=== PATIENT | male | born 1945 | race Caucasian/White ===

== ENCOUNTER 2017-07-15 16:09 | Inpatient (IN) | payer MEDICARE ==
[~2017-07-15] VITALS: Ht 188 cm; Wt 99.5 kg
[2017-07-15] VITALS (9 sets, daily range): BP systolic 93–112; BP diastolic 61–71; PULSE 60–74; RESP 18–22; TEMP 97.2–97.6; O2SAT 85–100
[2017-07-15] MEDS: methylPREDNISolone SOD SUCC 40 MG/1 ML VIAL IV PUSH SCH ×5 (06:00→22:58)
[~2017-07-15 16:09] MED LIST: ALLO100T PO; AMLO2.5T PO; ASPI81TA82 PO; FERR324T4 PO; FOLI1TAB PO; FURO1TAB93 PO; LEVO.05 PO; METO100T PO; MULT-65 PO; Z.0.OXYGENDME NC
--- NOTE | 2017-07-15 16:50 | PD ---
HPI Chief Complaint: Respiratory Symptoms Time Seen by Provider: 16:47 Travel History International Travel<30 days: No Contact w/Intl Traveler<30days: No Traveled to known affect area: No History of Present Illness HPI Patient complaining of increased leg swelling bilaterally as well as increasing shortness of breath. Patient states that he uses 2 L of nasal cannula oxygen all the time. Patient states that he is shortness of breath have been progressively worsening. Denies any active chest pain. Shortness of breath is worsened by laying flat on his back improves when he leans forward or sits up. Patient was also increasing his own home O2 in an attempt to compensate for the progressive shortness of breath. He started to make an appointment and to follow-up with his primary because he was running out of oxygen. Patient states that he has been compliant with his Lasix. Dr. Culp insert primary care doctor Allergies to cefuroxime, ciprofloxacin Past medical history significant for seizures CHF hypercholesterolemia A. fib hypertension COPD GERD appendectomy hypothyroid renal disease history of cirrhosis as well PFSH Past Medical History Hx Anticoagulant Therapy: Yes (325 MG ASA DAILY) Arthritis: Yes Asthma: No Autoimmune Disease: No Blood Disorders: No Heart Rhythm Problems: No Cancer: No Cardiovascular Problems: Yes High Cholesterol: Yes Chemotherapy: No Chest Pain: No Congestive Heart Failure: Yes COPD: No Diabetes: No Diminished Hearing: No Endocrine: No Gastrointestinal Disorders: No Glaucoma: No Gout: Yes Genitourinary: No Hypertension: Yes Immune Disorder: No Implanted Vascular Access Dvce: No Musculoskeletal: Yes Neurologic: No Psychiatric: No Reproductive: No Respiratory: Yes Immunizations Current: Yes Myocardial Infarction: No Radiation Therapy: No Seizures: Yes Sleep Apnea: No Thyroid Disease: Yes (on synthroid) Past Surgical History Abdominal Surgery: Yes (50 YEARS AGO APPENDECTOMY) AICD: No Appendectomy: Yes (9 yrs old) Cardiac Surgery: No Ear Surgery: No Endocrine Surgery: No Eye Surgery: No Genitourinary Surgery: No Gynecologic Surgery: No Insulin Pump: No Joint Replacement: No Neurologic Surgery: No Oral Surgery: No Pacemaker: No Thoracic Surgery: No Other Surgery: Yes Social History Alcohol Use: No (states "not any more") Tobacco Use: No Substance Use: No Allergies-Medications (Allergen,Severity, Reaction): Coded Allergies: cefuroxime (Unverified Allergy, Intermediate, hives, 07/15/17) ciprofloxacin (Unverified Allergy, Intermediate, HIVES, 07/15/17) Reported Meds & Prescriptions Reported Meds & Active Scripts Active Reported Levothyroxine (Levothyroxine Sodium) 50 Mcg Tab 50 Mcg PO DAILY Metoprolol Tartrate 100 Mg Tab 100 Mg PO DAILY Furosemide 20 Mg Tab 20 Mg PO BID Amlodipine (Amlodipine Besylate) 5 Mg Tab 5 Mg PO DAILY Folic Acid 1 Mg Tablet 1 Mg PO HS Allopurinol 300 Mg Tab 150 Mg PO HS Aspirin 81 Mg Chew 81 Mg CHEW DAILY Once Daily (Multivitamin) 1 Each Tablet 1 Tab PO DAILY Duoneb (Ipratropium-Albuterol Neb) 0.5-2.5 Mg/3 Ml Neb 1 Nebule INH Q6HR NEB PRN Oxygen (O2) Device Liter BK.CANULA CONTINUOUS Oxygen Concentrator Portable Gaseous 2 L/min via Nasal Canula Continuous For 99 months Review of Systems General / Constitutional: No: Fever Eyes: No: Visual changes HENT: No: Headaches Cardiovascular: Positive: Edema Respiratory: Positive: Shortness of Breath, Orthopnea Gastrointestinal: No: Abdominal Pain Genitourinary: No: Dysuria Musculoskeletal: No: Pain Skin: No Rash Neurologic: No: Weakness Psychiatric: No: Depression Endocrine: No: Polydipsia Hematologic/Lymphatic: No: Easy Bruising Physical Exam Narrative GENERAL: SKIN: Warm and dry. HEAD: Atraumatic. Normocephalic. EYES: Pupils equal and round. No scleral icterus. No injection or drainage. ENT: No nasal bleeding or discharge. Mucous membranes pink and moist. NECK: Trachea midline. No JVD. CARDIOVASCULAR: Tachycardic and irregular RESPIRATORY: No accessory muscle use. Tachypneic, bilateral crackles up to half of the lower lungs GASTROINTESTINAL: Abdomen soft, non-tender, nondistended. MUSCULOSKELETAL: Extremities without clubbing, presents acrocyanosis, bilateral pitting edema 3+ . No obvious deformities. NEUROLOGICAL: Awake and alert. No obvious cranial nerve deficits. Motor grossly within normal limits. Five out of 5 muscle strength in the arms and legs. Normal speech. PSYCHIATRIC: Appropriate mood and affect; insight and judgment normal. Data Data Last Documented VS Vital Signs Date Time Temp Pulse Resp B/P (MAP) Pulse Ox O2 Delivery O2 Flow Rate FiO2 07/15/17 19:00 60 20 93/61 (72) 99 BiPAP 07/15/17 18:31 50 2/22/18 16:57 2.00 07/15/17 16:27 97.2 Orders Orders Complete Blood Count With Diff (07/15/17 16:50) Comprehensive Metabolic Panel (07/15/17 16:50) B-Type Natriuretic Peptide (07/15/17 16:50) Act Partial Throm Time (Ptt) (07/15/17 16:50) Prothrombin Time / Inr (Pt) (07/15/17 16:50) Ckmb (Isoenzyme) Profile (07/15/17 16:50) Troponin I (07/15/17 16:50) Arterial Blood Gas (Abg) (07/15/17 16:50) Influenzae A/B Antigen (07/15/17 16:50) Iv Access Insert/Monitor (07/15/17 16:50) Electrocardiogram (07/15/17 16:50) Ecg Monitoring (07/15/17 16:50) Oximetry (07/15/17 16:50) Oxygen Administration (07/15/17 16:50) Chest, Single Ap (07/15/17 16:50) Sodium Chloride 0.9% Flush (Ns Flush) (07/15/17 17:00) Furosemide Inj (Lasix Inj) (07/15/17 17:00) Resp Bipap / Cpap Non Invas Vt (07/15/17 16:50) Labs Laboratory Tests Test 07/15/17 17:00 07/15/17 17:35 White Blood Count 8.1 TH/MM3 Red Blood Count 5.08 MIL/MM3 Hemoglobin 16.1 GM/DL Hematocrit 47.0 % Mean Corpuscular Volume 92.5 FL Mean Corpuscular Hemoglobin 31.7 PG Mean Corpuscular Hemoglobin Concent 34.2 % Red Cell Distribution Width 17.8 % Platelet Count 280 TH/MM3 Mean Platelet Volume 7.6 FL Neutrophils (%) (Auto) 80.4 % Lymphocytes (%) (Auto) 6.5 % Monocytes (%) (Auto) 7.1 % Eosinophils (%) (Auto) 3.2 % Basophils (%) (Auto) 2.8 % Neutrophils # (Auto) 6.5 TH/MM3 Lymphocytes # (Auto) 0.5 TH/MM3 Monocytes # (Auto) 0.6 TH/MM3 Eosinophils # (Auto) 0.3 TH/MM3 Basophils # (Auto) 0.2 TH/MM3 CBC Comment DIFF FINAL Differential Comment Prothrombin Time 11.4 SEC Prothromb Time International Ratio 1.1 RATIO Activated Partial Thromboplast Time 26.9 SEC Blood Urea Nitrogen 25 MG/DL Creatinine 1.60 MG/DL Random Glucose 74 MG/DL Total Protein 6.1 GM/DL Albumin 2.0 GM/DL Calcium Level 8.1 MG/DL Alkaline Phosphatase 80 U/L Aspartate Amino Transf (AST/SGOT) 20 U/L Alanine Aminotransferase (ALT/SGPT) 10 U/L Total Bilirubin 0.9 MG/DL Sodium Level 135 MEQ/L Potassium Level 4.2 MEQ/L Chloride Level 100 MEQ/L Carbon Dioxide Level 29.3 MEQ/L Anion Gap 6 MEQ/L Estimat Glomerular Filtration Rate 43 ML/MIN Total Creatine Kinase 88 U/L Troponin I LESS THAN 0.02 NG/ML B-Type Natriuretic Peptide 842 PG/ML Blood Gas Puncture Site LT RADIAL Blood Gas Patient Temperature 98.6 Blood Gas HCO3 26 mmol/L Blood Gas Base Excess 3.0 mmol/L Blood Gas Oxygen Saturation 96 % Arterial Blood pH 7.49 Arterial Blood Partial Pressure CO2 35 mmHG Arterial Blood Partial Pressure O2 120 mmHG Arterial Blood Oxygen Content 20.4 Vol % Arterial Blood Carboxyhemoglobin 2.5 % Arterial Blood Methemoglobin 0.9 % Blood Gas Hemoglobin 15.1 G/DL Oxygen Delivery Device BIPAP Blood Gas Ventilator Setting IPAP 15/EPAP 5 Blood Gas Inspired Oxygen 50 % [facility] Medical Decision Making Medical Screen Exam Complete: Yes Emergency Medical Condition: Yes Medical Record Reviewed: Yes Interpretation(s) EKG shows atrial fibrillation with controlled ventricular rate in the 60s, no major evidence of ST elevation noted. Differential Diagnosis Congestive heart failure decompensated versus hypoxic respiratory failure versus pulmonary edema versus Narrative Course The patient has history of congestive heart failure as well as chronic kidney disease and atrial fibrillation, this patient came in on oxygen yet still with a good plETH wave patient's pulse ox was reading in the 70s on 2 L, and on 4 L up to 85 again with good PLETH wave, both of these are severely hypoxemic and abnormal. Patient will be placed on BiPAP and oxygen. To attempt and help the patient compensate CBC shows no leukocytosis no shift and no anemia. Coagulation profile within normal limits ABG after CPAP on 50% IPAP 15 EPAP 5 BiPAP shows ABG pH 7.49 PCO2 35 PaO2 120 Chemistry shows a beta natruretic peptide of 842 troponin of less than 0.02 creatinine 1.6 with a GFR of 43 rest of the electrolytes are within normal limits these findings are consistent with chronic kidney disease as well as congestive heart failure. Chest x-ray is consistent with cardiomegaly and bilateral lower lung edema As previously mentioned the patient was aggressively treated with BiPAP oxygen Lasix and now the patient is doing much better with a pulse ox 96-98 while on BiPAP. Currently do not believe that the patient is in extremis anymore and does not require or need any intubation at this present time. Currently awaiting [facility] for admission Critical Care Narrative CRITICAL CARE NOTE: With evaluation of the patient, labs, EKG, receipt of radiologic studies, administration of medications, reevaluation the patient and discussion of the patient with the admitting physicians, the total critical care time was [60] minutes. Time to perform other separately billable procedures was not included in the critical care time. Physician Communication Physician Communication [facility] recommended admission for dairy nutrition specialist, [id number] dairy nutrition specialist was called for admission Diagnosis Primary Impression: Decompensated CHF exacerbation on BiPAP Additional Impression: Hypoxemic respiratory failure status post BiPAP Admitting Information Admitting Physician Requests: Admit Kwan Aranda MD Jul 15, 2017 16:50
[2017-07-15] MEDS ORDERED: SODIUM CHLORIDE 0.9% FLUSH 10 ML FLUSH IVF PRN (17:00)
[2017-07-15] MEDS ORDERED: FUROSEMIDE 20 MG/2 ML VIAL IVP ONE (17:00)
[2017-07-15] MEDS ORDERED: ALLO300T2 PO (17:20)
[2017-07-15] MEDS ORDERED: IPRASOL INH (17:20)
[2017-07-15] MEDS ORDERED: ASPI-516 CHEW (17:20)
[2017-07-15] MEDS ORDERED: OXYGENDME NAS.CANULA (17:20)
[2017-07-15] MEDS ORDERED: METO100T PO (17:20)
[2017-07-15] MEDS ORDERED: ONCETAB7 PO (17:20)
[2017-07-15] MEDS ORDERED: AMLO5TAB2 PO (17:20)
[2017-07-15] MEDS ORDERED: FOLI1TAB6 PO (17:20)
[2017-07-15] MEDS ORDERED: LEVO50TA4 PO (17:20)
[2017-07-15] MEDS ORDERED: FURO20TA PO (17:20)
[2017-07-15 17:27] LABS: AUTOMATED NEUTROPHIL # 6.5 TH/MM3 (1.8-7.7); BASOPHIL # 0.2 TH/MM3 (0-0.2); BASOPHIL % 2.8 % (0.0-2.0); EOSINOPHIL # 0.3 TH/MM3 (0-0.4); EOSINOPHIL % 3.2 % (0.0-4.0); HEMOGLOBIN 16.1 GM/DL (13.0-17.0); LYMPH % 6.5 % (9.0-44.0); LYMPHOCYTE # 0.5 TH/MM3 (1.0-4.8); MEAN CELL VOLUME 92.5 FL (80.0-100.0); MEAN CORPUSCULAR HEMOGLOBIN 31.7 PG (27.0-34.0); MEAN CORPUSCULAR HGB CONC 34.2 % (32.0-36.0); MEAN PLATELET VOLUME 7.6 FL (7.0-11.0); MONO % 7.1 % (0.0-8.0); MONOCYTE # 0.6 TH/MM3 (0-0.9); NEUT % 80.4 % (16.0-70.0); PLATELET COUNT 280 TH/MM3 (150-450); RED BLOOD COUNT 5.08 MIL/MM3 (4.50-5.90); RED CELL DISTRIBUTION WIDTH 17.8 % (11.6-17.2); WHITE BLOOD COUNT 8.1 TH/MM3 (4.0-11.0)
--- NOTE | 2017-07-15 17:28 | RADRPT ---
EXAM DATE/TIME: 07/15/2017 17:12 [facility] COMPARISON: CHEST SINGLE AP, July 18, 2015, 6:28. INDICATIONS : Shortness of breath. MEDICAL HISTORY : Chronic obstructive pulmonary disease. Congestive heart failure. Hypercholesterolemia. Hyperten greg. Thyroid disease, of synthroid. Emphysema. Dyspnea. Arthritis. Gout. Shingles. SURGICAL HISTORY : Appendectomy ENCOUNTER: Initial ACUITY: 1 day PAIN SCORE: 0/10 LOCATION: Bilateral chest FINDINGS: Moderately severe cardiomegaly similar to prior exam in 2016. There are patchy areas of partially co nsolidative infiltrate in the mid and lower lungs bilaterally. The upper lungs are clear. CONCLUSION: Cardiomegaly and patchy areas of airspace opacity in the mid and lower lungs bilaterally. Tico Rivers MD on July 15, 2017 at 17:26 Board Certified Radiologist. This report was verified electronically.
[2017-07-15 17:36] LABS: CHLORIDE 100 MEQ/L (98-107); SODIUM (NA) 135 MEQ/L (136-145)
[2017-07-15 17:39] LABS: CALCIUM 8.1 MG/DL (8.5-10.1)
[2017-07-15 17:40] LABS: BICARBONATE 29.3 MEQ/L (21.0-32.0); BLOOD UREA NITROGEN 25 MG/DL (7-18); GLUCOSE,RANDOM 74 MG/DL (74-106)
[2017-07-15 17:41] LABS: INTERNATIONAL NORMALIZED RATIO 1.1 RATIO; PROTHROMBIN TIME - PATIENT 11.4 SEC (9.8-11.6)
[2017-07-15 17:43] LABS: ALT (GPT) 10 U/L (12-78); AST (GOT) 20 U/L (15-37); GLOMERULAR FILTRATION RATE 43 ML/MIN (>89)
[2017-07-15 17:44] LABS: TOTAL BILIRUBIN ADULT 0.9 MG/DL (0.2-1.0)
[2017-07-15 17:45] LABS: TOTAL PROTEIN 6.1 GM/DL (6.4-8.2)
[2017-07-15 17:46] LABS: ALKALINE PHOSPHATASE 80 U/L (45-117)
[2017-07-15 17:48] LABS: TROPONIN I LESS THAN 0.02 NG/ML (0.02-0.05)
[2017-07-15] MEDS ORDERED: SODIUM CHLORIDE 0.9% FLUSH 10 ML FLUSH IV FLUSH PRN (20:15)
[2017-07-15] MEDS ORDERED: MISCELLANEOUS NURSING INFORMATION XX SCH (20:15)
[2017-07-15] MEDS ORDERED: CHLORHEXIDINE GLUCONATE 2 % 1 PACK (2 CLOTHS) TOP PRN (20:15)
[2017-07-15] MEDS ORDERED: BISACODYL 10 MG SUPP RECTAL PRN (21:00)
[2017-07-15] MEDS ORDERED: LACTULOSE SYRUP 20 GM/30 ML CUP PO PRN (21:00)
[2017-07-15] MEDS ORDERED: TEMAZEPAM 15 MG CAP PO PRN (21:00)
[2017-07-15] MEDS ORDERED: ONDANSETRON HCL 4 MG/2 ML VIAL IV PUSH PRN (21:00)
[2017-07-15] MEDS: ALLOPURINOL 300 MG TAB PO SCH (21:00)
[2017-07-15] MEDS ORDERED: MAGNESIUM HYDROXIDE SUSP 30 ML CUP PO PRN (21:00)
[2017-07-15] MEDS ORDERED: PILL SPLITTER OTHER PRN (21:00)
[2017-07-15] MEDS ORDERED: FUROSEMIDE 20 MG TAB PO SCH (21:00)
[2017-07-15] MEDS ORDERED: SENNOSIDES 8.6 MG TAB PO PRN (21:00)
[2017-07-15] MEDS: DOCUSATE SODIUM 50 MG/SENNA 8.6 MG TAB PO SCH (21:21)
[2017-07-15] MEDS: FAMOTIDINE 20 MG TAB PO SCH (21:21)
[2017-07-15] MEDS: FOLIC ACID 1 MG TAB PO SCH (21:21)
[2017-07-15] MEDS: DOXYCYCLINE HYCLATE 100 MG CAP PO SCH (21:21)
[2017-07-15] MEDS: SODIUM CHLORIDE 0.9% FLUSH 10 ML FLUSH IV FLUSH SCH (21:22)
[2017-07-15] MEDS ORDERED: RESP: ALBUTEROL 2.5 MG/IPRATROPIUM 0.5 MG NEB (PRN) INH (22:00)
[2017-07-15] MEDS: HEPARIN SODIUM - SQ 10,000 UNITS/ML VIAL SQ SCH (22:22)
[2017-07-15 22:25] LABS: BICARBONATE 32.8 MEQ/L (21.0-32.0)
[2017-07-15 22:28] LABS: CREATININE 1.5 MG/DL (0.60-1.30)
[2017-07-15] MEDS: RESP: ALBUTEROL 2.5 MG/IPRATROPIUM 0.5 MG NEB (SCH) INH (23:50)
[2017-07-16] VITALS (37 sets, daily range): BP systolic 80–105; BP diastolic 49–69; PULSE 66–108; RESP 10–30; TEMP 97.4–98.8; O2SAT 88–97
[2017-07-16] MEDS ORDERED: ACETAMINOPHEN 325 MG TAB PO PRN
[2017-07-16 02:31] LABS: AUTOMATED NEUTROPHIL # 5.7 TH/MM3 (1.8-7.7); BASOPHIL % 0.3 % (0.0-2.0); EOSINOPHIL % 0.4 % (0.0-4.0); HEMATOCRIT 43.5 % (39.0-51.0); HEMOGLOBIN 14.2 GM/DL (13.0-17.0); LYMPH % 4.2 % (9.0-44.0); LYMPHOCYTE # 0.3 TH/MM3 (1.0-4.8); MEAN CORPUSCULAR HEMOGLOBIN 30.1 PG (27.0-34.0); MEAN CORPUSCULAR HGB CONC 32.7 % (32.0-36.0); MEAN PLATELET VOLUME 7.9 FL (7.0-11.0); MONO % 0.7 % (0.0-8.0); NEUT % 94.4 % (16.0-70.0); PLATELET COUNT 243 TH/MM3 (150-450); RED BLOOD COUNT 4.73 MIL/MM3 (4.50-5.90); RED CELL DISTRIBUTION WIDTH 17.1 % (11.6-17.2)
[2017-07-16 02:41] LABS: CHLORIDE 101 MEQ/L (98-107); SODIUM (NA) 136 MEQ/L (136-145)
[2017-07-16 02:44] LABS: CALCIUM 7.7 MG/DL (8.5-10.1)
[2017-07-16 02:45] LABS: ALBUMIN 1.7 GM/DL (3.4-5.0); BICARBONATE 28.3 MEQ/L (21.0-32.0); BLOOD UREA NITROGEN 28 MG/DL (7-18); GLUCOSE,RANDOM 121 MG/DL (74-106); INTERNATIONAL NORMALIZED RATIO 1.2 RATIO; MAGNESIUM 2.1 MG/DL (1.5-2.5)
[2017-07-16 02:48] LABS: ALT (GPT) 9 U/L (12-78); AST (GOT) 19 U/L (15-37); GLOMERULAR FILTRATION RATE 46 ML/MIN (>89); PHOSPHORUS 3.8 MG/DL (2.5-4.9)
[2017-07-16 02:49] LABS: TOTAL BILIRUBIN ADULT 0.9 MG/DL (0.2-1.0); TOTAL PROTEIN 5.2 GM/DL (6.4-8.2)
[2017-07-16 02:51] LABS: ALKALINE PHOSPHATASE 72 U/L (45-117)
[2017-07-16] MEDS: RESP: ALBUTEROL 2.5 MG/IPRATROPIUM 0.5 MG NEB (SCH) INH (03:01)
[2017-07-16] MEDS: CHLORHEXIDINE GLUCONATE 2 % 1 PACK (2 CLOTHS) TOP SCH (04:00)
[2017-07-16] MEDS: HEPARIN SODIUM - SQ 10,000 UNITS/ML VIAL SQ SCH ×3 (06:01→20:25)
[2017-07-16] MEDS: LEVOTHYROXINE SODIUM 50 MCG TAB PO SCH (06:01)
[2017-07-16] MEDS: methylPREDNISolone SOD SUCC 40 MG/1 ML VIAL IV PUSH SCH ×3 (06:01→17:55)
--- NOTE | 2017-07-16 06:26 | RADRPT ---
EXAM DATE/TIME: 07/16/2017 05:33 [facility] COMPARISON: CHEST SINGLE AP, July 15, 2017, 17:12. INDICATIONS : Shortness of breath MEDICAL HISTORY : Chronic obstructive pulmonary disease. Congestive heart failure. Hypercholesterolemia. Hypertension. Thyroid disease, of synthroid. Emphysema. Dyspnea. Arthritis. Gout. Shingles. SURGICAL HISTORY : Appendectomy. ENCOUNTER: Subsequent ACUITY: 2 days PAIN SCORE: 0/10 LOCATION: Bilateral chest FINDINGS: Bibasilar consolidation again noted with small pleural effusions not significantly changed. No pneumo thorax. Mild to moderate cardiomegaly again noted. CONCLUSION: Persistent failure. No significant change. Mark Fuentes MD on July 16, 2017 at 6:24 Board Certified Radiologist. This report was verified electronically.
--- NOTE | 2017-07-16 07:04 | HHI.HP ---
[facility] Service Critical Care Medicine Primary Care Physician Bill Culp MD Admission Diagnosis CHF Diagnosis: (1) Acute hypoxemic respiratory failure Diagnosis: Principal (2) Acute exacerbation of CHF (congestive heart failure) Diagnosis: Principal (3) COPD with acute exacerbation Diagnosis: Principal (4) Acute kidney injury superimposed on CKD Diagnosis: Principal (5) Cellulitis of right leg Diagnosis: Secondary (6) Chronic atrial fibrillation Diagnosis: Secondary (7) Hypothyroidism Diagnosis: Secondary (8) Hypertension Diagnosis: Secondary Chief Complaint: Shortness of breath and hypoxia Travel History International Travel<30 Days: No Contact w/Intl Traveler <30 Da: No Traveled to Known Affected Are: No Sepsis Criteria SIRS Criteria (2 or more): RR > 20 or PaCO2 < 32 History of Present Illness Patient is a 71-year-old male with past medical history significant for congestive heart failure, dyslipidemia, chronic A. fib, COPD, hypertension, hypothyroidism, chronic kidney disease, history of alcoholic liver disease who presented to the emergency department yesterday with shortness of breath and increasing bilateral pedal edema. He also gave history of orthopnea. Uses 2 L of home oxygen on arrival to the ED his oxygen saturation was in mid 70s. Patient was immediately placed on BiPAP with 50% oxygen, with improvement in oxygen saturation. ABG on 50% BIPAP ABG pH 7.49 PCO2 35 PaO2 120. Chest x-ray showed evidence of congestive heart failure. Chemistry shows a BNP of 842, creatinine 1.6. Serial troponins have been negative. Patient was admitted to the ICU with admitting diagnosis of CHF exacerbation and COPD exacerbation. Patient was placed on IV Lasix 40 mg every 12, IV Solu-Medrol 40 mg every 6 hours DuoNeb every 4 hours scheduled and as needed and antibiotics with doxycycline I evaluated the patient in the ICU today. He tolerated BiPAP well currently on nasal cannula with good oxygen saturation. Mild tachypnea but subjectively feels improved. Urine output 700 mL since coming to the ICU. Chest x-ray on my review shows slight improvement in congestive heart failure Review of Systems ROS Limitations: Other Past Family Social History Allergies: Coded Allergies: cefuroxime (Unverified Allergy, Intermediate, hives, 07/15/17) ciprofloxacin (Unverified Allergy, Intermediate, HIVES, 07/15/17) Past Medical History COPD O2 dependent CHF Chronic A fib Obesity Hypertension Hypothyroidism CKD History of alcohol abuse quit in 2014 Past Surgical History Appendectomy Reported Medications Levothyroxine (Levothyroxine Sodium) 50 Mcg Tab 50 Mcg PO DAILY Metoprolol Tartrate 100 Mg Tab 100 Mg PO DAILY Furosemide 20 Mg Tab 20 Mg PO BID Amlodipine (Amlodipine Besylate) 5 Mg Tab 5 Mg PO DAILY Folic Acid 1 Mg Tablet 1 Mg PO HS Allopurinol 300 Mg Tab 150 Mg PO HS Aspirin 81 Mg Chew 81 Mg CHEW DAILY Once Daily (Multivitamin) 1 Each Tablet 1 Tab PO DAILY Duoneb (Ipratropium-Albuterol Neb) 0.5-2.5 Mg/3 Ml Neb 1 Nebule INH Q6HR NEB PRN Oxygen (O2) Active Ordered Medications Reviewed Family History Father in his late 70s unknown causes, Mother is has lupus Social History 50 pk yr history quit about 15 yrs ago Quit alcohol use 2 yrs ago Physical Exam Vital Signs Vital Signs Date Time Temp Pulse Resp B/P (MAP) Pulse Ox O2 Delivery O2 Flow Rate FiO2 07/16/17 06:00 72 13 84/53 (63) 92 07/16/17 06:00 72 07/16/17 05:00 76 19 85/60 (68) 90 07/16/17 04:00 97.8 76 22 87/52 (64) 88 07/16/17 04:00 76 07/16/17 03:00 70 15 90/61 (71) 93 07/16/17 03:00 94 Nasal Cannula 6.00 07/16/17 02:00 66 07/16/17 02:00 66 16 90/62 (71) 92 07/16/17 01:40 95 30 07/16/17 01:00 68 10 87/54 (65) 93 07/16/17 00:00 66 07/16/17 00:00 97 30 07/16/17 00:00 Bi-Pap 30 07/16/17 00:00 97.8 66 19 98/65 (76) 95 07/15/17 23:00 74 22 105/69 (81) 91 07/15/17 22:30 92 Nasal Cannula 6.00 07/15/17 22:10 Bi-Pap 40 07/15/17 22:05 07/15/17 22:00 97.6 112/70 (84) 07/15/17 19:51 100 40 07/15/17 19:00 60 20 93/61 (72) 99 BiPAP 07/15/17 18:31 63 20 99/69 (79) 99 BiPAP 50 07/15/17 17:13 99 50 07/15/17 16:57 22 85 Nasal Cannula 2.00 07/15/17 16:57 85 Nasal Cannula 2.00 07/15/17 16:51 85 Nasal Cannula 4.00 07/15/17 16:27 97.2 61 18 109/71 (84) Physical Exam GENERAL: Lying in bed, mild respiratory distress, on NC SKIN: Warm and dry. HEAD: Atraumatic. Normocephalic. EYES: Pupils equal and round. No scleral icterus. ENT: No nasal bleeding or discharge. Airway patent NECK: Trachea midline. CARDIOVASCULAR: Atrial fibrillation rate controlled RESPIRATORY: Mild tachypnea, bilateral crackles at lung bases GASTROINTESTINAL: Abdomen soft, non-tender, nondistended. MUSCULOSKELETAL: Extremities bilateral pitting edema 2+ . Chronic venous stasis changes. Possible cellulitis right lower extremity (patient states chronically red) NEUROLOGICAL: Awake and alert. No obvious cranial nerve deficits. Motor grossly within normal limits. Laboratory Laboratory Tests Test 07/15/17 17:00 07/15/17 17:35 07/15/17 20:25 07/15/17 21:47 White Blood Count 8.1 Red Blood Count 5.08 Hemoglobin 16.1 Hematocrit 47.0 Mean Corpuscular Volume 92.5 Mean Corpuscular Hemoglobin 31.7 Mean Corpuscular Hemoglobin Concent 34.2 Red Cell Distribution Width 17.8 Platelet Count 280 Mean Platelet Volume 7.6 Neutrophils (%) (Auto) 80.4 Lymphocytes (%) (Auto) 6.5 Monocytes (%) (Auto) 7.1 Eosinophils (%) (Auto) 3.2 Basophils (%) (Auto) 2.8 Neutrophils # (Auto) 6.5 Lymphocytes # (Auto) 0.5 Monocytes # (Auto) 0.6 Eosinophils # (Auto) 0.3 Basophils # (Auto) 0.2 CBC Comment DIFF FINAL Differential Comment Prothrombin Time 11.4 Prothromb Time International Ratio 1.1 Activated Partial Thromboplast Time 26.9 Blood Urea Nitrogen 25 25 Creatinine 1.60 1.50 Random Glucose 74 76 Total Protein 6.1 Albumin 2.0 Calcium Level 8.1 8.0 Alkaline Phosphatase 80 Aspartate Amino Transf (AST/SGOT) 20 Alanine Aminotransferase (ALT/SGPT) 10 Total Bilirubin 0.9 Sodium Level 135 137 Potassium Level 4.2 4.1 Chloride Level 100 99 Carbon Dioxide Level 29.3 32.8 Anion Gap 6 5 Estimat Glomerular Filtration Rate 43 46 Total Creatine Kinase 88 Troponin I LESS THAN 0.02 LESS THAN 0.02 B-Type Natriuretic Peptide 842 Blood Gas Puncture Site LT RADIAL Blood Gas Patient Temperature 98.6 Blood Gas HCO3 26 Blood Gas Base Excess 3.0 Blood Gas Oxygen Saturation 96 Arterial Blood pH 7.49 Arterial Blood Partial Pressure CO2 35 Arterial Blood Partial Pressure O2 120 Arterial Blood Oxygen Content 20.4 Arterial Blood Carboxyhemoglobin 2.5 Arterial Blood Methemoglobin 0.9 Blood Gas Hemoglobin 15.1 Oxygen Delivery Device BIPAP Blood Gas Ventilator Setting IPAP 15/EPAP 5 Blood Gas Inspired Oxygen 50 Test 07/15/17 22:43 07/16/17 02:14 Nasal Screen MRSA (PCR) MRSA NOT DETECTED White Blood Count 6.0 Red Blood Count 4.73 Hemoglobin 14.2 Hematocrit 43.5 Mean Corpuscular Volume 92.0 Mean Corpuscular Hemoglobin 30.1 Mean Corpuscular Hemoglobin Concent 32.7 Red Cell Distribution Width 17.1 Platelet Count 243 Mean Platelet Volume 7.9 Neutrophils (%) (Auto) 94.4 Lymphocytes (%) (Auto) 4.2 Monocytes (%) (Auto) 0.7 Eosinophils (%) (Auto) 0.4 Basophils (%) (Auto) 0.3 Neutrophils # (Auto) 5.7 Lymphocytes # (Auto) 0.3 Monocytes # (Auto) 0.0 Eosinophils # (Auto) 0.0 Basophils # (Auto) 0.0 CBC Comment DIFF FINAL Differential Comment Prothrombin Time 12.0 Prothromb Time International Ratio 1.2 Activated Partial Thromboplast Time 27.4 Blood Urea Nitrogen 28 Creatinine 1.50 Random Glucose 121 Total Protein 5.2 Albumin 1.7 Calcium Level 7.7 Phosphorus Level 3.8 Magnesium Level 2.1 Alkaline Phosphatase 72 Aspartate Amino Transf (AST/SGOT) 19 Alanine Aminotransferase (ALT/SGPT) 9 Total Bilirubin 0.9 Sodium Level 136 Potassium Level 4.3 Chloride Level 101 Carbon Dioxide Level 28.3 Anion Gap 7 Estimat Glomerular Filtration Rate 46 Troponin I LESS THAN 0.02 Date/Time Source Procedure Growth Status 07/15/17 17:00 Nasal Washing Influenza Types A,B Antigen (CORRINE) - Final NEGATIVE FOR FLU A AND B ANTIGEN.... Complete Result Diagram: 07/16/1721307/16/17213 Imaging CXR shows evidence of CHF Septic Shock Reassessment Septic shock perfusion: reassessment completed Caprini VTE Risk Assessment Caprini VTE Risk Assessment: Mod/High Risk (score >= 2) Caprini Risk Assessment Model Point Value = 1 Point Value = 2 Point Value = 3 Point Value = 5 Age 41-60 Minor surgery BMI > 25 kg/m2 Swollen legs Varicose veins or History of unexplained or recurrent spontaneous Oral contraceptives or hormone replacement Sepsis (< 1 month) Serious lung disease, including pneumonia (< 1 month) Abnormal pulmonary function Acute myocardial infarction Congestive heart failure (< 1 month) History of inflammatory bowel disease Medical patient at bed rest Age 61-74 Arthroscopic surgery Major open surgery (> 45 min) Laparoscopic surgery (> 45 min) Malignancy Confined to bed (> 72 hours) Immobilizing plaster cast Central venous access Age >= 75 History of VTE Family history of VTE Factor V Leiden Prothrombin 29015A Lupus anticoagulant Anticardiolipin antibodies Elevated serum homocysteine Heparin-induced thrombocytopenia Other congenital or acquired thrombophilia Stroke (< 1 month) Elective arthroplasty Hip, pelvis, or leg fracture Acute spinal cord injury (< 1 month) Prophylaxis Regimen Total Risk Factor Score Risk Level Prophylaxis Regimen 0-1 Low Early ambulation 2 Moderate Order ONE of the following: *Sequential Compression Device (SCD) *Heparin 5000 units SQ BID 3-4 Higher Order ONE of the following medications: *Heparin 5000 units SQ TID *Enoxaparin/Lovenox 40 mg SQ daily (WT < 150 kg, CrCl > 30 mL/min) *Enoxaparin/Lovenox 30 mg SQ daily (WT < 150 kg, CrCl > 10-29 mL/min) *Enoxaparin/Lovenox 30 mg SQ BID (WT < 150 kg, CrCl > 30 mL/min) AND/OR *Sequential Compression Device (SCD) 5 or more Highest Order ONE of the following medications: *Heparin 5000 units SQ TID (Preferred with Epidurals) *Enoxaparin/Lovenox 40 mg SQ daily (WT < 150 kg, CrCl > 30 mL/min) *Enoxaparin/Lovenox 30 mg SQ daily (WT < 150 kg, CrCl > 10-29 mL/min) *Enoxaparin/Lovenox 30 mg SQ BID (WT < 150 kg, CrCl > 30 mL/min) AND *Sequential Compression Device (SCD) Assessment and Plan Assessment and Plan Assessment and Plan Neuro: History of Alcohol abuse - Neuro checks per protocol CV: Acute exacerbation of chronic diastolic heart failure Chronic atrial fibrillation - Continue IV Lasix 40 mg every 12 hours - Continue home aspirin and metoprolol - Discontinue amlodipine due to chronic worsening pedal edema - Serial troponins are negative, 2D echo ordered Resp: Acute hypoxemic respiratory failure Acute COPD exacerbation Chronic respiratory failure on home oxygen - Scheduled bronchodilator therapy with DuoNeb every 4 hours and as needed - Start Symbicort - Consult pulmonology - Use BiPAP PRN - Incentive spirometry every hour while awake, EzPAP GI: GERD - Continue famotidine Endo: Hypothyroidism - Continue levothyroxine, check TSH Renal: Acute on Chronic kidney disease - Continue diuresis with IV Lasix - Monitor strict intake output, monitor BUN/creatinine Heme: - Monitor CBC, coags ID: Right lower extremity cellulitis - Continue doxycycline-started in emergency department, follow up on blood cultures Access - PIV Prophylaxis - GI - Famotidine - DVT - Heparin Critical Care: Level 3 H&P Hospitalist to assume care in am Code Status Full Discussed Condition With D/w CURATOR [employer] and patient Problem Qualifiers (1) Acute exacerbation of CHF (congestive heart failure): Qualified Codes: I50.33 - Acute on chronic diastolic (congestive) heart failure (2) Hypertension: Qualified Codes: I10 - Essential (primary) hypertension Ayo Flores MD Jul 16, 2017 07:04
[2017-07-16] MEDS: RESP: ALBUTEROL 2.5 MG/IPRATROPIUM 0.5 MG NEB (SCH) NEB ×4 (07:28→20:00)
[2017-07-16] MEDS: DOCUSATE SODIUM 50 MG/SENNA 8.6 MG TAB PO SCH ×2 (08:16→20:23)
[2017-07-16] MEDS: FUROSEMIDE 40 MG/4 ML VIAL IV PUSH SCH ×2 (08:16→17:55)
[2017-07-16] MEDS: ASPIRIN 81 MG CHEW TAB CHEW SCH (08:16)
[2017-07-16] MEDS: MULTIVITAMIN TAB PO SCH (08:16)
[2017-07-16] MEDS: FAMOTIDINE 20 MG TAB PO SCH ×2 (08:16→20:23)
[2017-07-16] MEDS: amLODIPine BESYLATE 5 MG TAB PO SCH (08:17)
[2017-07-16] MEDS: METOPROLOL TARTRATE 100 MG TAB PO SCH (08:17)
[2017-07-16] MEDS: SODIUM CHLORIDE 0.9% FLUSH 10 ML FLUSH IV FLUSH SCH ×2 (08:18→20:23)
[2017-07-16] MEDS: DOXYCYCLINE HYCLATE 100 MG CAP PO SCH ×2 (09:51→20:25)
[2017-07-16] MEDS: BUDESONIDE-FORMOTEROL 160/4.5 MCG INHALER INH SCH ×2 (09:51→20:23)
--- NOTE | 2017-07-16 12:47 | ECHRPT ---
Indication: CHF CONCLUSIONS Normal left ventricular size. Moderate concentric left ventricular hypertrophy. The left ventricular systolic function is normal with an estimated ejection fraction in the range of 55-60%. The right ventricle is moderately dilated. The right ventricular systoilc function is severely decreased. The right atrial size is moderately dilated. Tmrc-bt-dgfkhyot mitral valve regurgitation. There is trace tricuspid valve regurgitation. The estimated pulmonary arterial pressure is 62.4 mmHg. There is estimated wirkepcj-ww-mgvbmd pulmonary hypertension present There is a small pericardial effusion present. A small no hemodynamically significant echocardiographic features were observed (no pre-tamponade physiology). pleural effusion is noted. BP: / HR: Rhythm: MEASUREMENTS (Male / Female) Normal Values Technical Quality: 2D ECHO LV Diastolic Diameter PLAX 4.4 cm 4.2 - 5.9 / 3.9 - 5.3 cm LV Systolic Diameter PLAX 3.4 cm IVS Diastolic Thickness 1.4 cm 0.6 - 1.0 / 0.6 - 0.9 cm LVPW Diastolic Thickness 1.2 cm 0.6 - 1.0 / 0.6 - 0.9 cm LV Relative Wall Thickness 0.6 RV Internal Dim ED PLAX 3.3 cm LA Systolic Diameter LX 4.9 cm 3.0 - 4.0 / 2.7 - 3.8 cm M-MODE Aortic Root Diameter MM 3.6 cm AV Cusp Separation MM 2.3 cm DOPPLER Mitral E Point Velocity 80.9 cm/s TR Peak Velocity 362.0 cm/s TR Peak Gradient 52.4 mmHg Right Atrial Pressure 10.0 mmHg Pulmonary Artery Systolic Pressu 62.4 mmHg Right Ventricular Systolic Press 62.4 mmHg FINDINGS LEFT VENTRICLE Normal left ventricular size. Moderate concentric left ventricular hypertrophy. The left ventricular systolic function is normal with an estimated ejection fraction in the range of 55-60%. RIGHT VENTRICLE The right ventricle is moderately dilated. The right ventricular systoilc function is severely decreased. LEFT ATRIUM The left atrial size is normal. RIGHT ATRIUM The right atrial size is moderately dilated. ATRIAL SEPTUM Normal atrial septal thickness without atrial level shunting by limited color doppler interrogation. AORTA The aortic root and proximal ascending aorta are normal in size on limited imaging. MITRAL VALVE Wfwc-fq-buhxllqz mitral valve regurgitation. AORTIC VALVE Trileaflet aortic valve. No aortic valve stenosis or regurgitation. TRICUSPID VALVE There is trace tricuspid valve regurgitation. The estimated pulmonary arterial pressure is 62.4 mmHg. There is estimated aagrpxix-wq-ojadlo pulmonary hypertension present PULMONARY VALVE No pulmonary valve regurgitation or stenosis. VESSELS The inferior vena cava is normal in size. PERICARDIUM There is a small pericardial effusion present. A small no hemodynamically significant echocardiographic features were observed (no pre-tamponade physiology). pleural effusion is noted. Fox Mckeon MD, FACC (Electronically Signed) Final Date:16 July 2017 12:47
--- NOTE | 2017-07-16 14:37 | EKG ---
Date Performed: 07/15/2017 Time Performed: 17:28:40 PTAGE: 71 years EKG: ATRIAL FIBRILLATION PATTERN CONSISTENT WITH PULMONARY DISEASE INCOMPLETE RIGHT BUNDLE BRANC H BLOCK RIGHT VENTRICULAR HYPERTROPHY MINIMAL ST DEPRESSION ABNORMAL ECG PREVIOUS TRACING : 07/10/2015 11.22 Since the prior tracing, the atrial fibrillation is probabl y new. Although, the rhythm on the prior tracing could not be specifically determined. The rhythm was regular. The previously noted anterior T-wave changes have improved. DOCTOR: Funmilayo Rojas Interpretating Date/Time 07/16/2017 14:34:48
[2017-07-16] MEDS: FOLIC ACID 1 MG TAB PO SCH (20:23)
[2017-07-16] MEDS: ALLOPURINOL 300 MG TAB PO SCH (20:23)
[2017-07-17] VITALS (41 sets, daily range): BP systolic 90–113; BP diastolic 53–76; PULSE 71–106; RESP 11–26; TEMP 97.3–98.7; O2SAT 90–97
[2017-07-17] MEDS: CHLORHEXIDINE GLUCONATE 2 % 1 PACK (2 CLOTHS) TOP SCH (04:00)
[2017-07-17] MEDS: methylPREDNISolone SOD SUCC 40 MG/1 ML VIAL IV PUSH SCH ×3 (04:08→17:20)
[2017-07-17] MEDS: HEPARIN SODIUM - SQ 10,000 UNITS/ML VIAL SQ SCH ×3 (04:09→21:09)
[2017-07-17] MEDS: LEVOTHYROXINE SODIUM 50 MCG TAB PO SCH (04:09)
--- NOTE | 2017-07-17 06:25 | RADRPT ---
EXAM DATE/TIME: 07/17/2017 05:46 [facility] COMPARISON: CHEST SINGLE AP, July 16, 2017, 5:33. INDICATIONS : Shortness of breath. MEDICAL HISTORY : Congestive heart failure. Chronic obstructive pulmonary disease. Hypercholesterolemia. Emphysema. Dyspnea. Arthritis. Gout. Shingles, Hypertension. Thyroid disease, of synthroid SURGICAL HISTORY : Appendectomy. Infusaport ENCOUNTER: Subsequent ACUITY: 3 days PAIN SCORE: 0/10 LOCATION: Bilateral chest FINDINGS: Basilar predominant interstitial and airspace opacities persist, not significant changed. Small moder ate, bilateral pleural effusions are also suspected. No pneumothorax. Mild to moderate cardiomegaly is stable. CONCLUSION: No significant change mild to moderate failure. Mark Fuentes MD on July 17, 2017 at 6:23 Board Certified Radiologist. This report was verified electronically.
[2017-07-17 07:09] LABS: CHLORIDE 103 MEQ/L (98-107); SODIUM (NA) 138 MEQ/L (136-145)
[2017-07-17 07:15] LABS: CALCIUM 7.7 MG/DL (8.5-10.1)
[2017-07-17 07:16] LABS: ALBUMIN 1.8 GM/DL (3.4-5.0); BLOOD UREA NITROGEN 38 MG/DL (7-18); GLUCOSE,RANDOM 170 MG/DL (74-106)
[2017-07-17 07:19] LABS: ALT (GPT) 10 U/L (12-78); AST (GOT) 10 U/L (15-37); GLOMERULAR FILTRATION RATE 40 ML/MIN (>89)
[2017-07-17 07:20] LABS: TOTAL BILIRUBIN ADULT 0.6 MG/DL (0.2-1.0); TOTAL PROTEIN 5.2 GM/DL (6.4-8.2)
[2017-07-17 07:21] LABS: ALKALINE PHOSPHATASE 64 U/L (45-117)
--- NOTE | 2017-07-17 07:41 | MB ---
cc: SOLE MARTINEZ MD, JOHN DATE OF CONSULTATION 07/15/2017 REASON FOR CONSULTATION Respiratory failure and COPD. HISTORY OF PRESENT ILLNESS This is a 71-year-old white male extremely obese with a history of COPD and CHF who has been on home oxygen. He has been getting progressively short of breath and developed increasing leg and lower abdominal edema. He was brought to the emergency room with respiratory distress. The patient also has had cellulitis of his right leg and has been tried on various therapies without success. This time he had developed edema in both legs as well as the scrotal and lower abdominal area, was orthopneic and thus brought to the ER. He was placed on a BiPAP mask. The patient also had some chest wall edema. He has not been diuresing well in spite of being on diuretic therapy as an outpatient. He denied chest pains. He has had no fevers or chills. He does have a cough and wheezing and has had mild reflux. The patient has been on 2 liters of oxygen and also uses a nebulizer and has been on oral Lasix. Upon admission chest x-ray showed evidence of pulmonary edema and pleural effusions. He was hypoxic and thus was placed on a BiPAP mask and 40% FIO2. PAST MEDICAL HISTORY 1. Hypothyroidism. 2. Hypertension. 3. Extreme obesity. 4. Chronic kidney disease. 5. History of atrial fibrillation. 6. Severe COPD. 7. History of ethanolism but quit drinking 3 years ago. 8. Appendectomy. ALLERGIES 1. CEFTIN. 2. CIPRO. HABITS Prior history of smoking for over 40 years but quit many years ago. Alcohol use in the past but not recently. FAMILY HISTORY Significant for heart disease in his father. REVIEW OF SYSTEMS The patient is overweight. He has leg and arm edema. He has joint pains and back pain. He has dizzy attacks. He has postnasal drip. He has had reflux symptoms and nausea. He has some depression with anxiety. MEDICATIONS Med list includes: 1. Lasix 20 mg b.i.d. 2. Amlodipine 5 mg daily. 3. Allopurinol 300 mg daily. 4. Aspirin 81 mg a day. 5. Metoprolol 100 mg daily. 6. Levothyroxine 50 mcg daily. 7. DuoNeb q.i.d. PHYSICAL EXAMINATION GENERAL: This is an obese elderly man who is alert, pale and moderately dyspneic. He is on a BiPAP mask. He has 3+ edema of both lower extremities, cellulitis of the right leg with some excoriation of the skin with drainage from the lower leg below the knee. VITAL SIGNS: Blood pressure 90/60, pulse 64, respirations 24, temperature 97.2 HEENT: Head is normocephalic. Pupils are reactive. Tongue is moist. Nasal mucosa is edematous. Throat is clear. NECK: Supple with mild venous distention at 45 degrees. Trachea midline. No thyroid enlargement. CHEST: Decreased breath sounds at the bases; bibasilar crackles heard with wheezes throughout both lung jacobson. HEART: The heart sounds are irregular, S1 and S2. No definite murmur. No S3. ABDOMEN: The abdomen is soft and protuberant. No masses or organomegaly. Bowel sounds are active. EXTREMITIES: Edema 3+ with redness of the skin from the knee to the ankle and some excoriated areas of the skin. Reflexes are 1+. The patient does move his extremities. : There is also scrotal edema. IMPRESSION 1. CHF with acute exacerbation. 2. COPD with chronic bronchitis and emphysema. 3. Acute respiratory failure. 4. Hypertension. 5. Cellulitis of the right leg. 6. Peripheral vascular disease. 7. History of chronic kidney disease with acute kidney injury. 8. Probable obstructive sleep apnea. PLAN 1. The patient has been placed on a BiPAP mask 18/6 and FIO2 of 50%. Lasix 40 mg IV b.i.d. was started. He will be switched to a Ventimask in the morning. 2. Chest x-ray will be repeated. 3. Electrolytes and CBC will be monitored in the a.m. as well as a blood gas study. 4. Pulmonary function study will be ordered when he is clinically stable. 5. Will place on Solu-Medrol 40 mg every 8 hours. 6. Symbicort added 160/4.5 mcg, two puffs twice daily. 7. Antibiotic therapy to be started for his leg cellulitis. 8. Sputum culture will be sent if he does cough up any sputum. 9. Once he has diuresed well we could switch him to a nasal cannula, O2 at 4 liters. 10.The patient's hypertensive meds will be continued as before. I will review and follow the case with you. Thank you for this consultation. MD ANJEL Ambrose/GERRY /11:27 PM /7:27 AM
[2017-07-17] MEDS: RESP: ALBUTEROL 2.5 MG/IPRATROPIUM 0.5 MG NEB (SCH) NEB ×4 (07:52→20:48)
[2017-07-17] MEDS: amLODIPine BESYLATE 5 MG TAB PO SCH (09:00)
[2017-07-17] MEDS: METOPROLOL TARTRATE 100 MG TAB PO SCH (09:00)
[2017-07-17] MEDS: ASPIRIN 81 MG CHEW TAB CHEW SCH (09:17)
[2017-07-17] MEDS: FAMOTIDINE 20 MG TAB PO SCH ×2 (09:17→21:07)
[2017-07-17] MEDS: DOCUSATE SODIUM 50 MG/SENNA 8.6 MG TAB PO SCH ×2 (09:17→21:08)
[2017-07-17] MEDS: MULTIVITAMIN TAB PO SCH (09:17)
[2017-07-17] MEDS: DOXYCYCLINE HYCLATE 100 MG CAP PO SCH (09:17)
[2017-07-17] MEDS: FUROSEMIDE 40 MG/4 ML VIAL IV PUSH SCH ×2 (09:18→17:20)
[2017-07-17] MEDS: BUDESONIDE-FORMOTEROL 160/4.5 MCG INHALER INH SCH ×2 (09:18→21:07)
[2017-07-17] MEDS: SODIUM CHLORIDE 0.9% FLUSH 10 ML FLUSH IV FLUSH SCH ×2 (09:18→21:00)
--- NOTE | 2017-07-17 10:41 | HHI.PR ---
Subjective Remarks Patient resting in bed in no acute distress He is stable on 6 L of O2 nasal cannula Awake alert oriented, denied fever or chills however his right lower extremity felt very warm, and an per the nurse weeping, he has been on doxycycline p.o. we will switch to vancomycin, consider consulting ID Also blood pressure on the lower side 99 systolic however patient denies lightheaded or dizziness seems to be chronic at this level, also he seems to be in acute on chronic kidney failure is on diuretic needs close monitoring Objective Vitals Vital Signs Date Time Temp Pulse Resp B/P (MAP) Pulse Ox O2 Delivery O2 Flow Rate FiO2 07/17/17 07:52 93 Nasal Cannula 6.00 07/17/17 07:36 97.7 07/17/17 06:01 78 07/17/17 06:01 78 17 98/69 (79) 93 07/17/17 05:01 74 12 97/57 (70) 94 07/17/17 04:01 97.3 76 11 90/61 (71) 96 07/17/17 04:00 74 07/17/17 03:28 96 40 07/17/17 03:01 76 14 97/63 (74) 94 07/17/17 02:01 80 15 92/53 (66) 93 07/17/17 02:00 80 07/17/17 01:01 92 16 105/63 (77) 91 07/17/17 00:01 98.6 84 14 95/62 (73) 97 07/17/17 00:00 84 07/16/17 23:50 97 40 07/16/17 23:01 94 13 105/66 (79) 97 07/16/17 22:01 98 13 80/56 (64) 96 07/16/17 22:00 98 07/16/17 21:45 96 40 07/16/17 21:01 108 26 90/64 (73) 88 07/16/17 20:38 93 Nasal Cannula 6.00 07/16/17 20:01 98.8 88 18 93/65 (74) 93 07/16/17 20:00 92 07/16/17 19:01 90 25 102/66 (78) 92 07/16/17 19:00 Bi-Pap 40 07/16/17 18:01 98 26 102/69 (80) 92 07/16/17 18:00 84 07/16/17 17:01 96 25 99/61 (74) 91 07/16/17 16:01 100 20 89/67 (74) 92 07/16/17 16:01 100 20 89/67 (74) 92 07/16/17 16:00 79 07/16/17 15:01 91 24 96/64 (75) 90 07/16/17 15:01 98.3 88 24 96/64 (75) 90 07/16/17 14:01 94 30 81/63 (69) 91 07/16/17 14:00 88 07/16/17 13:01 86 20 91/65 (74) 93 07/16/17 13:01 86 20 91/65 (74) 93 07/16/17 13:00 82 19 93 07/16/17 12:01 84 18 96/63 (74) 90 07/16/17 12:01 84 18 96/63 (74) 90 07/16/17 12:00 84 20 91 07/16/17 12:00 82 07/16/17 11:30 84 20 90 I/O 07/16/17 07/16/17 07/16/17 07/17/17 07/17/17 07/17/17 07:00 15:00 23:00 07:00 15:00 23:00 Intake Total 360 ml 420 ml Output Total 450 ml 220 ml 350 ml 600 ml Balance -450 ml 140 ml 70 ml -600 ml Intake Oral 360 ml 420 ml Output Urine Total 450 ml 220 ml 350 ml 600 ml Result Diagram: 07/16/17 0214 07/17/17 0630 Objective Remarks GENERAL: Well nourished/well developed patient in no apparent distress CARDIOVASCULAR: Irregularly irregular RESPIRATORY: Bibasilar crackles. Wheezing GASTROINTESTINAL: Abdomen soft, non-tender, nondistended. Normal active bowel sounds MUSCULOSKELETAL: Extremities without clubbing, cyanosis, but with 2+ pitting edema. With venous stasis changes, positive redness weeping and warmth on the right lower extremity NEURO: Alert & Oriented x4 to person, place, time, and situation. Moves all ext x4 A/P Problem List: (1) Acute hypoxemic respiratory failure ICD Code: J96.01 - Acute respiratory failure with hypoxia (2) Acute exacerbation of CHF (congestive heart failure) ICD Code: I50.9 - Heart failure, unspecified (3) COPD with acute exacerbation ICD Code: J44.1 - Chronic obstructive pulmonary disease with (acute) exacerbation (4) Acute kidney injury superimposed on CKD ICD Code: S37.009A - Unspecified injury of unspecified kidney, initial encounter; N18.9 - Chronic kidney disease, unspecified Status: Acute (5) Cellulitis of right leg ICD Code: L03.115 - Cellulitis of right lower limb Status: Acute (6) Chronic atrial fibrillation ICD Code: I48.2 - Chronic atrial fibrillation (7) Hypothyroidism ICD Code: E03.9 - Hypothyroidism, unspecified Status: Acute (8) Hypertension ICD Code: I10 - Essential (primary) hypertension Status: Acute Assessment and Plan 07/17: Appreciate pulmonary consultation, continue O2 7 Medrol, DuoNeb, IV Lasix , strict monitoring FLAKO and weight, Change doxycycline to vancomycin for right lower extremity cellulitis and monitor improvement, consider ID consult Renal failure creatinine 1.7 continue monitoring FLAKO, consider nephrology consultation A/P: Acute exacerbation of chronic diastolic heart failure Chronic atrial fibrillation - Continue IV Lasix 40 mg every 12 hours - Continue home aspirin and metoprolol - Discontinue amlodipine due to chronic worsening pedal edema - Serial troponins are negative, 2D echo ordered Resp: Acute hypoxemic respiratory failure Acute COPD exacerbation Chronic respiratory failure on home oxygen - Scheduled bronchodilator therapy with DuoNeb every 4 hours and as needed - Start Symbicort - Consult pulmonology - Use BiPAP PRN - Incentive spirometry every hour while awake, EzPAP GI: GERD - Continue famotidine Endo: Hypothyroidism - Continue levothyroxine, check TSH Renal: Acute on Chronic kidney disease - Continue diuresis with IV Lasix - Monitor strict intake output, monitor BUN/creatinine Heme: - Monitor CBC, coags ID: Right lower extremity cellulitis - Continue doxycycline-started in emergency department, follow up on blood cultures Access - PIV Prophylaxis - GI - Famotidine - DVT - Heparin Discharge Planning Unstable for discharge yet Problem Qualifiers (1) Acute exacerbation of CHF (congestive heart failure): Qualified Codes: I50.33 - Acute on chronic diastolic (congestive) heart failure (2) Hypertension: Qualified Codes: I10 - Essential (primary) hypertension Ara Chavez MD Jul 17, 2017 10:41
[2017-07-17] MEDS ORDERED: Vancomycin Consult Pharmacy 1 EA OTHER SCH (10:45)
[2017-07-17] MEDS ORDERED: VANCOMYCIN INJ 1,700 MG in SODIUM CHLORID 0.9% 500 ML INJ 500 ML IV ONE (12:00)
--- NOTE | 2017-07-17 15:39 | HHI.PR ---
Subjective Remarks ALERT NO SOB FEELING MUCH BETTER Objective Vital Signs Date Time Temp Pulse Resp B/P (MAP) Pulse Ox O2 Delivery O2 Flow Rate FiO2 07/17/17 15:27 98.3 07/17/17 15:01 88 24 110/73 (85) 94 07/17/17 14:01 86 20 104/72 (83) 93 07/17/17 14:00 86 07/17/17 13:01 90 21 103/65 (78) 90 07/17/17 12:01 92 25 104/66 (79) 92 07/17/17 12:00 90 07/17/17 11:21 98.7 07/17/17 10:01 92 19 99/64 (76) 92 07/17/17 10:00 89 07/17/17 09:01 96 26 100/61 (74) 92 07/17/17 08:01 76 11 97/61 (73) 96 07/17/17 08:00 71 07/17/17 08:00 Nasal Cannula 6.00 40 07/17/17 07:52 93 Nasal Cannula 6.00 07/17/17 07:36 97.7 07/17/17 07:01 78 23 97/62 (74) 94 07/17/17 07:00 78 17 94 07/17/17 06:01 78 07/17/17 06:01 78 17 98/69 (79) 93 07/17/17 05:01 74 12 97/57 (70) 94 07/17/17 04:01 97.3 76 11 90/61 (71) 96 07/17/17 04:00 74 07/17/17 03:28 96 40 07/17/17 03:01 76 14 97/63 (74) 94 07/17/17 02:01 80 15 92/53 (66) 93 07/17/17 02:00 80 07/17/17 01:01 92 16 105/63 (77) 91 07/17/17 00:01 98.6 84 14 95/62 (73) 97 07/17/17 00:00 84 07/16/17 23:50 97 40 07/16/17 23:01 94 13 105/66 (79) 97 07/16/17 22:01 98 13 80/56 (64) 96 07/16/17 22:00 98 07/16/17 21:45 96 40 07/16/17 21:01 108 26 90/64 (73) 88 07/16/17 20:38 93 Nasal Cannula 6.00 07/16/17 20:01 98.8 88 18 93/65 (74) 93 07/16/17 20:00 92 07/16/17 19:01 90 25 102/66 (78) 92 07/16/17 19:00 Bi-Pap 40 07/16/17 18:01 98 26 102/69 (80) 92 07/16/17 18:00 84 07/16/17 17:01 96 25 99/61 (74) 91 07/16/17 16:01 100 20 89/67 (74) 92 07/16/17 16:01 100 20 89/67 (74) 92 07/16/17 16:00 79 I/O 07/16/17 07/16/17 07/16/17 07/17/17 07/17/17 07/17/17 07:00 15:00 23:00 07:00 15:00 23:00 Intake Total 360 ml 420 ml 720 ml Output Total 450 ml 220 ml 350 ml 600 ml Balance -450 ml 140 ml 70 ml -600 ml 720 ml Intake Oral 360 ml 420 ml 720 ml Output Urine Total 450 ml 220 ml 350 ml 600 ml # Voids 2 Result Diagram: 07/16/17 0214 07/17/17 0630 Objective Remarks GENERAL: SKIN: Warm and dry. HEAD: Atraumatic. Normocephalic. EYES: Pupils equal and round. No scleral icterus. No injection or drainage. ENT: No nasal bleeding or discharge. Mucous membranes pink and moist. NECK: Trachea midline. No JVD. CARDIOVASCULAR: Regular rate and rhythm. RESPIRATORY: No accessory muscle use. DECREASE BREATH SOUNDS AT BASIS. GASTROINTESTINAL: Abdomen soft, non-tender, nondistended. Hepatic and splenic margins not palpable. MUSCULOSKELETAL: Extremities without clubbing, cyanosis, or edema. No obvious deformities. NEUROLOGICAL: Awake and alert. No obvious cranial nerve deficits. Motor grossly within normal limits. Five out of 5 muscle strength in the arms and legs. Normal speech. PSYCHIATRIC: Appropriate mood and affect; insight and judgment normal. Assessment and Plan Assessment and Plan RESPIRATORY FAILURE COPD CHF PLAN O2 BRONCHODILATOR THERAPY THERAPY FOR CHF Bony Lovett MD Jul 17, 2017 15:38
[2017-07-17] MEDS: ALLOPURINOL 300 MG TAB PO SCH (21:08)
[2017-07-17] MEDS: FOLIC ACID 1 MG TAB PO SCH (21:09)
[2017-07-18] VITALS (32 sets, daily range): BP systolic 92–133; BP diastolic 60–93; PULSE 62–108; RESP 12–41; TEMP 97.1–97.9; O2SAT 77–95
[2017-07-18] MEDS: methylPREDNISolone SOD SUCC 40 MG/1 ML VIAL IV PUSH SCH ×3 (03:23→17:17)
[2017-07-18] MEDS: CHLORHEXIDINE GLUCONATE 2 % 1 PACK (2 CLOTHS) TOP SCH (03:23)
[2017-07-18] MEDS: HEPARIN SODIUM - SQ 10,000 UNITS/ML VIAL SQ SCH ×3 (06:15→21:37)
[2017-07-18] MEDS: LEVOTHYROXINE SODIUM 50 MCG TAB PO SCH (06:15)
[2017-07-18 07:06] LABS: AUTOMATED NEUTROPHIL # 12.3 TH/MM3 (1.8-7.7); HEMATOCRIT 43.4 % (39.0-51.0); HEMOGLOBIN 14.4 GM/DL (13.0-17.0); LYMPH % 1.9 % (9.0-44.0); LYMPHOCYTE # 0.2 TH/MM3 (1.0-4.8); MEAN CORPUSCULAR HEMOGLOBIN 30.9 PG (27.0-34.0); MEAN CORPUSCULAR HGB CONC 33.2 % (32.0-36.0); MEAN PLATELET VOLUME 7.9 FL (7.0-11.0); MONO % 1.8 % (0.0-8.0); MONOCYTE # 0.2 TH/MM3 (0-0.9); NEUT % 96.3 % (16.0-70.0); PLATELET COUNT 254 TH/MM3 (150-450); RED BLOOD COUNT 4.67 MIL/MM3 (4.50-5.90); RED CELL DISTRIBUTION WIDTH 17.9 % (11.6-17.2); WHITE BLOOD COUNT 12.7 TH/MM3 (4.0-11.0)
[2017-07-18 07:14] LABS: CHLORIDE 102 MEQ/L (98-107); SODIUM (NA) 136 MEQ/L (136-145)
[2017-07-18 07:18] LABS: BICARBONATE 27.7 MEQ/L (21.0-32.0); BLOOD UREA NITROGEN 43 MG/DL (7-18); GLUCOSE,RANDOM 130 MG/DL (74-106)
[2017-07-18 07:21] LABS: ALT (GPT) 10 U/L (12-78); AST (GOT) 11 U/L (15-37); GLOMERULAR FILTRATION RATE 40 ML/MIN (>89)
[2017-07-18 07:23] LABS: TOTAL BILIRUBIN ADULT 0.3 MG/DL (0.2-1.0); TOTAL PROTEIN 5.3 GM/DL (6.4-8.2)
[2017-07-18 07:24] LABS: ALKALINE PHOSPHATASE 59 U/L (45-117)
[2017-07-18] MEDS: RESP: ALBUTEROL 2.5 MG/IPRATROPIUM 0.5 MG NEB (SCH) NEB ×4 (07:54→21:08)
[2017-07-18] MEDS: BUDESONIDE-FORMOTEROL 160/4.5 MCG INHALER INH SCH ×2 (08:37→21:36)
[2017-07-18] MEDS: FUROSEMIDE 40 MG/4 ML VIAL IV PUSH SCH ×2 (08:38→17:19)
[2017-07-18] MEDS: MULTIVITAMIN TAB PO SCH (08:38)
[2017-07-18] MEDS: ASPIRIN 81 MG CHEW TAB CHEW SCH (08:39)
[2017-07-18] MEDS: METOPROLOL TARTRATE 100 MG TAB PO SCH (08:39)
[2017-07-18] MEDS: FAMOTIDINE 20 MG TAB PO SCH ×2 (08:39→21:37)
[2017-07-18] MEDS: SODIUM CHLORIDE 0.9% FLUSH 10 ML FLUSH IV FLUSH SCH ×2 (08:39→21:37)
[2017-07-18] MEDS: DOCUSATE SODIUM 50 MG/SENNA 8.6 MG TAB PO SCH ×2 (08:39→21:37)
[2017-07-18] MEDS: amLODIPine BESYLATE 5 MG TAB PO SCH (08:39)
--- NOTE | 2017-07-18 11:40 | HHI.PR ---
Subjective Remarks ALERT NO SOB FEELING MUCH BETTER Objective Vital Signs Date Time Temp Pulse Resp B/P (MAP) Pulse Ox O2 Delivery O2 Flow Rate FiO2 07/18/17 11:00 76 19 133/79 (97) 90 07/18/17 10:00 86 07/18/17 10:00 86 21 118/93 (101) 90 07/18/17 09:00 94 22 124/75 (91) 88 07/18/17 08:00 80 07/18/17 08:00 80 12 119/72 (88) 94 07/18/17 07:58 94 Nasal Cannula 5.00 07/18/17 07:00 97.5 82 13 107/71 (83) 94 07/18/17 07:00 96 Room Air 5.00 07/18/17 06:00 82 18 116/74 (88) 92 07/18/17 06:00 74 07/18/17 05:00 86 16 116/71 (86) 92 07/18/17 04:08 80 07/18/17 04:00 97.1 88 19 129/80 (96) 92 07/18/17 03:42 94 20 114/74 (87) 87 07/18/17 03:24 92 22 109/75 (86) 92 07/18/17 02:00 84 07/18/17 02:00 96 28 102/68 (79) 90 07/18/17 01:00 104 27 106/74 (85) 91 07/18/17 00:01 97.9 103 24 108/67 (81) 93 07/18/17 00:00 108 07/18/17 00:00 07/17/17 23:00 106 26 108/67 (81) 92 07/17/17 22:59 106 24 97/67 (77) 97 07/17/17 22:03 97 07/17/17 21:14 92 24 99/65 (76) 92 07/17/17 20:48 93 Nasal Cannula 5.00 07/17/17 20:00 100 07/17/17 19:16 88 22 104/69 (81) 95 07/17/17 19:15 96 Nasal Cannula 4.00 07/17/17 19:01 97.5 90 22 106/67 (80) 94 07/17/17 18:01 90 07/17/17 18:01 90 19 113/76 (88) 91 07/17/17 18:00 94 07/17/17 17:01 92 07/17/17 17:01 92 20 102/76 (85) 92 07/17/17 16:01 84 07/17/17 16:01 84 18 113/71 (85) 91 07/17/17 16:00 88 07/17/17 15:27 98.3 07/17/17 15:01 88 24 110/73 (85) 94 07/17/17 15:01 88 24 110/73 (85) 94 07/17/17 14:01 86 20 104/72 (83) 93 07/17/17 14:00 86 07/17/17 13:01 90 21 103/65 (78) 90 07/17/17 12:01 92 25 104/66 (79) 92 07/17/17 12:00 90 I/O 07/17/17 07/17/17 07/17/17 07/18/17 07/18/17 07/18/17 06:59 14:59 22:59 06:59 14:59 22:59 Intake Total 720 ml 240 ml Output Total 600 ml 1060 ml 500 ml Balance -600 ml 720 ml -820 ml -500 ml Intake Oral 720 ml 240 ml Output Urine Total 600 ml 1060 ml 500 ml # Voids 2 Result Diagram: 07/18/1755807/18/17 0559 Objective Remarks GENERAL: SKIN: Warm and dry. HEAD: Atraumatic. Normocephalic. EYES: Pupils equal and round. No scleral icterus. No injection or drainage. ENT: No nasal bleeding or discharge. Mucous membranes pink and moist. NECK: Trachea midline. No JVD. CARDIOVASCULAR: Regular rate and rhythm. RESPIRATORY: No accessory muscle use. DECREASE BREATH SOUNDS AT BASIS. GASTROINTESTINAL: Abdomen soft, non-tender, nondistended. Hepatic and splenic margins not palpable. MUSCULOSKELETAL: Extremities without clubbing, cyanosis, or edema. No obvious deformities. NEUROLOGICAL: Awake and alert. No obvious cranial nerve deficits. Motor grossly within normal limits. Five out of 5 muscle strength in the arms and legs. Normal speech. PSYCHIATRIC: Appropriate mood and affect; insight and judgment normal. Assessment and Plan Assessment and Plan RESPIRATORY FAILURE COPD CHF PLAN O2 BRONCHODILATOR THERAPY THERAPY FOR CHF Bony Lovett MD Jul 18, 2017 11:40
[2017-07-18] MEDS ORDERED: ACETAMINOPHEN/HYDROcodone 325 MG/7.5 MG TAB PO PRN (12:45)
[2017-07-18] MEDS ORDERED: ACETAMINOPHEN/HYDROcodone 325 MG/5 MG TAB PO PRN (12:45)
[2017-07-18] MEDS: MORPHINE SULFATE 4 MG/ML INJ IV PUSH PRN ×2 (12:54→18:27)
[2017-07-18] MEDS: VANCOMYCIN INJ 1,750 MG in SODIUM CHLORID 0.9% 500 ML INJ 500 ML IV SCH (12:58)
--- NOTE | 2017-07-18 13:35 | HHI.PR ---
Subjective Remarks Patient having worsening scrotum swelling today feeling heaviness Creatinine still not improving along with BMP increased from 842-1368 Will increase his Lasix to 60 mg twice a day may need to add metolazone , switch to more potent diuretic versus drip I will consult nephrology Objective Vitals Vital Signs Date Time Temp Pulse Resp B/P (MAP) Pulse Ox O2 Delivery O2 Flow Rate FiO2 07/18/17 13:00 68 07/18/17 12:00 97.4 70 25 111/74 (86) 95 07/18/17 12:00 70 07/18/17 11:00 76 19 133/79 (97) 90 07/18/17 10:00 86 07/18/17 10:00 86 21 118/93 (101) 90 07/18/17 09:00 94 22 124/75 (91) 88 07/18/17 08:00 80 07/18/17 08:00 80 12 119/72 (88) 94 07/18/17 07:58 94 Nasal Cannula 5.00 07/18/17 07:00 97.5 82 13 107/71 (83) 94 07/18/17 07:00 96 Room Air 5.00 07/18/17 06:00 82 18 116/74 (88) 92 07/18/17 06:00 74 07/18/17 05:00 86 16 116/71 (86) 92 07/18/17 04:08 80 07/18/17 04:00 97.1 88 19 129/80 (96) 92 07/18/17 03:42 94 20 114/74 (87) 87 07/18/17 03:24 92 22 109/75 (86) 92 07/18/17 02:00 84 07/18/17 02:00 96 28 102/68 (79) 90 07/18/17 01:00 104 27 106/74 (85) 91 07/18/17 00:01 97.9 103 24 108/67 (81) 93 07/18/17 00:00 108 07/18/17 00:00 07/17/17 23:00 106 26 108/67 (81) 92 07/17/17 22:59 106 24 97/67 (77) 97 07/17/17 22:03 97 07/17/17 21:14 92 24 99/65 (76) 92 07/17/17 20:48 93 Nasal Cannula 5.00 07/17/17 20:00 100 07/17/17 19:16 88 22 104/69 (81) 95 07/17/17 19:15 96 Nasal Cannula 4.00 07/17/17 19:01 97.5 90 22 106/67 (80) 94 07/17/17 18:01 90 07/17/17 18:01 90 19 113/76 (88) 91 07/17/17 18:00 94 07/17/17 17:01 92 07/17/17 17:01 92 20 102/76 (85) 92 07/17/17 16:01 84 07/17/17 16:01 84 18 113/71 (85) 91 07/17/17 16:00 88 07/17/17 15:27 98.3 07/17/17 15:01 88 24 110/73 (85) 94 07/17/17 15:01 88 24 110/73 (85) 94 07/17/17 14:01 86 20 104/72 (83) 93 07/17/17 14:00 86 I/O 07/17/17 07/17/17 07/17/17 07/18/17 07/18/17 07/18/17 07:00 15:00 23:00 07:00 15:00 23:00 Intake Total 720 ml 240 ml Output Total 600 ml 1060 ml 500 ml Balance -600 ml 720 ml -820 ml -500 ml Intake Oral 720 ml 240 ml Output Urine Total 600 ml 1060 ml 500 ml # Voids 2 Result Diagram: 07/18/17 0559 07/18/17 0559 Objective Remarks GENERAL: Well nourished/well developed patient in no apparent distress CARDIOVASCULAR: Irregularly irregular RESPIRATORY: Bibasilar crackles. Wheezing GASTROINTESTINAL: Abdomen soft, non-tender, nondistended. Normal active bowel sounds MUSCULOSKELETAL: Extremities without clubbing, cyanosis, but with 2+ pitting edema. With venous stasis changes, positive redness weeping and warmth on the right lower extremity NEURO: Alert & Oriented x4 to person, place, time, and situation. Moves all ext x4 : Scrotal edema A/P Problem List: (1) Acute hypoxemic respiratory failure ICD Code: J96.01 - Acute respiratory failure with hypoxia (2) Acute exacerbation of CHF (congestive heart failure) ICD Code: I50.9 - Heart failure, unspecified (3) COPD with acute exacerbation ICD Code: J44.1 - Chronic obstructive pulmonary disease with (acute) exacerbation (4) Acute kidney injury superimposed on CKD ICD Code: S37.009A - Unspecified injury of unspecified kidney, initial encounter; N18.9 - Chronic kidney disease, unspecified Status: Acute (5) Cellulitis of right leg ICD Code: L03.115 - Cellulitis of right lower limb Status: Acute (6) Chronic atrial fibrillation ICD Code: I48.2 - Chronic atrial fibrillation (7) Hypothyroidism ICD Code: E03.9 - Hypothyroidism, unspecified Status: Acute (8) Hypertension ICD Code: I10 - Essential (primary) hypertension Status: Acute Assessment and Plan 07/17: Appreciate pulmonary consultation, continue O2 7 Medrol, DuoNeb, IV Lasix , strict monitoring FLAKO and weight, Change doxycycline to vancomycin for right lower extremity cellulitis and monitor improvement, consider ID consult Renal failure creatinine 1.7 continue monitoring FLAKO, consider nephrology consultation 07/18: Worsening scrotal edema with Creatinine still not improving along with BMP increased from 842-1368 Will increase his Lasix to 60 mg twice a day may need to add metolazone , switch to more potent diuretic versus drip I will consult nephrology, Continue monitoring I&O strictly with daily weighting, BMP and BNP A/P: Acute exacerbation of chronic diastolic heart failure Chronic atrial fibrillation - Continue IV Lasix 60 mg every 12 hours - Continue home aspirin and metoprolol - Discontinue amlodipine due to chronic worsening pedal edema - Serial troponins are negative, 2D echo ordered Resp: Acute hypoxemic respiratory failure Acute COPD exacerbation Chronic respiratory failure on home oxygen - Scheduled bronchodilator therapy with DuoNeb every 4 hours and as needed - Start Symbicort - Consult pulmonology - Use BiPAP PRN - Incentive spirometry every hour while awake, EzPAP GI: GERD - Continue famotidine Endo: Hypothyroidism - Continue levothyroxine, check TSH Renal: Acute on Chronic kidney disease - Continue diuresis with IV Lasix - Monitor strict intake output, monitor BUN/creatinine Heme: - Monitor CBC, coags ID: Right lower extremity cellulitis - Continue doxycycline-started in emergency department, follow up on blood cultures Access - PIV Prophylaxis - GI - Famotidine - DVT - Heparin Discharge Planning Unstable for discharge yet Problem Qualifiers (1) Acute exacerbation of CHF (congestive heart failure): Qualified Codes: I50.33 - Acute on chronic diastolic (congestive) heart failure (2) Hypertension: Qualified Codes: I10 - Essential (primary) hypertension Ara Chavez MD Jul 18, 2017 13:35
[2017-07-18] MEDS: FOLIC ACID 1 MG TAB PO SCH (21:37)
[2017-07-18] MEDS: ALLOPURINOL 300 MG TAB PO SCH (21:37)
[2017-07-19] VITALS (26 sets, daily range): BP systolic 84–114; BP diastolic 60–74; PULSE 56–94; RESP 6–41; TEMP 97.1–98.7; O2SAT 84–95
[2017-07-19] MEDS: methylPREDNISolone SOD SUCC 40 MG/1 ML VIAL IV PUSH SCH ×3 (02:54→16:32)
[2017-07-19] MEDS: CHLORHEXIDINE GLUCONATE 2 % 1 PACK (2 CLOTHS) TOP SCH (03:27)
[2017-07-19] MEDS: LEVOTHYROXINE SODIUM 50 MCG TAB PO SCH (06:12)
[2017-07-19] MEDS: HEPARIN SODIUM - SQ 10,000 UNITS/ML VIAL SQ SCH ×3 (06:13→22:56)
[2017-07-19] MEDS: RESP: ALBUTEROL 2.5 MG/IPRATROPIUM 0.5 MG NEB (SCH) NEB ×4 (07:26→20:44)
[2017-07-19] MEDS: FAMOTIDINE 20 MG TAB PO SCH ×2 (09:00→22:54)
[2017-07-19] MEDS: METOPROLOL TARTRATE 100 MG TAB PO SCH (09:00)
[2017-07-19] MEDS: ASPIRIN 81 MG CHEW TAB CHEW SCH (09:00)
[2017-07-19] MEDS: MULTIVITAMIN TAB PO SCH (09:00)
[2017-07-19] MEDS: BUDESONIDE-FORMOTEROL 160/4.5 MCG INHALER INH SCH (09:00)
[2017-07-19] MEDS: amLODIPine BESYLATE 5 MG TAB PO SCH (09:00)
[2017-07-19] MEDS: FUROSEMIDE 40 MG/4 ML VIAL IV PUSH SCH ×2 (09:00→16:32)
[2017-07-19] MEDS: DOCUSATE SODIUM 50 MG/SENNA 8.6 MG TAB PO SCH ×2 (09:00→22:55)
[2017-07-19] MEDS: SODIUM CHLORIDE 0.9% FLUSH 10 ML FLUSH IV FLUSH SCH ×2 (09:00→22:56)
[2017-07-19] MEDS: MORPHINE SULFATE 4 MG/ML INJ IV PUSH PRN (09:36)
[2017-07-19] MEDS: VANCOMYCIN INJ 1,750 MG in SODIUM CHLORID 0.9% 500 ML INJ 500 ML IV SCH (11:55)
[2017-07-19] MEDS ORDERED: PILL SPLITTER OTHER PRN (14:15)
--- NOTE | 2017-07-19 15:16 | HHI.PR ---
Subjective Remarks Patient is a 71-year-old male with past medical history significant for congestive heart failure, dyslipidemia, chronic A. fib, COPD, hypertension, hypothyroidism, chronic kidney disease, history of alcoholic liver disease who presented to the emergency department yesterday with shortness of breath and increasing bilateral pedal edema. He also gave history of orthopnea. Uses 2 L of home oxygen on arrival to the ED his oxygen saturation was in mid 70s. Patient was immediately placed on BiPAP with 50% oxygen, with improvement in oxygen saturation. ABG on 50% BIPAP ABG pH 7.49 PCO2 35 PaO2 120. Chest x-ray showed evidence of congestive heart failure. Chemistry shows a BNP of 842, creatinine 1.6. Serial troponins have been negative. Patient was admitted to the ICU with admitting diagnosis of CHF exacerbation and COPD exacerbation. Patient was placed on IV Lasix 40 mg every 12, IV Solu-Medrol 40 mg every 6 hours DuoNeb every 4 hours scheduled and as needed and antibiotics with doxycycline I evaluated the patient in the ICU today. He tolerated BiPAP well currently on nasal cannula with good oxygen saturation. Mild tachypnea but subjectively feels improved. Urine output 700 mL since coming to the ICU. Chest x-ray on my review shows slight improvement in congestive heart failure 2-24 Patient resting in bed in no acute distress He is stable on 6 L of O2 nasal cannula Awake alert oriented, denied fever or chills however his right lower extremity felt very warm, and an per the nurse weeping, he has been on doxycycline p.o. we will switch to vancomycin, consider consulting ID Also blood pressure on the lower side 99 systolic however patient denies lightheaded or dizziness seems to be chronic at this level, also he seems to be in acute on chronic kidney failure is on diuretic needs close monitoring 2-25 Patient having worsening scrotum swelling today feeling heaviness Creatinine still not improving along with BMP increased from 842-1368 Will increase his Lasix to 60 mg twice a day may need to add metolazone , switch to more potent diuretic versus drip I will consult nephrology 2- Will increase medications to help with diuresis will ADD METOLAZONE await nephrology consultation Still complaining of severe swelling in the penis and scrotal area We'll get stat labs as well as a.m. labs PT and OT Objective Vitals Vital Signs Date Time Temp Pulse Resp B/P (MAP) Pulse Ox O2 Delivery O2 Flow Rate FiO2 07/19/17 14:20 86 23 114/65 (81) 90 07/19/17 14:00 78 23 104/63 (77) 93 07/19/17 14:00 78 07/19/17 13:00 80 07/19/17 13:00 80 23 91 07/19/17 12:00 97.8 80 6 95 07/19/17 12:00 80 07/19/17 11:00 84 18 90 07/19/17 11:00 84 07/19/17 10:00 86 07/19/17 10:00 86 24 101/71 (81) 90 07/19/17 09:00 82 07/19/17 09:00 88 41 99/64 (76) 92 07/19/17 08:00 97.5 88 29 91/65 (74) 85 07/19/17 08:00 94 07/19/17 07:52 93 Nasal Cannula 6.00 07/19/17 07:28 90 Venturi Mask 9.00 07/19/17 07:00 90 Nasal Cannula 5.00 07/19/17 07:00 80 34 86/60 (69) 84 07/19/17 07:00 74 07/19/17 06:19 68 07/19/17 06:01 98.5 68 15 105/74 (84) 91 07/19/17 05:01 58 11 105/74 (84) 91 07/19/17 04:01 60 11 95/61 (72) 93 07/19/17 04:00 66 07/19/17 03:01 56 10 84/60 (68) 93 07/19/17 02:01 64 20 97/60 (72) 91 07/19/17 02:00 62 07/19/17 01:01 66 20 109/72 (84) 91 07/19/17 00:01 98.7 66 8 95/65 (75) 90 07/19/17 00:00 74 07/18/17 23:01 62 12 97/60 (72) 89 07/18/17 22:30 93 Venturi Mask 6.00 50 07/18/17 22:01 72 15 99/77 (84) 91 07/18/17 22:00 68 2/25/18 21:09 93 Nasal Cannula 5.00 07/18/17 21:01 82 41 104/64 (77) 77 07/18/17 20:01 68 19 107/70 (82) 88 07/18/17 20:00 90 07/18/17 19:23 91 Nasal Cannula 4.00 07/18/17 19:01 97.5 68 22 101/82 (88) 88 07/18/17 19:00 16 07/18/17 18:00 70 27 103/75 (84) 89 07/18/17 18:00 66 07/18/17 17:00 68 18 92/62 (72) 87 07/18/17 16:00 97.6 70 21 105/78 (87) 88 07/18/17 16:00 70 I/O 07/18/17 07/18/17 07/18/17 07/19/17 07/19/17 07/19/17 07:00 15:00 23:00 07:00 15:00 23:00 Intake Total 960 ml Output Total 500 ml 700 ml 800 ml Balance -500 ml 260 ml -800 ml Intake Oral 960 ml Output Urine Total 500 ml 700 ml 800 ml # Bowel Movements 0 Result Diagram: 07/18/17 0559 07/18/17 0559 Other Results Laboratory Tests Test 07/17/17 06:30 07/17/17 13:21 07/18/17 05:59 07/18/17 13:10 Blood Urea Nitrogen 38 MG/DL 43 MG/DL Creatinine 1.70 MG/DL 1.70 MG/DL Random Glucose 170 MG/DL 130 MG/DL Total Protein 5.2 GM/DL 5.3 GM/DL Albumin 1.8 GM/DL 2.0 GM/DL Calcium Level 7.7 MG/DL 8.0 MG/DL Alkaline Phosphatase 64 U/L 59 U/L Aspartate Amino Transf (AST/SGOT) 10 U/L 11 U/L Alanine Aminotransferase (ALT/SGPT) 10 U/L 10 U/L Total Bilirubin 0.6 MG/DL 0.3 MG/DL Sodium Level 138 MEQ/L 136 MEQ/L Potassium Level 4.2 MEQ/L 4.3 MEQ/L Chloride Level 103 MEQ/L 102 MEQ/L Carbon Dioxide Level 27.0 MEQ/L 27.7 MEQ/L Anion Gap 8 MEQ/L 6 MEQ/L Estimat Glomerular Filtration Rate 40 ML/MIN 40 ML/MIN Erythrocyte Sedimentation Rate 6 mm/hr C-Reactive Protein 1.84 MG/DL White Blood Count 12.7 TH/MM3 Red Blood Count 4.67 MIL/MM3 Hemoglobin 14.4 GM/DL Hematocrit 43.4 % Mean Corpuscular Volume 93.0 FL Mean Corpuscular Hemoglobin 30.9 PG Mean Corpuscular Hemoglobin Concent 33.2 % Red Cell Distribution Width 17.9 % Platelet Count 254 TH/MM3 Mean Platelet Volume 7.9 FL Neutrophils (%) (Auto) 96.3 % Lymphocytes (%) (Auto) 1.9 % Monocytes (%) (Auto) 1.8 % Eosinophils (%) (Auto) 0.0 % Basophils (%) (Auto) 0.0 % Neutrophils # (Auto) 12.3 TH/MM3 Lymphocytes # (Auto) 0.2 TH/MM3 Monocytes # (Auto) 0.2 TH/MM3 Eosinophils # (Auto) 0.0 TH/MM3 Basophils # (Auto) 0.0 TH/MM3 CBC Comment DIFF FINAL Differential Comment B-Type Natriuretic Peptide 1368 PG/ML Test 07/19/17 04:38 B-Type Natriuretic Peptide 1888 PG/ML Imaging Last Impressions Chest X-Ray 07/17/17 0600 Signed Impressions: Service Date/Time: Monday, July 17, 2017 05:46 - CONCLUSION: No significant change mild to moderate failure. Mark Fuentes MD Objective Remarks GENERAL: Awake alert and oriented talkative and cooperative SKIN: Warm and dry. HEAD: Atraumatic. Normocephalic. EYES: Pupils equal and round. No scleral icterus. No injection or drainage. Extraocular muscles intact ENT: No nasal bleeding or discharge. Mucous membranes pink and moist. TONGUE IS MIDLINE NECK: Trachea midline. No JVD. Supple CARDIOVASCULAR: Regular rate and rhythm. S1 and S2 no S3 or S4 RESPIRATORY: No accessory muscle use. Clear to auscultation. Breath sounds equal bilaterally. Decreased breath sounds bilaterally GASTROINTESTINAL: Abdomen soft, non-tender, nondistended. Hepatic and splenic margins not palpable. Obese Severe swelling in the penis and scrotal region MUSCULOSKELETAL: Extremities without clubbing, cyanosis, +2-3 bilateral lower extremity edema. No obvious deformities. NEUROLOGICAL: Awake and alert. No obvious cranial nerve deficits. Motor grossly within normal limits. 4 out of 5 muscle strength in the arms and legs. Normal speech. PSYCHIATRIC: Appropriate mood and affect; insight and judgment normal. Medications and IVs Current Medications Sodium Chloride (NS Flush) 2 ml UNSCH PRN IVF FLUSH AFTER USING IV ACCESS; Start 07/15/17 at 17:00; Stop 07/18/17 at 12:37; Status DC Furosemide (Lasix Inj) 20 mg ONCE ONCE IVP Last administered on 07/15/17at 17: 42; Start 07/15/17 at 17:00; Stop 07/15/17 at 17:01; Status DC Allopurinol (Zyloprim) 150 mg HS PO Last administered on 07/18/17at 21:37; Start 07/15/17 at 21:00 Amlodipine Besylate (Norvasc) 5 mg DAILY PO Last administered on 07/18/17at 08: 39; Start 07/16/17 at 09:00 Aspirin (Aspirin Chew) 81 mg DAILY CHEW Last administered on 07/19/17at 09:00; Start 07/16/17 at 09:00 Folic Acid (Folate) 1 mg HS PO Last administered on 07/18/17at 21:37; Start at 21:00 Furosemide (Lasix) 20 mg BID PO ; Start 07/15/17 at 21:00; Stop 07/15/17 at 21: 00; Status DC Levothyroxine Sodium (Synthroid) 50 mcg DAILY@0600 PO Last administered on 07/19at 06:12; Start 07/16/17 at 06:00 Metoprolol Tartrate (Lopressor) 100 mg DAILY PO Last administered on 07/18/17at 08:39; Start 07/16/17 at 09:00 Multivitamins (Theragran) 1 tab DAILY PO Last administered on 07/19/17at 09:00; Start 07/16/17 at 09:00 Sodium Chloride (NS Flush) 2 ml UNSCH PRN IV FLUSH FLUSH AFTER USING IV ACCESS ; Start 07/15/17 at 20:15 Sodium Chloride (NS Flush) 2 ml BID IV FLUSH Last administered on 07/19/17at 09: 00; Start 07/15/17 at 21:00 Acetaminophen (Tylenol) 650 mg Q6HR PRN PO PAIN 1-10 AND/OR FEVER >101F; Start 07/16/17 at 00:00 Famotidine (Pepcid) 20 mg Q12HR PO Last administered on 07/19/17at 09:00; Start 07/15/17 at 21:00; Stop 07/19/17 at 14:07; Status DC Ondansetron HCl (Zofran Inj) 4 mg Q6HR PRN IV PUSH NAUSEA OR VOMITING; Start at 21:00 Temazepam (Restoril) 15 mg HS PRN PO INSOMNIA; Start 07/15/17 at 21:00 Albuterol/ Ipratropium (Duoneb Neb) 1 ampule Q4HR NEB INH Last administered on 07/16/17at 03:01; Start 07/16/17 at 00:00; Stop 07/16/17 at 08:00; Status DC Albuterol/ Ipratropium (Duoneb Neb) 1 ampule Q2HR NEB PRN INH WHEEZING; Start 07/15/17 at 22:00 Heparin Sodium (Porcine) (Heparin Inj) 5,000 units Q8HR SQ Last administered on 07/19/17at 11:57; Start 07/15/17 at 22:00 Miscellaneous Information 1 Q361D XX ; Start 07/15/17 at 20:15 Chlorhexidine Gluconate (Chlorhexidine 2% Cloth) 3 pack Taper DAILY@04 TOP Last administered on 07/19/17at 03:27; Start 07/16/17 at 04:00; Stop 07/12/18 at 03:59 Chlorhexidine Gluconate (Chlorhexidine 2% Cloth) 3 pack UNSCH PRN TOP HYGIENIC CARE; Start 07/15/17 at 20:15 Senna/Docusate Sodium (Sharon-Colace) 1 tab BID PO Last administered on at 21:37; Start 07/15/17 at 21:00 Magnesium Hydroxide (Milk Of Magnesia Liq) 30 ml Q12HR PRN PO Mild constipation Last administered on 07/17/17at 09:18; Start 07/15/17 at 21:00 Sennosides (Senokot) 17.2 mg Q12HR PRN PO Moderate constipation; Start at 21:00 Bisacodyl (Dulcolax Supp) 10 mg DAILY PRN RECTAL SEVERE CONSITIPATION; Start at 21:00 Lactulose (Lactulose Liq) 30 ml DAILY PRN PO SEVERE CONSITIPATION Last administered on 07/18/17at 08:37; Start 07/15/17 at 21:00 Methylprednisolone Sodium Succinate (SoluMEDROL INJ) 40 mg Q6HR IV PUSH Last administered on 07/16/17at 17:55; Start 07/15/17 at 00:00; Stop 07/16/17 at 19:07 ; Status DC Doxycycline Hyclate (Vibramycin) 100 mg BID PO Last administered on 07/17/17at 09:17; Start 07/15/17 at 21:00; Stop 07/17/17 at 10:35; Status DC Albuterol/ Ipratropium (Duoneb Neb) 1 ampule QID NEB NEB Last administered on 07/19/17at 14:39; Start 07/16/17 at 08:00 Furosemide (Lasix Inj) 40 mg BID@,18 IV PUSH Last administered on 07/18/17at 08:38; Start 07/16/17 at 09:00; Stop 07/18/17 at 14:32; Status DC Miscellaneous (Pill Splitter) 1 ea UNSCH PRN OTHER SEE LABEL COMMENTS; Start at 21:00 Budesonide/ Formoterol Fumarate (Symbicort 160-4.5 Mcg Inh) 2 puff Q12HR INH Last administered on 07/19/17at 09:00; Start 07/16/17 at 09:00 Methylprednisolone Sodium Succinate (SoluMEDROL INJ) 40 mg Q8H IV PUSH Last administered on 07/19/17at 09:32; Start 07/17/17 at 02:00 Pharmacy Profile Note 0 ml @ 0 mls/hr UNSCH OTHER ; Start 07/17/17 at 10:45 Vancomycin HCl 1700 mg/Sodium Chloride 517 ml @ 257.5 mls/ hr ONCE ONCE IV Last administered on 07/17/17at 12:04; Start 07/17/17 at 12:00; Stop 07/17/17 at 14:00; Status DC Vancomycin HCl 1750 mg/Sodium Chloride 517.5 ml @ 250 mls/hr Q24H IV Last administered on 07/19/17at 11:55; Start 07/18/17 at 12:00 Miscellaneous Information SPECIFIC LAB TO BE . ONCE ONCE .XX ; Start 07/20 at 11:45; Stop 07/20/17 at 11:46 Acetaminophen/ Hydrocodone Bitart ([place] 5-325 Mg) 1 tab Q4H PRN PO PAIN SCALE 3 TO 5; Start 07/18/17 at 12:45 Acetaminophen/ Hydrocodone Bitart ([place] 7.5-325 Mg) 1 tab Q4H PRN PO PAIN SCALE 6 TO 10; Start 07/18/17 at 12:45 Morphine Sulfate (Morphine Inj) 2 mg Q4H PRN IV PUSH Pain 3-5; if unable to take PO Last administered on 07/19/17at 09:36; Start 07/18/17 at 12:45 Morphine Sulfate (Morphine Inj) 4 mg Q4H PRN IV PUSH Pain 6-10;if unable to take PO Last administered on 07/18/17at 18:27; Start 07/18/17 at 12:45 Furosemide (Lasix Inj) 60 mg BID@18 IV PUSH Last administered on 07/19/17at 09:00; Start 07/18/17 at 18:00 Famotidine (Pepcid) 10 mg Q12HR PO ; Start 07/19/17 at 21:00 Miscellaneous (Pill Splitter) 1 ea UNSCH PRN OTHER SEE LABEL COMMENTS; Start at 14:15 A/P Problem List: (1) Acute hypoxemic respiratory failure ICD Code: J96.01 - Acute respiratory failure with hypoxia (2) Acute exacerbation of CHF (congestive heart failure) ICD Code: I50.9 - Heart failure, unspecified (3) COPD with acute exacerbation ICD Code: J44.1 - Chronic obstructive pulmonary disease with (acute) exacerbation (4) Acute kidney injury superimposed on CKD ICD Code: S37.009A - Unspecified injury of unspecified kidney, initial encounter; N18.9 - Chronic kidney disease, unspecified Status: Acute (5) Cellulitis of right leg ICD Code: L03.115 - Cellulitis of right lower limb Status: Acute (6) Chronic atrial fibrillation ICD Code: I48.2 - Chronic atrial fibrillation (7) Hypothyroidism ICD Code: E03.9 - Hypothyroidism, unspecified Status: Acute (8) Hypertension ICD Code: I10 - Essential (primary) hypertension Status: Acute Assessment and Plan Assessment and Plan 07/17: Appreciate pulmonary consultation, continue O2 7 Medrol, DuoNeb, IV Lasix , strict monitoring FLAKO and weight, Change doxycycline to vancomycin for right lower extremity cellulitis and monitor improvement, consider ID consult Renal failure creatinine 1.7 continue monitoring FLAKO, consider nephrology consultation 07/18: Worsening scrotal edema with Creatinine still not improving along with BMP increased from 842-1368 Will increase his Lasix to 60 mg twice a day may need to add metolazone , switch to more potent diuretic versus drip I will consult nephrology, Continue monitoring I&O strictly with daily weighting, BMP and BNP 08-16 ADD METALOZONE A/P: Acute exacerbation of chronic diastolic heart failure Chronic atrial fibrillation - Continue IV Lasix 60 mg every 12 hours - Continue home aspirin and metoprolol - Discontinue amlodipine due to chronic worsening pedal edema - Serial troponins are negative, 2D echo ordered ADD METALOZONE Resp: Acute hypoxemic respiratory failure Acute COPD exacerbation Chronic respiratory failure on home oxygen - Scheduled bronchodilator therapy with DuoNeb every 4 hours and as needed - Start Symbicort - Consult pulmonology - Use BiPAP PRN - Incentive spirometry every hour while awake, EzPAP GI: GERD - Continue famotidine Endo: Hypothyroidism - Continue levothyroxine, check TSH Renal: Acute on Chronic kidney disease - Continue diuresis with IV Lasix - Monitor strict intake output, monitor BUN/creatinine Heme: - Monitor CBC, coags ID: Right lower extremity cellulitis - Continue doxycycline-started in emergency department, follow up on blood cultures Access - PIV Scrotal swelling and penile swelling continue to actively diuresed Prophylaxis - GI - Famotidine - DVT - Heparin Discharge Planning Unstable for discharge yet Discharge Planning Pending better diuresed Problem Qualifiers (1) Acute exacerbation of CHF (congestive heart failure): Qualified Codes: I50.33 - Acute on chronic diastolic (congestive) heart failure (2) Hypertension: Qualified Codes: I10 - Essential (primary) hypertension Nathan Najera DO Jul 19, 2017 15:16
[2017-07-19 16:27] LABS: AUTOMATED NEUTROPHIL # 8.9 TH/MM3 (1.8-7.7); HEMOGLOBIN 14.8 GM/DL (13.0-17.0); LYMPH % 2.1 % (9.0-44.0); LYMPHOCYTE # 0.2 TH/MM3 (1.0-4.8); MEAN CELL VOLUME 93.7 FL (80.0-100.0); MEAN CORPUSCULAR HEMOGLOBIN 29.6 PG (27.0-34.0); MEAN CORPUSCULAR HGB CONC 31.6 % (32.0-36.0); MEAN PLATELET VOLUME 8.2 FL (7.0-11.0); MONO % 0.8 % (0.0-8.0); MONOCYTE # 0.1 TH/MM3 (0-0.9); NEUT % 97.1 % (16.0-70.0); PLATELET COUNT 251 TH/MM3 (150-450); RED BLOOD COUNT 5.02 MIL/MM3 (4.50-5.90); RED CELL DISTRIBUTION WIDTH 17.4 % (11.6-17.2); WHITE BLOOD COUNT 9.2 TH/MM3 (4.0-11.0)
[2017-07-19] MEDS: METOLAZONE 5 MG TAB PO SCH ×2 (16:31→22:53)
[2017-07-19 16:36] LABS: CHLORIDE 100 MEQ/L (98-107); SODIUM (NA) 136 MEQ/L (136-145)
[2017-07-19 16:39] LABS: CALCIUM 7.8 MG/DL (8.5-10.1)
[2017-07-19 16:40] LABS: ALBUMIN 2.1 GM/DL (3.4-5.0); BICARBONATE 26.7 MEQ/L (21.0-32.0); BLOOD UREA NITROGEN 53 MG/DL (7-18); GLUCOSE,RANDOM 189 MG/DL (74-106); MAGNESIUM 2.4 MG/DL (1.5-2.5)
[2017-07-19 16:43] LABS: ALT (GPT) 15 U/L (12-78); AST (GOT) 12 U/L (15-37); GLOMERULAR FILTRATION RATE 40 ML/MIN (>89); PHOSPHORUS 3.2 MG/DL (2.5-4.9)
[2017-07-19 16:44] LABS: TOTAL BILIRUBIN ADULT 0.4 MG/DL (0.2-1.0)
[2017-07-19 16:45] LABS: TOTAL PROTEIN 5.4 GM/DL (6.4-8.2)
[2017-07-19 16:46] LABS: ALKALINE PHOSPHATASE 57 U/L (45-117)
--- NOTE | 2017-07-19 18:17 | HHI.PR ---
Subjective Remarks Alert and off BiPAP. on Zaroxolyn and Bumex Objective Vital Signs Date Time Temp Pulse Resp B/P (MAP) Pulse Ox O2 Delivery O2 Flow Rate FiO2 07/19/17 16:00 97.4 84 22 114/66 (82) 92 07/19/17 14:20 86 23 114/65 (81) 90 07/19/17 14:00 78 23 104/63 (77) 93 07/19/17 14:00 78 07/19/17 13:00 80 07/19/17 13:00 80 23 91 07/19/17 12:00 97.8 80 6 95 07/19/17 12:00 80 07/19/17 11:00 84 18 90 07/19/17 11:00 84 07/19/17 10:00 86 07/19/17 10:00 86 24 101/71 (81) 90 07/19/17 09:00 82 07/19/17 09:00 88 41 99/64 (76) 92 07/19/17 08:00 97.5 88 29 91/65 (74) 85 07/19/17 08:00 94 07/19/17 07:52 93 Nasal Cannula 6.00 07/19/17 07:28 90 Venturi Mask 9.00 07/19/17 07:00 90 Nasal Cannula 5.00 07/19/17 07:00 80 34 86/60 (69) 84 07/19/17 07:00 74 07/19/17 06:19 68 07/19/17 06:01 98.5 68 15 105/74 (84) 91 07/19/17 05:01 58 11 105/74 (84) 91 07/19/17 04:01 60 11 95/61 (72) 93 07/19/17 04:00 66 07/19/17 03:01 56 10 84/60 (68) 93 07/19/17 02:01 64 20 97/60 (72) 91 07/19/17 02:00 62 07/19/17 01:01 66 20 109/72 (84) 91 07/19/17 00:01 98.7 66 8 95/65 (75) 90 07/19/17 00:00 74 07/18/17 23:01 62 12 97/60 (72) 89 07/18/17 22:30 93 Venturi Mask 6.00 50 07/18/17 22:01 72 15 99/77 (84) 91 07/18/17 22:00 68 07/18/17 21:09 93 Nasal Cannula 5.00 07/18/17 21:01 82 41 104/64 (77) 77 07/18/17 20:01 68 19 107/70 (82) 88 07/18/17 20:00 90 07/18/17 19:23 91 Nasal Cannula 4.00 07/18/17 19:01 97.5 68 22 101/82 (88) 88 07/18/17 19:00 16 I/O 07/18/17 07/18/17 07/18/17 07/19/17 07/19/17 07/19/17 07:00 15:00 23:00 07:00 15:00 23:00 Intake Total 960 ml 1400 ml Output Total 500 ml 700 ml 800 ml 600 ml Balance -500 ml 260 ml -800 ml 800 ml Intake Oral 960 ml 900 ml IV Total 500 ml Output Urine Total 500 ml 700 ml 800 ml 600 ml # Voids 1 # Bowel Movements 0 1 Result Diagram: 07/19/17 1515 07/19/17 1530 Objective Remarks GENERAL: This is an obese elderly man who is alert, pale and not dyspneic. He has 2 + edema of both lower extremities, cellulitis of the right leg with some excoriation of the skin HEENT: Head is normocephalic. Pupils are reactive. Tongue is moist. Nasal mucosa is edematous. Throat is clear. NECK: Supple with mild venous distention at 45 degrees. Trachea midline. No thyroid enlargement. CHEST: Decreased breath sounds at the bases; bibasilar crackles heard with occ wheeze over both lung jacobson. HEART: The heart sounds are irregular, S1 and S2. No definite murmur. No S3. ABDOMEN: The abdomen is soft and protuberant. No masses or organomegaly. Bowel sounds are active. Scrotal edema EXTREMITIES: Edema 2 + with redness of the skin from the knee to the ankle and some excoriated areas of the skin. Reflexes are 1+. The patient does move his extremities. Assessment and Plan Assessment and Plan IMPRESSION 1. CHF with acute exacerbation. 2. COPD with chronic bronchitis and emphysema. 3. Acute respiratory failure. 4. Hypertension. 5. Cellulitis of the right leg. 6. Peripheral vascular disease. 7. History of chronic kidney disease with acute kidney injury. 8. Probable obstructive sleep apnea. PLan : 1. Wean o2 to 2 L. 2. D/C BiPAP. 3. Continue diuretic per Renal. 4. D/C Solumedrol . 5. Add Prednisone 20 mgm bid and taper. 6. BMP in am. 7. Chest Xray in am Brittni Randhawa MD Jul 19, 2017 18:17
--- NOTE | 2017-07-19 19:30 | HHI.PR ---
Subjective Remarks came to see patient but he follows with Dr. Webber established CKD patient He was notified. Objective Vital Signs Date Time Temp Pulse Resp B/P (MAP) Pulse Ox O2 Delivery O2 Flow Rate FiO2 07/19/17 16:00 97.4 84 22 114/66 (82) 92 07/19/17 14:20 86 23 114/65 (81) 90 07/19/17 14:00 78 23 104/63 (77) 93 07/19/17 14:00 78 07/19/17 13:00 80 07/19/17 13:00 80 23 91 07/19/17 12:00 97.8 80 6 95 07/19/17 12:00 80 07/19/17 11:00 84 18 90 07/19/17 11:00 84 07/19/17 10:00 86 07/19/17 10:00 86 24 101/71 (81) 90 07/19/17 09:00 82 07/19/17 09:00 88 41 99/64 (76) 92 07/19/17 08:00 97.5 88 29 91/65 (74) 85 07/19/17 08:00 94 07/19/17 07:52 93 Nasal Cannula 6.00 07/19/17 07:28 90 Venturi Mask 9.00 07/19/17 07:00 90 Nasal Cannula 5.00 07/19/17 07:00 80 34 86/60 (69) 84 07/19/17 07:00 74 07/19/17 06:19 68 07/19/17 06:01 98.5 68 15 105/74 (84) 91 07/19/17 05:01 58 11 105/74 (84) 91 07/19/17 04:01 60 11 95/61 (72) 93 07/19/17 04:00 66 07/19/17 03:01 56 10 84/60 (68) 93 07/19/17 02:01 64 20 97/60 (72) 91 07/19/17 02:00 62 07/19/17 01:01 66 20 109/72 (84) 91 07/19/17 00:01 98.7 66 8 95/65 (75) 90 07/19/17 00:00 74 07/18/17 23:01 62 12 97/60 (72) 89 07/18/17 22:30 93 Venturi Mask 6.00 50 07/18/17 22:01 72 15 99/77 (84) 91 07/18/17 22:00 68 07/18/17 21:09 93 Nasal Cannula 5.00 07/18/17 21:01 82 41 104/64 (77) 77 07/18/17 20:01 68 19 107/70 (82) 88 07/18/17 20:00 90 I/O 07/18/17 07/18/17 07/18/17 07/19/17 07/19/17 07/19/17 07:00 15:00 23:00 07:00 15:00 23:00 Intake Total 960 ml 1400 ml Output Total 500 ml 700 ml 800 ml 600 ml Balance -500 ml 260 ml -800 ml 800 ml Intake Oral 960 ml 900 ml IV Total 500 ml Output Urine Total 500 ml 700 ml 800 ml 600 ml # Voids 1 # Bowel Movements 0 1 Result Diagram: 07/19/17 1515 07/19/17 1530 Chitra Ulloa MD Jul 19, 2017 19:30
[2017-07-19] MEDS: ALLOPURINOL 300 MG TAB PO SCH (22:55)
[2017-07-19] MEDS: FOLIC ACID 1 MG TAB PO SCH (22:56)
[2017-07-19] MEDS: predniSONE 20 MG TAB PO SCH (23:02)
[2017-07-20] VITALS (12 sets, daily range): BP systolic 109–132; BP diastolic 61–79; PULSE 72–89; RESP 18–20; TEMP 96.1–98; O2SAT 92–100
[2017-07-20] MEDS: BUDESONIDE-FORMOTEROL 160/4.5 MCG INHALER INH SCH ×3 (00:19→22:06)
[2017-07-20] MEDS: CHLORHEXIDINE GLUCONATE 2 % 1 PACK (2 CLOTHS) TOP SCH (02:45)
[2017-07-20] MEDS: MORPHINE SULFATE 4 MG/ML INJ IV PUSH PRN ×2 (02:50→21:58)
--- NOTE | 2017-07-20 06:26 | RADRPT ---
EXAM DATE/TIME: 07/20/2017 06:11 [facility] COMPARISON: CHEST SINGLE AP, July 17, 2017, 5:46. INDICATIONS : Shortness of breath. MEDICAL HISTORY : Congestive heart failure. Chronic obstructive pulmonary disease. Emphysema. SURGICAL HISTORY : Infusaport. ENCOUNTER: Subsequent ACUITY: 4 - 6 days PAIN SCORE: Non-responsive. LOCATION: Bilateral chest FINDINGS: Mild diffuse interstitial prominence with bilateral lower lobe airspace disease and likely trace bila teral pleural effusions. Cardiac silhouette is markedly enlarged. Central pulmonary vascularity is in distinct. Remainder of the exam is unchanged. CONCLUSION: 1. Cardiomegaly with stable pulmonary edema pattern. 2. No significant interval change Chris Guzman MD on July 20, 2017 at 6:25 Board Certified Radiologist. This report was verified electronically.
[2017-07-20] MEDS: HEPARIN SODIUM - SQ 10,000 UNITS/ML VIAL SQ SCH ×3 (06:48→22:00)
[2017-07-20] MEDS: LEVOTHYROXINE SODIUM 50 MCG TAB PO SCH (06:48)
[2017-07-20] MEDS: RESP: ALBUTEROL 2.5 MG/IPRATROPIUM 0.5 MG NEB (SCH) NEB ×3 (07:37→20:20)
[2017-07-20 07:45] LABS: CHLORIDE 97 MEQ/L (98-107); SODIUM (NA) 135 MEQ/L (136-145)
[2017-07-20 07:52] LABS: ALBUMIN 2.2 GM/DL (3.4-5.0); BICARBONATE 32.7 MEQ/L (21.0-32.0); BLOOD UREA NITROGEN 58 MG/DL (7-18); CALCIUM 8.1 MG/DL (8.5-10.1); GLUCOSE,RANDOM 138 MG/DL (74-106); MAGNESIUM 2.5 MG/DL (1.5-2.5)
[2017-07-20 07:53] LABS: AUTOMATED NEUTROPHIL # 7.4 TH/MM3 (1.8-7.7); BASOPHIL % 0.1 % (0.0-2.0); HEMATOCRIT 47.9 % (39.0-51.0); HEMOGLOBIN 15.7 GM/DL (13.0-17.0); LYMPH % 2.1 % (9.0-44.0); LYMPHOCYTE # 0.2 TH/MM3 (1.0-4.8); MEAN CELL VOLUME 94.1 FL (80.0-100.0); MEAN CORPUSCULAR HGB CONC 32.9 % (32.0-36.0); MEAN PLATELET VOLUME 7.9 FL (7.0-11.0); MONO % 1.6 % (0.0-8.0); MONOCYTE # 0.1 TH/MM3 (0-0.9); NEUT % 96.2 % (16.0-70.0); PLATELET COUNT 232 TH/MM3 (150-450); RED BLOOD COUNT 5.09 MIL/MM3 (4.50-5.90); RED CELL DISTRIBUTION WIDTH 17.9 % (11.6-17.2); WHITE BLOOD COUNT 7.8 TH/MM3 (4.0-11.0)
[2017-07-20 07:55] LABS: ALT (GPT) 18 U/L (12-78); AST (GOT) 13 U/L (15-37); PHOSPHORUS 3.7 MG/DL (2.5-4.9)
[2017-07-20 07:56] LABS: TOTAL BILIRUBIN ADULT 0.5 MG/DL (0.2-1.0); TOTAL PROTEIN 5.3 GM/DL (6.4-8.2)
[2017-07-20 07:57] LABS: GLOMERULAR FILTRATION RATE 35 ML/MIN (>89)
[2017-07-20 07:58] LABS: ALKALINE PHOSPHATASE 55 U/L (45-117)
[2017-07-20] MEDS: METOPROLOL TARTRATE 100 MG TAB PO SCH (08:47)
[2017-07-20] MEDS: predniSONE 20 MG TAB PO SCH (08:47)
[2017-07-20] MEDS: METOLAZONE 5 MG TAB PO SCH ×2 (08:48→22:04)
[2017-07-20] MEDS: DOCUSATE SODIUM 50 MG/SENNA 8.6 MG TAB PO SCH ×2 (08:48→22:24)
[2017-07-20] MEDS: FAMOTIDINE 20 MG TAB PO SCH ×2 (08:48→22:02)
[2017-07-20] MEDS: MULTIVITAMIN TAB PO SCH (08:49)
[2017-07-20] MEDS: ASPIRIN 81 MG CHEW TAB CHEW SCH (08:49)
[2017-07-20] MEDS: FUROSEMIDE 40 MG/4 ML VIAL IV PUSH SCH ×2 (08:50→17:44)
[2017-07-20] MEDS: SODIUM CHLORIDE 0.9% FLUSH 10 ML FLUSH IV FLUSH SCH ×2 (08:51→22:05)
--- NOTE | 2017-07-20 09:04 | PD.CONS ---
HPI Service Nephrology Consult Requested By Reason for Consult Acute on CKD Primary Care Physician Bill Culp MD History of Present Illness This is a 71 y/o who came to ER for evaluation of lower extremity and scrotal edema. He has a hx of COPD on chronic oxygen therapy, CHF, Hyperlipidemia, A fib, and CKD. We follow him in our CKD clinic. In September of 2016 his creatinine was 1.3, GFR 58, consistent with CKD 3. This admission his creatinine was 1.6 that increased and is 1.9 today. He is making urine, has extensive fluid overload with significant scrotal edema. He reports he is able to urinate. There is not a urine available for analysis. We were consulted to assist. He is on lasix 20 mg BID at home, here he is on 60 mg IV BID. He is a full code. (Lesia Alvares) Review of Systems Constitutional: COMPLAINS OF: Fatigue, Weight gain, DENIES: Change in appetite Respiratory: COMPLAINS OF: Cough, Shortness of breath, DENIES: Sputum production Cardiovascular: COMPLAINS OF: Dyspnea on Exertion, Lower Extremity Edema, Orthopnea, DENIES: Chest pain Gastrointestinal: DENIES: Diarrhea Genitourinary: COMPLAINS OF: Testicular Swelling Neurologic: DENIES: Abnormal gait (Lesia Alvares) Past Family Social History Allergies: Coded Allergies: cefuroxime (Unverified Allergy, Intermediate, hives, 07/15/17) ciprofloxacin (Unverified Allergy, Intermediate, HIVES, 07/15/17) Past Medical History CKD 3, Baseline creatinine 1.3, GFR 58 from September 2016 COPD O2 dependent CHF Chronic A fib Obesity Hypertension Hypothyroidism Hyperlipidemia CHF, EF 55-60% History of alcohol abuse quit in 2014 Past Surgical History Appendectomy Reported Medications Levothyroxine (Levothyroxine Sodium) 50 Mcg Tab 50 Mcg PO DAILY Metoprolol Tartrate 100 Mg Tab 100 Mg PO DAILY Furosemide 20 Mg Tab 20 Mg PO BID Amlodipine (Amlodipine Besylate) 5 Mg Tab 5 Mg PO DAILY Folic Acid 1 Mg Tablet 1 Mg PO HS Allopurinol 300 Mg Tab 150 Mg PO HS Aspirin 81 Mg Chew 81 Mg CHEW DAILY Once Daily (Multivitamin) 1 Each Tablet 1 Tab PO DAILY Duoneb (Ipratropium-Albuterol Neb) 0.5-2.5 Mg/3 Ml Neb 1 Nebule INH Q6HR NEB PRN Oxygen (O2) Device Liter BK.CANULA CONTINUOUS Oxygen Concentrator Portable Gaseous 2 L/min via Nasal Canula Continuous For 99 months Active Ordered Medications Current Medications Medications (Trade) Dose Ordered Sig/Jose Route Start Time Stop Time Status Last Admin (Zyloprim) 150 mg HS PO 07/15/17 21:00 2 22:55 (Norvasc) 5 mg DAILY PO 07/16/17 09:00 07/18/17 08:39 (Aspirin Chew) 81 mg DAILY CHEW 07/16/17 09:00 07/19/17 09:00 (Folate) 1 mg HS PO 07/15/17 21:00 07/19/17 22:56 (Synthroid) 50 mcg DAILY@0600 PO 07/16/17 06:00 07/20/17 06:48 (Lopressor) 100 mg DAILY PO 07/16/17 09:00 07/18/17 08:39 (Theragran) 1 tab DAILY PO 07/16/17 09:00 07/19/17 09:00 (NS Flush) 2 ml UNSCH PRN IV FLUSH 07/15/17 20:15 (NS Flush) 2 ml BID IV FLUSH 07/15/17 21:00 07/19/17 22:56 (Tylenol) 650 mg Q6HR PRN PO 07/16/17 00:00 (Zofran Inj) 4 mg Q6HR PRN IV PUSH 07/15/17 21:00 (Restoril) 15 mg HS PRN PO 07/15/17 21:00 (Duoneb Neb) 1 ampule Q2HR NEB PRN INH 07/15/17 22:00 (Heparin Inj) 5,000 units Q8HR SQ 07/15/17 22:00 07/20/17 06:48 Miscellaneous Information 1 Q361D XX 07/15/17 20:15 (Chlorhexidine 2% Cloth) 3 pack Taper DAILY@04 TOP 07/16/17 04:00 07/12/18 03:59 07/19/17 03:27 (Chlorhexidine 2% Cloth) 3 pack UNSCH PRN TOP 07/15/17 20:15 (Sharon-Colace) 1 tab BID PO 07/15/17 21:00 07/19/17 22:55 (Milk Of Magnesia Liq) 30 ml Q12HR PRN PO 07/15/17 21:00 07/17/17 09:18 (Senokot) 17.2 mg Q12HR PRN PO 07/15/17 21:00 (Dulcolax Supp) 10 mg DAILY PRN RECTAL 07/15/17 21:00 (Lactulose Liq) 30 ml DAILY PRN PO 07/15/17 21:00 07/18/17 08:37 (Pill Splitter) 1 ea UNSCH PRN OTHER 07/15/17 21:00 (Symbicort 160-4.5 Mcg Inh) 2 puff Q12HR INH 07/16/17 09:00 07/20/17 00:19 Pharmacy Profile Note 0 ml @ 0 mls/hr UNSCH OTHER 07/17/17 10:45 Vancomycin HCl 1750 mg/Sodium Chloride 517.5 ml @ 250 mls/hr Q24H IV 07/18/17 12:00 07/19/17 11:55 Miscellaneous Information SPECIFIC LAB TO BE DANIEL... 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 WIN[employer]) Physical Exam Vital Signs Vital Signs Date Time Temp Pulse Resp B/P (MAP) Pulse Ox O2 Delivery O2 Flow Rate FiO2 07/20/17 08:08 92 Nasal Cannula 3.50 07/20/17 07:38 98 Nasal Cannula 6.00 07/20/17 04:00 97.0 73 20 123/61 (81) 96 07/20/17 00:00 97.3 89 20 112/69 (83) 93 07/19/17 22:00 89 07/19/17 20:45 91 Nasal Cannula 5.00 07/19/17 20:00 97.1 91 20 109/68 (82) 90 07/19/17 16:00 97.4 84 22 114/66 (82) 92 07/19/17 14:20 86 23 114/65 (81) 90 07/19/17 14:00 78 23 104/63 (77) 93 07/19/17 14:00 78 07/19/17 13:00 80 07/19/17 13:00 80 23 91 07/19/17 12:00 97.8 80 6 95 07/19/17 12:00 80 07/19/17 11:00 84 18 90 07/19/17 11:00 84 07/19/17 10:00 86 07/19/17 10:00 86 24 101/71 (81) 90 07/19/17 09:00 82 07/19/17 09:00 88 41 99/64 (76) 92 Physical Exam This is an elderly obese white male, awake, on oxygen via NC Lungs with bilateral rales S1S2, no rubs, gallops, or murmurs GI: NT/ND, normal bowel sounds. Ext: 3-4+edema bilateral lower extremities up to thighs; significant scrotal and penile edema; Distal pulses adequal distally Laboratory Laboratory Tests Test 07/19/17 15:15 07/19/17 15:30 07/20/17 06:50 White Blood Count 9.2 7.8 Red Blood Count 5.02 5.09 Hemoglobin 14.8 15.7 Hematocrit 47.0 47.9 Mean Corpuscular Volume 93.7 94.1 Mean Corpuscular Hemoglobin 29.6 31.0 Mean Corpuscular Hemoglobin Concent 31.6 32.9 Red Cell Distribution Width 17.4 17.9 Platelet Count 251 232 Mean Platelet Volume 8.2 7.9 Neutrophils (%) (Auto) 97.1 96.2 Lymphocytes (%) (Auto) 2.1 2.1 Monocytes (%) (Auto) 0.8 1.6 Eosinophils (%) (Auto) 0.0 0.0 Basophils (%) (Auto) 0.0 0.1 Neutrophils # (Auto) 8.9 7.4 Lymphocytes # (Auto) 0.2 0.2 Monocytes # (Auto) 0.1 0.1 Eosinophils # (Auto) 0.0 0.0 Basophils # (Auto) 0.0 0.0 CBC Comment DIFF FINAL AUTO DIFF Differential Comment AUTO DIFF CONFIRMED Blood Urea Nitrogen 53 58 Creatinine 1.70 1.90 Random Glucose 189 138 Total Protein 5.4 5.3 Albumin 2.1 2.2 Calcium Level 7.8 8.1 Phosphorus Level 3.2 3.7 Magnesium Level 2.4 2.5 Alkaline Phosphatase 57 55 Aspartate Amino Transf (AST/SGOT) 12 13 Alanine Aminotransferase (ALT/SGPT) 15 18 Total Bilirubin 0.4 0.5 Sodium Level 136 135 Potassium Level 4.4 4.3 Chloride Level 100 97 Carbon Dioxide Level 26.7 32.7 Anion Gap 9 5 Estimat Glomerular Filtration Rate 40 35 Platelet Estimate NORMAL Platelet Morphology Comment NORMAL Thyroid Stimulating Hormone 3rd Gen 2.370 Date/Time Source Procedure Growth Status 07/16/17 09:45 Blood Peripheral Aerobic Blood Culture - Preliminary NO GROWTH IN 3 DAYS Resulted 07/16/17 09:45 Blood Peripheral Anaerobic Blood Culture - Preliminary NO GROWTH IN 3 DAYS Resulted 07/15/17 17:00 Nasal Washing Influenza Types A,B Antigen (CORRINE) - Final NEGATIVE FOR FLU A AND B ANTIGEN.... Complete (Lesia Alvares) Result Diagram: 07/20/17 0650 07/20/17 0650 Imaging Last 72 hours Impressions Chest X-Ray 07/20/17 0600 Signed Impressions: Service Date/Time: Thursday, July 20, 2017 06:11 - CONCLUSION: 1. Cardiomegaly with stable pulmonary edema pattern. 2. No significant interval change Chris Guzman MD (Lesia Alvares) Assessment and Plan Problem List: (1) Acute kidney injury superimposed on CKD ICD Codes: S37.009A - Unspecified injury of unspecified kidney, initial encounter; N18.9 - Chronic kidney disease, unspecified Status: Acute Plan: Baseline creainine 1.3 ELOINA from CHF exacerbation, increased renal vein pressure. Also was hypotensive on arrival, may have sufferered hypoperfusion injury Needs diuresis, on Lasix 60 mg IV BID (increase to 80 mg); also on Zaroxolyn He is non oliguric Obtain renal US and UA Repeat labs in AM Avoid nephrotoxic agents, renally dose when appropriate, on vancomycin currently. (2) Hypertension ICD Codes: I10 - Essential (primary) hypertension Status: Acute Plan: Was hypotensive until 07/18, BP improved Stop Amlodipine due to lower extremity edema On metoprolol, furosemide, and Zaroxolyn. Continue and titrate as needed. (3) Acute exacerbation of CHF (congestive heart failure) ICD Codes: I50.9 - Heart failure, unspecified Plan: Fluid removal as tolerated Diuresis as above Low salt diet (4) COPD with acute exacerbation ICD Codes: J44.1 - Chronic obstructive pulmonary disease with (acute) exacerbation Plan: On prednisone, oxygen, nebs Serum CO2 is elevated (5) Cellulitis of right leg ICD Codes: L03.115 - Cellulitis of right lower limb Status: Acute Plan: Appears chronic, On vancomycin IV No signs of infection, afebrile, no leukocytosis (Lesia Alvares) Assessment and Plan patient was seen and examined. Agree with above assessment and plan. He appears to have pulmonary hypertension. Acute on CKD. Massive fluid overload. Continue IV diuretics. Also on Metolazone. Monitor urine output and renal function, also monitor daily weights. Obtain UA. (Amando Webber MD) Problem Qualifiers (1) Hypertension: Qualified Codes: I10 - Essential (primary) hypertension (2) Acute exacerbation of CHF (congestive heart failure): Qualified Codes: I50.33 - Acute on chronic diastolic (congestive) heart failure Lesia Alvares Jul 20, 2017 09:04 Amando Webber MD Jul 20, 2017 09:33
[2017-07-20 10:01] LABS: FREE T4 0.95 NG/DL (0.76-1.46)
--- NOTE | 2017-07-20 10:10 | RADRPT ---
EXAM DATE/TIME: 07/20/2017 14:27 [facility] COMPARISON: US KIDNEY/RENAL/BLADDER, May 05, 2012, 15:58. INDICATIONS : Abnormal labs. MEDICAL HISTORY : Hypercholesterolemia. Hyperthyroidism. Osteoarthritis. COPD. Dyspnea. GERD. Renal disease. Renal fail ure. Musculoskeletal disorders. Arthritis. Gout. Cirrhosis. CHF. Shingles. SURGICAL HISTORY : Appendectomy. ENCOUNTER: Initial ACUITY: 1 day PAIN SCORE: 1/10 LOCATION: Bilateral flank MEASUREMENTS: RIGHT KIDNEY: 9.9 x 5.4 x 5.9 cm LEFT KIDNEY: 10.9 x 5.3 x 5.8 cm FINDINGS: RIGHT KIDNEY: Renal cortex is normal in thickness and echotexture. No hydronephrosis, stone, or mass. LEFT KIDNEY: Renal cortex is normal in thickness and echotexture. No hydronephrosis, stone, or mass. BLADDER: Within normal limits given the degree of distension. CONCLUSION: 1. Unremarkable ultrasound examination of the kidneys. 2. Echogenic liver compatible with fatty infiltration or hepatocellular disease. Jason Batista MD on July 20, 2017 at 10:08 Board Certified Radiologist. This report was verified electronically.
--- NOTE | 2017-07-20 11:13 | HHI.PR ---
Subjective Remarks Nursing denies any deterioration since last night. Patient thinks that his scrotal swelling is just a little bit better compared to yesterday. His says that his abdominal distention is much better than yesterday. Patient denies having any significant shortness of breath upon rest. Says he thinks he wears anywhere from 2-3 L of oxygen at home prescribed, nursing however does report that he is on 5 L at 100% at this time. Objective Vital Signs Date Time Temp Pulse Resp B/P (MAP) Pulse Ox O2 Delivery O2 Flow Rate FiO2 07/20/17 08:08 92 Nasal Cannula 3.50 07/20/17 07:38 98 Nasal Cannula 6.00 07/20/17 04:00 97.0 73 20 123/61 (81) 96 07/20/17 00:00 97.3 89 20 112/69 (83) 93 07/19/17 22:00 89 07/19/17 20:45 91 Nasal Cannula 5.00 07/19/17 20:00 97.1 91 20 109/68 (82) 90 07/19/17 16:00 97.4 84 22 114/66 (82) 92 07/19/17 14:20 86 23 114/65 (81) 90 07/19/17 14:00 78 23 104/63 (77) 93 07/19/17 14:00 78 07/19/17 13:00 80 07/19/17 13:00 80 23 91 07/19/17 12:00 97.8 80 6 95 07/19/17 12:00 80 I/O 07/19/17 07/19/17 07/19/17 07/20/17 07/20/17 07/20/17 07:00 15:00 23:00 07:00 15:00 23:00 Intake Total 2800 ml Output Total 800 ml 1100 ml 2000 ml Balance -800 ml 1700 ml -2000 ml Intake Oral 2300 ml IV Total 500 ml Output Urine Total 800 ml 1100 ml 2000 ml # Voids 1 3 # Bowel Movements 1 Result Diagram: 07/20/17 0650 07/20/17 0650 Objective Remarks Coarse breath sounds bilaterally with good aeration, no labored breathing Has moderate to severe scrotal and penile swelling with minimal pain, no stuart erythema A/P Assessment and Plan 07/17: Appreciate pulmonary consultation, continue O2 7 Medrol, DuoNeb, IV Lasix , strict monitoring FLAKO and weight, Change doxycycline to vancomycin for right lower extremity cellulitis and monitor improvement, consider ID consult Renal failure creatinine 1.7 continue monitoring FLAKO, consider nephrology consultation 07/18: Worsening scrotal edema with Creatinine still not improving along with BMP increased from 842-1368 Will increase his Lasix to 60 mg twice a day may need to add metolazone , switch to more potent diuretic versus drip I will consult nephrology, Continue monitoring I&O strictly with daily weighting, BMP and BNP 08-16 ADD METALOZONE 07/20: stable genital swelling; nephrology following likely from right sided heart failure as echo showing right sided severe systolic dysfunction A/P: Acute exacerbation of chronic diastolic heart failure with right sided systolic dysfunction - Continue lasix and metalozaone per nephro Chronic atrial fibrillation - - Continue home aspirin and metoprolol Acute on chronic hypoxemic respiratory failure - Acute COPD exacerbation and pulm edema as above, wean to 2 L - Scheduled bronchodilator therapy with DuoNeb every 4 hours and as needed - Symbicort and prednisone per pulmonology - Use BiPAP PRN - Incentive spirometry every hour while awake, EzPAP Hypothyroidism - Continue levothyroxine, check TSH Right lower extremity cellulitis - Continue doxycycline-started in emergency department, follow up on blood cultures Albino Kelly MD Jul 20, 2017 11:13
[2017-07-20] MEDS ORDERED: PHARMACY ORDERED LAB ONE (11:45)
[2017-07-20] MEDS: VANCOMYCIN INJ 1,750 MG in SODIUM CHLORID 0.9% 500 ML INJ 500 ML IV SCH (12:26)
[2017-07-20 16:12] LABS: HEMOGLOBIN A1C 5.2 % (4.3-6.0)
--- NOTE | 2017-07-20 19:22 | HHI.PR ---
Subjective Remarks Alert and on O2 N/C 3 L on Lasix and KCL. C/O Scrotal swelling. Objective Vital Signs Date Time Temp Pulse Resp B/P (MAP) Pulse Ox O2 Delivery O2 Flow Rate FiO2 07/20/17 16:00 98.0 77 18 122/70 (87) 100 07/20/17 14:10 93 Nasal Cannula 4.50 07/20/17 12:00 98.0 74 18 110/71 (84) 100 07/20/17 08:20 87 07/20/17 08:08 92 Nasal Cannula 3.50 07/20/17 08:00 97.6 88 18 132/72 (92) 100 07/20/17 07:38 98 Nasal Cannula 6.00 07/20/17 04:00 97.0 73 20 123/61 (81) 96 07/20/17 00:00 97.3 89 20 112/69 (83) 93 07/19/17 22:00 89 07/19/17 20:45 91 Nasal Cannula 5.00 07/19/17 20:00 97.1 91 20 109/68 (82) 90 I/O 07/19/17 07/19/17 07/19/17 07/20/17 07/20/17 07/20/17 07:00 15:00 23:00 07:00 15:00 23:00 Intake Total 2800 ml 500 ml 600 ml Output Total 800 ml 1100 ml 2000 ml Balance -800 ml 1700 ml -2000 ml 500 ml 600 ml Intake Oral 2300 ml 600 ml IV Total 500 ml 500 ml Output Urine Total 800 ml 1100 ml 2000 ml # Voids 1 3 5 # Bowel Movements 1 Result Diagram: 07/20/17 0650 07/20/17 0650 Objective Remarks GENERAL: This is an obese elderly man who is alert, pale and not dyspneic. He has 1 + edema of both lower extremities, cellulitis of the right leg +. HEENT: Head is normocephalic. Pupils are reactive. Throat is clear. NECK: Supple with mild venous distention at 45 degrees. Trachea midline. No thyroid enlargement. CHEST: Decreased breath sounds at the bases; bibasilar crackles heard with occ wheeze over both lung jacobson. HEART: The heart sounds are irregular, S1 and S2. No definite murmur. No S3. ABDOMEN: The abdomen is soft and protuberant. No masses or organomegaly. Bowel sounds are active. Scrotal edema ++ EXTREMITIES: Edema 2 + with redness of the skin at ankle and some excoriated areas of the skin. Reflexes are 1+. The patient does move his extremities well. Assessment and Plan Assessment and Plan IMPRESSION 1. CHF with acute exacerbation. 2. COPD with chronic bronchitis and emphysema. 3. Acute respiratory failure. 4. Hypertension. 5. Cellulitis of the right leg. 6. Peripheral vascular disease. 7. History of chronic kidney disease with acute kidney injury. 8. Probable obstructive sleep apnea. PLan : 1. Wean o2 to 3 L. 2. Up in room. 3. Continue diuretic per Renal. 4. D/C Solumedrol . 5. Taper Prednisone to 30 mgm daily 6. CBC BMP in am. 7. PFT with Bronchodilator Brittni Randhawa MD Jul 20, 2017 19:22
[2017-07-20] MEDS: ALLOPURINOL 300 MG TAB PO SCH (22:03)
[2017-07-20] MEDS: FOLIC ACID 1 MG TAB PO SCH (22:04)
[2017-07-20 22:39] LABS: BILIRUBIN, URINE NEG (NEG); BLOOD, URINE NEG (NEG); GLUCOSE,URINE NEG (NEG); KETONE, URINE NEG (NEG); NITRITE,URINE NEG (NEG); PH, URINE 5.5 (5.0-8.5); URINE LEUKOCYTE ESTERASE NEG (NEG)
[2017-07-20 22:50] LABS: URINE COLOR YELLOW (YELLW/STRAW)
[2017-07-20 22:51] LABS: MUCUS URINE OCC /lpf (OCC); SQUAMOUS EPITHELIAL CELL URINE 0-5 /hpf (0-5)
[2017-07-21] VITALS (9 sets, daily range): BP systolic 96–116; BP diastolic 60–77; PULSE 68–78; RESP 16–18; TEMP 95.7–97.6; O2SAT 90–98
[2017-07-21] MEDS: CHLORHEXIDINE GLUCONATE 2 % 1 PACK (2 CLOTHS) TOP SCH (04:00)
[2017-07-21] MEDS: LEVOTHYROXINE SODIUM 50 MCG TAB PO SCH (06:05)
[2017-07-21] MEDS: HEPARIN SODIUM - SQ 10,000 UNITS/ML VIAL SQ SCH ×3 (06:06→21:24)
[2017-07-21] MEDS: RESP: ALBUTEROL 2.5 MG/IPRATROPIUM 0.5 MG NEB (SCH) NEB ×3 (07:42→22:28)
[2017-07-21] MEDS: DOCUSATE SODIUM 50 MG/SENNA 8.6 MG TAB PO SCH ×2 (08:21→21:21)
[2017-07-21] MEDS: METOPROLOL TARTRATE 100 MG TAB PO SCH (08:21)
[2017-07-21] MEDS: MULTIVITAMIN TAB PO SCH (08:21)
[2017-07-21] MEDS: METOLAZONE 5 MG TAB PO SCH ×2 (08:22→21:21)
[2017-07-21] MEDS: ASPIRIN 81 MG CHEW TAB CHEW SCH (08:22)
[2017-07-21] MEDS: predniSONE 10 MG TAB PO SCH (08:23)
[2017-07-21] MEDS: FUROSEMIDE 40 MG/4 ML VIAL IV PUSH SCH ×2 (08:26→17:18)
[2017-07-21] MEDS: BUDESONIDE-FORMOTEROL 160/4.5 MCG INHALER INH SCH ×2 (08:26→21:24)
[2017-07-21] MEDS: SODIUM CHLORIDE 0.9% FLUSH 10 ML FLUSH IV FLUSH SCH ×2 (08:26→21:19)
[2017-07-21] MEDS: FAMOTIDINE 20 MG TAB PO SCH ×2 (08:26→21:20)
[2017-07-21 08:51] LABS: CALCIUM 8.1 MG/DL (8.5-10.1)
[2017-07-21 08:52] LABS: ALBUMIN 2.3 GM/DL (3.4-5.0); BICARBONATE 31.1 MEQ/L (21.0-32.0)
[2017-07-21 09:08] LABS: CREATININE 1.9 MG/DL (0.60-1.30); PHOSPHORUS 3.7 MG/DL (2.5-4.9)
--- NOTE | 2017-07-21 11:38 | RADRPT ---
EXAM DATE/TIME: 07/21/2017 11:05 [facility] COMPARISON: No previous studies available for comparison. INDICATIONS : Dyspnea. MEDICAL HISTORY : Hypercholesterolemia. Hyperthyroidism. Osteoarthritis. COPD. Dyspnea. GERD.Renal disease. Renal failu re. Musculoskeletal disorders. Arthritis. Gout. Cirrhosis. CHF. Shingles. SURGICAL HISTORY : Appendectomy. ENCOUNTER: Subsequent ACUITY: 2 days PAIN SCORE: 0/10 LOCATION: chest FINDINGS: Cardiomegaly with mild interstitial edema stable in the interval. Minimal bibasilar parenchyma watson es worse on the right. Degenerative changes thoracic spine. CONCLUSION: Persistent interstitial edema pattern, stable Nathan Agrawal MD FACR on July 21, 2017 at 11:36 Board Certified Radiologist. This report was verified electronically.
--- NOTE | 2017-07-21 11:50 | HHI.PR ---
Subjective Remarks Nursing reports that the patient is still desatting on 4 to 4.5 L of O2. Pt says that his shortness of breath is about the same since yesterday. Says that about a month ago he was able to walk out throughout his home without any shortness of breath but nursing says he is getting very labored just going to the bathroom here in the hospital. Objective Vital Signs Date Time Temp Pulse Resp B/P (MAP) Pulse Ox O2 Delivery O2 Flow Rate FiO2 07/21/17 08:00 96.1 78 18 100/60 (73) 90 07/21/17 07:48 94 Nasal Cannula 5.00 07/21/17 07:30 90 Nasal Cannula 4.50 07/21/17 04:00 97.6 75 16 96/71 (79) 92 07/21/17 00:00 96.8 76 17 116/77 (90) 90 07/20/17 21:00 72 07/20/17 20:20 92 Nasal Cannula 4.50 07/20/17 20:00 96.1 73 18 109/79 (89) 92 07/20/17 16:00 98.0 77 18 122/70 (87) 100 07/20/17 14:10 93 Nasal Cannula 4.50 07/20/17 12:00 98.0 74 18 110/71 (84) 100 I/O 07/20/17 07/20/17 07/20/17 07/21/17 07/21/17 07/21/17 07:00 15:00 23:00 07:00 15:00 23:00 Intake Total 500 ml 600 ml Output Total 2000 ml 800 ml 2800 ml Balance -2000 ml 500 ml -200 ml -2800 ml Intake Oral 600 ml IV Total 500 ml Output Urine Total 2000 ml 800 ml 2800 ml # Voids 3 5 1 Result Diagram: 07/20/17 0650 07/21/17 0825 Objective Remarks Coarse breath sounds bilaterally with good aeration, no labored breathing RLE with erythema superimposed on chronic brawny changes A/P Assessment and Plan 07/17: Appreciate pulmonary consultation, continue O2 7 Medrol, DuoNeb, IV Lasix , strict monitoring FLAKO and weight, Change doxycycline to vancomycin for right lower extremity cellulitis and monitor improvement, consider ID consult Renal failure creatinine 1.7 continue monitoring FLAKO, consider nephrology consultation 07/18: Worsening scrotal edema with Creatinine still not improving along with BMP increased from 842-1368 Will increase his Lasix to 60 mg twice a day may need to add metolazone , switch to more potent diuretic versus drip I will consult nephrology, Continue monitoring I&O strictly with daily weighting, BMP and BNP 08-16 ADD METALOZONE 07/20: stable genital swelling; nephrology following likely from right sided heart failure as echo showing right sided severe systolic dysfunction 07/21: frail resp status, still needing increased O2, Cr not improving A/P: Acute exacerbation of chronic diastolic heart failure with right sided systolic dysfunction - Continue lasix and metalozaone per nephro ELOINA on suspected CKD -Discussed with nephrology, will give 3 doses of IV albumin today to see if overall edema and creatinine function improves Acute on chronic hypoxemic respiratory failure - Acute COPD exacerbation and pulm edema as above, wean to 2 L - Scheduled bronchodilator therapy with DuoNeb every 4 hours and as needed - Symbicort and prednisone per pulmonology - Use BiPAP PRN - Incentive spirometry every hour while awake, EzPAP Right lower extremity cellulitis - Continue doxycycline-started in emergency department, blood cultures are neg. will consult wound care nurse Chronic atrial fibrillation - Continue home aspirin and metoprolol. May need NOAC upon discharge given stroke risk. aspirin and heparin. Albino Kelly MD Jul 21, 2017 11:50
--- NOTE | 2017-07-21 12:11 | HHI.NPPN ---
Subjective General Problems: Edema Renal Failure: Chronic, Acute, Stage III Interval History He is on 5L of oxygen today. Edema persists, may be slightly better. Renal function is stable, although BUN is higher. (Lesia Alvares) Review of Systems Cardiovascular Cardiac: Edema (Lesia Alvares) Objective Data Data Vital Signs Date Time Temp Pulse Resp B/P (MAP) Pulse Ox O2 Delivery O2 Flow Rate FiO2 07/21/17 08:00 96.1 78 18 100/60 (73) 90 07/21/17 07:48 94 Nasal Cannula 5.00 07/21/17 07:30 90 Nasal Cannula 4.50 07/21/17 04:00 97.6 75 16 96/71 (79) 92 07/21/17 00:00 96.8 76 17 116/77 (90) 90 07/20/17 21:00 72 07/20/17 20:20 92 Nasal Cannula 4.50 07/20/17 20:00 96.1 73 18 109/79 (89) 92 07/20/17 16:00 98.0 77 18 122/70 (87) 100 07/20/17 14:10 93 Nasal Cannula 4.50 (Lesia Alvares) -: 07/20/17 0650 07/21/17 0825 Imaging Last 72 hours Impressions Chest X-Ray 07/20/17 0600 Signed Impressions: Service Date/Time: Thursday, July 20, 2017 06:11 - CONCLUSION: 1. Cardiomegaly with stable pulmonary edema pattern. 2. No significant interval change Chris Guzman MD Renal Ultrasound 07/20/17 0000 Signed Impressions: Service Date/Time: Thursday, July 20, 2017 14:27 - CONCLUSION: 1. Unremarkable ultrasound examination of the kidneys. 2. Echogenic liver compatible with fatty infiltration or hepatocellular disease. Jason Batista MD (Lesia Alvares) Physical Exam General Appearance: Well Developed, No Acute Distress, Comfortable (Lesia Alvares) Throat Throat Exam: Oral Mucosa Kenneth & Moist (Lesia Alvares) Pulmonary Resp Exam: No Distress, Crackles (Lesia Alvares) Cardiology CV Exam: Regular, Normal Sinus Rhythm (Lesia Alvares) Gastrointestinal/Abdomen GI Exam: Soft, Non-Tender, Distended (Lesia Alvares) Musculoskeletal MS Exam: Joints Intact, Normal Tone (Lesia Alvares) Integumentary Skin Exam: Warm, Dry, Intact (Lesia Alvares) Extremeties Extremities Exam: Pedal Pulses Palpable, Pitting Edema, Dependent Edema (Lesia Alvares) Neurologic Neuro Exam: Alert, Awake, Oriented, Speech Clear, Moving All Extremities (Lesia Alvares) Psychiatric Psych Exam: Appropriate Responses (Lesia Alvares) Assessment/Plan Discussed Condition With: Patient Assessment Summary: ELOINA/Acute Renal Failure, CHF, Hypertension Problem List: (1) Acute kidney injury superimposed on CKD ICD Codes: S37.009A - Unspecified injury of unspecified kidney, initial encounter; N18.9 - Chronic kidney disease, unspecified Status: Acute Plan: Baseline creainine 1.3 ELOINA from CHF exacerbation, with increased renal vein pressure. Also was hypotensive on arrival, may have suffered hypoperfusion injury Extensive fluid overload persists. Continue diuresis with Lasix 80 mg BID IV; also on Zaroxolyn 5 mg BID Start Spironolactone 25 mg daily Ordered Albumin He is non oliguric, responding to treatment. High BUN may be due to steroids, taper off when possible Renal US negative; UA is unremarkable Repeat labs in AM Avoid nephrotoxic agents, renally dose when appropriate Vancomycin level noted to be high yesterday. (2) Hypertension ICD Codes: I10 - Essential (primary) hypertension Status: Acute Plan: BP borderline low early this AM On metoprolol, furosemide, Zaroxolyn; spironolactone added today Off Amlodipine due to lower extremity edema Continue and titrate as needed. (3) Acute exacerbation of CHF (congestive heart failure) ICD Codes: I50.9 - Heart failure, unspecified Plan: Fluid removal as tolerated Diuresis as above Low salt diet (4) COPD with acute exacerbation ICD Codes: J44.1 - Chronic obstructive pulmonary disease with (acute) exacerbation Plan: On prednisone, oxygen, nebs Serum CO2 improved (5) Cellulitis of right leg ICD Codes: L03.115 - Cellulitis of right lower limb Status: Acute Plan: Appears chronic, On vancomycin IV No signs of infection, afebrile, no leukocytosis (Lesia Alvares) Plan Agree with above assessment and plan. To start Spironolactone. (Amando Webber MD) Problem Qualifiers (1) Hypertension: Qualified Codes: I10 - Essential (primary) hypertension (2) Acute exacerbation of CHF (congestive heart failure): Qualified Codes: I50.33 - Acute on chronic diastolic (congestive) heart failure Lesia Alvares Jul 21, 2017 12:11 Amando Webber MD Jul 22, 2017 10:10
[2017-07-21] MEDS: ALBUMIN 25% INJ 100 ML IV SCH ×2 (12:36→17:18)
[2017-07-21] MEDS: SPIRONOLACTONE 25 MG TAB PO SCH (13:12)
[2017-07-21] MEDS ORDERED: VANCOMYCIN INJ 1,500 MG in SODIUM CHLORID 0.9% 500 ML INJ 500 ML IV SCH (16:00)
--- NOTE | 2017-07-21 17:23 | HHI.PR ---
Subjective Remarks Alert and on O2 N/C 3 L on Lasix and KCL.and IV albumin and Aldactone. C/O Scrotal swelling. NO SOB. Objective Vital Signs Date Time Temp Pulse Resp B/P (MAP) Pulse Ox O2 Delivery O2 Flow Rate FiO2 07/21/17 12:00 97.6 68 18 105/70 (82) 90 07/21/17 08:00 96.1 78 18 100/60 (73) 90 07/21/17 07:48 94 Nasal Cannula 5.00 07/21/17 07:30 90 Nasal Cannula 4.50 07/21/17 04:00 97.6 75 16 96/71 (79) 92 07/21/17 00:00 96.8 76 17 116/77 (90) 90 07/20/17 21:00 72 07/20/17 20:20 92 Nasal Cannula 4.50 07/20/17 20:00 96.1 73 18 109/79 (89) 92 I/O 07/20/17 07/20/17 07/20/17 07/21/17 07/21/17 07/21/17 07:00 15:00 23:00 07:00 15:00 23:00 Intake Total 500 ml 600 ml Output Total 2000 ml 800 ml 2800 ml Balance -2000 ml 500 ml -200 ml -2800 ml Intake Oral 600 ml IV Total 500 ml Output Urine Total 2000 ml 800 ml 2800 ml # Voids 3 5 1 Result Diagram: 07/20/17 0650 07/21/17 0825 Objective Remarks GENERAL: This is an obese elderly man who is alert, pale and not dyspneic. He has 2 + edema of both lower extremities, HEENT: Head is normocephalic. Pupils are reactive. Throat is clear. NECK: Supple with mild venous distention at 45 degrees. Trachea midline. No thyroid enlargement. CHEST: Decreased breath sounds at the bases; bibasilar crackles heard with occ wheeze over both lung jacobson. HEART: The heart sounds are irregular, S1 and S2. No definite murmur. No S3. ABDOMEN: The abdomen is soft and protuberant. No masses or organomegaly. Bowel sounds are active. Scrotal edema ++ EXTREMITIES: Edema 2 + with redness of the skin at ankle . Reflexes are 1+. The patient does move his extremities well. Assessment and Plan Assessment and Plan IMPRESSION 1. CHF with acute exacerbation. 2. COPD with chronic bronchitis and emphysema. 3. Acute respiratory failure. 4. Hypertension. 5. Cellulitis of the right leg. 6. Peripheral vascular disease. 7. History of chronic kidney disease with acute kidney injury. 8. Probable obstructive sleep apnea. PLan : 1. Wean o2 to 3 L. 2. Cont Albumin/ lasix 3. IS at bedside q3h 4. Up with help. 5. Prednisone 30 mgm daily 6. CBC BMP in am. 7. PFT with Bronchodilator Brittni Randhawa MD Jul 21, 2017 17:23
[2017-07-21] MEDS: FOLIC ACID 1 MG TAB PO SCH (21:19)
[2017-07-21] MEDS: ALLOPURINOL 300 MG TAB PO SCH (21:22)
[2017-07-22] VITALS (9 sets, daily range): BP systolic 103–121; BP diastolic 67–79; PULSE 64–78; RESP 18–22; TEMP 96–97; O2SAT 90–97
[2017-07-22] MEDS: ALBUMIN 25% INJ 100 ML IV SCH ×4 (01:03→17:46)
[2017-07-22] MEDS: CHLORHEXIDINE GLUCONATE 2 % 1 PACK (2 CLOTHS) TOP SCH (01:08)
[2017-07-22] MEDS: HEPARIN SODIUM - SQ 10,000 UNITS/ML VIAL SQ SCH ×3 (06:46→22:05)
[2017-07-22] MEDS: LEVOTHYROXINE SODIUM 50 MCG TAB PO SCH (06:46)
[2017-07-22] MEDS: RESP: ALBUTEROL 2.5 MG/IPRATROPIUM 0.5 MG NEB (SCH) NEB ×3 (07:52→18:50)
--- NOTE | 2017-07-22 08:22 | HHI.NPPN ---
Subjective General Problems: Edema Renal Failure: Chronic, Acute, Stage III Interval History Excellent urine output. Pending AM labs. (Lesia Alvares) Review of Systems Cardiovascular Cardiac: Edema (Lesia Alvares) Skin Skin: Skin Rash (Lesia Alvares) Objective Data Data Vital Signs Date Time Temp Pulse Resp B/P (MAP) Pulse Ox O2 Delivery O2 Flow Rate FiO2 07/22/17 08:14 93 Nasal Cannula 3.50 07/22/17 07:55 97 Nasal Cannula 4.00 07/22/17 04:00 96.5 78 20 117/79 (92) 90 07/21/17 22:30 95 Nasal Cannula 5.00 07/21/17 20:00 95.7 77 16 108/75 (86) 90 07/21/17 16:00 97.6 77 18 110/60 (77) 98 07/21/17 12:00 97.6 68 18 105/70 (82) 90 (Lesia Alvares) -: 07/20/17 0650 07/21/17 0825 Imaging Last 72 hours Impressions Chest X-Ray 07/21/17 0000 Signed Impressions: Service Date/Time: Friday, July 21, 2017 11:05 - CONCLUSION: Persistent interstitial edema pattern, stable Nathan Agrawal MD FACR Chest X-Ray 07/20/17 0600 Signed Impressions: Service Date/Time: Thursday, July 20, 2017 06:11 - CONCLUSION: 1. Cardiomegaly with stable pulmonary edema pattern. 2. No significant interval change Chris Guzman MD Renal Ultrasound 07/20/17 0000 Signed Impressions: Service Date/Time: Thursday, July 20, 2017 14:27 - CONCLUSION: 1. Unremarkable ultrasound examination of the kidneys. 2. Echogenic liver compatible with fatty infiltration or hepatocellular disease. Jason Batista MD (Lesia Alvares) Physical Exam General Appearance: Well Developed, No Acute Distress, Comfortable (Lesia Alvares) Throat Throat Exam: Oral Mucosa Carefree & Moist (Lesia Alvares) Pulmonary Resp Exam: No Distress, Crackles (Lesia Alvares) Cardiology CV Exam: Regular, Normal Sinus Rhythm (Lesia Alvares) Gastrointestinal/Abdomen GI Exam: Soft, Non-Tender, Distended (Lesia Alvares) Musculoskeletal MS Exam: Joints Intact, Normal Tone (Lesia Alvares) Integumentary Skin Exam: Warm, Dry, Intact, Lesion(s) Skin Remarks Lower extremities with erythema, scaly lesions, R>L (Lesia Alvares) Extremeties Extremities Exam: Pedal Pulses Palpable, Pitting Edema, Dependent Edema (Lesia Alvares) Neurologic Neuro Exam: Alert, Awake, Oriented, Speech Clear, Moving All Extremities (Lesia Alvares) Psychiatric Psych Exam: Appropriate Responses (Lesia Alvares) Assessment/Plan Discussed Condition With: Patient Assessment Summary: ELOINA/Acute Renal Failure, CHF, Hypertension Problem List: (1) Acute kidney injury superimposed on CKD ICD Codes: S37.009A - Unspecified injury of unspecified kidney, initial encounter; N18.9 - Chronic kidney disease, unspecified Status: Acute Plan: Baseline creainine 1.3 ELOINA from CHF exacerbation, with increased renal vein pressure. Also was hypotensive on arrival, may have suffered hypoperfusion injury Improving fluid overload Diuresis consists of Lasix 80 mg BID IV, Zaroxolyn 5 mg BID, Spironolactone 25 mg daily Await labs from today Albumin x 2 doses High BUN may be due to steroids, taper off when possible Repeat labs in daily Avoid nephrotoxic agents, renally dose when appropriate Vancomycin level noted to be high this week (2) Hypertension ICD Codes: I10 - Essential (primary) hypertension Status: Acute Plan: BP improved On metoprolol, furosemide, Zaroxolyn, and spironolactone Off Amlodipine due to lower extremity edema Continue and titrate as needed. (3) Acute exacerbation of CHF (congestive heart failure) ICD Codes: I50.9 - Heart failure, unspecified Plan: Fluid removal as tolerated Diuresis as above Low salt diet (4) COPD with acute exacerbation ICD Codes: J44.1 - Chronic obstructive pulmonary disease with (acute) exacerbation Plan: On prednisone, oxygen, nebs Serum CO2 improved (5) Cellulitis of right leg ICD Codes: L03.115 - Cellulitis of right lower limb Status: Acute Plan: Appears chronic, On vancomycin IV No acute signs of infection, afebrile, no leukocytosis (Lesia Alvares) Plan Renal function is stable. Serum potassium is 4.9, if it goes higher, may need to stop Spironolactone. Stop Albumin. Agree with above assessment and plan. (Amando Webber MD) Problem Qualifiers (1) Hypertension: Qualified Codes: I10 - Essential (primary) hypertension (2) Acute exacerbation of CHF (congestive heart failure): Qualified Codes: I50.33 - Acute on chronic diastolic (congestive) heart failure Lesia Alvares Jul 22, 2017 08:22 Amando Webber MD Jul 22, 2017 20:37
[2017-07-22] MEDS: MULTIVITAMIN TAB PO SCH (08:37)
[2017-07-22] MEDS: FAMOTIDINE 20 MG TAB PO SCH ×2 (08:37→22:02)
[2017-07-22] MEDS: predniSONE 10 MG TAB PO SCH (08:37)
[2017-07-22] MEDS: FUROSEMIDE 40 MG/4 ML VIAL IV PUSH SCH ×2 (08:38→17:47)
[2017-07-22] MEDS: METOLAZONE 5 MG TAB PO SCH ×2 (08:38→22:02)
[2017-07-22] MEDS: METOPROLOL TARTRATE 100 MG TAB PO SCH (08:38)
[2017-07-22] MEDS: SPIRONOLACTONE 25 MG TAB PO SCH (08:38)
[2017-07-22] MEDS: ASPIRIN 81 MG CHEW TAB CHEW SCH (08:38)
[2017-07-22] MEDS: BUDESONIDE-FORMOTEROL 160/4.5 MCG INHALER INH SCH ×2 (08:39→22:03)
[2017-07-22] MEDS: SODIUM CHLORIDE 0.9% FLUSH 10 ML FLUSH IV FLUSH SCH ×2 (08:39→21:00)
[2017-07-22] MEDS: DOCUSATE SODIUM 50 MG/SENNA 8.6 MG TAB PO SCH ×2 (08:39→22:01)
--- NOTE | 2017-07-22 13:06 | PD.WCN.NOT ---
Wound Consult Description: Wound consult ordered by for right lower extremity Communicated with: Susana SHARMA 3 floor [facility], Recommendation: 1) Perform shaving cream therapy to lower extremities x3 days 2) Encourage patient to elevate lower extremities and reframe from using salt on food 3) If lower extremities begin to weep apply Optifoam basic secure with rolled gauze/tape change every three days or as needed for exudate management. Additional Information: Patient was seen today on 3rd floor [facility] by keno writer/runner and Susana SHARMA.Patient alert x3 in bed upon keno writer/runner arrival.Assessment of lower extremities cleansed with normal saline pat dry. Right lower extremity has +1 pitting edema with erythema noted reducing in size from previously adriel areas.No drainage noted.Patient states edema comes and goes.Right lower extremity is effected worse than left lower extremity.Left lower extremity has trace edema with no open areas noted.Faint erythema noted to distal tibial area.Patient has bilateral positive pedal pulses.Patient has history of congestive heart failure compression can not be recommended.Shaving cream therapy recommended for 3 days for dry flaking skin on bilateral lower extremities. Jl Avendaño [facility] Jul 22, 2017 13:06
--- NOTE | 2017-07-22 13:46 | HHI.PR ---
Subjective Remarks Nursing denies any deterioration since last night. Patient says he feels as if his shortness of breath is much better than yesterday. Nursing was able to down titrate his O2 to 3.5 L this morning Objective Vital Signs Date Time Temp Pulse Resp B/P (MAP) Pulse Ox O2 Delivery O2 Flow Rate FiO2 07/22/17 08:14 93 Nasal Cannula 3.50 07/22/17 08:00 97.0 71 18 105/77 (86) 96 07/22/17 07:55 97 Nasal Cannula 4.00 07/22/17 04:00 96.5 78 20 117/79 (92) 90 07/21/17 22:30 95 Nasal Cannula 5.00 07/21/17 20:00 95.7 77 16 108/75 (86) 90 07/21/17 16:00 97.6 77 18 110/60 (77) 98 I/O 07/21/17 07/21/17 07/21/17 07/22/17 07/22/17 07/22/17 07:00 15:00 23:00 07:00 15:00 23:00 Intake Total 600 ml 680 ml Output Total 2800 ml 2700 ml 1080 ml Balance -2800 ml -2100 ml -400 ml Intake Oral 600 ml 480 ml IV Total 200 ml Output Urine Total 2800 ml 2700 ml 1080 ml # Voids 1 6 # Bowel Movements 1 Result Diagram: 07/20/17 0650 07/21/17 0825 Objective Remarks Coarse breath sounds bilaterally with good aeration, no labored breathing Patient has clarified that his lower extremity skin changes are chronic with no acute element identified on exam today A/P Assessment and Plan 07/17: Appreciate pulmonary consultation, continue O2 7 Medrol, DuoNeb, IV Lasix , strict monitoring FLAKO and weight, Change doxycycline to vancomycin for right lower extremity cellulitis and monitor improvement, consider ID consult Renal failure creatinine 1.7 continue monitoring FLAKO, consider nephrology consultation 07/18: Worsening scrotal edema with Creatinine still not improving along with BMP increased from [id number] Will increase his Lasix to 60 mg twice a day may need to add metolazone , switch to more potent diuretic versus drip I will consult nephrology, Continue monitoring I&O strictly with daily weighting, BMP and BNP - ADD METALOZONE 07/20: stable genital swelling; nephrology following likely from right sided heart failure as echo showing right sided severe systolic dysfunction 07/21: frail resp status, still needing increased O2, Cr not improving 07/22: O2 slightly improved A/P: Acute exacerbation of chronic diastolic heart failure with right sided systolic dysfunction - Continue lasix and metalozaone per nephro ELOINA on suspected CKD -No significant improvement with 3 doses of albumin, nephrology following Acute on chronic hypoxemic respiratory failure - Acute COPD exacerbation and pulm edema as above, wean to 2-3 L - Scheduled bronchodilator therapy with DuoNeb every 4 hours and as needed - Symbicort and prednisone per pulmonology - Use BiPAP PRN - Incentive spirometry every hour while awake, EzPAP BLE changes - not cellulitis rather chronic skin changes w/ venous stasis, stopping abx. blood cultures negative, monitor w/ daily markings Chronic atrial fibrillation - Continue home aspirin and metoprolol. May need NOAC upon discharge given stroke risk. aspirin and heparin. Albino Kelly MD Jul 22, 2017 13:46
[2017-07-22] MEDS ORDERED: PHARMACY ORDERED LAB ONE (15:45)
[2017-07-22 16:42] LABS: ALBUMIN 3.4 GM/DL (3.4-5.0); BICARBONATE 32.6 MEQ/L (21.0-32.0); CALCIUM 8.3 MG/DL (8.5-10.1); CREATININE 1.9 MG/DL (0.60-1.30); PHOSPHORUS 3.3 MG/DL (2.5-4.9)
[2017-07-22] MEDS: FOLIC ACID 1 MG TAB PO SCH (21:00)
[2017-07-22] MEDS: ALLOPURINOL 300 MG TAB PO SCH (22:02)
[2017-07-23] VITALS (10 sets, daily range): BP systolic 92–114; BP diastolic 60–72; PULSE 64–82; RESP 18–20; TEMP 96–98; O2SAT 90–96
[2017-07-23] MEDS: CHLORHEXIDINE GLUCONATE 2 % 1 PACK (2 CLOTHS) TOP SCH (03:45)
[2017-07-23] MEDS: HEPARIN SODIUM - SQ 10,000 UNITS/ML VIAL SQ SCH ×3 (05:35→21:28)
[2017-07-23] MEDS: LEVOTHYROXINE SODIUM 50 MCG TAB PO SCH (05:36)
[2017-07-23] MEDS: RESP: ALBUTEROL 2.5 MG/IPRATROPIUM 0.5 MG NEB (SCH) NEB ×3 (07:23→20:21)
--- NOTE | 2017-07-23 09:38 | HHI.NPPN ---
Subjective General Problems: Edema Renal Failure: Chronic, Acute, Stage III Interval History Pending AM labs. He made over 6 liters of urine. Lower extremity edema improved , however scrotal edema has improved. (Lesia Alvares) Review of Systems Cardiovascular Cardiac: Edema (Lesia Alvares) Skin Skin: Skin Rash (Lesia Alvares) Objective Data Data Vital Signs Date Time Temp Pulse Resp B/P (MAP) Pulse Ox O2 Delivery O2 Flow Rate FiO2 07/23/17 08:00 97.0 82 20 109/68 (82) 91 07/23/17 07:24 96 Nasal Cannula 3.50 07/23/17 04:00 96.0 68 20 106/72 (83) 91 07/23/17 01:02 65 07/23/17 00:26 68 07/23/17 00:00 96.5 64 20 98/70 (79) 91 07/22/17 21:00 92 Nasal Cannula 3.50 07/22/17 20:00 96.0 74 20 109/74 (86) 92 07/22/17 18:52 92 Nasal Cannula 3.50 07/22/17 16:00 96.8 66 20 121/67 (85) 93 07/22/17 12:00 96.9 64 22 103/69 (80) 97 (Lesia Alvares) -: 07/20/17 0650 07/22/17 1550 Imaging Last 72 hours Impressions Chest X-Ray 07/21/17 0000 Signed Impressions: Service Date/Time: Friday, July 21, 2017 11:05 - CONCLUSION: Persistent interstitial edema pattern, stable Nathan Agrawal MD FACR (Lesia Alvares) Physical Exam General Appearance: Well Developed, No Acute Distress, Comfortable (Lesia Alvares) Throat Throat Exam: Oral Mucosa Dorrance & Moist (Lesia Alvares) Pulmonary Resp Exam: No Distress, Crackles (Lesia Alvares) Cardiology CV Exam: Regular, Normal Sinus Rhythm (Lesia Alvares) Gastrointestinal/Abdomen GI Exam: Soft, Non-Tender, Distended (Lesia Alvares) Musculoskeletal MS Exam: Joints Intact, Normal Gait, Normal Tone, Good Strength (Lesia Alvares) Integumentary Skin Exam: Warm, Dry, Intact, Lesion(s) Skin Remarks Lower extremities with erythema, scaly lesions, R>L (Lesia Alvares) Extremeties Extremities Exam: Pedal Pulses Palpable, Pitting Edema, Dependent Edema (Lesia Alvares) Neurologic Neuro Exam: Alert, Awake, Oriented, Speech Clear, Moving All Extremities (Lesia Alvares) Psychiatric Psych Exam: Appropriate Responses (Lesia Alvares) Assessment/Plan Discussed Condition With: Patient Assessment Summary: ELOINA/Acute Renal Failure, CHF, Hypertension Problem List: (1) Acute kidney injury superimposed on CKD ICD Codes: S37.009A - Unspecified injury of unspecified kidney, initial encounter; N18.9 - Chronic kidney disease, unspecified Status: Acute Plan: Baseline creainine 1.3 ELOINA from CHF exacerbation, with increased renal vein pressure. Also was hypotensive on arrival, may have suffered hypoperfusion injury Improving fluid overload Excellent response to diuresis: regimen consists of Lasix 80 mg BID IV, Zaroxolyn 5 mg BID, Spironolactone 25 mg daily Repeat labs, renal function has been stable. If hyperkalemic, may need to stop Spironolactone. High BUN may be due to steroids, taper off when possible Follow urine output. Avoid nephrotoxic agents, renally dose when appropriate Vancomycin stopped (2) Hypertension ICD Codes: I10 - Essential (primary) hypertension Status: Acute Plan: BP improved On metoprolol, furosemide, Zaroxolyn, and spironolactone Off Amlodipine due to lower extremity edema Continue and titrate as needed. (3) Acute exacerbation of CHF (congestive heart failure) ICD Codes: I50.9 - Heart failure, unspecified Plan: Fluid removal as tolerated Diuresis as above Low salt diet Fluid restriction (4) COPD with acute exacerbation ICD Codes: J44.1 - Chronic obstructive pulmonary disease with (acute) exacerbation Plan: On prednisone, oxygen, nebs Serum CO2 improved (5) Cellulitis of right leg ICD Codes: L03.115 - Cellulitis of right lower limb Status: Acute Plan: Appears chronic, off vancomycin IV No acute signs of infection, afebrile, no leukocytosis Needs wound care to right leg. (Lesia Alvares) Plan Creatinine is higher somewhat with diuresis. Excellent urine output. Continue the same for another day. He can be discharged soon from renal standpoint (Amando Webber MD) Problem Qualifiers (1) Hypertension: Qualified Codes: I10 - Essential (primary) hypertension (2) Acute exacerbation of CHF (congestive heart failure): Qualified Codes: I50.33 - Acute on chronic diastolic (congestive) heart failure Lesia Alvares Jul 23, 2017 09:37 Amando Webber MD Jul 23, 2017 12:27
[2017-07-23 09:49] LABS: ALBUMIN 3.5 GM/DL (3.4-5.0); BICARBONATE 35.6 MEQ/L (21.0-32.0); CALCIUM 8.7 MG/DL (8.5-10.1)
[2017-07-23 09:53] LABS: PHOSPHORUS 3.2 MG/DL (2.5-4.9)
[2017-07-23 09:56] LABS: CREATININE 2.1 MG/DL (0.60-1.30)
[2017-07-23] MEDS: DOCUSATE SODIUM 50 MG/SENNA 8.6 MG TAB PO SCH ×2 (10:55→21:00)
[2017-07-23] MEDS: MULTIVITAMIN TAB PO SCH (10:55)
[2017-07-23] MEDS: METOPROLOL TARTRATE 100 MG TAB PO SCH (10:55)
[2017-07-23] MEDS: METOLAZONE 5 MG TAB PO SCH ×2 (10:56→21:28)
[2017-07-23] MEDS: SPIRONOLACTONE 25 MG TAB PO SCH (10:56)
[2017-07-23] MEDS: predniSONE 10 MG TAB PO SCH (10:56)
[2017-07-23] MEDS: SODIUM CHLORIDE 0.9% FLUSH 10 ML FLUSH IV FLUSH SCH ×2 (10:57→21:27)
[2017-07-23] MEDS: BUDESONIDE-FORMOTEROL 160/4.5 MCG INHALER INH SCH ×2 (10:58→21:27)
[2017-07-23] MEDS: ASPIRIN 81 MG CHEW TAB CHEW SCH (10:58)
[2017-07-23] MEDS: FAMOTIDINE 20 MG TAB PO SCH ×2 (11:03→21:27)
[2017-07-23] MEDS: FUROSEMIDE 40 MG/4 ML VIAL IV PUSH SCH ×2 (11:04→18:29)
--- NOTE | 2017-07-23 14:29 | HHI.PR ---
Objective Vitals Vital Signs Date Time Temp Pulse Resp B/P (MAP) Pulse Ox O2 Delivery O2 Flow Rate FiO2 07/23/17 12:00 96.9 64 20 92/60 (71) 92 07/23/17 08:00 97.0 82 20 109/68 (82) 91 07/23/17 07:24 96 Nasal Cannula 3.50 07/23/17 04:00 96.0 68 20 106/72 (83) 91 07/23/17 01:02 65 07/23/17 00:26 68 07/23/17 00:00 96.5 64 20 98/70 (79) 91 07/22/17 21:00 92 Nasal Cannula 3.50 07/22/17 20:00 96.0 74 20 109/74 (86) 92 07/22/17 18:52 92 Nasal Cannula 3.50 07/22/17 16:00 96.8 66 20 121/67 (85) 93 I/O 07/22/17 07/22/17 07/22/17 07/23/17 07/23/17 07/23/17 06:59 14:59 22:59 06:59 14:59 22:59 Intake Total 680 ml 100 ml 100 ml Output Total 1080 ml 1850 ml 3150 ml 1275 ml Balance -400 ml -1750 ml -3050 ml -1275 ml Intake Oral 480 ml IV Total 200 ml 100 ml 100 ml Output Urine Total 1080 ml 1850 ml 3150 ml 1275 ml # Voids 2 # Bowel Movements 1 1 0 Result Diagram: 07/20/17 0650 07/23/17 0910 Imaging Last Impressions Chest X-Ray 07/21/17 0000 Signed Impressions: Service Date/Time: Friday, July 21, 2017 11:05 - CONCLUSION: Persistent interstitial edema pattern, stable Nathan Agrawal MD FACR Renal Ultrasound 07/20/17 0000 Signed Impressions: Service Date/Time: Thursday, July 20, 2017 14:27 - CONCLUSION: 1. Unremarkable ultrasound examination of the kidneys. 2. Echogenic liver compatible with fatty infiltration or hepatocellular disease. Jason Batista MD Objective Remarks Lower extremity dry sloughing with underlying changes of venous stasis, scrotum has +3 edema GENERAL: This is a well-nourished, well-developed patient, in no apparent distress. CARDIOVASCULAR: Regular rate and rhythm without murmurs, gallops, or rubs. RESPIRATORY: Clear to auscultation. Breath sounds equal bilaterally. No wheezes , rales, or rhonchi. GASTROINTESTINAL: Abdomen soft, non-tender, nondistended. Normal active bowel sounds MUSCULOSKELETAL: Extremities without clubbing, cyanosis, or edema. NEURO: Alert & Oriented x4 to person, place, time, situation. Moves all ext x4 A/P Problem List: (1) Hypertension ICD Code: I10 - Essential (primary) hypertension Status: Acute (2) Acute hypoxemic respiratory failure ICD Code: J96.01 - Acute respiratory failure with hypoxia Plan: Patient seen and appears to have improved posterior baseline on 4 L O2. Status post diuresis (3) Acute exacerbation of CHF (congestive heart failure) ICD Code: I50.9 - Heart failure, unspecified Plan: Status post aggressive diuresis, overall improvement lower extremities but with +3 scrotal edema Continue with scrotal elevation and supportive care, if no improvement over the weekend will consult urology (4) COPD with acute exacerbation ICD Code: J44.1 - Chronic obstructive pulmonary disease with (acute) exacerbation Plan: Continue with steroid taper, follow-up clinically with bronchodilators by nebulizer (5) Acute kidney injury superimposed on CKD ICD Code: S37.009A - Unspecified injury of unspecified kidney, initial encounter; N18.9 - Chronic kidney disease, unspecified Status: Acute Plan: Renal following patient for acute kidney injury with multifactorial causes (CHF with renal vein pressure increase, hypotension with hypoperfusion injury, baseline creatinine 1.3 Patient with good urine output (6) Cellulitis of right leg ICD Code: L03.115 - Cellulitis of right lower limb Status: Acute Plan: All improved, patient with chronic skin changes Continue with wound care, off antibiotics, blood cultures are negative (7) Chronic atrial fibrillation ICD Code: I48.2 - Chronic atrial fibrillation Plan: Currently stable on aspirin and metoprolol (8) Hypothyroidism ICD Code: E03.9 - Hypothyroidism, unspecified Status: Acute Plan: Continue home medicines Assessment and Plan Likely home with home health care when stable Problem Qualifiers (1) Hypertension: Qualified Codes: I10 - Essential (primary) hypertension (2) Acute exacerbation of CHF (congestive heart failure): Qualified Codes: I50.33 - Acute on chronic diastolic (congestive) heart failure Amanda Stark MD Jul 23, 2017 14:28
[2017-07-23] MEDS: ALLOPURINOL 300 MG TAB PO SCH (21:27)
[2017-07-23] MEDS: FOLIC ACID 1 MG TAB PO SCH (21:28)
[2017-07-24 00:07] VITALS: BP 104/63; PULSE 69; RESP 20; TEMP 98.1; O2SAT 91
[2017-07-24] MEDS: CHLORHEXIDINE GLUCONATE 2 % 1 PACK (2 CLOTHS) TOP SCH (04:00)
[2017-07-24 04:06] VITALS: BP 115/72; PULSE 73; RESP 18; TEMP 97.9; O2SAT 94
[2017-07-24] MEDS: HEPARIN SODIUM - SQ 10,000 UNITS/ML VIAL SQ SCH ×2 (06:30→14:00)
[2017-07-24] MEDS: LEVOTHYROXINE SODIUM 50 MCG TAB PO SCH (06:30)
[2017-07-24] MEDS: RESP: ALBUTEROL 2.5 MG/IPRATROPIUM 0.5 MG NEB (SCH) NEB (07:47)
[2017-07-24 07:48] VITALS: O2SAT 97
[2017-07-24 08:00] VITALS: BP 107/68; PULSE 68; RESP 20; TEMP 96.8; O2SAT 92
[2017-07-24] MEDS: BUDESONIDE-FORMOTEROL 160/4.5 MCG INHALER INH SCH (08:01)
[2017-07-24] MEDS: FUROSEMIDE 40 MG/4 ML VIAL IV PUSH SCH (08:02)
[2017-07-24] MEDS: predniSONE 10 MG TAB PO SCH (08:02)
[2017-07-24] MEDS: SPIRONOLACTONE 25 MG TAB PO SCH (08:02)
[2017-07-24] MEDS: FAMOTIDINE 20 MG TAB PO SCH (08:03)
[2017-07-24] MEDS: ASPIRIN 81 MG CHEW TAB CHEW SCH (08:03)
[2017-07-24] MEDS: DOCUSATE SODIUM 50 MG/SENNA 8.6 MG TAB PO SCH ×2 (08:03→08:06)
[2017-07-24] MEDS: MULTIVITAMIN TAB PO SCH (08:03)
[2017-07-24] MEDS: METOPROLOL TARTRATE 100 MG TAB PO SCH (08:03)
[2017-07-24 08:04] LABS: CALCIUM 8.7 MG/DL (8.5-10.1)
[2017-07-24] MEDS: METOLAZONE 5 MG TAB PO SCH (08:04)
[2017-07-24] MEDS: SODIUM CHLORIDE 0.9% FLUSH 10 ML FLUSH IV FLUSH SCH (08:04)
[2017-07-24 08:05] LABS: ALBUMIN 3.1 GM/DL (3.4-5.0); BICARBONATE 37.3 MEQ/L (21.0-32.0)
--- NOTE | 2017-07-24 11:50 | HHI.FF ---
Face to Face Verification Diagnosis: (1) Acute kidney injury superimposed on CKD (2) Cellulitis of right leg (3) COPD with acute exacerbation Physical Therapy Order: Evaluate and Treat, Improve ambulation Home Health Nursing Order: Medical education Signs/symptoms of disease process Lamp Wirer Order: To Evaluate: Living conditions/environment Order: To Provide: Long range planning I have seen patient Donovan Herring on 07/24/17. My clinical findings support the need for the requested home health care services because: Patient has SOB Limited ability to care for self I certify that my clinical findings support that this patient is homebound because: Hx COPD- exertion dyspnea/weakness Unable to use public transportation Amanda Stark MD Jul 24, 2017 11:50
[2017-07-24] MEDS ORDERED: METO2.5T PO (11:53)
[2017-07-24] MEDS ORDERED: SPIR25 PO (11:53)
[2017-07-24] MEDS ORDERED: FURO1TAB61 PO (11:53)
--- NOTE | 2017-07-24 11:56 | HHI.DS ---
cc: Amando Webber MD Discharge Summary Admission Date Jul 15, 2017 at 20:38 Discharge Date: Jul 24, 2017 Admitting Diagnosis CHF (1) Hypertension ICD Code: I10 - Essential (primary) hypertension Status: Acute (2) Acute hypoxemic respiratory failure ICD Code: J96.01 - Acute respiratory failure with hypoxia (3) Acute exacerbation of CHF (congestive heart failure) ICD Code: I50.9 - Heart failure, unspecified (4) COPD with acute exacerbation ICD Code: J44.1 - Chronic obstructive pulmonary disease with (acute) exacerbation (5) Acute kidney injury superimposed on CKD ICD Code: S37.009A - Unspecified injury of unspecified kidney, initial encounter; N18.9 - Chronic kidney disease, unspecified Status: Acute (6) Cellulitis of right leg ICD Code: L03.115 - Cellulitis of right lower limb Status: Acute (7) Chronic atrial fibrillation ICD Code: I48.2 - Chronic atrial fibrillation (8) Hypothyroidism ICD Code: E03.9 - Hypothyroidism, unspecified Status: Acute Procedures none Brief History - From Admission Patient is a 71-year-old male with past medical history significant for congestive heart failure, dyslipidemia, chronic A. fib, COPD, hypertension, hypothyroidism, chronic kidney disease, history of alcoholic liver disease who presented to the emergency department yesterday with shortness of breath and increasing bilateral pedal edema. He also gave history of orthopnea. Uses 2 L of home oxygen on arrival to the ED his oxygen saturation was in mid 70s. Patient was immediately placed on BiPAP with 50% oxygen, with improvement in oxygen saturation. ABG on 50% BIPAP ABG pH 7.49 PCO2 35 PaO2 120. Chest x-ray showed evidence of congestive heart failure. Chemistry shows a BNP of 842, creatinine 1.6. Serial troponins have been negative. Patient was admitted to the ICU with admitting diagnosis of CHF exacerbation and COPD exacerbation. Patient was placed on IV Lasix 40 mg every 12, IV Solu-Medrol 40 mg every 6 hours DuoNeb every 4 hours scheduled and as needed and antibiotics with doxycycline I evaluated the patient in the ICU today. He tolerated BiPAP well currently on nasal cannula with good oxygen saturation. Mild tachypnea but subjectively feels improved. Urine output 700 mL since coming to the ICU. Chest x-ray on my review shows slight improvement in congestive heart failure CBC/BMP: 07/20/17 0650 07/24/17 0700 Significant Findings Laboratory Tests Test 07/22/17 15:50 07/23/17 09:10 07/24/17 07:00 Blood Urea Nitrogen 84 MG/DL (7-18) 80 MG/DL (7-18) 80 MG/DL (7-18) Creatinine 1.90 MG/DL (0.60-1.30) 2.10 MG/DL (0.60-1.30) 2.00 MG/DL (0.60-1.30) Random Glucose 160 MG/DL (74-106) 143 MG/DL (74-106) 107 MG/DL (74-106) Calcium Level 8.3 MG/DL (8.5-10.1) Sodium Level 131 MEQ/L (136-145) 134 MEQ/L (136-145) 134 MEQ/L (136-145) Chloride Level 90 MEQ/L (98-107) 89 MEQ/L (98-107) 89 MEQ/L (98-107) Carbon Dioxide Level 32.6 MEQ/L (21.0-32.0) 35.6 MEQ/L (21.0-32.0) 37.3 MEQ/L (21.0-32.0) Estimat Glomerular Filtration Rate 35 ML/MIN (>89) 31 ML/MIN (>89) 33 ML/MIN (>89) Albumin 3.1 GM/DL (3.4-5.0) Imaging Last Impressions Chest X-Ray 07/21/17 0000 Signed Impressions: Service Date/Time: Friday, July 21, 2017 11:05 - CONCLUSION: Persistent interstitial edema pattern, stable Nathan Agrawal MD FACR Renal Ultrasound 07/20/17 0000 Signed Impressions: Service Date/Time: Thursday, July 20, 2017 14:27 - CONCLUSION: 1. Unremarkable ultrasound examination of the kidneys. 2. Echogenic liver compatible with fatty infiltration or hepatocellular disease. Jason Batista MD PE at Discharge Lower extremity dry sloughing with underlying changes of venous stasis, scrotum has +3 edema GENERAL: This is a well-nourished, well-developed patient, in no apparent distress. CARDIOVASCULAR: Regular rate and rhythm without murmurs, gallops, or rubs. RESPIRATORY: Clear to auscultation. Breath sounds equal bilaterally. No wheezes , rales, or rhonchi. GASTROINTESTINAL: Abdomen soft, non-tender, nondistended. Normal active bowel sounds MUSCULOSKELETAL: Extremities without clubbing, cyanosis, or edema. NEURO: Alert & Oriented x4 to person, place, time, situation. Moves all ext x4 Pt update on day of discharge Patient doing much better. Discharge plan discussed with patient and nephrology Hospital Course 07/17: Appreciate pulmonary consultation, continue O2 7 Medrol, DuoNeb, IV Lasix , strict monitoring FLAKO and weight, Change doxycycline to vancomycin for right lower extremity cellulitis and monitor improvement, consider ID consult Renal failure creatinine 1.7 continue monitoring FLAKO, consider nephrology consultation 07/18: Worsening scrotal edema with Creatinine still not improving along with BMP increased from 842-1368 Will increase his Lasix to 60 mg twice a day may need to add metolazone , switch to more potent diuretic versus drip I will consult nephrology, Continue monitoring I&O strictly with daily weighting, BMP and BNP 08-16 ADD METALOZONE 07/20: stable genital swelling; nephrology following likely from right sided heart failure as echo showing right sided severe systolic dysfunction 07/21: frail resp status, still needing increased O2, Cr not improving 07/22: O2 slightly improved 07/23 patient continues to improve, still with some scrotal edema but otherwise feels well and would like to go home Pt Condition on Discharge: Good Discharge Disposition: Discharge Home Discharge Time: <= 30 minutes Discharge Instructions DIET: Follow Instructions for: Renal Failure Diet Activities you can perform: Regular-No Restrictions Follow up Referrals: Nephrology - 1 Week with mingo New Medications: Furosemide (Lasix) 80 Mg Tab 80 MG PO BID for edema, #60 TAB 0 Refills Metolazone (Metolazone) 2.5 Mg Tab 2.5 MG PO EVERY OTHER DAY for edema, #30 TAB 0 Refills Spironolactone (Aldactone) 25 Mg Tab 25 MG PO DAILY for edema, #31 TAB Continued Medications: Allopurinol (Allopurinol) 300 Mg Tab 150 MG PO HS for Gout, #30 TAB 0 Refills Aspirin (Aspirin) 81 Mg Chew 81 MG CHEW DAILY, TAB 0 Refills Folic Acid (Folic Acid) 1 Mg Tablet 1 MG PO HS Ipratropium-Albuterol Neb (Duoneb) 0.5-2.5 Mg/3 Ml Neb 1 NEBULE INH Q6HR NEB PRN for DYSPNEA, #120 NEBULE 0 Refills Levothyroxine (Levothyroxine) 50 Mcg Tab 50 MCG PO DAILY for Thyroid, #30 TAB 0 Refills Metoprolol Tartrate (Metoprolol Tartrate) 100 Mg Tab 100 MG PO DAILY, #30 TAB 0 Refills Multivitamin (Once Daily) 1 Each Tablet 1 TAB PO DAILY Discontinued Medications: Furosemide (Furosemide) 20 Mg Tab 20 MG PO BID, #60 TAB 0 Refills Amanda Stark MD Jul 24, 2017 11:56
[2017-07-24 12:00] VITALS: BP 107/73; PULSE 83; RESP 20; TEMP 97; O2SAT 93
[2017-07-24] MEDS ORDERED: WALKER/EXTENDED1 MIS (12:10)
[2017-07-24] MEDS ORDERED: OXYGENDME NAS.CANULA (12:10)
--- NOTE | 2017-07-24 13:38 | HHI.NPPN ---
Subjective General Problems: Edema Renal Failure: Chronic, Acute, Stage III Interval History Good diuresis. Renal function has improved. Edema has improved, scrotal edema persists, although it also has improved. Potential discharge today. Discussed with Dr. Stark. Review of Systems General Constitutional: Fatigue Cardiovascular Cardiac: Edema Skin Skin: Skin Rash Objective Data Data 07/24/17 07/25/17 19:00 07:00 Output Total 550 ml Balance -550 ml Output Urine Total 550 ml Vital Signs Date Time Temp Pulse Resp B/P (MAP) Pulse Ox O2 Delivery O2 Flow Rate FiO2 07/24/17 12:00 97.0 83 20 107/73 (84) 93 07/24/17 08:00 96.8 68 20 107/68 (81) 92 07/24/17 07:48 97 Nasal Cannula 3.50 07/24/17 04:06 97.9 73 18 115/72 (86) 94 07/24/17 00:07 98.1 69 20 104/63 (77) 91 07/23/17 20:21 92 Nasal Cannula 3.50 07/23/17 20:18 98.0 66 18 114/71 (85) 90 07/23/17 16:00 96.4 64 20 104/71 (82) 90 -: 07/20/17 0650 07/24/17 0700 Physical Exam General Appearance: Well Developed, No Acute Distress, Comfortable Throat Throat Exam: Oral Mucosa [place] & Moist Pulmonary Resp Exam: No Distress, Crackles Cardiology CV Exam: Regular, Normal Sinus Rhythm Gastrointestinal/Abdomen GI Exam: Soft, Non-Tender, Distended Musculoskeletal MS Exam: Joints Intact, Normal Gait, Normal Tone, Good Strength Integumentary Skin Exam: Warm, Dry, Intact, Lesion(s) Extremeties Extremities Exam: Pedal Pulses Palpable, Pitting Edema, Dependent Edema Neurologic Neuro Exam: Alert, Awake, Oriented, Speech Clear, Moving All Extremities Psychiatric Psych Exam: Appropriate Responses Assessment/Plan Discussed Condition With: Patient Assessment Summary: ELOINA/Acute Renal Failure, CHF, Hypertension Problem List: (1) Acute kidney injury superimposed on CKD ICD Codes: S37.009A - Unspecified injury of unspecified kidney, initial encounter; N18.9 - Chronic kidney disease, unspecified Status: Acute Plan: Baseline creainine 1.3 ELOINA from CHF exacerbation, with increased renal vein pressure. Also was hypotensive on arrival, may have suffered hypoperfusion injury Improving fluid overload Excellent response to diuresis: regimen consists of Lasix 80 mg BID IV, Zaroxolyn 5 mg BID, Spironolactone 25 mg daily Renal function is stable. He can be discharged on Lasix 80 mg PO BID, Spironolactone 25 mg PO daily and Zaroxolyn three times/week. (2) Hypertension ICD Codes: I10 - Essential (primary) hypertension Status: Acute Plan: BP improved On metoprolol, furosemide, Zaroxolyn, and spironolactone Off Amlodipine due to lower extremity edema Continue and titrate as needed. (3) Acute exacerbation of CHF (congestive heart failure) ICD Codes: I50.9 - Heart failure, unspecified Plan: Diuresis as above Low salt diet Fluid restriction (4) COPD with acute exacerbation ICD Codes: J44.1 - Chronic obstructive pulmonary disease with (acute) exacerbation Plan: On prednisone, oxygen, nebs Serum CO2 improved (5) Cellulitis of right leg ICD Codes: L03.115 - Cellulitis of right lower limb Status: Acute Plan: Appears chronic, off vancomycin IV No acute signs of infection, afebrile, no leukocytosis Needs wound care to right leg. Problem Qualifiers (1) Hypertension: Qualified Codes: I10 - Essential (primary) hypertension (2) Acute exacerbation of CHF (congestive heart failure): Qualified Codes: I50.33 - Acute on chronic diastolic (congestive) heart failure Amando Webber MD Jul 24, 2017 13:38
== END 2017-07-24 15:12 | disposition home or self-care (01) | DRG 291 ==
LOC: PHED 16:09 → PHEDA 20:38 → PHICU 22:13 → PH3A 07-19 19:06
PROVIDERS: ADMIT Hospitalist; ATTEND Hospitalist
PROC: 5A09357 Assistance with Respiratory Ventilation, Less than 24 Consecutive Hours, Continuous Positive Airway Pressure (ICD-10-PCS; principal; 2017-07-15)
DX: I50.33 Acute on chronic diastolic (congestive) heart failure (principal); J96.21 Acute and chronic respiratory failure with hypoxia; N17.9 Acute kidney failure, unspecified; I95.9 Hypotension, unspecified; I27.20 Pulmonary hypertension, unspecified; J44.1 Chronic obstructive pulmonary disease with (acute) exacerbation; K74.60 Unspecified cirrhosis of liver; L03.115 Cellulitis of right lower limb; Z99.81 Dependence on supplemental oxygen; I13.0 Hypertensive heart and chronic kidney disease with heart failure and stage 1 through stage 4 chronic kidney disease, or unspecified chronic kidney disease; I48.2 Chronic atrial fibrillation; K70.9 Alcoholic liver disease, unspecified; N18.3 Chronic kidney disease, stage 3 (moderate); E78.00 Pure hypercholesterolemia, unspecified; M19.90 Unspecified osteoarthritis, unspecified site; M10.9 Gout, unspecified; E07.9 Disorder of thyroid, unspecified; E03.9 Hypothyroidism, unspecified; E66.9 Obesity, unspecified; K21.9 Gastro-esophageal reflux disease without esophagitis; N50.89 Other specified disorders of the male genital organs; R60.0 Localized edema; I73.9 Peripheral vascular disease, unspecified; G47.33 Obstructive sleep apnea (adult) (pediatric); Z68.28 Body mass index [BMI] 28.0-28.9, adult; Z87.891 Personal history of nicotine dependence; Z79.82 Long term (current) use of aspirin; Z79.899 Other long term (current) drug therapy
CPT/HCPCS: 36600; 71045; 71046; 76775; 80048; 80053; 80069; 80202; 81001; 82550; 82805; 83036; 83735; 83880; 84100; 84439; 84443; 84484; 85025; 85610; 85652; 85730; 86140; 87040; 87641; 87804; 93005; 93306; 94002; 94003; 94150; 94640; 94664; 96374; J1644; J1940; J2270; J2920; J3370; J7040; J7512; P9047

== ENCOUNTER 2017-08-13 16:00 | Inpatient (IN) | payer MEDICARE ==
[~2017-08-13] VITALS: Ht 188 cm; Wt 85.3 kg
[~2017-08-13 16:00] MED LIST changes: -ALLO100T PO; +ALLO300T2 PO; -AMLO2.5T PO; +ASPI-516 CHEW; -ASPI81TA82 PO; -FERR324T4 PO; -FOLI1TAB PO; +FOLI1TAB6 PO; +FURO1TAB61 PO; -FURO1TAB93 PO; +IPRASOL INH; -LEVO.05 PO; +LEVO50TA4 PO; +METO2.5T PO; -MULT-65 PO; +ONCETAB7 PO; +OXYGENDME NAS.CANULA; +SPIR25 PO; +WALKER/EXTENDED1 MIS; -Z.0.OXYGENDME NC
[2017-08-13 17:05] VITALS: BP 77/46; PULSE 89; RESP 26; TEMP 97.9; O2SAT 96
[2017-08-13 17:13] VITALS: BP 119/66; PULSE 93; RESP 18; O2SAT 97
[2017-08-13 17:26] VITALS: BP 99/70; PULSE 98; RESP 18; O2SAT 98
--- NOTE | 2017-08-13 17:37 | PD ---
HPI Chief Complaint: General Weakness Time Seen by Provider: 17:20 Travel History International Travel<30 days: No Contact w/Intl Traveler<30days: No Traveled to known affect area: No History of Present Illness HPI 71yo M with PMH of CHF, HLD, chronic afib, COPD on home O2, HTN, hypothyroidism , CKD, alcoholic liver disease present to the ED with c/o generalized weakness and sob for a few days. Pt was just admitted to ICU on BIPAP for CHF and COPD exacerbation on 07/15/17-07/24/17. Pt said he has been decreasing the furosemide to 20mg BID for last 3 days because of low blood pressure. Has some pain in left upper chest. Denies any fever, n/v, abdominal pain, focal weakness or numbness. PFSH Past Medical History Hx Anticoagulant Therapy: Yes (325 MG ASA DAILY) Arthritis: Yes Asthma: No Autoimmune Disease: No Blood Disorders: No Heart Rhythm Problems: No Cancer: No Cardiovascular Problems: Yes (CHF/NONRHEUMATIC TRICUSPID VALVE INSUFFCIENCY) High Cholesterol: Yes Chemotherapy: No Chest Pain: No Congestive Heart Failure: Yes COPD: Yes Diabetes: No Diminished Hearing: No Endocrine: No Gastrointestinal Disorders: Yes (Liver failure) Glaucoma: No Gout: Yes Genitourinary: No Hypertension: Yes Immune Disorder: No Implanted Vascular Access Dvce: No Musculoskeletal: Yes Neurologic: No Psychiatric: No Reproductive: No Respiratory: Yes (COPD) Immunizations Current: Yes Myocardial Infarction: No Radiation Therapy: No Seizures: Yes Sleep Apnea: No Thyroid Disease: Yes (on synthroid) ?: Not Past Surgical History Abdominal Surgery: Yes (50 YEARS AGO APPENDECTOMY) AICD: No Appendectomy: Yes (9 yrs old) Cardiac Surgery: No Ear Surgery: No Endocrine Surgery: No Eye Surgery: No Genitourinary Surgery: No Gynecologic Surgery: No Insulin Pump: No Joint Replacement: No Neurologic Surgery: No Oral Surgery: No Pacemaker: No Thoracic Surgery: No Other Surgery: Yes Social History Alcohol Use: No (prior heavy drinker, quit in 2016) Tobacco Use: No Substance Use: No Allergies-Medications (Allergen,Severity, Reaction): Coded Allergies: cefuroxime (Unverified Allergy, Intermediate, hives, 07/15/17) ciprofloxacin (Unverified Allergy, Intermediate, HIVES, 07/15/17) Reported Meds & Prescriptions Reported Meds & Active Scripts Active Oxygen (O2) Device Liter BK.CANULA CONTINUOUS Oxygen Concentrator Portable Gaseous 3 L/min via Nasal Canula Continuous For 99 months Walker/Extended Frame (Device) 1 Mis Mis Ea .XX DIRECTED Lasix (Furosemide) 80 Mg Tab 80 Mg PO BID Reported Levothyroxine (Levothyroxine Sodium) 50 Mcg Tab 50 Mcg PO DAILY Folic Acid 1 Mg Tablet 1 Mg PO HS Allopurinol 300 Mg Tab 150 Mg PO HS Aspirin 81 Mg Chew 81 Mg CHEW DAILY Duoneb (Ipratropium-Albuterol Neb) 0.5-2.5 Mg/3 Ml Neb 1 Nebule INH Q6HR NEB PRN Oxygen (O2) Device Liter BK.CANULA CONTINUOUS Oxygen Concentrator Portable Gaseous 2 L/min via Nasal Canula Continuous For 99 months Review of Systems Except as stated in HPI: all other systems reviewed are Neg Physical Exam Narrative GENERAL: 71yo M in mild distress. SKIN: Focused skin assessment warm/dry. HEAD: Atraumatic. Normocephalic. EYES: Pupils equal and round. No scleral icterus. No injection or drainage. ENT: No nasal bleeding or discharge. Mucous membranes pink and moist. NECK: Trachea midline. No JVD. CARDIOVASCULAR: Regular rate and rhythm. No murmur appreciated. RESPIRATORY: No accessory muscle use. No wheezing. Crackles in bilateral lower lungs. GASTROINTESTINAL: Abdomen soft, non-tender, nondistended. MUSCULOSKELETAL: No obvious deformities. No clubbing. No cyanosis. No edema. NEUROLOGICAL: Awake and alert. No obvious cranial nerve deficits. Motor grossly within normal limits. Normal speech. PSYCHIATRIC: Appropriate mood and affect; insight and judgment normal. Data Data Last Documented VS Vital Signs Date Time Temp Pulse Resp B/P (MAP) Pulse Ox O2 Delivery O2 Flow Rate FiO2 08/13/17 18:11 102 18 100/78 (85) 97 Nasal Cannula 2.00 08/13/17 17:05 97.9 Orders Orders Electrocardiogram (08/13/17 17:22) Complete Blood Count With Diff (08/13/17 17:22) Comprehensive Metabolic Panel (08/13/17 17:22) Iv Access Insert/Monitor (08/13/17 17:22) B-Type Natriuretic Peptide (08/13/17 17:32) Prothrombin Time / Inr (Pt) (08/13/17 17:32) Act Partial Throm Time (Ptt) (08/13/17 17:32) Magnesium (Mg) (08/13/17 17:34) Chest, Single Ap (08/13/17 ) Troponin I (08/13/17 17:25) Admit Order (Ed Use Only) (08/13/17 19:00) Labs Laboratory Tests Test 08/13/17 17:25 08/13/17 18:03 White Blood Count 11.1 TH/MM3 Red Blood Count 4.91 MIL/MM3 Hemoglobin 15.3 GM/DL Hematocrit 45.2 % Mean Corpuscular Volume 92.1 FL Mean Corpuscular Hemoglobin 31.2 PG Mean Corpuscular Hemoglobin Concent 33.9 % Red Cell Distribution Width 16.1 % Platelet Count 217 TH/MM3 Mean Platelet Volume 9.2 FL Neutrophils (%) (Auto) 85.8 % Lymphocytes (%) (Auto) 4.7 % Monocytes (%) (Auto) 8.3 % Eosinophils (%) (Auto) 1.1 % Basophils (%) (Auto) 0.1 % Neutrophils # (Auto) 9.5 TH/MM3 Lymphocytes # (Auto) 0.5 TH/MM3 Monocytes # (Auto) 0.9 TH/MM3 Eosinophils # (Auto) 0.1 TH/MM3 Basophils # (Auto) 0.0 TH/MM3 CBC Comment AUTO DIFF Differential Comment AUTO DIFF CONFIRMED Platelet Estimate NORMAL Platelet Morphology Comment NORMAL Blood Urea Nitrogen 92 MG/DL Creatinine 3.06 MG/DL Random Glucose 104 MG/DL Total Protein 7.6 GM/DL Albumin 2.7 GM/DL Calcium Level 9.5 MG/DL Alkaline Phosphatase 95 U/L Aspartate Amino Transf (AST/SGOT) 13 U/L Alanine Aminotransferase (ALT/SGPT) 14 U/L Total Bilirubin 1.5 MG/DL Sodium Level 126 MEQ/L Potassium Level 5.2 MEQ/L Chloride Level 82 MEQ/L Carbon Dioxide Level 32.3 MEQ/L Anion Gap 12 MEQ/L Estimat Glomerular Filtration Rate 20 ML/MIN Troponin I LESS THAN 0.02 NG/ML Prothrombin Time 12.9 SEC Prothromb Time International Ratio 1.3 RATIO Activated Partial Thromboplast Time 31.7 SEC B-Type Natriuretic Peptide 1597 PG/ML MDM Medical Decision Making Medical Screen Exam Complete: Yes Emergency Medical Condition: Yes Interpretation(s) EKG: Afib at 97bpm. RBBB. ST depression V2, V3, V4. Differential Diagnosis Dehydration vs. electrolyte abnormalities vs. CHF exacerbation Narrative Course 71yo M here with generalized weakness and sob for a few days. Pt is saturating at 94-95% on 2L NC. Pt does have positive orthostatic hypotension and is receiving 500cc of NS IVF very slowly. BP drops to 70s/40s when he stands up. No wheezing on exam. Labs reviewed, WBC 11.1. H/H normal. Hyponatremia at 126. BUN/creatinine elevated at 92/3.06, this was acutely increased from 80/ 2.0 on 07/24/17. K 5.2. Bilirubin mildly elevated at 1.5, likely secondary to dehydration. Troponin negative. CXR showed cardiomegaly with basal airspace disease improved from Jul 20. No significant effusion. Pt said he lose significant weight from 250 to 188 since end of June when he was admitted. Pt still feels very weak. Will admit for dehydration and acute on chronic kidney injury. Discussed with Dr. Urbano and accepted to her service. Diagnosis Primary Impression: Dehydration Additional Impressions: Hyponatremia Acute on chronic kidney failure Qualified Codes: N17.9 - Acute kidney failure, unspecified; N18.9 - Chronic kidney disease, unspecified Admitting Information Admitting Physician Requests: Sherri Muñoz DO Aug 13, 2017 17:37
[2017-08-13 18:11] VITALS: BP 100/78; PULSE 102; RESP 18; O2SAT 97
[2017-08-13 18:14] LABS: AUTOMATED NEUTROPHIL # 9.5 TH/MM3 (1.8-7.7); BASOPHIL % 0.1 % (0.0-2.0); EOSINOPHIL # 0.1 TH/MM3 (0-0.4); EOSINOPHIL % 1.1 % (0.0-4.0); HEMATOCRIT 45.2 % (39.0-51.0); HEMOGLOBIN 15.3 GM/DL (13.0-17.0); LYMPH % 4.7 % (9.0-44.0); LYMPHOCYTE # 0.5 TH/MM3 (1.0-4.8); MEAN CELL VOLUME 92.1 FL (80.0-100.0); MEAN CORPUSCULAR HEMOGLOBIN 31.2 PG (27.0-34.0); MEAN CORPUSCULAR HGB CONC 33.9 % (32.0-36.0); MEAN PLATELET VOLUME 9.2 FL (7.0-11.0); MONO % 8.3 % (0.0-8.0); MONOCYTE # 0.9 TH/MM3 (0-0.9); NEUT % 85.8 % (16.0-70.0); PLATELET COUNT 217 TH/MM3 (150-450); RED BLOOD COUNT 4.91 MIL/MM3 (4.50-5.90); RED CELL DISTRIBUTION WIDTH 16.1 % (11.6-17.2); WHITE BLOOD COUNT 11.1 TH/MM3 (4.0-11.0)
--- NOTE | 2017-08-13 18:18 | RADRPT ---
EXAM DATE/TIME: 08/13/2017 17:39 [facility] COMPARISON: CHEST SINGLE AP, July 20, 2017, 6:11. INDICATIONS : Shortness of breath, general weakness and fluid retention. MEDICAL HISTORY : Chronic obstructive pulmonary disease. Atrial fibrillation. SURGICAL HISTORY : None. ENCOUNTER: Initial ACUITY: 1 day PAIN SCORE: 0/10 LOCATION: Bilateral chest FINDINGS: A single view of the chest demonstrates cardiomegaly. Basilar airspace disease improved from July 20. No effusion. No pneumothorax. CONCLUSION: 1. Cardiomegaly with basal airspace disease improved from July 20. No significant effusion. David Conklin MD on August 13, 2017 at 18:14 Board Certified Radiologist. This report was verified electronically.
[2017-08-13 18:31] LABS: ALBUMIN 2.7 GM/DL (3.4-5.0); AST (GOT) 13 U/L (15-37); BICARBONATE 32.3 MEQ/L (21.0-32.0); BLOOD UREA NITROGEN 92 MG/DL (7-18); CALCIUM 9.5 MG/DL (8.5-10.1); CHLORIDE 82 MEQ/L (98-107); CREATININE 3.06 MG/DL (0.60-1.30); GLOMERULAR FILTRATION RATE 20 ML/MIN (>89); GLUCOSE,RANDOM 104 MG/DL (74-106); SODIUM (NA) 126 MEQ/L (136-145)
[2017-08-13 18:35] LABS: ALKALINE PHOSPHATASE 95 U/L (45-117); ALT (GPT) 14 U/L (12-78); TOTAL BILIRUBIN ADULT 1.5 MG/DL (0.2-1.0); TOTAL PROTEIN 7.6 GM/DL (6.4-8.2)
[2017-08-13 18:43] LABS: INTERNATIONAL NORMALIZED RATIO 1.3 RATIO; PROTHROMBIN TIME - PATIENT 12.9 SEC (9.8-11.6)
[2017-08-13 18:53] LABS: TROPONIN I LESS THAN 0.02 NG/ML (0.02-0.05)
--- NOTE | 2017-08-13 19:04 | HHI.HP ---
HPI Service [facility] Primary Care Physician Bill Culp MD Admission Diagnosis Dehydration, acute on chronic kidney failure, hyponatremia Diagnoses: (1) Generalized weakness Diagnosis: Principal (2) Hypotension Diagnosis: Principal (3) CHF (congestive heart failure) Diagnosis: Principal (4) ELOINA (acute kidney injury) Diagnosis: Principal (5) A-fib Diagnosis: Principal Travel History International Travel<30 Days: No Contact w/Intl Traveler <30 Da: No Traveled to Known Affected Are: No History of Present Illness This is a 71-year-old male w/ a PMH of HTN, CHF (Echo 07/16/17 w/ EF 55-60%), COPD, O2 Dependent, A-fib, CKD and H/o Alcoholic Liver Disease who was brought to the ER by EMS secondary to generalized weakness and hypotension. Family at bedside providing some history. Recent admit 07/15-07/24/17 w/ CHF/COPD/ Respiratory Failure requiring BIPAP and ELOINA, s/p eval by Nephrology w/ diuretics increased to Lasix 80mg bid in addition to Metolazone and Aldactone. Daughter states pt has been having persistent hypotension at home since discharge w/ BP 80-90's systolic, told by Nephrology to decrease diuretic as needed, states she decreased Lasix to 20mg bid and is now off Metolazone, Aldactone and Metoprolol for the last 3 days. Denies fever, chills, SOB or chest pain. On arrival, BP 77/46, HR 89, O2 sat 96% on 4L NC, Afebrile. S/p bolus in ER w/ improvement in BP. WBC 11.1. Creatinine 3.06, previously 2.01 on 07/24/17. Troponin negative. BNP 1597. Na 126. K+ 5.2. CXR with cardiomegaly, improved airspace disease from June, no significant effusion. Review of Systems Except as stated in HPI: all other systems reviewed are Neg ROS: 14 point review of systems otherwise negative. Past Family Social History Past Medical History PMH: HTN, CHF (Echo 07/16/17 w/ EF 55-60%), COPD, O2 Dependent, A-fib, CKD and H /o Alcoholic Liver Disease Past Surgical History PAST SURGICAL HISTORY: Appendectomy Allergies: Coded Allergies: cefuroxime (Unverified Allergy, Intermediate, hives, 07/15/17) ciprofloxacin (Unverified Allergy, Intermediate, HIVES, 07/15/17) Family History PAST FAMILY HISTORY: Reviewed. No h/o DM or CAD Social History PAST SOCIAL HISTORY: History of alcohol abuse, quit 2015. Negative for tobacco or drugs. Physical Exam Vital Signs Vital Signs Date Time Temp Pulse Resp B/P (MAP) Pulse Ox O2 Delivery O2 Flow Rate FiO2 08/13/17 18:11 102 18 100/78 (85) 97 Nasal Cannula 2.00 08/13/17 17:26 98 18 99/70 (80) 98 Nasal Cannula 3.00 08/13/17 17:16 100 24 97 Nasal Cannula 4.00 08/13/17 17:13 93 18 119/66 (83) 97 Nasal Cannula 4.00 08/13/17 17:05 97.9 89 26 77/46 (56) 96 Nasal Cannula 4.00 Physical Exam PE: GENERAL: Very pleasant middle-aged white male in no acute distress. Family at bedside. HEENT: PERRLA, EOMI. No scleral icterus or conjunctival pallor. No lid lag or facial droop. CARDIOVASCULAR: Irregularly irregular, in A. fib, rate controlled. No obvious murmurs to auscultation. No chest tenderness to palpation. RESPIRATORY: No obvious rhonchi or wheezing. Clear to auscultation. Breath sounds equal bilaterally. GASTROINTESTINAL: Abdomen soft, non-tender, nondistended. BS normal. MUSCULOSKELETAL: Extremities without clubbing, cyanosis, or edema. No obvious deformities. NEUROLOGICAL: Awake, alert and oriented x4. No focal neurologic deficits. Moving both upper and lower extremities spontaneously. Laboratory Laboratory Tests Test 08/13/17 17:25 08/13/17 18:03 White Blood Count 11.1 Red Blood Count 4.91 Hemoglobin 15.3 Hematocrit 45.2 Mean Corpuscular Volume 92.1 Mean Corpuscular Hemoglobin 31.2 Mean Corpuscular Hemoglobin Concent 33.9 Red Cell Distribution Width 16.1 Platelet Count 217 Mean Platelet Volume 9.2 Neutrophils (%) (Auto) 85.8 Lymphocytes (%) (Auto) 4.7 Monocytes (%) (Auto) 8.3 Eosinophils (%) (Auto) 1.1 Basophils (%) (Auto) 0.1 Neutrophils # (Auto) 9.5 Lymphocytes # (Auto) 0.5 Monocytes # (Auto) 0.9 Eosinophils # (Auto) 0.1 Basophils # (Auto) 0.0 CBC Comment AUTO DIFF Blood Urea Nitrogen 92 Creatinine 3.06 Random Glucose 104 Total Protein 7.6 Albumin 2.7 Calcium Level 9.5 Alkaline Phosphatase 95 Aspartate Amino Transf (AST/SGOT) 13 Alanine Aminotransferase (ALT/SGPT) 14 Total Bilirubin 1.5 Sodium Level 126 Potassium Level 5.2 Chloride Level 82 Carbon Dioxide Level 32.3 Anion Gap 12 Estimat Glomerular Filtration Rate 20 Troponin I LESS THAN 0.02 Prothrombin Time 12.9 Prothromb Time International Ratio 1.3 Activated Partial Thromboplast Time 31.7 Result Diagram: 08/13/17 17208/13/171724 Caprini VTE Risk Assessment Caprini VTE Risk Assessment: Mod/High Risk (score >= 2) Caprini Risk Assessment Model Point Value = 1 Point Value = 2 Point Value = 3 Point Value = 5 Age 41-60 Minor surgery BMI > 25 kg/m2 Swollen legs Varicose veins or History of unexplained or recurrent spontaneous Oral contraceptives or hormone replacement Sepsis (< 1 month) Serious lung disease, including pneumonia (< 1 month) Abnormal pulmonary function Acute myocardial infarction Congestive heart failure (< 1 month) History of inflammatory bowel disease Medical patient at bed rest Age 61-74 Arthroscopic surgery Major open surgery (> 45 min) Laparoscopic surgery (> 45 min) Malignancy Confined to bed (> 72 hours) Immobilizing plaster cast Central venous access Age >= 75 History of VTE Family history of VTE Factor V Leiden Prothrombin [id number] Lupus anticoagulant Anticardiolipin antibodies Elevated serum homocysteine Heparin-induced thrombocytopenia Other congenital or acquired thrombophilia Stroke (< 1 month) Elective arthroplasty Hip, pelvis, or leg fracture Acute spinal cord injury (< 1 month) Prophylaxis Regimen Total Risk Factor Score Risk Level Prophylaxis Regimen 0-1 Low Early ambulation 2 Moderate Order ONE of the following: *Sequential Compression Device (SCD) *Heparin 5000 units SQ BID 3-4 Higher Order ONE of the following medications: *Heparin 5000 units SQ TID *Enoxaparin/Lovenox 40 mg SQ daily (WT < 150 kg, CrCl > 30 mL/min) *Enoxaparin/Lovenox 30 mg SQ daily (WT < 150 kg, CrCl > 10-29 mL/min) *Enoxaparin/Lovenox 30 mg SQ BID (WT < 150 kg, CrCl > 30 mL/min) AND/OR *Sequential Compression Device (SCD) 5 or more Highest Order ONE of the following medications: *Heparin 5000 units SQ TID (Preferred with Epidurals) *Enoxaparin/Lovenox 40 mg SQ daily (WT < 150 kg, CrCl > 30 mL/min) *Enoxaparin/Lovenox 30 mg SQ daily (WT < 150 kg, CrCl > 10-29 mL/min) *Enoxaparin/Lovenox 30 mg SQ BID (WT < 150 kg, CrCl > 30 mL/min) AND *Sequential Compression Device (SCD) Assessment and Plan Problem List: (1) Generalized weakness ICD Code: R53.1 - Weakness (2) Hypotension ICD Code: I95.9 - Hypotension, unspecified (3) CHF (congestive heart failure) ICD Code: I50.9 - Heart failure, unspecified Status: Acute (4) A-fib ICD Code: I48.91 - Unspecified atrial fibrillation (5) ELOINA (acute kidney injury) ICD Code: N17.9 - Acute kidney failure, unspecified Assessment and Plan A/P: 1. Generalized Weakness: reports progressive weakness, unable to walk at this time. Likely secondary to hypotension/dehydration. PT for eval/tx. Case Management for assistance w/ d/c planning. 2. Hypotension: BP 80-90-'s systolic, likely secondary to over-diuresis. Monitor I/O. Hold BP meds. Monitor BP closely. Follows w/ Dr. Webber w/ Nephrology and Dr. Paris w/ Cardiology, will consult for further assistance regarding diuresis. Hold Lasix for now. Aldactone/Metolazone stopped 3 days ago. Discussed w/ patient and family that if hypotension persists, may need to be escalated to ICU for central line/pressors, pt and family are in agreement with this. 3. CHF: Chronic. Diastolic. Echo 07/16/17 w/ EF 55-60%, CXR w/ no significant effusion, images reviewed by me, no edema on exam. Monitor I/O, hold diuretics for now. 4. ELOINA: Acute on Chronic. Creatinine 3.06, previously 2.0 on 07/24/17. Check U /a to eval for underlying UTI. 5. A-fib: Chronic. Rate controlled. Hold Metoprolol in light of hypotension , monitor on telemetry. 6. DVT Prophylaxis: Heparin sq 7. Social work for d/c planning as needed. 8. Case discussed w/ ER physician at length, labs/records/imaging reviewed by me. Kalie Urbano MD Aug 13, 2017 19:04
[2017-08-13] MEDS ORDERED: SENNOSIDES 8.6 MG TAB PO PRN (19:15)
[2017-08-13] MEDS ORDERED: SODIUM CHLORIDE 0.9% FLUSH 10 ML FLUSH IV FLUSH PRN (19:15)
[2017-08-13] MEDS ORDERED: MORPHINE SULFATE 2 MG/ML SYRINGE IV PUSH PRN (19:15)
[2017-08-13] MEDS ORDERED: MAGNESIUM HYDROXIDE SUSP 30 ML CUP PO PRN (19:15)
[2017-08-13] MEDS ORDERED: BISACODYL 10 MG SUPP RECTAL PRN (19:15)
[2017-08-13] MEDS ORDERED: LACTULOSE SYRUP 20 GM/30 ML CUP PO PRN (19:15)
[2017-08-13] MEDS ORDERED: ONDANSETRON HCL 4 MG/2 ML VIAL IVP PRN (19:15)
[2017-08-13] MEDS ORDERED: DEXT 5%-NACL 0.9% 1000 ML INJ 500 ML IV ONE (19:30)
[2017-08-13 20:37] VITALS: O2SAT 93
[2017-08-13] MEDS: SODIUM CHLORIDE 0.9% FLUSH 10 ML FLUSH IV FLUSH SCH (21:00)
[2017-08-13] MEDS: FOLIC ACID 1 MG TAB PO SCH (21:45)
[2017-08-13] MEDS: DOCUSATE SODIUM 50 MG/SENNA 8.6 MG TAB PO SCH (21:45)
[2017-08-13 21:49] VITALS: BP 96/63; PULSE 92; RESP 20; O2SAT 96
[2017-08-13 23:45] LABS: BILIRUBIN, URINE NEG (NEG); BLOOD, URINE NEG (NEG); GLUCOSE,URINE NEG (NEG); KETONE, URINE NEG (NEG); NITRITE,URINE NEG (NEG); URINE COLOR YELLOW (YELLW/STRAW); URINE LEUKOCYTE ESTERASE NEG (NEG)
[2017-08-14] VITALS (20 sets, daily range): BP systolic 93–125; BP diastolic 55–79; PULSE 64–108; RESP 16–20; TEMP 97.1–98.4; O2SAT 90–98
[2017-08-14] MEDS: LEVOTHYROXINE SODIUM 50 MCG TAB PO SCH (07:09)
[2017-08-14] MEDS: RESP: ALBUTEROL 2.5 MG/IPRATROPIUM 0.5 MG NEB (PRN) NEB (08:22)
[2017-08-14] MEDS ORDERED: FUROSEMIDE 40 MG/4 ML VIAL IV PUSH SCH (09:00)
[2017-08-14] MEDS: SODIUM CHLORIDE 0.9% FLUSH 10 ML FLUSH IV FLUSH SCH ×2 (09:00→21:04)
[2017-08-14] MEDS: DOCUSATE SODIUM 50 MG/SENNA 8.6 MG TAB PO SCH ×2 (09:57→21:00)
[2017-08-14] MEDS: ASPIRIN 81 MG CHEW TAB CHEW SCH (09:57)
[2017-08-14] MEDS: HEPARIN SODIUM - SQ 10,000 UNITS/ML VIAL SQ SCH ×2 (09:58→21:06)
[2017-08-14] MEDS: ACETAMINOPHEN/HYDROcodone 325 MG/5 MG TAB PO PRN ×2 (09:58→21:06)
--- NOTE | 2017-08-14 10:06 | MB ---
cc: Valdo Sinha MD DATE: 08/14/2017 REASON FOR CONSULTATION: Hypotension with history of congestive heart failure. HISTORY OF PRESENT ILLNESS: The patient is a pleasant 71-year-old gentleman who sees my partner, Dr. Paris with a history of normal ejection fraction, congestive heart failure by recent echocardiogram as well as oxygen dependent COPD, atrial fibrillation, chronic kidney disease and alcoholic liver disease, who presented with generalized weakness and hypotension. Apparently, he was recently admitted and his diuretics were increased to Lasix 80 b.i.d. as well as metolazone and Aldactone. However, since discharge, he had been becoming progressively more hypotensive with associated weakness, so his diuretics were decreased to only Lasix 20 mg without metolazone and Aldactone. However, he did not have significant improvement, so he presented to the emergency department where he was still hypotensive and received fluids. Currently, he says he feels weak and had minimal left lateral chest discomfort that he says felt like indigestion, but no convincing angina. No syncopal episodes, just mainly generalized weakness. PAST MEDICAL HISTORY: As above. CURRENT MEDICATIONS: 1. Aspirin 81 mg daily. 2. Synthroid. 3. Folate. ALLERGIES: CEFUROXIME. CIPROFLOXACIN. PHYSICAL EXAMINATION: VITAL SIGNS: Afebrile, pulse 98, respiratory rate 20, BP 100/63, saturating 91 on 5 liters. GENERAL: Pleasant, frail, elderly gentleman in no distress. NECK: No JVD. LUNGS: Very decreased breath sounds in all jacobson. CARDIOVASCULAR: Regular irregular rhythm with a slightly rapid rate. No significant murmurs appreciated. ABDOMEN: Benign. EXTREMITIES: No edema. LABORATORY DATA: White count 11.1, hematocrit 45.2, platelets 217. Sodium 126 down from 134, potassium 5.2, chloride 82, bicarbonate 32, BUN 92, creatinine 3.06. Troponins are negative. BNP is 1597. EKG shows atrial fibrillation with a mildly rapid rate. IMPRESSION AND RECOMMENDATIONS: 1. Congestive heart failure. The patient appears to be dry despite his somewhat elevated brain natriuretic peptide (probably a false positive due to his poor renal function). I agree with oral hydration and holding his diuretics for now as well as physical therapy. Likely some form of diuretics will need to be reintroduced before discharge. 2. Atrial fibrillation. The patient had atrial fibrillation, perhaps new last admission. I do not at this point see a discussion regarding anticoagulation, but at this point he does appear quite frail and I think his fall risk is exceedingly high, so at this point I will not start anticoagulation and this can be re-evaluated with his primary supervisor [employer], Dr. Paris, as an outpatient. His stroke risk certainly is high, so this is an issue that needs careful consideration, but again for now I am going to err on the side and not introducing another medication which can be done by his primary supervisor [employer], Dr. Lassiter in. 3. Further recommendations based on his clinical course. Thank you again for the opportunity to participate in this patient's care. MD DEANN Romero/PARDEEP , 09:40 AM , 10:05 AM
[2017-08-14] MEDS: DILTIAZEM HCL 30 MG TAB PO SCH ×3 (12:27→23:31)
[2017-08-14 12:55] LABS: AUTOMATED NEUTROPHIL # 7.7 TH/MM3 (1.8-7.7); BASOPHIL % 0.3 % (0.0-2.0); EOSINOPHIL # 0.2 TH/MM3 (0-0.4); EOSINOPHIL % 1.9 % (0.0-4.0); HEMATOCRIT 39.2 % (39.0-51.0); HEMOGLOBIN 13.6 GM/DL (13.0-17.0); LYMPH % 7.9 % (9.0-44.0); LYMPHOCYTE # 0.8 TH/MM3 (1.0-4.8); MEAN CELL VOLUME 91.5 FL (80.0-100.0); MEAN CORPUSCULAR HEMOGLOBIN 31.8 PG (27.0-34.0); MEAN CORPUSCULAR HGB CONC 34.8 % (32.0-36.0); MEAN PLATELET VOLUME 8.6 FL (7.0-11.0); MONO % 10.5 % (0.0-8.0); NEUT % 79.4 % (16.0-70.0); PLATELET COUNT 221 TH/MM3 (150-450); RED BLOOD COUNT 4.29 MIL/MM3 (4.50-5.90); RED CELL DISTRIBUTION WIDTH 16.1 % (11.6-17.2); WHITE BLOOD COUNT 9.7 TH/MM3 (4.0-11.0)
--- NOTE | 2017-08-14 13:12 | PD.CONS ---
HPI Service Nephrology Consult Requested By Dr. Urbano Reason for Consult Acute renal failure and chronic kidney disease Primary Care Physician Bill Culp MD History of Present Illness Patient is a 71-year-old white male with history of acute on chronic kidney disease, congestive heart failure, COPD, peripheral edema, alcoholic liver disease, he was placed on Lasix 80 mg twice daily, Zaroxolyn, Aldactone followed with Dr. Webber and had diuresis his blood pressure dropped and he was told to decrease Lasix however his blood pressure did not improve and he felt weak and tired lethargic and came to the hospital. Review of Systems Constitutional: COMPLAINS OF: Fatigue, Dizziness Respiratory: COMPLAINS OF: Shortness of breath Musculoskeletal: COMPLAINS OF: Joint pain, Muscle aches, Stiffness Neurologic: COMPLAINS OF: Abnormal gait Past Family Social History Allergies: Coded Allergies: cefuroxime (Unverified Allergy, Intermediate, hives, 07/15/17) ciprofloxacin (Unverified Allergy, Intermediate, HIVES, 07/15/17) Past Medical History Chronic kidney disease Acute renal insufficiency Peripheral edema Alcoholic liver disease, cirrhosis COPD Congestive heart failure EF of 55% Hypertension Hypothyroidism Past Surgical History History of appendectomy Reported Medications Reported Meds & Active Scripts Active Oxygen (O2) Device Liter BK.CANULA CONTINUOUS Oxygen Concentrator Portable Gaseous 3 L/min via Nasal Canula Continuous For 99 months Walker/Extended Frame (Device) 1 Mis Mis Ea .XX DIRECTED Lasix (Furosemide) 80 Mg Tab 80 Mg PO BID Reported Levothyroxine (Levothyroxine Sodium) 50 Mcg Tab 50 Mcg PO DAILY Folic Acid 1 Mg Tablet 1 Mg PO HS Allopurinol 300 Mg Tab 150 Mg PO HS Aspirin 81 Mg Chew 81 Mg CHEW DAILY Duoneb (Ipratropium-Albuterol Neb) 0.5-2.5 Mg/3 Ml Neb 1 Nebule INH Q6HR NEB PRN Oxygen (O2) Device Liter BK.CANULA CONTINUOUS Oxygen Concentrator Portable Gaseous 2 L/min via Nasal Canula Continuous For 99 months Active Ordered Medications Current Medications Medications (Trade) Dose Ordered Sig/Jose Route Start Time Stop Time Status Last Admin (Duoneb Neb) 1 ampule Q4HR NEB PRN NEB 08/13/17 19:15 08/14/17 08:22 (NS Flush) 2 ml UNSCH PRN IV FLUSH 08/13/17 19:15 (NS Flush) 2 ml BID IV FLUSH 08/13/17 21:00 08/14/17 09:00 (Zofran Inj) 4 mg Q6H PRN IVP 08/13/17 19:15 (Heparin Inj) 5,000 units Q12H SQ 08/14/17 09:00 08/14/17 09:58 (Tylenol) 650 mg Q6H PRN PO 08/13/17 19:15 ([place] 5-325 Mg) 1 tab Q4H PRN PO 08/13/17 19:15 08/14/17 09:58 (Morphine Inj) 2 mg Q3H PRN IV PUSH 08/13/17 19:15 (Sharon-Colace) 1 tab BID PO 08/13/17 21:00 08/14/17 09:57 (Milk Of Magnesia Liq) 30 ml Q12H PRN PO 08/13/17 19:15 (Senokot) 17.2 mg Q12H PRN PO 08/13/17 19:15 (Dulcolax Supp) 10 mg DAILY PRN RECTAL 08/13/17 19:15 (Lactulose Liq) 30 ml DAILY PRN PO 08/13/17 19:15 (Aspirin Chew) 81 mg DAILY CHEW 08/14/17 09:00 08/14/17 09:57 (Folate) 1 mg HS PO 08/13/17 21:00 08/13/17 21:45 (Synthroid) 50 mcg DAILY@0600 PO 08/14/17 06:00 08/14/17 07:09 (Cardizem) 30 mg Q6HR PO 08/14/17 12:00 08/14/17 12:27 (Sodium Chloride) 1 gm TID PO 08/14/17 18:00 (Duoneb Neb) 1 ampule Q6HR WHILE AWAKE NEB NEB 08/14/17 20:00 Family History Noncontributory Social History History of smoking, heavy alcohol use in the past Physical Exam Vital Signs Vital Signs Date Time Temp Pulse Resp B/P (MAP) Pulse Ox O2 Delivery O2 Flow Rate FiO2 08/14/17 12:00 93 08/14/17 11:00 99 08/14/17 11:00 97.9 93 20 125/63 (83) 93 08/14/17 10:00 108 08/14/17 09:00 94 08/14/17 08:15 91 Nasal Cannula 5.00 08/14/17 08:00 102 08/14/17 07:45 98.4 98 20 100/63 (75) 98 08/14/17 05:00 100 08/14/17 05:00 102 20 112/79 (90) 90 08/14/17 02:04 92 16 93/63 (73) 94 Nasal Cannula 3.00 08/13/17 21:49 92 20 96/63 (74) 96 Nasal Cannula 4.00 08/13/17 20:37 93 Nasal Cannula 2.00 08/13/17 18:11 102 18 100/78 (85) 97 Nasal Cannula 2.00 08/13/17 17:26 98 18 99/70 (80) 98 Nasal Cannula 3.00 08/13/17 17:16 100 24 97 Nasal Cannula 4.00 08/13/17 17:13 93 18 119/66 (83) 97 Nasal Cannula 4.00 08/13/17 17:05 97.9 89 26 77/46 (56) 96 Nasal Cannula 4.00 Physical Exam GENERAL: Well-nourished, well-developed patient. SKIN: Warm and dry. HEAD: Normocephalic. EYES: No scleral icterus. No injection or drainage. NECK: Supple, trachea midline. No JVD or lymphadenopathy. CARDIOVASCULAR: Irregularly irregular. RESPIRATORY: Breath sounds diminished at bases GASTROINTESTINAL: Abdomen soft, non-tender, nondistended. EXTREMITIES: No cyanosis, 1+ edema. NEUROLOGICAL: Awake, alert, and oriented x 3. Non-focal. Laboratory Laboratory Tests Test 08/13/17 17:25 08/13/17 18:03 08/13/17 22:50 08/14/17 00:45 White Blood Count 11.1 Red Blood Count 4.91 Hemoglobin 15.3 Hematocrit 45.2 Mean Corpuscular Volume 92.1 Mean Corpuscular Hemoglobin 31.2 Mean Corpuscular Hemoglobin Concent 33.9 Red Cell Distribution Width 16.1 Platelet Count 217 Mean Platelet Volume 9.2 Neutrophils (%) (Auto) 85.8 Lymphocytes (%) (Auto) 4.7 Monocytes (%) (Auto) 8.3 Eosinophils (%) (Auto) 1.1 Basophils (%) (Auto) 0.1 Neutrophils # (Auto) 9.5 Lymphocytes # (Auto) 0.5 Monocytes # (Auto) 0.9 Eosinophils # (Auto) 0.1 Basophils # (Auto) 0.0 CBC Comment AUTO DIFF Differential Comment AUTO DIFF CONFIRMED Platelet Estimate NORMAL Platelet Morphology Comment NORMAL Blood Urea Nitrogen 92 Creatinine 3.06 Random Glucose 104 Total Protein 7.6 Albumin 2.7 Calcium Level 9.5 Alkaline Phosphatase 95 Aspartate Amino Transf (AST/SGOT) 13 Alanine Aminotransferase (ALT/SGPT) 14 Total Bilirubin 1.5 Sodium Level 126 Potassium Level 5.2 Chloride Level 82 Carbon Dioxide Level 32.3 Anion Gap 12 Estimat Glomerular Filtration Rate 20 Magnesium Level 2.4 Troponin I LESS THAN 0.02 LESS THAN 0.02 Prothrombin Time 12.9 Prothromb Time International Ratio 1.3 Activated Partial Thromboplast Time 31.7 B-Type Natriuretic Peptide 1597 Urine Color YELLOW Urine Turbidity CLEAR Urine pH 7.0 Urine Specific [place] 1.013 Urine Protein TRACE Urine Glucose (UA) NEG Urine Ketones NEG Urine Occult Blood NEG Urine Nitrite NEG Urine Bilirubin NEG Urine Urobilinogen 2.0 Urine Leukocyte Esterase NEG Urine RBC LESS THAN 1 Urine WBC 1 Microscopic Urinalysis Comment CULT NOT INDICATED Test 08/14/17 11:24 08/14/17 12:24 White Blood Count 9.7 Red Blood Count 4.29 Hemoglobin 13.6 Hematocrit 39.2 Mean Corpuscular Volume 91.5 Mean Corpuscular Hemoglobin 31.8 Mean Corpuscular Hemoglobin Concent 34.8 Red Cell Distribution Width 16.1 Platelet Count 221 Mean Platelet Volume 8.6 Neutrophils (%) (Auto) 79.4 Lymphocytes (%) (Auto) 7.9 Monocytes (%) (Auto) 10.5 Eosinophils (%) (Auto) 1.9 Basophils (%) (Auto) 0.3 Neutrophils # (Auto) 7.7 Lymphocytes # (Auto) 0.8 Monocytes # (Auto) 1.0 Eosinophils # (Auto) 0.2 Basophils # (Auto) 0.0 CBC Comment DIFF FINAL Differential Comment Result Diagram: 08/14/17 1224 08/13/17 1725 Imaging Last Impressions Chest X-Ray 08/13/17 0000 Signed Impressions: Service Date/Time: Sunday, August 13, 2017 17:39 - CONCLUSION: 1. Cardiomegaly with basal airspace disease improved from July 20. No significant effusion. David Conklin MD Assessment and Plan Problem List: (1) Acute on chronic kidney failure ICD Codes: N17.9 - Acute kidney failure, unspecified; N18.9 - Chronic kidney disease, unspecified Status: Acute Plan: due to overdiuresis agree with holding diuretics as hypotensive give 25% Albumin Follow renal function Avoid nephrotoxic agent (2) A-fib ICD Codes: I48.91 - Unspecified atrial fibrillation Plan: Cardiology is following (3) Hypotension ICD Codes: I95.9 - Hypotension, unspecified Plan: Blood pressure is slowly improving (4) CHF (congestive heart failure) ICD Codes: I50.9 - Heart failure, unspecified Status: Acute Plan: Stable Problem Qualifiers (1) Acute on chronic kidney failure: Qualified Codes: N17.9 - Acute kidney failure, unspecified; N18.9 - Chronic kidney disease, unspecified (2) A-fib: Qualified Codes: I48.2 - Chronic atrial fibrillation Chitra Ulloa MD Aug 14, 2017 13:12
[2017-08-14 13:27] LABS: ALBUMIN 2.4 GM/DL (3.4-5.0); ALKALINE PHOSPHATASE 99 U/L (45-117); ALT (GPT) 13 U/L (12-78); AST (GOT) 15 U/L (15-37); BICARBONATE 26.8 MEQ/L (21.0-32.0); BLOOD UREA NITROGEN 81 MG/DL (7-18); CHLORIDE 84 MEQ/L (98-107); CREATININE 2.58 MG/DL (0.60-1.30); GLOMERULAR FILTRATION RATE 25 ML/MIN (>89); GLUCOSE,RANDOM 96 MG/DL (74-106); TOTAL BILIRUBIN ADULT 1.4 MG/DL (0.2-1.0); TOTAL PROTEIN 6.8 GM/DL (6.4-8.2); TROPONIN I 0.02 NG/ML (0.02-0.05)
[2017-08-14 13:30] LABS: SODIUM (NA) 123 MEQ/L (136-145)
[2017-08-14] MEDS ORDERED: SODIUM CHLORIDE 1 GRAM TAB PO ONE (14:15)
--- NOTE | 2017-08-14 14:40 | HHI.PR ---
Subjective Remarks Sodium level has worsened. Etiology uncertain. No history of previous hyponatremia. Patient has been on increased doses of diuresis to control his CHF. Objective Vital Signs Date Time Temp Pulse Resp B/P (MAP) Pulse Ox O2 Delivery O2 Flow Rate FiO2 08/14/17 13:00 97 08/14/17 12:00 93 08/14/17 11:00 99 08/14/17 11:00 97.9 93 20 125/63 (83) 93 08/14/17 10:00 108 08/14/17 09:00 94 08/14/17 08:15 91 Nasal Cannula 5.00 08/14/17 08:00 102 08/14/17 07:45 98.4 98 20 100/63 (75) 98 08/14/17 05:00 100 08/14/17 05:00 102 20 112/79 (90) 90 08/14/17 02:04 92 16 93/63 (73) 94 Nasal Cannula 3.00 08/13/17 21:49 92 20 96/63 (74) 96 Nasal Cannula 4.00 08/13/17 20:37 93 Nasal Cannula 2.00 08/13/17 18:11 102 18 100/78 (85) 97 Nasal Cannula 2.00 08/13/17 17:26 98 18 99/70 (80) 98 Nasal Cannula 3.00 08/13/17 17:16 100 24 97 Nasal Cannula 4.00 08/13/17 17:13 93 18 119/66 (83) 97 Nasal Cannula 4.00 08/13/17 17:05 97.9 89 26 77/46 (56) 96 Nasal Cannula 4.00 I/O 08/13/17 08/13/17 08/13/17 08/14/17 08/14/17 08/14/17 07:00 15:00 23:00 07:00 15:00 23:00 Intake Total 50 ml Output Total 280 ml Balance -230 ml Intake Oral 50 ml Output Urine Total 280 ml Result Diagram: 08/14/17 1224 08/14/17 1124 Objective Remarks GENERAL: NAD, A&Ox3 HEAD: Normocephalic. NECK: Supple, trachea midline. No lymphadenopathy. EYES: No scleral icterus. No injection or drainage. CARDIOVASCULAR: Regular rate and rhythm without murmurs, gallops, or rubs. RESPIRATORY: Breath sounds equal bilaterally. No accessory muscle use. GASTROINTESTINAL: Abdomen soft, non-tender, nondistended. MUSCULOSKELETAL: No cyanosis, or edema. SKIN: Warm and dry. NEURO: No focal neurological deficitis. A/P Problem List: (1) ELOINA (acute kidney injury) ICD Code: N17.9 - Acute kidney failure, unspecified (2) CHF (congestive heart failure) ICD Code: I50.9 - Heart failure, unspecified Status: Acute (3) A-fib ICD Code: I48.91 - Unspecified atrial fibrillation (4) Hypotension ICD Code: I95.9 - Hypotension, unspecified (5) Generalized weakness ICD Code: R53.1 - Weakness Assessment and Plan 71-year-old male admitted secondary to hyponatremia with weakness Hyponatremia Generalized weakness Sodium deficit is suspected Correct sodium level slowly Cannot use IV hydration as patient is prone for CHF exacerbation Sodium supplement started Follow sodium levels and provide further workup if correction does not improve gradually Hypotension This may be related to diuresis Improvement present Cardiology following Nephrology following Congestive heart failure, diastolic, chronic No exacerbation Monitor clinically Caution with IV hydration Acute kidney injury Improved today from previous exam Likely related to degree of diuresis Follow renal function Oral hydration Atrial fibrillation Rate controlled Metoprolol on hold Follow on telemetry DVT prophylaxis Heparin Eladio Fox MD Aug 14, 2017 14:40
[2017-08-14] MEDS ORDERED: ALBUMIN 25% INJ 100 ML IV ONE (15:15)
[2017-08-14] MEDS: SODIUM CHLORIDE 1 GRAM TAB PO SCH (17:50)
--- NOTE | 2017-08-14 19:25 | EKG ---
Date Performed: 08/13/2017 Time Performed: 17:21:19 PTAGE: 71 years EKG: ATRIAL FIBRILLATION MARKED RIGHT AXIS DEVIATION RIGHT BUNDLE BRANCH BLOCK ABNORMAL ECG Sinc e PREVIOUS TRACING , no significant change noted PREVIOUS TRACIN07/15/2017 17.28 DOCTOR: Valorie Luciano Interpretating Date/Time 08/14/2017 19:23:18
--- NOTE | 2017-08-14 19:25 | EKG ---
Date Performed: 08/14/2017 Time Performed: 01:53:14 PTAGE: 71 years EKG: ATRIAL FIBRILLATION INCOMPLETE RIGHT BUNDLE BRANCH BLOCK RIGHT VENTRICULAR HYPERTROPHY MODE RATE ST DEPRESSION ABNORMAL ECG Since PREVIOUS TRACING , no significant change noted PREVIOUS TRACIN08/13/2017 17.21 DOCTOR: Valorie Luciano Interpretating Date/Time 08/14/2017 19:23:29
[2017-08-14] MEDS: RESP: ALBUTEROL 2.5 MG/IPRATROPIUM 0.5 MG NEB (SCH) NEB (20:20)
[2017-08-14] MEDS: FOLIC ACID 1 MG TAB PO SCH (21:05)
[2017-08-14] MEDS ORDERED: ATROPINE SULFATE 1 MG/10 ML SYRINGE ONE (21:17)
[2017-08-14] MEDS ORDERED: EPINEPHrine HCL (1:10,000) 1 MG/10 ML SYRINGE ONE (21:17)
[2017-08-14] MEDS ORDERED: TEMAZEPAM 7.5 MG CAP PO ONE (21:45)
[2017-08-15] VITALS (11 sets, daily range): BP systolic 85–105; BP diastolic 55–63; PULSE 76–107; RESP 16–20; TEMP 96.5–97.2; O2SAT 89–92
[2017-08-15] MEDS: LEVOTHYROXINE SODIUM 50 MCG TAB PO SCH (04:00)
[2017-08-15] MEDS: DILTIAZEM HCL 30 MG TAB PO SCH (04:00)
[2017-08-15] MEDS: ACETAMINOPHEN/HYDROcodone 325 MG/5 MG TAB PO PRN (04:00)
[2017-08-15] MEDS: DOCUSATE SODIUM 50 MG/SENNA 8.6 MG TAB PO SCH ×2 (07:45→20:25)
[2017-08-15] MEDS: SODIUM CHLORIDE 1 GRAM TAB PO SCH ×3 (07:46→18:00)
[2017-08-15] MEDS: ASPIRIN 81 MG CHEW TAB CHEW SCH (07:47)
[2017-08-15] MEDS: SODIUM CHLORIDE 0.9% FLUSH 10 ML FLUSH IV FLUSH SCH ×2 (07:47→20:29)
[2017-08-15] MEDS: HEPARIN SODIUM - SQ 10,000 UNITS/ML VIAL SQ SCH ×2 (07:48→20:26)
[2017-08-15] MEDS: RESP: ALBUTEROL 2.5 MG/IPRATROPIUM 0.5 MG NEB (SCH) NEB ×3 (08:20→21:58)
[2017-08-15 09:34] LABS: AUTOMATED NEUTROPHIL # 5.1 TH/MM3 (1.8-7.7); BASOPHIL % 0.3 % (0.0-2.0); EOSINOPHIL # 0.2 TH/MM3 (0-0.4); EOSINOPHIL % 3.6 % (0.0-4.0); HEMATOCRIT 37.8 % (39.0-51.0); HEMOGLOBIN 12.9 GM/DL (13.0-17.0); LYMPH % 10.5 % (9.0-44.0); LYMPHOCYTE # 0.7 TH/MM3 (1.0-4.8); MEAN CELL VOLUME 91.5 FL (80.0-100.0); MEAN CORPUSCULAR HEMOGLOBIN 31.2 PG (27.0-34.0); MEAN CORPUSCULAR HGB CONC 34.1 % (32.0-36.0); MEAN PLATELET VOLUME 8.8 FL (7.0-11.0); MONO % 8.7 % (0.0-8.0); MONOCYTE # 0.6 TH/MM3 (0-0.9); NEUT % 76.9 % (16.0-70.0); PLATELET COUNT 219 TH/MM3 (150-450); RED BLOOD COUNT 4.13 MIL/MM3 (4.50-5.90); RED CELL DISTRIBUTION WIDTH 16.1 % (11.6-17.2); WHITE BLOOD COUNT 6.6 TH/MM3 (4.0-11.0)
--- NOTE | 2017-08-15 09:55 | PD.CARD.PN ---
Subjective Subjective Remarks Pt looks well, no complaints. Objective Medications Current Medications Medications (Trade) Dose Ordered Sig/Jose Route Start Time Stop Time Status Last Admin (Duoneb Neb) 1 ampule Q4HR NEB PRN NEB 08/13/17 19:15 08/14/17 08:22 (NS Flush) 2 ml UNSCH PRN IV FLUSH 08/13/17 19:15 (NS Flush) 2 ml BID IV FLUSH 08/13/17 21:00 08/15/17 07:47 (Zofran Inj) 4 mg Q6H PRN IVP 08/13/17 19:15 (Heparin Inj) 5,000 units Q12H SQ 08/14/17 09:00 08/15/17 07:48 (Tylenol) 650 mg Q6H PRN PO 08/13/17 19:15 ([place] 5-325 Mg) 1 tab Q4H PRN PO 08/13/17 19:15 08/15/17 04:00 (Morphine Inj) 2 mg Q3H PRN IV PUSH 08/13/17 19:15 (Sharon-Colace) 1 tab BID PO 08/13/17 21:00 08/15/17 07:45 (Milk Of Magnesia Liq) 30 ml Q12H PRN PO 08/13/17 19:15 (Senokot) 17.2 mg Q12H PRN PO 08/13/17 19:15 (Dulcolax Supp) 10 mg DAILY PRN RECTAL 08/13/17 19:15 (Lactulose Liq) 30 ml DAILY PRN PO 08/13/17 19:15 (Aspirin Chew) 81 mg DAILY CHEW 08/14/17 09:00 08/15/17 07:47 (Folate) 1 mg HS PO 08/13/17 21:00 08/14/17 21:05 (Synthroid) 50 mcg DAILY@0600 PO 08/14/17 06:00 08/15/17 04:00 (Cardizem) 30 mg Q6HR PO 08/14/17 12:00 08/15/17 04:00 (Sodium Chloride) 1 gm TID PO 08/14/17 18:00 08/15/17 07:46 (Duoneb Neb) 1 ampule Q6HR WHILE AWAKE NEB NEB 08/14/17 20:00 08/15/17 08:20 Vital Signs / I&O Vital Signs Date Time Temp Pulse Resp B/P (MAP) Pulse Ox O2 Delivery O2 Flow Rate FiO2 08/15/17 08:20 90 Nasal Cannula 3.50 08/15/17 08:00 97.2 83 16 97/58 (71) 91 08/15/17 04:38 96.7 87 16 105/61 (76) 89 08/15/17 03:55 90 08/15/17 00:27 96.5 76 16 96/60 (72) 90 08/14/17 23:53 72 08/14/17 22:20 97.1 87 18 98/55 (69) 90 08/14/17 20:21 94 Nasal Cannula 3.50 08/14/17 20:00 64 08/14/17 19:30 90 Nasal Cannula 3.00 08/14/17 19:00 97 Nasal Cannula 3.00 08/14/17 19:00 98.2 70 97/63 (74) 97 08/14/17 19:00 74 08/14/17 18:00 73 08/14/17 17:00 80 08/14/17 16:00 84 08/14/17 15:00 86 08/14/17 15:00 98.2 96 20 99/58 (72) 96 08/14/17 14:00 85 08/14/17 13:00 97 08/14/17 12:00 93 08/14/17 11:00 99 08/14/17 11:00 97.9 93 20 125/63 (83) 93 08/14/17 10:00 108 I/O 08/14/17 08/14/17 08/14/17 08/15/17 08/15/17 08/15/17 07:00 15:00 23:00 07:00 15:00 23:00 Intake Total 50 ml 720 ml Output Total 280 ml 700 ml Balance -230 ml 20 ml Intake Oral 50 ml 720 ml Output Urine Total 280 ml 700 ml # Voids 0 # Bowel Movements 0 Physical Exam GENERAL: This is a well-nourished, well-developed patient, in no apparent distress. CARDIOVASCULAR: Regular rate and irregular rhythm without murmurs, gallops, or rubs. RESPIRATORY: Clear to auscultation. Breath sounds equal bilaterally. No wheezes , rales, or rhonchi. GASTROINTESTINAL: Abdomen soft, non-tender, nondistended. Normal, active bowel sounds MUSCULOSKELETAL: Extremities without clubbing, cyanosis, or edema. NEURO: Alert & Oriented x4 to person, place, time, situation. Moves all ext x4 Laboratory Laboratory Tests Test 08/14/17 11:24 08/14/17 12:24 08/15/17 07:30 08/15/17 07:50 Blood Urea Nitrogen 81 MG/DL Creatinine 2.58 MG/DL Random Glucose 96 MG/DL Total Protein 6.8 GM/DL Albumin 2.4 GM/DL Calcium Level 9.0 MG/DL Alkaline Phosphatase 99 U/L Aspartate Amino Transf (AST/SGOT) 15 U/L Alanine Aminotransferase (ALT/SGPT) 13 U/L Total Bilirubin 1.4 MG/DL Sodium Level 123 MEQ/L Potassium Level 4.8 MEQ/L Chloride Level 84 MEQ/L Carbon Dioxide Level 26.8 MEQ/L Anion Gap 12 MEQ/L Estimat Glomerular Filtration Rate 25 ML/MIN Troponin I 0.02 NG/ML White Blood Count 9.7 TH/MM3 6.6 TH/MM3 Red Blood Count 4.29 MIL/MM3 4.13 MIL/MM3 Hemoglobin 13.6 GM/DL 12.9 GM/DL Hematocrit 39.2 % 37.8 % Mean Corpuscular Volume 91.5 FL 91.5 FL Mean Corpuscular Hemoglobin 31.8 PG 31.2 PG Mean Corpuscular Hemoglobin Concent 34.8 % 34.1 % Red Cell Distribution Width 16.1 % 16.1 % Platelet Count 221 TH/MM3 219 TH/MM3 Mean Platelet Volume 8.6 FL 8.8 FL Neutrophils (%) (Auto) 79.4 % 76.9 % Lymphocytes (%) (Auto) 7.9 % 10.5 % Monocytes (%) (Auto) 10.5 % 8.7 % Eosinophils (%) (Auto) 1.9 % 3.6 % Basophils (%) (Auto) 0.3 % 0.3 % Neutrophils # (Auto) 7.7 TH/MM3 5.1 TH/MM3 Lymphocytes # (Auto) 0.8 TH/MM3 0.7 TH/MM3 Monocytes # (Auto) 1.0 TH/MM3 0.6 TH/MM3 Eosinophils # (Auto) 0.2 TH/MM3 0.2 TH/MM3 Basophils # (Auto) 0.0 TH/MM3 0.0 TH/MM3 CBC Comment DIFF FINAL DIFF FINAL Differential Comment Imaging Last Impressions Chest X-Ray 08/13/17 0000 Signed Impressions: Service Date/Time: Sunday, August 13, 2017 17:39 - CONCLUSION: 1. Cardiomegaly with basal airspace disease improved from July 20. No significant effusion. David Conklin MD Assessment and Plan Problem List: (1) A-fib ICD Codes: I48.91 - Unspecified atrial fibrillation Plan: rates good; will change to long acting diltiazem; high fall risk, wouldn' t consider him a candidate for anticoagulation at this time, but will let his outpt hand worker make final decision (2) CHF (congestive heart failure) ICD Codes: I50.9 - Heart failure, unspecified Status: Acute Plan: Labs pending but still appears dry. Normal LVEF by recent echo; will leave off diuretics for now, gental oral hydration; would have him see Dr. Paris as outpt to determine further diuretic therapy (3) Generalized weakness ICD Codes: R53.1 - Weakness Plan: May need rehab (4) Hyponatremia ICD Codes: E87.1 - Hypo-osmolality and hyponatremia Status: Acute Plan: Mgt per medical team, appears on the dry side Assessment and Plan Will sign off at this time, please call with questions. Problem Qualifiers (1) A-fib: Qualified Codes: I48.2 - Chronic atrial fibrillation Valdo Sinha MD Aug 15, 2017 09:55
[2017-08-15] MEDS: DILTIAZEM-CD 120 MG CAP ER PO SCH (10:00)
[2017-08-15 10:35] LABS: ALBUMIN 2.5 GM/DL (3.4-5.0); ALKALINE PHOSPHATASE 101 U/L (45-117); ALT (GPT) 11 U/L (12-78); AST (GOT) 14 U/L (15-37); BICARBONATE 25.3 MEQ/L (21.0-32.0); BLOOD UREA NITROGEN 86 MG/DL (7-18); CALCIUM 8.8 MG/DL (8.5-10.1); CHLORIDE 87 MEQ/L (98-107); CREATININE 2.55 MG/DL (0.60-1.30); GLOMERULAR FILTRATION RATE 25 ML/MIN (>89); GLUCOSE,RANDOM 79 MG/DL (74-106); TOTAL BILIRUBIN ADULT 1.3 MG/DL (0.2-1.0); TOTAL PROTEIN 6.5 GM/DL (6.4-8.2)
[2017-08-15 11:01] LABS: SODIUM (NA) 124 MEQ/L (136-145)
--- NOTE | 2017-08-15 11:11 | HHI.PR ---
Subjective Remarks Follow-up for fatigue and hyponatremia Patient stated that he feels less fatigued today but continues to feel fatigued. He denies any shortness of breathing. On exam I heard right basilar crackles and he stated that he was told that he has scar tissue there and that is why he has that. Otherwise he has no other complaints. Denies any visual changes, headache, or focal neurological deficits. Also denies any nausea or vomiting. Objective Vitals Vital Signs Date Time Temp Pulse Resp B/P (MAP) Pulse Ox O2 Delivery O2 Flow Rate FiO2 08/15/17 08:20 90 Nasal Cannula 3.50 08/15/17 08:00 97.2 83 16 97/58 (71) 91 08/15/17 04:38 96.7 87 16 105/61 (76) 89 08/15/17 03:55 90 08/15/17 00:27 96.5 76 16 96/60 (72) 90 08/14/17 23:53 72 08/14/17 22:20 97.1 87 18 98/55 (69) 90 08/14/17 20:21 94 Nasal Cannula 3.50 08/14/17 20:00 64 08/14/17 19:30 90 Nasal Cannula 3.00 08/14/17 19:00 97 Nasal Cannula 3.00 08/14/17 19:00 98.2 70 97/63 (74) 97 08/14/17 19:00 74 08/14/17 18:00 73 08/14/17 17:00 80 08/14/17 16:00 84 08/14/17 15:00 86 08/14/17 15:00 98.2 96 20 99/58 (72) 96 08/14/17 14:00 85 08/14/17 13:00 97 08/14/17 12:00 93 I/O 08/14/17 08/14/17 08/14/17 08/15/17 08/15/17 08/15/17 07:00 15:00 23:00 07:00 15:00 23:00 Intake Total 50 ml 720 ml Output Total 280 ml 700 ml Balance -230 ml 20 ml Intake Oral 50 ml 720 ml Output Urine Total 280 ml 700 ml # Voids 0 # Bowel Movements 0 Result Diagram: 08/15/17 0750 08/15/17 0730 Objective Remarks GENERAL: in NAD CARDIOVASCULAR: Regular rate and rhythm without murmurs, gallops, or rubs. RESPIRATORY: Breath sounds equal bilaterally. No accessory muscle use. GASTROINTESTINAL: Abdomen soft, non-tender, nondistended. MUSCULOSKELETAL: No cyanosis, or edema. BACK: Nontender without obvious deformity. No CVA tenderness. Medications and IVs Current Medications Albuterol/ Ipratropium (Duoneb Neb) 1 ampule Q4HR NEB PRN NEB SOB/WHEEZING Last administered on 08/14/17 08:22; Start 08/13/17 at 19:15 Dextrose/Sodium Chloride 500 ml @ 500 mls/hr BOLUS ONCE IV Last administered on 08/13/17 19:41; Start 08/13/17 at 19:30; Stop 08/13/17 at 20:29; Status DC Sodium Chloride (NS Flush) 2 ml UNSCH PRN IV FLUSH FLUSH AFTER USING IV ACCESS ; Start 08/13/17 at 19:15 Sodium Chloride (NS Flush) 2 ml BID IV FLUSH Last administered on 08/15/17 07: 47; Start 08/13/17 at 21:00 Ondansetron HCl (Zofran Inj) 4 mg Q6H PRN IVP NAUSEA OR VOMITING; Start at 19:15 Heparin Sodium (Porcine) (Heparin Inj) 5,000 units Q12H SQ Last administered on 08/15/17 07:48; Start 08/14/17 at 09:00 Acetaminophen (Tylenol) 650 mg Q6H PRN PO FEVER/PAIN SCALE 1 TO 2; Start at 19:15 Acetaminophen/ Hydrocodone Bitart ([place] 5-325 Mg) 1 tab Q4H PRN PO PAIN SCALE 3 TO 5 Last administered on 08/15/17 04:00; Start 08/13/17 at 19:15 Morphine Sulfate (Morphine Inj) 2 mg Q3H PRN IV PUSH Pain 6-10; Start 08/13/17 at 19:15 Senna/Docusate Sodium ([place]-Colace) 1 tab BID PO Last administered on 07:45; Start 08/13/17 at 21:00 Magnesium Hydroxide (Milk Of Magnesia Liq) 30 ml Q12H PRN PO Mild constipation ; Start 08/13/17 at 19:15 Sennosides (Senokot) 17.2 mg Q12H PRN PO Moderate constipation; Start 08/13/17 at 19:15 Bisacodyl (Dulcolax Supp) 10 mg DAILY PRN RECTAL SEVERE CONSITIPATION; Start at 19:15 Lactulose (Lactulose Liq) 30 ml DAILY PRN PO SEVERE CONSITIPATION; Start at 19:15 Aspirin (Aspirin Chew) 81 mg DAILY CHEW Last administered on 08/15/17at 07:47; Start 08/14/17 at 09:00 Folic Acid (Folate) 1 mg HS PO Last administered on 08/14/17at 21:05; Start at 21:00 Levothyroxine Sodium (Synthroid) 50 mcg DAILY@0600 PO Last administered on 08/15at 04:00; Start 08/14/17 at 06:00 Furosemide (Lasix Inj) 40 mg BID@09,18 IV PUSH ; Start 08/14/17 at 09:00; Stop 08/14/17 at 09:00; Status DC Diltiazem HCl (Cardizem) 30 mg Q6HR PO Last administered on 08/15/17at 04:00; Start 08/14/17 at 12:00; Stop 08/15/17 at 09:59; Status DC Sodium Chloride (Sodium Chloride) 1 gm TID PO Last administered on 08/15/17at 07 :46; Start 08/14/17 at 18:00 Sodium Chloride (Sodium Chloride) 1 gm ONCE ONCE PO Last administered on at 15:18; Start 08/14/17 at 14:15; Stop 08/14/17 at 14:20; Status DC Albuterol/ Ipratropium (Duoneb Neb) 1 ampule Q6HR WHILE AWAKE NEB NEB Last administered on 08/15/17at 08:20; Start 08/14/17 at 20:00 Albumin Human 100 ml @ 60 mls/hr ONCE ONCE IV Last administered on 08/14/17at 16:08; Start 08/14/17 at 15:15; Stop 08/14/17 at 16:54; Status DC Atropine Sulfate (Atropine Inj) 1 mg STK-MED ONCE .ROUTE ; Start 08/14/17 at 21: 17; Stop 08/14/17 at 21:18; Status DC Epinephrine HCl (EPINEPHrine (1:10,000) INJ) 1 mg STK-MED ONCE .ROUTE ; Start at 21:17; Stop 08/14/17 at 21:18; Status DC Temazepam (Restoril) 7.5 mg ONCE ONCE PO Last administered on 08/14/17at 21:50 ; Start 08/14/17 at 21:45; Stop 08/14/17 at 21:46; Status DC Diltiazem HCl (Cardizem Cd) 120 mg DAILY PO ; Start 08/15/17 at 10:00 A/P Problem List: (1) Generalized weakness ICD Code: R53.1 - Weakness (2) Hypotension ICD Code: I95.9 - Hypotension, unspecified (3) CHF (congestive heart failure) ICD Code: I50.9 - Heart failure, unspecified Status: Acute (4) A-fib ICD Code: I48.91 - Unspecified atrial fibrillation (5) ELOINA (acute kidney injury) ICD Code: N17.9 - Acute kidney failure, unspecified Assessment and Plan 71-year-old male admitted secondary to hyponatremia with weakness Hyponatremia Generalized weakness Most likely this is secondary to CHF but patient is on the dry side right now. He did went from 126-123 now 124. Will continue to encourage oral intake. Continue to trend H&H. Hypotension Patient most likely runs low. Lasix held. Continue current management. Monitor on telemetry. Congestive heart failure, diastolic, chronic No exacerbation Monitor clinically Caution with IV hydration Acute kidney injury Improved today from previous exam Likely related to degree of diuresis Follow renal function Oral hydration Atrial fibrillation Rate controlled Metoprolol on hold Follow on telemetry DVT prophylaxis Heparin Problem Qualifiers (1) A-fib: Qualified Codes: I48.2 - Chronic atrial fibrillation Viviana Barnett MD Aug 15, 2017 11:11
--- NOTE | 2017-08-15 16:44 | HHI.NPPN ---
Subjective History of Present Illness feels tired Interval History hx of cirrhosis chronic hyponatremia Review of Systems General Constitutional: Fatigue Cardiovascular Cardiac: Edema Objective Data Data Vital Signs Date Time Temp Pulse Resp B/P (MAP) Pulse Ox O2 Delivery O2 Flow Rate FiO2 08/15/17 12:00 97.1 101 16 85/55 (65) 91 08/15/17 08:20 90 Nasal Cannula 3.50 08/15/17 08:00 97.2 83 16 97/58 (71) 91 08/15/17 04:38 96.7 87 16 105/61 (76) 89 08/15/17 03:55 90 08/15/17 00:27 96.5 76 16 96/60 (72) 90 08/14/17 23:53 72 08/14/17 22:20 97.1 87 18 98/55 (69) 90 08/14/17 20:21 94 Nasal Cannula 3.50 08/14/17 20:00 64 08/14/17 19:30 90 Nasal Cannula 3.00 08/14/17 19:00 97 Nasal Cannula 3.00 08/14/17 19:00 98.2 70 97/63 (74) 97 08/14/17 19:00 74 08/14/17 18:00 73 08/14/17 17:00 80 -: 08/15/17 0750 08/15/17 0730 Physical Exam General Appearance: Well Developed, Well Nourished Neck Neck Exam: Neck Supple Pulmonary Resp Exam: Rhonchi, Decreased Bases Cardiology CV Exam: Arrhythmia Gastrointestinal/Abdomen GI Exam: Soft, Distended Extremeties Extremities Exam: Moderate Edema Assessment/Plan Problem List: (1) Acute on chronic kidney failure ICD Codes: N17.9 - Acute kidney failure, unspecified; N18.9 - Chronic kidney disease, unspecified Status: Acute Plan: due to overdiuresis agree with holding diuretics as hypotensive Patient is off Diuretic Follow renal function Avoid nephrotoxic agent He has chronic hyponatremia due to liver cirrhosis 2014 it was 105-118, Check liver US Follows with Dr. Webber (2) A-fib ICD Codes: I48.91 - Unspecified atrial fibrillation Plan: Cardiology is following (3) Hypotension ICD Codes: I95.9 - Hypotension, unspecified Plan: Blood pressure is slowly improving (4) CHF (congestive heart failure) ICD Codes: I50.9 - Heart failure, unspecified Status: Acute Plan: Stable (5) Hyponatremia ICD Codes: E87.1 - Hypo-osmolality and hyponatremia Status: Acute Plan: Due to liver cirrhosis check urine sodium Problem Qualifiers (1) Acute on chronic kidney failure: Qualified Codes: N17.9 - Acute kidney failure, unspecified; N18.9 - Chronic kidney disease, unspecified (2) A-fib: Qualified Codes: I48.2 - Chronic atrial fibrillation Chitra Ulloa MD Aug 15, 2017 16:44
[2017-08-15 18:21] LABS: SODIUM,RANDOM URINE 14 MEQ/L
[2017-08-15 18:23] LABS: OSMOLALITY,URINE 466 MOSM/KG (300-1300)
--- NOTE | 2017-08-15 19:56 | EKG ---
Date Performed: 08/14/2017 Time Performed: 11:59:18 PTAGE: 71 years EKG: Atrial fibrillation with a controlled ventricular response Right axis deviation Right ventr icular hypertrophy Septal ST-T changes may be due to hypertrophy and/or ischemia Since the previous t racing, no significant change noted Abnormal ECG PREVIOUS TRACING : 08/14/17 @ 0153 DOCTOR: Valorie Luciano Interpretating Date/Time 08/15/2017 19:54:16
[2017-08-15] MEDS: FOLIC ACID 1 MG TAB PO SCH (20:25)
[2017-08-16] VITALS (11 sets, daily range): BP systolic 88–100; BP diastolic 55–76; PULSE 80–101; RESP 18–20; TEMP 97.2–97.9; O2SAT 90–95
[2017-08-16] MEDS: LEVOTHYROXINE SODIUM 50 MCG TAB PO SCH (04:23)
[2017-08-16] MEDS: ACETAMINOPHEN/HYDROcodone 325 MG/5 MG TAB PO PRN (04:23)
[2017-08-16] MEDS: RESP: ALBUTEROL 2.5 MG/IPRATROPIUM 0.5 MG NEB (SCH) NEB ×3 (08:06→20:01)
[2017-08-16] MEDS: DOCUSATE SODIUM 50 MG/SENNA 8.6 MG TAB PO SCH ×2 (09:00→21:25)
[2017-08-16] MEDS: DILTIAZEM-CD 120 MG CAP ER PO SCH (09:00)
--- NOTE | 2017-08-16 09:28 | RADRPT ---
EXAM DATE/TIME: 08/16/2017 09:30 [facility] COMPARISON: No previous studies available for comparison. INDICATIONS : Cirrhosis. MEDICAL HISTORY : Hypercholesterolemia. Hyperthyroidism. Osteoarthritis. COPD. Dyspnea. GERD. Renal disease. Renal fail ure. Musculoskeletal disorders. Arthritis. Gout. Cirrhosis. CHF. Shingles. SURGICAL HISTORY : Appendectomy. ENCOUNTER: Subsequent ACUITY: 3 days PAIN SCORE: 2/10 LOCATION: Bilateral upper quadrant MEASUREMENTS: LIVER: 17.3 cm length COMMON DUCT: 6 mm RIGHT KIDNEY: 11.1 x 5.0 x 4.5 cm SPLEEN: 12.7 cm length FINDINGS: LIVER: The liver is mildly prominent measuring up to 17.3 cm with heterogeneous echotexture and lobular cont ours. There is no focal mass or ductal dilatation. There is normal hepatopedal blood flow in the port al vein. COMMON DUCT: No intraluminal mass or stone visualized. GALLBLADDER: The gallbladder is normal in size and wall thickness. There is echogenic sludge as well as small echo genic gallstones with posterior shadowing layering dependently. The largest measures up to 1 cm and i s located in the neck of the gallbladder. PANCREAS: The visualized portions are within normal limits. RIGHT KIDNEY: No hydronephrosis, stone or mass. There is trace apparent fluid in the perinephric region. SPLEEN: No focal lesion. There is a small adjacent splenule. CONCLUSION: 1. Cholelithiasis and sludge with no gallbladder wall thickening or biliary obstruction. 2. The liver is mildly prominent and heterogeneous with lobular contours consistent with history of c irrhosis. There is no focal mass. 3. Apparent trace ascitic fluid. Lopez Cedeno MD on August 16, 2017 at 9:21 Board Certified Radiologist. This report was verified electronically.
[2017-08-16] MEDS: SODIUM CHLORIDE 0.9% FLUSH 10 ML FLUSH IV FLUSH SCH ×2 (10:03→21:28)
[2017-08-16] MEDS: SODIUM CHLORIDE 1 GRAM TAB PO SCH ×3 (10:03→18:11)
[2017-08-16] MEDS: ASPIRIN 81 MG CHEW TAB CHEW SCH (10:03)
[2017-08-16] MEDS: HEPARIN SODIUM - SQ 10,000 UNITS/ML VIAL SQ SCH ×2 (10:04→21:27)
--- NOTE | 2017-08-16 10:21 | HHI.PR ---
Subjective Remarks Follow-up for hypotension and hyponatremia Patient stated that he feels better. His fatigue is better. Denies any shortness of breathing. Denying chest pain. He has no complaints. Objective Vitals Vital Signs Date Time Temp Pulse Resp B/P (MAP) Pulse Ox O2 Delivery O2 Flow Rate FiO2 08/16/17 08:42 97.4 84 18 99/65 (76) 93 08/16/17 08:07 94 Nasal Cannula 4.00 08/16/17 08:00 97.2 82 18 88/76 (80) 91 08/16/17 04:54 97.9 82 18 96/64 (75) 92 08/16/17 04:02 80 08/16/17 00:00 97.5 91 18 92/55 (67) 90 08/15/17 23:48 76 08/15/17 22:00 92 Nasal Cannula 4.00 08/15/17 20:23 91 Nasal Cannula 3.00 Humidified 08/15/17 20:00 97.1 107 20 94/63 (73) 92 08/15/17 19:56 76 08/15/17 16:00 97.1 87 16 92/55 (67) 91 08/15/17 12:00 97.1 101 16 85/55 (65) 91 I/O 08/15/17 08/15/17 08/15/17 08/16/17 08/16/17 08/16/17 07:00 15:00 23:00 07:00 15:00 23:00 Intake Total 700 ml Output Total 3 ml 600 ml Balance 697 ml -600 ml Intake Oral 700 ml Output Urine Total 3 ml 600 ml # Voids 0 # Bowel Movements 0 Result Diagram: 08/15/17 0750 08/15/17 1635 Objective Remarks GENERAL: in NAD CARDIOVASCULAR: Regular rate and rhythm without murmurs, gallops, or rubs. RESPIRATORY: Breath sounds equal bilaterally. No accessory muscle use. GASTROINTESTINAL: Abdomen soft, non-tender, nondistended. MUSCULOSKELETAL: No cyanosis, or edema. BACK: Nontender without obvious deformity. No CVA tenderness. Medications and IVs Current Medications Albuterol/ Ipratropium (Duoneb Neb) 1 ampule Q4HR NEB PRN NEB SOB/WHEEZING Last administered on 08/14/17at 08:22; Start 08/13/17 at 19:15 Dextrose/Sodium Chloride 500 ml @ 500 mls/hr BOLUS ONCE IV Last administered on 08/13/17at 19:41; Start 08/13/17 at 19:30; Stop 08/13/17 at 20:29; Status DC Sodium Chloride (NS Flush) 2 ml UNSCH PRN IV FLUSH FLUSH AFTER USING IV ACCESS ; Start 08/13/17 at 19:15 Sodium Chloride (NS Flush) 2 ml BID IV FLUSH Last administered on 08/16/17at 10: 03; Start 08/13/17 at 21:00 Ondansetron HCl (Zofran Inj) 4 mg Q6H PRN IVP NAUSEA OR VOMITING; Start at 19:15 Heparin Sodium (Porcine) (Heparin Inj) 5,000 units Q12H SQ Last administered on 08/16/17at 10:04; Start 08/14/17 at 09:00 Acetaminophen (Tylenol) 650 mg Q6H PRN PO FEVER/PAIN SCALE 1 TO 2; Start at 19:15 Acetaminophen/ Hydrocodone Bitart ([place] 5-325 Mg) 1 tab Q4H PRN PO PAIN SCALE 3 TO 5 Last administered on 08/16/17at 04:23; Start 08/13/17 at 19:15 Morphine Sulfate (Morphine Inj) 2 mg Q3H PRN IV PUSH Pain 6-10; Start 08/13/17 at 19:15 Senna/Docusate Sodium ([place]-Colace) 1 tab BID PO Last administered on at 07:45; Start 08/13/17 at 21:00 Magnesium Hydroxide (Milk Of Magnesia Liq) 30 ml Q12H PRN PO Mild constipation ; Start 08/13/17 at 19:15 Sennosides (Senokot) 17.2 mg Q12H PRN PO Moderate constipation; Start 08/13/17 at 19:15 Bisacodyl (Dulcolax Supp) 10 mg DAILY PRN RECTAL SEVERE CONSITIPATION; Start at 19:15 Lactulose (Lactulose Liq) 30 ml DAILY PRN PO SEVERE CONSITIPATION; Start at 19:15 Aspirin (Aspirin Chew) 81 mg DAILY CHEW Last administered on 08/16/17at 10:03; Start 08/14/17 at 09:00 Folic Acid (Folate) 1 mg HS PO Last administered on 08/15/17at 20:25; Start at 21:00 Levothyroxine Sodium (Synthroid) 50 mcg DAILY@0600 PO Last administered on 08/16at 04:23; Start 08/14/17 at 06:00 Furosemide (Lasix Inj) 40 mg BID@09,18 IV PUSH ; Start 08/14/17 at 09:00; Stop 08/14/17 at 09:00; Status DC Diltiazem HCl (Cardizem) 30 mg Q6HR PO Last administered on 08/15/17at 04:00; Start 08/14/17 at 12:00; Stop 08/15/17 at 09:59; Status DC Sodium Chloride (Sodium Chloride) 1 gm TID PO Last administered on 08/16/17at 10 :03; Start 08/14/17 at 18:00 Sodium Chloride (Sodium Chloride) 1 gm ONCE ONCE PO Last administered on at 15:18; Start 08/14/17 at 14:15; Stop 08/14/17 at 14:20; Status DC Albuterol/ Ipratropium (Duoneb Neb) 1 ampule Q6HR WHILE AWAKE NEB NEB Last administered on 08/16/17at 08:06; Start 08/14/17 at 20:00 Albumin Human 100 ml @ 60 mls/hr ONCE ONCE IV Last administered on 08/14/17at 16:08; Start 08/14/17 at 15:15; Stop 08/14/17 at 16:54; Status DC Atropine Sulfate (Atropine Inj) 1 mg STK-MED ONCE .ROUTE ; Start 08/14/17 at 21: 17; Stop 08/14/17 at 21:18; Status DC Epinephrine HCl (EPINEPHrine (1:10,000) INJ) 1 mg STK-MED ONCE .ROUTE ; Start at 21:17; Stop 08/14/17 at 21:18; Status DC Temazepam (Restoril) 7.5 mg ONCE ONCE PO Last administered on 08/14/17at 21:50 ; Start 08/14/17 at 21:45; Stop 08/14/17 at 21:46; Status DC Diltiazem HCl (Cardizem Cd) 120 mg DAILY PO ; Start 08/15/17 at 10:00 Temazepam (Restoril) 7.5 mg HS PRN PO INSOMNIA; Start 08/15/17 at 23:45 A/P Problem List: (1) Generalized weakness ICD Code: R53.1 - Weakness (2) Hypotension ICD Code: I95.9 - Hypotension, unspecified (3) CHF (congestive heart failure) ICD Code: I50.9 - Heart failure, unspecified Status: Acute (4) A-fib ICD Code: I48.91 - Unspecified atrial fibrillation (5) ELOINA (acute kidney injury) ICD Code: N17.9 - Acute kidney failure, unspecified Assessment and Plan 71-year-old male admitted secondary to hyponatremia with weakness Hyponatremia Generalized weakness Most likely secondary to cirrhosis of liver. Patient had this in the past. Need to be cautious with fluid due to CHF but patient is dry. Continue to monitor and encourage oral intake. Nephrology is following. Hypotension most likely secondary to dehydration from Lasix overuse. Lasix held. Continue with oral intake. Congestive heart failure, diastolic, chronic No exacerbation Monitor clinically Caution oral hydration [employer] Computer [employer] following. Acute kidney injury Slowly improving. Likely related to degree of diuresis Follow renal function Oral hydration Atrial fibrillation Rate controlled Metoprolol on hold Follow on telemetry DVT prophylaxis Heparin Problem Qualifiers (1) A-fib: Qualified Codes: I48.2 - Chronic atrial fibrillation Viviana Barnett MD Aug 16, 2017 10:21
--- NOTE | 2017-08-16 11:20 | HHI.NPPN ---
Subjective Renal Failure: Acute Interval History Pending labs from today. Lung sounds are coarse. Not in distress. (Lesia Alvares) Review of Systems General Constitutional: Fatigue (Lesia Alvares) Respiratory Lungs: SOB, Cough (Lesia Alvares) Cardiovascular Cardiac: Edema (Lesia Alvares) Objective Data Data Vital Signs Date Time Temp Pulse Resp B/P (MAP) Pulse Ox O2 Delivery O2 Flow Rate FiO2 08/16/17 08:42 97.4 84 18 99/65 (76) 93 08/16/17 08:07 94 Nasal Cannula 4.00 08/16/17 08:00 97.2 82 18 88/76 (80) 91 08/16/17 04:54 97.9 82 18 96/64 (75) 92 08/16/17 04:02 80 08/16/17 00:00 97.5 91 18 92/55 (67) 90 08/15/17 23:48 76 08/15/17 22:00 92 Nasal Cannula 4.00 08/15/17 20:23 91 Nasal Cannula 3.00 Humidified 08/15/17 20:00 97.1 107 20 94/63 (73) 92 08/15/17 19:56 76 08/15/17 16:00 97.1 87 16 92/55 (67) 91 08/15/17 12:00 97.1 101 16 85/55 (65) 91 (Lesia Alvares) -: 08/15/17 0750 08/15/17 1635 Physical Exam General Appearance: Well Developed, Well Nourished, Comfortable (Lesia Alvares) Throat Throat Exam: Oral Mucosa [place] & Moist (Lesia Alvares) Neck Neck Exam: Neck Supple (Lesia Alvares) Pulmonary Resp Exam: Crackles, Rhonchi, Decreased Bases (Lesia Alvares) Cardiology CV Exam: Normal Sinus Rhythm, Good Perfusion, Arrhythmia (Lesia Alvares) Gastrointestinal/Abdomen GI Exam: Soft, Non-Tender, Bowel Sounds Present, Distended (Lesia Alvares) Musculoskeletal MS Exam: Normal Gait, Normal Tone (Lesia Alvares) Integumentary Skin Exam: Clear, Warm, Dry, Intact (Lesia Alvares) Extremeties Extremities Exam: Pedal Pulses Palpable, Moderate Edema (Lesia Alvares) Neurologic Neuro Exam: Alert, Awake, Oriented, Speech Clear, Moving All Extremities (Lesia Alvares) Assessment/Plan Discussed Condition With: Patient Assessment Summary: ELOINA/Acute Renal Failure, Dehydration Problem List: (1) Acute on chronic kidney failure ICD Codes: N17.9 - Acute kidney failure, unspecified; N18.9 - Chronic kidney disease, unspecified Status: Acute Plan: ELOINA due to overdiuresis diuretics on hold Repeat labs in process Marginal hypotensive, hold antihypertensives Avoid IVF. Tolerating PO fluids Edema has improved. Avoid nephrotoxic agent We have preestablished appt with the patient in 2 weeks in CKD clinic. (2) A-fib ICD Codes: I48.91 - Unspecified atrial fibrillation Plan: Cardiology is following rate controlled currently (3) Hypotension ICD Codes: I95.9 - Hypotension, unspecified Plan: marginal Blood pressure today, continue to monitor. (4) CHF (congestive heart failure) ICD Codes: I50.9 - Heart failure, unspecified Status: Acute Plan: Monitor fluid status (5) Hyponatremia ICD Codes: E87.1 - Hypo-osmolality and hyponatremia Status: Acute Plan: Due to liver cirrhosis He was also on thiazide diuretics, which can lower serum sodium levels Currently on NaCl 1 g TID, follow labs (Lesia Alvares) Plan patient was seen and examined. Diuretics held. Severe hyponatremia is noted: could be due to non osmotic release of ADH. Significant pulmonary rales. Likely needs diuretics soon. Prognosis is guarded. (Amando Webber MD) Problem Qualifiers (1) Acute on chronic kidney failure: Qualified Codes: N17.9 - Acute kidney failure, unspecified; N18.9 - Chronic kidney disease, unspecified (2) A-fib: Qualified Codes: I48.2 - Chronic atrial fibrillation Lesia Alvares Aug 16, 2017 11:20 Amando Webber MD Aug 17, 2017 15:27
[2017-08-16 13:00] LABS: BICARBONATE 27.4 MEQ/L (21.0-32.0); CALCIUM 9.1 MG/DL (8.5-10.1); CREATININE 2.6 MG/DL (0.60-1.30)
[2017-08-16] MEDS: TEMAZEPAM 7.5 MG CAP PO PRN (21:26)
[2017-08-16] MEDS: FOLIC ACID 1 MG TAB PO SCH (21:26)
[2017-08-17] VITALS (8 sets, daily range): BP systolic 95–107; BP diastolic 62–70; PULSE 74–87; RESP 19–20; TEMP 97.3–98; O2SAT 92–96
[2017-08-17] MEDS: LEVOTHYROXINE SODIUM 50 MCG TAB PO SCH (04:16)
[2017-08-17] MEDS: RESP: ALBUTEROL 2.5 MG/IPRATROPIUM 0.5 MG NEB (SCH) NEB ×3 (08:07→19:23)
[2017-08-17] MEDS: DILTIAZEM-CD 120 MG CAP ER PO SCH (09:00)
[2017-08-17] MEDS: DOCUSATE SODIUM 50 MG/SENNA 8.6 MG TAB PO SCH ×2 (09:14→21:22)
[2017-08-17] MEDS: SODIUM CHLORIDE 1 GRAM TAB PO SCH ×3 (09:14→17:08)
[2017-08-17] MEDS: ASPIRIN 81 MG CHEW TAB CHEW SCH (09:14)
[2017-08-17] MEDS: SODIUM CHLORIDE 0.9% FLUSH 10 ML FLUSH IV FLUSH SCH ×2 (09:15→21:27)
[2017-08-17] MEDS: HEPARIN SODIUM - SQ 10,000 UNITS/ML VIAL SQ SCH ×2 (09:15→21:25)
--- NOTE | 2017-08-17 11:11 | HHI.NPPN ---
Subjective Renal Failure: Acute Interval History Phlebotomy at bedside. Still with coarse lung sounds. No new complaints. (Lesia Alvares) Review of Systems General Constitutional: Fatigue (Lesia Alvares) Respiratory Lungs: SOB, Cough (Lesia Alvares) Cardiovascular Cardiac: Edema (Lesia Alvares) Objective Data Data 08/17/17 08/18/17 19:00 07:00 Intake Total 120 ml Balance 120 ml Intake Oral 120 ml Vital Signs Date Time Temp Pulse Resp B/P (MAP) Pulse Ox O2 Delivery O2 Flow Rate FiO2 08/17/17 08:07 92 Nasal Cannula 4.00 08/17/17 08:00 98.0 74 19 107/70 (82) 95 08/17/17 04:00 97.6 76 20 105/70 (82) 96 08/17/17 00:00 81 20 104/67 (79) 96 08/16/17 21:32 101 08/16/17 20:01 94 Nasal Cannula 4.00 08/16/17 20:00 97.8 92 20 91/67 (75) 95 08/16/17 16:00 97.3 90 18 96/55 (69) 94 08/16/17 12:00 97.6 95 18 100/66 (77) 90 (Lesia Alvares) -: 08/15/17 0750 08/16/17 1105 Imaging Last Impressions Liver Ultrasound 08/16/17 0000 Signed Impressions: Service Date/Time: Wednesday, August 16, 2017 09:30 - CONCLUSION: 1. Cholelithiasis and sludge with no gallbladder wall thickening or biliary obstruction. 2. The liver is mildly prominent and heterogeneous with lobular contours consistent with history of cirrhosis. There is no focal mass. 3. Apparent trace ascitic fluid. Lopez Cedeno MD Chest X-Ray 08/13/17 0000 Signed Impressions: Service Date/Time: Sunday, August 13, 2017 17:39 - CONCLUSION: 1. Cardiomegaly with basal airspace disease improved from July 20. No significant effusion. David Conklin MD (Lesia Alvares) Physical Exam General Appearance: Well Developed, Well Nourished, Comfortable (Dia,Lesia B. OPTICS TEST TECHNICIAN) Throat Throat Exam: Oral Mucosa [place] & Moist (Lesia Alvares. OPTICS TEST TECHNICIAN) Neck Neck Exam: Neck Supple (Lesia Alvares OPTICS TEST TECHNICIAN) Pulmonary Resp Exam: Crackles, Rhonchi, Sputum, Decreased Bases, Labored (Lesia Alvares B. OPTICS TEST TECHNICIAN) Cardiology CV Exam: Normal Sinus Rhythm, Good Perfusion, Arrhythmia (Lesia Alvares. OPTICS TEST TECHNICIAN) Gastrointestinal/Abdomen GI Exam: Soft, Non-Tender, Bowel Sounds Present, Distended (Lesia Alvares. OPTICS TEST TECHNICIAN) Musculoskeletal MS Exam: Normal Gait, Normal Tone (Lesia Alvares. OPTICS TEST TECHNICIAN) Integumentary Skin Exam: Clear, Warm, Dry, Intact (Lesia Alvares OPTICS TEST TECHNICIAN) Extremeties Extremities Exam: Pedal Pulses Palpable, Moderate Edema (Lesia Alvares. OPTICS TEST TECHNICIAN) Neurologic Neuro Exam: Alert, Awake, Oriented, Speech Clear, Moving All Extremities (Lesia Alvares) Assessment/Plan Discussed Condition With: Patient Assessment Summary: ELOINA/Acute Renal Failure, Dehydration Problem List: (1) Acute on chronic kidney failure ICD Codes: N17.9 - Acute kidney failure, unspecified; N18.9 - Chronic kidney disease, unspecified Status: Acute Plan: ELOINA due to overdiuresis, diuretics on hold Repeat labs in process, renal function had been stable. Improved BP, has been hypotensive Avoid IVF. Tolerating PO fluids Edema has improved. Avoid nephrotoxic agent Obtain CXR to evaluate for pulmonary edema vs. pneumonia We have preestablished appt with the patient in 2 weeks in CKD clinic. (2) A-fib ICD Codes: I48.91 - Unspecified atrial fibrillation Plan: Cardiology is following rate controlled currently (3) Hypotension ICD Codes: I95.9 - Hypotension, unspecified Plan: BP improved, continue to monitor (4) CHF (congestive heart failure) ICD Codes: I50.9 - Heart failure, unspecified Status: Acute Plan: Monitor fluid status CXR ordered Diuretics on hold, was on Lasix 20 BID PO prior to last admission (5) Hyponatremia ICD Codes: E87.1 - Hypo-osmolality and hyponatremia Status: Acute Plan: Due to liver cirrhosis He was also on thiazide diuretics, which can lower serum sodium levels Currently on NaCl 1 g TID, follow labs (Lesia Alvares) Plan patient was seen and examined. Improved hyponatremia and renal function. CXR ordered, revealed mild congestive pattern. May need to start a loop diuretic. (Amando Webber MD) Problem Qualifiers (1) Acute on chronic kidney failure: Qualified Codes: N17.9 - Acute kidney failure, unspecified; N18.9 - Chronic kidney disease, unspecified (2) A-fib: Qualified Codes: I48.2 - Chronic atrial fibrillation Lesia Alvares Aug 17, 2017 11:11 Amando Webber MD Aug 17, 2017 15:39
--- NOTE | 2017-08-17 11:34 | HHI.PR ---
Subjective Remarks in no acute distress. says that he's feeling stronger. no new complaints. Objective Vitals Vital Signs Date Time Temp Pulse Resp B/P (MAP) Pulse Ox O2 Delivery O2 Flow Rate FiO2 08/17/17 08:07 92 Nasal Cannula 4.00 08/17/17 08:00 98.0 74 19 107/70 (82) 95 08/17/17 04:00 97.6 76 20 105/70 (82) 96 08/17/17 00:00 81 20 104/67 (79) 96 08/16/17 21:32 101 08/16/17 20:01 94 Nasal Cannula 4.00 08/16/17 20:00 97.8 92 20 91/67 (75) 95 08/16/17 16:00 97.3 90 18 96/55 (69) 94 08/16/17 12:00 97.6 95 18 100/66 (77) 90 I/O 08/16/17 08/16/17 08/16/17 08/17/17 08/17/17 08/17/17 07:00 15:00 23:00 07:00 15:00 23:00 Intake Total 840 ml 240 ml 120 ml Output Total 600 ml 400 ml 450 ml Balance -600 ml 440 ml -210 ml 120 ml Intake Oral 840 ml 240 ml 120 ml Output Urine Total 600 ml 400 ml 450 ml # Voids 4 Result Diagram: 08/15/17 0750 08/16/17 1105 Imaging Last Impressions Liver Ultrasound 08/16/17 0000 Signed Impressions: Service Date/Time: Wednesday, August 16, 2017 09:30 - CONCLUSION: 1. Cholelithiasis and sludge with no gallbladder wall thickening or biliary obstruction. 2. The liver is mildly prominent and heterogeneous with lobular contours consistent with history of cirrhosis. There is no focal mass. 3. Apparent trace ascitic fluid. Lopez Cedeno MD Chest X-Ray 08/13/17 0000 Signed Impressions: Service Date/Time: Sunday, August 13, 2017 17:39 - CONCLUSION: 1. Cardiomegaly with basal airspace disease improved from July 20. No significant effusion. David Conklin MD Objective Remarks GENERAL: This is a well-nourished, well-developed patient, in no apparent distress. CARDIOVASCULAR: Regular rate and regular rhythm without murmurs, gallops, or rubs. RESPIRATORY: Clear to auscultation. Breath sounds equal bilaterally. No wheezes , rales, or rhonchi. GASTROINTESTINAL: Abdomen soft, non-tender, nondistended. Normal, active bowel sounds MUSCULOSKELETAL:lower extremities with bilateral pedal edema. NEURO: Alert & Oriented x4 to person, place, time, situation. Moves all ext x4 Medications and IVs Inpatient Medications Acetaminophen (Tylenol) 650 mg Q6H PRN PO FEVER/PAIN SCALE 1 TO 2; Start at 19:15 Acetaminophen/ Hydrocodone Bitart ([place] 5-325 Mg) 1 tab Q4H PRN PO PAIN SCALE 3 TO 5 Last administered on 08/16/17at 04:23; Start 08/13/17 at 19:15 Albumin Human 100 ml @ 60 mls/hr ONCE ONCE IV Last administered on 08/14/17at 16:08; Start 08/14/17 at 15:15; Stop 08/14/17 at 16:54; Status DC Albuterol/ Ipratropium (Duoneb Neb) 1 ampule Q6HR WHILE AWAKE NEB NEB Last administered on 08/17/17at 08:07; Start 08/14/17 at 20:00 Aspirin (Aspirin Chew) 81 mg DAILY CHEW Last administered on 08/17/17at 09:14; Start 08/14/17 at 09:00 Bisacodyl (Dulcolax Supp) 10 mg DAILY PRN RECTAL SEVERE CONSITIPATION; Start at 19:15 Dextrose/Sodium Chloride 500 ml @ 500 mls/hr BOLUS ONCE IV Last administered on 08/13/17at 19:41; Start 08/13/17 at 19:30; Stop 08/13/17 at 20:29; Status DC Diltiazem HCl (Cardizem Cd) 120 mg DAILY PO ; Start 08/15/17 at 10:00 Diltiazem HCl (Cardizem) 30 mg Q6HR PO Last administered on 08/15/17at 04:00; Start 08/14/17 at 12:00; Stop 08/15/17 at 09:59; Status DC Folic Acid (Folate) 1 mg HS PO Last administered on 08/16/17at 21:26; Start at 21:00 Furosemide (Lasix Inj) 40 mg BID@09,18 IV PUSH ; Start 08/14/17 at 09:00; Stop 08/14/17 at 09:00; Status DC Heparin Sodium (Porcine) (Heparin Inj) 5,000 units Q12H SQ Last administered on 08/17/17at 09:15; Start 08/14/17 at 09:00 Lactulose (Lactulose Liq) 30 ml DAILY PRN PO SEVERE CONSITIPATION; Start at 19:15 Levothyroxine Sodium (Synthroid) 50 mcg DAILY@0600 PO Last administered on 08/17at 04:16; Start 08/14/17 at 06:00 Magnesium Hydroxide (Milk Of Magnesia Liq) 30 ml Q12H PRN PO Mild constipation ; Start 08/13/17 at 19:15 Morphine Sulfate (Morphine Inj) 2 mg Q3H PRN IV PUSH Pain 6-10; Start 08/13/17 at 19:15 Ondansetron HCl (Zofran Inj) 4 mg Q6H PRN IVP NAUSEA OR VOMITING; Start at 19:15 Senna/Docusate Sodium ([place]-Colace) 1 tab BID PO Last administered on at 09:14; Start 08/13/17 at 21:00 Sennosides (Senokot) 17.2 mg Q12H PRN PO Moderate constipation; Start 08/13/17 at 19:15 Sodium Chloride (NS Flush) 2 ml BID IV FLUSH Last administered on 08/17/17at 09: 15; Start 08/13/17 at 21:00 Sodium Chloride (Sodium Chloride) 1 gm ONCE ONCE PO Last administered on at 15:18; Start 08/14/17 at 14:15; Stop 08/14/17 at 14:20; Status DC Temazepam (Restoril) 7.5 mg HS PRN PO INSOMNIA Last administered on 08/16/17at 21:26; Start 08/15/17 at 23:45 A/P Problem List: (1) Generalized weakness ICD Code: R53.1 - Weakness (2) Hypotension ICD Code: I95.9 - Hypotension, unspecified (3) CHF (congestive heart failure) ICD Code: I50.9 - Heart failure, unspecified Status: Acute (4) A-fib ICD Code: I48.91 - Unspecified atrial fibrillation (5) ELOINA (acute kidney injury) ICD Code: N17.9 - Acute kidney failure, unspecified Assessment and Plan Hyponatremia Generalized weakness Most likely secondary to cirrhosis of liver. Patient had this in the past. Need to be cautious with fluid due to CHF but patient is dry. Continue to monitor and encourage oral intake. continue with sodium tablet. Nephrology is following. continue PT. Hypotension-overall improved. most likely secondary to dehydration from Lasix overuse. Congestive heart failure, diastolic, chronic No exacerbation Monitor clinically Caution oral hydration evaluated by cardiology- f/u as outpatient. Acute kidney injury Slowly improving. Likely related to degree of diuresis Follow renal function Oral hydration Atrial fibrillation Rate controlled continue cardizem Follow on telemetry anticoagulation per his cardiology- as outpatient. DVT prophylaxis Heparin Discharge Planning when sodium improves. Problem Qualifiers (1) A-fib: Qualified Codes: I48.2 - Chronic atrial fibrillation Anh Marcial MD Aug 17, 2017 11:34
[2017-08-17 11:47] LABS: BICARBONATE 27.2 MEQ/L (21.0-32.0); CALCIUM 8.9 MG/DL (8.5-10.1); CREATININE 2.04 MG/DL (0.60-1.30)
--- NOTE | 2017-08-17 14:21 | RADRPT ---
EXAM DATE/TIME: 08/17/2017 12:51 [facility] COMPARISON: CHEST PA & LAT, July 21, 2017, 11:05. INDICATIONS : Cough. MEDICAL HISTORY : Hypercholesterolemia. Hyperthyroidism. Osteoarthritis. COPD. Dyspnea. GERD. Renal disease. Renal fail ure. Musculoskeletal disorders. Arthritis. Gout. Cirrhosis. CHF. Shingles. SURGICAL HISTORY : Appendectomy. ENCOUNTER: Subsequent ACUITY: 4 - 6 days PAIN SCORE: 0/10 LOCATION: chest FINDINGS: The heart is markedly enlarged. Significant interstitial prominence is identified throughout both mary gs. Bibasilar airspace disease identified in the patient's prior study has partially resolved. There is overall increase in interstitial vascular markings which may indicate mild congestion. CONCLUSION: 1. Cardiomegaly with interstitial vascular prominence characteristic of mild congestion. 2. Persistent but improved mild bibasilar airspace disease. Tim Barber MD on August 17, 2017 at 14:16 Board Certified Radiologist. This report was verified electronically.
[2017-08-17] MEDS: FOLIC ACID 1 MG TAB PO SCH (21:22)
[2017-08-17] MEDS: TEMAZEPAM 7.5 MG CAP PO PRN (21:27)
[2017-08-18] VITALS (9 sets, daily range): BP systolic 94–105; BP diastolic 61–66; PULSE 78–100; RESP 16–22; TEMP 97.3–98.3; O2SAT 92–95
[2017-08-18] MEDS: LEVOTHYROXINE SODIUM 50 MCG TAB PO SCH (04:40)
[2017-08-18] MEDS: RESP: ALBUTEROL 2.5 MG/IPRATROPIUM 0.5 MG NEB (SCH) NEB ×2 (08:18→13:21)
[2017-08-18] MEDS: ASPIRIN 81 MG CHEW TAB CHEW SCH (09:20)
[2017-08-18] MEDS: HEPARIN SODIUM - SQ 10,000 UNITS/ML VIAL SQ SCH ×2 (09:20→22:54)
[2017-08-18] MEDS: DOCUSATE SODIUM 50 MG/SENNA 8.6 MG TAB PO SCH ×2 (09:20→22:50)
[2017-08-18] MEDS: SODIUM CHLORIDE 1 GRAM TAB PO SCH (09:20)
[2017-08-18] MEDS: SODIUM CHLORIDE 0.9% FLUSH 10 ML FLUSH IV FLUSH SCH ×2 (09:21→22:54)
[2017-08-18] MEDS: DILTIAZEM-CD 120 MG CAP ER PO SCH (09:22)
--- NOTE | 2017-08-18 10:22 | HHI.NPPN ---
Subjective Renal Failure: Acute Interval History Labs in process. Sitting in a chair. (Lesia Alvares) Review of Systems General Constitutional: Fatigue (Lesia Alvares) Respiratory Lungs: SOB, Cough (Lesia Alvares) Cardiovascular Cardiac: Edema (Lesia Alvares) Objective Data Data Vital Signs Date Time Temp Pulse Resp B/P (MAP) Pulse Ox O2 Delivery O2 Flow Rate FiO2 08/18/17 09:20 Nasal Cannula 3.00 Humidified 08/18/17 09:20 80 08/18/17 08:18 92 Nasal Cannula 4.00 08/18/17 08:00 98.3 100 16 99/65 (76) 93 08/18/17 04:00 98.1 79 20 105/65 (78) 93 08/18/17 02:08 84 08/18/17 00:00 97.4 78 20 98/61 (73) 95 08/17/17 21:30 Nasal Cannula 3.00 08/17/17 20:00 97.3 84 20 98/62 (74) 95 08/17/17 19:23 95 Nasal Cannula 4.00 08/17/17 16:00 97.9 87 19 105/67 (80) 96 08/17/17 12:00 97.9 87 19 95/63 (74) 95 (Lesia Alvares) -: 08/15/17 0750 08/17/17 1050 Imaging Last 72 hours Impressions Chest X-Ray 08/17/17 0000 Signed Impressions: Service Date/Time: Thursday, August 17, 2017 12:51 - CONCLUSION: 1. Cardiomegaly with interstitial vascular prominence characteristic of mild congestion. 2. Persistent but improved mild bibasilar airspace disease. Tim Barber MD Liver Ultrasound 08/16/17 0000 Signed Impressions: Service Date/Time: Wednesday, August 16, 2017 09:30 - CONCLUSION: 1. Cholelithiasis and sludge with no gallbladder wall thickening or biliary obstruction. 2. The liver is mildly prominent and heterogeneous with lobular contours consistent with history of cirrhosis. There is no focal mass. 3. Apparent trace ascitic fluid. Lopez Cedeno MD (Dia,Lesia B. STRINGS TEACHER) Physical Exam General Appearance: Well Developed, Well Nourished, No Acute Distress, Comfortable (Lesia Alvares. STRINGS TEACHER) Throat Throat Exam: Oral Mucosa [place] & Moist (Lesia Alvares STRINGS TEACHER) Neck Neck Exam: Neck Supple (Lesia Alvares. STRINGS TEACHER) Pulmonary Resp Exam: Crackles, Rhonchi, Sputum, Decreased Bases, Labored (Lesia Alvares. STRINGS TEACHER) Cardiology CV Exam: Normal Sinus Rhythm, Good Perfusion, Arrhythmia (Lesia Alvares. STRINGS TEACHER) Gastrointestinal/Abdomen GI Exam: Soft, Non-Tender, Bowel Sounds Present, Distended (Lesia Alvares. STRINGS TEACHER) Musculoskeletal MS Exam: Normal Gait, Normal Tone (Lesia Alvares. STRINGS TEACHER) Integumentary Skin Exam: Clear, Warm, Dry, Intact (Lesia Alvares. STRINGS TEACHER) Extremeties Extremities Exam: Pedal Pulses Palpable, Moderate Edema (Lesia Alvares. STRINGS TEACHER) Neurologic Neuro Exam: Alert, Awake, Oriented, Speech Clear, Moving All Extremities (Lesia Alvares. STRINGS TEACHER) Assessment/Plan Discussed Condition With: Patient Assessment Summary: ELOINA/Acute Renal Failure, Dehydration Problem List: (1) Acute on chronic kidney failure ICD Codes: N17.9 - Acute kidney failure, unspecified; N18.9 - Chronic kidney disease, unspecified Status: Acute Plan: ELOINA due to overdiuresis, the diuretics are on hold Repeat labs in process from today He has Marginal BP Avoid IVF. Tolerating PO fluids Edema has improved. Avoid nephrotoxic agent CXR showing mild congestion, most likely will restart diuretics in upcoming days We have preestablished appt with the patient in 2 weeks in CKD clinic. (2) A-fib ICD Codes: I48.91 - Unspecified atrial fibrillation Plan: Cardiology is following rate controlled currently (3) Hypotension ICD Codes: I95.9 - Hypotension, unspecified Plan: BP improved, continue to monitor (4) CHF (congestive heart failure) ICD Codes: I50.9 - Heart failure, unspecified Status: Acute Plan: Monitor fluid status CXR reviewed Diuretics on hold, was on Lasix 20 BID PO prior to last admission (5) Hyponatremia ICD Codes: E87.1 - Hypo-osmolality and hyponatremia Status: Acute Plan: Acute Stop NaCl tabs given CHF Improving, follow labs Of note he was on thiazide diuretics which can lower serum sodium levels Plan p (Lesia Alvares) Plan patient was seen and examined. Monitor renal function which is improving. Fluid restriction for hyponatremia. (Amando Webber MD) Problem Qualifiers (1) Acute on chronic kidney failure: Qualified Codes: N17.9 - Acute kidney failure, unspecified; N18.9 - Chronic kidney disease, unspecified (2) A-fib: Qualified Codes: I48.2 - Chronic atrial fibrillation Lesia Alvares Aug 18, 2017 10:22 Amando Webber MD Aug 19, 2017 14:19
[2017-08-18 11:10] LABS: ALBUMIN 2.5 GM/DL (3.4-5.0); BICARBONATE 26.6 MEQ/L (21.0-32.0); CALCIUM 8.8 MG/DL (8.5-10.1); CREATININE 1.87 MG/DL (0.60-1.30); PHOSPHORUS 2.2 MG/DL (2.5-4.9)
--- NOTE | 2017-08-18 11:15 | HHI.FF ---
Face to Face Verification Diagnosis: (1) Generalized weakness (2) Hyponatremia Physical Therapy Order: Evaluate and Treat Home Health Nursing Order: Medical education Signs/symptoms of disease process Medication education-adverse effect Nursing assessment with vital signs I have seen patient Donovan Herring on 08/18/17. My clinical findings support the need for the requested home health care services because: Ltd mobility - disease progression I certify that my clinical findings support that this patient is homebound because: Unsteady gait/balance Anh Marcial MD Aug 18, 2017 11:15
--- NOTE | 2017-08-18 11:15 | HHI.PR ---
Subjective Remarks in no acute distress. feels stronger to some extent. no new complaints. d/w the RN. Objective Vitals Vital Signs Date Time Temp Pulse Resp B/P (MAP) Pulse Ox O2 Delivery O2 Flow Rate FiO2 08/18/17 09:20 Nasal Cannula 3.00 Humidified 08/18/17 09:20 80 08/18/17 08:18 92 Nasal Cannula 4.00 08/18/17 08:00 98.3 100 16 99/65 (76) 93 08/18/17 04:00 98.1 79 20 105/65 (78) 93 08/18/17 02:08 84 08/18/17 00:00 97.4 78 20 98/61 (73) 95 08/17/17 21:30 Nasal Cannula 3.00 08/17/17 20:00 97.3 84 20 98/62 (74) 95 08/17/17 19:23 95 Nasal Cannula 4.00 08/17/17 16:00 97.9 87 19 105/67 (80) 96 08/17/17 12:00 97.9 87 19 95/63 (74) 95 I/O 08/17/17 08/17/17 08/17/17 08/18/17 08/18/17 08/18/17 07:00 15:00 23:00 07:00 15:00 23:00 Intake Total 240 ml 870 ml 480 ml 360 ml Output Total 450 ml 700 ml 400 ml Balance -210 ml 170 ml 80 ml 360 ml Intake Oral 240 ml 870 ml 480 ml 360 ml Output Urine Total 450 ml 700 ml 400 ml # Voids 3 # Bowel Movements 0 1 Result Diagram: 08/15/17 0750 08/18/17 0954 Imaging Last Impressions Chest X-Ray 08/17/17 0000 Signed Impressions: Service Date/Time: Thursday, August 17, 2017 12:51 - CONCLUSION: 1. Cardiomegaly with interstitial vascular prominence characteristic of mild congestion. 2. Persistent but improved mild bibasilar airspace disease. Tim Barber MD Liver Ultrasound 08/16/17 0000 Signed Impressions: Service Date/Time: Wednesday, August 16, 2017 09:30 - CONCLUSION: 1. Cholelithiasis and sludge with no gallbladder wall thickening or biliary obstruction. 2. The liver is mildly prominent and heterogeneous with lobular contours consistent with history of cirrhosis. There is no focal mass. 3. Apparent trace ascitic fluid. Lopez Cedeno MD Objective Remarks GENERAL: This is a well-nourished, well-developed patient, in no apparent distress. CARDIOVASCULAR: Regular rate and regular rhythm without murmurs, gallops, or rubs. RESPIRATORY: Clear to auscultation. Breath sounds equal bilaterally. No wheezes , rales, or rhonchi. GASTROINTESTINAL: Abdomen soft, non-tender, nondistended. Normal, active bowel sounds MUSCULOSKELETAL:lower extremities with bilateral pedal edema. NEURO: Alert & Oriented x4 to person, place, time, situation. Moves all ext x4 Medications and IVs Inpatient Medications Acetaminophen (Tylenol) 650 mg Q6H PRN PO FEVER/PAIN SCALE 1 TO 2; Start at 19:15 Acetaminophen/ Hydrocodone Bitart ([place] 5-325 Mg) 1 tab Q4H PRN PO PAIN SCALE 3 TO 5 Last administered on 08/16/17at 04:23; Start 08/13/17 at 19:15 Albumin Human 100 ml @ 60 mls/hr ONCE ONCE IV Last administered on 08/14/17at 16:08; Start 08/14/17 at 15:15; Stop 08/14/17 at 16:54; Status DC Albuterol/ Ipratropium (Duoneb Neb) 1 ampule Q6HR WHILE AWAKE NEB NEB Last administered on 08/18/17at 08:18; Start 08/14/17 at 20:00 Aspirin (Aspirin Chew) 81 mg DAILY CHEW Last administered on 08/18/17at 09:20; Start 08/14/17 at 09:00 Bisacodyl (Dulcolax Supp) 10 mg DAILY PRN RECTAL SEVERE CONSITIPATION; Start at 19:15 Dextrose/Sodium Chloride 500 ml @ 500 mls/hr BOLUS ONCE IV Last administered on 08/13/17at 19:41; Start 08/13/17 at 19:30; Stop 08/13/17 at 20:29; Status DC Diltiazem HCl (Cardizem Cd) 120 mg DAILY PO ; Start 08/15/17 at 10:00 Diltiazem HCl (Cardizem) 30 mg Q6HR PO Last administered on 08/15/17at 04:00; Start 08/14/17 at 12:00; Stop 08/15/17 at 09:59; Status DC Folic Acid (Folate) 1 mg HS PO Last administered on 08/17/17at 21:22; Start at 21:00 Furosemide (Lasix Inj) 40 mg BID@09,18 IV PUSH ; Start 08/14/17 at 09:00; Stop 08/14/17 at 09:00; Status DC Heparin Sodium (Porcine) (Heparin Inj) 5,000 units Q12H SQ Last administered on 08/18/17at 09:20; Start 08/14/17 at 09:00 Lactulose (Lactulose Liq) 30 ml DAILY PRN PO SEVERE CONSITIPATION; Start at 19:15 Levothyroxine Sodium (Synthroid) 50 mcg DAILY@0600 PO Last administered on 08/18at 04:40; Start 08/14/17 at 06:00 Magnesium Hydroxide (Milk Of Magnesia Liq) 30 ml Q12H PRN PO Mild constipation ; Start 08/13/17 at 19:15 Morphine Sulfate (Morphine Inj) 2 mg Q3H PRN IV PUSH Pain 6-10; Start 08/13/17 at 19:15 Ondansetron HCl (Zofran Inj) 4 mg Q6H PRN IVP NAUSEA OR VOMITING; Start at 19:15 Senna/Docusate Sodium (Sharon-Colace) 1 tab BID PO Last administered on at 09:20; Start 08/13/17 at 21:00 Sennosides (Senokot) 17.2 mg Q12H PRN PO Moderate constipation; Start 08/13/17 at 19:15 Sodium Chloride (NS Flush) 2 ml BID IV FLUSH Last administered on 08/18/17at 09: 21; Start 08/13/17 at 21:00 Sodium Chloride (Sodium Chloride) 1 gm ONCE ONCE PO Last administered on at 15:18; Start 08/14/17 at 14:15; Stop 08/14/17 at 14:20; Status DC Temazepam (Restoril) 7.5 mg HS PRN PO INSOMNIA Last administered on 08/16/17at 21:26; Start 08/15/17 at 23:45 A/P Problem List: (1) Generalized weakness ICD Code: R53.1 - Weakness (2) Hypotension ICD Code: I95.9 - Hypotension, unspecified (3) CHF (congestive heart failure) ICD Code: I50.9 - Heart failure, unspecified Status: Acute (4) A-fib ICD Code: I48.91 - Unspecified atrial fibrillation (5) ELOINA (acute kidney injury) ICD Code: N17.9 - Acute kidney failure, unspecified Assessment and Plan Hyponatremia Generalized weakness Most likely secondary to cirrhosis of liver. Patient had this in the past. Need to be cautious with fluid due to CHF but patient is dry. Continue to monitor and encourage oral intake. sodium tablet discontinued. Nephrology is following. continue PT. Hypotension-overall improved. most likely secondary to dehydration from Lasix overuse. Congestive heart failure, diastolic, chronic No exacerbation Monitor clinically Caution oral hydration evaluated by cardiology- f/u as outpatient. Acute kidney injury Slowly improving. Likely related to degree of diuresis Follow renal function Oral hydration Atrial fibrillation Rate controlled continue cardizem Follow on telemetry anticoagulation per his cardiology- as outpatient. DVT prophylaxis Heparin Discharge Planning when sodium improves; hopefully within the next 48 hrs. case management for [facility]. Problem Qualifiers (1) A-fib: Qualified Codes: I48.2 - Chronic atrial fibrillation Anh Marcial MD Aug 18, 2017 11:15
[2017-08-18] MEDS: FOLIC ACID 1 MG TAB PO SCH (22:50)
[2017-08-18] MEDS: TEMAZEPAM 7.5 MG CAP PO PRN (23:54)
[2017-08-19] VITALS (7 sets, daily range): BP systolic 86–108; BP diastolic 59–68; PULSE 57–99; RESP 16–20; TEMP 97.4–98.3; O2SAT 90–94
[2017-08-19] MEDS: ACETAMINOPHEN/HYDROcodone 325 MG/5 MG TAB PO PRN ×2 (04:15→08:49)
[2017-08-19] MEDS: LEVOTHYROXINE SODIUM 50 MCG TAB PO SCH (05:27)
--- NOTE | 2017-08-19 08:08 | HHI.PR ---
Subjective Remarks in no acute distress. no new complaints. looks comfortable. Objective Vitals Vital Signs Date Time Temp Pulse Resp B/P (MAP) Pulse Ox O2 Delivery O2 Flow Rate FiO2 08/19/17 07:55 94 Nasal Cannula 3.50 08/19/17 05:30 18 08/19/17 04:00 98.3 90 19 100/68 (79) 91 08/19/17 00:00 97.8 84 20 93/61 (72) 92 08/18/17 20:20 Nasal Cannula 3.00 Humidified 08/18/17 20:00 97.3 89 22 94/62 (73) 94 08/18/17 16:00 97.8 86 16 99/66 (77) 94 08/18/17 12:00 97.6 88 17 105/64 (78) 95 08/18/17 09:20 Nasal Cannula 3.00 Humidified 08/18/17 09:20 80 08/18/17 08:18 92 Nasal Cannula 4.00 I/O 08/18/17 08/18/17 08/18/17 08/19/17 08/19/17 08/19/17 07:00 15:00 23:00 07:00 15:00 23:00 Intake Total 360 ml 960 ml 240 ml Balance 360 ml 960 ml 240 ml Intake Oral 360 ml 960 ml 240 ml # Voids 3 2 2 # Bowel Movements 1 0 0 Result Diagram: 08/15/17 0750 08/18/17 0954 Imaging Last Impressions Chest X-Ray 08/17/17 0000 Signed Impressions: Service Date/Time: Thursday, August 17, 2017 12:51 - CONCLUSION: 1. Cardiomegaly with interstitial vascular prominence characteristic of mild congestion. 2. Persistent but improved mild bibasilar airspace disease. Tim Barber MD Liver Ultrasound 08/16/17 0000 Signed Impressions: Service Date/Time: Wednesday, August 16, 2017 09:30 - CONCLUSION: 1. Cholelithiasis and sludge with no gallbladder wall thickening or biliary obstruction. 2. The liver is mildly prominent and heterogeneous with lobular contours consistent with history of cirrhosis. There is no focal mass. 3. Apparent trace ascitic fluid. Lopez Cedeno MD Objective Remarks GENERAL: This is a well-nourished, well-developed patient, in no apparent distress. CARDIOVASCULAR: Regular rate and regular rhythm without murmurs, gallops, or rubs. RESPIRATORY: Clear to auscultation. Breath sounds equal bilaterally. No wheezes , rales, or rhonchi. GASTROINTESTINAL: Abdomen soft, non-tender, nondistended. Normal, active bowel sounds MUSCULOSKELETAL:lower extremities with bilateral pedal edema. NEURO: Alert & Oriented x4 to person, place, time, situation. Moves all ext x4 Medications and IVs Inpatient Medications Acetaminophen (Tylenol) 650 mg Q6H PRN PO FEVER/PAIN SCALE 1 TO 2; Start at 19:15 Acetaminophen/ Hydrocodone Bitart ([place] 5-325 Mg) 1 tab Q4H PRN PO PAIN SCALE 3 TO 5 Last administered on 08/19/17at 04:15; Start 08/13/17 at 19:15 Albumin Human 100 ml @ 60 mls/hr ONCE ONCE IV Last administered on 08/14/17at 16:08; Start 08/14/17 at 15:15; Stop 08/14/17 at 16:54; Status DC Albuterol/ Ipratropium (Duoneb Neb) 1 ampule Q6HR WHILE AWAKE NEB NEB Last administered on 08/18/17at 13:21; Start 08/14/17 at 20:00; Stop 08/18/17 at 19:59 ; Status DC Aspirin (Aspirin Chew) 81 mg DAILY CHEW Last administered on 08/18/17at 09:20; Start 08/14/17 at 09:00 Bisacodyl (Dulcolax Supp) 10 mg DAILY PRN RECTAL SEVERE CONSITIPATION; Start at 19:15 Dextrose/Sodium Chloride 500 ml @ 500 mls/hr BOLUS ONCE IV Last administered on 08/13/17at 19:41; Start 08/13/17 at 19:30; Stop 08/13/17 at 20:29; Status DC Diltiazem HCl (Cardizem Cd) 120 mg DAILY PO ; Start 08/15/17 at 10:00 Diltiazem HCl (Cardizem) 30 mg Q6HR PO Last administered on 08/15/17at 04:00; Start 08/14/17 at 12:00; Stop 08/15/17 at 09:59; Status DC Folic Acid (Folate) 1 mg HS PO Last administered on 08/18/17at 22:50; Start at 21:00 Furosemide (Lasix Inj) 40 mg BID@09,18 IV PUSH ; Start 08/14/17 at 09:00; Stop 08/14/17 at 09:00; Status DC Heparin Sodium (Porcine) (Heparin Inj) 5,000 units Q12H SQ Last administered on 08/18/17at 22:54; Start 08/14/17 at 09:00 Lactulose (Lactulose Liq) 30 ml DAILY PRN PO SEVERE CONSITIPATION; Start at 19:15 Levothyroxine Sodium (Synthroid) 50 mcg DAILY@0600 PO Last administered on 08/19at 05:27; Start 08/14/17 at 06:00 Magnesium Hydroxide (Milk Of Magnesia Liq) 30 ml Q12H PRN PO Mild constipation ; Start 08/13/17 at 19:15 Morphine Sulfate (Morphine Inj) 2 mg Q3H PRN IV PUSH Pain 6-10; Start 08/13/17 at 19:15 Ondansetron HCl (Zofran Inj) 4 mg Q6H PRN IVP NAUSEA OR VOMITING; Start at 19:15 Senna/Docusate Sodium (Sharon-Colace) 1 tab BID PO Last administered on at 22:50; Start 08/13/17 at 21:00 Sennosides (Senokot) 17.2 mg Q12H PRN PO Moderate constipation; Start 08/13/17 at 19:15 Sodium Chloride (NS Flush) 2 ml BID IV FLUSH Last administered on 08/18/17at 22: 54; Start 08/13/17 at 21:00 Sodium Chloride (Sodium Chloride) 1 gm ONCE ONCE PO Last administered on at 15:18; Start 08/14/17 at 14:15; Stop 08/14/17 at 14:20; Status DC Temazepam (Restoril) 7.5 mg HS PRN PO INSOMNIA Last administered on 08/18/17at 23:54; Start 08/15/17 at 23:45 A/P Problem List: (1) Generalized weakness ICD Code: R53.1 - Weakness (2) Hypotension ICD Code: I95.9 - Hypotension, unspecified (3) CHF (congestive heart failure) ICD Code: I50.9 - Heart failure, unspecified Status: Acute (4) A-fib ICD Code: I48.91 - Unspecified atrial fibrillation (5) ELOINA (acute kidney injury) ICD Code: N17.9 - Acute kidney failure, unspecified Assessment and Plan Hyponatremia Generalized weakness Most likely secondary to cirrhosis of liver. Patient had this in the past. Need to be cautious with fluid due to CHF but patient is dry. Continue to monitor and encourage oral intake. sodium tablet discontinued. monitor renal function and electrolytes. Nephrology is following. continue PT. Hypotension-overall improved. most likely secondary to dehydration from Lasix overuse. Congestive heart failure, diastolic, chronic No exacerbation Monitor clinically Caution oral hydration evaluated by cardiology- f/u as outpatient. Acute kidney injury Slowly improving. Likely related to degree of diuresis Follow renal function Oral hydration Atrial fibrillation Rate controlled continue cardizem Follow on telemetry anticoagulation per his cardiology- as outpatient. DVT prophylaxis Heparin Discharge Planning when sodium improves; hopefully within the next 48 hrs. case management for [facility]. Problem Qualifiers (1) A-fib: Qualified Codes: I48.2 - Chronic atrial fibrillation Anh Mracial MD Aug 19, 2017 08:08
[2017-08-19] MEDS: DOCUSATE SODIUM 50 MG/SENNA 8.6 MG TAB PO SCH ×2 (08:48→20:05)
[2017-08-19] MEDS: HEPARIN SODIUM - SQ 10,000 UNITS/ML VIAL SQ SCH ×2 (08:49→20:05)
[2017-08-19] MEDS: SODIUM CHLORIDE 0.9% FLUSH 10 ML FLUSH IV FLUSH SCH ×2 (08:50→20:06)
[2017-08-19] MEDS: DILTIAZEM-CD 120 MG CAP ER PO SCH (08:50)
[2017-08-19] MEDS: ASPIRIN 81 MG CHEW TAB CHEW SCH (08:50)
[2017-08-19 09:20] LABS: ALBUMIN 2.5 GM/DL (3.4-5.0); BICARBONATE 26.3 MEQ/L (21.0-32.0); CALCIUM 8.8 MG/DL (8.5-10.1); CREATININE 1.66 MG/DL (0.60-1.30)
[2017-08-19 09:21] LABS: PHOSPHORUS 2.2 MG/DL (2.5-4.9)
--- NOTE | 2017-08-19 10:19 | HHI.NPPN ---
Subjective Renal Failure: Acute Interval History Renal function is better. Lung sounds still coarse. No new concerns. (Lesia Alvares) Review of Systems General Constitutional: Fatigue (Lesia Alvares) Respiratory Lungs: SOB, Cough (Lesia Alvares) Cardiovascular Cardiac: Edema (Lesia Alvares) Objective Data Data Vital Signs Date Time Temp Pulse Resp B/P (MAP) Pulse Ox O2 Delivery O2 Flow Rate FiO2 08/19/17 08:00 97.5 87 16 108/59 (75) 90 08/19/17 07:55 94 Nasal Cannula 3.50 08/19/17 05:30 18 08/19/17 04:00 98.3 90 19 100/68 (79) 91 08/19/17 00:00 97.8 84 20 93/61 (72) 92 08/18/17 20:20 Nasal Cannula 3.00 Humidified 08/18/17 20:00 97.3 89 22 94/62 (73) 94 08/18/17 16:00 97.8 86 16 99/66 (77) 94 08/18/17 12:00 97.6 88 17 105/64 (78) 95 (Lesia Alvares) -: 08/15/17 0750 08/19/17 0800 Physical Exam General Appearance: Well Developed, Well Nourished, No Acute Distress, Comfortable (Lesia Alvares) Throat Throat Exam: Oral Mucosa [place] & Moist (Lesia Alvares) Neck Neck Exam: Neck Supple (Lesia Alvares) Pulmonary Resp Exam: Crackles, Rhonchi, Sputum, Decreased Bases, Labored (Lesia Alvares) Cardiology CV Exam: Normal Sinus Rhythm, Good Perfusion, Arrhythmia (Lesia Alvares) Gastrointestinal/Abdomen GI Exam: Soft, Non-Tender, Bowel Sounds Present, Distended (Lesia Alvares) Musculoskeletal MS Exam: Normal Gait, Normal Tone (Lesia Alvares) Integumentary Skin Exam: Clear, Warm, Dry, Intact (Lesia Alvares) Extremeties Extremities Exam: Pedal Pulses Palpable, Moderate Edema (Lesia Alvares) Neurologic Neuro Exam: Alert, Awake, Oriented, Speech Clear, Moving All Extremities (Lesia Alvares) Assessment/Plan Discussed Condition With: Patient Assessment Summary: ELOINA/Acute Renal Failure, Dehydration, CHF, Hypertension Electrolyte Assessment: Hyponatremia Problem List: (1) Acute on chronic kidney failure ICD Codes: N17.9 - Acute kidney failure, unspecified; N18.9 - Chronic kidney disease, unspecified Status: Acute Plan: ELOINA due to overdiuresis, the diuretics have been held Renal function has improved. Stable for discharge from renal perspective. We have preestablished appt with the patient in 2 weeks in CKD clinic. Resume lasix 40 mg po daily. Avoid nephrotoxic agent (2) Hyponatremia ICD Codes: E87.1 - Hypo-osmolality and hyponatremia Status: Acute Plan: Acute Off NaCl tabs given CHF Start loop diuretic Of note he was on thiazide diuretics which can lower serum sodium levels (3) A-fib ICD Codes: I48.91 - Unspecified atrial fibrillation Plan: Cardiology is following rate controlled currently (4) Hypotension ICD Codes: I95.9 - Hypotension, unspecified Plan: BP improved, continue to monitor (5) CHF (congestive heart failure) ICD Codes: I50.9 - Heart failure, unspecified Status: Acute Plan: Monitor fluid status CXR reviewed Diuretics to be resumed Plan p (Lesia Alvares) Plan patient was seen and examined. His renal function has improved, however, hyponatremia persists. I will give him a dose of Tolvaptan. No need for fluid restriction while on Tolvaptan. (Amando Webber MD) Problem Qualifiers (1) Acute on chronic kidney failure: Qualified Codes: N17.9 - Acute kidney failure, unspecified; N18.9 - Chronic kidney disease, unspecified (2) A-fib: Qualified Codes: I48.2 - Chronic atrial fibrillation Lesia Alvares Aug 19, 2017 10:19 Amando Webber MD Aug 19, 2017 14:25
[2017-08-19] MEDS: FUROSEMIDE 40 MG TAB PO SCH (10:30)
[2017-08-19] MEDS ORDERED: TOLVAPTAN 15 MG TAB PO ONE (14:30)
[2017-08-19] MEDS: FOLIC ACID 1 MG TAB PO SCH (20:05)
[2017-08-20] VITALS (9 sets, daily range): BP systolic 81–105; BP diastolic 56–68; PULSE 80–101; RESP 18–22; TEMP 97.5–98.9; O2SAT 90–96
[2017-08-20] MEDS: LEVOTHYROXINE SODIUM 50 MCG TAB PO SCH (05:23)
[2017-08-20] MEDS: ACETAMINOPHEN/HYDROcodone 325 MG/5 MG TAB PO PRN (05:23)
[2017-08-20 08:35] LABS: BICARBONATE 25.2 MEQ/L (21.0-32.0); CALCIUM 8.7 MG/DL (8.5-10.1); CREATININE 1.8 MG/DL (0.60-1.30)
[2017-08-20] MEDS: SODIUM CHLORIDE 0.9% FLUSH 10 ML FLUSH IV FLUSH SCH ×2 (09:00→20:18)
[2017-08-20] MEDS: DILTIAZEM-CD 120 MG CAP ER PO SCH (09:00)
--- NOTE | 2017-08-20 09:06 | HHI.PR ---
Subjective Remarks in no acute distress. still feels weak. BP trend noted. d/w the RN at the bedside. Objective Vitals Vital Signs Date Time Temp Pulse Resp B/P (MAP) Pulse Ox O2 Delivery O2 Flow Rate FiO2 08/20/17 04:00 97.9 90 18 105/67 (80) 92 08/20/17 01:10 92 08/20/17 00:00 98.9 101 18 96/68 (77) 90 08/19/17 20:03 Nasal Cannula 3.00 Humidified 08/19/17 20:00 98.0 99 18 92/61 (71) 91 08/19/17 19:35 Nasal Cannula 3.50 08/19/17 16:00 97.9 57 16 96/62 (73) 93 08/19/17 12:00 97.4 82 16 86/63 (71) 93 I/O 08/19/17 08/19/17 08/19/17 08/20/17 08/20/17 08/20/17 07:00 15:00 23:00 07:00 15:00 23:00 Intake Total 240 ml 900 ml Balance 240 ml 900 ml Intake Oral 240 ml 900 ml # Voids 2 2 # Bowel Movements 0 0 Result Diagram: 08/20/17 0626 Imaging Last Impressions Chest X-Ray 08/17/17 0000 Signed Impressions: Service Date/Time: Thursday, August 17, 2017 12:51 - CONCLUSION: 1. Cardiomegaly with interstitial vascular prominence characteristic of mild congestion. 2. Persistent but improved mild bibasilar airspace disease. Tim Barber MD Liver Ultrasound 08/16/17 0000 Signed Impressions: Service Date/Time: Wednesday, August 16, 2017 09:30 - CONCLUSION: 1. Cholelithiasis and sludge with no gallbladder wall thickening or biliary obstruction. 2. The liver is mildly prominent and heterogeneous with lobular contours consistent with history of cirrhosis. There is no focal mass. 3. Apparent trace ascitic fluid. Lopez Cedeno MD Objective Remarks GENERAL: This is a well-nourished, well-developed patient, in no apparent distress. CARDIOVASCULAR: Regular rate and regular rhythm without murmurs, gallops, or rubs. RESPIRATORY: Clear to auscultation. Breath sounds equal bilaterally. No wheezes , rales, or rhonchi. GASTROINTESTINAL: Abdomen soft, non-tender, nondistended. Normal, active bowel sounds MUSCULOSKELETAL:lower extremities with bilateral pedal edema. NEURO: Alert & Oriented x4 to person, place, time, situation. Moves all ext x4 Medications and IVs Inpatient Medications Acetaminophen (Tylenol) 650 mg Q6H PRN PO FEVER/PAIN SCALE 1 TO 2; Start at 19:15 Acetaminophen/ Hydrocodone Bitart ([place] 5-325 Mg) 2 tab Q4H PRN PO PAIN 6-10 Last administered on 08/19/17at 08:49; Start 08/19/17 at 09:00 Albumin Human 100 ml @ 60 mls/hr ONCE ONCE IV Last administered on 08/14/17at 16:08; Start 08/14/17 at 15:15; Stop 08/14/17 at 16:54; Status DC Albuterol/ Ipratropium (Duoneb Neb) 1 ampule Q6HR WHILE AWAKE NEB NEB Last administered on 08/18/17at 13:21; Start 08/14/17 at 20:00; Stop 08/18/17 at 19:59 ; Status DC Aspirin (Aspirin Chew) 81 mg DAILY CHEW Last administered on 08/19/17at 08:50; Start 08/14/17 at 09:00 Bisacodyl (Dulcolax Supp) 10 mg DAILY PRN RECTAL SEVERE CONSITIPATION; Start at 19:15 Dextrose/Sodium Chloride 500 ml @ 500 mls/hr BOLUS ONCE IV Last administered on 08/13/17at 19:41; Start 08/13/17 at 19:30; Stop 08/13/17 at 20:29; Status DC Diltiazem HCl (Cardizem Cd) 120 mg DAILY PO ; Start 08/15/17 at 10:00 Diltiazem HCl (Cardizem) 30 mg Q6HR PO Last administered on 08/15/17at 04:00; Start 08/14/17 at 12:00; Stop 08/15/17 at 09:59; Status DC Folic Acid (Folate) 1 mg HS PO Last administered on 08/19/17at 20:05; Start at 21:00 Furosemide (Lasix Inj) 40 mg BID@,18 IV PUSH ; Start 08/14/17 at 09:00; Stop 08/14/17 at 09:00; Status DC Furosemide (Lasix) 40 mg DAILY PO ; Start 08/19/17 at 10:30 Heparin Sodium (Porcine) (Heparin Inj) 5,000 units Q12H SQ Last administered on 08/19/17at 20:05; Start 08/14/17 at 09:00 Lactulose (Lactulose Liq) 30 ml DAILY PRN PO SEVERE CONSITIPATION; Start at 19:15 Levothyroxine Sodium (Synthroid) 50 mcg DAILY@0600 PO Last administered on 08/20at 05:23; Start 08/14/17 at 06:00 Magnesium Hydroxide (Milk Of Magnesia Liq) 30 ml Q12H PRN PO Mild constipation ; Start 08/13/17 at 19:15 Morphine Sulfate (Morphine Inj) 2 mg Q3H PRN IV PUSH BREAKTHROUGH PAIN; Start 08/13/17 at 19:15 Ondansetron HCl (Zofran Inj) 4 mg Q6H PRN IVP NAUSEA OR VOMITING; Start at 19:15 Senna/Docusate Sodium ([place]-Colace) 1 tab BID PO Last administered on at 20:05; Start 08/13/17 at 21:00 Sennosides (Senokot) 17.2 mg Q12H PRN PO Moderate constipation; Start 08/13/17 at 19:15 Sodium Chloride (NS Flush) 2 ml BID IV FLUSH Last administered on 08/19/17at 20: 06; Start 08/13/17 at 21:00 Sodium Chloride (Sodium Chloride) 1 gm ONCE ONCE PO Last administered on at 15:18; Start 08/14/17 at 14:15; Stop 08/14/17 at 14:20; Status DC Temazepam (Restoril) 7.5 mg HS PRN PO INSOMNIA Last administered on 08/18/17at 23:54; Start 08/15/17 at 23:45 Tolvaptan (Samsca) 15 mg ONCE ONCE PO Last administered on 08/19/17at 14:30; Start 08/19/17 at 14:30; Stop 08/19/17 at 14:52; Status DC A/P Problem List: (1) Generalized weakness ICD Code: R53.1 - Weakness (2) Hypotension ICD Code: I95.9 - Hypotension, unspecified (3) CHF (congestive heart failure) ICD Code: I50.9 - Heart failure, unspecified Status: Acute (4) A-fib ICD Code: I48.91 - Unspecified atrial fibrillation (5) ELOINA (acute kidney injury) ICD Code: N17.9 - Acute kidney failure, unspecified Assessment and Plan Hyponatremia - trending down again. Generalized weakness Most likely secondary to cirrhosis of liver. Patient had this in the past. Need to be cautious with fluid due to CHF . Continue to monitor and encourage oral intake. received a dose of Samsca. sodium tablet discontinued. monitor renal function and electrolytes closely. Nephrology is following. continue PT. Hypotension-overall improved. BP still low-normal. hold lasix today. continue to monitor. Congestive heart failure, diastolic, chronic No exacerbation Monitor clinically Caution oral hydration evaluated by cardiology- f/u as outpatient. Acute kidney injury Slowly improving. Likely related to degree of diuresis Follow renal function Oral hydration Atrial fibrillation Rate controlled continue cardizem Follow on telemetry anticoagulation per his cardiology- as outpatient. DVT prophylaxis Heparin Discharge Planning sodium level trending down again. not ready for discharge today. d/w the patient; rehab was offered but the patient wants to go home. case management for [facility]. Problem Qualifiers (1) A-fib: Qualified Codes: I48.2 - Chronic atrial fibrillation Anh Marcial MD Aug 20, 2017 09:06
[2017-08-20] MEDS: FUROSEMIDE 40 MG TAB PO SCH (10:11)
[2017-08-20] MEDS: DOCUSATE SODIUM 50 MG/SENNA 8.6 MG TAB PO SCH ×2 (10:11→20:18)
[2017-08-20] MEDS: HEPARIN SODIUM - SQ 10,000 UNITS/ML VIAL SQ SCH ×2 (10:12→20:19)
[2017-08-20] MEDS: ASPIRIN 81 MG CHEW TAB CHEW SCH (10:12)
--- NOTE | 2017-08-20 11:06 | HHI.NPPN ---
Subjective Renal Failure: Acute Interval History Sodium is worse today. He has no complaints. (Lesia Alvares) Review of Systems General Constitutional: Fatigue (Lesia Alvares) Respiratory Lungs: SOB, Cough (Lesia Alvares) Cardiovascular Cardiac: Edema (Lesia Alvares) Objective Data Data Vital Signs Date Time Temp Pulse Resp B/P (MAP) Pulse Ox O2 Delivery O2 Flow Rate FiO2 08/20/17 04:00 97.9 90 18 105/67 (80) 92 08/20/17 01:10 92 08/20/17 00:00 98.9 101 18 96/68 (77) 90 08/19/17 20:03 Nasal Cannula 3.00 Humidified 08/19/17 20:00 98.0 99 18 92/61 (71) 91 08/19/17 19:35 Nasal Cannula 3.50 08/19/17 16:00 97.9 57 16 96/62 (73) 93 08/19/17 12:00 97.4 82 16 86/63 (71) 93 (Lesia Alvares) -: 08/20/17 0626 Imaging Last Impressions Chest X-Ray 08/17/17 0000 Signed Impressions: Service Date/Time: Thursday, August 17, 2017 12:51 - CONCLUSION: 1. Cardiomegaly with interstitial vascular prominence characteristic of mild congestion. 2. Persistent but improved mild bibasilar airspace disease. Tim Barber MD Liver Ultrasound 08/16/17 0000 Signed Impressions: Service Date/Time: Wednesday, August 16, 2017 09:30 - CONCLUSION: 1. Cholelithiasis and sludge with no gallbladder wall thickening or biliary obstruction. 2. The liver is mildly prominent and heterogeneous with lobular contours consistent with history of cirrhosis. There is no focal mass. 3. Apparent trace ascitic fluid. Lopez Cedeno MD (Lesia Alvares) Physical Exam General Appearance: Well Developed, Well Nourished, No Acute Distress, Comfortable (Lesia Alvares) Throat Throat Exam: Oral Mucosa [place] & Moist (Lesia Alvares) Neck Neck Exam: Neck Supple (Lesia Alvares) Pulmonary Resp Exam: Crackles, Rhonchi, Sputum, Decreased Bases, Labored (Lesia Alvares) Cardiology CV Exam: Normal Sinus Rhythm, Good Perfusion, Arrhythmia (Lesia Alvares) Gastrointestinal/Abdomen GI Exam: Soft, Non-Tender, Bowel Sounds Present, Distended (Lesia Alvares) Musculoskeletal MS Exam: Normal Gait, Normal Tone (Lesia Alvares) Integumentary Skin Exam: Clear, Warm, Dry, Intact (Lesia Alvares) Extremeties Extremities Exam: Pedal Pulses Palpable, Moderate Edema (Lesia Alvares) Neurologic Neuro Exam: Alert, Awake, Oriented, Speech Clear, Moving All Extremities (Lesia Alvares) Assessment/Plan Discussed Condition With: Patient Assessment Summary: ELOINA/Acute Renal Failure, Dehydration, CHF, Hypertension Electrolyte Assessment: Hyponatremia Problem List: (1) Acute on chronic kidney failure ICD Codes: N17.9 - Acute kidney failure, unspecified; N18.9 - Chronic kidney disease, unspecified Status: Acute Plan: Resolving ELOINA, it was thought to be due to overdiuresis Renal function had improved, today is slightly worse Hold diuretics from today After discharge we have a preestablished appt with the patient in 2 weeks in CKD clinic. Avoid nephrotoxic agent PO Fluids encouraged Daily labs (2) Hyponatremia ICD Codes: E87.1 - Hypo-osmolality and hyponatremia Status: Acute Plan: Acute Off NaCl tabs given CHF Hold loop diuretic Of note he was on thiazide diuretics which can lower serum sodium levels Started tolvaptan yesterday,expected improvement, continue same dose no fluid restriction required repeat labs (3) A-fib ICD Codes: I48.91 - Unspecified atrial fibrillation Plan: Cardiology is following rate controlled currently (4) Hypotension ICD Codes: I95.9 - Hypotension, unspecified Plan: BP improved, continue to monitor (5) CHF (congestive heart failure) ICD Codes: I50.9 - Heart failure, unspecified Status: Acute Plan: Monitor fluid status CXR reviewed Diuretics held from today Plan (Lesia Alvares) Plan patient was seen and examined. Continue Tolvaptan. Monitor renal function. (Amando Webber MD) Problem Qualifiers (1) Acute on chronic kidney failure: Qualified Codes: N17.9 - Acute kidney failure, unspecified; N18.9 - Chronic kidney disease, unspecified (2) A-fib: Qualified Codes: I48.2 - Chronic atrial fibrillation Lesia Alvares Aug 20, 2017 11:06 Amando Webber MD Aug 23, 2017 10:38
[2017-08-20] MEDS: TOLVAPTAN 15 MG TAB PO SCH (15:13)
[2017-08-20] MEDS: FOLIC ACID 1 MG TAB PO SCH (20:18)
[2017-08-21] VITALS (7 sets, daily range): BP systolic 90–99; BP diastolic 56–66; PULSE 78–98; RESP 17–22; TEMP 97–98.2; O2SAT 91–95
[2017-08-21] MEDS: LEVOTHYROXINE SODIUM 50 MCG TAB PO SCH (05:01)
[2017-08-21 08:54] LABS: ALBUMIN 2.3 GM/DL (3.4-5.0); BICARBONATE 25.5 MEQ/L (21.0-32.0); CALCIUM 8.8 MG/DL (8.5-10.1); CREATININE 1.75 MG/DL (0.60-1.30); PHOSPHORUS 3.3 MG/DL (2.5-4.9)
[2017-08-21] MEDS: DILTIAZEM-CD 120 MG CAP ER PO SCH (09:00)
--- NOTE | 2017-08-21 09:04 | HHI.PR ---
Subjective Remarks in no acute distress. resting comfortably. no new complaints. Objective Vitals Vital Signs Date Time Temp Pulse Resp B/P (MAP) Pulse Ox O2 Delivery O2 Flow Rate FiO2 08/21/17 04:00 97.0 98 20 98/63 (75) 91 08/21/17 00:00 97.2 90 18 98/66 (77) 95 08/20/17 20:36 Nasal Cannula 3.00 Humidified 08/20/17 20:11 80 08/20/17 20:00 98.0 80 18 90/61 (71) 96 08/20/17 17:53 Nasal Cannula 3.50 08/20/17 16:00 97.8 86 20 81/58 (66) 96 85/56 (66) 08/20/17 12:00 97.5 99 20 91/60 (70) 91 I/O 08/20/17 08/20/17 08/20/17 08/21/17 08/21/17 08/21/17 07:00 15:00 23:00 07:00 15:00 23:00 Intake Total 1200 ml 720 ml Balance 1200 ml 720 ml Intake Oral 1200 ml 720 ml # Voids 1 3 # Bowel Movements 1 Result Diagram: 08/21/17 0745 Imaging Last Impressions Chest X-Ray 08/17/17 0000 Signed Impressions: Service Date/Time: Thursday, August 17, 2017 12:51 - CONCLUSION: 1. Cardiomegaly with interstitial vascular prominence characteristic of mild congestion. 2. Persistent but improved mild bibasilar airspace disease. Tim Barber MD Liver Ultrasound 08/16/17 0000 Signed Impressions: Service Date/Time: Wednesday, August 16, 2017 09:30 - CONCLUSION: 1. Cholelithiasis and sludge with no gallbladder wall thickening or biliary obstruction. 2. The liver is mildly prominent and heterogeneous with lobular contours consistent with history of cirrhosis. There is no focal mass. 3. Apparent trace ascitic fluid. Lopez Cedeno MD Objective Remarks GENERAL: This is a well-nourished, well-developed patient, in no apparent distress. CARDIOVASCULAR: Regular rate and regular rhythm without murmurs, gallops, or rubs. RESPIRATORY: Clear to auscultation. Breath sounds equal bilaterally. No wheezes , rales, or rhonchi. GASTROINTESTINAL: Abdomen soft, non-tender, nondistended. Normal, active bowel sounds MUSCULOSKELETAL:lower extremities with bilateral pedal edema. NEURO: Alert & Oriented x4 to person, place, time, situation. Moves all ext x4 Medications and IVs Inpatient Medications Acetaminophen (Tylenol) 650 mg Q6H PRN PO FEVER/PAIN SCALE 1 TO 2; Start at 19:15 Acetaminophen/ Hydrocodone Bitart ([place] 5-325 Mg) 2 tab Q4H PRN PO PAIN 6-10 Last administered on 08/19/17at 08:49; Start 08/19/17 at 09:00 Albumin Human 100 ml @ 60 mls/hr ONCE ONCE IV Last administered on 08/14/17at 16:08; Start 08/14/17 at 15:15; Stop 08/14/17 at 16:54; Status DC Albuterol/ Ipratropium (Duoneb Neb) 1 ampule Q6HR WHILE AWAKE NEB NEB Last administered on 08/18/17at 13:21; Start 08/14/17 at 20:00; Stop 08/18/17 at 19:59 ; Status DC Aspirin (Aspirin Chew) 81 mg DAILY CHEW Last administered on 08/20/17at 10:12; Start 08/14/17 at 09:00 Bisacodyl (Dulcolax Supp) 10 mg DAILY PRN RECTAL SEVERE CONSITIPATION; Start at 19:15 Dextrose/Sodium Chloride 500 ml @ 500 mls/hr BOLUS ONCE IV Last administered on 08/13/17at 19:41; Start 08/13/17 at 19:30; Stop 08/13/17 at 20:29; Status DC Diltiazem HCl (Cardizem Cd) 120 mg DAILY PO ; Start 08/15/17 at 10:00 Diltiazem HCl (Cardizem) 30 mg Q6HR PO Last administered on 08/15/17at 04:00; Start 08/14/17 at 12:00; Stop 08/15/17 at 09:59; Status DC Folic Acid (Folate) 1 mg HS PO Last administered on 08/20/17at 20:18; Start at 21:00 Furosemide (Lasix Inj) 40 mg BID@09,18 IV PUSH ; Start 08/14/17 at 09:00; Stop 08/14/17 at 09:00; Status DC Furosemide (Lasix) 40 mg DAILY PO Last administered on 08/20/17at 10:11; Start 08/19/17 at 10:30; Status Future Hold Heparin Sodium (Porcine) (Heparin Inj) 5,000 units Q12H SQ Last administered on 08/20/17at 20:19; Start 08/14/17 at 09:00 Lactulose (Lactulose Liq) 30 ml DAILY PRN PO SEVERE CONSITIPATION; Start at 19:15 Levothyroxine Sodium (Synthroid) 50 mcg DAILY@0600 PO Last administered on 08/21at 05:01; Start 08/14/17 at 06:00 Magnesium Hydroxide (Milk Of Magnesia Liq) 30 ml Q12H PRN PO Mild constipation ; Start 08/13/17 at 19:15 Morphine Sulfate (Morphine Inj) 2 mg Q3H PRN IV PUSH BREAKTHROUGH PAIN; Start 08/13/17 at 19:15 Ondansetron HCl (Zofran Inj) 4 mg Q6H PRN IVP NAUSEA OR VOMITING; Start at 19:15 Senna/Docusate Sodium (Sharon-Colace) 1 tab BID PO Last administered on 20:18; Start 08/13/17 at 21:00 Sennosides (Senokot) 17.2 mg Q12H PRN PO Moderate constipation; Start 08/13/17 at 19:15 Sodium Chloride (NS Flush) 2 ml BID IV FLUSH Last administered on 08/20/17at 20: 18; Start 08/13/17 at 21:00 Sodium Chloride (Sodium Chloride) 1 gm ONCE ONCE PO Last administered on at 15:18; Start 08/14/17 at 14:15; Stop 08/14/17 at 14:20; Status DC Temazepam (Restoril) 7.5 mg HS PRN PO INSOMNIA Last administered on 08/18/17at 23:54; Start 08/15/17 at 23:45 Tolvaptan (Samsca) 15 mg DAILY PO Last administered on 08/20/17at 15:13; Start 08/20/17 at 12:00 A/P Problem List: (1) Generalized weakness ICD Code: R53.1 - Weakness (2) Hypotension ICD Code: I95.9 - Hypotension, unspecified (3) CHF (congestive heart failure) ICD Code: I50.9 - Heart failure, unspecified Status: Acute (4) A-fib ICD Code: I48.91 - Unspecified atrial fibrillation (5) ELOINA (acute kidney injury) ICD Code: N17.9 - Acute kidney failure, unspecified Assessment and Plan Hyponatremia - improved. Generalized weakness Most likely secondary to cirrhosis of liver. Patient had this in the past. Need to be cautious with fluid due to CHF . Continue to monitor and encourage oral intake. received a dose of Samsca. sodium tablet discontinued. monitor renal function and electrolytes closely. Nephrology is following. continue PT. Hypotension-overall improved. BP still low-normal. hold lasix today. continue to monitor. Congestive heart failure, diastolic, chronic No exacerbation Monitor clinically Caution oral hydration evaluated by cardiology- f/u as outpatient. Acute kidney injury Slowly improving. Likely related to degree of diuresis Follow renal function Oral hydration Atrial fibrillation Rate controlled continue cardizem Follow on telemetry anticoagulation per his cardiology- as outpatient. DVT prophylaxis Heparin Discharge Planning d/w the patient; rehab was offered but the patient wants to go home. case management for [facility]. possible discharge early this week if sodium level continues to improve. Problem Qualifiers (1) A-fib: Qualified Codes: I48.2 - Chronic atrial fibrillation Anh Marcial MD Aug 21, 2017 09:04
[2017-08-21] MEDS: SODIUM CHLORIDE 0.9% FLUSH 10 ML FLUSH IV FLUSH SCH ×2 (09:19→21:03)
[2017-08-21] MEDS: ASPIRIN 81 MG CHEW TAB CHEW SCH (09:19)
[2017-08-21] MEDS: DOCUSATE SODIUM 50 MG/SENNA 8.6 MG TAB PO SCH ×2 (09:20→21:00)
[2017-08-21] MEDS: TOLVAPTAN 15 MG TAB PO SCH (09:21)
[2017-08-21] MEDS: HEPARIN SODIUM - SQ 10,000 UNITS/ML VIAL SQ SCH ×2 (09:22→21:00)
--- NOTE | 2017-08-21 09:32 | HHI.NPPN ---
Subjective Renal Failure: Acute Additional Remarks Patient is alert, no SOB, doing better. Review of Systems General Constitutional: Fatigue Respiratory Lungs: SOB, Cough Cardiovascular Cardiac: Edema Objective Data Data Vital Signs Date Time Temp Pulse Resp B/P (MAP) Pulse Ox O2 Delivery O2 Flow Rate FiO2 08/21/17 08:00 98.2 89 17 98/57 (71) 91 08/21/17 04:00 97.0 98 20 98/63 (75) 91 08/21/17 00:00 97.2 90 18 98/66 (77) 95 08/20/17 20:36 Nasal Cannula 3.00 Humidified 08/20/17 20:11 80 08/20/17 20:00 98.0 80 18 90/61 (71) 96 08/20/17 17:53 Nasal Cannula 3.50 08/20/17 16:00 97.8 86 20 81/58 (66) 96 85/56 (66) 08/20/17 12:00 97.5 99 20 91/60 (70) 91 -: 08/21/17 0745 Physical Exam General Appearance: Well Developed, Well Nourished, No Acute Distress, Comfortable Throat Throat Exam: Oral Mucosa [place] & Moist Neck Neck Exam: Neck Supple Pulmonary Resp Exam: Crackles, Rhonchi, Sputum, Decreased Bases, Labored Cardiology CV Exam: Normal Sinus Rhythm, Good Perfusion, Arrhythmia Gastrointestinal/Abdomen GI Exam: Soft, Non-Tender, Bowel Sounds Present, Distended Musculoskeletal MS Exam: Normal Gait, Normal Tone Integumentary Skin Exam: Clear, Warm, Dry, Intact Extremeties Extremities Exam: Moderate Edema Neurologic Neuro Exam: Alert, Awake, Oriented, Speech Clear, Moving All Extremities Assessment/Plan Discussed Condition With: Patient Assessment Summary: ELOINA/Acute Renal Failure, Dehydration, CHF, Hypertension Electrolyte Assessment: Hyponatremia Problem List: (1) Acute on chronic kidney failure ICD Codes: N17.9 - Acute kidney failure, unspecified; N18.9 - Chronic kidney disease, unspecified Status: Acute Plan: Resolving ELOINA, it was thought to be due to overdiuresis Renal function had improved, today is slightly worse Hold diuretics from today After discharge we have a preestablished appt with the patient in 2 weeks in CKD clinic. Avoid nephrotoxic agent PO Fluids encouraged Na. is better, 126, K is also better, Creatinine almost same. (2) Hyponatremia ICD Codes: E87.1 - Hypo-osmolality and hyponatremia Status: Acute Plan: Acute Off NaCl tabs given CHF Hold loop diuretic Of note he was on thiazide diuretics which can lower serum sodium levels Started tolvaptan yesterday,expected improvement, continue same dose no fluid restriction required repeat labs (3) A-fib ICD Codes: I48.91 - Unspecified atrial fibrillation Plan: Cardiology is following rate controlled currently (4) Hypotension ICD Codes: I95.9 - Hypotension, unspecified Plan: BP improved, continue to monitor (5) CHF (congestive heart failure) ICD Codes: I50.9 - Heart failure, unspecified Status: Acute Plan: Monitor fluid status CXR reviewed Diuretics held from today Plan Problem Qualifiers (1) Acute on chronic kidney failure: Qualified Codes: N17.9 - Acute kidney failure, unspecified; N18.9 - Chronic kidney disease, unspecified (2) A-fib: Qualified Codes: I48.2 - Chronic atrial fibrillation Jay Bernabe MD Aug 21, 2017 09:32
[2017-08-21] MEDS: ACETAMINOPHEN 325 MG TAB PO PRN (21:00)
[2017-08-21] MEDS: FOLIC ACID 1 MG TAB PO SCH (21:00)
[2017-08-22] VITALS (9 sets, daily range): BP systolic 83–94; BP diastolic 54–64; PULSE 57–89; RESP 16–20; TEMP 97.2–97.8; O2SAT 90–96
[2017-08-22] MEDS: LEVOTHYROXINE SODIUM 50 MCG TAB PO SCH (04:36)
[2017-08-22] MEDS: ACETAMINOPHEN 325 MG TAB PO PRN ×2 (04:36→22:53)
[2017-08-22 05:39] LABS: BICARBONATE 28.5 MEQ/L (21.0-32.0); CALCIUM 8.6 MG/DL (8.5-10.1); CREATININE 1.78 MG/DL (0.60-1.30)
[2017-08-22] MEDS: RESP: ALBUTEROL 2.5 MG/IPRATROPIUM 0.5 MG NEB (PRN) NEB ×2 (07:49→18:15)
[2017-08-22] MEDS: ASPIRIN 81 MG CHEW TAB CHEW SCH (08:51)
[2017-08-22] MEDS: DILTIAZEM-CD 120 MG CAP ER PO SCH (08:52)
[2017-08-22] MEDS: DOCUSATE SODIUM 50 MG/SENNA 8.6 MG TAB PO SCH ×2 (08:52→20:33)
[2017-08-22] MEDS: TOLVAPTAN 15 MG TAB PO SCH (08:53)
[2017-08-22] MEDS: SODIUM CHLORIDE 0.9% FLUSH 10 ML FLUSH IV FLUSH SCH ×2 (08:53→20:33)
[2017-08-22] MEDS: HEPARIN SODIUM - SQ 10,000 UNITS/ML VIAL SQ SCH ×2 (08:54→20:33)
--- NOTE | 2017-08-22 10:39 | HHI.PR ---
Subjective Remarks in no acute distress. complaining of some chest pain which is worse with deep inspiration. no fever. d/w the RN. Objective Vitals Vital Signs Date Time Temp Pulse Resp B/P (MAP) Pulse Ox O2 Delivery O2 Flow Rate FiO2 08/22/17 08:50 3.00 08/22/17 08:00 97.8 88 19 83/61 (68) 90 93/60 (71) 08/22/17 07:55 95 Nasal Cannula 4.00 08/22/17 04:00 97.2 89 20 94/63 (73) 96 08/22/17 00:00 97.3 74 20 94/57 (69) 94 08/21/17 22:18 18 08/21/17 22:04 3.00 08/21/17 22:04 78 08/21/17 20:00 97.5 84 22 99/62 (74) 95 08/21/17 16:00 98.0 85 19 90/56 (67) 92 08/21/17 15:00 Nasal Cannula 3.00 08/21/17 12:00 97.1 92 18 93/63 (73) 92 08/21/17 11:00 Nasal Cannula 3.00 I/O 08/21/17 08/21/17 08/21/17 08/22/17 08/22/17 08/22/17 07:00 15:00 23:00 07:00 15:00 23:00 Intake Total 720 ml 600 ml 360 ml Balance 720 ml 600 ml 360 ml Intake Oral 720 ml 600 ml 360 ml # Voids 3 5 3 # Bowel Movements 1 0 0 Result Diagram: 08/22/17 0444 Imaging Last Impressions Chest X-Ray 08/17/17 0000 Signed Impressions: Service Date/Time: Thursday, August 17, 2017 12:51 - CONCLUSION: 1. Cardiomegaly with interstitial vascular prominence characteristic of mild congestion. 2. Persistent but improved mild bibasilar airspace disease. Tim Barber MD Liver Ultrasound 08/16/17 0000 Signed Impressions: Service Date/Time: Wednesday, August 16, 2017 09:30 - CONCLUSION: 1. Cholelithiasis and sludge with no gallbladder wall thickening or biliary obstruction. 2. The liver is mildly prominent and heterogeneous with lobular contours consistent with history of cirrhosis. There is no focal mass. 3. Apparent trace ascitic fluid. Lopez Cedeno MD Objective Remarks GENERAL: This is a well-nourished, well-developed patient, in no apparent distress. CARDIOVASCULAR: Regular rate and regular rhythm without murmurs, gallops, or rubs. RESPIRATORY: Clear to auscultation. Breath sounds equal bilaterally. No wheezes , rales, or rhonchi. GASTROINTESTINAL: Abdomen soft, non-tender, nondistended. Normal, active bowel sounds MUSCULOSKELETAL:lower extremities with bilateral pedal edema. NEURO: Alert & Oriented x4 to person, place, time, situation. Moves all ext x4 Medications and IVs Inpatient Medications Acetaminophen (Tylenol) 650 mg Q6H PRN PO FEVER/PAIN SCALE 1 TO 2 Last administered on 08/22/17at 04:36; Start 08/13/17 at 19:15 Acetaminophen/ Hydrocodone Bitart ([place] 5-325 Mg) 2 tab Q4H PRN PO PAIN 6-10 Last administered on 08/19/17at 08:49; Start 08/19/17 at 09:00 Albumin Human 100 ml @ 60 mls/hr ONCE ONCE IV Last administered on 08/14/17 16:08; Start 08/14/17 at 15:15; Stop 08/14/17 at 16:54; Status DC Albuterol/ Ipratropium (Duoneb Neb) 1 ampule Q6HR WHILE AWAKE NEB NEB Last administered on 08/18/17at 13:21; Start 08/14/17 at 20:00; Stop 08/18/17 at 19:59 ; Status DC Aspirin (Aspirin Chew) 81 mg DAILY CHEW Last administered on 08/22/17at 08:51; Start 08/14/17 at 09:00 Bisacodyl (Dulcolax Supp) 10 mg DAILY PRN RECTAL SEVERE CONSITIPATION; Start at 19:15 Dextrose/Sodium Chloride 500 ml @ 500 mls/hr BOLUS ONCE IV Last administered on 08/13/17at 19:41; Start 08/13/17 at 19:30; Stop 08/13/17 at 20:29; Status DC Diltiazem HCl (Cardizem Cd) 120 mg DAILY PO Last administered on 08/22/17at 08:52 ; Start 08/15/17 at 10:00 Diltiazem HCl (Cardizem) 30 mg Q6HR PO Last administered on 08/15/17at 04:00; Start 08/14/17 at 12:00; Stop 08/15/17 at 09:59; Status DC Folic Acid (Folate) 1 mg HS PO Last administered on 08/21/17at 21:00; Start at 21:00 Furosemide (Lasix Inj) 40 mg BID@,18 IV PUSH ; Start 08/14/17 at 09:00; Stop 08/14/17 at 09:00; Status DC Furosemide (Lasix) 40 mg DAILY PO Last administered on 08/20/17at 10:11; Start 08/19/17 at 10:30; Status Future Hold Heparin Sodium (Porcine) (Heparin Inj) 5,000 units Q12H SQ Last administered on 08/22/17at 08:54; Start 08/14/17 at 09:00 Lactulose (Lactulose Liq) 30 ml DAILY PRN PO SEVERE CONSITIPATION; Start at 19:15 Levothyroxine Sodium (Synthroid) 50 mcg DAILY@0600 PO Last administered on 04:36; Start 08/14/17 at 06:00 Magnesium Hydroxide (Milk Of Magnesia Liq) 30 ml Q12H PRN PO Mild constipation ; Start 08/13/17 at 19:15 Morphine Sulfate (Morphine Inj) 2 mg Q3H PRN IV PUSH BREAKTHROUGH PAIN Last administered on 08/22/17at 10:21; Start 08/13/17 at 19:15 Ondansetron HCl (Zofran Inj) 4 mg Q6H PRN IVP NAUSEA OR VOMITING; Start at 19:15 Senna/Docusate Sodium (Sharon-Colace) 1 tab BID PO Last administered on at 21:00; Start 08/13/17 at 21:00 Sennosides (Senokot) 17.2 mg Q12H PRN PO Moderate constipation; Start 08/13/17 at 19:15 Sodium Chloride (NS Flush) 2 ml BID IV FLUSH Last administered on 08/22/17at 08: 53; Start 08/13/17 at 21:00 Sodium Chloride (Sodium Chloride) 1 gm ONCE ONCE PO Last administered on at 15:18; Start 08/14/17 at 14:15; Stop 08/14/17 at 14:20; Status DC Temazepam (Restoril) 7.5 mg HS PRN PO INSOMNIA Last administered on 08/18/17at 23:54; Start 08/15/17 at 23:45 Tolvaptan (Samsca) 15 mg DAILY PO Last administered on 08/22/17at 08:53; Start at 12:00 A/P Problem List: (1) Generalized weakness ICD Code: R53.1 - Weakness (2) Hypotension ICD Code: I95.9 - Hypotension, unspecified (3) CHF (congestive heart failure) ICD Code: I50.9 - Heart failure, unspecified Status: Acute (4) A-fib ICD Code: I48.91 - Unspecified atrial fibrillation (5) ELOINA (acute kidney injury) ICD Code: N17.9 - Acute kidney failure, unspecified Assessment and Plan Hyponatremia - improving. Generalized weakness Most likely secondary to cirrhosis of liver. Patient had this in the past. Need to be cautious with fluid due to CHF . Continue to monitor and encourage oral intake. received a dose of Samsca. sodium tablet discontinued. monitor renal function and electrolytes closely. Nephrology is following. continue PT. chest pain check CXR, EKG and troponin. Hypotension-overall improved. BP still low-normal. hold lasix today.hold Cardizem. continue to monitor. Congestive heart failure, diastolic, chronic No exacerbation Monitor clinically Caution oral hydration evaluated by cardiology- f/u as outpatient. Acute kidney injury Slowly improving. Likely related to degree of diuresis Follow renal function Oral hydration Atrial fibrillation Rate controlled continue cardizem Follow on telemetry anticoagulation per his cardiology- as outpatient. DVT prophylaxis Heparin Discharge Planning d/w the patient; rehab was offered but the patient wants to go home. case management for [facility]. possible discharge early this week if sodium level continues to improve-pending CXR today. Problem Qualifiers (1) A-fib: Qualified Codes: I48.2 - Chronic atrial fibrillation Anh Marcial MD Aug 22, 2017 10:39
--- NOTE | 2017-08-22 11:55 | RADRPT ---
EXAM DATE/TIME: 08/22/2017 10:57 [facility] COMPARISON: CHEST PA & LAT, August 17, 2017, 12:51. CHEST SINGLE AP, August 13, 2017, 17:39. INDICATIONS : Left lower chest pain for one day. MEDICAL HISTORY : Hypercholesterolemia. Hyperthyroidism. Osteoarthritis. COPD. Dyspnea. GERD. Renal disease. Renal fail ure. Musculoskeletal disorders. Arthritis. Gout. Cirrhosis. CHF. Shingles. SURGICAL HISTORY : Appendectomy. ENCOUNTER: Initial ACUITY: 1 day PAIN SCORE: 7/10 LOCATION: Left lower chest FINDINGS: A single AP portable semierect view of the chest was obtained and again demonstrates moderate to dain re cardiomegaly. There are streaky opacity remaining at the lung bases and mild perihilar opacity wit hout significant change. The costophrenic angle tips were cut off the exam. The bony thorax is intact . Atherosclerotic changes are present in the aorta. CONCLUSION: No significant change. Cardiomegaly with mild perihilar and bibasilar opacities. Lopez Cedeno MD on August 22, 2017 at 11:51 Board Certified Radiologist. This report was verified electronically.
--- NOTE | 2017-08-22 12:12 | EKG ---
Date Performed: 08/22/2017 Time Performed: 10:57:19 PTAGE: 71 years EKG: ATRIAL FIBRILLATION INCOMPLETE RIGHT BUNDLE BRANCH BLOCK RIGHT VENTRICULAR HYPERTROPHY AND ST-T CHANGE ABNORMAL ECG PREVIOUS TRACING : 08/14/2017 11.59 Since the previous tracing, no significant change noted DOCTOR: Jason Cherry Interpretating Date/Time 08/22/2017 12:10:51
--- NOTE | 2017-08-22 12:52 | HHI.NPPN ---
Subjective Renal Failure: Acute Additional Remarks Patient is alert, now has left sided chest pain started early AM, no SOB, continue pain, increase with respiration. Review of Systems General Constitutional: Fatigue Respiratory Lungs: SOB, Cough Cardiovascular Cardiac: Edema Objective Data Data Vital Signs Date Time Temp Pulse Resp B/P (MAP) Pulse Ox O2 Delivery O2 Flow Rate FiO2 08/22/17 08:50 3.00 08/22/17 08:00 97.8 88 19 83/61 (68) 90 93/60 (71) 08/22/17 07:55 95 Nasal Cannula 4.00 08/22/17 04:00 97.2 89 20 94/63 (73) 96 08/22/17 00:00 97.3 74 20 94/57 (69) 94 08/21/17 22:18 18 08/21/17 22:04 3.00 08/21/17 22:04 78 08/21/17 20:00 97.5 84 22 99/62 (74) 95 08/21/17 16:00 98.0 85 19 90/56 (67) 92 08/21/17 15:00 Nasal Cannula 3.00 -: 08/22/17 0444 Physical Exam General Appearance: Well Developed, Well Nourished, No Acute Distress, Comfortable Throat Throat Exam: Oral Mucosa [place] & Moist Neck Neck Exam: Neck Supple Pulmonary Resp Exam: Crackles, Rhonchi, Sputum, Decreased Bases, Labored Cardiology CV Exam: Normal Sinus Rhythm, Good Perfusion, Arrhythmia Gastrointestinal/Abdomen GI Exam: Soft, Non-Tender, Bowel Sounds Present, Distended Musculoskeletal MS Exam: Normal Gait, Normal Tone Integumentary Skin Exam: Clear, Warm, Dry, Intact Extremeties Extremities Exam: Moderate Edema Neurologic Neuro Exam: Alert, Awake, Oriented, Speech Clear, Moving All Extremities Assessment/Plan Discussed Condition With: Patient Assessment Summary: ELOINA/Acute Renal Failure, Dehydration, CHF, Hypertension Electrolyte Assessment: Hyponatremia Problem List: (1) Acute on chronic kidney failure ICD Codes: N17.9 - Acute kidney failure, unspecified; N18.9 - Chronic kidney disease, unspecified Status: Acute Plan: Resolving ELOINA, it was thought to be due to overdiuresis Renal function is stable ,Creatinine is 1.7. After discharge we have a preestablished appt with the patient in 2 weeks in CKD clinic. Avoid nephrotoxic agent PO Fluids encouraged Na. is better, 127, K is also better, Creatinine almost same, 1.7. Chest pain is most likely atypical, work up initiated. CXR noted. (2) Hyponatremia ICD Codes: E87.1 - Hypo-osmolality and hyponatremia Status: Acute Plan: Acute Off NaCl tabs given CHF Hold loop diuretic Of note he was on thiazide diuretics which can lower serum sodium levels Started tolvaptan yesterday,expected improvement, continue same dose no fluid restriction required repeat labs (3) A-fib ICD Codes: I48.91 - Unspecified atrial fibrillation Plan: Cardiology is following rate controlled currently (4) Hypotension ICD Codes: I95.9 - Hypotension, unspecified Plan: BP improved, continue to monitor (5) CHF (congestive heart failure) ICD Codes: I50.9 - Heart failure, unspecified Status: Acute Plan: Monitor fluid status CXR reviewed Diuretics held from today Plan Problem Qualifiers (1) Acute on chronic kidney failure: Qualified Codes: N17.9 - Acute kidney failure, unspecified; N18.9 - Chronic kidney disease, unspecified (2) A-fib: Qualified Codes: I48.2 - Chronic atrial fibrillation Jay Bernabe MD Aug 22, 2017 12:52
[2017-08-22] MEDS: ACETAMINOPHEN/HYDROcodone 325 MG/5 MG TAB PO PRN (16:23)
[2017-08-22] MEDS: FOLIC ACID 1 MG TAB PO SCH (20:33)
[2017-08-23] VITALS (8 sets, daily range): BP systolic 90–105; BP diastolic 59–68; PULSE 51–81; RESP 18–20; TEMP 96.6–97.7; O2SAT 91–98
[2017-08-23] MEDS: LEVOTHYROXINE SODIUM 50 MCG TAB PO SCH (04:19)
[2017-08-23 08:30] LABS: ALBUMIN 2.3 GM/DL (3.4-5.0); BICARBONATE 28.4 MEQ/L (21.0-32.0); CALCIUM 8.8 MG/DL (8.5-10.1); CREATININE 1.95 MG/DL (0.60-1.30); PHOSPHORUS 4.1 MG/DL (2.5-4.9)
[2017-08-23] MEDS: TOLVAPTAN 15 MG TAB PO SCH (09:00)
[2017-08-23] MEDS: ASPIRIN 81 MG CHEW TAB CHEW SCH (09:04)
[2017-08-23] MEDS: SODIUM CHLORIDE 0.9% FLUSH 10 ML FLUSH IV FLUSH SCH ×2 (09:04→21:55)
[2017-08-23] MEDS: DOCUSATE SODIUM 50 MG/SENNA 8.6 MG TAB PO SCH ×2 (09:04→21:56)
[2017-08-23] MEDS: HEPARIN SODIUM - SQ 10,000 UNITS/ML VIAL SQ SCH ×2 (09:05→21:55)
[2017-08-23] MEDS: ACETAMINOPHEN 325 MG TAB PO PRN (09:11)
[2017-08-23] MEDS ORDERED: DEXTROSE 50% IN WATER 50 ML VIAL(D50) IV PUSH ONE (10:15)
[2017-08-23] MEDS ORDERED: INSULIN HUMAN REGULAR 1,000 UNITS/10 ML VIAL IV PUSH ONE ×2 (10:15→13:00)
--- NOTE | 2017-08-23 10:48 | HHI.NPPN ---
Subjective Renal Failure: Acute Interval History He is up in a chair. Creatinine higher, sodium is lower. He is also hyperkalemic , he has been eating bananas recently. (Lesia Alvares) Review of Systems General Constitutional: Fatigue (Lesia Alvares) Respiratory Lungs: SOB, Cough (Lesia Alvares) Cardiovascular Cardiac: Edema (Lesia Alvares) Objective Data Data Vital Signs Date Time Temp Pulse Resp B/P (MAP) Pulse Ox O2 Delivery O2 Flow Rate FiO2 08/23/17 08:00 97.6 71 19 105/68 (80) 92 08/23/17 04:00 97.2 67 20 93/59 (70) 93 08/23/17 04:00 51 08/22/17 23:58 97.7 57 20 86/54 (65) 90 08/22/17 23:54 18 08/22/17 20:00 97.7 78 18 92/57 (69) 93 08/22/17 20:00 Nasal Cannula 3.00 08/22/17 18:15 94 Nasal Cannula 4.00 08/22/17 16:00 97.7 78 16 91/58 (69) 92 08/22/17 12:00 97.8 86 18 91/64 (73) 90 (Lesia Alvares) -: 08/23/17 0620 Imaging Last 72 hours Impressions Chest X-Ray 08/22/17 0000 Signed Impressions: Service Date/Time: Tuesday, August 22, 2017 10:57 - CONCLUSION: No significant change. Cardiomegaly with mild perihilar and bibasilar opacities. Lopez Cedeno MD (Lesia Alvares) Physical Exam General Appearance: Well Developed, Well Nourished, No Acute Distress, Comfortable (Lesia Alvares) Throat Throat Exam: Oral Mucosa [place] & Moist (Lesia Alvares) Neck Neck Exam: Neck Supple (Lesia Alvares) Pulmonary Resp Exam: Crackles, Rhonchi, Sputum, Decreased Bases, Labored (Lesia Alvares) Cardiology CV Exam: Normal Sinus Rhythm, Good Perfusion, Arrhythmia (Lesia Alvares) Gastrointestinal/Abdomen GI Exam: Soft, Non-Tender, Bowel Sounds Present, Distended (Lesia Alvares) Musculoskeletal MS Exam: Normal Gait, Normal Tone (Lesia Alvares [employer]) Integumentary Skin Exam: Clear, Warm, Dry, Intact (Lesia Alvares [employer]) Extremeties Extremities Exam: Moderate Edema (Lesia Alvares) Neurologic Neuro Exam: Alert, Awake, Oriented, Speech Clear, Moving All Extremities (Lesia Alvares) Assessment/Plan Discussed Condition With: Patient Assessment Summary: ELOINA/Acute Renal Failure, Dehydration, CHF, Hypertension Electrolyte Assessment: Hyponatremia Problem List: (1) Acute on chronic kidney failure ICD Codes: N17.9 - Acute kidney failure, unspecified; N18.9 - Chronic kidney disease, unspecified Status: Acute Plan: Resolving ELOINA, it was thought to be due to overdiuresis Renal function is slightly worse but overall stable. Low K diet ordered, treat hyperkalemia and repeat labs. After discharge we have a preestablished appt with the patient in 2 weeks in CKD clinic. Avoid nephrotoxic agent PO Fluids encouraged After discharge we have a preestablished appt with the patient in 2 weeks in CKD clinic. (2) Hyponatremia ICD Codes: E87.1 - Hypo-osmolality and hyponatremia Status: Acute Plan: Acute Of note prior to arrival he was on thiazide diuretics which can lower serum sodium levels On tolvaptan, increase to 30 mg per day no fluid restriction required repeat labs On loop diuretic (3) A-fib ICD Codes: I48.91 - Unspecified atrial fibrillation Plan: Cardiology is following rate controlled currently (4) Hypotension ICD Codes: I95.9 - Hypotension, unspecified Plan: BP improved, continue to monitor (5) CHF (congestive heart failure) ICD Codes: I50.9 - Heart failure, unspecified Status: Acute Plan: Monitor fluid status Resume Lasix PO (6) Hyperkalemia ICD Codes: E87.5 - Hyperkalemia Plan: Diet related also due to reduction in GFR Repeat labs Plan (Lesia Alvares) Plan patient was seen and examined. Agree with above assessment and plan. Treat hyperkalemia, increase Tolvaptan to 30 mg PO daily. Order AM cortisol level. (Amando Webber MD) Problem Qualifiers (1) Acute on chronic kidney failure: Qualified Codes: N17.9 - Acute kidney failure, unspecified; N18.9 - Chronic kidney disease, unspecified (2) A-fib: Qualified Codes: I48.2 - Chronic atrial fibrillation Lesia Alvares Aug 23, 2017 10:47 Amando Webber MD Aug 23, 2017 14:37
--- NOTE | 2017-08-23 11:55 | HHI.PR ---
Subjective Remarks in no acute distress. denies pain today. looks and feels better. Objective Vitals Vital Signs Date Time Temp Pulse Resp B/P (MAP) Pulse Ox O2 Delivery O2 Flow Rate FiO2 08/23/17 09:30 3.00 08/23/17 09:30 71 08/23/17 08:58 91 Nasal Cannula 3.50 08/23/17 08:00 97.6 71 19 105/68 (80) 92 08/23/17 04:00 97.2 67 20 93/59 (70) 93 08/23/17 04:00 51 08/22/17 23:58 97.7 57 20 86/54 (65) 90 08/22/17 23:54 18 08/22/17 20:00 97.7 78 18 92/57 (69) 93 08/22/17 20:00 Nasal Cannula 3.00 08/22/17 18:15 94 Nasal Cannula 4.00 08/22/17 16:00 97.7 78 16 91/58 (69) 92 08/22/17 12:00 97.8 86 18 91/64 (73) 90 I/O 08/22/17 08/22/17 08/22/17 08/23/17 08/23/17 08/23/17 07:00 15:00 23:00 07:00 15:00 23:00 Intake Total 360 ml 400 ml 240 ml Output Total 400 ml Balance 360 ml 0 ml 240 ml Intake Oral 360 ml 400 ml 240 ml Output Urine Total 400 ml # Voids 3 1 2 # Bowel Movements 0 1 0 Result Diagram: 08/23/17 0620 Imaging Last Impressions Chest X-Ray 08/22/17 0000 Signed Impressions: Service Date/Time: Tuesday, August 22, 2017 10:57 - CONCLUSION: No significant change. Cardiomegaly with mild perihilar and bibasilar opacities. Lopez Cedeno MD Liver Ultrasound 08/16/17 0000 Signed Impressions: Service Date/Time: Wednesday, August 16, 2017 09:30 - CONCLUSION: 1. Cholelithiasis and sludge with no gallbladder wall thickening or biliary obstruction. 2. The liver is mildly prominent and heterogeneous with lobular contours consistent with history of cirrhosis. There is no focal mass. 3. Apparent trace ascitic fluid. Lopez Cedeno MD Objective Remarks GENERAL: This is a well-nourished, well-developed patient, in no apparent distress. CARDIOVASCULAR: Regular rate and regular rhythm without murmurs, gallops, or rubs. RESPIRATORY: Clear to auscultation. Breath sounds equal bilaterally. No wheezes , rales, or rhonchi. GASTROINTESTINAL: Abdomen soft, non-tender, nondistended. Normal, active bowel sounds MUSCULOSKELETAL:lower extremities with bilateral pedal edema. NEURO: Alert & Oriented x4 to person, place, time, situation. Moves all ext x4 Medications and IVs Inpatient Medications Acetaminophen (Tylenol) 650 mg Q6H PRN PO FEVER/PAIN SCALE 1 TO 2 Last administered on 08/23/17at 09:11; Start 08/13/17 at 19:15 Acetaminophen/ Hydrocodone Bitart ([place] 5-325 Mg) 2 tab Q4H PRN PO PAIN 6-10 Last administered on 08/22/17at 16:23; Start 08/19/17 at 09:00 Albumin Human 100 ml @ 60 mls/hr ONCE ONCE IV Last administered on 08/14/17at 16:08; Start 08/14/17 at 15:15; Stop 08/14/17 at 16:54; Status DC Albuterol/ Ipratropium (Duoneb Neb) 1 ampule Q6HR WHILE AWAKE NEB NEB Last administered on 08/18/17at 13:21; Start 08/14/17 at 20:00; Stop 08/18/17 at 19:59 ; Status DC Aspirin (Aspirin Chew) 81 mg DAILY CHEW Last administered on 08/23/17at 09:04; Start 08/14/17 at 09:00 Bisacodyl (Dulcolax Supp) 10 mg DAILY PRN RECTAL SEVERE CONSITIPATION; Start at 19:15 Dextrose (D50w (Vial) Inj) 50 ml ONCE ONCE IV PUSH ; Start 08/23/17 at 10:15; Stop 08/23/17 at 10:51; Status DC Dextrose/Sodium Chloride 500 ml @ 500 mls/hr BOLUS ONCE IV Last administered on 08/13/17at 19:41; Start 08/13/17 at 19:30; Stop 08/13/17 at 20:29; Status DC Diltiazem HCl (Cardizem Cd) 120 mg DAILY PO Last administered on 08/22/17at 08:52 ; Start 08/15/17 at 10:00; Status Future Hold Diltiazem HCl (Cardizem) 30 mg Q6HR PO Last administered on 08/15/17at 04:00; Start 08/14/17 at 12:00; Stop 08/15/17 at 09:59; Status DC Folic Acid (Folate) 1 mg HS PO Last administered on 08/22/17at 20:33; Start 08/13 at 21:00 Furosemide (Lasix Inj) 40 mg BID@,18 IV PUSH ; Start 08/14/17 at 09:00; Stop 08/14/17 at 09:00; Status DC Furosemide (Lasix) 40 mg DAILY PO Last administered on 08/20/17at 10:11; Start 08/19/17 at 10:30; Status Future hold Heparin Sodium (Porcine) (Heparin Inj) 5,000 units Q12H SQ Last administered on 08/23/17at 09:05; Start 08/14/17 at 09:00 Insulin Human Regular (NovoLIN R INJ) 10 units ONCE ONCE IV PUSH ; Start at 10:15; Stop 08/23/17 at 10:51; Status DC Lactulose (Lactulose Liq) 30 ml DAILY PRN PO SEVERE CONSITIPATION; Start at 19:15 Levothyroxine Sodium (Synthroid) 50 mcg DAILY@0600 PO Last administered on at 04:19; Start 08/14/17 at 06:00 Magnesium Hydroxide (Milk Of Magnesia Liq) 30 ml Q12H PRN PO Mild constipation ; Start 08/13/17 at 19:15 Morphine Sulfate (Morphine Inj) 2 mg Q3H PRN IV PUSH BREAKTHROUGH PAIN Last administered on 08/22/17at 10:21; Start 08/13/17 at 19:15 Ondansetron HCl (Zofran Inj) 4 mg Q6H PRN IVP NAUSEA OR VOMITING; Start at 19:15 Senna/Docusate Sodium (Sharon-Colace) 1 tab BID PO Last administered on 08/23/17at 09:04; Start 08/13/17 at 21:00 Sennosides (Senokot) 17.2 mg Q12H PRN PO Moderate constipation; Start 08/13/17 at 19:15 Sodium Chloride (NS Flush) 2 ml BID IV FLUSH Last administered on 08/23/17at 09: 04; Start 08/13/17 at 21:00 Sodium Chloride (Sodium Chloride) 1 gm ONCE ONCE PO Last administered on at 15:18; Start 08/14/17 at 14:15; Stop 08/14/17 at 14:20; Status DC Temazepam (Restoril) 7.5 mg HS PRN PO INSOMNIA Last administered on 08/18/17at 23:54; Start 08/15/17 at 23:45 Tolvaptan (Samsca) 15 mg DAILY PO Last administered on 08/23/17at 09:00; Start at 12:00 A/P Problem List: (1) Generalized weakness ICD Code: R53.1 - Weakness (2) Hypotension ICD Code: I95.9 - Hypotension, unspecified (3) CHF (congestive heart failure) ICD Code: I50.9 - Heart failure, unspecified Status: Acute (4) A-fib ICD Code: I48.91 - Unspecified atrial fibrillation (5) ELOINA (acute kidney injury) ICD Code: N17.9 - Acute kidney failure, unspecified Assessment and Plan Hyponatremia - improving. Generalized weakness Most likely secondary to cirrhosis of liver. Patient had this in the past. Need to be cautious with fluid due to CHF . Continue to monitor and encourage oral intake. started on Samsca. sodium tablet discontinued. monitor renal function and electrolytes closely. Nephrology is following. continue PT. chest pain- atypical -resolved. EKG with no acute ST-T changes and troponin negative. hyperkalemia insulin and dextrose ordered- will repeat the potassium level this afternoon. Hypotension-overall improved. BP still low-normal. hold lasix .hold Cardizem. continue to monitor. Congestive heart failure, diastolic, chronic No exacerbation Monitor clinically Caution oral hydration evaluated by cardiology- f/u as outpatient. Acute kidney injury Slowly improving. Likely related to degree of diuresis Follow renal function Oral hydration Atrial fibrillation Rate controlled continue cardizem Follow on telemetry anticoagulation per his cardiology- as outpatient. DVT prophylaxis Heparin Discharge Planning d/w the patient; rehab was offered but the patient wants to go home. case management for [facility]. possible discharge within the next 24-48 hrs if stable with improved electrolytes and stable renal function. Problem Qualifiers (1) A-fib: Qualified Codes: I48.2 - Chronic atrial fibrillation Anh Marcial MD Aug 23, 2017 11:55
[2017-08-23] MEDS: RESP: ALBUTEROL 2.5 MG/IPRATROPIUM 0.5 MG NEB (PRN) NEB ×2 (15:55→21:23)
[2017-08-23] MEDS: FOLIC ACID 1 MG TAB PO SCH (21:53)
[2017-08-24] VITALS: BP 99/57; PULSE 75; RESP 16; TEMP 97; O2SAT 99
[2017-08-24 04:00] VITALS: BP 104/70; PULSE 90; RESP 18; TEMP 97.3; O2SAT 94
[2017-08-24] MEDS: LEVOTHYROXINE SODIUM 50 MCG TAB PO SCH (05:27)
[2017-08-24 08:00] VITALS: BP 105/64; PULSE 86; RESP 20; TEMP 97.8; O2SAT 91
[2017-08-24] MEDS: HEPARIN SODIUM - SQ 10,000 UNITS/ML VIAL SQ SCH (08:11)
[2017-08-24] MEDS: ASPIRIN 81 MG CHEW TAB CHEW SCH (08:12)
[2017-08-24] MEDS: TOLVAPTAN 15 MG TAB PO SCH (08:12)
[2017-08-24] MEDS: FUROSEMIDE 40 MG TAB PO SCH (08:12)
[2017-08-24] MEDS: DOCUSATE SODIUM 50 MG/SENNA 8.6 MG TAB PO SCH (08:12)
[2017-08-24] MEDS: SODIUM CHLORIDE 0.9% FLUSH 10 ML FLUSH IV FLUSH SCH (08:13)
[2017-08-24 09:39] VITALS: O2SAT 93
[2017-08-24 09:40] LABS: BICARBONATE 27.5 MEQ/L (21.0-32.0); CREATININE 1.94 MG/DL (0.60-1.30)
--- NOTE | 2017-08-24 11:04 | HHI.NPPN ---
Subjective Renal Failure: Acute Interval History Sodium is slightly better. Creatinine is stable. (Lesia Alvares) Review of Systems General Constitutional: Fatigue (Lesia Alvares) Respiratory Lungs: SOB, Cough (Lesia Alvares) Cardiovascular Cardiac: Edema (Lesia Alvares) Objective Data Data Vital Signs Date Time Temp Pulse Resp B/P (MAP) Pulse Ox O2 Delivery O2 Flow Rate FiO2 08/24/17 09:39 93 Nasal Cannula 3.50 08/24/17 08:22 4.00 08/24/17 04:00 97.3 90 18 104/70 (81) 94 08/24/17 00:00 97.0 75 16 99/57 (71) 99 08/23/17 21:58 Nasal Cannula 3.00 08/23/17 21:25 98 Nasal Cannula 3.50 08/23/17 20:00 96.6 81 18 103/62 (76) 97 08/23/17 16:00 97.2 80 18 94/59 (71) 94 08/23/17 12:00 97.7 79 19 90/60 (70) 93 (Lesia Alvares) -: 08/24/17 0901 Imaging Last 72 hours Impressions Chest X-Ray 08/22/17 0000 Signed Impressions: Service Date/Time: Tuesday, August 22, 2017 10:57 - CONCLUSION: No significant change. Cardiomegaly with mild perihilar and bibasilar opacities. Lopez Cedeno MD (Lesia Alvares) Physical Exam General Appearance: Well Developed, Well Nourished, No Acute Distress, Comfortable (Lesia Alvares) Throat Throat Exam: Oral Mucosa [place] & Moist (Lesia Alvares) Neck Neck Exam: Neck Supple (Lesia Alvares) Pulmonary Resp Exam: Crackles, Rhonchi, Sputum, Decreased Bases, Labored (Lesia Alvares) Cardiology CV Exam: Normal Sinus Rhythm, Good Perfusion, Arrhythmia (Lesia Alvares) Gastrointestinal/Abdomen GI Exam: Soft, Non-Tender, Bowel Sounds Present, Distended (Lesia Alvares) Musculoskeletal MS Exam: Normal Gait, Normal Tone (Lesia Alvares) Integumentary Skin Exam: Clear, Warm, Dry, Intact (Lesia Alvares) Extremeties Extremities Exam: Moderate Edema (Lesia Alvares [employer]) Neurologic Neuro Exam: Alert, Awake, Oriented, Speech Clear, Moving All Extremities (Lesia Alvares) Assessment/Plan Discussed Condition With: Patient Assessment Summary: ELOINA/Acute Renal Failure, Dehydration, CHF, Hypertension Electrolyte Assessment: Hyponatremia Problem List: (1) Acute on chronic kidney failure ICD Codes: N17.9 - Acute kidney failure, unspecified; N18.9 - Chronic kidney disease, unspecified Status: Acute Plan: Underlying CKD. Renal function is stable. Potassium has improved Keep on lasix 40 mg po daily After discharge we have a preestablished appt with the patient in 2 weeks in CKD clinic. Avoid nephrotoxic agent PO Fluids encouraged with 40 oz fluid restriction (2) Hyponatremia ICD Codes: E87.1 - Hypo-osmolality and hyponatremia Status: Acute Plan: Acute On loop diuretic PO Fluid restriction. (3) A-fib ICD Codes: I48.91 - Unspecified atrial fibrillation Plan: Cardiology is following rate controlled currently (4) Hypotension ICD Codes: I95.9 - Hypotension, unspecified Plan: BP improved, continue to monitor (5) CHF (congestive heart failure) ICD Codes: I50.9 - Heart failure, unspecified Status: Acute Plan: Monitor fluid status On Lasix PO (6) Hyperkalemia ICD Codes: E87.5 - Hyperkalemia Plan: Diet related improved Plan cleared for discharge from renal perspective (Lesia Alvares) Plan patient was seen and examined. Agree with above assessment and plan. (Amando Webber MD) Problem Qualifiers (1) Acute on chronic kidney failure: Qualified Codes: N17.9 - Acute kidney failure, unspecified; N18.9 - Chronic kidney disease, unspecified (2) A-fib: Qualified Codes: I48.2 - Chronic atrial fibrillation Lesia Alvares Aug 24, 2017 11:04 Amando Webber MD Aug 24, 2017 14:19
--- NOTE | 2017-08-24 11:34 | HHI.PR ---
Subjective Remarks in no acute distress. overall doing fine. no new complaints. d/w the RN and no acute issues over night. Objective Vitals Vital Signs Date Time Temp Pulse Resp B/P (MAP) Pulse Ox O2 Delivery O2 Flow Rate FiO2 08/24/17 09:39 93 Nasal Cannula 3.50 08/24/17 08:22 4.00 08/24/17 04:00 97.3 90 18 104/70 (81) 94 08/24/17 00:00 97.0 75 16 99/57 (71) 99 08/23/17 21:58 Nasal Cannula 3.00 08/23/17 21:25 98 Nasal Cannula 3.50 08/23/17 20:00 96.6 81 18 103/62 (76) 97 08/23/17 16:00 97.2 80 18 94/59 (71) 94 08/23/17 12:00 97.7 79 19 90/60 (70) 93 I/O 08/23/17 08/23/17 08/23/17 08/24/17 08/24/17 08/24/17 07:00 15:00 23:00 07:00 15:00 23:00 Intake Total 240 ml 720 ml Balance 240 ml 720 ml Intake Oral 240 ml 720 ml IV Total 0 ml # Voids 2 4 2 # Bowel Movements 0 0 Result Diagram: 08/24/17 0901 Imaging Last Impressions Chest X-Ray 08/22/17 0000 Signed Impressions: Service Date/Time: Tuesday, August 22, 2017 10:57 - CONCLUSION: No significant change. Cardiomegaly with mild perihilar and bibasilar opacities. Lopez Cedeno MD Liver Ultrasound 08/16/17 0000 Signed Impressions: Service Date/Time: Wednesday, August 16, 2017 09:30 - CONCLUSION: 1. Cholelithiasis and sludge with no gallbladder wall thickening or biliary obstruction. 2. The liver is mildly prominent and heterogeneous with lobular contours consistent with history of cirrhosis. There is no focal mass. 3. Apparent trace ascitic fluid. Lopez Cedeno MD Objective Remarks GENERAL: This is a well-nourished, well-developed patient, in no apparent distress. CARDIOVASCULAR: Regular rate and regular rhythm without murmurs, gallops, or rubs. RESPIRATORY: Clear to auscultation. Breath sounds equal bilaterally. No wheezes , rales, or rhonchi. GASTROINTESTINAL: Abdomen soft, non-tender, nondistended. Normal, active bowel sounds MUSCULOSKELETAL:lower extremities with bilateral pedal edema. NEURO: Alert & Oriented x4 to person, place, time, situation. Moves all ext x4 Procedures none Medications and IVs Inpatient Medications Acetaminophen (Tylenol) 650 mg Q6H PRN PO FEVER/PAIN SCALE 1 TO 2 Last administered on 08/23/17at 09:11; Start 08/13/17 at 19:15 Acetaminophen/ Hydrocodone Bitart ([place] 5-325 Mg) 2 tab Q4H PRN PO PAIN 6-10 Last administered on 08/22/17 16:23; Start 08/19/17 at 09:00 Albumin Human 100 ml @ 60 mls/hr ONCE ONCE IV Last administered on 08/14/17 16:08; Start 08/14/17 at 15:15; Stop 08/14/17 at 16:54; Status DC Albuterol/ Ipratropium (Duoneb Neb) 1 ampule Q6HR WHILE AWAKE NEB NEB Last administered on 08/18/17at 13:21; Start 08/14/17 at 20:00; Stop 08/18/17 at 19:59 ; Status DC Aspirin (Aspirin Chew) 81 mg DAILY CHEW Last administered on 08/24/17 08:12; Start 08/14/17 at 09:00 Bisacodyl (Dulcolax Supp) 10 mg DAILY PRN RECTAL SEVERE CONSITIPATION; Start at 19:15 Dextrose (D50w (Vial) Inj) 50 ml ONCE ONCE IV PUSH Last administered on at 10:15; Start 08/23/17 at 10:15; Stop 08/23/17 at 10:51; Status DC Dextrose/Sodium Chloride 500 ml @ 500 mls/hr BOLUS ONCE IV Last administered on 08/13/17at 19:41; Start 08/13/17 at 19:30; Stop 08/13/17 at 20:29; Status DC Diltiazem HCl (Cardizem Cd) 120 mg DAILY PO Last administered on 08/22/17at 08:52 ; Start 08/15/17 at 10:00; Status Future Hold Diltiazem HCl (Cardizem) 30 mg Q6HR PO Last administered on 08/15/17 04:00; Start 08/14/17 at 12:00; Stop 08/15/17 at 09:59; Status DC Folic Acid (Folate) 1 mg HS PO Last administered on 08/23/17at 21:53; Start 08/13 at 21:00 Furosemide (Lasix Inj) 40 mg BID@09,18 IV PUSH ; Start 08/14/17 at 09:00; Stop 08/14/17 at 09:00; Status DC Furosemide (Lasix) 40 mg DAILY PO Last administered on 08/24/17 08:12; Start at 10:30; Status Future hold Heparin Sodium (Porcine) (Heparin Inj) 5,000 units Q12H SQ Last administered on 08/24/17 08:11; Start 08/14/17 at 09:00 Insulin Human Regular (NovoLIN R INJ) 5 units ONCE ONCE IV PUSH Last administered on 08/23/17 12:27; Start 08/23/17 at 13:00; Stop 08/23/17 at 13:01; Status DC Lactulose (Lactulose Liq) 30 ml DAILY PRN PO SEVERE CONSITIPATION; Start at 19:15 Levothyroxine Sodium (Synthroid) 50 mcg DAILY@0600 PO Last administered on 05:27; Start 08/14/17 at 06:00 Magnesium Hydroxide (Milk Of Magnesia Liq) 30 ml Q12H PRN PO Mild constipation ; Start 08/13/17 at 19:15 Morphine Sulfate (Morphine Inj) 2 mg Q3H PRN IV PUSH BREAKTHROUGH PAIN Last administered on 08/22/17at 10:21; Start 08/13/17 at 19:15 Ondansetron HCl (Zofran Inj) 4 mg Q6H PRN IVP NAUSEA OR VOMITING; Start at 19:15 Senna/Docusate Sodium (Sharon-Colace) 1 tab BID PO Last administered on 08/24/17at 08:12; Start 08/13/17 at 21:00 Sennosides (Senokot) 17.2 mg Q12H PRN PO Moderate constipation; Start 08/13/17 at 19:15 Sodium Chloride (NS Flush) 2 ml BID IV FLUSH Last administered on 08/24/17at 08: 13; Start 08/13/17 at 21:00 Sodium Chloride (Sodium Chloride) 1 gm ONCE ONCE PO Last administered on at 15:18; Start 08/14/17 at 14:15; Stop 08/14/17 at 14:20; Status DC Temazepam (Restoril) 7.5 mg HS PRN PO INSOMNIA Last administered on 08/18/17at 23:54; Start 08/15/17 at 23:45 Tolvaptan (Samsca) 15 mg DAILY PO Last administered on 08/24/17at 08:12; Start at 12:00 A/P Problem List: (1) Generalized weakness ICD Code: R53.1 - Weakness (2) Hypotension ICD Code: I95.9 - Hypotension, unspecified (3) CHF (congestive heart failure) ICD Code: I50.9 - Heart failure, unspecified Status: Acute (4) A-fib ICD Code: I48.91 - Unspecified atrial fibrillation (5) ELOINA (acute kidney injury) ICD Code: N17.9 - Acute kidney failure, unspecified Assessment and Plan Hyponatremia - improving. Generalized weakness Most likely secondary to cirrhosis of liver. Patient had this in the past. started on Samsca. Nephrology f/u appreciated and cleared for discharge. continue PT. chest pain- atypical -resolved. EKG with no acute ST-T changes and troponin negative. hyperkalemia resolved. Hypotension-overall improved. BP still low-normal. hold lasix .hold Cardizem. continue to monitor. Congestive heart failure, diastolic, chronic No exacerbation Monitor clinically Caution oral hydration evaluated by cardiology- f/u as outpatient. Acute kidney injury Slowly improving. Likely related to degree of diuresis Follow renal function Oral hydration Atrial fibrillation Rate controlled continue cardizem Follow on telemetry anticoagulation per his cardiology- as outpatient. DVT prophylaxis Heparin Discharge Planning d/w the patient; rehab was offered but the patient wants to go home. case management for [facility]. dc home today. see med list. d/w the patient, RN and case management. time spent 35 min. Problem Qualifiers (1) A-fib: Qualified Codes: I48.2 - Chronic atrial fibrillation Anh Marcial MD Aug 24, 2017 11:34
[2017-08-24] MEDS ORDERED: DILT120C50 PO (11:37)
[2017-08-24] MEDS ORDERED: FURO40TA PO (11:37)
--- NOTE | 2017-08-24 11:38 | HHI.DS ---
Discharge Summary Admission Date Aug 17, 2017 at 11:34 Discharge Date: Aug 24, 2017 Admitting Diagnosis Dehydration, acute on chronic kidney failure, hyponatremia (1) Generalized weakness ICD Code: R53.1 - Weakness Diagnosis: Principal (2) Hypotension ICD Code: I95.9 - Hypotension, unspecified Diagnosis: Secondary (3) CHF (congestive heart failure) ICD Code: I50.9 - Heart failure, unspecified Diagnosis: Secondary Status: Acute (4) A-fib ICD Code: I48.91 - Unspecified atrial fibrillation Diagnosis: Secondary (5) ELOINA (acute kidney injury) ICD Code: N17.9 - Acute kidney failure, unspecified Diagnosis: Secondary (6) Hyponatremia ICD Code: E87.1 - Hypo-osmolality and hyponatremia Diagnosis: Principal Procedures none Brief History - From Admission This is a 71-year-old male w/ a PMH of HTN, CHF (Echo 07/16/17 w/ EF 55-60%), COPD, O2 Dependent, A-fib, CKD and H/o Alcoholic Liver Disease who was brought to the ER by EMS secondary to generalized weakness and hypotension. Family at bedside providing some history. Recent admit 07/15-07/24/17 w/ CHF/COPD/ Respiratory Failure requiring BIPAP and ELOINA, s/p eval by Nephrology w/ diuretics increased to Lasix 80mg bid in addition to Metolazone and Aldactone. Daughter states pt has been having persistent hypotension at home since discharge w/ BP 80-90's systolic, told by Nephrology to decrease diuretic as needed, states she decreased Lasix to 20mg bid and is now off Metolazone, Aldactone and Metoprolol for the last 3 days. Denies fever, chills, SOB or chest pain. On arrival, BP 77/46, HR 89, O2 sat 96% on 4L NC, Afebrile. S/p bolus in ER w/ improvement in BP. WBC 11.1. Creatinine 3.06, previously 2.01 on 07/24/17. Troponin negative. BNP 1597. Na 126. K+ 5.2. CXR with cardiomegaly, improved airspace disease from June, no significant effusion. CBC/BMP: 08/24/17 0901 Significant Findings Laboratory Tests Test 08/22/17 04:44 08/22/17 13:33 08/23/17 06:20 08/23/17 15:56 Blood Urea Nitrogen 55 MG/DL (7-18) 59 MG/DL (7-18) Creatinine 1.78 MG/DL (0.60-1.30) 1.95 MG/DL (0.60-1.30) Random Glucose 70 MG/DL (74-106) 67 MG/DL (74-106) Sodium Level 127 MEQ/L (136-145) 125 MEQ/L (136-145) Chloride Level 90 MEQ/L (98-107) 89 MEQ/L (98-107) Estimat Glomerular Filtration Rate 38 ML/MIN (>89) 34 ML/MIN (>89) Troponin I LESS THAN 0.02 NG/ML Albumin 2.3 GM/DL (3.4-5.0) Potassium Level 5.8 MEQ/L (3.5-5.1) 5.9 MEQ/L (3.5-5.1) Test 08/24/17 04:23 08/24/17 09:01 Blood Urea Nitrogen 54 MG/DL (7-18) Creatinine 1.94 MG/DL (0.60-1.30) Sodium Level 127 MEQ/L (136-145) Chloride Level 92 MEQ/L (98-107) Estimat Glomerular Filtration Rate 34 ML/MIN (>89) Imaging Last Impressions Chest X-Ray 08/22/17 0000 Signed Impressions: Service Date/Time: Tuesday, August 22, 2017 10:57 - CONCLUSION: No significant change. Cardiomegaly with mild perihilar and bibasilar opacities. Lopez Cedeno MD Liver Ultrasound 08/16/17 0000 Signed Impressions: Service Date/Time: Wednesday, August 16, 2017 09:30 - CONCLUSION: 1. Cholelithiasis and sludge with no gallbladder wall thickening or biliary obstruction. 2. The liver is mildly prominent and heterogeneous with lobular contours consistent with history of cirrhosis. There is no focal mass. 3. Apparent trace ascitic fluid. Lopez Cedeno MD PE at Discharge GENERAL: This is a well-nourished, well-developed patient, in no apparent distress. CARDIOVASCULAR: Regular rate and regular rhythm without murmurs, gallops, or rubs. RESPIRATORY: Clear to auscultation. Breath sounds equal bilaterally. No wheezes , rales, or rhonchi. GASTROINTESTINAL: Abdomen soft, non-tender, nondistended. Normal, active bowel sounds MUSCULOSKELETAL:lower extremities with bilateral pedal edema. NEURO: Alert & Oriented x4 to person, place, time, situation. Moves all ext x4 Hospital Course Hyponatremia - improving. Generalized weakness Most likely secondary to cirrhosis of liver. Patient had this in the past. started on Samsca. Nephrology f/u appreciated and cleared for discharge. continue PT. chest pain- atypical -resolved. EKG with no acute ST-T changes and troponin negative. hyperkalemia resolved. Hypotension-overall improved. BP still low-normal. hold lasix .hold Cardizem. continue to monitor. Congestive heart failure, diastolic, chronic No exacerbation Monitor clinically Caution oral hydration evaluated by cardiology- f/u as outpatient. Acute kidney injury Slowly improving. Likely related to degree of diuresis Follow renal function Oral hydration Atrial fibrillation Rate controlled continue cardizem Follow on telemetry anticoagulation per his cardiology- as outpatient. DVT prophylaxis Heparin Pt Condition on Discharge: Fair Discharge Disposition: Disch w/ Home Health Serv Discharge Time: > 30 minutes Anh Marcial MD Aug 24, 2017 11:38
[2017-08-24 12:00] VITALS: BP 90/56; PULSE 93; RESP 20; TEMP 97.6; O2SAT 90
== END 2017-08-24 14:35 | disposition home health service (06) | DRG 292 ==
LOC: NEPE 16:00 → NEDA 19:02 → NEDH 23:21 → HCPC 08-14 04:46 → N07A 08-14 21:30 → OBSVTOIN 08-17 11:34 → N07A 08-18 23:54
PROVIDERS: ADMIT Internal Medicine; ATTEND Internal Medicine
DX: I13.0 Hypertensive heart and chronic kidney disease with heart failure and stage 1 through stage 4 chronic kidney disease, or unspecified chronic kidney disease (principal); N17.9 Acute kidney failure, unspecified; Z99.81 Dependence on supplemental oxygen; E87.1 Hypo-osmolality and hyponatremia; E86.0 Dehydration; E87.5 Hyperkalemia; I48.2 Chronic atrial fibrillation; K70.30 Alcoholic cirrhosis of liver without ascites; I50.32 Chronic diastolic (congestive) heart failure; J44.9 Chronic obstructive pulmonary disease, unspecified; N18.9 Chronic kidney disease, unspecified; I95.1 Orthostatic hypotension; E78.5 Hyperlipidemia, unspecified; M19.90 Unspecified osteoarthritis, unspecified site; M10.9 Gout, unspecified; E07.9 Disorder of thyroid, unspecified; R26.2 Difficulty in walking, not elsewhere classified; E03.9 Hypothyroidism, unspecified; Z87.891 Personal history of nicotine dependence; T50.1X5A Adverse effect of loop [high-ceiling] diuretics, initial encounter
CPT/HCPCS: 71045; 71046; 76705; 80048; 80053; 80069; 81001; 82533; 83735; 83880; 83935; 84132; 84295; 84300; 84484; 85025; 85610; 85730; 93005; 94640; 94664; 96360; 96372; G0378; G8987-GP; G8988-GP; J0171; J0461; J1644; J1815; J2270; J7042; P9047

== ENCOUNTER 2018-01-27 15:47 | Inpatient (IN) ==
--- NOTE | 2018-01-27 16:33 | ED ---
HPI General Chief complaint: Weakness Stated complaint: Swollen Leg Time Seen by Provider: 01/27/18 16:12 Source: patient and family Mode of arrival: ambulatory Limitations: physical limitation History of Present Illness HPI Narrative: 72-year-old male complains of right leg redness swelling and generalized malaise and weakness. Patient has history of hypertension, CHF, ejection fraction 55-60%, COPD, O2 dependent, atrial fibrillation, chronic kidney disease and alcoholic liver disease. Patient noticed increasing redness swelling of the right leg for the past 4 days. Patient denies any injury. She denies any fever chills. Patient denies any headache. Patient denies any chest pain or shortness of breath. Patient denies abdominal pain. Patient denies any back pain. Patient states that his blood pressure has been running in the 90s normally. Patient states that he has history of chronic right lower extremity swelling for years however worse recently. Patient had long distance travel recently also. MD Complaint: extremity swelling Onset (ago): day(s) Pain Consistency: constant Location: right Severity scale (1-10): 7 Quality: aching Radiation: none Relieving factors: nothing Exacerbating factors: weight bearing Context: recent travel Related Data Home Medications Medication Instructions Recorded Confirmed allopurinol 150 mg PO HS 01/27/18 01/27/18 aspirin 81 mg PO DAILY 01/27/18 01/27/18 diltiazem HCl 120 mg PO DAILY 01/27/18 01/27/18 ferrous sulfate [iron] 325 mg PO Q OTHER DAY 01/27/18 01/27/18 folic acid 1 mg PO DAILY 01/27/18 01/27/18 furosemide 80 mg PO BID 01/27/18 01/27/18 ipratropium-albuterol 3 ml INHALATION Q6-8H PRN 01/27/18 01/27/18 levothyroxine 50 mcg PO DAILY 01/27/18 01/27/18 [id number]-lycopen-lutein 1 tab PO DAILY 01/27/18 01/27/18 [Centrum Silver] Allergies Allergy/AdvReac Type Severity Reaction Status Date / Time cefuroxime Allergy Intermediate hives Unverified 07/15/17 16:27 ciprofloxacin Allergy Intermediate HIVES Unverified 07/15/17 16:27 Review of Systems ROS: all other systems reviewed are negative [facility] Medical History Medical History Afib (Acute) COPD (chronic obstructive pulmonary disease) (Acute) Hypertension (Acute) Kidney failure (Acute) Surgical History Surgical History History of appendectomy (Acute) Social History Social History Substance History: No History of Abuse Second Hand Smoke Exposure: No Smoking Status: Former smoker Tobacco Type: Cigarettes How Often Do You Have a Drink Containing Alcohol: Never Recent Travel in [facility] within the Last 8 Weeks: No Recent Out of Country Travel within the Last 8 Weeks: No Immunization History Tetanus Immunization: Unsure Hx Influenza Vaccine This Season: No Exam Narrative Exam Narrative: GENERAL: Well-nourished, well-developed patient. SKIN: Focused skin assessment warm/dry. HEAD: Normocephalic. EYES: No scleral icterus. No injection or drainage. NECK: Supple, trachea midline. No JVD or lymphadenopathy. CARDIOVASCULAR: Regular rate and rhythm without murmurs, gallops, or rubs. RESPIRATORY: Breath sounds equal bilaterally. No accessory muscle use. GASTROINTESTINAL: Abdomen soft, non-tender, nondistended. MUSCULOSKELETAL: Patient has +2-+3 pitting edema right lower extremity with redness extending from the toes to proximal knee area of the right leg. Mild increase in heat noted. Mild redness on the medial aspect of the right thigh also. No induration. BACK: Nontender without obvious deformity. No CVA tenderness. Procedures Central Line Placement Left Femoral: Time Out Performed: Yes Patient Placed on Monitor/Pulse Ox: Yes Prep: mask, gown and gloves Central Line Prep: Povidone-Iodine 1% Local anesthesia used: lidocaine 1% Amount of anesthesia used (mL): 3 Ultrasound Used for Placement: Yes Post Procedure: sutured in place, good blood return, all ports aspirated, flushed, capped and sterile dressing applied Patient Tolerated Procedure: well Complications: none Course Initial Documented Vital Signs Temperature 97.3 F L 01/27/18 15:49 Pulse Rate 100 H 01/27/18 15:49 Respiratory Rate 24 01/27/18 15:49 Blood Pressure 86/52 L 01/27/18 15:49 Pulse Oximetry 88 L 01/27/18 15:49 Last Documented Vital Signs Temperature 97.3 F L 01/27/18 15:49 Pulse Rate 72 01/27/18 16:08 Respiratory Rate 20 01/27/18 16:08 Blood Pressure 93/54 L 01/27/18 16:08 Pulse Oximetry 91 L 01/27/18 16:08 Critical Care Time Critical Care Time: Yes Total Critical Care Time: 60 Attestation: Aggregate critical care time was 60 minutes. Time to perform other separately billable procedures was not included in the critical care time. My time did not include minutes spent treating any other patients simultaneously or on activities that did not directly contribute to the patient's treatment. The services I provided to this patient were to treat and/or prevent clinically significant deterioration that could result in: I provided critical care services requiring my management, as noted below: Chart data review, documentation time, medication orders and management, vital sign assessments/reviewing monitor data, ordering and reviewing lab tests, ordering and interpreting/reviewing x-rays and diagnostic studies, care of the patient and discussion of the patient with the admitting physicians. Medical Decision Making MDM Narrative Medical decision making narrative: 72-year-old male with right lower extremity redness swelling. Patient with mild hypertension. History of hypertension. History of CHF. History of chronic kidney disease. Patient's systolic blood pressure in the 70s and 80s. Left femoral central line placement. Patient was started on dopamine drip to keep MAP above 65. Vancomycin 1 g IV given. Zosyn 2.25 g IV given. Medical Screen Exam Complete: Yes Emergency Medical Condition: Yes Differential Diagnosis Differential Diagnosis: Differential diagnosis including dependent edema, DVT, cellulitis, sepsis. Lab Data Lab results reviewed: Yes I reviewed the patient's lab results. Result diagrams: 01/27/18 16:40 01/27/18 16:40 Lab Results 01/27/18 01/27/18 01/27/18 Range/Units 16:40 16:40 16:40 CBC w Diff WBC (4.0-11.0) th/mm3 RBC (4.50-5.90) mil/mm3 Hgb (13.0-17.0) gm/dL Hct (39.0-51.0) % MCV (80.0-100.0) fL MCH (27.0-34.0) pg MCHC (32.0-36.0) % RDW (11.6-17.2) % Plt Count (150-450) th/mm3 MPV (7.0-11.0) fL Neut % (Auto) (16.0-70.0) % Lymph % (Auto) (9.0-44.0) % Bryan % (Auto) (0.0-8.0) % Eos % (Auto) (0.0-4.0) % Baso % (Auto) (0.0-2.0) % Neut # (Auto) (1.8-7.7) th/mm3 Lymph # (Auto) (1.0-4.8) th/mm3 Bryan # (Auto) (0.0-0.9) th/mm3 Eos # (Auto) (0.0-0.4) th/mm3 Baso # (Auto) (0.0-0.2) th/mm3 WBC Differential Differential Comment ESR (0-20) mm/hr PT 13.1 H (9.8-11.6) sec INR 1.3 Ratio APTT 32.0 H (24.3-30.1) sec D-Dimer Quant (PE/DVT) 1.10 H (0.00-0.50) mg/L FEU Sodium (136-145) meq/L Potassium (3.5-5.1) meq/L Chloride (98-107) meq/L Carbon Dioxide (21.0-32.0) meq/L Anion Gap (5-15) meq/L BUN (7-18) mg/dL Creatinine (0.60-1.30) mg/dL Estimated GFR (>89) mL/min Random Glucose (74-106) mg/dL Lactic Acid 2.0 (0.4-2.0) mmol/L Calcium (8.5-10.1) mg/dL Phosphorus 4.7 (2.5-4.9) mg/dL Magnesium 2.0 (1.5-2.5) mg/dL Total Bilirubin (0.2-1.0) mg/dL AST (15-37) U/L ALT (12-78) U/L Alkaline Phosphatase (45-117) U/L Total Creatine Kinase 33 L (39-308) U/L Troponin I (0.02-0.05) ng/mL B-Natriuretic Peptide (0-100) pg/mL Total Protein (6.4-8.2) g/dL Albumin (3.4-5.0) g/dL TSH 3.730 (0.358-3.740) uIU/mL 01/27/18 01/27/18 01/27/18 Range/Units 16:40 16:40 16:40 CBC w Diff Auto diff final WBC 11.8 H (4.0-11.0) th/mm3 RBC 4.76 (4.50-5.90) mil/mm3 Hgb 14.7 (13.0-17.0) gm/dL Hct 44.1 (39.0-51.0) % MCV 92.7 (80.0-100.0) fL MCH 30.8 (27.0-34.0) pg MCHC 33.2 (32.0-36.0) % RDW 17.4 H (11.6-17.2) % Plt Count 243 (150-450) th/mm3 MPV 8.3 (7.0-11.0) fL Neut % (Auto) 94.3 H (16.0-70.0) % Lymph % (Auto) 2.6 L (9.0-44.0) % Bryan % (Auto) 2.3 (0.0-8.0) % Eos % (Auto) 0.2 (0.0-4.0) % Baso % (Auto) 0.6 (0.0-2.0) % Neut # (Auto) 11.1 H (1.8-7.7) th/mm3 Lymph # (Auto) 0.3 L (1.0-4.8) th/mm3 Bryan # (Auto) 0.3 (0.0-0.9) th/mm3 Eos # (Auto) 0.0 (0.0-0.4) th/mm3 Baso # (Auto) 0.1 (0.0-0.2) th/mm3 WBC Differential . Differential Comment . ESR 30 H (0-20) mm/hr PT (9.8-11.6) sec INR Ratio APTT (24.3-30.1) sec D-Dimer Quant (PE/DVT) (0.00-0.50) mg/L FEU Sodium 133 L (136-145) meq/L Potassium 5.1 (3.5-5.1) meq/L Chloride 100 (98-107) meq/L Carbon Dioxide 21.2 (21.0-32.0) meq/L Anion Gap 12 (5-15) meq/L BUN 64 H (7-18) mg/dL Creatinine 2.60 H (0.60-1.30) mg/dL Estimated GFR 24 L (>89) mL/min Random Glucose 91 (74-106) mg/dL Lactic Acid (0.4-2.0) mmol/L Calcium 7.8 L (8.5-10.1) mg/dL Phosphorus (2.5-4.9) mg/dL Magnesium (1.5-2.5) mg/dL Total Bilirubin 0.8 (0.2-1.0) mg/dL AST 16 (15-37) U/L ALT 11 L (12-78) U/L Alkaline Phosphatase 98 (45-117) U/L Total Creatine Kinase (39-308) U/L Troponin I 0.05 (0.02-0.05) ng/mL B-Natriuretic Peptide 1708 H (0-100) pg/mL Total Protein 4.8 L (6.4-8.2) g/dL Albumin 1.2 L (3.4-5.0) g/dL TSH (0.358-3.740) uIU/mL Imaging Data Radiologist's impression: Chest X-Ray 01/27/18 16:21 CONCLUSION: Radiographic findings system with either volume overload versus congestive heart failure and pulmonary edema. The overall heart size appears decreased in size as compared to the prior exam. Venous Doppler Study 01/27/18 16:21 CONCLUSION: 1. The study is negative for lower extremity deep venous thrombosis. Discharge Plan Discharge Disposition Patient Disposition: 30 Still Patient Discharge Details Diagnosis: Sepsis, Cellulitis of leg, right, Congestive heart failure, Chronic kidney disease (CKD) stage G4/A1, severely decreased glomerular filtration rate (GFR) between 15-29 mL/min/1.73 square meter and albuminuria creatinine ratio less than 30 mg/g Physicians Team ED Provider: Marcellus Patel Primary Care Provider: Bill Culp Rxs /Orders / Referrals /Forms Prescriptions: No Action ipratropium-albuterol 0.5 mg-3 mg(2.5 mg base)/3 mL Solution For Nebulization 3 ml INHALATION Q6-8H PRN (Reason: Bronchodilation) RF: 0 allopurinol 100 mg Tablet 150 mg PO HS RF: 0 furosemide 80 mg Tablet 80 mg PO BID RF: 0 levothyroxine 50 mcg Tablet 50 mcg PO DAILY RF: 0 ferrous sulfate [iron] 325 mg (65 mg iron) Tablet 325 mg PO Q OTHER DAY RF: 0 diltiazem HCl 120 mg Capsule,Ext.Rel 24h Degradable 120 mg PO DAILY RF: 0 aspirin 81 mg Tablet,Chewable 81 mg PO DAILY RF: 0 folic acid 1 mg Tablet 1 mg PO DAILY RF: 0 rwqfhjnj-yeb-ZI-lycopen-lutein [Centrum Silver] 0.4-300-250 mg-mcg-mcg Tablet 1 tab PO DAILY RF: 0 Status ED Status: With Doctor
[2018-01-27 16:46] LABS: Baso # (Auto) 0.1 th/mm3 (0.0-0.2); Baso % (Auto) 0.6 % (0.0-2.0); Eos % (Auto) 0.2 % (0.0-4.0); Hematocrit 44.1 % (39.0-51.0); Hemoglobin 14.7 gm/dL (13.0-17.0); Lymph # (Auto) 0.3 th/mm3 (1.0-4.8); Lymph % (Auto) 2.6 % (9.0-44.0); Mean Corpuscular HGB Conc 33.2 % (32.0-36.0); Mean Corpuscular Hemoglobin 30.8 pg (27.0-34.0); Mean Corpuscular Volume 92.7 fL (80.0-100.0); Mean Platelet Volume 8.3 fL (7.0-11.0); Mono # (Auto) 0.3 th/mm3 (0.0-0.9); Mono % (Auto) 2.3 % (0.0-8.0); Neut # (Auto) 11.1 th/mm3 (1.8-7.7); Neut % (Auto) 94.3 % (16.0-70.0); Platelet Count 243 th/mm3 (150-450); Red Blood Count 4.76 mil/mm3 (4.50-5.90); Red Cell Distribution Width 17.4 % (11.6-17.2); White Blood Count 11.8 th/mm3 (4.0-11.0)
[2018-01-27 16:56] LABS: Chloride 100 meq/L (98-107); Potassium 5.1 meq/L (3.5-5.1); Sodium 133 meq/L (136-145)
[2018-01-27 17:00] LABS: Calcium 7.8 mg/dL (8.5-10.1)
[2018-01-27 17:01] LABS: Albumin 1.2 g/dL (3.4-5.0); Anion Gap 12 meq/L (5-15); Blood Urea Nitrogen 64 mg/dL (7-18); Carbon Dioxide 21.2 meq/L (21.0-32.0); Glucose,Random 91 mg/dL (74-106)
[2018-01-27 17:02] LABS: INR 1.3 Ratio; Prothrombin Time 13.1 sec (9.8-11.6)
[2018-01-27 17:03] LABS: Phosphorus 4.7 mg/dL (2.5-4.9)
[2018-01-27 17:04] LABS: Alanine Aminotransferase 11 U/L (12-78); Aspartate Aminotransferase 16 U/L (15-37); Glomerular Filtration Rate 24 mL/min (>89)
[2018-01-27 17:05] LABS: Total Protein 4.8 g/dL (6.4-8.2)
[2018-01-27 17:07] LABS: Alkaline Phosphatase 98 U/L (45-117)
[2018-01-27 17:09] LABS: D-Dimer 1.1 mg/L FEU (0.00-0.50); Troponin I 0.05 ng/mL (0.02-0.05)
[2018-01-27 17:12] LABS: Erythrocyte Sedimentation Rate 30 mm/hr (0-20)
[2018-01-27 17:13] LABS: Thyroid Stimulating Hormone 3.73 uIU/mL (0.358-3.740)
[2018-01-27] MEDS ORDERED: DOPamine 800 MG/500 ML Premix 800 MG/500 ML PLAST..BAG IV.CONT PRN (18:40)
[2018-01-27] MEDS ORDERED: Piperacil/Tazo 2.25 GM Premix 50 ML IV.SIG ONE (18:42)
[2018-01-27] MEDS ORDERED: Vancomycin Inj 1 GM/200 ML PIGGYBACK IV.SIG ONE (18:42)
[2018-01-27] MEDS ORDERED: DOPamine 400 MG/250 ML Premix 400 MG/250 ML BAG IV.CONT PRN (19:30)
[2018-01-27] MEDS ORDERED: Vancomycin Inj 1,000 MG in Sodium Chlor 0.9% Inj 250 ML IV.SIG ONE (20:00)
[2018-01-27 20:01] LABS: Bilirubin,Urine Negative (Negative); Clarity,Urine Clear (Clear); Color,Urine Yellow (Yellw/Straw); Glucose,Urine (UA) Negative (Negative); Leukocyte Esterase,Urine Negative (Negative); Nitrite,Urine Negative (Negative); PH,Urine 5.5 (5.0-8.5); Specific Gravity,Urine Less/Equal 1.005 (1.002-1.035)
[2018-01-27 20:09] LABS: RBC,Urine 0-3 /hpf (0-3); Squamous Epithelial Cell,Urine 0-5 /hpf (0-5); WBC,Urine 0-5 /hpf (0-5)
[2018-01-27] MEDS ORDERED: Bisacodyl 10 MG Supp RECTAL PRN (20:32)
[2018-01-27] MEDS ORDERED: Vancomycin Consult Pharmacy OTHER PRN (21:36)
[2018-01-27] MEDS ORDERED: Cathflo Activase Inj 2 MG Vial I-CATHETER ONE (21:56)
--- NOTE | 2018-01-27 22:06 | P.HPCC ---
History of Present Illness Service: Critical care medicine Primary Care Physician: Bill Culp MD Chief Complaint: RLE swelling History of Present Illness: This is a 72yM with history of diastolic heart failure who presents with a few day history of progressive RLE swelling as well as progressive shortness of breath over last 1 day. His RLE has been increasingly red, warm, and swelling larger than usual. He states he called his doctor who gave him additional diuretics. In the ER, he had a severely elevated BNP at 1708 (has had previous BNP between 1300 - 1800). Cr elevated at 2.6 (baseline Cr 1.66 - 2.0). K elevated at 5.1, but from prior visits, baseline K appears to be 5. Patient also has been persistently hyponatremic on prior visits in the high 120s/low 130s. today his sodium is 133. He complains of SOB, HERRERA, LE edema, orthopnea. He denies fever, chills, sputum production, cough. spo2 is 88% on 4L o2 by [place] on my evaluation. very hypoalbuminemic at 1.2. wbc 11.8, 94% neutrophil predominance, no bandemia. ESR elevated at 30. afebrile. However, in the ER, he was persistently hypotensive, requiring central venous catheter insertion and dopamine infusion. the remainder of the ROS is negative, particularly negative for chest pain, headache, syncope, fever, chills, cough, wheezing, nausea, vomiting, diarrhea, constipation, abdominal pain, leg pain. Inpatient Certification: I certify that the inpatient services were ordered in accordance with Medicare regulations governing the order. This includes certification that hospital inpatient services are reasonable and necessary and in the case of services not specified as inpatient-only under 42 CFR 419.22(n), that they are appropriately provided as inpatient services in accordance to with the 2-midnight benchmark under 43 CFR 412.3(e) Estimated Total Length of Stay (Days): 7 Plans for Post Hospital Care: Not yet determined PMFSH - History History Provided By: Patient - Medical History Medical History: Medical History (Last Reviewed 01/27/18 @ 21:45 by Guido Patel MD) Afib COPD (chronic obstructive pulmonary disease) Hypertension Kidney failure - Surgical History Surgical History: Surgical History (Last Reviewed 01/27/18 @ 21:44 by Guido Patel MD) History of appendectomy - Family History Family History: Family History (Last Reviewed 01/27/18 @ 21:44 by Guido Patel MD) Other Family history non-contributory - Tobacco History Second Hand Smoke Exposure: No Tobacco Use In Past 30 Days: No Smoking Status: Former smoker Tobacco Type: Cigarettes - Alcohol History How Often Do You Have a Drink Containing Alcohol: Never - Substance Use History Substance History: No History of Abuse - Travel History Recent Travel in the [place] Within the Last 8 Weeks: No Recent Travel Out of the Country Within the Last 8 Weeks: No - Immunization History Tetanus Immunization: Unsure Hx Influenza Vaccine This Season: No Medications and Allergies Active Medications: Active Medications Albuterol (Duoneb Neb (Prn)) 1 ampul NEB Q2HR NEB PRN PRN Reason: WHEEZING Albuterol (Duoneb Neb (Jose)) 1 ampul NEB Q4HR NEB JOSE Allopurinol (Zyloprim) 150 mg PO HS JOSE Aspirin (Aspirin Chew) 81 mg PO DAILY JOSE Bisacodyl (Dulcolax Supp) 10 mg RECTAL DAILY PRN PRN Reason: if no BM in last 24h Chlorhexidine Gluconate (Chlorhexidine 2% Cloth) 3 pack TOPICAL DAILY@0400 JOSE Stop: 02/02/18 03:59 Chlorhexidine Gluconate (Chlorhexidine 2% Cloth) 3 pack TOPICAL DAILY@0400 PRN PRN Reason: Extra cloth needed Stop: 02/02/18 03:59 Dextrose (D50w Syringe) 50 ml IV.PUSH UNSCH PRN PRN Reason: PER HYPOGLYCEMIA PROTOCOL Furosemide (Lasix Inj) 80 mg IV.PUSH BID@0900,1800 JOSE Glucagon (Glucagon Inj) 1 mg IM ONCE PRN PRN Reason: blood sugar < 60, no iv access Heparin Sodium (Porcine) (Heparin Inj) 5,000 units SQ Q8HR JOSE Dopamine HCl/Dextrose (Dopamine 400 Mg/250 Ml Premix) 400 mg in 250 mls @ 11.138 mls/hr IV.CONT TITRATE PRN; Protocol PRN Reason: Per Protocol Last Titration: 01/27/18 20:52 Dose: 6 mcg/kg/min, 22.28 mls/hr Vancomycin HCl 1,750 mg/ (Sodium Chloride) 517.5 mls @ 250 mls/hr IV.SIG ONCE ONE Stop: 01/27/18 23:40 Piperacillin/Tazobactam/Dextrose (Zosyn 2.25 Gm Premix) 50 mls @ 100 mls/hr IV.SIG Q8H JOSE Insulin Human Regular (Novolin R Inj) 1 units SQ Q6HR [facility]; Protocol Lactulose (Lactulose Liq) 30 ml PO BID [facility] Levothyroxine Sodium (Synthroid) 50 mcg PO DAILY@0600 [facility] Ondansetron HCl (Zofran Inj) 4 mg IV.PUSH Q6H PRN PRN Reason: NAUSEA OR VOMITING Pantoprazole Sodium (Protonix Inj) 40 mg IV.PUSH Q24H [facility] Pharmacy Profile Note (Vancomycin Consult Pharmacy) 1 each OTHER UNSCH PRN PRN Reason: Pharmacy to dose Polyethylene Glycol (Miralax) 17 gm PO BID [facility] Senna/Docusate Sodium (Sharon-Colace) 1 tab PO BID [facility] Sodium Chloride (Ns Flush) 0 ml IV.FLUSH DAILY [facility] Sodium Chloride (Ns Flush) 0 ml IV.FLUSH PRN PRN PRN Reason: FLUSH AFTER USING IV ACCESS Sodium Chloride (Ns Flush) 2 ml IV.FLUSH UNSCH PRN PRN Reason: FLUSH AFTER USING IV ACCESS Terbutaline Sulfate (Brethine Inj) 1 mg SQ ONCE PRN PRN Reason: Extravasation Allergies Allergy/AdvReac Type Severity Reaction Status Date / Time cefuroxime Allergy Intermediate hives Verified 01/27/18 18:59 ciprofloxacin Allergy Intermediate HIVES Verified 01/27/18 18:59 Home Medications Medication Instructions Recorded Confirmed Type allopurinol 150 mg PO HS 01/27/18 01/27/18 History aspirin 81 mg PO DAILY 01/27/18 01/27/18 History diltiazem HCl 120 mg PO DAILY 01/27/18 01/27/18 History ferrous sulfate [iron] 325 mg PO Q OTHER DAY 01/27/18 01/27/18 History folic acid 1 mg PO DAILY 01/27/18 01/27/18 History furosemide 80 mg PO BID 01/27/18 01/27/18 History ipratropium-albuterol 3 ml INHALATION Q6-8H PRN 01/27/18 01/27/18 History levothyroxine 50 mcg PO DAILY 01/27/18 01/27/18 History lzeukrda-jzd-HP-lycopen-lutein 1 tab PO DAILY 09/06/18 09/06/18 History [Centrum Silver] Results - Labs CBC & Chem 7: 01/27/18 16:40 01/27/18 16:40 Labs: Short CBC 01/27/18 Range/Units 16:40 WBC 11.8 H (4.0-11.0) th/mm3 Hgb 14.7 (13.0-17.0) gm/dL Hct 44.1 (39.0-51.0) % Plt Count 243 (150-450) th/mm3 BMP 01/27/18 16:40 Sodium 133 L Potassium 5.1 Chloride 100 Carbon Dioxide 21.2 BUN 64 H Creatinine 2.60 H Calcium 7.8 L Cardiac Enzymes 01/27/18 01/27/18 Range/Units 16:40 16:40 Total Creatine Kinase 33 L (39-308) U/L Troponin I 0.05 (0.02-0.05) ng/mL Liver Function 01/27/18 Range/Units 16:40 Total Bilirubin 0.8 (0.2-1.0) mg/dL AST 16 (15-37) U/L ALT 11 L (12-78) U/L Alkaline Phosphatase 98 (45-117) U/L Albumin 1.2 L (3.4-5.0) g/dL Urine 01/27/18 Range/Units 19:50 Urine Color Yellow (Yellw/Straw) Urine Clarity Clear (Clear) Urine pH 5.5 (5.0-8.5) Ur Specific Bath Less/equal 1.005 (1.002-1.035) Urine Protein Negative (Neg-Trace) mg/dL Urine Glucose (UA) Negative (Negative) mg/dL - Imaging Impressions Chest X-Ray 01/27/18 16:21 CONCLUSION: Radiographic findings system with either volume overload versus congestive heart failure and pulmonary edema. The overall heart size appears decreased in size as compared to the prior exam. Venous Doppler Study 01/27/18 16:21 CONCLUSION: 1. The study is negative for lower extremity deep venous thrombosis. Exam Vital signs: Vital Signs 01/27/18 15:49 01/27/18 16:08 01/27/18 18:57 Temperature 36.3 C L Pulse Rate 100 H 72 70 Respiratory Rate 24 20 18 Blood Pressure 86/52 L 93/54 L 88/56 L Pulse Oximetry 88 L 91 L 92 L 01/27/18 20:38 Temperature Pulse Rate 96 H Respiratory Rate 18 Blood Pressure 99/63 L Pulse Oximetry 88 L Intake & Output 01/27/18 01/27/18 01/28/18 06:59 18:59 06:59 Intake Total 50 / 50 Balance 50 / 50 Weight 99 kg Intake: IV 50 / 50 Zosyn 2.25 GM Premix 50 ML @ 50 / 50 100 mls/hr IV.SIG ONCE ONE Rx#: [id number] Narrative: gen: elderly male, lying in bed, tachypneic. somewhat labored breathing. heent: nc. at. perrl. mmm. neck: +jvd. trachea midline. chest: tachypneic and labored. using accessory muscles. nc o2. spo2 88%. cv: slightly tachycardic rate in the 100s, irregularly irregular. afib by tele. abd: soft, nontender, nondistended. no guarding. extr: right lower extremity is large with significant 3+ edema. it is erythematous with evidence of skin breakdown and serous oozing. no areas of fluctuance are noted. it is warm to palpation. left lower extremity has 1-2+ edema but no erythema, warmth, or skin breakdown. distal pulses are 2+. neuro: RASS 0. GCS 15. follows commands. no focal deficits. I performed bedside critical care echocardiography which demonstrated grossly preserved biventricular function with a very dilated IVC without any respiratory variation. no pericardial effusion. Septic Shock Reassessment Septic shock perfusion: reassessment completed Caprini VTE Risk Assessment Caprini VTE Risk Assessment: Moderate/High Risk (score >= 2) Caprini Risk Assessment Model: Point Value = 1 Point Value = 2 Point Value = 3 Point Value = 5 Age 41-60 Minor surgery BMI > 25 kg/m2 Swollen legs Varicose veins or History of unexplained or recurrent spontaneous Oral contraceptives or hormone replacement Sepsis (< 1 month) Serious lung disease, including pneumonia (< 1 month) Abnormal pulmonary function Acute myocardial infarction Congestive heart failure (< 1 month) History of inflammatory bowel disease Medical patient at bed rest Age 61-74 Arthroscopic surgery Major open surgery (> 45 min) Laparoscopic surgery (> 45 min) Malignancy Confined to bed (> 72 hours) Immobilizing plaster cast Central venous access Age >= 75 History of VTE Family history of VTE Factor V Leiden Prothrombin [id number] Lupus anticoagulant Anticardiolipin antibodies Elevated serum homocysteine Heparin-induced thrombocytopenia Other congenital or acquired thrombophilia Stroke (< 1 month) Elective arthroplasty Hip, pelvis, or leg fracture Acute spinal cord injury (< 1 month) Prophylaxis Regimen: Total Risk Factor Score Risk Level Prophylaxis Regimen 0-1 Low Early ambulation 2 Moderate Order ONE of the following: *Sequential Compression Device (SCD) *Heparin 5000 units SQ BID 3-4 Higher Order ONE of the following medications: *Heparin 5000 units SQ TID *Enoxaparin/Lovenox 40 mg SQ daily (WT < 150 kg, CrCl > 30 mL/min) *Enoxaparin/Lovenox 30 mg SQ daily (WT < 150 kg, CrCl > 10-29 mL/min) *Enoxaparin/Lovenox 30 mg SQ BID (WT < 150 kg, CrCl > 30 mL/min) AND/OR *Sequential Compression Device (SCD) 5 or more Highest Order ONE of the following medications: *Heparin 5000 units SQ TID (Preferred with Epidurals) *Enoxaparin/Lovenox 40 mg SQ daily (WT < 150 kg, CrCl > 30 mL/min) *Enoxaparin/Lovenox 30 mg SQ daily (WT < 150 kg, CrCl > 10-29 mL/min) *Enoxaparin/Lovenox 30 mg SQ BID (WT < 150 kg, CrCl > 30 mL/min) AND *Sequential Compression Device (SCD) Assessment and Plan - Assessment and Plan Plan: Assessment: 72yM with Diastolic Congestive Heart Failure exacerbation with associated acute respiratory distress and acute hypoxemia, but also appears to have significant RLE cellulitis. Unclear if his hypotension is secondary to cardiogenic shock and CHF exacerbation vs. Septic shock from cellulitis. Bedside echo would suggest he does not need additional intravascular fluid, and likely needs forced diuresis to assist with respiratory distress. Will send CRP , ESR, and procalcitonin, in particular to assess to what degree systemic inflammatory response is responsible for his hypotension. He is clearly critically ill and requires vasopressors to maintain adequate end-organ perfusion. Acute Undifferentiated Shock- likely combined septic/cardiogenic. - transition dopamine to levophed for goal map > 65 mmHg - will not add additional ivf in the setting of chf exacerbation - abx as below - keep central venous access at this time. Acute Diastolic Congestive Heart Failure Exacerbation - lasix 80mg iv x 1 - lasix 80mg iv BID (home dose is 80mg po BID) - may need concentrated albumin in the setting of concomitant sepsis - has had multiple recent admissions for CHF exacerbation and has had echo within last 6 months with preserved EF. does not need repeat echo at this time. - trend BNP Acute hypoxemia - o2 by tn for goal spo2 > 90% - aggressive pulmonary toilet - forced diuresis as above - likely secondary to acute CHF exacerbation Acute Severe Right lower extremity cellulitis Septic Shock with end-organ dysfunction - add vancomycin given recent healthcare association - continue zosyn for empiric coverage - f/u blood cultures - patient has allergy to cefuroxime, but tolerated zosyn in the ER without reaction. - if patient is not improving in next 24h, would recommend MRI of RLE to rule out osteomyelitis. - f/u CRP, ESR, procalcitonin. certainly these may be positive, but may provide some usefulness in trending, and in seeing to what degree systemic inflammatory response is a contributing factor to hypotension and shock in the setting of mixed shock etiology. Acute Kidney injury superimposed on Chronic Kidney Disease Stage V - baseline Cr ~1.9 - monitor daily bmp, mg, phos - replace electrolytes as needed - likely secondary to shock Hyperkalemia - at patient's baseline of 5 - daily bmp - replace electrolytes as needed - no dysrhythmias. EKG unchanged from prior. Severe acute protein calorie malnutrition - likely secondary to chronic debilitation and multiple chronic medical problems with multiple recent hospitalizations - heart healthy diet - Hyponatremia - at baseline - daily bmp - most certainly Hypervolemic Hyponatremia - will not attempt to correct aggressively as this is his baseline. SQH, SCDs, pepcid. Admit to ICU. Critical care time: 38 minutes, exclusive of separately billable procedures. specifically managed acute hypotension, shock, mixed cardiogenic/septic shock, active diuresis and organ dysfunction management.
[2018-01-27] MEDS: Senna/Docusate Sodium 8.6/50 MG Tablet PO SCH (22:19)
[2018-01-27] MEDS: Allopurinol 300 MG Tablet PO SCH (22:19)
[2018-01-27] MEDS: Polyethylene Glycol 3350 17 GM Packet PO SCH (22:19)
[2018-01-27] MEDS: Heparin - SQ 10,000 UNITS/ML Vial SQ SCH (22:20)
[2018-01-27] MEDS: Pantoprazole Inj 40 MG Vial IV.PUSH SCH (22:20)
[2018-01-27] MEDS: Norepinephrine Inj 8 MG in Sodium Chlor 0.9% Inj 242 ML IV.CONT PRN (22:38)
[2018-01-27] MEDS ORDERED: Vancomycin Inj 1,750 MG in Sodium Chlor 0.9% Inj 500 ML IV.SIG ONE (22:45)
[2018-01-28] MEDS: Piperacil/Tazo 2.25 GM Premix 50 ML IV.SIG SCH ×3 (02:49→18:18)
[2018-01-28] MEDS: Chlorhexidine Gluconate 2% 1 Pack (2 Cloths) TOPICAL SCH (03:46)
[2018-01-28] MEDS ORDERED: Chlorhexidine Gluconate 2% 1 Pack (2 Cloths) TOPICAL PRN (04:00)
[2018-01-28 04:47] LABS: Baso % (Auto) 0.2 % (0.0-2.0); Eos % (Auto) 0.2 % (0.0-4.0); Hematocrit 43.4 % (39.0-51.0); Hemoglobin 14.3 gm/dL (13.0-17.0); Lymph # (Auto) 0.5 th/mm3 (1.0-4.8); Lymph % (Auto) 2.6 % (9.0-44.0); Mean Corpuscular HGB Conc 32.9 % (32.0-36.0); Mean Corpuscular Hemoglobin 30.3 pg (27.0-34.0); Mean Platelet Volume 8.2 fL (7.0-11.0); Mono # (Auto) 0.8 th/mm3 (0.0-0.9); Mono % (Auto) 4.3 % (0.0-8.0); Neut # (Auto) 17.7 th/mm3 (1.8-7.7); Neut % (Auto) 92.7 % (16.0-70.0); Platelet Count 294 th/mm3 (150-450); Red Blood Count 4.71 mil/mm3 (4.50-5.90); White Blood Count 19.1 th/mm3 (4.0-11.0)
[2018-01-28 05:16] LABS: Calcium 7.4 mg/dL (8.5-10.1); Carbon Dioxide 24.6 meq/L (21.0-32.0); Magnesium 2.2 mg/dL (1.5-2.5); Phosphorus 5.4 mg/dL (2.5-4.9); Potassium 5.1 meq/L (3.5-5.1)
[2018-01-28 05:35] LABS: ABG Base Excess -2.1 mmol/L (-2-2); ABG PCO2 35 mmHg (38-42); ABG PO2 72 mmHG (61-120)
[2018-01-28 05:50] LABS: Total Protein 4.6 g/dL (6.4-8.2)
[2018-01-28] MEDS: Heparin - SQ 10,000 UNITS/ML Vial SQ SCH ×3 (05:56→21:37)
[2018-01-28] MEDS: Levothyroxine 50 MCG Tablet PO SCH (05:56)
[2018-01-28] MEDS: Senna/Docusate Sodium 8.6/50 MG Tablet PO SCH ×2 (09:35→20:27)
[2018-01-28] MEDS: Polyethylene Glycol 3350 17 GM Packet PO SCH ×2 (09:35→20:28)
--- NOTE | 2018-01-28 09:35 | P.PNCC ---
Subjective Subjective Remarks/Hospital Course: This is a 72yM with history of diastolic heart failure who presents with a few day history of progressive RLE swelling as well as progressive shortness of breath over last 1 day. His RLE has been increasingly red, warm, and swelling larger than usual. He states he called his doctor who gave him additional diuretics. In the ER, he had a severely elevated BNP at 1708 (has had previous BNP between 1300 - 1800). Cr elevated at 2.6 (baseline Cr 1.66 - 2.0). K elevated at 5.1, but from prior visits, baseline K appears to be 5. Patient also has been persistently hyponatremic on prior visits in the high 120s/low 130s. today his sodium is 133. He complains of SOB, HERRERA, LE edema, orthopnea. He denies fever, chills, sputum production, cough. spo2 is 88% on 4L o2 by [place] on my evaluation. very hypoalbuminemic at 1.2. wbc 11.8, 94% neutrophil predominance, no bandemia. ESR elevated at 30. afebrile. However, in the ER, he was persistently hypotensive, requiring central venous catheter insertion and dopamine infusion. the remainder of the ROS is negative, particularly negative for chest pain, headache, syncope, fever, chills, cough, wheezing, nausea, vomiting, diarrhea, constipation, abdominal pain, leg pain. 01/28 Patient is awake and alert on 8L simple mask, off Dopamine on Levophed 8 mics. Afebrile. Objective Vital Signs / I&O: Vital Signs 01/27/18 15:49 01/27/18 16:08 01/27/18 18:57 Temperature 97.3 F L Pulse Rate 100 H 72 70 Respiratory Rate 24 20 18 Blood Pressure 86/52 L 93/54 L 88/56 L Pulse Oximetry 88 L 91 L 92 L 01/27/18 20:38 01/27/18 21:00 01/27/18 21:43 Temperature 97.8 F Pulse Rate 96 H 91 H 103 H Respiratory Rate 18 18 25 H Blood Pressure 99/63 L 101/61 Pulse Oximetry 88 L 95 01/27/18 21:59 01/27/18 22:00 01/27/18 23:00 Temperature Pulse Rate 100 H 91 H Respiratory Rate 18 18 Blood Pressure 87/50 L 91/53 L Pulse Oximetry 92 L 95 91 L 01/27/18 23:23 01/28/18 00:00 01/28/18 00:48 Temperature 98.4 F Pulse Rate 90 83 Respiratory Rate 18 Blood Pressure 90/56 L Pulse Oximetry 94 L 95 01/28/18 01:00 01/28/18 01:23 01/28/18 02:00 Temperature Pulse Rate 88 88 82 Respiratory Rate 18 18 Blood Pressure 89/56 L 91/54 L Pulse Oximetry 93 L 94 L 01/28/18 03:00 01/28/18 03:33 01/28/18 04:00 Temperature 98.7 F Pulse Rate 82 80 88 Respiratory Rate 18 25 H 19 Blood Pressure 85/52 L 91/51 L Pulse Oximetry 92 L 94 L 01/28/18 05:00 01/28/18 06:00 01/28/18 07:52 Temperature Pulse Rate 81 87 88 Respiratory Rate 19 19 21 Blood Pressure 90/52 L 93/57 L Pulse Oximetry 93 L 94 L 93 L Intake & Output 01/27/18 01/28/18 01/28/18 18:59 06:59 18:59 Intake Total 1097.5 / 1097.5 Output Total 625 / 625 Balance 472.5 / 472.5 Weight 99 kg 95 kg Intake: IV 617.5 / 617.5 Zosyn 2.25 GM Premix 50 ML @ 100 / 100 100 mls/hr IV.SIG Q8H KAYLIN Rx#: [id number] Vancomycin Inj 1,750 MG In NS 517.5 / 517.5 Inj 500 ML @ 250 mls/hr IV.SIG ONCE ONE Rx#:[id number] Oral 480 / 480 Output: Urine 625 / 625 Other: Date of Last Bowel Movement 01/27/18 # Bowel Movements 0 Result Diagrams: 01/28/18 04:30 01/28/18 04:30 Other Results: Laboratory Results - last 12 hr 01/27/18 01/27/18 01/27/18 16:40 16:40 20:50 WBC RBC Hgb Hct MCV MCH MCHC RDW Plt Count MPV Neut % (Auto) Lymph % (Auto) [place] % (Auto) Eos % (Auto) Baso % (Auto) Neut # (Auto) Lymph # (Auto) [place] # (Auto) Eos # (Auto) Baso # (Auto) WBC Differential Differential Comment ESR Puncture Site Patient Temperature O2 Saturation ABG pH ABG pCO2 ABG pO2 ABG HCO3 ABG O2 Content ABG Base Excess ABG Methemoglobin Lucien Test Hemoglobin Carboxyhemoglobin O2 Delivery Device Liter Flow Critical Value Sodium 133 L Potassium 5.1 Chloride 100 Carbon Dioxide 21.2 Anion Gap 12 BUN 64 H Creatinine 2.60 H Estimated GFR 24 L POC Glucose Random Glucose 91 Lactic Acid Calcium 7.8 L Prot Corrected Calcium Phosphorus Magnesium Total Bilirubin 0.8 AST 16 ALT 11 L Alkaline Phosphatase 98 Troponin I 0.05 C-Reactive Protein 30.50 H Cancelled B-Natriuretic Peptide Total Protein 4.8 L Albumin 1.2 L Nasal Screen MRSA (PCR) Not detected 01/27/18 01/28/18 01/28/18 22:15 00:33 04:30 WBC 19.1 H D RBC 4.71 Hgb 14.3 Hct 43.4 MCV 92.0 MCH 30.3 MCHC 32.9 RDW 18.0 H Plt Count 294 MPV 8.2 Neut % (Auto) 92.7 H Lymph % (Auto) 2.6 L [place] % (Auto) 4.3 Eos % (Auto) 0.2 Baso % (Auto) 0.2 Neut # (Auto) 17.7 H Lymph # (Auto) 0.5 L [place] # (Auto) 0.8 Eos # (Auto) 0.0 Baso # (Auto) 0.0 WBC Differential . Differential Comment Auto diff final ESR 14 Puncture Site Patient Temperature O2 Saturation ABG pH ABG pCO2 ABG pO2 ABG HCO3 ABG O2 Content ABG Base Excess ABG Methemoglobin Lucien Test Hemoglobin Carboxyhemoglobin O2 Delivery Device Liter Flow Critical Value Sodium Potassium Chloride Carbon Dioxide Anion Gap BUN Creatinine Estimated GFR POC Glucose 115 H Random Glucose Lactic Acid Calcium Prot Corrected Calcium Phosphorus Magnesium Total Bilirubin AST ALT Alkaline Phosphatase Troponin I C-Reactive Protein B-Natriuretic Peptide Total Protein Albumin Nasal Screen MRSA (PCR) 01/28/18 01/28/18 01/28/18 04:30 04:30 05:15 WBC RBC Hgb Hct MCV MCH MCHC RDW Plt Count MPV Neut % (Auto) Lymph % (Auto) [place] % (Auto) Eos % (Auto) Baso % (Auto) Neut # (Auto) Lymph # (Auto) [place] # (Auto) Eos # (Auto) Baso # (Auto) WBC Differential Differential Comment ESR Puncture Site Right radial Patient Temperature 98.6 O2 Saturation 91 ABG pH 7.42 ABG pCO2 35 L ABG pO2 72 ABG HCO3 22 ABG O2 Content 18.9 ABG Base Excess -2.1 L ABG Methemoglobin 1.3 Lucien Test Present Hemoglobin 14.8 Carboxyhemoglobin 1.8 O2 Delivery Device Simple mask Liter Flow 8.00 Critical Value No Sodium 135 L Potassium 5.1 Chloride 99 Carbon Dioxide 24.6 Anion Gap 11 BUN 61 H Creatinine 2.54 H Estimated GFR 25 L POC Glucose Random Glucose 123 H Lactic Acid Calcium 7.4 L* Prot Corrected Calcium 8.8 Phosphorus 5.4 H Magnesium 2.2 Total Bilirubin AST ALT Alkaline Phosphatase Troponin I C-Reactive Protein B-Natriuretic Peptide 1483 H Total Protein 4.6 L Albumin Nasal Screen MRSA (PCR) 01/28/18 01/28/18 06:00 06:17 WBC RBC Hgb Hct MCV MCH MCHC RDW Plt Count MPV Neut % (Auto) Lymph % (Auto) [place] % (Auto) Eos % (Auto) Baso % (Auto) Neut # (Auto) Lymph # (Auto) [place] # (Auto) Eos # (Auto) Baso # (Auto) WBC Differential Differential Comment ESR Puncture Site Patient Temperature O2 Saturation ABG pH ABG pCO2 ABG pO2 ABG HCO3 ABG O2 Content ABG Base Excess ABG Methemoglobin Lucien Test Hemoglobin Carboxyhemoglobin O2 Delivery Device Liter Flow Critical Value Sodium Potassium Chloride Carbon Dioxide Anion Gap BUN Creatinine Estimated GFR POC Glucose 111 H Random Glucose Lactic Acid 1.3 Calcium Prot Corrected Calcium Phosphorus Magnesium Total Bilirubin AST ALT Alkaline Phosphatase Troponin I C-Reactive Protein B-Natriuretic Peptide Total Protein Albumin Nasal Screen MRSA (PCR) Imaging: Chest X-Ray 01/27/18 16:21 CONCLUSION: Radiographic findings system with either volume overload versus congestive heart failure and pulmonary edema. The overall heart size appears decreased in size as compared to the prior exam. Venous Doppler Study 01/27/18 16:21 CONCLUSION: 1. The study is negative for lower extremity deep venous thrombosis. Objective Remarks: GENERAL: Patient is 72 yo on 8L simple mask. SKIN: Warm and dry. HEAD: Normocephalic. EYES: No scleral icterus. No injection or drainage. NECK: Supple, trachea midline. No JVD or lymphadenopathy. CARDIOVASCULAR: Regular rate and rhythm without murmurs, gallops, or rubs. RESPIRATORY: Breath sounds equal bilaterally. No accessory muscle use. GASTROINTESTINAL: Abdomen soft, non-tender, nondistended. MUSCULOSKELETAL: No cyanosis, RLE: ++ edema, erythematous Neuro: Awake and alert Assessment and Plan - Assessment and Plan Plan: Assessment: 72yM with Diastolic Congestive Heart Failure exacerbation with associated acute respiratory distress and acute hypoxemia, but also appears to have significant RLE cellulitis. Unclear if his hypotension is secondary to cardiogenic shock and CHF exacerbation vs. Septic shock from cellulitis. Bedside echo would suggest he does not need additional intravascular fluid, and likely needs forced diuresis to assist with respiratory distress. Will send CRP , ESR, and procalcitonin, in particular to assess to what degree systemic inflammatory response is responsible for his hypotension. He is clearly critically ill and requires vasopressors to maintain adequate end-organ perfusion. 1)Resp Insuff 2)Acute Undifferentiated Shock- likely combined septic/cardiogenic. 3)Acute Diastolic Congestive Heart Failure Exacerbation 4)Right lower extremity cellulitis 5)Acute Kidney injury superimposed on Chronic Kidney Disease Stage V 6)Leukocytosis 7)Hyponatremia 8)Severe acute protein calorie malnutrition Plan Neuro:Awake and alert Pulm: Wean down oxygen as [place] keep sats >92% Bronchodilators CV: Wean off Levophed keep MAP>65mmHg Lactic acid 1.3, On ASA 81mg daily : Monitor renal function, I/O's, avoid nephrotoxins Cr:2.54, UOP: 625ml On Lasix 80mg BID, check renal US, Nephrology eval. GI: On Cardiac diet ID: Continue with abx (Vanco, Zosyn) adjust doses of abx per renal function. Follow up on blood cultures, ID eval. CRP:30, follow up on Procalcitonin level Heme: Monitor CBC Endo: SSI for glycemic control On Synthroid 50mcg daily DVT prophylaxis- On Heparin DQ GI prophylaxis- On Protonix 40mg daily IV access: Left Femoral central line placed in ED 01/27 Patient is critically ill with septic shock on Levophed, acute renal failure, resp failure, CHF decompensation and cellulites RLE CCT 35 mins .
--- NOTE | 2018-01-28 11:09 | P.CONID ---
History of Present Illness Service: Infectious Disease Consult date: 01/28/18 Requesting Physician: Isha Rollins Reason for Consult: Evaluation and Mment of Primary Care Provider: Bill Culp MD Family Provider: Bill Culp MD Chief Complaint: RLE swelling History of Present Illness: is a 72-year-old male with past medical history significant for diastolic heart failure, recurrent right lower extremity swelling, history of trauma to the right lower extremity with a history of hematoma in the past. Patient reports that approximately a week to 10 days prior to admission he took a trip to [place] when he was driving the car. While he was at [place] he walked around at the [facility] locally which usually does not do. He reports that normally he would take a wheelchair to navigate within [facility]. He thinks a day after this trip to the [facility] his right lower extremity started swelling significantly. He goes on to report that he stays there for about 5 days and thereafter took another road trip from [place] to [facility] where he lives permanently. With this background patient presents to [facility] with this history of progressive right lower extremity swelling as well as progressive shortness of breath over the last 1 day. Patient reports that his right lower extremity has been increasingly red, warm and swollen despite taking the additional diuretics prescribed by his primary care physician. He reports this redness now is extended into his polyuria and also there is discomfort in his groin. In the emergency department he had a severely elevated BNP at 1708, creatinine of 2.6, potassium of 5.1. Patient also has history of persistently low sodium levels on prior visits. He endorses shortness of breath, dyspnea on exertion, lower extremity edema as well as orthopnea. He denies any fevers chills, sputum production or cough. His SPO2 on admission was 88% on 4 L oxygen by nasal cannula. Patient has significant hypovolemia at a level of 1.2. His WBC count on admission was 11.8 with 94% neutrophil predominance but no bandemia. His ESR was significantly elevated at 30. While in the ER patient was persistently hypotensive and required central venous catheter insertion as well as vasopressors. Patient was in the ICU at the time of my evaluation. He was alert and oriented 3 and is able to provide the history. Urine output is good. He currently is on vasopressors although requirement has gone down since admission. He is on nasal cannula. Infectious diseases consulted for evaluation and management of Right lower extremity cellulitis possible sepsis and septic shock. Review of Systems All other systems reviewed negative except as stated in HPI PMFSH - History History Provided By: Patient - Medical History Medical History: Medical History (Last Reviewed 01/27/18 @ 21:45 by Guido Patel MD) Afib COPD (chronic obstructive pulmonary disease) Hypertension Kidney failure - Surgical History Surgical History: Surgical History (Last Reviewed 01/27/18 @ 21:44 by Guido Patel MD) History of appendectomy - Family History Family History: Family History (Last Reviewed 01/27/18 @ 21:44 by Guido Patel MD) Other Family history non-contributory - Tobacco History Second Hand Smoke Exposure: No Tobacco Use In Past 30 Days: No Smoking Status: Former smoker Tobacco Type: Cigarettes - Alcohol History How Often Do You Have a Drink Containing Alcohol: Never - Substance Use History Substance History: No History of Abuse - Travel History Recent Travel in the [place] Within the Last 8 Weeks: No Recent Travel Out of the Country Within the Last 8 Weeks: No - Immunization History Tetanus Immunization: Unsure Hx Influenza Vaccine This Season: No Medications and Allergies Active Medications: Active Medications Albuterol (Duoneb Neb (Prn)) 1 ampul NEB Q2HR NEB PRN PRN Reason: WHEEZING Last Admin: 01/27/18 21:42 Dose: 1 ampul Albuterol (Duoneb Neb (Jose)) 1 ampul NEB Q4HR NEB [facility] Last Admin: 01/28/18 07:51 Dose: 1 ampul Allopurinol (Zyloprim) 150 mg PO HS [facility] Last Admin: 01/27/18 22:19 Dose: 150 mg Aspirin (Aspirin Chew) 81 mg PO DAILY [facility] Last Admin: 01/28/18 09:34 Dose: 81 mg Bisacodyl (Dulcolax Supp) 10 mg RECTAL DAILY PRN PRN Reason: if no BM in last 24h Chlorhexidine Gluconate (Chlorhexidine 2% Cloth) 3 pack TOPICAL DAILY@0400 [facility] Stop: 02/02/18 03:59 Last Admin: 01/28/18 03:46 Dose: 3 pack Chlorhexidine Gluconate (Chlorhexidine 2% Cloth) 3 pack TOPICAL DAILY@0400 PRN PRN Reason: Extra cloth needed Stop: 02/02/18 03:59 Dextrose (D50w Syringe) 50 ml IV.PUSH UNSCH PRN PRN Reason: PER HYPOGLYCEMIA PROTOCOL Furosemide (Lasix Inj) 80 mg IV.PUSH BID@0900,1800 [facility] Last Admin: 01/28/18 09:34 Dose: 80 mg Glucagon (Glucagon Inj) 1 mg IM ONCE PRN PRN Reason: blood sugar < 60, no iv access Heparin Sodium (Porcine) (Heparin Inj) 5,000 units SQ Q8HR [facility] Last Admin: 01/28/18 05:56 Dose: 5,000 units Piperacillin/Tazobactam/Dextrose (Zosyn 2.25 Gm Premix) 50 mls @ 100 mls/hr IV.SIG Q8H [facility] Last Infusion: 01/28/18 03:19 Dose: Infused Norepinephrine Bitartrate 8 mg (/ Sodium Chloride) 250 mls @ 3.75 mls/hr IV.CONT TITRATE PRN; Protocol PRN Reason: See protocol Last Titration: 01/28/18 09:35 Dose: 6 mcg/min, 11.25 mls/hr Insulin Human Regular (Novolin R Inj) 1 units SQ Q6HR [facility]; Protocol Last Admin: 01/28/18 06:43 Dose: Not Given Lactulose (Lactulose Liq) 30 ml PO BID [facility] Last Admin: 01/28/18 09:34 Dose: Not Given Levothyroxine Sodium (Synthroid) 50 mcg PO DAILY@0600 [facility] Last Admin: 01/28/18 05:56 Dose: 50 mcg Ondansetron HCl (Zofran Inj) 4 mg IV.PUSH Q6H PRN PRN Reason: NAUSEA OR VOMITING Last Admin: 01/27/18 21:46 Dose: 4 mg Pantoprazole Sodium (Protonix Inj) 40 mg IV.PUSH Q24H [facility] Last Admin: 01/27/18 22:20 Dose: 40 mg Pharmacy Profile Note (Vancomycin Consult Pharmacy) 1 each OTHER UNSCH PRN PRN Reason: Pharmacy to dose Polyethylene Glycol (Miralax) 17 gm PO BID [facility] Last Admin: 01/28/18 09:35 Dose: Not Given Senna/Docusate Sodium (Sharon-Colace) 1 tab PO BID [facility] Last Admin: 01/28/18 09:35 Dose: Not Given Sodium Chloride (Ns Flush) 0 ml IV.FLUSH DAILY [facility] Last Admin: 01/28/18 09:35 Dose: 6 ml Sodium Chloride (Ns Flush) 0 ml IV.FLUSH PRN PRN PRN Reason: FLUSH AFTER USING IV ACCESS Sodium Chloride (Ns Flush) 2 ml IV.FLUSH UNSCH PRN PRN Reason: FLUSH AFTER USING IV ACCESS Terbutaline Sulfate (Brethine Inj) 1 mg SQ ONCE PRN PRN Reason: Extravasation Terbutaline Sulfate (Brethine Inj) 1 mg SQ UNSCH PRN PRN Reason: For Extravasation Allergies Allergy/AdvReac Type Severity Reaction Status Date / Time cefuroxime Allergy Intermediate hives Verified 01/27/18 18:59 ciprofloxacin Allergy Intermediate HIVES Verified 01/27/18 18:59 Home Medications Medication Instructions Recorded Confirmed Type allopurinol 150 mg PO HS 01/27/18 01/27/18 History aspirin 81 mg PO DAILY 01/27/18 01/27/18 History diltiazem HCl 120 mg PO DAILY 01/27/18 01/27/18 History ferrous sulfate [iron] 325 mg PO Q OTHER DAY 01/27/18 01/27/18 History folic acid 1 mg PO DAILY 01/27/18 01/27/18 History furosemide 80 mg PO BID 01/27/18 01/27/18 History ipratropium-albuterol 3 ml INHALATION Q6-8H PRN 01/27/18 01/27/18 History levothyroxine 50 mcg PO DAILY 01/27/18 01/27/18 History euzqpjep-[id number]-NE-lycopen-lutein 1 tab PO DAILY 01/27/18 01/27/18 History [Centrum Silver] Exam Vital signs: Vital Signs 01/27/18 15:49 01/27/18 16:08 01/27/18 18:57 Temperature 97.3 F L Pulse Rate 100 H 72 70 Respiratory Rate 24 20 18 Blood Pressure 86/52 L 93/54 L 88/56 L Pulse Oximetry 88 L 91 L 92 L 01/27/18 20:38 01/27/18 21:00 01/27/18 21:43 Temperature 97.8 F Pulse Rate 96 H 91 H 103 H Respiratory Rate 18 18 25 H Blood Pressure 99/63 L 101/61 Pulse Oximetry 88 L 95 01/27/18 21:59 01/27/18 22:00 01/27/18 23:00 Temperature Pulse Rate 100 H 91 H Respiratory Rate 18 18 Blood Pressure 87/50 L 91/53 L Pulse Oximetry 92 L 95 91 L 01/27/18 23:23 01/28/18 00:00 01/28/18 00:48 Temperature 98.4 F Pulse Rate 90 83 Respiratory Rate 18 Blood Pressure 90/56 L Pulse Oximetry 94 L 95 01/28/18 01:00 01/28/18 01:23 01/28/18 02:00 Temperature Pulse Rate 88 88 82 Respiratory Rate 18 18 Blood Pressure 89/56 L 91/54 L Pulse Oximetry 93 L 94 L 01/28/18 03:00 01/28/18 03:33 01/28/18 04:00 Temperature 98.7 F Pulse Rate 82 80 88 Respiratory Rate 18 25 H 19 Blood Pressure 85/52 L 91/51 L Pulse Oximetry 92 L 94 L 01/28/18 05:00 01/28/18 06:00 01/28/18 07:52 Temperature Pulse Rate 81 87 88 Respiratory Rate 19 19 21 Blood Pressure 90/52 L 93/57 L Pulse Oximetry 93 L 94 L 93 L Intake & Output 01/27/18 01/28/18 01/28/18 18:59 06:59 18:59 Intake Total 1097.5 / 1097.5 Output Total 625 / 625 Balance 472.5 / 472.5 Weight 99 kg 95 kg Intake: IV 617.5 / 617.5 Zosyn 2.25 GM Premix 50 ML @ 100 / 100 100 mls/hr IV.SIG Q8H [facility] Rx#: [id number] Vancomycin Inj 1,750 MG In NS 517.5 / 517.5 Inj 500 ML @ 250 mls/hr IV.SIG ONCE ONE Rx#:[id number] Oral 480 / 480 Output: Urine 625 / 625 Other: Date of Last Bowel Movement 01/27/18 # Bowel Movements 0 Narrative: GENERAL: Well-nourished well-developed, not in acute distress SKIN: Cool and dry, no generalized rash HEAD: Atraumatic. Normocephalic. No temporal or scalp tenderness. EYES: Pupils equal round and reactive. Scleral icterus. No injection or drainage. No petechia ENT: Nothing abnormal detected NECK: Trachea midline. Supple, nontender, no meningeal signs. CARDIOVASCULAR: HS audible. RESPIRATORY: Clear to auscultation bilaterally. GASTROINTESTINAL: Abdomen soft nontender. MUSCULOSKELETAL: Right LE with significant swelling,pitting edema, induration and erythema. The erythema extends to the inner thigh and groin area. There was erythema in the groin folds. Tenderness not out of proportion to clinical findings, no crepitus. Genital exam: no tenderness. NEUROLOGICAL: Alert oriented 3. Nonfocal. Psych cooperative IV line sites ok. Results - Labs CBC & Chem 7: 01/28/18 04:30 01/28/18 04:30 Labs: Laboratory Results - last 24 hr 01/27/18 01/27/18 01/27/18 16:40 16:40 16:40 CBC w Diff WBC RBC Hgb Hct MCV MCH MCHC RDW Plt Count MPV Neut % (Auto) Lymph % (Auto) [place] % (Auto) Eos % (Auto) Baso % (Auto) Neut # (Auto) Lymph # (Auto) [place] # (Auto) Eos # (Auto) Baso # (Auto) WBC Differential Differential Comment ESR PT 13.1 H INR 1.3 APTT 32.0 H D-Dimer Quant (PE/DVT) 1.10 H Puncture Site Patient Temperature O2 Saturation ABG pH ABG pCO2 ABG pO2 ABG HCO3 ABG O2 Content ABG Base Excess ABG Methemoglobin Lucien Test Hemoglobin Carboxyhemoglobin O2 Delivery Device Liter Flow Critical Value Sodium Potassium Chloride Carbon Dioxide Anion Gap BUN Creatinine Estimated GFR POC Glucose Random Glucose Lactic Acid 2.0 Calcium Prot Corrected Calcium Phosphorus 4.7 Magnesium 2.0 Total Bilirubin AST ALT Alkaline Phosphatase Total Creatine Kinase 33 L Troponin I C-Reactive Protein B-Natriuretic Peptide Total Protein Albumin Procalcitonin TSH 3.730 Urine Color Urine Clarity Urine pH Ur Specific [place] Urine Protein Urine Glucose (UA) Urine Ketones Urine Occult Blood Urine Nitrate Urine Bilirubin Urine Urobilinogen Ur Leukocyte Esterase Urine RBC Urine WBC Ur Squamous Epith Cells Micro UA Comment Ur Microscopic Review Urine Culture Comments Nasal Screen MRSA (PCR) 01/27/18 01/27/18 01/27/18 16:40 16:40 16:40 CBC w Diff Auto diff final WBC 11.8 H RBC 4.76 Hgb 14.7 Hct 44.1 MCV 92.7 MCH 30.8 MCHC 33.2 RDW 17.4 H Plt Count 243 MPV 8.3 Neut % (Auto) 94.3 H Lymph % (Auto) 2.6 L [place] % (Auto) 2.3 Eos % (Auto) 0.2 Baso % (Auto) 0.6 Neut # (Auto) 11.1 H Lymph # (Auto) 0.3 L [place] # (Auto) 0.3 Eos # (Auto) 0.0 Baso # (Auto) 0.1 WBC Differential . Differential Comment . ESR 30 H PT INR APTT D-Dimer Quant (PE/DVT) Puncture Site Patient Temperature O2 Saturation ABG pH ABG pCO2 ABG pO2 ABG HCO3 ABG O2 Content ABG Base Excess ABG Methemoglobin Lucien Test Hemoglobin Carboxyhemoglobin O2 Delivery Device Liter Flow Critical Value Sodium 133 L Potassium 5.1 Chloride 100 Carbon Dioxide 21.2 Anion Gap 12 BUN 64 H Creatinine 2.60 H Estimated GFR 24 L POC Glucose Random Glucose 91 Lactic Acid Calcium 7.8 L Prot Corrected Calcium Phosphorus Magnesium Total Bilirubin 0.8 AST 16 ALT 11 L Alkaline Phosphatase 98 Total Creatine Kinase Troponin I 0.05 C-Reactive Protein 30.50 H B-Natriuretic Peptide 1708 H Total Protein 4.8 L Albumin 1.2 L Procalcitonin TSH Urine Color Urine Clarity Urine pH Ur Specific [place] Urine Protein Urine Glucose (UA) Urine Ketones Urine Occult Blood Urine Nitrate Urine Bilirubin Urine Urobilinogen Ur Leukocyte Esterase Urine RBC Urine WBC Ur Squamous Epith Cells Micro UA Comment Ur Microscopic Review Urine Culture Comments Nasal Screen MRSA (PCR) 01/27/18 01/27/18 01/27/18 16:40 19:50 20:50 CBC w Diff WBC RBC Hgb Hct MCV MCH MCHC RDW Plt Count MPV Neut % (Auto) Lymph % (Auto) [place] % (Auto) Eos % (Auto) Baso % (Auto) Neut # (Auto) Lymph # (Auto) [place] # (Auto) Eos # (Auto) Baso # (Auto) WBC Differential Differential Comment ESR PT INR APTT D-Dimer Quant (PE/DVT) Puncture Site Patient Temperature O2 Saturation ABG pH ABG pCO2 ABG pO2 ABG HCO3 ABG O2 Content ABG Base Excess ABG Methemoglobin Lucien Test Hemoglobin Carboxyhemoglobin O2 Delivery Device Liter Flow Critical Value Sodium Potassium Chloride Carbon Dioxide Anion Gap BUN Creatinine Estimated GFR POC Glucose Random Glucose Lactic Acid Calcium Prot Corrected Calcium Phosphorus Magnesium Total Bilirubin AST ALT Alkaline Phosphatase Total Creatine Kinase Troponin I C-Reactive Protein Cancelled B-Natriuretic Peptide Total Protein Albumin Procalcitonin TSH Urine Color Yellow Urine Clarity Clear Urine pH 5.5 Ur Specific [place] Less/equal 1.005 Urine Protein Negative Urine Glucose (UA) Negative Urine Ketones Negative Urine Occult Blood Negative Urine Nitrate Negative Urine Bilirubin Negative Urine Urobilinogen 1.0 Ur Leukocyte Esterase Negative Urine RBC 0-3 Urine WBC 0-5 Ur Squamous Epith Cells 0-5 Micro UA Comment Culture not ind Ur Microscopic Review Microscopic reviewed Urine Culture Comments Culture not ind Nasal Screen MRSA (PCR) Not detected 01/27/18 01/28/18 01/28/18 22:15 00:33 04:30 CBC w Diff WBC 19.1 H D RBC 4.71 Hgb 14.3 Hct 43.4 MCV 92.0 MCH 30.3 MCHC 32.9 RDW 18.0 H Plt Count 294 MPV 8.2 Neut % (Auto) 92.7 H Lymph % (Auto) 2.6 L [place] % (Auto) 4.3 Eos % (Auto) 0.2 Baso % (Auto) 0.2 Neut # (Auto) 17.7 H Lymph # (Auto) 0.5 L [place] # (Auto) 0.8 Eos # (Auto) 0.0 Baso # (Auto) 0.0 WBC Differential . Differential Comment Auto diff final ESR 14 PT INR APTT D-Dimer Quant (PE/DVT) Puncture Site Patient Temperature O2 Saturation ABG pH ABG pCO2 ABG pO2 ABG HCO3 ABG O2 Content ABG Base Excess ABG Methemoglobin Lucien Test Hemoglobin Carboxyhemoglobin O2 Delivery Device Liter Flow Critical Value Sodium Potassium Chloride Carbon Dioxide Anion Gap BUN Creatinine Estimated GFR POC Glucose 115 H Random Glucose Lactic Acid Calcium Prot Corrected Calcium Phosphorus Magnesium Total Bilirubin AST ALT Alkaline Phosphatase Total Creatine Kinase Troponin I C-Reactive Protein B-Natriuretic Peptide Total Protein Albumin Procalcitonin TSH Urine Color Urine Clarity Urine pH Ur Specific [place] Urine Protein Urine Glucose (UA) Urine Ketones Urine Occult Blood Urine Nitrate Urine Bilirubin Urine Urobilinogen Ur Leukocyte Esterase Urine RBC Urine WBC Ur Squamous Epith Cells Micro UA Comment Ur Microscopic Review Urine Culture Comments Nasal Screen MRSA (PCR) 01/28/18 01/28/18 01/28/18 04:30 04:30 04:30 CBC w Diff WBC RBC Hgb Hct MCV MCH MCHC RDW Plt Count MPV Neut % (Auto) Lymph % (Auto) [place] % (Auto) Eos % (Auto) Baso % (Auto) Neut # (Auto) Lymph # (Auto) [place] # (Auto) Eos # (Auto) Baso # (Auto) WBC Differential Differential Comment ESR PT INR APTT D-Dimer Quant (PE/DVT) Puncture Site Patient Temperature O2 Saturation ABG pH ABG pCO2 ABG pO2 ABG HCO3 ABG O2 Content ABG Base Excess ABG Methemoglobin Lucien Test Hemoglobin Carboxyhemoglobin O2 Delivery Device Liter Flow Critical Value Sodium 135 L Potassium 5.1 Chloride 99 Carbon Dioxide 24.6 Anion Gap 11 BUN 61 H Creatinine 2.54 H Estimated GFR 25 L POC Glucose Random Glucose 123 H Lactic Acid Calcium 7.4 L* Prot Corrected Calcium 8.8 Phosphorus 5.4 H Magnesium 2.2 Total Bilirubin AST ALT Alkaline Phosphatase Total Creatine Kinase Troponin I C-Reactive Protein B-Natriuretic Peptide 1483 H Total Protein 4.6 L Albumin Procalcitonin 3.65 H TSH Urine Color Urine Clarity Urine pH Ur Specific [place] Urine Protein Urine Glucose (UA) Urine Ketones Urine Occult Blood Urine Nitrate Urine Bilirubin Urine Urobilinogen Ur Leukocyte Esterase Urine RBC Urine WBC Ur Squamous Epith Cells Micro UA Comment Ur Microscopic Review Urine Culture Comments Nasal Screen MRSA (PCR) 01/28/18 01/28/18 01/28/18 05:15 06:00 06:17 CBC w Diff WBC RBC Hgb Hct MCV MCH MCHC RDW Plt Count MPV Neut % (Auto) Lymph % (Auto) [place] % (Auto) Eos % (Auto) Baso % (Auto) Neut # (Auto) Lymph # (Auto) [place] # (Auto) Eos # (Auto) Baso # (Auto) WBC Differential Differential Comment ESR PT INR APTT D-Dimer Quant (PE/DVT) Puncture Site Right radial Patient Temperature 98.6 O2 Saturation 91 ABG pH 7.42 ABG pCO2 35 L ABG pO2 72 ABG HCO3 22 ABG O2 Content 18.9 ABG Base Excess -2.1 L ABG Methemoglobin 1.3 Lucien Test Present Hemoglobin 14.8 Carboxyhemoglobin 1.8 O2 Delivery Device Simple mask Liter Flow 8.00 Critical Value No Sodium Potassium Chloride Carbon Dioxide Anion Gap BUN Creatinine Estimated GFR POC Glucose 111 H Random Glucose Lactic Acid 1.3 Calcium Prot Corrected Calcium Phosphorus Magnesium Total Bilirubin AST ALT Alkaline Phosphatase Total Creatine Kinase Troponin I C-Reactive Protein B-Natriuretic Peptide Total Protein Albumin Procalcitonin TSH Urine Color Urine Clarity Urine pH Ur Specific [place] Urine Protein Urine Glucose (UA) Urine Ketones Urine Occult Blood Urine Nitrate Urine Bilirubin Urine Urobilinogen Ur Leukocyte Esterase Urine RBC Urine WBC Ur Squamous Epith Cells Micro UA Comment Ur Microscopic Review Urine Culture Comments Nasal Screen MRSA (PCR) - Imaging Impressions Chest X-Ray 01/27/18 16:21 CONCLUSION: Radiographic findings system with either volume overload versus congestive heart failure and pulmonary edema. The overall heart size appears decreased in size as compared to the prior exam. Venous Doppler Study 01/27/18 16:21 CONCLUSION: 1. The study is negative for lower extremity deep venous thrombosis. Assessment and Plan - Plan Shock: combined septic and cardiogenic shock Right LE cellulitis extending to inner thigh and groin Right groin cellulitis. Acute on chronic renal failure. Pulm edema, CHF. Recs: Continue Zosyn IV for now. Continue Vanco IV (bacteremia, cellulitis as goals) Add Clindamycin until necrotizing fascitis or gas ruled out on imaging. Clinically low probability of Necrotizing fascitis. Start Diflucan for possible fungal component roxanna in groin. Start Nystatin cream for Local application. CT Right LE ordered. Once it is determined this in just cellulitis with no gas or fascitis ok to elevate leg, and put SKY wrap as this will help reduce the stasis factor. Follow cultures Follow clinical course. soila RN covering for me this weekend.
--- NOTE | 2018-01-28 13:50 | ECG ---
Date Performed: 01/27/2018 Time Performed: 16:42:21 PTAGE: 72 years EKG: ATRIAL FIBRILLATION INCOMPLETE RIGHT BUNDLE BRANCH BLOCK POSSIBLE RIGHT VENTRICULAR HYPERTR OPHY MINIMAL ST DEPRESSION ABNORMAL QRS-T ANGLE ABNORMAL ECG Since the PREVIOUS TRACING , no significant change noted PREVIOUS TRACIN08/22/2017 10.57 DOCTOR: Funmilayo Rojas Interpretating Date/Time 01/28/2018 13:48:50
[2018-01-28] MEDS: Fluconazole 100 MG Tablet PO SCH (14:17)
--- NOTE | 2018-01-28 18:28 | P.CONNP ---
History of Present Illness Service: Nephrology Consult date: 01/28/18 Requesting Physician: Isha Rollins Reason for Consult: Chronic kidney disease edema Primary Care Provider: Bill Culp MD Family Provider: Bill Culp MD Chief Complaint: RLE swelling History of Present Illness: Patient is a 72-year-old white male with history of cirrhosis, congestive heart failure, chronic kidney disease , patient follows with Dr. Webber, apparently went to [place] and walked around the [facility] and noticed increasing swelling on the right leg the next day. The swelling continued to increase in his Lasix was increased to 40 mg twice a day, he was also short of breath and started to hurt in the right groin as well, the right leg has redness as well and he felt weak came in with these complaints with increasing shortness of breath. His creatinine is around 2.5 Baseline creatinine runs around 1.66-1.95 Review of Systems Constitutional: Reports body ache(s), Reports malaise Cardiovascular: Reports foot swelling, Reports shortness of breath Respiratory: Reports shortness of breath with activity Genitourinary: Reports side pain Musculoskeletal: Reports back pain, Reports joint pain, Reports joint swelling Neurologic: Reports weakness Psychiatric: Reports anxiety PMFSH - History History Provided By: Patient - Medical History Medical History: Medical History (Last Reviewed 01/27/18 @ 21:45 by Guido Patel MD) Afib COPD (chronic obstructive pulmonary disease) Hypertension Kidney failure - Surgical History Surgical History: Surgical History (Last Reviewed 01/27/18 @ 21:44 by Guido Patel MD) History of appendectomy - Family History Family History: Family History (Last Reviewed 01/27/18 @ 21:44 by Guido Patel MD) Other Family history non-contributory - Tobacco History Second Hand Smoke Exposure: No Tobacco Use In Past 30 Days: No Smoking Status: Former smoker Tobacco Type: Cigarettes - Alcohol History How Often Do You Have a Drink Containing Alcohol: Never - Substance Use History Substance History: No History of Abuse - Travel History Recent Travel in the [facility] Within the Last 8 Weeks: No Recent Travel Out of the Country Within the Last 8 Weeks: No - Immunization History Tetanus Immunization: Unsure Hx Influenza Vaccine This Season: No Medications and Allergies Active Medications: Active Medications Albuterol (Duoneb Neb (Prn)) 1 ampul NEB Q2HR NEB PRN PRN Reason: WHEEZING Last Admin: 01/27/18 21:42 Dose: 1 ampul Albuterol (Duoneb Neb ([facility])) 1 ampul NEB Q4HR NEB [facility] Last Admin: 01/28/18 15:57 Dose: 1 ampul Allopurinol (Zyloprim) 150 mg PO HS [facility] Last Admin: 01/27/18 22:19 Dose: 150 mg Aspirin (Aspirin Chew) 81 mg PO DAILY [facility] Last Admin: 01/28/18 09:34 Dose: 81 mg Bisacodyl (Dulcolax Supp) 10 mg RECTAL DAILY PRN PRN Reason: if no BM in last 24h Chlorhexidine Gluconate (Chlorhexidine 2% Cloth) 3 pack TOPICAL DAILY@0400 [facility] Stop: 02/02/18 03:59 Last Admin: 01/28/18 03:46 Dose: 3 pack Chlorhexidine Gluconate (Chlorhexidine 2% Cloth) 3 pack TOPICAL DAILY@0400 PRN PRN Reason: Extra cloth needed Stop: 02/02/18 03:59 Clindamycin HCl (Cleocin) 300 mg PO Q6HR [facility] Dextrose (D50w Syringe) 50 ml IV.PUSH UNSCH PRN PRN Reason: PER HYPOGLYCEMIA PROTOCOL Fluconazole (Diflucan) 100 mg PO Q24H [facility] Last Admin: 01/28/18 14:17 Dose: 100 mg Furosemide (Lasix Inj) 80 mg IV.PUSH BID@0900,1800 [facility] Last Admin: 01/28/18 09:34 Dose: 80 mg Glucagon (Glucagon Inj) 1 mg IM ONCE PRN PRN Reason: blood sugar < 60, no iv access Heparin Sodium (Porcine) (Heparin Inj) 5,000 units SQ Q8HR [facility] Last Admin: 01/28/18 14:17 Dose: 5,000 units Piperacillin/Tazobactam/Dextrose (Zosyn 2.25 Gm Premix) 50 mls @ 100 mls/hr IV.SIG Q8H [facility] Last Infusion: 01/28/18 17:29 Dose: Infused Norepinephrine Bitartrate 8 mg (/ Sodium Chloride) 250 mls @ 3.75 mls/hr IV.CONT TITRATE PRN; Protocol PRN Reason: See protocol Last Titration: 01/28/18 09:35 Dose: 6 mcg/min, 11.25 mls/hr Vancomycin HCl 1,500 mg/ (Sodium Chloride) 515 mls @ 257.5 mls/hr IV.SIG ONCE ONE Stop: 01/28/18 21:59 Insulin Human Regular (Novolin R Inj) 1 units SQ Q6HR [facility]; Protocol Last Admin: 01/28/18 14:05 Dose: Not Given Lactulose (Lactulose Liq) 30 ml PO BID [facility] Last Admin: 01/28/18 09:34 Dose: Not Given Levothyroxine Sodium (Synthroid) 50 mcg PO DAILY@0600 [facility] Last Admin: 01/28/18 05:56 Dose: 50 mcg Nystatin (Mycostatin Cream) 1 applicatio TOPICAL QID [facility] Ondansetron HCl (Zofran Inj) 4 mg IV.PUSH Q6H PRN PRN Reason: NAUSEA OR VOMITING Last Admin: 01/27/18 21:46 Dose: 4 mg Pantoprazole Sodium (Protonix Inj) 40 mg IV.PUSH Q24H [facility] Last Admin: 01/27/18 22:20 Dose: 40 mg Pharmacy Profile Note (Vancomycin Consult Pharmacy) 1 each OTHER UNSCH PRN PRN Reason: Pharmacy to dose Polyethylene Glycol (Miralax) 17 gm PO BID [facility] Last Admin: 01/28/18 09:35 Dose: Not Given Senna/Docusate Sodium (Sharon-Colace) 1 tab PO BID [facility] Last Admin: 01/28/18 09:35 Dose: Not Given Sodium Chloride (Ns Flush) 0 ml IV.FLUSH DAILY [facility] Last Admin: 01/28/18 09:35 Dose: 6 ml Sodium Chloride (Ns Flush) 0 ml IV.FLUSH PRN PRN PRN Reason: FLUSH AFTER USING IV ACCESS Sodium Chloride (Ns Flush) 2 ml IV.FLUSH UNSCH PRN PRN Reason: FLUSH AFTER USING IV ACCESS Terbutaline Sulfate (Brethine Inj) 1 mg SQ ONCE PRN PRN Reason: Extravasation Terbutaline Sulfate (Brethine Inj) 1 mg SQ UNSCH PRN PRN Reason: For Extravasation Allergies Allergy/AdvReac Type Severity Reaction Status Date / Time cefuroxime Allergy Intermediate hives Verified 01/27/18 18:59 ciprofloxacin Allergy Intermediate HIVES Verified 01/27/18 18:59 Home Medications Medication Instructions Recorded Confirmed Type allopurinol 150 mg PO HS 01/27/18 01/27/18 History aspirin 81 mg PO DAILY 01/27/18 01/27/18 History diltiazem HCl 120 mg PO DAILY 01/27/18 01/27/18 History ferrous sulfate [iron] 325 mg PO Q OTHER DAY 01/27/18 01/27/18 History folic acid 1 mg PO DAILY 01/27/18 01/27/18 History furosemide 80 mg PO BID 01/27/18 01/27/18 History ipratropium-albuterol 3 ml INHALATION Q6-8H PRN 01/27/18 01/27/18 History levothyroxine 50 mcg PO DAILY 01/27/18 01/27/18 History qdlwvlap-fws-ZQ-lycopen-lutein 1 tab PO DAILY 01/27/18 01/27/18 History [Centrum Silver] Exam Vital signs: Vital Signs 01/27/18 18:57 01/27/18 20:38 01/27/18 21:00 Temperature 97.8 F Pulse Rate 70 96 H 91 H Respiratory Rate 18 18 18 Blood Pressure 88/56 L 99/63 L 101/61 Pulse Oximetry 92 L 88 L 95 01/27/18 21:43 01/27/18 21:59 01/27/18 22:00 Temperature Pulse Rate 103 H 100 H Respiratory Rate 25 H 18 Blood Pressure 87/50 L Pulse Oximetry 92 L 95 01/27/18 23:00 01/27/18 23:23 01/28/18 00:00 Temperature 98.4 F Pulse Rate 91 H 90 83 Respiratory Rate 18 18 Blood Pressure 91/53 L 90/56 L Pulse Oximetry 91 L 94 L 01/28/18 00:48 01/28/18 01:00 01/28/18 01:23 Temperature Pulse Rate 88 88 Respiratory Rate 18 Blood Pressure 89/56 L Pulse Oximetry 95 93 L 01/28/18 02:00 01/28/18 03:00 01/28/18 03:33 Temperature Pulse Rate 82 82 80 Respiratory Rate 18 18 25 H Blood Pressure 91/54 L 85/52 L Pulse Oximetry 94 L 92 L 01/28/18 04:00 01/28/18 05:00 01/28/18 06:00 Temperature 98.7 F Pulse Rate 88 81 87 Respiratory Rate 19 19 19 Blood Pressure 91/51 L 90/52 L 93/57 L Pulse Oximetry 94 L 93 L 94 L 01/28/18 07:00 01/28/18 07:52 01/28/18 08:00 Temperature 98.9 F Pulse Rate 84 88 83 Respiratory Rate 22 21 18 Blood Pressure 91/55 L 86/56 L Pulse Oximetry 93 L 93 L 94 L 01/28/18 09:00 01/28/18 10:00 01/28/18 11:00 Temperature Pulse Rate 92 H 87 84 Respiratory Rate 20 21 Blood Pressure 95/56 L 87/58 L 86/50 L Pulse Oximetry 92 L 86 L 94 L 01/28/18 12:00 01/28/18 12:18 01/28/18 13:00 Temperature Pulse Rate 84 87 94 H Respiratory Rate 18 20 21 Blood Pressure 85/55 L 95/60 L Pulse Oximetry 96 95 01/28/18 14:00 01/28/18 15:00 01/28/18 15:59 Temperature Pulse Rate 103 H 97 H 88 Respiratory Rate 35 H 29 H 23 Blood Pressure 105/58 L 85/52 L Pulse Oximetry 90 L 92 L 92 L 01/28/18 16:00 Temperature Pulse Rate 92 H Respiratory Rate 27 H Blood Pressure 88/58 L Pulse Oximetry 94 L Intake & Output 01/27/18 01/28/18 01/28/18 18:59 06:59 18:59 Intake Total 1097.5 / 1097.5 50 / 50 Output Total 625 / 625 Balance 472.5 / 472.5 50 / 50 Weight 99 kg 95 kg Intake: IV 617.5 / 617.5 50 / 50 Zosyn 2.25 GM Premix 50 ML @ 100 / 100 50 / 50 100 mls/hr IV.SIG Q8H [facility] Rx#: [id number] Vancomycin Inj 1,750 MG In NS 517.5 / 517.5 Inj 500 ML @ 250 mls/hr IV.SIG ONCE ONE Rx#:[id number] Oral 480 / 480 Output: Urine 625 / 625 Other: Date of Last Bowel Movement 01/27/18 01/27/18 # Bowel Movements 0 - Constitutional no acute distress - Routine HEENT Exam Head: Present: normocephalic Eye: Present: EOMI - Routine Neck Exam Present: supple - Routine Respiratory Exam Present: wheezes, crackles - Routine Cardiovascular Exam Present: S1, S2, irregular rhythm - Routine Abdominal Exam Present: soft, normoactive bowel sounds - Routine Extremities Exam Present: edema, tenderness - Routine Skin Exam Present: erythema - Routine Neurological Exam Present: alert, oriented X3 Results - Lab Results 01/29/18 04:45 01/28/18 04:30 Most recent lab results ABG pH 7.42 (7.380-7.420) 01/28/18 05:15 ABG pCO2 35 mmHg (38-42) L 01/28/18 05:15 ABG pO2 72 mmHG (61-120) 01/28/18 05:15 ABG HCO3 22 mmol/L (22-26) 01/28/18 05:15 Calcium 7.4 mg/dL (8.5-10.1) L* 01/28/18 04:30 Phosphorus 5.4 mg/dL (2.5-4.9) H 01/28/18 04:30 Magnesium 2.2 mg/dL (1.5-2.5) 01/28/18 04:30 Assessment and Plan - Assessment (1) Sepsis Code(s): A41.9 - Sepsis, unspecified organism Status: Acute (2) Cellulitis of leg, right Code(s): L03.115 - Cellulitis of right lower limb Status: Acute (3) Congestive heart failure Code(s): I50.9 - Heart failure, unspecified Status: Acute (4) Chronic kidney disease (CKD) stage G4/A1, severely decreased glomerular filtration rate (GFR) between 15-29 mL/min/1.73 square meter and albuminuria creatinine ratio less than 30 mg/g Code(s): N18.4 - Chronic kidney disease, stage 4 (severe) Status: Acute - Plan Patient seen his creatinine is responding to Lasix 80 mg every 12 urine output increased and continue to monitor BMP Cellulitis is being treated infectious disease is following He is on Zosyn and vancomycin Now on Cleocin Continue to monitor intake and output Avoid nephrotoxins Vancomycin drug levels should be monitored We will continue to monitor (1) Sepsis Qualifiers: Sepsis type: sepsis due to unspecified organism Qualified Code(s): A41.9 - Sepsis, unspecified organism (3) Congestive heart failure Qualifiers: Heart failure type: unspecified Heart failure chronicity: chronic Qualified Code(s): I50.9 - Heart failure, unspecified
[2018-01-28] MEDS ORDERED: Vancomycin Inj 1,500 MG in Sodium Chlor 0.9% Inj 500 ML IV.SIG ONE (20:00)
[2018-01-28] MEDS: Allopurinol 300 MG Tablet PO SCH (20:26)
[2018-01-28] MEDS: Pantoprazole Inj 40 MG Vial IV.PUSH SCH (20:27)
[2018-01-29] MEDS: Piperacil/Tazo 2.25 GM Premix 50 ML IV.SIG SCH ×3 (03:49→19:37)
[2018-01-29] MEDS: Chlorhexidine Gluconate 2% 1 Pack (2 Cloths) TOPICAL SCH (03:49)
[2018-01-29 04:51] LABS: Baso % (Auto) 0.1 % (0.0-2.0); Eos # (Auto) 0.2 th/mm3 (0.0-0.4); Eos % (Auto) 1.4 % (0.0-4.0); Hematocrit 41.2 % (39.0-51.0); Hemoglobin 13.8 gm/dL (13.0-17.0); Lymph # (Auto) 0.4 th/mm3 (1.0-4.8); Lymph % (Auto) 3.1 % (9.0-44.0); Mean Corpuscular HGB Conc 33.6 % (32.0-36.0); Mean Corpuscular Hemoglobin 30.3 pg (27.0-34.0); Mean Corpuscular Volume 90.2 fL (80.0-100.0); Mean Platelet Volume 7.4 fL (7.0-11.0); Mono # (Auto) 0.6 th/mm3 (0.0-0.9); Mono % (Auto) 4.5 % (0.0-8.0); Neut # (Auto) 11.9 th/mm3 (1.8-7.7); Neut % (Auto) 90.9 % (16.0-70.0); Platelet Count 241 th/mm3 (150-450); Red Blood Count 4.57 mil/mm3 (4.50-5.90); Red Cell Distribution Width 17.6 % (11.6-17.2); White Blood Count 13.1 th/mm3 (4.0-11.0)
[2018-01-29] MEDS: Heparin - SQ 10,000 UNITS/ML Vial SQ SCH ×3 (05:02→21:07)
[2018-01-29] MEDS: Levothyroxine 50 MCG Tablet PO SCH (05:02)
[2018-01-29 05:43] LABS: ABG Base Excess 0.1 mmol/L (-2-2); ABG PCO2 39 mmHg (38-42); ABG PO2 58 mmHG (61-120)
--- NOTE | 2018-01-29 08:53 | P.PNCC ---
Subjective Subjective Remarks/Hospital Course: This is a 72yM with history of diastolic heart failure who presents with a few day history of progressive RLE swelling as well as progressive shortness of breath over last 1 day. His RLE has been increasingly red, warm, and swelling larger than usual. He states he called his doctor who gave him additional diuretics. In the ER, he had a severely elevated BNP at 1708 (has had previous BNP between 1300 - 1800). Cr elevated at 2.6 (baseline Cr 1.66 - 2.0). K elevated at 5.1, but from prior visits, baseline K appears to be 5. Patient also has been persistently hyponatremic on prior visits in the high 120s/low 130s. today his sodium is 133. He complains of SOB, HERRERA, LE edema, orthopnea. He denies fever, chills, sputum production, cough. spo2 is 88% on 4L o2 by NC on my evaluation. very hypoalbuminemic at 1.2. wbc 11.8, 94% neutrophil predominance, no bandemia. ESR elevated at 30. afebrile. However, in the ER, he was persistently hypotensive, requiring central venous catheter insertion and dopamine infusion. the remainder of the ROS is negative, particularly negative for chest pain, headache, syncope, fever, chills, cough, wheezing, nausea, vomiting, diarrhea, constipation, abdominal pain, leg pain. 01/28 Patient is awake and alert on 8L simple mask, off Dopamine on Levophed 8 mics. Afebrile. 01/29: Lying in bed not in any acute distress. Remains on Levophed currently at 6 mcg/min. chest x-ray shows increasing alveolar infiltrates. Will start IV albumin and stop maintenance normal saline. Currently receiving IV Lasix Objective Vital Signs / I&O: Vital Signs 01/28/18 09:00 01/28/18 10:00 01/28/18 11:00 Temperature Pulse Rate 92 H 87 84 Respiratory Rate 20 21 Blood Pressure 95/56 L 87/58 L 86/50 L Pulse Oximetry 92 L 86 L 94 L 01/28/18 12:00 01/28/18 12:18 01/28/18 13:00 Temperature Pulse Rate 84 87 94 H Respiratory Rate 18 20 21 Blood Pressure 85/55 L 95/60 L Pulse Oximetry 96 95 01/28/18 14:00 01/28/18 15:00 01/28/18 15:59 Temperature Pulse Rate 103 H 97 H 88 Respiratory Rate 35 H 29 H 23 Blood Pressure 105/58 L 85/52 L Pulse Oximetry 90 L 92 L 92 L 01/28/18 16:00 01/28/18 17:00 01/28/18 18:00 Temperature Pulse Rate 92 H 100 H 91 H Respiratory Rate 27 H 20 19 Blood Pressure 88/58 L 92/60 L 96/58 L Pulse Oximetry 94 L 91 L 90 L 01/28/18 19:00 01/28/18 19:48 01/28/18 20:00 Temperature 98.7 F Pulse Rate 97 H 98 H 98 H Respiratory Rate 18 24 Blood Pressure 85/58 L Pulse Oximetry 93 L 91 L 01/28/18 21:00 01/28/18 22:00 01/28/18 23:00 Temperature Pulse Rate 97 H 98 H 102 H Respiratory Rate 22 22 26 H Blood Pressure 95/57 L 105/64 110/67 Pulse Oximetry 91 L 91 L 91 L 01/28/18 23:40 01/29/18 00:00 01/29/18 01:00 Temperature 98.3 F Pulse Rate 96 H 94 H 101 H Respiratory Rate 20 27 H 33 H Blood Pressure 97/57 L 92/56 L Pulse Oximetry 90 L 94 L 01/29/18 02:00 01/29/18 03:00 01/29/18 04:00 Temperature 98.3 F Pulse Rate 103 H 92 H 93 H Respiratory Rate 30 H 30 H 30 H Blood Pressure 98/59 L 94/54 L 92/55 L Pulse Oximetry 87 L 93 L 88 L 01/29/18 04:09 01/29/18 05:00 01/29/18 06:00 Temperature Pulse Rate 98 H 98 H 97 H Respiratory Rate 20 24 30 H Blood Pressure 99/59 L 96/59 L Pulse Oximetry 88 L 87 L 01/29/18 07:00 Temperature Pulse Rate 98 H Respiratory Rate 22 Blood Pressure Pulse Oximetry 90 L Intake & Output 01/28/18 01/29/18 01/29/18 18:59 06:59 18:59 Intake Total 50 / 50 750 / 750 Output Total 1200 / 1200 1900 / 1900 Balance -1150 / -1150 -1150 / -1150 Weight 101.5 kg Intake: IV 50 / 50 100 / 100 Zosyn 2.25 GM Premix 50 ML @ 50 / 50 100 / 100 100 mls/hr IV.SIG Q8H [facility] Rx#: [id number] Oral 650 / 650 Output: Urine 1200 / 1200 1900 / 1900 Other: Date of Last Bowel Movement 01/27/18 01/27/18 # Bowel Movements 0 Result Diagrams: 01/29/18 04:45 01/28/18 04:30 Objective Remarks: GENERAL: Patient is 72 yo male, critically ill appearing SKIN: Warm and dry. HEAD: Normocephalic. EYES: No scleral icterus. No injection or drainage. NECK: Supple, trachea midline. No JVD or lymphadenopathy. CARDIOVASCULAR: Regular rate and rhythm without murmurs, gallops, or rubs. On Levophed 6 mcg/min RESPIRATORY: Breath sounds equal bilaterally. No accessory muscle use. GASTROINTESTINAL: Abdomen soft, non-tender, nondistended. MUSCULOSKELETAL: No cyanosis, RLE: ++ edema, erythematous extends to the inner thigh and groin area. Neuro: Awake and alert. Oriented. Moves all extremities follows commands Assessment and Plan - Assessment and Plan Plan: Assessment: 72yM with Diastolic Congestive Heart Failure exacerbation with associated acute respiratory distress and acute hypoxemia, with severe RLE cellulitis. He is in septic shock from cellulitis. Bedside echo would suggest he does not need additional intravascular fluid, and likely needs forced diuresis to assist with respiratory distress. He is clearly critically ill and requires vasopressors to maintain adequate end-organ perfusion. Septic shock Acute Diastolic Congestive Heart Failure Exacerbation Right lower extremity cellulitis Acute Kidney injury superimposed on Chronic Kidney Disease Stage V Respiratory insufficiency Leukocytosis Hyponatremia Severe acute protein calorie malnutrition Plan Neuro:Awake and alert. Avoid long-acting sedation Pulm: Wean down oxygen as [place] keep sats >92% Bronchodilators CV: Wean off Levophed keep MAP>65mmHg. Currently on 6 mcg/min IV albumin 25 g every 12. Lactic acid 1.3, On ASA 81mg daily : Monitor renal function, I/O's, avoid nephrotoxins Cr:2.54, UOP: 3100 ml On Lasix 80mg BID, Nephrology eval. reduce Lasix to 40 mg IV every 12 GI: On Cardiac diet ID: Continue with abx (Vanco, Zosyn, clindamycin, Diflucan) adjust doses of abx per renal function. Follow up on blood cultures, ID following CRP:30, follow up on Procalcitonin level-3.5 Heme: Monitor CBC Endo: SSI for glycemic control On Synthroid 50mcg daily DVT prophylaxis- On Heparin DQ GI prophylaxis- On Protonix 40mg daily IV access: Left Femoral central line placed in ED 01/27- if not weaned off Levophed will need upper body central line Patient is critically ill with septic shock on Levophed, acute renal failure, resp failure, CHF decompensation and cellulites RLE CCT 35 mins. Code Status: Full
[2018-01-29] MEDS: Albumin Human 5% Inj 500 ML IV.SIG SCH ×2 (09:59→20:55)
[2018-01-29] MEDS ORDERED: Pharmacy Ordered Lab Info OTHER ONE (12:00)
[2018-01-29] MEDS: Senna/Docusate Sodium 8.6/50 MG Tablet PO SCH ×2 (12:04→20:47)
[2018-01-29] MEDS: Polyethylene Glycol 3350 17 GM Packet PO SCH ×2 (12:04→20:47)
--- NOTE | 2018-01-29 12:39 | P.PNNP ---
Subjective Interval history: Patient has diuresis with Lasix Physical Exam Vital signs: Vital Signs 01/28/18 13:00 01/28/18 14:00 01/28/18 15:00 Temperature Pulse Rate 94 H 103 H 97 H Respiratory Rate 21 35 H 29 H Blood Pressure 95/60 L 105/58 L 85/52 L Pulse Oximetry 95 90 L 92 L 01/28/18 15:59 01/28/18 16:00 01/28/18 17:00 Temperature Pulse Rate 88 92 H 100 H Respiratory Rate 23 27 H 20 Blood Pressure 88/58 L 92/60 L Pulse Oximetry 92 L 94 L 91 L 01/28/18 18:00 01/28/18 19:00 01/28/18 19:48 Temperature Pulse Rate 91 H 97 H 98 H Respiratory Rate 19 18 Blood Pressure 96/58 L Pulse Oximetry 90 L 93 L 01/28/18 20:00 01/28/18 21:00 01/28/18 22:00 Temperature 98.7 F Pulse Rate 98 H 97 H 98 H Respiratory Rate 24 22 22 Blood Pressure 85/58 L 95/57 L 105/64 Pulse Oximetry 91 L 91 L 91 L 01/28/18 23:00 01/28/18 23:40 01/29/18 00:00 Temperature Pulse Rate 102 H 96 H 94 H Respiratory Rate 26 H 20 27 H Blood Pressure 110/67 97/57 L Pulse Oximetry 91 L 90 L 01/29/18 01:00 01/29/18 02:00 01/29/18 03:00 Temperature 98.3 F Pulse Rate 101 H 103 H 92 H Respiratory Rate 33 H 30 H 30 H Blood Pressure 92/56 L 98/59 L 94/54 L Pulse Oximetry 94 L 87 L 93 L 01/29/18 04:00 01/29/18 04:09 01/29/18 05:00 Temperature 98.3 F Pulse Rate 93 H 98 H 98 H Respiratory Rate 30 H 20 24 Blood Pressure 92/55 L 99/59 L Pulse Oximetry 88 L 88 L 01/29/18 06:00 01/29/18 06:15 01/29/18 06:30 Temperature Pulse Rate 97 H 92 H 95 H Respiratory Rate 30 H 20 25 H Blood Pressure 96/59 L 86/51 L 90/57 L Pulse Oximetry 87 L 92 L 92 L 01/29/18 06:45 01/29/18 07:00 01/29/18 07:15 Temperature Pulse Rate 90 94 H 90 Respiratory Rate 17 16 19 Blood Pressure 89/58 L 88/60 L 88/57 L Pulse Oximetry 91 L 93 L 93 L 01/29/18 07:30 01/29/18 07:45 01/29/18 08:00 Temperature 97.9 F Pulse Rate 100 H 92 H 92 H Respiratory Rate 33 H 22 21 Blood Pressure 100/66 94/55 L 95/56 L Pulse Oximetry 88 L 93 L 93 L 01/29/18 08:15 01/29/18 08:30 01/29/18 08:45 Temperature Pulse Rate 99 H 92 H 94 H Respiratory Rate 28 H 20 30 H Blood Pressure 96/68 L 96/61 L 107/58 L Pulse Oximetry 92 L 92 L 93 L 01/29/18 09:00 01/29/18 09:15 01/29/18 09:30 Temperature Pulse Rate 105 H 102 H 94 H Respiratory Rate 35 H 29 H 24 Blood Pressure 91/59 L 94/69 L 88/56 L Pulse Oximetry 89 L 89 L 83 L 01/29/18 09:45 01/29/18 10:00 01/29/18 10:15 Temperature Pulse Rate 92 H 94 H 97 H Respiratory Rate 29 H 25 H 34 H Blood Pressure 80/57 L 90/62 L 108/75 Pulse Oximetry 93 L 96 85 L 01/29/18 10:30 01/29/18 10:45 01/29/18 11:00 Temperature Pulse Rate 91 H 89 90 Respiratory Rate 16 19 19 Blood Pressure 92/60 L 85/57 L 86/54 L Pulse Oximetry 92 L 93 L 95 01/29/18 11:15 01/29/18 11:30 01/29/18 11:45 Temperature Pulse Rate 89 89 94 H Respiratory Rate 22 18 29 H Blood Pressure 80/56 L 93/62 L 87/63 L Pulse Oximetry 97 96 95 01/29/18 12:00 01/29/18 12:15 Temperature Pulse Rate 90 90 Respiratory Rate 19 22 Blood Pressure 91/55 L 98/61 L Pulse Oximetry 97 95 Intake & Output 01/28/18 01/29/18 01/29/18 18:59 06:59 18:59 Intake Total 50 / 50 750 / 750 Output Total 1200 / 1200 1900 / 1900 Balance -1150 / -1150 -1150 / -1150 Weight 101.5 kg Intake: IV 50 / 50 100 / 100 Zosyn 2.25 GM Premix 50 ML @ 50 / 50 100 / 100 100 mls/hr IV.SIG Q8H [facility] Rx#: [id number] Oral 650 / 650 Output: Urine 1200 / 1200 1900 / 1900 Other: Date of Last Bowel Movement 01/27/18 01/27/18 # Bowel Movements 0 - Constitutional no acute distress - Routine Neck Exam Present: supple - Routine Respiratory Exam Present: decreased breath sounds (At bases) - Routine Cardiovascular Exam Present: S1, S2 - Routine Abdominal Exam Present: soft, normoactive bowel sounds - Routine Extremities Exam Present: edema Assessment and Plan - Assessment (1) Sepsis Code(s): A41.9 - Sepsis, unspecified organism Status: Acute Qualifiers: Sepsis type: sepsis due to unspecified organism Qualified Code(s): A41.9 - Sepsis, unspecified organism (2) Cellulitis of leg, right Code(s): L03.115 - Cellulitis of right lower limb Status: Acute (3) Congestive heart failure Code(s): I50.9 - Heart failure, unspecified Status: Acute Qualifiers: Heart failure type: unspecified Heart failure chronicity: chronic Qualified Code(s): I50.9 - Heart failure, unspecified (4) Chronic kidney disease (CKD) stage G4/A1, severely decreased glomerular filtration rate (GFR) between 15-29 mL/min/1.73 square meter and albuminuria creatinine ratio less than 30 mg/g Code(s): N18.4 - Chronic kidney disease, stage 4 (severe) Status: Acute - Plan Patient seen his creatinine is responding to Lasix 80 mg every 12 urine output increased 3.1 L, Lasix was reduced to 40 mg IV every 12 hourly Cellulitis is being treated infectious disease is following He is on Zosyn and vancomycin Now on Cleocin Continue to monitor intake and output Avoid nephrotoxins Vancomycin drug levels should be monitored We will continue to monitor Follows with Dr. Webber
[2018-01-29] MEDS ORDERED: Midazolam Inj 5 MG/ML 1 ML Vial ONE (12:57)
--- NOTE | 2018-01-29 15:03 | P.PCN ---
Date of procedure: 01/29/18 Pre-op diagnosis: shock Post-op diagnosis: same Procedure: Right subclavian central line Central line checklist completed, timeout completed. I wore a surgical cap, mask with protective eyewear, full gown and sterile gloves throughout the procedure. Right subclavian region was prepped using chlorhexidine scrub and draped in sterile fashion. Anesthesia was achieved over the vein using 1% lidocaine. The introducer needle was inserted into the right subclavian vein. Venous blood was withdrawn. The syringe was removed and a guidewire was advanced into the introducer needle. The introducer needle was exchanged for a dilator over the guidewire. After appropriate dilation was obtained, the dilator was exchanged over the wire for a triple lumen, 7F, antibiotic coated central venous catheter. The wire was removed and the catheter was sutured in place at 17 cm. A sterile central line dressing was placed over the catheter at the insertion site. The patient tolerated the procedure without any hemodynamic compromise. At time of procedure completion, all ports aspirated and flushed properly. Post-procedure chest x-ray is pending at this time. Anesthesia: local Surgeon: Ayo Flores Estimated blood loss (mL): 1 Pathology: none sent Condition: critical Disposition: ICU
[2018-01-29] MEDS: Fluconazole 100 MG Tablet PO SCH (15:22)
[2018-01-29 19:25] LABS: Calcium 7.6 mg/dL (8.5-10.1); Carbon Dioxide 26.3 meq/L (21.0-32.0); Magnesium 2.3 mg/dL (1.5-2.5); Phosphorus 4.4 mg/dL (2.5-4.9); Potassium 4.1 meq/L (3.5-5.1); Vancomycin,Random 18.4 Comment
[2018-01-29] MEDS: Pantoprazole Inj 40 MG Vial IV.PUSH SCH (20:45)
[2018-01-29] MEDS: Allopurinol 300 MG Tablet PO SCH (20:46)
[2018-01-29] MEDS: Norepinephrine Inj 8 MG in Sodium Chlor 0.9% Inj 242 ML IV.CONT PRN (22:44)
[2018-01-30] MEDS: Piperacil/Tazo 2.25 GM Premix 50 ML IV.SIG SCH ×3 (03:30→20:08)
[2018-01-30 04:17] LABS: Baso % (Auto) 0.2 % (0.0-2.0); Eos # (Auto) 0.3 th/mm3 (0.0-0.4); Eos % (Auto) 3.3 % (0.0-4.0); Hematocrit 38.7 % (39.0-51.0); Hemoglobin 12.6 gm/dL (13.0-17.0); Lymph # (Auto) 0.3 th/mm3 (1.0-4.8); Lymph % (Auto) 3.2 % (9.0-44.0); Mean Corpuscular HGB Conc 32.5 % (32.0-36.0); Mean Corpuscular Hemoglobin 29.8 pg (27.0-34.0); Mean Corpuscular Volume 91.7 fL (80.0-100.0); Mean Platelet Volume 8.2 fL (7.0-11.0); Mono # (Auto) 0.4 th/mm3 (0.0-0.9); Mono % (Auto) 5.4 % (0.0-8.0); Neut # (Auto) 7.1 th/mm3 (1.8-7.7); Neut % (Auto) 87.9 % (16.0-70.0); Platelet Count 209 th/mm3 (150-450); Red Blood Count 4.22 mil/mm3 (4.50-5.90)
[2018-01-30 04:45] LABS: Calcium 7.5 mg/dL (8.5-10.1); Carbon Dioxide 27.5 meq/L (21.0-32.0); Magnesium 2.5 mg/dL (1.5-2.5); Phosphorus 4.1 mg/dL (2.5-4.9); Potassium 4.3 meq/L (3.5-5.1)
[2018-01-30 04:47] LABS: Vancomycin,Random 14.8 Comment
[2018-01-30] MEDS: Chlorhexidine Gluconate 2% 1 Pack (2 Cloths) TOPICAL SCH (05:04)
[2018-01-30 05:06] LABS: ABG Base Excess 0.4 mmol/L (-2-2); ABG PCO2 40 mmHg (38-42); ABG PO2 76 mmHG (61-120)
[2018-01-30] MEDS: Levothyroxine 50 MCG Tablet PO SCH (06:58)
[2018-01-30] MEDS: Heparin - SQ 10,000 UNITS/ML Vial SQ SCH ×3 (06:58→23:01)
[2018-01-30] MEDS: Albumin Human 5% Inj 500 ML IV.SIG SCH ×2 (08:03→20:22)
[2018-01-30] MEDS: Senna/Docusate Sodium 8.6/50 MG Tablet PO SCH ×2 (08:04→20:24)
[2018-01-30] MEDS: Polyethylene Glycol 3350 17 GM Packet PO SCH ×2 (08:05→20:23)
--- NOTE | 2018-01-30 09:22 | P.PNCC ---
Subjective Subjective Remarks/Hospital Course: This is a 72yM with history of diastolic heart failure who presents with a few day history of progressive RLE swelling as well as progressive shortness of breath over last 1 day. His RLE has been increasingly red, warm, and swelling larger than usual. He states he called his doctor who gave him additional diuretics. In the ER, he had a severely elevated BNP at 1708 (has had previous BNP between 1300 - 1800). Cr elevated at 2.6 (baseline Cr 1.66 - 2.0). K elevated at 5.1, but from prior visits, baseline K appears to be 5. Patient also has been persistently hyponatremic on prior visits in the high 120s/low 130s. today his sodium is 133. He complains of SOB, HERRERA, LE edema, orthopnea. He denies fever, chills, sputum production, cough. spo2 is 88% on 4L o2 by NC on my evaluation. very hypoalbuminemic at 1.2. wbc 11.8, 94% neutrophil predominance, no bandemia. ESR elevated at 30. afebrile. However, in the ER, he was persistently hypotensive, requiring central venous catheter insertion and dopamine infusion. the remainder of the ROS is negative, particularly negative for chest pain, headache, syncope, fever, chills, cough, wheezing, nausea, vomiting, diarrhea, constipation, abdominal pain, leg pain. 01/28 Patient is awake and alert on 8L simple mask, off Dopamine on Levophed 8 mics. Afebrile. 01/29: Lying in bed not in any acute distress. Remains on Levophed currently at 6 mcg/min. chest x-ray shows increasing alveolar infiltrates. Will start IV albumin and stop maintenance normal saline. Currently receiving IV Lasix SUBJECTIVE: 01/30: Resting comfortably on 5 L nasal cannula. Complaining of pain in right lower extremity but somewhat improved. Improved sensation. Noted lower extremity negative Dopplers, CT right lower extremity on 01/27. Remains on norepinephrine drip at 2 mcg/min Objective Vital Signs / I&O: Vital Signs 01/29/18 09:30 01/29/18 09:45 01/29/18 10:00 Temperature Pulse Rate 94 H 92 H 94 H Respiratory Rate 24 29 H 25 H Blood Pressure 88/56 L 80/57 L 90/62 L Pulse Oximetry 83 L 93 L 96 01/29/18 10:15 01/29/18 10:30 01/29/18 10:45 Temperature Pulse Rate 97 H 91 H 89 Respiratory Rate 34 H 16 19 Blood Pressure 108/75 92/60 L 85/57 L Pulse Oximetry 85 L 92 L 93 L 01/29/18 11:00 01/29/18 11:15 01/29/18 11:30 Temperature Pulse Rate 90 89 89 Respiratory Rate 19 22 18 Blood Pressure 86/54 L 80/56 L 93/62 L Pulse Oximetry 95 97 96 01/29/18 11:45 01/29/18 12:00 01/29/18 12:15 Temperature Pulse Rate 94 H 90 90 Respiratory Rate 29 H 19 22 Blood Pressure 87/63 L 91/55 L 98/61 L Pulse Oximetry 95 97 95 01/29/18 13:00 01/29/18 14:00 01/29/18 15:00 Temperature Pulse Rate 88 85 92 H Respiratory Rate 18 19 18 Blood Pressure 86/59 L 96/62 L 103/71 Pulse Oximetry 89 L 96 94 L 01/29/18 15:02 01/29/18 16:00 01/29/18 17:00 Temperature 98.5 F Pulse Rate 92 H 100 H 96 H Respiratory Rate 25 H 29 H 34 H Blood Pressure 90/62 L 97/58 L Pulse Oximetry 94 L 94 L 01/29/18 18:00 01/29/18 19:00 01/29/18 19:57 Temperature Pulse Rate 94 H 93 H 96 H Respiratory Rate 24 24 25 H Blood Pressure 105/68 91/58 L Pulse Oximetry 94 L 94 L 95 01/29/18 20:00 01/29/18 20:50 01/29/18 20:55 Temperature 97.9 F 97.9 F Pulse Rate 100 H 100 H 98 H Respiratory Rate 28 H 28 H 34 H Blood Pressure 88/62 L 88/62 L 98/66 L Pulse Oximetry 87 L 87 L 92 L 01/29/18 21:00 01/29/18 21:05 01/29/18 21:10 Temperature Pulse Rate 102 H 102 H 104 H Respiratory Rate 21 21 33 H Blood Pressure 95/62 L 95/62 L 98/65 L Pulse Oximetry 93 L 93 L 95 01/29/18 21:15 01/29/18 21:20 01/29/18 21:25 Temperature Pulse Rate 101 H 105 H 100 H Respiratory Rate 32 H 26 H 24 Blood Pressure 98/63 L 102/60 87/57 L Pulse Oximetry 81 L 88 L 85 L 01/29/18 21:30 01/29/18 21:35 01/29/18 21:40 Temperature Pulse Rate 100 H 103 H 102 H Respiratory Rate 24 32 H 28 H Blood Pressure 93/63 L 98/66 L 100/62 Pulse Oximetry 90 L 91 L 92 L 01/29/18 21:45 01/29/18 21:50 01/29/18 21:55 Temperature Pulse Rate 103 H 97 H 96 H Respiratory Rate 36 H 17 19 Blood Pressure 101/65 95/55 L 94/63 L Pulse Oximetry 94 L 91 L 96 01/29/18 22:00 01/29/18 22:05 01/29/18 22:10 Temperature Pulse Rate 101 H 101 H 99 H Respiratory Rate 25 H 25 H 23 Blood Pressure 100/62 100/62 96/67 L Pulse Oximetry 87 L 87 L 93 L 01/29/18 22:15 01/29/18 22:25 01/29/18 22:30 Temperature Pulse Rate 97 H 107 H 101 H Respiratory Rate 30 H 31 H 31 H Blood Pressure 97/62 L 96/55 L 105/61 Pulse Oximetry 92 L 76 L 92 L 01/29/18 22:35 01/29/18 22:40 01/29/18 22:45 Temperature Pulse Rate 101 H 97 H 100 H Respiratory Rate 23 22 26 H Blood Pressure 99/62 L 109/65 109/67 Pulse Oximetry 95 97 97 01/29/18 22:50 01/29/18 22:55 01/29/18 23:00 Temperature Pulse Rate 99 H 99 H 105 H Respiratory Rate 30 H 28 H 40 H Blood Pressure 103/64 104/68 102/72 Pulse Oximetry 96 93 L 85 L 01/29/18 23:05 01/29/18 23:10 01/29/18 23:15 Temperature Pulse Rate 106 H 99 H 98 H Respiratory Rate 28 H 23 25 H Blood Pressure 99/66 L 106/60 105/64 Pulse Oximetry 86 L 91 L 97 01/29/18 23:20 01/29/18 23:25 01/29/18 23:30 Temperature Pulse Rate 95 H 96 H 99 H Respiratory Rate 25 H 24 28 H Blood Pressure 93/62 L 94/59 L 93/61 L Pulse Oximetry 96 99 97 01/29/18 23:35 01/29/18 23:40 01/29/18 23:45 Temperature Pulse Rate 96 H 100 H 96 H Respiratory Rate 29 H 26 H 28 H Blood Pressure 100/63 101/59 L 93/65 L Pulse Oximetry 99 96 96 01/29/18 23:50 01/29/18 23:55 01/30/18 00:00 Temperature Pulse Rate 97 H 94 H 95 H Respiratory Rate 28 H 25 H 24 Blood Pressure 98/67 L 103/66 99/63 L Pulse Oximetry 99 99 98 01/30/18 00:05 01/30/18 00:10 01/30/18 00:15 Temperature Pulse Rate 91 H 92 H 97 H Respiratory Rate 25 H 22 22 Blood Pressure 97/62 L 92/60 L Pulse Oximetry 99 96 01/30/18 00:30 01/30/18 00:45 01/30/18 01:00 Temperature Pulse Rate 101 H 95 H 95 H Respiratory Rate 21 18 21 Blood Pressure 88/58 L 97/59 L 90/63 L Pulse Oximetry 97 96 96 01/30/18 01:15 01/30/18 01:30 01/30/18 01:45 Temperature Pulse Rate 96 H 99 H 99 H Respiratory Rate 21 22 20 Blood Pressure 87/63 L 89/59 L 91/61 L Pulse Oximetry 97 92 L 95 01/30/18 02:00 01/30/18 02:15 01/30/18 02:30 Temperature Pulse Rate 97 H 96 H 91 H Respiratory Rate 30 H 31 H 20 Blood Pressure 88/57 L 86/58 L 92/60 L Pulse Oximetry 96 95 95 01/30/18 02:45 01/30/18 03:00 01/30/18 03:16 Temperature Pulse Rate 94 H 94 H 107 H Respiratory Rate 25 H 35 H 31 H Blood Pressure 93/59 L 93/62 L 80/51 L Pulse Oximetry 94 L 95 88 L 01/30/18 03:17 01/30/18 03:30 01/30/18 03:45 Temperature Pulse Rate 105 H 96 H 91 H Respiratory Rate 34 H 25 H 22 Blood Pressure 82/52 L 105/66 95/62 L Pulse Oximetry 87 L 92 L 94 L 01/30/18 04:00 01/30/18 04:15 01/30/18 04:20 Temperature Pulse Rate 96 H 89 89 Respiratory Rate 16 20 16 Blood Pressure 98/65 L 91/59 L Pulse Oximetry 95 97 01/30/18 04:30 01/30/18 04:45 01/30/18 05:00 Temperature Pulse Rate 90 91 H 93 H Respiratory Rate 18 21 21 Blood Pressure 97/54 L 96/58 L 89/57 L Pulse Oximetry 96 95 95 01/30/18 05:15 01/30/18 05:30 01/30/18 05:41 Temperature Pulse Rate 94 H 91 H 91 H Respiratory Rate 21 23 22 Blood Pressure 91/58 L 83/55 L 90/59 L Pulse Oximetry 91 L 92 L 92 L 01/30/18 05:45 01/30/18 06:00 01/30/18 06:15 Temperature Pulse Rate 93 H 91 H 88 Respiratory Rate 24 22 19 Blood Pressure 93/62 L 93/61 L 86/58 L Pulse Oximetry 95 96 96 01/30/18 06:30 01/30/18 07:00 01/30/18 08:25 Temperature Pulse Rate 86 87 Respiratory Rate 17 18 Blood Pressure 96/62 L Pulse Oximetry 97 93 L Intake & Output 01/29/18 01/30/18 01/30/18 18:59 06:59 18:59 Intake Total 1050 / 1050 1350 / 1350 Output Total 700 / 700 800 / 800 Balance 350 / 350 550 / 550 Weight 97 kg Intake: IV 550 / 550 600 / 600 Alburx 5% Inj 500 ML @ 250 mls/ 500 / 500 500 / 500 hr IV.SIG Q12H KAYLIN Rx#:[id number] Zosyn 2.25 GM Premix 50 ML @ 50 / 50 100 / 100 100 mls/hr IV.SIG Q8H KAYLIN Rx#: [id number] Oral 500 / 500 750 / 750 Output: Urine 700 / 700 800 / 800 Other: Date of Last Bowel Movement 01/27/18 01/27/18 01/27/18 # Bowel Movements 0 Result Diagrams: 01/30/18 03:30 01/30/18 03:30 Other Results: Microbiology 01/27/18 16:40 Blood - Peripheral Aerobic Blood Culture - Preliminary No growth in 2 days 01/27/18 16:40 Blood - Peripheral Anaerobic Blood Culture - Final QNS - See aerobic report. 01/27/18 16:33 Blood - Peripheral Aerobic Blood Culture - Preliminary No growth in 2 days 01/27/18 16:33 Blood - Peripheral Anaerobic Blood Culture - Preliminary No growth in 2 days Imaging: Chest X-Ray 01/27/18 16:21 CONCLUSION: Radiographic findings system with either volume overload versus congestive heart failure and pulmonary edema. The overall heart size appears decreased in size as compared to the prior exam. Venous Doppler Study 01/27/18 16:21 CONCLUSION: 1. The study is negative for lower extremity deep venous thrombosis. Abdomen/Bladder Ultrasound 01/28/18 00:00 CONCLUSION: 1. Normal-sized kidneys with thin renal cortex Femur CT 01/28/18 00:00 CONCLUSION: 1. Diffuse subcutaneous swelling is noted throughout the right thigh suggesting diffuse cellulitis. No deep soft tissue abscess is noted. 2. No fracture, dislocation, or focal bony abnormality. Lower Extremity CT 01/28/18 00:00 CONCLUSION: 1. Diffuse subcutaneous swelling of the left lower leg suggesting diffuse cellulitis. 2. Small knee joint effusion. 3. Mild degenerative changes involving the femoral-tibial and patellofemoral joints. 4. No acute fracture or dislocation of the tibia or fibula. Chest X-Ray 01/29/18 00:00 CONCLUSION: Increasing alveolar infiltrates in the lower lungs bilaterally, left greater than right. Stable cardiomegaly. Chest X-Ray 01/29/18 13:20 CONCLUSION: Right-sided central line which appears a properly positioned. Radiographic findings are consistent with either congestive heart failure with pulmonary edema versus congestive heart failure with superimposed multifocal pneumonia. Objective Remarks: GENERAL: Patient is 72 yo male, resting in bed in no acute distress SKIN: Warm and dry. Noted skin peeling right lower extremity. Erythematous below the knee. HEAD: Normocephalic. EYES: No scleral icterus. No injection or drainage. NECK: Supple, trachea midline. No JVD or lymphadenopathy. CARDIOVASCULAR: Irregularly irregular. S1, S2. No S4. Without murmurs, gallops, or rubs. RESPIRATORY: Diminished breath sounds with end expiratory wheeze bilaterally. No accessory muscle use. GASTROINTESTINAL: Abdomen soft, non-tender, nondistended. MUSCULOSKELETAL: No cyanosis, 1+ left lower extremity edema. RLE: ++ edema, erythematous extends to the inner thigh and groin area. Neuro: Awake and alert. Oriented. Moves all extremities follows commands Assessment and Plan - Assessment and Plan Plan: Assessment: 72yM with Diastolic Congestive Heart Failure exacerbation with associated acute respiratory distress and acute hypoxemia, with severe RLE cellulitis. He is in septic shock from cellulitis. Bedside echo would suggest he does not need additional intravascular fluid, and likely needs forced diuresis to assist with respiratory distress. He is clearly critically ill and requires vasopressors to maintain adequate end-organ perfusion. Septic shock Acute Diastolic Congestive Heart Failure Exacerbation Right lower extremity cellulitis Hx Atrial fibrillation Acute Kidney injury superimposed on Chronic Kidney Disease Stage V Acute on chronic respiratory insufficiency -3 L nasal cannula at home Severe acute protein calorie malnutrition History of essential hypertension Hypothyroidism History of gout History of severe pulmonary hypertension Plan Neuro:Awake and alert. Avoid long-acting sedation Pulm: Wean down oxygen as [place] keep sats >92% Bronchodilators with albuterol/ipratropium every 6 hours with albuterol aerosols every 2 hours as needed dyspnea CV: Wean off L norepinephrine keep MAP>65mmHg. Currently on 2 mcg/min. Holding diltiazem 120 mg daily/home medication. Check 2D echocardiogram. 07/11 echocardiogram -The left ventricular systolic function is normal with an estimated ejection fraction in the range of 55-60%. The right ventricle is moderately dilated. The right ventricular systoilc function is severely decreased. The right atrial size is moderately dilated. Mild-to- moderate mitral valve regurgitation. There is trace tricuspid valve regurgitation. The estimated pulmonary arterial pressure is 62.4 mmHg. There is estimated [id number] pulmonary hypertension present IV albumin 25 g every 12. Lactic acid 2.0, On ASA 81mg daily : Monitor renal function, I/O's, avoid nephrotoxins Cr:1.93, UOP: 1500 ml On furosemide 80mg BID at home., Nephrology eval. reduce furosemide to 20 mg IV every 12 GI: On Cardiac diet. Pantoprazole for GI prophylaxis ID: Continue with abx (Vanco, piperacillin/tazobactam, fluconazole) adjust doses of abx per renal function. Follow up on blood cultures, ID following CRP:30, follow up on Procalcitonin level-3.5 Heme: Monitor CBC Endo: SSI for glycemic control On levothyroxine 50mcg daily On allopurinol 100 mg daily DVT prophylaxis- On Heparin DQ GI prophylaxis- On pantoprazole 40mg daily IV access: Left Femoral central line placed in ED 01/27-01/29. Right subclavian CVL placed 01/29 Level 2 follow-up.
[2018-01-30] MEDS: Ferrous Sulfate 325 MG Tablet PO SCH (10:15)
--- NOTE | 2018-01-30 13:20 | P.PNNP ---
Subjective Interval history: Patient has pain in the right leg Physical Exam Vital signs: Vital Signs 01/29/18 14:00 01/29/18 15:00 01/29/18 15:02 Temperature Pulse Rate 85 92 H 92 H Respiratory Rate 19 18 25 H Blood Pressure 96/62 L 103/71 Pulse Oximetry 96 94 L 01/29/18 16:00 01/29/18 17:00 01/29/18 18:00 Temperature 98.5 F Pulse Rate 100 H 96 H 94 H Respiratory Rate 29 H 34 H 24 Blood Pressure 90/62 L 97/58 L 105/68 Pulse Oximetry 94 L 94 L 94 L 01/29/18 19:00 01/29/18 19:57 01/29/18 20:00 Temperature 97.9 F Pulse Rate 93 H 96 H 100 H Respiratory Rate 24 25 H 28 H Blood Pressure 91/58 L 88/62 L Pulse Oximetry 94 L 95 87 L 01/29/18 20:50 01/29/18 20:55 01/29/18 21:00 Temperature 97.9 F Pulse Rate 100 H 98 H 102 H Respiratory Rate 28 H 34 H 21 Blood Pressure 88/62 L 98/66 L 95/62 L Pulse Oximetry 87 L 92 L 93 L 01/29/18 21:05 01/29/18 21:10 01/29/18 21:15 Temperature Pulse Rate 102 H 104 H 101 H Respiratory Rate 21 33 H 32 H Blood Pressure 95/62 L 98/65 L 98/63 L Pulse Oximetry 93 L 95 81 L 01/29/18 21:20 01/29/18 21:25 01/29/18 21:30 Temperature Pulse Rate 105 H 100 H 100 H Respiratory Rate 26 H 24 24 Blood Pressure 102/60 87/57 L 93/63 L Pulse Oximetry 88 L 85 L 90 L 01/29/18 21:35 01/29/18 21:40 01/29/18 21:45 Temperature Pulse Rate 103 H 102 H 103 H Respiratory Rate 32 H 28 H 36 H Blood Pressure 98/66 L 100/62 101/65 Pulse Oximetry 91 L 92 L 94 L 01/29/18 21:50 01/29/18 21:55 01/29/18 22:00 Temperature Pulse Rate 97 H 96 H 101 H Respiratory Rate 17 19 25 H Blood Pressure 95/55 L 94/63 L 100/62 Pulse Oximetry 91 L 96 87 L 01/29/18 22:05 01/29/18 22:10 01/29/18 22:15 Temperature Pulse Rate 101 H 99 H 97 H Respiratory Rate 25 H 23 30 H Blood Pressure 100/62 96/67 L 97/62 L Pulse Oximetry 87 L 93 L 92 L 01/29/18 22:25 01/29/18 22:30 01/29/18 22:35 Temperature Pulse Rate 107 H 101 H 101 H Respiratory Rate 31 H 31 H 23 Blood Pressure 96/55 L 105/61 99/62 L Pulse Oximetry 76 L 92 L 95 01/29/18 22:40 01/29/18 22:45 01/29/18 22:50 Temperature Pulse Rate 97 H 100 H 99 H Respiratory Rate 22 26 H 30 H Blood Pressure 109/65 109/67 103/64 Pulse Oximetry 97 97 96 01/29/18 22:55 01/29/18 23:00 01/29/18 23:05 Temperature Pulse Rate 99 H 105 H 106 H Respiratory Rate 28 H 40 H 28 H Blood Pressure 104/68 102/72 99/66 L Pulse Oximetry 93 L 85 L 86 L 01/29/18 23:10 01/29/18 23:15 01/29/18 23:20 Temperature Pulse Rate 99 H 98 H 95 H Respiratory Rate 23 25 H 25 H Blood Pressure 106/60 105/64 93/62 L Pulse Oximetry 91 L 97 96 01/29/18 23:25 01/29/18 23:30 01/29/18 23:35 Temperature Pulse Rate 96 H 99 H 96 H Respiratory Rate 24 28 H 29 H Blood Pressure 94/59 L 93/61 L 100/63 Pulse Oximetry 99 97 99 01/29/18 23:40 01/29/18 23:45 01/29/18 23:50 Temperature Pulse Rate 100 H 96 H 97 H Respiratory Rate 26 H 28 H 28 H Blood Pressure 101/59 L 93/65 L 98/67 L Pulse Oximetry 96 96 99 01/29/18 23:55 01/30/18 00:00 01/30/18 00:05 Temperature Pulse Rate 94 H 95 H 91 H Respiratory Rate 25 H 24 25 H Blood Pressure 103/66 99/63 L 97/62 L Pulse Oximetry 99 98 99 01/30/18 00:10 01/30/18 00:15 01/30/18 00:30 Temperature Pulse Rate 92 H 97 H 101 H Respiratory Rate 22 22 21 Blood Pressure 92/60 L 88/58 L Pulse Oximetry 96 97 01/30/18 00:45 01/30/18 01:00 01/30/18 01:15 Temperature Pulse Rate 95 H 95 H 96 H Respiratory Rate 18 21 21 Blood Pressure 97/59 L 90/63 L 87/63 L Pulse Oximetry 96 96 97 01/30/18 01:30 01/30/18 01:45 01/30/18 02:00 Temperature Pulse Rate 99 H 99 H 97 H Respiratory Rate 22 20 30 H Blood Pressure 89/59 L 91/61 L 88/57 L Pulse Oximetry 92 L 95 96 01/30/18 02:15 01/30/18 02:30 01/30/18 02:45 Temperature Pulse Rate 96 H 91 H 94 H Respiratory Rate 31 H 20 25 H Blood Pressure 86/58 L 92/60 L 93/59 L Pulse Oximetry 95 95 94 L 01/30/18 03:00 01/30/18 03:16 01/30/18 03:17 Temperature Pulse Rate 94 H 107 H 105 H Respiratory Rate 35 H 31 H 34 H Blood Pressure 93/62 L 80/51 L 82/52 L Pulse Oximetry 95 88 L 87 L 01/30/18 03:30 01/30/18 03:45 01/30/18 04:00 Temperature Pulse Rate 96 H 91 H 96 H Respiratory Rate 25 H 22 16 Blood Pressure 105/66 95/62 L 98/65 L Pulse Oximetry 92 L 94 L 95 01/30/18 04:15 01/30/18 04:20 01/30/18 04:30 Temperature Pulse Rate 89 89 90 Respiratory Rate 20 16 18 Blood Pressure 91/59 L 97/54 L Pulse Oximetry 97 96 01/30/18 04:45 01/30/18 05:00 01/30/18 05:15 Temperature Pulse Rate 91 H 93 H 94 H Respiratory Rate 21 21 21 Blood Pressure 96/58 L 89/57 L 91/58 L Pulse Oximetry 95 95 91 L 01/30/18 05:30 01/30/18 05:41 01/30/18 05:45 Temperature Pulse Rate 91 H 91 H 93 H Respiratory Rate 23 22 24 Blood Pressure 83/55 L 90/59 L 93/62 L Pulse Oximetry 92 L 92 L 95 01/30/18 06:00 01/30/18 06:15 01/30/18 06:30 Temperature Pulse Rate 91 H 88 86 Respiratory Rate 22 19 17 Blood Pressure 93/61 L 86/58 L 96/62 L Pulse Oximetry 96 96 97 01/30/18 07:00 01/30/18 08:00 01/30/18 08:25 Temperature 97.7 F Pulse Rate 87 92 H Respiratory Rate 18 24 Blood Pressure 96/59 L Pulse Oximetry 92 L 93 L 01/30/18 09:00 01/30/18 10:00 01/30/18 11:16 Temperature Pulse Rate 90 89 89 Respiratory Rate 21 22 19 Blood Pressure 107/57 L 92/62 L Pulse Oximetry 92 L 93 L Intake & Output 01/29/18 01/30/18 01/30/18 18:59 06:59 18:59 Intake Total 1050 / 1050 1350 / 1350 550 / 550 Output Total 700 / 700 800 / 800 Balance 350 / 350 550 / 550 550 / 550 Weight 97 kg Intake: IV 550 / 550 600 / 600 550 / 550 Alburx 5% Inj 500 ML @ 250 mls/ 500 / 500 500 / 500 500 / 500 hr IV.SIG Q12H KAYLIN Rx#:[id number] Zosyn 2.25 GM Premix 50 ML @ 50 / 50 100 / 100 50 / 50 100 mls/hr IV.SIG Q8H KAYLIN Rx#: [id number] Oral 500 / 500 750 / 750 Output: Urine 700 / 700 800 / 800 Other: Date of Last Bowel Movement 01/27/18 01/27/18 01/27/18 # Bowel Movements 0 - Constitutional no acute distress - Routine HEENT Exam Eye: Present: EOMI - Routine Neck Exam Present: supple - Routine Respiratory Exam Present: decreased breath sounds, rales - Routine Cardiovascular Exam Present: S1, irregular rhythm - Routine Abdominal Exam Present: soft, normoactive bowel sounds - Routine Extremities Exam Present: edema Assessment and Plan - Assessment (1) Sepsis Code(s): A41.9 - Sepsis, unspecified organism Status: Acute Qualifiers: Sepsis type: sepsis due to unspecified organism Qualified Code(s): A41.9 - Sepsis, unspecified organism (2) Cellulitis of leg, right Code(s): L03.115 - Cellulitis of right lower limb Status: Acute (3) Congestive heart failure Code(s): I50.9 - Heart failure, unspecified Status: Acute Qualifiers: Heart failure type: unspecified Heart failure chronicity: chronic Qualified Code(s): I50.9 - Heart failure, unspecified (4) Chronic kidney disease (CKD) stage G4/A1, severely decreased glomerular filtration rate (GFR) between 15-29 mL/min/1.73 square meter and albuminuria creatinine ratio less than 30 mg/g Code(s): N18.4 - Chronic kidney disease, stage 4 (severe) Status: Acute - Plan Patient seen his creatinine is responding to Lasix declined to 1.9 output 1.5 L , Lasix reduce and to continue 20 mg IV every 12 hourly Cellulitis is being treated infectious disease is following He is on Zosyn and vancomycin Now on Cleocin Continue to monitor intake and output Avoid nephrotoxins Vancomycin drug levels should be monitored We will continue to monitor Follows with Dr. Webber
[2018-01-30] MEDS: Vancomycin Inj 1,500 MG in Sodium Chlor 0.9% Inj 500 ML IV.SIG SCH (14:33)
[2018-01-30] MEDS: Fluconazole 100 MG Tablet PO SCH (14:33)
[2018-01-30] MEDS: Pantoprazole Inj 40 MG Vial IV.PUSH SCH (20:22)
[2018-01-30] MEDS: Allopurinol 300 MG Tablet PO SCH (20:24)
[2018-01-31] MEDS ORDERED: Morphine Inj 4 MG/ML Vial IV.PUSH PRN (01:34)
[2018-01-31] MEDS: Piperacil/Tazo 2.25 GM Premix 50 ML IV.SIG SCH ×3 (03:00→18:16)
[2018-01-31 04:56] LABS: Baso % (Auto) 0.3 % (0.0-2.0); Eos # (Auto) 0.4 th/mm3 (0.0-0.4); Eos % (Auto) 6.7 % (0.0-4.0); Hematocrit 36.6 % (39.0-51.0); Lymph # (Auto) 0.3 th/mm3 (1.0-4.8); Lymph % (Auto) 4.6 % (9.0-44.0); Mean Corpuscular HGB Conc 32.6 % (32.0-36.0); Mean Corpuscular Hemoglobin 30.3 pg (27.0-34.0); Mean Corpuscular Volume 92.9 fL (80.0-100.0); Mean Platelet Volume 8.1 fL (7.0-11.0); Mono # (Auto) 0.5 th/mm3 (0.0-0.9); Mono % (Auto) 8.2 % (0.0-8.0); Neut # (Auto) 4.4 th/mm3 (1.8-7.7); Neut % (Auto) 80.2 % (16.0-70.0); Platelet Count 169 th/mm3 (150-450); Red Blood Count 3.94 mil/mm3 (4.50-5.90); Red Cell Distribution Width 17.3 % (11.6-17.2); White Blood Count 5.5 th/mm3 (4.0-11.0)
[2018-01-31 05:10] LABS: Albumin 1.8 g/dL (3.4-5.0); Anion Gap 9 meq/L (5-15); Aspartate Aminotransferase 15 U/L (15-37); Blood Urea Nitrogen 45 mg/dL (7-18); Calcium 7.7 mg/dL (8.5-10.1); Carbon Dioxide 26.2 meq/L (21.0-32.0); Chloride 100 meq/L (98-107); Glomerular Filtration Rate 43 mL/min (>89); Glucose,Random 83 mg/dL (74-106); Magnesium 2.2 mg/dL (1.5-2.5); Potassium 4.1 meq/L (3.5-5.1); Sodium 135 meq/L (136-145)
[2018-01-31 05:11] LABS: Alanine Aminotransferase 10 U/L (12-78)
[2018-01-31 05:14] LABS: Activated Partial Thrombo Time 33.4 sec (24.3-30.1); Alkaline Phosphatase 92 U/L (45-117); INR 1.2 Ratio; Phosphorus 3.3 mg/dL (2.5-4.9); Total Protein 4.9 g/dL (6.4-8.2)
[2018-01-31] MEDS: Heparin - SQ 10,000 UNITS/ML Vial SQ SCH ×3 (05:17→21:38)
[2018-01-31] MEDS: Levothyroxine 50 MCG Tablet PO SCH (05:18)
[2018-01-31] MEDS: Chlorhexidine Gluconate 2% 1 Pack (2 Cloths) TOPICAL SCH (05:18)
[2018-01-31] MEDS: Senna/Docusate Sodium 8.6/50 MG Tablet PO SCH ×2 (08:21→21:37)
[2018-01-31] MEDS: Polyethylene Glycol 3350 17 GM Packet PO SCH ×2 (08:24→21:37)
[2018-01-31] MEDS: Folic Acid 1 MG Tablet PO SCH (08:26)
--- NOTE | 2018-01-31 09:01 | P.PNID ---
Subjective Remarks: is a 72-year-old male with past medical history significant for diastolic heart failure, recurrent right lower extremity swelling, history of trauma to the right lower extremity with a history of hematoma in the past. Patient reports that approximately a week to 10 days prior to admission he took a trip to [place] when he was driving the car. While he was at [place] he walked around at the [facility] locally which usually does not do. He reports that normally he would take a wheelchair to navigate within [facility]. He thinks a day after this trip to the [facility] his right lower extremity started swelling significantly. He goes on to report that he stays there for about 5 days and thereafter took another road trip from [place] to [facility] where he lives permanently. With this background patient presents to [facility] with this history of progressive right lower extremity swelling as well as progressive shortness of breath over the last 1 day. Patient reports that his right lower extremity has been increasingly red, warm and swollen despite taking the additional diuretics prescribed by his primary care physician. He reports this redness now is extended into his polyuria and also there is discomfort in his groin. In the emergency department he had a severely elevated BNP at 1708, creatinine of 2.6, potassium of 5.1. Patient also has history of persistently low sodium levels on prior visits. He endorses shortness of breath, dyspnea on exertion, lower extremity edema as well as orthopnea. He denies any fevers chills, sputum production or cough. His SPO2 on admission was 88% on 4 L oxygen by nasal cannula. Patient has significant hypovolemia at a level of 1.2. His WBC count on admission was 11.8 with 94% neutrophil predominance but no bandemia. His ESR was significantly elevated at 30. While in the ER patient was persistently hypotensive and required central venous catheter insertion as well as vasopressors. Patient was in the ICU at the time of my evaluation. He was alert and oriented 3 and is able to provide the history. Urine output is good. He currently is on vasopressors although requirement has gone down since admission. He is on nasal cannula. Infectious diseases consulted for evaluation and management of Right lower extremity cellulitis possible sepsis and septic shock. Overnight events reviewed. No fevers No rash No diarrhea Antibiotics: Zosyn IV Vanco IV Lines: Lines ok Past Medical History: reviewed Allergies/Adverse Reactions: Allergies cefuroxime Allergy (Intermediate, Verified 01/27/18 18:59) hives ciprofloxacin Allergy (Intermediate, Verified 01/27/18 18:59) HIVES Objective Vital Signs 01/30/18 09:00 01/30/18 10:00 01/30/18 11:16 Temperature Pulse Rate 90 89 89 Respiratory Rate 21 22 19 Blood Pressure 107/57 L 92/62 L Pulse Oximetry 92 L 93 L 01/30/18 12:00 01/30/18 14:00 01/30/18 14:59 Temperature 97.2 F L Pulse Rate 90 94 H 86 Respiratory Rate 19 22 20 Blood Pressure 91/60 L 91/60 L Pulse Oximetry 93 L 91 L 01/30/18 16:00 01/30/18 16:15 01/30/18 16:30 Temperature 97.8 F Pulse Rate 99 H 90 86 Respiratory Rate 25 H 30 H 25 H Blood Pressure 86/58 L 94/63 L 96/60 L Pulse Oximetry 94 L 95 01/30/18 16:45 01/30/18 17:00 01/30/18 17:15 Temperature Pulse Rate 85 89 85 Respiratory Rate 25 H 21 20 Blood Pressure 97/58 L 104/57 L 95/64 L Pulse Oximetry 94 L 94 L 92 L 01/30/18 17:30 01/30/18 17:45 01/30/18 18:00 Temperature Pulse Rate 89 85 84 Respiratory Rate 28 H 22 22 Blood Pressure 82/52 L 90/58 L 94/71 L Pulse Oximetry 83 L 93 L 94 L 01/30/18 18:15 01/30/18 18:30 01/30/18 18:45 Temperature Pulse Rate 84 88 85 Respiratory Rate 20 26 H 19 Blood Pressure 94/62 L 92/66 L 93/64 L Pulse Oximetry 94 L 92 L 93 L 01/30/18 19:00 01/30/18 19:15 01/30/18 19:30 Temperature Pulse Rate 85 93 H 90 Respiratory Rate 20 20 26 H Blood Pressure 99/60 L 108/67 95/62 L Pulse Oximetry 93 L 90 L 89 L 01/30/18 20:00 01/30/18 20:07 01/30/18 20:15 Temperature Pulse Rate 94 H 91 H 89 Respiratory Rate 31 H 24 30 H Blood Pressure 96/57 L 101/67 Pulse Oximetry 90 L 91 L 100 01/30/18 20:30 01/30/18 20:45 01/30/18 21:00 Temperature Pulse Rate 92 H 94 H 95 H Respiratory Rate 21 26 H 22 Blood Pressure 89/56 L 87/62 L 94/59 L Pulse Oximetry 93 L 93 L 92 L 01/30/18 21:15 01/30/18 21:30 01/30/18 21:45 Temperature Pulse Rate 90 87 92 H Respiratory Rate 35 H 20 24 Blood Pressure 92/64 L 98/61 L 98/58 L Pulse Oximetry 97 94 L 91 L 01/30/18 22:00 01/30/18 22:15 01/30/18 22:30 Temperature Pulse Rate 90 88 89 Respiratory Rate 21 19 19 Blood Pressure 102/65 94/62 L 94/59 L Pulse Oximetry 95 94 L 91 L 01/30/18 22:45 01/30/18 23:00 01/30/18 23:15 Temperature Pulse Rate 86 86 86 Respiratory Rate 26 H 21 22 Blood Pressure 92/62 L 97/58 L 86/56 L Pulse Oximetry 96 97 95 01/30/18 23:30 01/30/18 23:45 01/31/18 00:00 Temperature Pulse Rate 95 H 89 92 H Respiratory Rate 26 H 31 H 16 Blood Pressure 96/67 L 94/57 L 95/62 L Pulse Oximetry 92 L 94 L 88 L 01/31/18 00:15 01/31/18 00:30 01/31/18 00:37 Temperature Pulse Rate 85 84 84 Respiratory Rate 24 21 24 Blood Pressure 100/59 L 87/56 L Pulse Oximetry 94 L 95 01/31/18 00:45 01/31/18 01:00 01/31/18 01:15 Temperature Pulse Rate 84 85 91 H Respiratory Rate 25 H 20 32 H Blood Pressure 94/64 L 93/57 L 91/58 L Pulse Oximetry 92 L 92 L 90 L 01/31/18 01:30 01/31/18 01:45 01/31/18 02:00 Temperature Pulse Rate 93 H 96 H 84 Respiratory Rate 29 H 25 H 20 Blood Pressure 93/63 L 88/60 L 92/59 L Pulse Oximetry 89 L 88 L 92 L 01/31/18 02:15 01/31/18 02:30 01/31/18 02:45 Temperature Pulse Rate 86 87 84 Respiratory Rate 21 23 21 Blood Pressure 89/57 L 85/62 L 96/64 L Pulse Oximetry 89 L 92 L 94 L 01/31/18 03:00 01/31/18 03:15 01/31/18 03:30 Temperature Pulse Rate 84 87 86 Respiratory Rate 21 19 20 Blood Pressure 88/59 L 88/56 L 88/58 L Pulse Oximetry 92 L 89 L 90 L 01/31/18 03:45 01/31/18 04:00 01/31/18 04:15 Temperature Pulse Rate 87 93 H 90 Respiratory Rate 23 28 H 21 Blood Pressure 92/58 L 93/67 L 96/58 L Pulse Oximetry 90 L 91 L 88 L 01/31/18 04:30 01/31/18 04:45 01/31/18 05:00 Temperature 98.4 F Pulse Rate 88 90 93 H Respiratory Rate 25 H 21 32 H Blood Pressure 90/60 L 92/57 L 77/50 L Pulse Oximetry 89 L 90 L 83 L 01/31/18 05:15 01/31/18 05:24 01/31/18 05:30 Temperature Pulse Rate 86 84 87 Respiratory Rate 21 22 20 Blood Pressure 96/63 L 99/61 L Pulse Oximetry 90 L 94 L 01/31/18 05:45 01/31/18 06:00 01/31/18 06:15 Temperature Pulse Rate 89 86 90 Respiratory Rate 25 H 17 19 Blood Pressure 97/60 L 99/58 L 95/57 L Pulse Oximetry 94 L 97 95 01/31/18 06:30 01/31/18 06:45 01/31/18 07:00 Temperature Pulse Rate 87 90 86 Respiratory Rate 19 19 17 Blood Pressure 92/54 L 93/60 L 91/59 L Pulse Oximetry 95 93 L 95 01/31/18 07:15 01/31/18 07:30 01/31/18 07:36 Temperature Pulse Rate 86 95 H 87 Respiratory Rate 19 32 H 24 Blood Pressure 87/55 L 87/51 L Pulse Oximetry 94 L 91 L 93 L Intake & Output 01/30/18 01/31/18 01/31/18 18:59 06:59 18:59 Intake Total 1350 / 1350 1865 / 1865 Output Total 750 / 750 600 / 600 Balance 600 / 600 1265 / 1265 Weight 100 kg Intake: IV 550 / 550 1115 / 1115 Alburx 5% Inj 500 ML @ 250 mls/ 500 / 500 500 / 500 hr IV.SIG Q12H KAYLIN Rx#:[id number] Zosyn 2.25 GM Premix 50 ML @ 50 / 50 100 / 100 100 mls/hr IV.SIG Q8H KAYLIN Rx#: [id number] Vancomycin Inj 1,500 MG In NS 515 / 515 Inj 500 ML @ 250 mls/hr IV.SIG Q24H KAYLIN Rx#:[id number] Oral 800 / 800 750 / 750 Output: Urine 750 / 750 600 / 600 Other: Date of Last Bowel Movement 01/27/18 01/27/18 01/27/18 16:40 Blood - Peripheral Aerobic Blood Culture - Preliminary No growth in 3 days 01/27/18 16:40 Blood - Peripheral Anaerobic Blood Culture - Final QNS - See aerobic report. 01/27/18 16:33 Blood - Peripheral Aerobic Blood Culture - Preliminary No growth in 3 days 01/27/18 16:33 Blood - Peripheral Anaerobic Blood Culture - Preliminary No growth in 3 days Lab - Hematology Results 01/30/18 01/31/18 03:30 04:30 WBC 8.0 5.5 RBC 4.22 L 3.94 L Hgb 12.6 L 12.0 L Hct 38.7 L 36.6 L MCV 91.7 92.9 MCH 29.8 30.3 MCHC 32.5 32.6 RDW 18.0 H 17.3 H Plt Count 209 169 MPV 8.2 8.1 Neut % (Auto) 87.9 H 80.2 H Lymph % (Auto) 3.2 L 4.6 L Dodge % (Auto) 5.4 8.2 H Eos % (Auto) 3.3 6.7 H Baso % (Auto) 0.2 0.3 Neut # (Auto) 7.1 4.4 Lymph # (Auto) 0.3 L 0.3 L Dodge # (Auto) 0.4 0.5 Eos # (Auto) 0.3 0.4 Baso # (Auto) 0.0 0.0 WBC Differential . . Differential Comment Auto diff final Auto diff final Lab - Chemistry Results 01/29/18 01/29/18 01/29/18 12:00 17:00 17:57 Sodium 136 Potassium 4.1 D Chloride 99 Carbon Dioxide 26.3 Anion Gap 11 BUN 50 H Creatinine 1.92 H Estimated GFR 35 L POC Glucose 128 H 100 Random Glucose 88 Lactic Acid Calcium 7.6 L Phosphorus 4.4 D Magnesium 2.3 Total Bilirubin AST ALT Alkaline Phosphatase B-Natriuretic Peptide Total Protein Albumin Cortisol 01/30/18 01/30/18 01/30/18 00:16 03:30 03:30 Sodium 138 Potassium 4.3 Chloride 101 Carbon Dioxide 27.5 Anion Gap 10 BUN 47 H Creatinine 1.93 H Estimated GFR 34 L POC Glucose 107 Random Glucose 94 Lactic Acid Calcium 7.5 L Phosphorus 4.1 Magnesium 2.5 Total Bilirubin AST ALT Alkaline Phosphatase B-Natriuretic Peptide 2207 H Total Protein Albumin Cortisol 01/30/18 01/30/18 01/30/18 05:46 12:29 17:45 Sodium Potassium Chloride Carbon Dioxide Anion Gap BUN Creatinine Estimated GFR POC Glucose 105 136 H 102 Random Glucose Lactic Acid Calcium Phosphorus Magnesium Total Bilirubin AST ALT Alkaline Phosphatase B-Natriuretic Peptide Total Protein Albumin Cortisol 01/30/18 01/31/18 01/31/18 20:33 04:30 04:30 Sodium 135 L Potassium 4.1 Chloride 100 Carbon Dioxide 26.2 Anion Gap 9 BUN 45 H Creatinine 1.61 H Estimated GFR 43 L POC Glucose 95 Random Glucose 83 Lactic Acid 0.9 Calcium 7.7 L Phosphorus 3.3 Magnesium 2.2 Total Bilirubin 1.2 H AST 15 ALT 10 L Alkaline Phosphatase 92 B-Natriuretic Peptide Total Protein 4.9 L Albumin 1.8 L Cortisol 01/31/18 01/31/18 04:30 05:11 Sodium Potassium Chloride Carbon Dioxide Anion Gap BUN Creatinine Estimated GFR POC Glucose 88 Random Glucose Lactic Acid Calcium Phosphorus Magnesium Total Bilirubin AST ALT Alkaline Phosphatase B-Natriuretic Peptide Total Protein Albumin Cortisol 15.6 Imaging: ITS Impressions Venous Doppler Study 01/27/18 16:21 CONCLUSION: 1. The study is negative for lower extremity deep venous thrombosis. Abdomen/Bladder Ultrasound 01/28/18 00:00 CONCLUSION: 1. Normal-sized kidneys with thin renal cortex Femur CT 01/28/18 00:00 CONCLUSION: 1. Diffuse subcutaneous swelling is noted throughout the right thigh suggesting diffuse cellulitis. No deep soft tissue abscess is noted. 2. No fracture, dislocation, or focal bony abnormality. Lower Extremity CT 01/28/18 00:00 CONCLUSION: 1. Diffuse subcutaneous swelling of the left lower leg suggesting diffuse cellulitis. 2. Small knee joint effusion. 3. Mild degenerative changes involving the femoral-tibial and patellofemoral joints. 4. No acute fracture or dislocation of the tibia or fibula. Chest X-Ray 01/29/18 13:20 CONCLUSION: Right-sided central line which appears a properly positioned. Radiographic findings are consistent with either congestive heart failure with pulmonary edema versus congestive heart failure with superimposed multifocal pneumonia. Physical Exam: GENERAL: Well-nourished well-developed, not in acute distress SKIN: Cool and dry, no generalized rash HEAD: Atraumatic. Normocephalic. No temporal or scalp tenderness. EYES: Pupils equal round and reactive. Scleral icterus. No injection or drainage. No petechia ENT: Nothing abnormal detected NECK: Trachea midline. Supple, nontender, no meningeal signs. CARDIOVASCULAR: HS audible. RESPIRATORY: Clear to auscultation bilaterally. GASTROINTESTINAL: Abdomen soft nontender. MUSCULOSKELETAL: Right LE with significant swelling,pitting edema, induration and erythema. The erythema extends to the inner thigh and groin area. There was erythema in the groin folds. Tenderness not out of proportion to clinical findings, no crepitus. Genital exam: no tenderness. NEUROLOGICAL: Alert oriented 3. Nonfocal. Psych cooperative IV line sites ok. Assessment and Plan - Plan Shock: combined septic and cardiogenic shock Right LE cellulitis extending to inner thigh and groin Right groin cellulitis. Acute on chronic renal failure. Pulm edema, CHF. Recs: Continue Zosyn IV for now. Continue Vanco IV (bacteremia, cellulitis as goals) Continue Diflucan for possible fungal component roxanna in groin. Continue Nystatin cream for Local application. SKY wrap BL LE Continue gentle diuresis. Elevate leg CT Rt LE reviewed no nec fascitis or gas or abscess. Follow cultures Follow clinical course. soila SHARMA
--- NOTE | 2018-01-31 09:05 | P.PNNP ---
Subjective Interval history: Renal function is stable. Continues to have considerable lower extremity edema. Physical Exam Vital signs: Vital Signs 01/30/18 09:00 01/30/18 10:00 01/30/18 11:16 Temperature Pulse Rate 90 89 89 Respiratory Rate 21 22 19 Blood Pressure 107/57 L 92/62 L Pulse Oximetry 92 L 93 L 01/30/18 12:00 01/30/18 14:00 01/30/18 14:59 Temperature 97.2 F L Pulse Rate 90 94 H 86 Respiratory Rate 19 22 20 Blood Pressure 91/60 L 91/60 L Pulse Oximetry 93 L 91 L 01/30/18 16:00 01/30/18 16:15 01/30/18 16:30 Temperature 97.8 F Pulse Rate 99 H 90 86 Respiratory Rate 25 H 30 H 25 H Blood Pressure 86/58 L 94/63 L 96/60 L Pulse Oximetry 94 L 95 01/30/18 16:45 01/30/18 17:00 01/30/18 17:15 Temperature Pulse Rate 85 89 85 Respiratory Rate 25 H 21 20 Blood Pressure 97/58 L 104/57 L 95/64 L Pulse Oximetry 94 L 94 L 92 L 01/30/18 17:30 01/30/18 17:45 01/30/18 18:00 Temperature Pulse Rate 89 85 84 Respiratory Rate 28 H 22 22 Blood Pressure 82/52 L 90/58 L 94/71 L Pulse Oximetry 83 L 93 L 94 L 01/30/18 18:15 01/30/18 18:30 01/30/18 18:45 Temperature Pulse Rate 84 88 85 Respiratory Rate 20 26 H 19 Blood Pressure 94/62 L 92/66 L 93/64 L Pulse Oximetry 94 L 92 L 93 L 01/30/18 19:00 01/30/18 19:15 01/30/18 19:30 Temperature Pulse Rate 85 93 H 90 Respiratory Rate 20 20 26 H Blood Pressure 99/60 L 108/67 95/62 L Pulse Oximetry 93 L 90 L 89 L 01/30/18 20:00 01/30/18 20:07 01/30/18 20:15 Temperature Pulse Rate 94 H 91 H 89 Respiratory Rate 31 H 24 30 H Blood Pressure 96/57 L 101/67 Pulse Oximetry 90 L 91 L 100 01/30/18 20:30 01/30/18 20:45 01/30/18 21:00 Temperature Pulse Rate 92 H 94 H 95 H Respiratory Rate 21 26 H 22 Blood Pressure 89/56 L 87/62 L 94/59 L Pulse Oximetry 93 L 93 L 92 L 01/30/18 21:15 01/30/18 21:30 01/30/18 21:45 Temperature Pulse Rate 90 87 92 H Respiratory Rate 35 H 20 24 Blood Pressure 92/64 L 98/61 L 98/58 L Pulse Oximetry 97 94 L 91 L 01/30/18 22:00 01/30/18 22:15 01/30/18 22:30 Temperature Pulse Rate 90 88 89 Respiratory Rate 21 19 19 Blood Pressure 102/65 94/62 L 94/59 L Pulse Oximetry 95 94 L 91 L 01/30/18 22:45 01/30/18 23:00 01/30/18 23:15 Temperature Pulse Rate 86 86 86 Respiratory Rate 26 H 21 22 Blood Pressure 92/62 L 97/58 L 86/56 L Pulse Oximetry 96 97 95 01/30/18 23:30 01/30/18 23:45 01/31/18 00:00 Temperature Pulse Rate 95 H 89 92 H Respiratory Rate 26 H 31 H 16 Blood Pressure 96/67 L 94/57 L 95/62 L Pulse Oximetry 92 L 94 L 88 L 01/31/18 00:15 01/31/18 00:30 01/31/18 00:37 Temperature Pulse Rate 85 84 84 Respiratory Rate 24 21 24 Blood Pressure 100/59 L 87/56 L Pulse Oximetry 94 L 95 01/31/18 00:45 01/31/18 01:00 01/31/18 01:15 Temperature Pulse Rate 84 85 91 H Respiratory Rate 25 H 20 32 H Blood Pressure 94/64 L 93/57 L 91/58 L Pulse Oximetry 92 L 92 L 90 L 01/31/18 01:30 01/31/18 01:45 01/31/18 02:00 Temperature Pulse Rate 93 H 96 H 84 Respiratory Rate 29 H 25 H 20 Blood Pressure 93/63 L 88/60 L 92/59 L Pulse Oximetry 89 L 88 L 92 L 01/31/18 02:15 01/31/18 02:30 01/31/18 02:45 Temperature Pulse Rate 86 87 84 Respiratory Rate 21 23 21 Blood Pressure 89/57 L 85/62 L 96/64 L Pulse Oximetry 89 L 92 L 94 L 01/31/18 03:00 01/31/18 03:15 01/31/18 03:30 Temperature Pulse Rate 84 87 86 Respiratory Rate 21 19 20 Blood Pressure 88/59 L 88/56 L 88/58 L Pulse Oximetry 92 L 89 L 90 L 01/31/18 03:45 01/31/18 04:00 01/31/18 04:15 Temperature Pulse Rate 87 93 H 90 Respiratory Rate 23 28 H 21 Blood Pressure 92/58 L 93/67 L 96/58 L Pulse Oximetry 90 L 91 L 88 L 01/31/18 04:30 01/31/18 04:45 01/31/18 05:00 Temperature 98.4 F Pulse Rate 88 90 93 H Respiratory Rate 25 H 21 32 H Blood Pressure 90/60 L 92/57 L 77/50 L Pulse Oximetry 89 L 90 L 83 L 01/31/18 05:15 01/31/18 05:24 01/31/18 05:30 Temperature Pulse Rate 86 84 87 Respiratory Rate 21 22 20 Blood Pressure 96/63 L 99/61 L Pulse Oximetry 90 L 94 L 01/31/18 05:45 01/31/18 06:00 01/31/18 06:15 Temperature Pulse Rate 89 86 90 Respiratory Rate 25 H 17 19 Blood Pressure 97/60 L 99/58 L 95/57 L Pulse Oximetry 94 L 97 95 01/31/18 06:30 01/31/18 06:45 01/31/18 07:00 Temperature Pulse Rate 87 90 86 Respiratory Rate 19 19 17 Blood Pressure 92/54 L 93/60 L 91/59 L Pulse Oximetry 95 93 L 95 01/31/18 07:15 01/31/18 07:30 01/31/18 07:36 Temperature Pulse Rate 86 95 H 87 Respiratory Rate 19 32 H 24 Blood Pressure 87/55 L 87/51 L Pulse Oximetry 94 L 91 L 93 L Intake & Output 01/30/18 01/31/18 01/31/18 18:59 06:59 18:59 Intake Total 1350 / 1350 1865 / 1865 Output Total 750 / 750 600 / 600 Balance 600 / 600 1265 / 1265 Weight 100 kg Intake: IV 550 / 550 1115 / 1115 Alburx 5% Inj 500 ML @ 250 mls/ 500 / 500 500 / 500 hr IV.SIG Q12H [facility]AYLIN Rx#:[id number] Zosyn 2.25 GM Premix 50 ML @ 50 / 50 100 / 100 100 mls/hr IV.SIG Q8H KAYLIN Rx#: [id number] Vancomycin Inj 1,500 MG In NS 515 / 515 Inj 500 ML @ 250 mls/hr IV.SIG Q24H KAYLIN Rx#:[id number] Oral 800 / 800 750 / 750 Output: Urine 750 / 750 600 / 600 Other: Date of Last Bowel Movement 01/27/18 01/27/18 - Constitutional no acute distress - Routine HEENT Exam Eye: Present: EOMI, PERRL - Routine Neck Exam Present: JVD - Routine Respiratory Exam Present: CTA bilaterally - Routine Cardiovascular Exam Present: RRR, S1, S2 - Routine Abdominal Exam Present: soft - Detailed Lower Extremity Exam Upper leg: Right: swelling Lower leg: Right swelling, Right erythema - Routine Skin Exam Comments: area of cellulitis right leg. - Routine Neurological Exam Present: alert, oriented X3, CN II-XII intact Assessment and Plan - Assessment (1) Acute worsening of stage 3 chronic kidney disease Code(s): N18.3 - Chronic kidney disease, stage 3 (moderate) Status: Acute Plan: Renal function is stable, improved. Non oliguric. Fluid retention is present. Continue diuretic. Positive fluid balance for the past 48 hours. Change Lasix 40 mg IV BID, add Spironolactone carefully. Avoid nephrotoxic agents. (2) Sepsis Code(s): A41.9 - Sepsis, unspecified organism Status: Acute Qualifiers: Sepsis type: sepsis due to unspecified organism Qualified Code(s): A41.9 - Sepsis, unspecified organism (3) Cellulitis of leg, right Code(s): L03.115 - Cellulitis of right lower limb Status: Acute Plan: continue antibiotics. Monitor vancomycin levels carefully, avoid level above 20. If possible transition to another agent. (4) Congestive heart failure Code(s): I50.9 - Heart failure, unspecified Status: Acute Qualifiers: Heart failure type: unspecified Heart failure chronicity: chronic Qualified Code(s): I50.9 - Heart failure, unspecified Plan: continue diuretic.
--- NOTE | 2018-01-31 11:06 | P.PNCC ---
Subjective Subjective Remarks/Hospital Course: This is a 72yM with history of diastolic heart failure who presents with a few day history of progressive RLE swelling as well as progressive shortness of breath over last 1 day. His RLE has been increasingly red, warm, and swelling larger than usual. He states he called his doctor who gave him additional diuretics. In the ER, he had a severely elevated BNP at 1708 (has had previous BNP between 1300 - 1800). Cr elevated at 2.6 (baseline Cr 1.66 - 2.0). K elevated at 5.1, but from prior visits, baseline K appears to be 5. Patient also has been persistently hyponatremic on prior visits in the high 120s/low 130s. today his sodium is 133. He complains of SOB, HERRERA, LE edema, orthopnea. He denies fever, chills, sputum production, cough. spo2 is 88% on 4L o2 by NC on my evaluation. very hypoalbuminemic at 1.2. wbc 11.8, 94% neutrophil predominance, no bandemia. ESR elevated at 30. afebrile. However, in the ER, he was persistently hypotensive, requiring central venous catheter insertion and dopamine infusion. the remainder of the ROS is negative, particularly negative for chest pain, headache, syncope, fever, chills, cough, wheezing, nausea, vomiting, diarrhea, constipation, abdominal pain, leg pain. 01/28 Patient is awake and alert on 8L simple mask, off Dopamine on Levophed 8 mics. Afebrile. 01/29: Lying in bed not in any acute distress. Remains on Levophed currently at 6 mcg/min. chest x-ray shows increasing alveolar infiltrates. Will start IV albumin and stop maintenance normal saline. Currently receiving IV Lasix SUBJECTIVE: 01/30: Resting comfortably on 5 L nasal cannula. Complaining of pain in right lower extremity but somewhat improved. Improved sensation. Noted lower extremity negative Dopplers, CT right lower extremity on 01/27. Remains on norepinephrine drip at 2 mcg/min 01/31: Weaned off norepinephrine since midnight yesterday. Patient feeling better he states that his systolic blood pressure runs 90-100. Target map above 60, start midodrine 5 mg 3 times daily Objective Vital Signs / I&O: Vital Signs 01/30/18 11:16 01/30/18 12:00 01/30/18 14:00 Temperature 97.2 F L Pulse Rate 89 90 94 H Respiratory Rate 19 19 22 Blood Pressure 91/60 L 91/60 L Pulse Oximetry 93 L 91 L 01/30/18 14:59 01/30/18 16:00 01/30/18 16:15 Temperature 97.8 F Pulse Rate 86 99 H 90 Respiratory Rate 20 25 H 30 H Blood Pressure 86/58 L 94/63 L Pulse Oximetry 94 L 01/30/18 16:30 01/30/18 16:45 01/30/18 17:00 Temperature Pulse Rate 86 85 89 Respiratory Rate 25 H 25 H 21 Blood Pressure 96/60 L 97/58 L 104/57 L Pulse Oximetry 95 94 L 94 L 01/30/18 17:15 01/30/18 17:30 01/30/18 17:45 Temperature Pulse Rate 85 89 85 Respiratory Rate 20 28 H 22 Blood Pressure 95/64 L 82/52 L 90/58 L Pulse Oximetry 92 L 83 L 93 L 01/30/18 18:00 01/30/18 18:15 01/30/18 18:30 Temperature Pulse Rate 84 84 88 Respiratory Rate 22 20 26 H Blood Pressure 94/71 L 94/62 L 92/66 L Pulse Oximetry 94 L 94 L 92 L 01/30/18 18:45 01/30/18 19:00 01/30/18 19:15 Temperature Pulse Rate 85 85 93 H Respiratory Rate 19 20 20 Blood Pressure 93/64 L 99/60 L 108/67 Pulse Oximetry 93 L 93 L 90 L 01/30/18 19:30 01/30/18 20:00 01/30/18 20:07 Temperature Pulse Rate 90 94 H 91 H Respiratory Rate 26 H 31 H 24 Blood Pressure 95/62 L 96/57 L Pulse Oximetry 89 L 90 L 91 L 01/30/18 20:15 01/30/18 20:30 01/30/18 20:45 Temperature Pulse Rate 89 92 H 94 H Respiratory Rate 30 H 21 26 H Blood Pressure 101/67 89/56 L 87/62 L Pulse Oximetry 100 93 L 93 L 01/30/18 21:00 01/30/18 21:15 01/30/18 21:30 Temperature Pulse Rate 95 H 90 87 Respiratory Rate 22 35 H 20 Blood Pressure 94/59 L 92/64 L 98/61 L Pulse Oximetry 92 L 97 94 L 01/30/18 21:45 01/30/18 22:00 01/30/18 22:15 Temperature Pulse Rate 92 H 90 88 Respiratory Rate 24 21 19 Blood Pressure 98/58 L 102/65 94/62 L Pulse Oximetry 91 L 95 94 L 01/30/18 22:30 01/30/18 22:45 01/30/18 23:00 Temperature Pulse Rate 89 86 86 Respiratory Rate 19 26 H 21 Blood Pressure 94/59 L 92/62 L 97/58 L Pulse Oximetry 91 L 96 97 01/30/18 23:15 01/30/18 23:30 01/30/18 23:45 Temperature Pulse Rate 86 95 H 89 Respiratory Rate 22 26 H 31 H Blood Pressure 86/56 L 96/67 L 94/57 L Pulse Oximetry 95 92 L 94 L 01/31/18 00:00 01/31/18 00:15 01/31/18 00:30 Temperature Pulse Rate 92 H 85 84 Respiratory Rate 16 24 21 Blood Pressure 95/62 L 100/59 L 87/56 L Pulse Oximetry 88 L 94 L 95 01/31/18 00:37 01/31/18 00:45 01/31/18 01:00 Temperature Pulse Rate 84 84 85 Respiratory Rate 24 25 H 20 Blood Pressure 94/64 L 93/57 L Pulse Oximetry 92 L 92 L 01/31/18 01:15 01/31/18 01:30 01/31/18 01:45 Temperature Pulse Rate 91 H 93 H 96 H Respiratory Rate 32 H 29 H 25 H Blood Pressure 91/58 L 93/63 L 88/60 L Pulse Oximetry 90 L 89 L 88 L 01/31/18 02:00 01/31/18 02:15 01/31/18 02:30 Temperature Pulse Rate 84 86 87 Respiratory Rate 20 21 23 Blood Pressure 92/59 L 89/57 L 85/62 L Pulse Oximetry 92 L 89 L 92 L 01/31/18 02:45 01/31/18 03:00 01/31/18 03:15 Temperature Pulse Rate 84 84 87 Respiratory Rate 21 21 19 Blood Pressure 96/64 L 88/59 L 88/56 L Pulse Oximetry 94 L 92 L 89 L 01/31/18 03:30 01/31/18 03:45 01/31/18 04:00 Temperature Pulse Rate 86 87 93 H Respiratory Rate 20 23 28 H Blood Pressure 88/58 L 92/58 L 93/67 L Pulse Oximetry 90 L 90 L 91 L 01/31/18 04:15 01/31/18 04:30 01/31/18 04:45 Temperature Pulse Rate 90 88 90 Respiratory Rate 21 25 H 21 Blood Pressure 96/58 L 90/60 L 92/57 L Pulse Oximetry 88 L 89 L 90 L 01/31/18 05:00 01/31/18 05:15 01/31/18 05:24 Temperature 98.4 F Pulse Rate 93 H 86 84 Respiratory Rate 32 H 21 22 Blood Pressure 77/50 L 96/63 L Pulse Oximetry 83 L 90 L 01/31/18 05:30 01/31/18 05:45 01/31/18 06:00 Temperature Pulse Rate 87 89 86 Respiratory Rate 20 25 H 17 Blood Pressure 99/61 L 97/60 L 99/58 L Pulse Oximetry 94 L 94 L 97 01/31/18 06:15 01/31/18 06:30 01/31/18 06:45 Temperature Pulse Rate 90 87 90 Respiratory Rate 19 19 19 Blood Pressure 95/57 L 92/54 L 93/60 L Pulse Oximetry 95 95 93 L 01/31/18 07:00 01/31/18 07:15 01/31/18 07:30 Temperature Pulse Rate 86 86 95 H Respiratory Rate 17 19 32 H Blood Pressure 91/59 L 87/55 L 87/51 L Pulse Oximetry 95 94 L 91 L 01/31/18 07:36 Temperature Pulse Rate 87 Respiratory Rate 24 Blood Pressure Pulse Oximetry 93 L Intake & Output 01/30/18 01/31/18 01/31/18 18:59 06:59 18:59 Intake Total 1350 / 1350 1865 / 1865 Output Total 750 / 750 600 / 600 Balance 600 / 600 1265 / 1265 Weight 100 kg Intake: IV 550 / 550 1115 / 1115 Alburx 5% Inj 500 ML @ 250 mls/ 500 / 500 500 / 500 hr IV.SIG Q12H [facility] Rx#:[id number] Zosyn 2.25 GM Premix 50 ML @ 50 / 50 100 / 100 100 mls/hr IV.SIG Q8H [facility] Rx#: [id number] Vancomycin Inj 1,500 MG In NS 515 / 515 Inj 500 ML @ 250 mls/hr IV.SIG Q24H [facility] Rx#:[id number] Oral 800 / 800 750 / 750 Output: Urine 750 / 750 600 / 600 Other: Date of Last Bowel Movement 01/27/18 01/27/18 Result Diagrams: 01/31/18 04:30 01/31/18 04:30 Objective Remarks: GENERAL: Patient is 72 yo male, resting in bed in no acute distress SKIN: Warm and dry. Noted skin peeling right lower extremity. Erythematous below the knee. HEAD: Normocephalic. EYES: No scleral icterus. No injection or drainage. NECK: Supple, trachea midline. No JVD or lymphadenopathy. CARDIOVASCULAR: Irregularly irregular. S1, S2. No S4. Without murmurs, gallops, or rubs. RESPIRATORY: Diminished breath sounds with mild end expiratory wheeze bilaterally. GASTROINTESTINAL: Abdomen soft, non-tender, nondistended. MUSCULOSKELETAL: No cyanosis, 1+ left lower extremity edema. RLE: ++ edema, erythematous extends to the inner thigh and groin area. Neuro: Awake and alert. Oriented. Moves all extremities follows commands Assessment and Plan - Assessment and Plan Plan: Assessment: 72yM with Diastolic Congestive Heart Failure exacerbation with associated acute respiratory distress and acute hypoxemia, with severe RLE cellulitis. Bedside echo would suggest he does not need additional intravascular fluid, clinically improving. Currently weaned off Levophed continue forced diuresis creatinine is improving Septic shock Acute Diastolic Congestive Heart Failure Exacerbation Right lower extremity cellulitis Hx Atrial fibrillation Acute Kidney injury superimposed on Chronic Kidney Disease Stage V Acute on chronic respiratory insufficiency -3 L nasal cannula at home Severe acute protein calorie malnutrition History of essential hypertension Hypothyroidism History of gout History of severe pulmonary hypertension Plan Neuro:Awake and alert. Avoid long-acting sedation Pulm: Wean down oxygen as [place] keep sats >92% Bronchodilators with albuterol/ipratropium every 6 hours with albuterol aerosols every 2 hours as needed dyspnea CV: Off norepinephrine keep MAP>65mmHg. Start Midrin 5 mg 3 times daily. Holding diltiazem 120 mg daily/home medication. Patient systolic blood pressure runs 90-100 home 07/11 echocardiogram -The left ventricular systolic function is normal with an estimated ejection fraction in the range of 55-60%. The right ventricle is moderately dilated. The right ventricular systolic function is severely decreased. The RA size is moderately dilated. Mild-to- moderate mitral valve regurgitation. There is trace tricuspid valve regurgitation. The estimated pulmonary arterial pressure is 62.4 mmHg. There is estimated [id number] pulmonary hypertension present IV albumin 25 g every 12. Continue ASA 81mg daily : Monitor renal function, I/O's, avoid nephrotoxins Cr:1.63 today On furosemide 80mg BID at home., Nephrology following, furosemide to 40 mg IV every 12. Aldactone per nephrology GI: On Cardiac diet. Pantoprazole for GI prophylaxis ID: Continue with abx (Vanco, piperacillin/tazobactam, fluconazole) adjust doses of abx per renal function. Follow up on blood cultures, ID following CRP:30, follow up on Procalcitonin level-3.5 Heme: Monitor CBC Endo: SSI for glycemic control On levothyroxine 50mcg daily On allopurinol 100 mg daily DVT prophylaxis- On Heparin DQ GI prophylaxis- On pantoprazole 40mg daily IV access: Left Femoral central line placed in ED 01/27-01/29. Right subclavian CVL placed 01/29 Level 2 follow-up. Hospitalist consulted to assume care in a.m.
[2018-01-31] MEDS: Albumin Human 5% Inj 500 ML IV.SIG SCH ×2 (11:40→21:35)
[2018-01-31] MEDS: Spironolactone 25 MG Tablet PO SCH (11:42)
--- NOTE | 2018-01-31 13:19 | ECHRPT ---
Indication: HEART FAILURE CONCLUSIONS The left ventricular systolic function is normal with an estimated ejection fraction in the range of 55-60%. Mild concentric left ventricular hypertrophy. There is a flattened septum in systole and diastole consistent with right ventricle pressure and vol ume overload. The right ventricle is moderately dilated. The right ventricular systoilc function is moderately decreased. Mild mitral valve regurgitation. There is moderate tricuspid regurgitation. There is estimated severe pulmonary hypertension present ( > 70 mmHg). BP: / HR: Rhythm: Sinus MEASUREMENTS (Male / Female) Normal Values Technical Quality:Excellent 2D ECHO LV Diastolic Diameter PLAX 3.7 cm 4.2 - 5.9 / 3.9 - 5.3 cm LV Systolic Diameter PLAX 2.8 cm IVS Diastolic Thickness 1.3 cm 0.6 - 1.0 / 0.6 - 0.9 cm LVPW Diastolic Thickness 1.3 cm 0.6 - 1.0 / 0.6 - 0.9 cm LV Relative Wall Thickness 0.7 LA Systolic Diameter LX 4.0 cm 3.0 - 4.0 / 2.7 - 3.8 cm LV Ejection Fraction MOD 4C 58.8 % LV Ejection Fraction 4C AL 59.5 % DOPPLER TR Peak Velocity 432.0 cm/s TR Peak Gradient 74.6 mmHg Right Atrial Pressure 10.0 mmHg Pulmonary Artery Systolic Pressu 84.6 mmHg Right Ventricular Systolic Press 84.6 mmHg FINDINGS LEFT VENTRICLE The left ventricular systolic function is normal with an estimated ejection fraction in the range of 55-60%. Normal left ventricular size. Mild concentric left ventricular hypertrophy. No regional wall motion abnormalities are present. There is a flattened septum in systole and diastole consistent with right ventricle pressure and vol ume overload. RIGHT VENTRICLE The right ventricle is moderately dilated. The right ventricular systoilc function is moderately decreased. LEFT ATRIUM The left atrial size is mildly dilated. RIGHT ATRIUM The right atrial size is moderately dilated. ATRIAL SEPTUM Normal atrial septal thickness. AORTA The aortic root and proximal ascending aorta are normal in size on limited imaging. MITRAL VALVE Structurally normal mitral valve. Mild mitral valve regurgitation. No mitral valve stenosis. AORTIC VALVE Grossly normal No aortic valve stenosis. No aortic valve regurgitation. TRICUSPID VALVE Structurally normal tricuspid valve. There is moderate tricuspid regurgitation. The estimated pulmonary arterial pressure is 84.6 mmHg. There is estimated severe pulmonary hypertension present ( > 70 mmHg). PULMONARY VALVE The pulmonary valve is not well visualized. VESSELS The inferior vena cava is dilated. Dilated inferior vena cava with poor inspiration collapse consistent with elevated right atrial pres sure. Mason Zamorano DO (Electronically Signed) Final Date:31 January 2018 13:18
[2018-01-31] MEDS: Vancomycin Inj 1,500 MG in Sodium Chlor 0.9% Inj 500 ML IV.SIG SCH (13:50)
[2018-01-31] MEDS: Fluconazole 100 MG Tablet PO SCH (16:07)
[2018-01-31] MEDS ORDERED: Cathflo Activase Inj 2 MG Vial I-CATHETER ONE (17:30)
[2018-01-31] MEDS: Pantoprazole Inj 40 MG Vial IV.PUSH SCH (21:38)
[2018-01-31] MEDS: Allopurinol 300 MG Tablet PO SCH (21:38)
[2018-02-01] MEDS: Piperacil/Tazo 2.25 GM Premix 50 ML IV.SIG SCH (03:17)
[2018-02-01] MEDS: Chlorhexidine Gluconate 2% 1 Pack (2 Cloths) TOPICAL SCH (03:18)
[2018-02-01] MEDS: Heparin - SQ 10,000 UNITS/ML Vial SQ SCH ×3 (05:51→23:56)
[2018-02-01] MEDS: Levothyroxine 50 MCG Tablet PO SCH (05:51)
[2018-02-01] MEDS: Folic Acid 1 MG Tablet PO SCH (08:03)
[2018-02-01] MEDS: Spironolactone 25 MG Tablet PO SCH (08:03)
[2018-02-01] MEDS: Senna/Docusate Sodium 8.6/50 MG Tablet PO SCH ×2 (08:04→20:22)
[2018-02-01] MEDS: Albumin Human 5% Inj 500 ML IV.SIG SCH ×2 (08:04→20:21)
[2018-02-01] MEDS: Polyethylene Glycol 3350 17 GM Packet PO SCH ×2 (08:04→20:22)
[2018-02-01] MEDS: Ferrous Sulfate 325 MG Tablet PO SCH (08:07)
--- NOTE | 2018-02-01 10:30 | P.PNID ---
Subjective Remarks: is a 72-year-old male with past medical history significant for diastolic heart failure, recurrent right lower extremity swelling, history of trauma to the right lower extremity with a history of hematoma in the past. Patient reports that approximately a week to 10 days prior to admission he took a trip to [place] when he was driving the car. While he was at [place] he walked around at the [facility] locally which usually does not do. He reports that normally he would take a wheelchair to navigate within [facility]. He thinks a day after this trip to the [facility] his right lower extremity started swelling significantly. He goes on to report that he stays there for about 5 days and thereafter took another road trip from [place] to [facility] where he lives permanently. With this background patient presents to [facility] with this history of progressive right lower extremity swelling as well as progressive shortness of breath over the last 1 day. Patient reports that his right lower extremity has been increasingly red, warm and swollen despite taking the additional diuretics prescribed by his primary care physician. He reports this redness now is extended into his polyuria and also there is discomfort in his groin. In the emergency department he had a severely elevated BNP at 1708, creatinine of 2.6, potassium of 5.1. Patient also has history of persistently low sodium levels on prior visits. He endorses shortness of breath, dyspnea on exertion, lower extremity edema as well as orthopnea. He denies any fevers chills, sputum production or cough. His SPO2 on admission was 88% on 4 L oxygen by nasal cannula. Patient has significant hypovolemia at a level of 1.2. His WBC count on admission was 11.8 with 94% neutrophil predominance but no bandemia. His ESR was significantly elevated at 30. While in the ER patient was persistently hypotensive and required central venous catheter insertion as well as vasopressors. Patient was in the ICU at the time of my evaluation. He was alert and oriented 3 and is able to provide the history. Urine output is good. He currently is on vasopressors although requirement has gone down since admission. He is on nasal cannula. Infectious diseases consulted for evaluation and management of Right lower extremity cellulitis possible sepsis and septic shock. Overnight events reviewed. Patient reports low blood pressure chronic over last 6-8 months. Pressors discontinued. No fevers No rash No diarrhea Antibiotics: Zosyn IV Vanco IV Lines: Lines ok Past Medical History: reviewed Allergies/Adverse Reactions: Allergies cefuroxime Allergy (Intermediate, Verified 01/27/18 18:59) hives ciprofloxacin Allergy (Intermediate, Verified 01/27/18 18:59) HIVES Objective Vital Signs 01/31/18 11:29 01/31/18 12:00 01/31/18 14:00 Temperature 98.1 F Pulse Rate 93 H 96 H 79 Respiratory Rate 18 21 Blood Pressure 91/66 L Pulse Oximetry 01/31/18 15:13 01/31/18 16:00 01/31/18 18:00 Temperature 97.1 F L Pulse Rate 79 84 83 Respiratory Rate 25 H 19 Blood Pressure 88/60 L Pulse Oximetry 94 L 01/31/18 19:00 01/31/18 20:00 01/31/18 20:41 Temperature 97.6 F 97.6 F Pulse Rate 84 84 84 Respiratory Rate 26 H 26 H 17 Blood Pressure 86/54 L 86/54 L Pulse Oximetry 93 L 93 L 93 L 01/31/18 21:00 01/31/18 22:00 01/31/18 23:00 Temperature 97.8 F Pulse Rate 75 90 88 Respiratory Rate 20 28 H 26 H Blood Pressure 84/54 L 104/57 L 139/67 Pulse Oximetry 96 96 98 01/31/18 23:24 02/01/18 00:00 02/01/18 00:30 Temperature 98.7 F Pulse Rate 80 81 80 Respiratory Rate 16 25 H 16 Blood Pressure 86/56 L 92/57 L Pulse Oximetry 95 92 L 02/01/18 01:00 02/01/18 02:00 02/01/18 03:00 Temperature 98.7 F 98.4 F 98.3 F Pulse Rate 84 83 83 Respiratory Rate 15 15 24 Blood Pressure 94/52 L 79/57 L 88/57 L Pulse Oximetry 91 L 89 L 91 L 02/01/18 04:00 02/01/18 05:00 02/01/18 06:00 Temperature 98.5 F 98.5 F 98.5 F Pulse Rate 92 H 81 85 Respiratory Rate 28 H 24 21 Blood Pressure 95/63 L 83/52 L 85/53 L Pulse Oximetry 93 L 94 L 94 L 02/01/18 07:00 02/01/18 08:00 02/01/18 09:00 Temperature 97.6 F Pulse Rate 79 80 86 Respiratory Rate 22 27 H 32 H Blood Pressure 84/55 L 84/54 L 92/58 L Pulse Oximetry 93 L 92 L 89 L Intake & Output 01/31/18 02/01/18 02/01/18 18:59 06:59 18:59 Intake Total 1400 / 1400 1300 / 1300 Output Total 600 / 600 1000 / 1000 Balance 800 / 800 300 / 300 Weight 105 kg Intake: IV 600 / 600 800 / 800 Alburx 5% Inj 500 ML @ 250 mls/ 500 / 500 750 / 750 hr IV.SIG Q12H [facility] Rx#:[id number] Zosyn 2.25 GM Premix 50 ML @ 100 / 100 50 / 50 100 mls/hr IV.SIG Q8H [facility] Rx#: [id number] Oral 800 / 800 500 / 500 Output: Urine 600 / 600 700 / 700 Stool 300 / 300 Urine/Stool Mix 0 / 0 Other: # Voids 2 # Incontinent Voids 1 Date of Last Bowel Movement 01/31/18 02/01/18 01/31/18 # Bowel Movements 1 0 # Incontinent Bowel Movements 0 01/27/18 16:40 Blood - Peripheral Aerobic Blood Culture - Preliminary No growth in 4 days 01/27/18 16:40 Blood - Peripheral Anaerobic Blood Culture - Final QNS - See aerobic report. 01/27/18 16:33 Blood - Peripheral Aerobic Blood Culture - Preliminary No growth in 4 days 01/27/18 16:33 Blood - Peripheral Anaerobic Blood Culture - Preliminary No growth in 4 days Lab - Hematology Results 01/31/18 04:30 WBC 5.5 RBC 3.94 L Hgb 12.0 L Hct 36.6 L MCV 92.9 MCH 30.3 MCHC 32.6 RDW 17.3 H Plt Count 169 MPV 8.1 Neut % (Auto) 80.2 H Lymph % (Auto) 4.6 L [place] % (Auto) 8.2 H Eos % (Auto) 6.7 H Baso % (Auto) 0.3 Neut # (Auto) 4.4 Lymph # (Auto) 0.3 L [place] # (Auto) 0.5 Eos # (Auto) 0.4 Baso # (Auto) 0.0 WBC Differential . Differential Comment Auto diff final Lab - Chemistry Results 01/30/18 01/30/18 01/30/18 12:29 17:45 20:33 Sodium Potassium Chloride Carbon Dioxide Anion Gap BUN Creatinine Estimated GFR POC Glucose 136 H 102 95 Random Glucose Lactic Acid Calcium Phosphorus Magnesium Total Bilirubin AST ALT Alkaline Phosphatase Total Protein Albumin Cortisol 01/31/18 01/31/18 01/31/18 04:30 04:30 04:30 Sodium 135 L Potassium 4.1 Chloride 100 Carbon Dioxide 26.2 Anion Gap 9 BUN 45 H Creatinine 1.61 H Estimated GFR 43 L POC Glucose Random Glucose 83 Lactic Acid 0.9 Calcium 7.7 L Phosphorus 3.3 Magnesium 2.2 Total Bilirubin 1.2 H AST 15 ALT 10 L Alkaline Phosphatase 92 Total Protein 4.9 L Albumin 1.8 L Cortisol 15.6 01/31/18 01/31/18 01/31/18 05:11 09:00 13:40 Sodium Potassium Chloride Carbon Dioxide Anion Gap BUN Creatinine Estimated GFR POC Glucose 88 84 93 Random Glucose Lactic Acid Calcium Phosphorus Magnesium Total Bilirubin AST ALT Alkaline Phosphatase Total Protein Albumin Cortisol 01/31/18 01/31/18 02/01/18 17:57 20:37 07:59 Sodium Potassium Chloride Carbon Dioxide Anion Gap BUN Creatinine Estimated GFR POC Glucose 107 96 98 Random Glucose Lactic Acid Calcium Phosphorus Magnesium Total Bilirubin AST ALT Alkaline Phosphatase Total Protein Albumin Cortisol Imaging: ITS Impressions Venous Doppler Study 01/27/18 16:21 CONCLUSION: 1. The study is negative for lower extremity deep venous thrombosis. Abdomen/Bladder Ultrasound 01/28/18 00:00 CONCLUSION: 1. Normal-sized kidneys with thin renal cortex Femur CT 01/28/18 00:00 CONCLUSION: 1. Diffuse subcutaneous swelling is noted throughout the right thigh suggesting diffuse cellulitis. No deep soft tissue abscess is noted. 2. No fracture, dislocation, or focal bony abnormality. Lower Extremity CT 01/28/18 00:00 CONCLUSION: 1. Diffuse subcutaneous swelling of the left lower leg suggesting diffuse cellulitis. 2. Small knee joint effusion. 3. Mild degenerative changes involving the femoral-tibial and patellofemoral joints. 4. No acute fracture or dislocation of the tibia or fibula. Chest X-Ray 01/29/18 13:20 CONCLUSION: Right-sided central line which appears a properly positioned. Radiographic findings are consistent with either congestive heart failure with pulmonary edema versus congestive heart failure with superimposed multifocal pneumonia. Physical Exam: GENERAL: Well-nourished well-developed, not in acute distress SKIN: Cool and dry, no generalized rash HEAD: Atraumatic. Normocephalic. No temporal or scalp tenderness. EYES: Pupils equal round and reactive. Scleral icterus. No injection or drainage. No petechia ENT: Nothing abnormal detected NECK: Trachea midline. Supple, nontender, no meningeal signs. CARDIOVASCULAR: HS audible. RESPIRATORY: Clear to auscultation bilaterally. GASTROINTESTINAL: Abdomen soft nontender. MUSCULOSKELETAL: Right LE with significant swelling,pitting edema, induration and erythema. The erythema extends to the inner thigh and groin area. There was erythema in the groin folds. Genital exam: no tenderness. NEUROLOGICAL: Alert oriented 3. Nonfocal. Psych cooperative IV line sites ok. Assessment and Plan - Plan Shock: combined septic and cardiogenic shock Right LE cellulitis extending to inner thigh and groin Right groin cellulitis. Acute on chronic renal failure. Pulm edema, CHF. Recs: DC Zosyn IV DC Vanco IV Start Zyvox IV (watch HCO3 and platelets, avoid addition of SSRI due to drug interactions) Continue Diflucan for possible fungal component roxanna in groin. Continue Nystatin cream for Local application. SKY wrap BL LE Continue gentle diuresis. Elevate leg Follow cultures Follow clinical course. soila SHARMA
--- NOTE | 2018-02-01 10:45 | P.PNNP ---
Subjective Interval history: Renal function panel is pending. Non oliguric. Patient feels about the same. Physical Exam Vital signs: Vital Signs 01/31/18 11:29 01/31/18 12:00 01/31/18 14:00 Temperature 98.1 F Pulse Rate 93 H 96 H 79 Respiratory Rate 18 21 Blood Pressure 91/66 L Pulse Oximetry 01/31/18 15:13 01/31/18 16:00 01/31/18 18:00 Temperature 97.1 F L Pulse Rate 79 84 83 Respiratory Rate 25 H 19 Blood Pressure 88/60 L Pulse Oximetry 94 L 01/31/18 19:00 01/31/18 20:00 01/31/18 20:41 Temperature 97.6 F 97.6 F Pulse Rate 84 84 84 Respiratory Rate 26 H 26 H 17 Blood Pressure 86/54 L 86/54 L Pulse Oximetry 93 L 93 L 93 L 01/31/18 21:00 01/31/18 22:00 01/31/18 23:00 Temperature 97.8 F Pulse Rate 75 90 88 Respiratory Rate 20 28 H 26 H Blood Pressure 84/54 L 104/57 L 139/67 Pulse Oximetry 96 96 98 01/31/18 23:24 02/01/18 00:00 02/01/18 00:30 Temperature 98.7 F Pulse Rate 80 81 80 Respiratory Rate 16 25 H 16 Blood Pressure 86/56 L 92/57 L Pulse Oximetry 95 92 L 02/01/18 01:00 02/01/18 02:00 02/01/18 03:00 Temperature 98.7 F 98.4 F 98.3 F Pulse Rate 84 83 83 Respiratory Rate 15 15 24 Blood Pressure 94/52 L 79/57 L 88/57 L Pulse Oximetry 91 L 89 L 91 L 02/01/18 04:00 02/01/18 05:00 02/01/18 06:00 Temperature 98.5 F 98.5 F 98.5 F Pulse Rate 92 H 81 85 Respiratory Rate 28 H 24 21 Blood Pressure 95/63 L 83/52 L 85/53 L Pulse Oximetry 93 L 94 L 94 L 02/01/18 07:00 02/01/18 08:00 02/01/18 09:00 Temperature 97.6 F Pulse Rate 79 80 86 Respiratory Rate 22 27 H 32 H Blood Pressure 84/55 L 84/54 L 92/58 L Pulse Oximetry 93 L 92 L 89 L Intake & Output 01/31/18 02/01/18 02/01/18 18:59 06:59 18:59 Intake Total 1400 / 1400 1300 / 1300 Output Total 600 / 600 1000 / 1000 Balance 800 / 800 300 / 300 Weight 105 kg Intake: IV 600 / 600 800 / 800 Alburx 5% Inj 500 ML @ 250 mls/ 500 / 500 750 / 750 hr IV.SIG Q12H [facility] Rx#:[id number] Zosyn 2.25 GM Premix 50 ML @ 100 / 100 50 / 50 100 mls/hr IV.SIG Q8H KAYLIN Rx#: [id number] Oral 800 / 800 500 / 500 Output: Urine 600 / 600 700 / 700 Stool 300 / 300 Urine/Stool Mix 0 / 0 Other: # Voids 2 # Incontinent Voids 1 Date of Last Bowel Movement 01/31/18 02/01/18 01/31/18 # Bowel Movements 1 0 # Incontinent Bowel Movements 0 - Constitutional chronically ill appearing - Routine HEENT Exam Head: Present: normocephalic, atraumatic - Routine Respiratory Exam Present: rhonchi, wheezes, crackles - Routine Cardiovascular Exam Present: S1, S2 - Routine Abdominal Exam Present: soft - Routine Extremities Exam Present: edema Assessment and Plan - Assessment (1) Acute worsening of stage 3 chronic kidney disease Code(s): N18.3 - Chronic kidney disease, stage 3 (moderate) Status: Acute Plan: Renal function was stable, improved. Non oliguric. Fluid retention is present. Continue diuretic. Changes Lasix 40 mg IV BID, added Spironolactone carefully. Avoid nephrotoxic agents. (2) Sepsis Code(s): A41.9 - Sepsis, unspecified organism Status: Acute Qualifiers: Sepsis type: sepsis due to unspecified organism Qualified Code(s): A41.9 - Sepsis, unspecified organism (3) Cellulitis of leg, right Code(s): L03.115 - Cellulitis of right lower limb Status: Acute Plan: Patient is now on Zyvox and Diflucan. (4) Congestive heart failure Code(s): I50.9 - Heart failure, unspecified Status: Acute Qualifiers: Heart failure type: unspecified Heart failure chronicity: chronic Qualified Code(s): I50.9 - Heart failure, unspecified Plan: continue diuretic.
[2018-02-01] MEDS ORDERED: Pharmacy Ordered Lab Info OTHER ONE (12:45)
[2018-02-01] MEDS: Fluconazole 100 MG Tablet PO SCH (13:45)
--- NOTE | 2018-02-01 16:37 | P.PNIM ---
Subjective Interval history: Patient says he is breathing about the same as yesterday. Denies any chest pain. Physical Exam Vital signs: Vital Signs 01/31/18 18:00 01/31/18 19:00 01/31/18 20:00 Temperature 97.6 F 97.6 F Pulse Rate 83 84 84 Respiratory Rate 26 H 26 H Blood Pressure 86/54 L 86/54 L Pulse Oximetry 93 L 93 L 01/31/18 20:41 01/31/18 21:00 01/31/18 22:00 Temperature Pulse Rate 84 75 90 Respiratory Rate 17 20 28 H Blood Pressure 84/54 L 104/57 L Pulse Oximetry 93 L 96 96 01/31/18 23:00 01/31/18 23:24 02/01/18 00:00 Temperature 97.8 F 98.7 F Pulse Rate 88 80 81 Respiratory Rate 26 H 16 25 H Blood Pressure 139/67 86/56 L Pulse Oximetry 98 95 02/01/18 00:30 02/01/18 01:00 02/01/18 02:00 Temperature 98.7 F 98.4 F Pulse Rate 80 84 83 Respiratory Rate 16 15 15 Blood Pressure 92/57 L 94/52 L 79/57 L Pulse Oximetry 92 L 91 L 89 L 02/01/18 03:00 02/01/18 04:00 02/01/18 05:00 Temperature 98.3 F 98.5 F 98.5 F Pulse Rate 83 92 H 81 Respiratory Rate 24 28 H 24 Blood Pressure 88/57 L 95/63 L 83/52 L Pulse Oximetry 91 L 93 L 94 L 02/01/18 06:00 02/01/18 07:00 02/01/18 08:00 Temperature 98.5 F 97.6 F Pulse Rate 85 79 80 Respiratory Rate 21 22 27 H Blood Pressure 85/53 L 84/55 L 84/54 L Pulse Oximetry 94 L 93 L 92 L 02/01/18 09:00 02/01/18 10:00 02/01/18 11:00 Temperature Pulse Rate 86 85 77 Respiratory Rate 32 H 29 H 22 Blood Pressure 92/58 L 102/74 97/62 L Pulse Oximetry 89 L 90 L 90 L 02/01/18 12:00 02/01/18 13:00 02/01/18 14:00 Temperature 97.8 F Pulse Rate 71 75 78 Respiratory Rate 21 23 29 H Blood Pressure 90/62 L 94/63 L 104/73 Pulse Oximetry 92 L 91 L 89 L Intake & Output 01/31/18 02/01/18 02/01/18 18:59 06:59 18:59 Intake Total 1400 / 1400 1300 / 1300 Output Total 600 / 600 1000 / 1000 Balance 800 / 800 300 / 300 Weight 105 kg Intake: IV 600 / 600 800 / 800 Alburx 5% Inj 500 ML @ 250 mls/ 500 / 500 750 / 750 hr IV.SIG Q12H [facility] Rx#:[id number] Zosyn 2.25 GM Premix 50 ML @ 100 / 100 50 / 50 100 mls/hr IV.SIG Q8H [facility]LIN Rx#: [id number] Oral 800 / 800 500 / 500 Output: Urine 600 / 600 700 / 700 Stool 300 / 300 Urine/Stool Mix 0 / 0 Other: # Voids 2 # Incontinent Voids 1 Date of Last Bowel Movement 01/31/18 02/01/18 01/31/18 # Bowel Movements 1 0 # Incontinent Bowel Movements 0 Narrative: GENERAL: Sitting up in bed. Appears comfortable. SKIN: Warm and dry. HEAD: Normocephalic. EYES: No scleral icterus. No injection or drainage. NECK: Supple, trachea midline. positive JVD CARDIOVASCULAR: Regular rate and rhythm without murmurs, gallops, or rubs. RESPIRATORY: Breath sounds equal bilaterally. No accessory muscle use. GASTROINTESTINAL: Abdomen soft, non-tender, nondistended. MUSCULOSKELETAL: No cyanosis. +2 bilateral lower extremity edema BACK: Nontender without obvious deformity. No CVA tenderness. Results - Labs CBC & Chem 7: 01/31/18 04:30 01/31/18 04:30 Laboratory Results - last 24 hr 01/31/18 01/31/18 02/01/18 17:57 20:37 07:59 POC Glucose 107 96 98 02/01/18 02/01/18 11:22 16:00 POC Glucose 105 108 Microbiology 01/27/18 16:40 Blood - Peripheral Aerobic Blood Culture - Final No growth in 5 days 01/27/18 16:40 Blood - Peripheral Anaerobic Blood Culture - Final QNS - See aerobic report. 01/27/18 16:33 Blood - Peripheral Aerobic Blood Culture - Final No growth in 5 days 01/27/18 16:33 Blood - Peripheral Anaerobic Blood Culture - Final No growth in 5 days Assessment and Plan - Plan = 02/01/18. //Hypotension. //COPD exacerbation. //Severe pulmonary hypertension on echocardiogram. Discussed with machine gun mechanic. Will you reorder echocardiogram. Will consult pulmonary. We have a situation now with low systolic blood pressures requiring by mouth pressure with midodrine. Unable to diurese due to low blood pressure. //Right lower extremity cellulitis = Continue on broad-spectrum antibiotics for cellulitis. Assessment: 72yM with Diastolic Congestive Heart Failure exacerbation with associated acute respiratory distress and acute hypoxemia, with severe RLE cellulitis. Bedside echo would suggest he does not need additional intravascular fluid, clinically improving. Currently weaned off Levophed continue forced diuresis creatinine is improving //Septic shock //Acute Diastolic Congestive Heart Failure Exacerbation //Right lower extremity cellulitis //Hx Atrial fibrillation //Acute Kidney injury superimposed on Chronic Kidney Disease Stage V //Acute on chronic respiratory insufficiency -3 L nasal cannula at home //Severe acute protein calorie malnutrition //History of essential hypertension //Hypothyroidism //History of gout //History of severe pulmonary hypertension Plan Neuro:Awake and alert. Avoid long-acting sedation Pulm: Wean down oxygen as [place] keep sats >92% Bronchodilators with albuterol/ipratropium every 6 hours with albuterol aerosols every 2 hours as needed dyspnea CV: Off norepinephrine keep MAP>65mmHg. Start Midrin 5 mg 3 times daily. Holding diltiazem 120 mg daily/home medication. Patient systolic blood pressure runs 90-100 home 07/11 echocardiogram -The left ventricular systolic function is normal with an estimated ejection fraction in the range of 55-60%. The right ventricle is moderately dilated. The right ventricular systolic function is severely decreased. The RA size is moderately dilated. Mild-to- moderate mitral valve regurgitation. There is trace tricuspid valve regurgitation. The estimated pulmonary arterial pressure is 62.4 mmHg. There is estimated [id number]-[id number] pulmonary hypertension present IV albumin 25 g every 12. Continue ASA 81mg daily : Monitor renal function, I/O's, avoid nephrotoxins Cr:1.63 today On furosemide 80mg BID at home., Nephrology following, furosemide to 40 mg IV every 12. Aldactone per nephrology GI: On Cardiac diet. Pantoprazole for GI prophylaxis ID: Continue with abx (Vanco, piperacillin/tazobactam, fluconazole) adjust doses of abx per renal function. Follow up on blood cultures, ID following CRP:30, follow up on Procalcitonin level-3.5 Heme: Monitor CBC Endo: SSI for glycemic control On levothyroxine 50mcg daily On allopurinol 100 mg daily DVT prophylaxis- On Heparin DQ GI prophylaxis- On pantoprazole 40mg daily IV access: Left Femoral central line placed in ED 01/27-01/29. Right subclavian CVL placed 01/29
[2018-02-01] MEDS: Pantoprazole Inj 40 MG Vial IV.PUSH SCH (20:22)
[2018-02-01] MEDS: Allopurinol 300 MG Tablet PO SCH (20:22)
[2018-02-02] MEDS: Levothyroxine 50 MCG Tablet PO SCH (05:22)
[2018-02-02] MEDS: Heparin - SQ 10,000 UNITS/ML Vial SQ SCH ×3 (05:22→22:54)
[2018-02-02 07:39] LABS: Albumin 2.2 g/dL (3.4-5.0); Calcium 7.8 mg/dL (8.5-10.1); Carbon Dioxide 24.7 meq/L (21.0-32.0); Potassium 4.2 meq/L (3.5-5.1)
[2018-02-02 07:40] LABS: Phosphorus 4.3 mg/dL (2.5-4.9)
[2018-02-02] MEDS: Albumin Human 5% Inj 500 ML IV.SIG SCH ×2 (08:22→20:40)
[2018-02-02] MEDS: Polyethylene Glycol 3350 17 GM Packet PO SCH ×2 (08:25→20:40)
[2018-02-02] MEDS: Senna/Docusate Sodium 8.6/50 MG Tablet PO SCH ×2 (08:25→20:40)
[2018-02-02] MEDS: Folic Acid 1 MG Tablet PO SCH (08:25)
[2018-02-02] MEDS: Spironolactone 25 MG Tablet PO SCH (08:25)
--- NOTE | 2018-02-02 11:09 | P.PNNP ---
Subjective Interval history: patient is comfortable, edema appears to be improving. Physical Exam Vital signs: Vital Signs 02/01/18 12:00 02/01/18 13:00 02/01/18 14:00 Temperature 97.8 F Pulse Rate 71 75 78 Respiratory Rate 21 23 29 H Blood Pressure 90/62 L 94/63 L 104/73 Pulse Oximetry 92 L 91 L 89 L 02/01/18 15:00 02/01/18 16:00 02/01/18 17:00 Temperature 97.6 F Pulse Rate 75 77 72 Respiratory Rate 28 H 17 21 Blood Pressure 92/63 L 90/60 L 93/60 L Pulse Oximetry 89 L 88 L 89 L 02/01/18 18:00 02/01/18 18:30 02/01/18 19:00 Temperature Pulse Rate 76 75 72 Respiratory Rate 19 22 53 H Blood Pressure 97/61 L 105/63 103/68 Pulse Oximetry 90 L 90 L 90 L 02/01/18 19:30 02/01/18 19:56 02/01/18 20:00 Temperature 97.4 F L Pulse Rate 74 73 Respiratory Rate 31 H 21 Blood Pressure 100/62 101/64 Pulse Oximetry 91 L 92 L 91 L 02/01/18 20:30 02/01/18 21:00 02/01/18 21:30 Temperature Pulse Rate 87 74 69 Respiratory Rate 26 H 18 19 Blood Pressure 107/67 92/54 L 88/56 L Pulse Oximetry 90 L 86 L 89 L 02/01/18 22:00 02/01/18 22:30 02/01/18 23:00 Temperature Pulse Rate 71 73 68 Respiratory Rate 22 25 H 26 H Blood Pressure 91/58 L 95/57 L 88/51 L Pulse Oximetry 88 L 91 L 91 L 02/01/18 23:30 02/01/18 23:52 02/02/18 00:00 Temperature 96.2 F L Pulse Rate 74 68 65 Respiratory Rate 19 17 22 Blood Pressure 89/58 L 100/60 Pulse Oximetry 85 L 97 02/02/18 00:31 02/02/18 01:00 02/02/18 01:30 Temperature Pulse Rate 86 70 76 Respiratory Rate 29 H 19 33 H Blood Pressure 117/67 97/64 L 89/58 L Pulse Oximetry 69 L 94 L 92 L 02/02/18 02:00 02/02/18 02:30 02/02/18 03:00 Temperature Pulse Rate 74 75 75 Respiratory Rate 30 H 23 27 H Blood Pressure 95/60 L 95/63 L 98/65 L Pulse Oximetry 93 L 91 L 91 L 02/02/18 03:30 02/02/18 04:00 02/02/18 04:30 Temperature 97.5 F L Pulse Rate 75 74 75 Respiratory Rate 23 22 25 H Blood Pressure 97/60 L 96/60 L 95/61 L Pulse Oximetry 92 L 92 L 92 L 02/02/18 05:00 02/02/18 05:30 02/02/18 06:00 Temperature Pulse Rate 68 73 73 Respiratory Rate 31 H 22 36 H Blood Pressure 94/61 L 96/66 L 97/59 L Pulse Oximetry 91 L 93 L 93 L 02/02/18 06:30 02/02/18 07:00 02/02/18 07:26 Temperature Pulse Rate 89 73 74 Respiratory Rate 33 H 24 30 H Blood Pressure 83/61 L 91/59 L 94/66 L Pulse Oximetry 88 L 92 L 94 L 02/02/18 07:30 02/02/18 07:47 02/02/18 08:00 Temperature 97.6 F Pulse Rate 71 71 Respiratory Rate 28 H 17 Blood Pressure 100/60 101/61 Pulse Oximetry 91 L 92 L 92 L 02/02/18 08:30 02/02/18 09:00 02/02/18 10:00 Temperature Pulse Rate 71 76 77 Respiratory Rate 18 18 30 H Blood Pressure 105/58 L 101/74 94/66 L Pulse Oximetry 93 L 94 L 90 L Intake & Output 02/01/18 02/02/18 02/02/18 18:59 06:59 18:59 Intake Total 1040 / 1040 980 / 980 Output Total 550 / 550 390 / 390 Balance 490 / 490 590 / 590 Weight 106 kg Intake: IV 800 / 800 500 / 500 Alburx 5% Inj 500 ML @ 250 mls/ 500 / 500 500 / 500 hr IV.SIG Q12H [facility] Rx#:[id number] Zyvox 600 mg Premix 300 ML @ 300 / 300 300 mls/hr IV.SIG Q12H [facility] Rx#: [id number] Oral 240 / 240 480 / 480 Output: Urine 550 / 550 390 / 390 Stool 0 / 0 Urine/Stool Mix 0 / 0 Other: # Voids 2 # Incontinent Voids 0 Date of Last Bowel Movement 02/01/18 02/01/18 02/01/18 # Bowel Movements 1 1 # Incontinent Bowel Movements 0 Narrative: GENERAL: Sitting up in bed. Appears comfortable. SKIN: Warm and dry. HEAD: Normocephalic. EYES: No scleral icterus. No injection or drainage. NECK: Supple, trachea midline. positive JVD CARDIOVASCULAR: Regular rate and rhythm without murmurs, gallops, or rubs. RESPIRATORY: Breath sounds equal bilaterally. No accessory muscle use. GASTROINTESTINAL: Abdomen soft, non-tender, nondistended. MUSCULOSKELETAL: No cyanosis. +2 bilateral lower extremity edema Assessment and Plan - Assessment (1) Acute worsening of stage 3 chronic kidney disease Code(s): N18.3 - Chronic kidney disease, stage 3 (moderate) Status: Acute Plan: Renal function was stable, improved. Non oliguric. Fluid retention is present. Continue diuretic. Change Lasix to PO, added Spironolactone carefully. Avoid nephrotoxic agents. (2) Sepsis Code(s): A41.9 - Sepsis, unspecified organism Status: Acute Qualifiers: Sepsis type: sepsis due to unspecified organism Qualified Code(s): A41.9 - Sepsis, unspecified organism (3) Cellulitis of leg, right Code(s): L03.115 - Cellulitis of right lower limb Status: Acute Plan: Patient is now on Zyvox and Diflucan. (4) Congestive heart failure Code(s): I50.9 - Heart failure, unspecified Status: Acute Qualifiers: Heart failure type: unspecified Heart failure chronicity: chronic Qualified Code(s): I50.9 - Heart failure, unspecified Plan: continue diuretic.
--- NOTE | 2018-02-02 12:41 | ECHRPT ---
Indication: SHORTNESS OF BREATH CONCLUSIONS Normal left ventricular size. Wall thickness is normal. The left ventricular systolic function is low normal with an estimated ejection fraction in the rang e of 50- 55%. Flattened septum throughout the cardiac cycle suggesting right ventricular pressure overload. The right ventricle was not well visualized. The right ventricle is probably moderately dilated wi th reduced systolic function. The right atrial size is mildly dilated. There is mild tricuspid valve regurgitation. The estimated pulmonary arterial pressure is 53 mmHg. BP: / HR: Rhythm: Sinus MEASUREMENTS (Male / Female) Normal Values Technical Quality:Good 2D ECHO LVOT Diameter 2.3 cm LV Ejection Fraction MOD 4C 50.0 % LV Ejection Fraction 4C AL 51.8 % DOPPLER TV Peak Velocity 329.0 cm/s TR Peak Velocity 330.0 cm/s TR Peak Gradient 43.6 mmHg Right Atrial Pressure 10.0 mmHg Pulmonary Artery Systolic Pressu 53.6 mmHg Right Ventricular Systolic Press 53.6 mmHg PV Peak Velocity 110.0 cm/s PV Peak Gradient 4.8 mmHg FINDINGS LEFT VENTRICLE Normal left ventricular size. Wall thickness is normal. The left ventricular systolic function is low normal with an estimated ejection fraction in the rang e of 50- 55%. Flattened septum throughout the cardiac cycle suggesting right ventricular pressure overload. RIGHT VENTRICLE The right ventricle was not well visualized. The right ventricle is probably moderately dilated wi th reduced systolic function. LEFT ATRIUM The left atrial size is normal. RIGHT ATRIUM The right atrial size is mildly dilated. ATRIAL SEPTUM Normal atrial septal thickness without atrial level shunting by limited color doppler interrogation. AORTA The aortic root and proximal ascending aorta are normal in size on limited imaging. MITRAL VALVE Structurally normal mitral valve. No mitral valve stenosis or regurgitation. AORTIC VALVE Trileaflet aortic valve. No aortic valve stenosis or regurgitation. TRICUSPID VALVE Structurally normal tricuspid valve. There is mild tricuspid valve regurgitation. The estimated pulmonary arterial pressure is 53 mmHg. PULMONARY VALVE No pulmonary valve regurgitation or stenosis. VESSELS The inferior vena cava is normal in size. PERICARDIUM No pericardial effusion. Roly Carnes MD (Electronically Signed) Final Date:02 February 2018 12:41
[2018-02-02] MEDS: Fluconazole 100 MG Tablet PO SCH (15:09)
--- NOTE | 2018-02-02 15:16 | P.PNPL ---
Subjective Interval history: 72 YOWM with COPD, Diastolic CHF On 6LNC breathing better no CP Appetite poor family at BS Physical Exam Vital signs: Vital Signs 02/01/18 16:00 02/01/18 17:00 02/01/18 18:00 Temperature 97.6 F Pulse Rate 77 72 76 Respiratory Rate 17 21 19 Blood Pressure 90/60 L 93/60 L 97/61 L Pulse Oximetry 88 L 89 L 90 L 02/01/18 18:30 02/01/18 19:00 02/01/18 19:30 Temperature Pulse Rate 75 72 74 Respiratory Rate 22 53 H 31 H Blood Pressure 105/63 103/68 100/62 Pulse Oximetry 90 L 90 L 91 L 02/01/18 19:56 02/01/18 20:00 02/01/18 20:30 Temperature 97.4 F L Pulse Rate 73 87 Respiratory Rate 21 26 H Blood Pressure 101/64 107/67 Pulse Oximetry 92 L 91 L 90 L 02/01/18 21:00 02/01/18 21:30 02/01/18 22:00 Temperature Pulse Rate 74 69 71 Respiratory Rate 18 19 22 Blood Pressure 92/54 L 88/56 L 91/58 L Pulse Oximetry 86 L 89 L 88 L 02/01/18 22:30 02/01/18 23:00 02/01/18 23:30 Temperature Pulse Rate 73 68 74 Respiratory Rate 25 H 26 H 19 Blood Pressure 95/57 L 88/51 L 89/58 L Pulse Oximetry 91 L 91 L 85 L 02/01/18 23:52 02/02/18 00:00 02/02/18 00:31 Temperature 96.2 F L Pulse Rate 68 65 86 Respiratory Rate 17 22 29 H Blood Pressure 100/60 117/67 Pulse Oximetry 97 69 L 02/02/18 01:00 02/02/18 01:30 02/02/18 02:00 Temperature Pulse Rate 70 76 74 Respiratory Rate 19 33 H 30 H Blood Pressure 97/64 L 89/58 L 95/60 L Pulse Oximetry 94 L 92 L 93 L 02/02/18 02:30 02/02/18 03:00 02/02/18 03:30 Temperature Pulse Rate 75 75 75 Respiratory Rate 23 27 H 23 Blood Pressure 95/63 L 98/65 L 97/60 L Pulse Oximetry 91 L 91 L 92 L 02/02/18 04:00 02/02/18 04:30 02/02/18 05:00 Temperature 97.5 F L Pulse Rate 74 75 68 Respiratory Rate 22 25 H 31 H Blood Pressure 96/60 L 95/61 L 94/61 L Pulse Oximetry 92 L 92 L 91 L 02/02/18 05:30 02/02/18 06:00 02/02/18 06:30 Temperature Pulse Rate 73 73 89 Respiratory Rate 22 36 H 33 H Blood Pressure 96/66 L 97/59 L 83/61 L Pulse Oximetry 93 L 93 L 88 L 02/02/18 07:00 02/02/18 07:26 02/02/18 07:30 Temperature Pulse Rate 73 74 71 Respiratory Rate 24 30 H 28 H Blood Pressure 91/59 L 94/66 L 100/60 Pulse Oximetry 92 L 94 L 91 L 02/02/18 07:47 02/02/18 08:00 02/02/18 08:30 Temperature 97.6 F Pulse Rate 71 71 Respiratory Rate 17 18 Blood Pressure 101/61 105/58 L Pulse Oximetry 92 L 92 L 93 L 02/02/18 09:00 02/02/18 10:00 02/02/18 11:00 Temperature Pulse Rate 76 77 66 Respiratory Rate 18 30 H 21 Blood Pressure 101/74 94/66 L 96/65 L Pulse Oximetry 94 L 90 L 91 L 02/02/18 11:30 02/02/18 12:00 02/02/18 13:00 Temperature 97.8 F Pulse Rate 70 67 71 Respiratory Rate 25 H 17 26 H Blood Pressure 97/64 L 96/65 L 93/71 L Pulse Oximetry 92 L 92 L 94 L 02/02/18 14:00 02/02/18 15:00 Temperature Pulse Rate 69 70 Respiratory Rate 25 H 19 Blood Pressure 98/57 L 88/66 L Pulse Oximetry 92 L 92 L Intake & Output 02/01/18 02/02/18 02/02/18 18:59 06:59 18:59 Intake Total 1040 / 1040 1280 / 1280 Output Total 550 / 550 390 / 390 Balance 490 / 490 890 / 890 Weight 106 kg Intake: IV 800 / 800 800 / 800 Alburx 5% Inj 500 ML @ 250 mls/ 500 / 500 500 / 500 hr IV.SIG Q12H [facility] Rx#:[id number] Zyvox 600 mg Premix 300 ML @ 300 / 300 300 / 300 300 mls/hr IV.SIG Q12H [facility]AYLIN Rx#: [id number] Oral 240 / 240 480 / 480 Output: Urine 550 / 550 390 / 390 Stool 0 / 0 Urine/Stool Mix 0 / 0 Other: # Voids 2 # Incontinent Voids 0 Date of Last Bowel Movement 02/01/18 02/01/18 02/01/18 # Bowel Movements 1 1 # Incontinent Bowel Movements 0 GENERAL: Elderly Wm, Mild sob SKIN: Warm and dry. HEAD: Normocephalic. EYES: No scleral icterus. No injection or drainage. NECK: Supple, trachea midline. No JVD or lymphadenopathy. CARDIOVASCULAR: Regular rate and rhythm without murmurs, gallops, or rubs. RESPIRATORY: Breath sounds equal bilaterally. No accessory muscle use. GASTROINTESTINAL: Abdomen soft, non-tender, nondistended. MUSCULOSKELETAL: No cyanosis, or edema. BACK: Nontender without obvious deformity. No CVA tenderness. Assessment and Plan - Plan IMPRESSION: 1. Chronic obstructive pulmonary disease. 2. Diastolic congestive heart failure. 3. Symptoms suggestive of sleep apnea. 4. Pulmonary hypertension, which is multifactorial including his heart problem and COPD and sleep apnea. 5. Chronic kidney disease. PLAN: Supplement 02 Keep sat >90% Aerosol nebs Diurease Monitor Yunior Conroy covering for me
--- NOTE | 2018-02-02 16:53 | P.PNIM ---
Subjective Interval history: Patient says he is feeling all right. Reports shortness of breath stable from yesterday. Denies any chest pain. Physical Exam Vital signs: Vital Signs 02/01/18 17:00 02/01/18 18:00 02/01/18 18:30 Temperature Pulse Rate 72 76 75 Respiratory Rate 21 19 22 Blood Pressure 93/60 L 97/61 L 105/63 Pulse Oximetry 89 L 90 L 90 L 02/01/18 19:00 02/01/18 19:30 02/01/18 19:56 Temperature Pulse Rate 72 74 Respiratory Rate 53 H 31 H Blood Pressure 103/68 100/62 Pulse Oximetry 90 L 91 L 92 L 02/01/18 20:00 02/01/18 20:30 02/01/18 21:00 Temperature 97.4 F L Pulse Rate 73 87 74 Respiratory Rate 21 26 H 18 Blood Pressure 101/64 107/67 92/54 L Pulse Oximetry 91 L 90 L 86 L 02/01/18 21:30 02/01/18 22:00 02/01/18 22:30 Temperature Pulse Rate 69 71 73 Respiratory Rate 19 22 25 H Blood Pressure 88/56 L 91/58 L 95/57 L Pulse Oximetry 89 L 88 L 91 L 02/01/18 23:00 02/01/18 23:30 02/01/18 23:52 Temperature Pulse Rate 68 74 68 Respiratory Rate 26 H 19 17 Blood Pressure 88/51 L 89/58 L Pulse Oximetry 91 L 85 L 02/02/18 00:00 02/02/18 00:31 02/02/18 01:00 Temperature 96.2 F L Pulse Rate 65 86 70 Respiratory Rate 22 29 H 19 Blood Pressure 100/60 117/67 97/64 L Pulse Oximetry 97 69 L 94 L 02/02/18 01:30 02/02/18 02:00 02/02/18 02:30 Temperature Pulse Rate 76 74 75 Respiratory Rate 33 H 30 H 23 Blood Pressure 89/58 L 95/60 L 95/63 L Pulse Oximetry 92 L 93 L 91 L 02/02/18 03:00 02/02/18 03:30 02/02/18 04:00 Temperature 97.5 F L Pulse Rate 75 75 74 Respiratory Rate 27 H 23 22 Blood Pressure 98/65 L 97/60 L 96/60 L Pulse Oximetry 91 L 92 L 92 L 02/02/18 04:30 02/02/18 05:00 02/02/18 05:30 Temperature Pulse Rate 75 68 73 Respiratory Rate 25 H 31 H 22 Blood Pressure 95/61 L 94/61 L 96/66 L Pulse Oximetry 92 L 91 L 93 L 02/02/18 06:00 02/02/18 06:30 02/02/18 07:00 Temperature Pulse Rate 73 89 73 Respiratory Rate 36 H 33 H 24 Blood Pressure 97/59 L 83/61 L 91/59 L Pulse Oximetry 93 L 88 L 92 L 02/02/18 07:26 02/02/18 07:30 02/02/18 07:47 Temperature Pulse Rate 74 71 Respiratory Rate 30 H 28 H Blood Pressure 94/66 L 100/60 Pulse Oximetry 94 L 91 L 92 L 02/02/18 08:00 02/02/18 08:30 02/02/18 09:00 Temperature 97.6 F Pulse Rate 71 71 76 Respiratory Rate 17 18 18 Blood Pressure 101/61 105/58 L 101/74 Pulse Oximetry 92 L 93 L 94 L 02/02/18 10:00 02/02/18 11:00 02/02/18 11:30 Temperature Pulse Rate 77 66 70 Respiratory Rate 30 H 21 25 H Blood Pressure 94/66 L 96/65 L 97/64 L Pulse Oximetry 90 L 91 L 92 L 02/02/18 12:00 02/02/18 13:00 02/02/18 14:00 Temperature 97.8 F Pulse Rate 67 71 69 Respiratory Rate 17 26 H 25 H Blood Pressure 96/65 L 93/71 L 98/57 L Pulse Oximetry 92 L 94 L 92 L 02/02/18 15:00 Temperature Pulse Rate 70 Respiratory Rate 19 Blood Pressure 88/66 L Pulse Oximetry 92 L Intake & Output 02/01/18 02/02/18 02/02/18 18:59 06:59 18:59 Intake Total 1040 / 1040 1280 / 1280 Output Total 550 / 550 390 / 390 Balance 490 / 490 890 / 890 Weight 106 kg Intake: IV 800 / 800 800 / 800 Alburx 5% Inj 500 ML @ 250 mls/ 500 / 500 500 / 500 hr IV.SIG Q12H [facility] Rx#:[id number] Zyvox 600 mg Premix 300 ML @ 300 / 300 300 / 300 300 mls/hr IV.SIG Q12H [facility] Rx#: [id number] Oral 240 / 240 480 / 480 Output: Urine 550 / 550 390 / 390 Stool 0 / 0 Urine/Stool Mix 0 / 0 Other: # Voids 2 # Incontinent Voids 0 Date of Last Bowel Movement 02/01/18 02/01/18 02/01/18 # Bowel Movements 1 1 # Incontinent Bowel Movements 0 Narrative: GENERAL: Sitting up in bed. Appears comfortable. Exam unchanged. SKIN: Warm and dry. HEAD: Normocephalic. EYES: No scleral icterus. No injection or drainage. NECK: Supple, trachea midline. positive JVD CARDIOVASCULAR: Regular rate and rhythm without murmurs, gallops, or rubs. RESPIRATORY: Breath sounds equal bilaterally. No accessory muscle use. GASTROINTESTINAL: Abdomen soft, non-tender, nondistended. MUSCULOSKELETAL: No cyanosis. +2 bilateral lower extremity edema Results - Labs CBC & Chem 7: 01/31/18 04:30 02/02/18 05:30 Laboratory Results - last 24 hr 02/01/18 02/02/18 02/02/18 20:15 05:30 08:22 Sodium 132 L Potassium 4.2 Chloride 98 Carbon Dioxide 24.7 Anion Gap 9 BUN 45 H Creatinine 1.75 H Estimated GFR 39 L POC Glucose 110 91 Random Glucose 81 Calcium 7.8 L Phosphorus 4.3 Albumin 2.2 L 02/02/18 02/02/18 11:31 16:21 Sodium Potassium Chloride Carbon Dioxide Anion Gap BUN Creatinine Estimated GFR POC Glucose 102 88 Random Glucose Calcium Phosphorus Albumin Assessment and Plan - Plan = 02/02/18. //Hypotension. //COPD exacerbation. //Severe pulmonary hypertension on echocardiogram. = Reviewed echocardiogram which shows estimated pulmonary pressures in the 50s. We will continue to try diuresis in spite of low blood pressures. Pulmonary following. Patient likely has sleep apnea. Appreciate pulmonary assistance. //Right lower extremity cellulitis /Worsened by venous stasis cellulitis secondary to pulmonary hypertension = Continue on broad-spectrum antibiotics for cellulitis. Assessment: 72yM with Diastolic Congestive Heart Failure exacerbation with associated acute respiratory distress and acute hypoxemia, with severe RLE cellulitis. Bedside echo would suggest he does not need additional intravascular fluid, clinically improving. Currently weaned off Levophed continue forced diuresis creatinine is improving //Septic shock //Acute Diastolic Congestive Heart Failure Exacerbation //Right lower extremity cellulitis //Hx Atrial fibrillation //Acute Kidney injury superimposed on Chronic Kidney Disease Stage V //Acute on chronic respiratory insufficiency -3 L nasal cannula at home //Severe acute protein calorie malnutrition //History of essential hypertension //Hypothyroidism //History of gout //History of severe pulmonary hypertension Plan Neuro:Awake and alert. Avoid long-acting sedation Pulm: Wean down oxygen as [place] keep sats >92% Bronchodilators with albuterol/ipratropium every 6 hours with albuterol aerosols every 2 hours as needed dyspnea CV: Off norepinephrine keep MAP>65mmHg. Start Midrin 5 mg 3 times daily. Holding diltiazem 120 mg daily/home medication. Patient systolic blood pressure runs 90-100 home 07/11 echocardiogram -The left ventricular systolic function is normal with an estimated ejection fraction in the range of 55-60%. The right ventricle is moderately dilated. The right ventricular systolic function is severely decreased. The RA size is moderately dilated. Mild-to- moderate mitral valve regurgitation. There is trace tricuspid valve regurgitation. The estimated pulmonary arterial pressure is 62.4 mmHg. There is estimated [id number] pulmonary hypertension present IV albumin 25 g every 12. Continue ASA 81mg daily : Monitor renal function, I/O's, avoid nephrotoxins Cr:1.63 today On furosemide 80mg BID at home., Nephrology following, furosemide to 40 mg IV every 12. Aldactone per nephrology GI: On Cardiac diet. Pantoprazole for GI prophylaxis ID: Continue with abx (Vanco, piperacillin/tazobactam, fluconazole) adjust doses of abx per renal function. Follow up on blood cultures, ID following CRP:30, follow up on Procalcitonin level-3.5 Heme: Monitor CBC Endo: SSI for glycemic control On levothyroxine 50mcg daily On allopurinol 100 mg daily DVT prophylaxis- On Heparin DQ GI prophylaxis- On pantoprazole 40mg daily IV access: Left Femoral central line placed in ED 01/27-01/29. Right subclavian CVL placed 01/29 Discharge Planning: Likely rehab when stable.
[2018-02-02] MEDS: Furosemide 20 MG Tablet PO SCH (17:12)
[2018-02-02] MEDS: Allopurinol 300 MG Tablet PO SCH (20:40)
[2018-02-02] MEDS: Pantoprazole Inj 40 MG Vial IV.PUSH SCH (20:40)
[2018-02-03] MEDS: Heparin - SQ 10,000 UNITS/ML Vial SQ SCH ×3 (05:05→21:50)
[2018-02-03] MEDS: Levothyroxine 50 MCG Tablet PO SCH (05:05)
[2018-02-03 05:52] LABS: Baso % (Auto) 0.3 % (0.0-2.0); Eos # (Auto) 0.3 th/mm3 (0.0-0.4); Eos % (Auto) 4.8 % (0.0-4.0); Hematocrit 37.2 % (39.0-51.0); Lymph # (Auto) 0.3 th/mm3 (1.0-4.8); Lymph % (Auto) 4.4 % (9.0-44.0); Mean Corpuscular HGB Conc 32.4 % (32.0-36.0); Mean Corpuscular Hemoglobin 30.1 pg (27.0-34.0); Mean Platelet Volume 8.3 fL (7.0-11.0); Mono # (Auto) 0.2 th/mm3 (0.0-0.9); Mono % (Auto) 3.5 % (0.0-8.0); Neut # (Auto) 6.2 th/mm3 (1.8-7.7); Platelet Count 293 th/mm3 (150-450); Red Cell Distribution Width 17.9 % (11.6-17.2); White Blood Count 7.1 th/mm3 (4.0-11.0)
[2018-02-03 06:12] LABS: Albumin 2.3 g/dL (3.4-5.0); Calcium 7.7 mg/dL (8.5-10.1); Carbon Dioxide 26.4 meq/L (21.0-32.0); Magnesium 2.5 mg/dL (1.5-2.5); Potassium 4.5 meq/L (3.5-5.1)
[2018-02-03] MEDS: Spironolactone 25 MG Tablet PO SCH (08:48)
[2018-02-03] MEDS: Folic Acid 1 MG Tablet PO SCH (08:48)
[2018-02-03] MEDS: Albumin Human 5% Inj 500 ML IV.SIG SCH (08:49)
[2018-02-03] MEDS: Senna/Docusate Sodium 8.6/50 MG Tablet PO SCH ×2 (08:50→20:28)
[2018-02-03] MEDS: Polyethylene Glycol 3350 17 GM Packet PO SCH ×2 (08:50→20:29)
[2018-02-03] MEDS: Furosemide 20 MG Tablet PO SCH ×2 (08:53→17:37)
[2018-02-03] MEDS: Ferrous Sulfate 325 MG Tablet PO SCH (08:53)
--- NOTE | 2018-02-03 11:59 | P.PNID ---
Subjective Remarks: is a 72-year-old male with past medical history significant for diastolic heart failure, recurrent right lower extremity swelling, history of trauma to the right lower extremity with a history of hematoma in the past. Patient reports that approximately a week to 10 days prior to admission he took a trip to [place] when he was driving the car. While he was at [place] he walked around at the [facility] locally which usually does not do. He reports that normally he would take a wheelchair to navigate within [facility]. He thinks a day after this trip to the [facility] his right lower extremity started swelling significantly. He goes on to report that he stays there for about 5 days and thereafter took another road trip from [place] to [facility] where he lives permanently. With this background patient presents to [facility] with this history of progressive right lower extremity swelling as well as progressive shortness of breath over the last 1 day. Patient reports that his right lower extremity has been increasingly red, warm and swollen despite taking the additional diuretics prescribed by his primary care physician. He reports this redness now is extended into his polyuria and also there is discomfort in his groin. In the emergency department he had a severely elevated BNP at 1708, creatinine of 2.6, potassium of 5.1. Patient also has history of persistently low sodium levels on prior visits. He endorses shortness of breath, dyspnea on exertion, lower extremity edema as well as orthopnea. He denies any fevers chills, sputum production or cough. His SPO2 on admission was 88% on 4 L oxygen by nasal cannula. Patient has significant hypovolemia at a level of 1.2. His WBC count on admission was 11.8 with 94% neutrophil predominance but no bandemia. His ESR was significantly elevated at 30. While in the ER patient was persistently hypotensive and required central venous catheter insertion as well as vasopressors. Patient was in the ICU at the time of my evaluation. He was alert and oriented 3 and is able to provide the history. Urine output is good. He currently is on vasopressors although requirement has gone down since admission. He is on nasal cannula. Infectious diseases consulted for evaluation and management of Right lower extremity cellulitis possible sepsis and septic shock. Overnight events reviewed. Patient reports low blood pressure chronic over last 6-8 months. Pressors discontinued. No fevers No rash No diarrhea Antibiotics: Zosyn IV Vanco IV Lines: Lines ok Past Medical History: reviewed Allergies/Adverse Reactions: Allergies cefuroxime Allergy (Intermediate, Verified 01/27/18 18:59) hives ciprofloxacin Allergy (Intermediate, Verified 01/27/18 18:59) HIVES Objective Vital Signs 02/02/18 12:00 02/02/18 13:00 02/02/18 14:00 Temperature 97.8 F Pulse Rate 67 71 69 Respiratory Rate 17 26 H 25 H Blood Pressure 96/65 L 93/71 L 98/57 L Pulse Oximetry 92 L 94 L 92 L 02/02/18 15:00 02/02/18 16:00 02/02/18 16:01 Temperature 98.6 F Pulse Rate 70 74 74 Respiratory Rate 19 19 19 Blood Pressure 88/66 L 104/76 104/76 Pulse Oximetry 92 L 87 L 91 L 02/02/18 16:30 02/02/18 17:00 02/02/18 18:00 Temperature Pulse Rate 68 80 74 Respiratory Rate 17 33 H 41 H Blood Pressure 100/61 102/56 L 101/57 L Pulse Oximetry 88 L 88 L 89 L 02/02/18 18:01 02/02/18 18:30 02/02/18 19:00 Temperature Pulse Rate 68 72 70 Respiratory Rate 19 24 25 H Blood Pressure 101/57 L 96/62 L 86/58 L Pulse Oximetry 91 L 89 L 91 L 02/02/18 19:31 02/02/18 20:00 02/02/18 20:30 Temperature 97.4 F L Pulse Rate 75 77 72 Respiratory Rate 17 20 16 Blood Pressure 94/69 L 94/60 L 93/59 L Pulse Oximetry 90 L 88 L 90 L 02/02/18 21:00 02/02/18 21:30 02/02/18 22:00 Temperature Pulse Rate 71 74 78 Respiratory Rate 21 21 24 Blood Pressure 94/57 L 98/58 L 90/62 L Pulse Oximetry 90 L 88 L 87 L 02/02/18 22:31 02/02/18 23:00 02/02/18 23:30 Temperature Pulse Rate 69 68 70 Respiratory Rate 22 27 H 32 H Blood Pressure 106/66 94/58 L 99/58 L Pulse Oximetry 90 L 88 L 90 L 02/03/18 00:00 02/03/18 00:30 02/03/18 01:00 Temperature 97.8 F Pulse Rate 65 66 67 Respiratory Rate 19 21 28 H Blood Pressure 92/61 L 98/63 L 90/63 L Pulse Oximetry 90 L 90 L 90 L 02/03/18 01:30 02/03/18 02:00 02/03/18 02:31 Temperature Pulse Rate 73 72 72 Respiratory Rate 18 24 27 H Blood Pressure 87/56 L 94/66 L 106/52 L Pulse Oximetry 91 L 88 L 89 L 02/03/18 03:00 02/03/18 03:01 02/03/18 03:30 Temperature Pulse Rate 78 80 70 Respiratory Rate 27 H 23 19 Blood Pressure 92/53 L 89/63 L Pulse Oximetry 88 L 86 L 90 L 02/03/18 04:00 02/03/18 04:30 02/03/18 05:00 Temperature 97.6 F Pulse Rate 70 69 80 Respiratory Rate 24 22 29 H Blood Pressure 89/62 L 94/66 L Pulse Oximetry 90 L 90 L 91 L 02/03/18 05:04 02/03/18 05:30 02/03/18 06:00 Temperature Pulse Rate 79 68 70 Respiratory Rate 34 H 18 16 Blood Pressure 106/63 87/54 L 90/58 L Pulse Oximetry 90 L 87 L 87 L 02/03/18 07:00 02/03/18 08:00 02/03/18 09:00 Temperature 97.3 F L Pulse Rate 64 65 70 Respiratory Rate 17 12 32 H Blood Pressure 93/58 L 100/67 111/61 Pulse Oximetry 87 L 90 L 90 L 02/03/18 10:00 02/03/18 11:00 Temperature Pulse Rate 79 73 Respiratory Rate 28 H 26 H Blood Pressure 94/58 L Pulse Oximetry 88 L 89 L Intake & Output 02/02/18 02/03/18 02/03/18 18:59 06:59 18:59 Intake Total 1000 / 1000 1040 / 1040 1015 / 1015 Output Total 250 / 250 420 / 420 Balance 750 / 750 620 / 620 1015 / 1015 Weight 106 kg Intake: IV 800 / 800 800 / 800 1015 / 1015 Alburx 5% Inj 500 ML @ 250 mls/ 500 / 500 500 / 500 500 / 500 hr IV.SIG Q12H [facility] Rx#:[id number] Zyvox 600 mg Premix 300 ML @ 300 / 300 300 / 300 300 mls/hr IV.SIG Q12H [facility] Rx#: [id number] Oral 200 / 200 240 / 240 Output: Urine 250 / 250 420 / 420 Other: # Voids 1 2 Date of Last Bowel Movement 02/02/18 02/03/18 # Bowel Movements 2 3 01/27/18 16:40 Blood - Peripheral Aerobic Blood Culture - Final No growth in 5 days 01/27/18 16:40 Blood - Peripheral Anaerobic Blood Culture - Final QNS - See aerobic report. 01/27/18 16:33 Blood - Peripheral Aerobic Blood Culture - Final No growth in 5 days 01/27/18 16:33 Blood - Peripheral Anaerobic Blood Culture - Final No growth in 5 days Lab - Hematology Results 02/03/18 04:30 WBC 7.1 RBC 4.00 L Hgb 12.0 L Hct 37.2 L MCV 93.0 MCH 30.1 MCHC 32.4 RDW 17.9 H Plt Count 293 D MPV 8.3 Neut % (Auto) 87.0 H Lymph % (Auto) 4.4 L Coffey % (Auto) 3.5 Eos % (Auto) 4.8 H Baso % (Auto) 0.3 Neut # (Auto) 6.2 Lymph # (Auto) 0.3 L Coffey # (Auto) 0.2 Eos # (Auto) 0.3 Baso # (Auto) 0.0 WBC Differential . Differential Comment Auto diff final Lab - Chemistry Results 02/01/18 02/01/18 02/02/18 16:00 20:15 05:30 Sodium 132 L Potassium 4.2 Chloride 98 Carbon Dioxide 24.7 Anion Gap 9 BUN 45 H Creatinine 1.75 H Estimated GFR 39 L POC Glucose 108 110 Random Glucose 81 Calcium 7.8 L Phosphorus 4.3 Magnesium Albumin 2.2 L 02/02/18 02/02/18 02/02/18 08:22 11:31 16:21 Sodium Potassium Chloride Carbon Dioxide Anion Gap BUN Creatinine Estimated GFR POC Glucose 91 102 88 Random Glucose Calcium Phosphorus Magnesium Albumin 02/02/18 02/03/18 02/03/18 20:46 04:30 11:21 Sodium 135 L Potassium 4.5 Chloride 99 Carbon Dioxide 26.4 Anion Gap 10 BUN 45 H Creatinine 1.76 H Estimated GFR 38 L POC Glucose 81 127 H Random Glucose 73 L Calcium 7.7 L Phosphorus 4.0 Magnesium 2.5 Albumin 2.3 L Imaging: ITS Impressions Venous Doppler Study 01/27/18 16:21 CONCLUSION: 1. The study is negative for lower extremity deep venous thrombosis. Abdomen/Bladder Ultrasound 01/28/18 00:00 CONCLUSION: 1. Normal-sized kidneys with thin renal cortex Femur CT 01/28/18 00:00 CONCLUSION: 1. Diffuse subcutaneous swelling is noted throughout the right thigh suggesting diffuse cellulitis. No deep soft tissue abscess is noted. 2. No fracture, dislocation, or focal bony abnormality. Lower Extremity CT 01/28/18 00:00 CONCLUSION: 1. Diffuse subcutaneous swelling of the left lower leg suggesting diffuse cellulitis. 2. Small knee joint effusion. 3. Mild degenerative changes involving the femoral-tibial and patellofemoral joints. 4. No acute fracture or dislocation of the tibia or fibula. Chest X-Ray 01/29/18 13:20 CONCLUSION: Right-sided central line which appears a properly positioned. Radiographic findings are consistent with either congestive heart failure with pulmonary edema versus congestive heart failure with superimposed multifocal pneumonia. Physical Exam: GENERAL: Well-nourished well-developed, not in acute distress SKIN: Cool and dry, no generalized rash HEAD: Atraumatic. Normocephalic. No temporal or scalp tenderness. EYES: Pupils equal round and reactive. Scleral icterus. No injection or drainage. No petechia ENT: Nothing abnormal detected NECK: Trachea midline. Supple, nontender, no meningeal signs. CARDIOVASCULAR: HS audible. RESPIRATORY: Clear to auscultation bilaterally. GASTROINTESTINAL: Abdomen soft nontender. MUSCULOSKELETAL: Right LE with significant swelling,pitting edema, induration and erythema. The erythema extends to the inner thigh and groin area. There was erythema in the groin folds. Genital exam: no tenderness. NEUROLOGICAL: Alert oriented 3. Nonfocal. Psych cooperative IV line sites ok. Assessment and Plan - Plan Shock: combined septic and cardiogenic shock Right LE cellulitis extending to inner thigh and groin Right groin cellulitis. Acute on chronic renal failure. Pulm edema, CHF. Recs: DC Zyvox DC Diflucan Continue Nystatin cream for Local application. SKY wrap BL LE Continue gentle diuresis. Elevate leg Follow cultures Follow clinical course. dw RN soila Marlow Clinically left LE cellulitis resolved. Will stop antibiotics and follow clinically. Will sign off please call back if any change in clinical condition or questions.
--- NOTE | 2018-02-03 12:42 | P.PNIM ---
Subjective Interval history: Patient says that shortness of breath is improving. Physical Exam Vital signs: Vital Signs 02/02/18 13:00 02/02/18 14:00 02/02/18 15:00 Temperature Pulse Rate 71 69 70 Respiratory Rate 26 H 25 H 19 Blood Pressure 93/71 L 98/57 L 88/66 L Pulse Oximetry 94 L 92 L 92 L 02/02/18 16:00 02/02/18 16:01 02/02/18 16:30 Temperature 98.6 F Pulse Rate 74 74 68 Respiratory Rate 19 19 17 Blood Pressure 104/76 104/76 100/61 Pulse Oximetry 87 L 91 L 88 L 02/02/18 17:00 02/02/18 18:00 02/02/18 18:01 Temperature Pulse Rate 80 74 68 Respiratory Rate 33 H 41 H 19 Blood Pressure 102/56 L 101/57 L 101/57 L Pulse Oximetry 88 L 89 L 91 L 02/02/18 18:30 02/02/18 19:00 02/02/18 19:31 Temperature Pulse Rate 72 70 75 Respiratory Rate 24 25 H 17 Blood Pressure 96/62 L 86/58 L 94/69 L Pulse Oximetry 89 L 91 L 90 L 02/02/18 20:00 02/02/18 20:30 02/02/18 21:00 Temperature 97.4 F L Pulse Rate 77 72 71 Respiratory Rate 20 16 21 Blood Pressure 94/60 L 93/59 L 94/57 L Pulse Oximetry 88 L 90 L 90 L 02/02/18 21:30 02/02/18 22:00 02/02/18 22:31 Temperature Pulse Rate 74 78 69 Respiratory Rate 21 24 22 Blood Pressure 98/58 L 90/62 L 106/66 Pulse Oximetry 88 L 87 L 90 L 02/02/18 23:00 02/02/18 23:30 02/03/18 00:00 Temperature 97.8 F Pulse Rate 68 70 65 Respiratory Rate 27 H 32 H 19 Blood Pressure 94/58 L 99/58 L 92/61 L Pulse Oximetry 88 L 90 L 90 L 02/03/18 00:30 02/03/18 01:00 02/03/18 01:30 Temperature Pulse Rate 66 67 73 Respiratory Rate 21 28 H 18 Blood Pressure 98/63 L 90/63 L 87/56 L Pulse Oximetry 90 L 90 L 91 L 02/03/18 02:00 02/03/18 02:31 02/03/18 03:00 Temperature Pulse Rate 72 72 78 Respiratory Rate 24 27 H 27 H Blood Pressure 94/66 L 106/52 L Pulse Oximetry 88 L 89 L 88 L 02/03/18 03:01 02/03/18 03:30 02/03/18 04:00 Temperature 97.6 F Pulse Rate 80 70 70 Respiratory Rate 23 19 24 Blood Pressure 92/53 L 89/63 L 89/62 L Pulse Oximetry 86 L 90 L 90 L 02/03/18 04:30 02/03/18 05:00 02/03/18 05:04 Temperature Pulse Rate 69 80 79 Respiratory Rate 22 29 H 34 H Blood Pressure 94/66 L 106/63 Pulse Oximetry 90 L 91 L 90 L 02/03/18 05:30 02/03/18 06:00 02/03/18 07:00 Temperature Pulse Rate 68 70 64 Respiratory Rate 18 16 17 Blood Pressure 87/54 L 90/58 L 93/58 L Pulse Oximetry 87 L 87 L 87 L 02/03/18 08:00 02/03/18 09:00 02/03/18 10:00 Temperature 97.3 F L Pulse Rate 65 70 79 Respiratory Rate 12 32 H 28 H Blood Pressure 100/67 111/61 94/58 L Pulse Oximetry 90 L 90 L 88 L 02/03/18 11:00 02/03/18 12:08 Temperature Pulse Rate 73 Respiratory Rate 26 H Blood Pressure Pulse Oximetry 89 L 91 L Intake & Output 02/02/18 02/03/18 02/03/18 18:59 06:59 18:59 Intake Total 1000 / 1000 1040 / 1040 1015 / 1015 Output Total 250 / 250 420 / 420 Balance 750 / 750 620 / 620 1015 / 1015 Weight 106 kg Intake: IV 800 / 800 800 / 800 1015 / 1015 Alburx 5% Inj 500 ML @ 250 mls/ 500 / 500 500 / 500 500 / 500 hr IV.SIG Q12H [facility] Rx#:[id number] Zyvox 600 mg Premix 300 ML @ 300 / 300 300 / 300 300 mls/hr IV.SIG Q12H [facility] Rx#: [id number] Oral 200 / 200 240 / 240 Output: Urine 250 / 250 420 / 420 Other: # Voids 1 2 Date of Last Bowel Movement 02/02/18 02/03/18 # Bowel Movements 2 3 Narrative: GENERAL: Sitting up in bed. Appears comfortable. Exam unchanged. SKIN: Warm and dry. HEAD: Normocephalic. EYES: No scleral icterus. No injection or drainage. NECK: Supple, trachea midline. positive JVD CARDIOVASCULAR: Regular rate and rhythm without murmurs, gallops, or rubs. RESPIRATORY: Breath sounds equal bilaterally. No accessory muscle use. GASTROINTESTINAL: Abdomen soft, non-tender, nondistended. MUSCULOSKELETAL: No cyanosis. Marked scrotal edema without erythema as before. +2 bilateral lower extremity edema Results - Labs CBC & Chem 7: 02/03/18 04:30 02/03/18 04:30 Laboratory Results - last 24 hr 02/02/18 02/02/18 02/03/18 16:21 20:46 04:30 WBC 7.1 RBC 4.00 L Hgb 12.0 L Hct 37.2 L MCV 93.0 MCH 30.1 MCHC 32.4 RDW 17.9 H Plt Count 293 D MPV 8.3 Neut % (Auto) 87.0 H Lymph % (Auto) 4.4 L [place] % (Auto) 3.5 Eos % (Auto) 4.8 H Baso % (Auto) 0.3 Neut # (Auto) 6.2 Lymph # (Auto) 0.3 L [place] # (Auto) 0.2 Eos # (Auto) 0.3 Baso # (Auto) 0.0 WBC Differential . Differential Comment Auto diff final Sodium Potassium Chloride Carbon Dioxide Anion Gap BUN Creatinine Estimated GFR POC Glucose 88 81 Random Glucose Calcium Phosphorus Magnesium Albumin 02/03/18 02/03/18 04:30 11:21 WBC RBC Hgb Hct MCV MCH MCHC RDW Plt Count MPV Neut % (Auto) Lymph % (Auto) [place] % (Auto) Eos % (Auto) Baso % (Auto) Neut # (Auto) Lymph # (Auto) [place] # (Auto) Eos # (Auto) Baso # (Auto) WBC Differential Differential Comment Sodium 135 L Potassium 4.5 Chloride 99 Carbon Dioxide 26.4 Anion Gap 10 BUN 45 H Creatinine 1.76 H Estimated GFR 38 L POC Glucose 127 H Random Glucose 73 L Calcium 7.7 L Phosphorus 4.0 Magnesium 2.5 Albumin 2.3 L Assessment and Plan - Plan = 02/03/18. //Hypotension. //COPD exacerbation. //Severe pulmonary hypertension on echocardiogram. = Pulmonary following. Systolic blood pressures a little bit improved today with systolics in the 100s. Continue gentle diuresis. Appreciate pulmonary assistance. //Right lower extremity cellulitis /Worsened by venous stasis cellulitis secondary to pulmonary hypertension Appears resolved. Monitor off of antibiotics. Assessment: 72yM with Diastolic Congestive Heart Failure exacerbation with associated acute respiratory distress and acute hypoxemia, with severe RLE cellulitis. Bedside echo would suggest he does not need additional intravascular fluid, clinically improving. Currently weaned off Levophed continue forced diuresis creatinine is improving //Septic shock //Acute Diastolic Congestive Heart Failure Exacerbation //Right lower extremity cellulitis //Hx Atrial fibrillation //Acute Kidney injury superimposed on Chronic Kidney Disease Stage V //Acute on chronic respiratory insufficiency -3 L nasal cannula at home //Severe acute protein calorie malnutrition //History of essential hypertension //Hypothyroidism //History of gout //History of severe pulmonary hypertension Plan Neuro:Awake and alert. Avoid long-acting sedation Pulm: Wean down oxygen as [place] keep sats >92% Bronchodilators with albuterol/ipratropium every 6 hours with albuterol aerosols every 2 hours as needed dyspnea CV: Off norepinephrine keep MAP>65mmHg. Start Midrin 5 mg 3 times daily. Holding diltiazem 120 mg daily/home medication. Patient systolic blood pressure runs 90-100 home 07/11 echocardiogram -The left ventricular systolic function is normal with an estimated ejection fraction in the range of 55-60%. The right ventricle is moderately dilated. The right ventricular systolic function is severely decreased. The RA size is moderately dilated. Mild-to- moderate mitral valve regurgitation. There is trace tricuspid valve regurgitation. The estimated pulmonary arterial pressure is 62.4 mmHg. There is estimated [id number] pulmonary hypertension present IV albumin 25 g every 12. Continue ASA 81mg daily : Monitor renal function, I/O's, avoid nephrotoxins Cr:1.63 today On furosemide 80mg BID at home., Nephrology following, furosemide to 40 mg IV every 12. Aldactone per nephrology GI: On Cardiac diet. Pantoprazole for GI prophylaxis ID: Continue with abx (Vanco, piperacillin/tazobactam, fluconazole) adjust doses of abx per renal function. Follow up on blood cultures, ID following CRP:30, follow up on Procalcitonin level-3.5 Heme: Monitor CBC Endo: SSI for glycemic control On levothyroxine 50mcg daily On allopurinol 100 mg daily DVT prophylaxis- On Heparin DQ GI prophylaxis- On pantoprazole 40mg daily IV access: Left Femoral central line placed in ED 01/27-01/29. Right subclavian CVL placed 01/29 Discharge Planning: Likely rehab when stable.
--- NOTE | 2018-02-03 15:35 | P.PNNP ---
Subjective Interval history: Lower extremity and scrotal swelling persist, patient thinks that edema has improved. Physical Exam Vital signs: Vital Signs 02/02/18 16:00 02/02/18 16:01 02/02/18 16:30 Temperature 98.6 F Pulse Rate 74 74 68 Respiratory Rate 19 19 17 Blood Pressure 104/76 104/76 100/61 Pulse Oximetry 87 L 91 L 88 L 02/02/18 17:00 02/02/18 18:00 02/02/18 18:01 Temperature Pulse Rate 80 74 68 Respiratory Rate 33 H 41 H 19 Blood Pressure 102/56 L 101/57 L 101/57 L Pulse Oximetry 88 L 89 L 91 L 02/02/18 18:30 02/02/18 19:00 02/02/18 19:31 Temperature Pulse Rate 72 70 75 Respiratory Rate 24 25 H 17 Blood Pressure 96/62 L 86/58 L 94/69 L Pulse Oximetry 89 L 91 L 90 L 02/02/18 20:00 02/02/18 20:30 02/02/18 21:00 Temperature 97.4 F L Pulse Rate 77 72 71 Respiratory Rate 20 16 21 Blood Pressure 94/60 L 93/59 L 94/57 L Pulse Oximetry 88 L 90 L 90 L 02/02/18 21:30 02/02/18 22:00 02/02/18 22:31 Temperature Pulse Rate 74 78 69 Respiratory Rate 21 24 22 Blood Pressure 98/58 L 90/62 L 106/66 Pulse Oximetry 88 L 87 L 90 L 02/02/18 23:00 02/02/18 23:30 02/03/18 00:00 Temperature 97.8 F Pulse Rate 68 70 65 Respiratory Rate 27 H 32 H 19 Blood Pressure 94/58 L 99/58 L 92/61 L Pulse Oximetry 88 L 90 L 90 L 02/03/18 00:30 02/03/18 01:00 02/03/18 01:30 Temperature Pulse Rate 66 67 73 Respiratory Rate 21 28 H 18 Blood Pressure 98/63 L 90/63 L 87/56 L Pulse Oximetry 90 L 90 L 91 L 02/03/18 02:00 02/03/18 02:31 02/03/18 03:00 Temperature Pulse Rate 72 72 78 Respiratory Rate 24 27 H 27 H Blood Pressure 94/66 L 106/52 L Pulse Oximetry 88 L 89 L 88 L 02/03/18 03:01 02/03/18 03:30 02/03/18 04:00 Temperature 97.6 F Pulse Rate 80 70 70 Respiratory Rate 23 19 24 Blood Pressure 92/53 L 89/63 L 89/62 L Pulse Oximetry 86 L 90 L 90 L 02/03/18 04:30 02/03/18 05:00 02/03/18 05:04 Temperature Pulse Rate 69 80 79 Respiratory Rate 22 29 H 34 H Blood Pressure 94/66 L 106/63 Pulse Oximetry 90 L 91 L 90 L 02/03/18 05:30 02/03/18 06:00 02/03/18 07:00 Temperature Pulse Rate 68 70 64 Respiratory Rate 18 16 17 Blood Pressure 87/54 L 90/58 L 93/58 L Pulse Oximetry 87 L 87 L 87 L 02/03/18 08:00 02/03/18 09:00 02/03/18 10:00 Temperature 97.3 F L Pulse Rate 65 70 79 Respiratory Rate 12 32 H 28 H Blood Pressure 100/67 111/61 94/58 L Pulse Oximetry 90 L 90 L 88 L 02/03/18 11:00 02/03/18 12:00 02/03/18 12:08 Temperature 98 F Pulse Rate 73 71 Respiratory Rate 26 H 25 H Blood Pressure 119/74 Pulse Oximetry 89 L 91 L 91 L Intake & Output 02/02/18 02/03/18 02/03/18 18:59 06:59 18:59 Intake Total 1000 / 1000 1040 / 1040 1315 / 1315 Output Total 250 / 250 420 / 420 Balance 750 / 750 620 / 620 1315 / 1315 Weight 106 kg Intake: IV 800 / 800 800 / 800 1315 / 1315 Alburx 5% Inj 500 ML @ 250 mls/ 500 / 500 500 / 500 500 / 500 hr IV.SIG Q12H [facility] Rx#:[id number] Zyvox 600 mg Premix 300 ML @ 300 / 300 300 / 300 300 / 300 300 mls/hr IV.SIG Q12H [facility] Rx#: [id number] Oral 200 / 200 240 / 240 Output: Urine 250 / 250 420 / 420 Other: # Voids 1 2 Date of Last Bowel Movement 02/02/18 02/03/18 # Bowel Movements 2 3 Narrative: GENERAL: Sitting up in bed. Appears comfortable. Exam unchanged. SKIN: Warm and dry. HEAD: Normocephalic. EYES: No scleral icterus. No injection or drainage. NECK: Supple, trachea midline. positive JVD CARDIOVASCULAR: Regular rate and rhythm without murmurs, gallops, or rubs. RESPIRATORY: Breath sounds equal bilaterally. No accessory muscle use. GASTROINTESTINAL: Abdomen soft, non-tender, nondistended. MUSCULOSKELETAL: No cyanosis. Marked scrotal edema without erythema as before. +2 bilateral lower extremity edema Assessment and Plan - Assessment (1) Acute worsening of stage 3 chronic kidney disease Code(s): N18.3 - Chronic kidney disease, stage 3 (moderate) Status: Acute Plan: Renal function was stable. Non oliguric. Fluid retention is present. Continue diuretic as ordered. Avoid nephrotoxic agents. (2) Sepsis Code(s): A41.9 - Sepsis, unspecified organism Status: Acute Qualifiers: Sepsis type: sepsis due to unspecified organism Qualified Code(s): A41.9 - Sepsis, unspecified organism (3) Cellulitis of leg, right Code(s): L03.115 - Cellulitis of right lower limb Status: Acute Plan: Improved, antibiotics have been stopped. (4) Congestive heart failure Code(s): I50.9 - Heart failure, unspecified Status: Acute Qualifiers: Heart failure type: unspecified Heart failure chronicity: chronic Qualified Code(s): I50.9 - Heart failure, unspecified Plan: continue diuretic.
--- NOTE | 2018-02-03 18:02 | P.PN ---
Subjective Interval history: C/O Arm and leg swelling. On O2 3 L. Diuresing still. No chest pains. Physical Exam Vital signs: Vital Signs 02/02/18 18:00 02/02/18 18:01 02/02/18 18:30 Temperature Pulse Rate 74 68 72 Respiratory Rate 41 H 19 24 Blood Pressure 101/57 L 101/57 L 96/62 L Pulse Oximetry 89 L 91 L 89 L 02/02/18 19:00 02/02/18 19:31 02/02/18 20:00 Temperature 97.4 F L Pulse Rate 70 75 77 Respiratory Rate 25 H 17 20 Blood Pressure 86/58 L 94/69 L 94/60 L Pulse Oximetry 91 L 90 L 88 L 02/02/18 20:30 02/02/18 21:00 02/02/18 21:30 Temperature Pulse Rate 72 71 74 Respiratory Rate 16 21 21 Blood Pressure 93/59 L 94/57 L 98/58 L Pulse Oximetry 90 L 90 L 88 L 02/02/18 22:00 02/02/18 22:31 02/02/18 23:00 Temperature Pulse Rate 78 69 68 Respiratory Rate 24 22 27 H Blood Pressure 90/62 L 106/66 94/58 L Pulse Oximetry 87 L 90 L 88 L 02/02/18 23:30 02/03/18 00:00 02/03/18 00:30 Temperature 97.8 F Pulse Rate 70 65 66 Respiratory Rate 32 H 19 21 Blood Pressure 99/58 L 92/61 L 98/63 L Pulse Oximetry 90 L 90 L 90 L 02/03/18 01:00 02/03/18 01:30 02/03/18 02:00 Temperature Pulse Rate 67 73 72 Respiratory Rate 28 H 18 24 Blood Pressure 90/63 L 87/56 L 94/66 L Pulse Oximetry 90 L 91 L 88 L 02/03/18 02:31 02/03/18 03:00 02/03/18 03:01 Temperature Pulse Rate 72 78 80 Respiratory Rate 27 H 27 H 23 Blood Pressure 106/52 L 92/53 L Pulse Oximetry 89 L 88 L 86 L 02/03/18 03:30 02/03/18 04:00 02/03/18 04:30 Temperature 97.6 F Pulse Rate 70 70 69 Respiratory Rate 19 24 22 Blood Pressure 89/63 L 89/62 L 94/66 L Pulse Oximetry 90 L 90 L 90 L 02/03/18 05:00 02/03/18 05:04 02/03/18 05:30 Temperature Pulse Rate 80 79 68 Respiratory Rate 29 H 34 H 18 Blood Pressure 106/63 87/54 L Pulse Oximetry 91 L 90 L 87 L 02/03/18 06:00 02/03/18 07:00 02/03/18 08:00 Temperature 97.3 F L Pulse Rate 70 64 65 Respiratory Rate 16 17 12 Blood Pressure 90/58 L 93/58 L 100/67 Pulse Oximetry 87 L 87 L 90 L 02/03/18 09:00 02/03/18 10:00 02/03/18 11:00 Temperature Pulse Rate 70 79 73 Respiratory Rate 32 H 28 H 26 H Blood Pressure 111/61 94/58 L Pulse Oximetry 90 L 88 L 89 L 02/03/18 12:00 02/03/18 12:08 02/03/18 14:00 Temperature 98 F Pulse Rate 71 59 L Respiratory Rate 25 H Blood Pressure 119/74 Pulse Oximetry 91 L 91 L 02/03/18 16:00 Temperature 98.7 F Pulse Rate 63 Respiratory Rate 22 Blood Pressure 93/58 L Pulse Oximetry 90 L Intake & Output 02/02/18 02/03/18 02/03/18 18:59 06:59 18:59 Intake Total 1000 / 1000 1040 / 1040 1665 / 1665 Output Total 250 / 250 420 / 420 275 / 275 Balance 750 / 750 620 / 620 1390 / 1390 Weight 106 kg Intake: IV 800 / 800 800 / 800 1315 / 1315 Alburx 5% Inj 500 ML @ 250 mls/ 500 / 500 500 / 500 500 / 500 hr IV.SIG Q12H [facility] Rx#:[id number] Zyvox 600 mg Premix 300 ML @ 300 / 300 300 / 300 300 / 300 300 mls/hr IV.SIG Q12H [facility] Rx#: [id number] Oral 200 / 200 240 / 240 350 / 350 Output: Urine 250 / 250 420 / 420 275 / 275 Other: # Voids 1 2 Date of Last Bowel Movement 02/02/18 02/03/18 02/03/18 # Bowel Movements 2 3 1 Narrative: GENERAL: Sitting up in bed. no distress SKIN: Warm and dry. HEAD: Normocephalic. EYES: No scleral icterus. No injection or drainage. NECK: Supple, trachea midline. positive JVD CARDIOVASCULAR: Regular rate and rhythm without murmurs, gallops, or rubs. RESPIRATORY: Breath sounds equal bilaterally. No accessory muscle use. GASTROINTESTINAL: Abdomen soft, non-tender, nondistended. MUSCULOSKELETAL: No cyanosis. Marked scrotal edema and has left arm edema. +2 bilateral lower extremity edema Results - Labs CBC & Chem 7: 02/03/18 04:30 02/03/18 04:30 Laboratory Results - last 24 hr 02/02/18 02/03/18 02/03/18 20:46 04:30 04:30 WBC 7.1 RBC 4.00 L Hgb 12.0 L Hct 37.2 L MCV 93.0 MCH 30.1 MCHC 32.4 RDW 17.9 H Plt Count 293 D MPV 8.3 Neut % (Auto) 87.0 H Lymph % (Auto) 4.4 L [place] % (Auto) 3.5 Eos % (Auto) 4.8 H Baso % (Auto) 0.3 Neut # (Auto) 6.2 Lymph # (Auto) 0.3 L [place] # (Auto) 0.2 Eos # (Auto) 0.3 Baso # (Auto) 0.0 WBC Differential . Differential Comment Auto diff final Sodium 135 L Potassium 4.5 Chloride 99 Carbon Dioxide 26.4 Anion Gap 10 BUN 45 H Creatinine 1.76 H Estimated GFR 38 L POC Glucose 81 Random Glucose 73 L Calcium 7.7 L Phosphorus 4.0 Magnesium 2.5 Albumin 2.3 L 02/03/18 11:21 WBC RBC Hgb Hct MCV MCH MCHC RDW Plt Count MPV Neut % (Auto) Lymph % (Auto) [place] % (Auto) Eos % (Auto) Baso % (Auto) Neut # (Auto) Lymph # (Auto) [place] # (Auto) Eos # (Auto) Baso # (Auto) WBC Differential Differential Comment Sodium Potassium Chloride Carbon Dioxide Anion Gap BUN Creatinine Estimated GFR POC Glucose 127 H Random Glucose Calcium Phosphorus Magnesium Albumin Assessment and Plan - Assessment (1) Edema Code(s): R60.9 - Edema, unspecified Status: Acute (2) Sepsis Code(s): A41.9 - Sepsis, unspecified organism Status: Acute (3) Cellulitis of leg, right Code(s): L03.115 - Cellulitis of right lower limb Status: Acute (4) Congestive heart failure Code(s): I50.9 - Heart failure, unspecified Status: Acute (5) Chronic kidney disease (CKD) stage G4/A1, severely decreased glomerular filtration rate (GFR) between 15-29 mL/min/1.73 square meter and albuminuria creatinine ratio less than 30 mg/g Code(s): N18.4 - Chronic kidney disease, stage 4 (severe) Status: Acute (6) Acute worsening of stage 3 chronic kidney disease Code(s): N18.3 - Chronic kidney disease, stage 3 (moderate) Status: Acute - Plan 1. Continue O2 at 3 L and wean 2. Add Nebs qid duoneb 3. Continue heparin 5000 U S/Q q8h 4. IS q2h bedside 5. Chest Xray ,BMP in am 6. Continue diuresis lasix 40 mg BID (2) Sepsis Qualifiers: Sepsis type: sepsis due to unspecified organism Qualified Code(s): A41.9 - Sepsis, unspecified organism (4) Congestive heart failure Qualifiers: Heart failure type: unspecified Heart failure chronicity: chronic Qualified Code(s): I50.9 - Heart failure, unspecified
[2018-02-03] MEDS: Pantoprazole Inj 40 MG Vial IV.PUSH SCH (20:27)
[2018-02-03] MEDS: Allopurinol 300 MG Tablet PO SCH (20:28)
[2018-02-04] MEDS: Heparin - SQ 10,000 UNITS/ML Vial SQ SCH ×3 (05:25→21:52)
[2018-02-04] MEDS: Levothyroxine 50 MCG Tablet PO SCH (05:26)
[2018-02-04 05:36] LABS: Baso % (Auto) 0.7 % (0.0-2.0); Eos # (Auto) 0.3 th/mm3 (0.0-0.4); Eos % (Auto) 4.7 % (0.0-4.0); Hematocrit 38.1 % (39.0-51.0); Hemoglobin 12.5 gm/dL (13.0-17.0); Lymph # (Auto) 0.4 th/mm3 (1.0-4.8); Lymph % (Auto) 6.5 % (9.0-44.0); Mean Corpuscular HGB Conc 32.8 % (32.0-36.0); Mean Corpuscular Hemoglobin 30.1 pg (27.0-34.0); Mean Corpuscular Volume 91.8 fL (80.0-100.0); Mean Platelet Volume 7.8 fL (7.0-11.0); Mono # (Auto) 0.3 th/mm3 (0.0-0.9); Mono % (Auto) 4.7 % (0.0-8.0); Neut # (Auto) 5.7 th/mm3 (1.8-7.7); Neut % (Auto) 83.4 % (16.0-70.0); Platelet Count 364 th/mm3 (150-450); Red Blood Count 4.15 mil/mm3 (4.50-5.90); Red Cell Distribution Width 17.1 % (11.6-17.2); White Blood Count 6.8 th/mm3 (4.0-11.0)
[2018-02-04 06:01] LABS: Albumin 2.3 g/dL (3.4-5.0); Calcium 7.9 mg/dL (8.5-10.1); Carbon Dioxide 24.2 meq/L (21.0-32.0); Magnesium 2.2 mg/dL (1.5-2.5); Phosphorus 4.4 mg/dL (2.5-4.9); Potassium 4.5 meq/L (3.5-5.1)
[2018-02-04] MEDS: Furosemide 20 MG Tablet PO SCH ×2 (09:07→17:11)
[2018-02-04] MEDS: Folic Acid 1 MG Tablet PO SCH (09:08)
[2018-02-04] MEDS: Polyethylene Glycol 3350 17 GM Packet PO SCH ×2 (09:09→20:51)
[2018-02-04] MEDS: Spironolactone 25 MG Tablet PO SCH (09:09)
[2018-02-04] MEDS: Senna/Docusate Sodium 8.6/50 MG Tablet PO SCH ×2 (09:10→20:51)
--- NOTE | 2018-02-04 11:01 | P.PNIM ---
Subjective Interval history: Patient says he is feeling all right. He denies any chest pain or shortness of breath. Scrotal swelling, as well as bilateral peripheral edema continues. Multiple cups in the room. Discussed with nursing, patient is not on fluid restrictions. Will start fluid restrictions. Physical Exam Vital signs: Vital Signs 02/03/18 11:00 02/03/18 12:00 02/03/18 12:08 Temperature 98 F Pulse Rate 73 71 Respiratory Rate 26 H 25 H Blood Pressure 119/74 Pulse Oximetry 89 L 91 L 91 L 02/03/18 14:00 02/03/18 16:00 02/03/18 18:00 Temperature 98.7 F Pulse Rate 59 L 63 63 Respiratory Rate 22 Blood Pressure 93/58 L Pulse Oximetry 90 L 02/03/18 20:00 02/03/18 22:00 02/04/18 00:00 Temperature 97.5 F L 97.9 F Pulse Rate 57 L 59 L 60 Respiratory Rate 17 23 Blood Pressure 94/59 L 97/59 L Pulse Oximetry 92 L 93 L 02/04/18 02:00 02/04/18 04:00 02/04/18 06:00 Temperature 97.4 F L Pulse Rate 63 66 65 Respiratory Rate 16 Blood Pressure 87/58 L Pulse Oximetry 90 L 02/04/18 08:00 Temperature Pulse Rate Respiratory Rate Blood Pressure Pulse Oximetry 93 L Intake & Output 02/03/18 02/04/18 02/04/18 18:59 06:59 18:59 Intake Total 1665 / 1665 200 / 200 Output Total 275 / 275 400 / 400 Balance 1390 / 1390 -200 / -200 Weight 106.5 kg Intake: IV 1315 / 1315 Alburx 5% Inj 500 ML @ 250 mls/ 500 / 500 hr IV.SIG Q12H [facility] Rx#:[id number] Zyvox 600 mg Premix 300 ML @ 300 / 300 300 mls/hr IV.SIG Q12H [facility] Rx#: [id number] Oral 350 / 350 200 / 200 Output: Urine 275 / 275 400 / 400 Other: # Voids 2 Date of Last Bowel Movement 02/03/18 02/03/18 # Bowel Movements 1 1 Narrative: GENERAL: Sitting up in bed. no distress SKIN: Warm and dry. HEAD: Normocephalic. EYES: No scleral icterus. No injection or drainage. NECK: Supple, trachea midline. positive JVD CARDIOVASCULAR: Regular rate and rhythm without murmurs, gallops, or rubs. RESPIRATORY: Breath sounds equal bilaterally. No accessory muscle use. GASTROINTESTINAL: Abdomen soft, non-tender, nondistended. MUSCULOSKELETAL: No cyanosis. Marked scrotal edema and has left arm edema. No erythema. +2 bilateral lower extremity edema Results - Labs CBC & Chem 7: 02/04/18 05:17 02/04/18 05:17 Laboratory Results - last 24 hr 02/03/18 02/04/18 02/04/18 11:21 05:17 05:17 WBC 6.8 RBC 4.15 L Hgb 12.5 L Hct 38.1 L MCV 91.8 MCH 30.1 MCHC 32.8 RDW 17.1 Plt Count 364 MPV 7.8 Neut % (Auto) 83.4 H Lymph % (Auto) 6.5 L [place] % (Auto) 4.7 Eos % (Auto) 4.7 H Baso % (Auto) 0.7 Neut # (Auto) 5.7 Lymph # (Auto) 0.4 L [place] # (Auto) 0.3 Eos # (Auto) 0.3 Baso # (Auto) 0.0 WBC Differential . Differential Comment Auto diff final Sodium 132 L Potassium 4.5 Chloride 98 Carbon Dioxide 24.2 Anion Gap 10 BUN 47 H Creatinine 1.94 H Estimated GFR 34 L POC Glucose 127 H Random Glucose 76 Calcium 7.9 L Phosphorus 4.4 Magnesium 2.2 Albumin 2.3 L Assessment and Plan - Plan = 02/03/18. //Hypotension. //COPD exacerbation. //Diastolic CHF. //Severe pulmonary hypertension on echocardiogram. = Systolics in the 80s today. Patient is not on fluid restrictions. Will start fluid restrictions of 1200 mL daily with addition of [place] protein. Continue diuresis gently due to hypotension. Continue midodrine for hypotension. Nephrology and pulmonology following. //Right lower extremity cellulitis /Worsened by venous stasis cellulitis secondary to pulmonary hypertension Appears resolved. Monitor off of antibiotics. ID has signed off. Assessment: 72yM with Diastolic Congestive Heart Failure exacerbation with associated acute respiratory distress and acute hypoxemia, with severe RLE cellulitis. Bedside echo would suggest he does not need additional intravascular fluid, clinically improving. Currently weaned off Levophed continue forced diuresis creatinine is improving //Septic shock //Acute Diastolic Congestive Heart Failure Exacerbation //Right lower extremity cellulitis //Hx Atrial fibrillation //Acute Kidney injury superimposed on Chronic Kidney Disease Stage V //Acute on chronic respiratory insufficiency -3 L nasal cannula at home //Severe acute protein calorie malnutrition //History of essential hypertension //Hypothyroidism //History of gout //History of severe pulmonary hypertension Plan Neuro:Awake and alert. Avoid long-acting sedation Pulm: Wean down oxygen as [place] keep sats >92% Bronchodilators with albuterol/ipratropium every 6 hours with albuterol aerosols every 2 hours as needed dyspnea CV: Off norepinephrine keep MAP>65mmHg. Start Midrin 5 mg 3 times daily. Holding diltiazem 120 mg daily/home medication. Patient systolic blood pressure runs 90-100 home 07/11 echocardiogram -The left ventricular systolic function is normal with an estimated ejection fraction in the range of 55-60%. The right ventricle is moderately dilated. The right ventricular systolic function is severely decreased. The RA size is moderately dilated. Mild-to- moderate mitral valve regurgitation. There is trace tricuspid valve regurgitation. The estimated pulmonary arterial pressure is 62.4 mmHg. There is estimated [id number] pulmonary hypertension present IV albumin 25 g every 12. Continue ASA 81mg daily : Monitor renal function, I/O's, avoid nephrotoxins Cr:1.63 today On furosemide 80mg BID at home., Nephrology following, furosemide to 40 mg IV every 12. Aldactone per nephrology GI: On Cardiac diet. Pantoprazole for GI prophylaxis ID: Continue with abx (Vanco, piperacillin/tazobactam, fluconazole) adjust doses of abx per renal function. Follow up on blood cultures, ID following CRP:30, follow up on Procalcitonin level-3.5 Heme: Monitor CBC Endo: SSI for glycemic control On levothyroxine 50mcg daily On allopurinol 100 mg daily DVT prophylaxis- On Heparin DQ GI prophylaxis- On pantoprazole 40mg daily IV access: Left Femoral central line placed in ED 01/27-01/29. Right subclavian CVL placed 01/29 Discharge Planning: Likely rehab when stable.
--- NOTE | 2018-02-04 14:29 | P.PNNP ---
Subjective Interval history: Creatinine is slightly higher. Edema and scrotal swelling persist. Physical Exam Vital signs: Vital Signs 02/03/18 16:00 02/03/18 18:00 02/03/18 20:00 Temperature 98.7 F 97.5 F L Pulse Rate 63 63 57 L Respiratory Rate 22 17 Blood Pressure 93/58 L 94/59 L Pulse Oximetry 90 L 92 L 02/03/18 22:00 02/04/18 00:00 02/04/18 02:00 Temperature 97.9 F Pulse Rate 59 L 60 63 Respiratory Rate 23 Blood Pressure 97/59 L Pulse Oximetry 93 L 02/04/18 04:00 02/04/18 06:00 02/04/18 08:00 Temperature 97.4 F L 98.4 F Pulse Rate 66 65 63 Respiratory Rate 16 19 Blood Pressure 87/58 L 98/62 L Pulse Oximetry 90 L 94 L 02/04/18 10:00 Temperature Pulse Rate 69 Respiratory Rate Blood Pressure Pulse Oximetry Intake & Output 02/03/18 02/04/18 02/04/18 18:59 06:59 18:59 Intake Total 1665 / 1665 200 / 200 Output Total 275 / 275 400 / 400 Balance 1390 / 1390 -200 / -200 Weight 106.5 kg Intake: IV 1315 / 1315 Alburx 5% Inj 500 ML @ 250 mls/ 500 / 500 hr IV.SIG Q12H KAYLIN Rx#:[id number] Zyvox 600 mg Premix 300 ML @ 300 / 300 300 mls/hr IV.SIG Q12H KAYLIN Rx#: [id number] Oral 350 / 350 200 / 200 Output: Urine 275 / 275 400 / 400 Other: # Voids 2 Date of Last Bowel Movement 02/03/18 02/03/18 02/04/18 # Bowel Movements 1 1 Narrative: GENERAL: Sitting up in bed. no distress SKIN: Warm and dry. HEAD: Normocephalic. EYES: No scleral icterus. No injection or drainage. NECK: Supple, trachea midline. positive JVD CARDIOVASCULAR: Regular rate and rhythm without murmurs, gallops, or rubs. RESPIRATORY: Breath sounds equal bilaterally. No accessory muscle use. GASTROINTESTINAL: Abdomen soft, non-tender, nondistended. MUSCULOSKELETAL: 2 + edema, scrotal swelling. Assessment and Plan - Assessment (1) Acute worsening of stage 3 chronic kidney disease Code(s): N18.3 - Chronic kidney disease, stage 3 (moderate) Status: Acute Plan: Renal function is slightly worse. Non oliguric. Fluid retention is present. Increase Spironolactone to 50 mg PO daily. (2) Sepsis Code(s): A41.9 - Sepsis, unspecified organism Status: Acute Qualifiers: Sepsis type: sepsis due to unspecified organism Qualified Code(s): A41.9 - Sepsis, unspecified organism (3) Cellulitis of leg, right Code(s): L03.115 - Cellulitis of right lower limb Status: Acute Plan: Improved, antibiotics have been stopped. (4) Congestive heart failure Code(s): I50.9 - Heart failure, unspecified Status: Acute Qualifiers: Heart failure type: unspecified Heart failure chronicity: chronic Qualified Code(s): I50.9 - Heart failure, unspecified Plan: continue diuretic.
[2018-02-04] MEDS: Spironolactone 50 MG Tablet PO SCH (17:12)
--- NOTE | 2018-02-04 20:00 | P.PN ---
Subjective Interval history: Less sob. Still has edema all over. On o2 2 L. Left arm feels tight. Physical Exam Vital signs: Vital Signs 02/03/18 20:00 02/03/18 22:00 02/04/18 00:00 Temperature 97.5 F L 97.9 F Pulse Rate 57 L 59 L 60 Respiratory Rate 17 23 Blood Pressure 94/59 L 97/59 L Pulse Oximetry 92 L 93 L 02/04/18 02:00 02/04/18 04:00 02/04/18 06:00 Temperature 97.4 F L Pulse Rate 63 66 65 Respiratory Rate 16 Blood Pressure 87/58 L Pulse Oximetry 90 L 02/04/18 08:00 02/04/18 10:00 02/04/18 12:00 Temperature 98.4 F 98.1 F Pulse Rate 63 69 59 L Respiratory Rate 19 18 Blood Pressure 98/62 L 87/58 L Pulse Oximetry 94 L 93 L 02/04/18 14:00 02/04/18 16:00 Temperature 98.2 F Pulse Rate 76 65 Respiratory Rate 17 Blood Pressure 95/59 L Pulse Oximetry 90 L Intake & Output 02/04/18 02/04/18 02/05/18 06:59 18:59 06:59 Intake Total 200 / 200 Output Total 400 / 400 Balance -200 / -200 Weight 106.5 kg Intake: Oral 200 / 200 Output: Urine 400 / 400 Other: # Voids 2 Date of Last Bowel Movement 02/03/18 02/04/18 # Bowel Movements 1 Narrative: GENERAL: Elderly W/M alert SKIN: Warm and dry. HEAD: Normocephalic. EYES: No scleral icterus. No injection or drainage. NECK: Supple, trachea midline. positive JVD CARDIOVASCULAR: Regular rate and rhythm without murmurs, gallops, or rubs. RESPIRATORY: Breath sounds equal bilaterally. Occ Crackles at bases. No accessory muscle use. GASTROINTESTINAL: Abdomen soft, non-tender, nondistended. MUSCULOSKELETAL: 2 + edema, scrotal swelling. Redness of Right leg Results - Labs CBC & Chem 7: 02/04/18 05:17 02/04/18 05:17 Laboratory Results - last 24 hr 02/04/18 02/04/18 02/04/18 05:17 05:17 05:17 WBC 6.8 RBC 4.15 L Hgb 12.5 L Hct 38.1 L MCV 91.8 MCH 30.1 MCHC 32.8 RDW 17.1 Plt Count 364 MPV 7.8 Neut % (Auto) 83.4 H Lymph % (Auto) 6.5 L [place] % (Auto) 4.7 Eos % (Auto) 4.7 H Baso % (Auto) 0.7 Neut # (Auto) 5.7 Lymph # (Auto) 0.4 L [place] # (Auto) 0.3 Eos # (Auto) 0.3 Baso # (Auto) 0.0 WBC Differential . Differential Comment Auto diff final Sodium 132 L Potassium 4.5 Chloride 98 Carbon Dioxide 24.2 Anion Gap 10 BUN 47 H Creatinine 1.94 H Estimated GFR 34 L Random Glucose 76 Calcium 7.9 L Phosphorus 4.4 Magnesium 2.2 B-Natriuretic Peptide 2239 H Albumin 2.3 L Assessment and Plan - Assessment (1) Edema Code(s): R60.9 - Edema, unspecified Status: Acute (2) Sepsis Code(s): A41.9 - Sepsis, unspecified organism Status: Acute (3) Cellulitis of leg, right Code(s): L03.115 - Cellulitis of right lower limb Status: Acute (4) Congestive heart failure Code(s): I50.9 - Heart failure, unspecified Status: Acute (5) Chronic kidney disease (CKD) stage G4/A1, severely decreased glomerular filtration rate (GFR) between 15-29 mL/min/1.73 square meter and albuminuria creatinine ratio less than 30 mg/g Code(s): N18.4 - Chronic kidney disease, stage 4 (severe) Status: Acute (6) Acute worsening of stage 3 chronic kidney disease Code(s): N18.3 - Chronic kidney disease, stage 3 (moderate) Status: Acute - Plan 1. Continue O2 at 2 L and wean 2. Cont Nebs qid duoneb 3. Continue heparin 5000 U S/Q q8h 4. IS q2h bedside 5. CBC,BMP in am 6. Continue diuresis with lasix 40 mg BID (2) Sepsis Qualifiers: Sepsis type: sepsis due to unspecified organism Qualified Code(s): A41.9 - Sepsis, unspecified organism (4) Congestive heart failure Qualifiers: Heart failure type: unspecified Heart failure chronicity: chronic Qualified Code(s): I50.9 - Heart failure, unspecified
[2018-02-04] MEDS: Allopurinol 300 MG Tablet PO SCH (20:50)
[2018-02-04] MEDS: Pantoprazole Inj 40 MG Vial IV.PUSH SCH (20:50)
[2018-02-05 05:00] LABS: Baso % (Auto) 0.6 % (0.0-2.0); Eos # (Auto) 0.3 th/mm3 (0.0-0.4); Eos % (Auto) 4.1 % (0.0-4.0); Hematocrit 38.5 % (39.0-51.0); Hemoglobin 12.8 gm/dL (13.0-17.0); Lymph # (Auto) 0.4 th/mm3 (1.0-4.8); Lymph % (Auto) 6.6 % (9.0-44.0); Mean Corpuscular HGB Conc 33.2 % (32.0-36.0); Mean Corpuscular Hemoglobin 30.3 pg (27.0-34.0); Mean Corpuscular Volume 91.3 fL (80.0-100.0); Mean Platelet Volume 7.7 fL (7.0-11.0); Mono # (Auto) 0.3 th/mm3 (0.0-0.9); Mono % (Auto) 5.1 % (0.0-8.0); Neut # (Auto) 5.5 th/mm3 (1.8-7.7); Neut % (Auto) 83.6 % (16.0-70.0); Platelet Count 428 th/mm3 (150-450); Red Blood Count 4.22 mil/mm3 (4.50-5.90); Red Cell Distribution Width 17.7 % (11.6-17.2); White Blood Count 6.6 th/mm3 (4.0-11.0)
[2018-02-05 05:29] LABS: Albumin 2.1 g/dL (3.4-5.0); Calcium 8.1 mg/dL (8.5-10.1); Carbon Dioxide 24.5 meq/L (21.0-32.0); Magnesium 2.4 mg/dL (1.5-2.5); Phosphorus 4.1 mg/dL (2.5-4.9); Potassium 4.6 meq/L (3.5-5.1)
[2018-02-05] MEDS: Levothyroxine 50 MCG Tablet PO SCH (05:44)
[2018-02-05] MEDS: Heparin - SQ 10,000 UNITS/ML Vial SQ SCH ×2 (05:44→13:40)
[2018-02-05] MEDS: Polyethylene Glycol 3350 17 GM Packet PO SCH ×2 (08:01→21:00)
[2018-02-05] MEDS: Furosemide 20 MG Tablet PO SCH (08:01)
[2018-02-05] MEDS: Ferrous Sulfate 325 MG Tablet PO SCH (08:01)
[2018-02-05] MEDS: Folic Acid 1 MG Tablet PO SCH (08:01)
[2018-02-05] MEDS: Spironolactone 50 MG Tablet PO SCH (08:01)
[2018-02-05] MEDS: Senna/Docusate Sodium 8.6/50 MG Tablet PO SCH ×2 (08:02→20:59)
--- NOTE | 2018-02-05 11:22 | P.PN ---
Subjective Interval history: Pt seen and examined. Denies acute events overnight. Reports no change to his extremity and scrotal swelling. Complains of pain from the edema. Also complaining of LUE swelling, more so compared to RUE. IV access in RUE. Pt denies CP, SOB, abdominal pain, N/V. 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 Physical Exam Vital signs: Vital Signs 02/04/18 12:00 02/04/18 14:00 02/04/18 16:00 Temperature 98.1 F 98.2 F Pulse Rate 59 L 76 65 Respiratory Rate 18 17 Blood Pressure 87/58 L 95/59 L Pulse Oximetry 93 L 90 L 02/04/18 20:00 02/04/18 22:00 02/05/18 00:00 Temperature 97.5 F L 97.9 F Pulse Rate 65 70 66 Respiratory Rate 18 17 Blood Pressure 97/59 L 96/58 L Pulse Oximetry 93 L 88 L 02/05/18 02:00 02/05/18 04:00 02/05/18 06:00 Temperature 98.1 F Pulse Rate 72 74 70 Respiratory Rate 19 Blood Pressure 97/59 L Pulse Oximetry 88 L 02/05/18 07:53 02/05/18 08:00 02/05/18 10:00 Temperature 97.9 F Pulse Rate 73 71 Respiratory Rate 21 Blood Pressure 102/59 L Pulse Oximetry 92 L 91 L Intake & Output 02/04/18 02/05/18 02/05/18 18:59 06:59 18:59 Intake Total 360 / 360 Output Total 500 / 500 Balance -140 / -140 Weight 111 kg Intake: Oral 360 / 360 Output: Urine 500 / 500 Other: Date of Last Bowel Movement 02/04/18 02/04/18 02/05/18 # Bowel Movements 0 Narrative: GENERAL: WN, WD male sitting up in bed in NAD. SKIN: Warm and dry. HEENT: AT/NC. Pupils equal and round. MMM. HEART: IRR no m/r/g. LUNGS: CTAB without wheezes or crackles. ABDOMEN: +BS, soft, NT, ND. EXTREMITIES: 2+ pitting edema to his proximal thighs. Scrotal edema. LUE edema. NEURO: Awake and alert. Results - Labs CBC & Chem 7: 02/05/18 04:10 02/05/18 04:10 Laboratory Results - last 24 hr 02/04/18 02/05/18 02/05/18 05:17 04:10 04:10 WBC 6.6 RBC 4.22 L Hgb 12.8 L Hct 38.5 L MCV 91.3 MCH 30.3 MCHC 33.2 RDW 17.7 H Plt Count 428 MPV 7.7 Neut % (Auto) 83.6 H Lymph % (Auto) 6.6 L [place] % (Auto) 5.1 Eos % (Auto) 4.1 H Baso % (Auto) 0.6 Neut # (Auto) 5.5 Lymph # (Auto) 0.4 L [place] # (Auto) 0.3 Eos # (Auto) 0.3 Baso # (Auto) 0.0 WBC Differential . Differential Comment Auto diff final Sodium 132 L Potassium 4.6 Chloride 98 Carbon Dioxide 24.5 Anion Gap 10 BUN 53 H Creatinine 1.96 H Estimated GFR 34 L Random Glucose 73 L Calcium 8.1 L Phosphorus 4.1 Magnesium 2.4 B-Natriuretic Peptide 2239 H Albumin 2.1 L Assessment and Plan - Assessment (1) Acute worsening of stage 3 chronic kidney disease Code(s): N18.3 - Chronic kidney disease, stage 3 (moderate) Status: Acute (2) Congestive heart failure Code(s): I50.9 - Heart failure, unspecified Status: Acute (3) Edema Code(s): R60.9 - Edema, unspecified Status: Acute - Plan 72 year old male with history of diastolic CHF, atrial fibrillation, hypothyroidism, gout, and alcohol liver disease admitted on 01/27 for progressive LE swelling, shortness of breath, and RLE erythema, warmth, and swelling. He was initially admitted under critical care medicine for CHF exacerbation and combination septic-cardiogenic shock requiring pressors. 1. Acute diastolic CHF exacerbation - 2D echo 02/02 showing normal LV size and wall thickness, LV EF 50-55%, elevated pulmonary arterial pressure, mildly dilated RA and RV - Last CXR 01/29 with findings consistent with congestive heart failure with pulmonary edema - BNP 1708 on admission and increasing, up to 2239 on 02/04 - Supplemental O2 PRN - Increase Lasix to 80 mg BID since there is no improvement in his edema - Nephrology has started him on spironolactone - Pt has been here nine days with little to no improvement in his edema. His hypotension and ELOINA on CKD are complicating his course. Will consult cardiology for further eval and assistance with managing 2. ELOINA on CKD - Nonoliguric but UOP decreasing - Nephrology following - Avoid unnecessary nephrotoxic agents - Renally dose meds - Monitoring closely with diuresis 3. Acute on chronic respiratory insufficieincy - On 3L at home and requiring 6L to maintain sats while in the hospital - Recheck CXR today - Pulm following - Supplemental O2 - DuoNeb PRN 4. Hypotension - SBP stable in the 90 to low 100s - Continue midodrine - Caution with diuresis 5. RLE cellulitis - resolved - CT showed subcutaneous swelling c/w cellulitis, no signs of deep tissue abscess or necrotizing fascitis - Doppler US negative for DVT - ID was consulted earlier in hospitalization - Patient treated with combination of vanco, Zosyn, Clinda, and Zyvox - All antibiotics have been discontinued as his cellulitis resolved - ID has signed off 6. Chronic hyponatremia - At baseline - Continue to monitor 7. Atrial fibrillation - Diltiazem held as patient has been hypotensive - Remains rate-controlled - Not on any anticoagulation but follows with Dr. Paris as OP - Continue ASA 8. Hypothyroidism - TSH WNL - Continue home levothyroxine 9. Gout - Continue home allopurinol DVT prophylaxis: heparin SQ Code Status: Full Discussed Condition With: Patient and RN (2) Congestive heart failure Qualifiers: Heart failure type: unspecified Heart failure chronicity: chronic Qualified Code(s): I50.9 - Heart failure, unspecified
--- NOTE | 2018-02-05 11:47 | P.PNNP ---
Subjective Interval history: Patient is alert, has mild SOB, not in distress. Physical Exam Vital signs: Vital Signs 02/04/18 12:00 02/04/18 14:00 02/04/18 16:00 Temperature 98.1 F 98.2 F Pulse Rate 59 L 76 65 Respiratory Rate 18 17 Blood Pressure 87/58 L 95/59 L Pulse Oximetry 93 L 90 L 02/04/18 20:00 02/04/18 22:00 02/05/18 00:00 Temperature 97.5 F L 97.9 F Pulse Rate 65 70 66 Respiratory Rate 18 17 Blood Pressure 97/59 L 96/58 L Pulse Oximetry 93 L 88 L 02/05/18 02:00 02/05/18 04:00 02/05/18 06:00 Temperature 98.1 F Pulse Rate 72 74 70 Respiratory Rate 19 Blood Pressure 97/59 L Pulse Oximetry 88 L 02/05/18 07:53 02/05/18 08:00 02/05/18 10:00 Temperature 97.9 F Pulse Rate 73 71 Respiratory Rate 21 Blood Pressure 102/59 L Pulse Oximetry 92 L 91 L Intake & Output 02/04/18 02/05/18 02/05/18 18:59 06:59 18:59 Intake Total 360 / 360 Output Total 500 / 500 Balance -140 / -140 Weight 111 kg Intake: Oral 360 / 360 Output: Urine 500 / 500 Other: Date of Last Bowel Movement 02/04/18 02/04/18 02/05/18 # Bowel Movements 0 Narrative: GENERAL: WN, WD male sitting up in bed in [facility]. SKIN: Warm and dry. HEENT: AT/NC. Pupils equal and round. MMM. HEART: IRR no m/r/g. LUNGS: CTAB without wheezes or crackles. ABDOMEN: +BS, soft, NT, ND. EXTREMITIES: 2+ pitting edema to his proximal thighs. Scrotal edema. LUE edema. NEURO: Awake and alert. Assessment and Plan - Assessment (1) Acute worsening of stage 3 chronic kidney disease Code(s): N18.3 - Chronic kidney disease, stage 3 (moderate) Status: Acute Plan: Non oliguric. Fluid retention is present. On Lasix 80 mg BID and Spironolactone to 50 mg PO daily. Creatinine 1.9, same, continue diuretics, follow the urine out put and BMP. (2) Sepsis Code(s): A41.9 - Sepsis, unspecified organism Status: Acute Qualifiers: Sepsis type: sepsis due to unspecified organism Qualified Code(s): A41.9 - Sepsis, unspecified organism (3) Cellulitis of leg, right Code(s): L03.115 - Cellulitis of right lower limb Status: Acute Plan: Improved, antibiotics have been stopped. (4) Congestive heart failure Code(s): I50.9 - Heart failure, unspecified Status: Acute Qualifiers: Heart failure type: unspecified Heart failure chronicity: chronic Qualified Code(s): I50.9 - Heart failure, unspecified Plan: continue diuretic. - Plan Patient seen his creatinine is responding to Lasix declined to 1.9 output 1.5 L , Lasix reduce and to continue 20 mg IV every 12 hourly Cellulitis is being treated infectious disease is following He is on Zosyn and vancomycin Now on Cleocin Continue to monitor intake and output Avoid nephrotoxins Vancomycin drug levels should be monitored We will continue to monitor Follows with Dr. Webber
--- NOTE | 2018-02-05 14:23 | P.PN ---
Subjective Interval history: Making some progress. Arm edema is less. On o2 3 l Good output Physical Exam Vital signs: Vital Signs 02/04/18 16:00 02/04/18 20:00 02/04/18 22:00 Temperature 98.2 F 97.5 F L Pulse Rate 65 65 70 Respiratory Rate 17 18 Blood Pressure 95/59 L 97/59 L Pulse Oximetry 90 L 93 L 02/05/18 00:00 02/05/18 02:00 02/05/18 04:00 Temperature 97.9 F 98.1 F Pulse Rate 66 72 74 Respiratory Rate 17 19 Blood Pressure 96/58 L 97/59 L Pulse Oximetry 88 L 88 L 02/05/18 06:00 02/05/18 07:53 02/05/18 08:00 Temperature 97.9 F Pulse Rate 70 73 Respiratory Rate 21 Blood Pressure 102/59 L Pulse Oximetry 92 L 91 L 02/05/18 10:00 Temperature Pulse Rate 71 Respiratory Rate Blood Pressure Pulse Oximetry Intake & Output 02/04/18 02/05/18 02/05/18 18:59 06:59 18:59 Intake Total 360 / 360 Output Total 500 / 500 Balance -140 / -140 Weight 111 kg Intake: Oral 360 / 360 Output: Urine 500 / 500 Other: Date of Last Bowel Movement 02/04/18 02/04/18 02/05/18 # Bowel Movements 0 Narrative: GENERAL: WN, WD male sitting up in bed in NAD. SKIN: Warm and dry. HEENT: Pupils equal and round. Throat clear HEART: Reg Rythm. no Murmur LUNGS: distant breath sounds with occ crackles at bases ABDOMEN: soft, NT, ND. EXTREMITIES: 2+ pitting edema to his proximal thighs. Scrotal edema. LUE edema. NEURO: Awake and alert. Results - Labs CBC & Chem 7: 02/05/18 04:10 02/05/18 04:10 Laboratory Results - last 24 hr 02/05/18 02/05/18 04:10 04:10 WBC 6.6 RBC 4.22 L Hgb 12.8 L Hct 38.5 L MCV 91.3 MCH 30.3 MCHC 33.2 RDW 17.7 H Plt Count 428 MPV 7.7 Neut % (Auto) 83.6 H Lymph % (Auto) 6.6 L [place] % (Auto) 5.1 Eos % (Auto) 4.1 H Baso % (Auto) 0.6 Neut # (Auto) 5.5 Lymph # (Auto) 0.4 L [place] # (Auto) 0.3 Eos # (Auto) 0.3 Baso # (Auto) 0.0 WBC Differential . Differential Comment Auto diff final Sodium 132 L Potassium 4.6 Chloride 98 Carbon Dioxide 24.5 Anion Gap 10 BUN 53 H Creatinine 1.96 H Estimated GFR 34 L Random Glucose 73 L Calcium 8.1 L Phosphorus 4.1 Magnesium 2.4 Albumin 2.1 L - Imaging Impressions Chest X-Ray 02/05/18 00:00 CONCLUSION: Stable appearance of the lungs. Venous Doppler Study 02/05/18 00:00 CONCLUSION: 1. Cephalic vein thrombosis. Assessment and Plan - Assessment (1) Edema Code(s): R60.9 - Edema, unspecified Status: Acute (2) Sepsis Code(s): A41.9 - Sepsis, unspecified organism Status: Acute (3) Cellulitis of leg, right Code(s): L03.115 - Cellulitis of right lower limb Status: Acute (4) Congestive heart failure Code(s): I50.9 - Heart failure, unspecified Status: Acute (5) Chronic kidney disease (CKD) stage G4/A1, severely decreased glomerular filtration rate (GFR) between 15-29 mL/min/1.73 square meter and albuminuria creatinine ratio less than 30 mg/g Code(s): N18.4 - Chronic kidney disease, stage 4 (severe) Status: Acute (6) Acute worsening of stage 3 chronic kidney disease Code(s): N18.3 - Chronic kidney disease, stage 3 (moderate) Status: Acute - Plan 1. Continue O2 at 2 L and wean 2. Cont Nebs qid duoneb 3. Continue heparin 5000 U S/Q q8h 4. IS q2h bedside 5. Chest X ray Wednesday 6. Continue diuresis with lasix 80 mg BID (2) Sepsis Qualifiers: Sepsis type: sepsis due to unspecified organism Qualified Code(s): A41.9 - Sepsis, unspecified organism (4) Congestive heart failure Qualifiers: Heart failure type: unspecified Heart failure chronicity: chronic Qualified Code(s): I50.9 - Heart failure, unspecified
[2018-02-05] MEDS: Furosemide 80 MG Tablet PO SCH (18:05)
[2018-02-05] MEDS: Pantoprazole Inj 40 MG Vial IV.PUSH SCH (20:58)
[2018-02-05] MEDS: Allopurinol 300 MG Tablet PO SCH (20:59)
[2018-02-06] MEDS: Heparin - SQ 10,000 UNITS/ML Vial SQ SCH ×4 (01:17→22:08)
[2018-02-06 07:05] LABS: Hematocrit 40.9 % (39.0-51.0); Hemoglobin 13.3 gm/dL (13.0-17.0); Mean Corpuscular HGB Conc 32.5 % (32.0-36.0); Mean Corpuscular Hemoglobin 30.3 pg (27.0-34.0); Mean Corpuscular Volume 93.3 fL (80.0-100.0); Mean Platelet Volume 7.8 fL (7.0-11.0); Platelet Count 431 th/mm3 (150-450); Red Blood Count 4.38 mil/mm3 (4.50-5.90); Red Cell Distribution Width 17.5 % (11.6-17.2); White Blood Count 7.1 th/mm3 (4.0-11.0)
[2018-02-06 07:27] LABS: Calcium 8.1 mg/dL (8.5-10.1); Carbon Dioxide 24.9 meq/L (21.0-32.0); Potassium 4.8 meq/L (3.5-5.1)
--- NOTE | 2018-02-06 07:48 | P.PN ---
Subjective Interval history: Pt seen and examined. Reports his swelling has improved a little and he has noticed he is urinating more after increasing his Lasix. Denies CP or SOB. Tolerating PO. No N/V. Physical Exam Vital signs: Vital Signs 02/05/18 07:53 02/05/18 08:00 02/05/18 10:00 Temperature 97.9 F Pulse Rate 73 71 Respiratory Rate 21 Blood Pressure 102/59 L Pulse Oximetry 92 L 91 L 02/05/18 12:00 02/05/18 14:00 02/05/18 16:00 Temperature 98.5 F Pulse Rate 71 70 69 Respiratory Rate 19 14 Blood Pressure 98/63 L 104/64 Pulse Oximetry 90 L 86 L 02/05/18 17:00 02/05/18 18:00 02/05/18 18:39 Temperature Pulse Rate 63 69 72 Respiratory Rate 17 16 Blood Pressure 100/70 95/60 L Pulse Oximetry 91 L 89 L 02/05/18 19:00 02/05/18 20:00 02/05/18 20:06 Temperature 97.7 F Pulse Rate 74 74 Respiratory Rate 17 23 Blood Pressure 86/60 L 91/69 L Pulse Oximetry 89 L 89 L 94 L 02/05/18 21:00 02/05/18 22:00 02/05/18 22:01 Temperature Pulse Rate 73 66 70 Respiratory Rate 16 16 16 Blood Pressure 84/61 L 86/65 L Pulse Oximetry 91 L 93 L 93 L 02/05/18 23:00 02/05/18 23:01 02/06/18 00:00 Temperature 97.7 F Pulse Rate 68 65 74 Respiratory Rate 18 19 14 Blood Pressure 122/62 105/69 Pulse Oximetry 92 L 92 L 92 L 02/06/18 01:00 02/06/18 01:01 02/06/18 02:00 Temperature Pulse Rate 75 76 75 Respiratory Rate 31 H 26 H 15 Blood Pressure 103/78 Pulse Oximetry 91 L 93 L 90 L 02/06/18 02:01 02/06/18 03:00 02/06/18 04:00 Temperature 98.5 F Pulse Rate 78 76 79 Respiratory Rate 17 21 25 H Blood Pressure 110/67 105/68 Pulse Oximetry 91 L 91 L 90 L 02/06/18 04:01 02/06/18 05:00 09/16/18 06:00 Temperature Pulse Rate 79 74 78 Respiratory Rate 17 14 15 Blood Pressure 131/71 107/68 105/68 Pulse Oximetry 91 L 89 L 89 L 02/06/18 07:00 02/06/18 07:32 Temperature Pulse Rate 80 Respiratory Rate 16 Blood Pressure 105/57 L Pulse Oximetry 87 L 92 L Intake & Output 02/05/18 02/06/18 02/06/18 18:59 06:59 18:59 Intake Total 1070 / 1070 480 / 480 Output Total 1300 / 1300 1000 / 1000 Balance -230 / -230 -520 / -520 Weight 104.2 kg Intake: Oral 1070 / 1070 480 / 480 Output: Urine 1300 / 1300 1000 / 1000 Other: # Voids 2 Date of Last Bowel Movement 02/05/18 02/06/18 Narrative: GENERAL: WN, WD male sitting up in bed in [facility]. SKIN: Warm and dry. HEENT: Pupils equal and round. MMM. HEART: RRR no m/r/g. LUNGS: Distant breath sounds with occasional bibasilar crackles. ABDOMEN: Soft, NT, ND. EXTREMITIES: 2+ pitting edema to his proximal thighs though improved from yesterday. Scrotal edema. LUE pitting edema. NEURO: Awake and alert. Results - Labs CBC & Chem 7: 02/06/18 05:27 02/06/18 05:27 Laboratory Results - last 24 hr 02/06/18 02/06/18 05:27 05:27 WBC 7.1 RBC 4.38 L Hgb 13.3 Hct 40.9 MCV 93.3 MCH 30.3 MCHC 32.5 RDW 17.5 H Plt Count 431 MPV 7.8 Sodium 133 L Potassium 4.8 Chloride 100 Carbon Dioxide 24.9 Anion Gap 8 BUN 51 H Creatinine 1.95 H Estimated GFR 34 L Random Glucose 81 Calcium 8.1 L - Imaging Impressions Chest X-Ray 02/05/18 00:00 CONCLUSION: Stable appearance of the lungs. Venous Doppler Study 02/05/18 00:00 CONCLUSION: 1. Cephalic vein thrombosis. Assessment and Plan - Assessment (1) Acute worsening of stage 3 chronic kidney disease Code(s): N18.3 - Chronic kidney disease, stage 3 (moderate) Status: Acute (2) Congestive heart failure Code(s): I50.9 - Heart failure, unspecified Status: Acute (3) Edema Code(s): R60.9 - Edema, unspecified Status: Acute - Plan 72 year old male with history of diastolic CHF, atrial fibrillation, hypothyroidism, gout, and alcohol liver disease admitted on 01/27 for progressive LE swelling, shortness of breath, and RLE erythema, warmth, and swelling. He was initially admitted under critical care medicine for CHF exacerbation and combination septic-cardiogenic shock requiring pressors. 02/06: Still requiring 5L to maintain sats but otherwise no shortness of breath and patient remains stable. Transfer to floor. Continue diuresing. 1. Acute diastolic CHF exacerbation - 2D echo 02/02 showing normal LV size and wall thickness, LV EF 50-55%, elevated pulmonary arterial pressure, mildly dilated RA and RV - CXR 02/05 showing persistent cardiomegaly and patchy bilateral airspace disease - BNP 1708 on admission, up to 2239 on 02/04, decreasing this AM - Supplemental O2 PRN - Continue Lasix 80 mg BID - Nephrology has started him on spironolactone - Cardiology consulted yesterday and pt had been here nine days with little to no improvement in his edema. Recommend continuing current management 2. ELOINA on CKD - Nonoliguric - Nephrology following - Creatinine essentially the same, 1.95 - Avoid unnecessary nephrotoxic agents - Renally dose meds - Monitoring closely with diuresis 3. Acute on chronic respiratory insufficiency - On 3L at home and requiring 6L to maintain sats while in the hospital - Sats 87-92% on 5-6L - CXR rechecked 02/05, stable cardiomegaly and patchy airspace disease - Pulm following - Supplemental O2 - DuoNeb Q4H scheduled - Albuterol PRN 4. Hypotension - SBP stable in the 90 to low 100s - Continue midodrine - Caution with diuresis 5. RLE cellulitis - resolved - CT showed subcutaneous swelling c/w cellulitis, no signs of deep tissue abscess or necrotizing fascitis - Doppler US negative for DVT - ID was consulted earlier in hospitalization - Patient treated with combination of vanco, Zosyn, Clinda, and Zyvox - All antibiotics have been discontinued as his cellulitis resolved - ID has signed off 6. Chronic hyponatremia - At baseline - Continue to monitor 7. Atrial fibrillation - Diltiazem held as patient has been hypotensive - Remains rate-controlled - Not on any anticoagulation but follows with Dr. Paris as OP - Continue ASA 8. Hypothyroidism - TSH WNL - Continue home levothyroxine 9. Gout - Continue home allopurinol DVT prophylaxis: heparin SQ Code Status: Full Discussed Condition With: Patient Discharge Planning: Continuing to require 5-6L O2 and creatinine remains elevated. Pulm, cardiology , and nephrology following. (2) Congestive heart failure Qualifiers: Heart failure type: unspecified Heart failure chronicity: chronic Qualified Code(s): I50.9 - Heart failure, unspecified
[2018-02-06] MEDS: Folic Acid 1 MG Tablet PO SCH (08:18)
[2018-02-06] MEDS: Spironolactone 50 MG Tablet PO SCH (08:18)
[2018-02-06] MEDS: Furosemide 80 MG Tablet PO SCH ×2 (08:23→17:05)
[2018-02-06] MEDS: Senna/Docusate Sodium 8.6/50 MG Tablet PO SCH ×2 (08:23→22:01)
[2018-02-06] MEDS: Levothyroxine 50 MCG Tablet PO SCH (08:23)
[2018-02-06] MEDS: Polyethylene Glycol 3350 17 GM Packet PO SCH ×2 (08:23→22:01)
--- NOTE | 2018-02-06 14:10 | P.PN ---
Subjective Interval history: Feeling better Physical Exam Vital signs: Vital Signs 02/05/18 16:00 02/05/18 17:00 02/05/18 18:00 Temperature Pulse Rate 69 63 69 Respiratory Rate 14 17 16 Blood Pressure 104/64 100/70 95/60 L Pulse Oximetry 86 L 91 L 89 L 02/05/18 18:39 02/05/18 19:00 02/05/18 20:00 Temperature 97.7 F Pulse Rate 72 74 74 Respiratory Rate 17 23 Blood Pressure 86/60 L 91/69 L Pulse Oximetry 89 L 89 L 02/05/18 20:06 02/05/18 21:00 02/05/18 22:00 Temperature Pulse Rate 73 66 Respiratory Rate 16 16 Blood Pressure 84/61 L Pulse Oximetry 94 L 91 L 93 L 02/05/18 22:01 02/05/18 23:00 02/05/18 23:01 Temperature Pulse Rate 70 68 65 Respiratory Rate 16 18 19 Blood Pressure 86/65 L 122/62 Pulse Oximetry 93 L 92 L 92 L 02/06/18 00:00 02/06/18 01:00 02/06/18 01:01 Temperature 97.7 F Pulse Rate 74 75 76 Respiratory Rate 14 31 H 26 H Blood Pressure 105/69 103/78 Pulse Oximetry 92 L 91 L 93 L 02/06/18 02:00 02/06/18 02:01 02/06/18 03:00 Temperature Pulse Rate 75 78 76 Respiratory Rate 15 17 21 Blood Pressure 110/67 105/68 Pulse Oximetry 90 L 91 L 91 L 02/06/18 04:00 02/06/18 04:01 02/06/18 05:00 Temperature 98.5 F Pulse Rate 79 79 74 Respiratory Rate 25 H 17 14 Blood Pressure 131/71 107/68 Pulse Oximetry 90 L 91 L 89 L 02/06/18 06:00 02/06/18 07:00 02/06/18 07:32 Temperature Pulse Rate 78 80 Respiratory Rate 15 16 Blood Pressure 105/68 105/57 L Pulse Oximetry 89 L 87 L 92 L 02/06/18 08:00 02/06/18 10:00 02/06/18 12:00 Temperature 98.7 F 98.4 F Pulse Rate 79 78 75 Respiratory Rate 17 18 Blood Pressure 101/73 107/92 H Pulse Oximetry 93 L 94 L 02/06/18 14:00 Temperature Pulse Rate 72 Respiratory Rate Blood Pressure Pulse Oximetry Intake & Output 02/05/18 02/06/18 02/06/18 18:59 06:59 18:59 Intake Total 1070 / 1070 480 / 480 240 / 240 Output Total 1300 / 1300 1000 / 1000 400 / 400 Balance -230 / -230 -520 / -520 -160 / -160 Weight 104.2 kg Intake: Oral 1070 / 1070 480 / 480 240 / 240 Output: Urine 1300 / 1300 1000 / 1000 400 / 400 Other: # Voids 2 Date of Last Bowel Movement 02/05/18 02/06/18 02/06/18 # Bowel Movements 1 - Constitutional no acute distress - Routine HEENT Exam Head: Present: normocephalic Eye: Present: EOMI, PERRL - Routine Respiratory Exam Present: CTA bilaterally - Routine Cardiovascular Exam Present: irregularly irregular - Routine Abdominal Exam Present: soft - Routine Extremities Exam Present: edema Results - Labs CBC & Chem 7: 02/06/18 05:27 02/06/18 05:27 Laboratory Results - last 24 hr 02/06/18 02/06/18 02/06/18 05:27 05:27 05:27 WBC 7.1 RBC 4.38 L Hgb 13.3 Hct 40.9 MCV 93.3 MCH 30.3 MCHC 32.5 RDW 17.5 H Plt Count 431 MPV 7.8 Sodium 133 L Potassium 4.8 Chloride 100 Carbon Dioxide 24.9 Anion Gap 8 BUN 51 H Creatinine 1.95 H Estimated GFR 34 L Random Glucose 81 Calcium 8.1 L B-Natriuretic Peptide 1917 H Assessment and Plan - Assessment (1) Congestive heart failure Code(s): I50.9 - Heart failure, unspecified Status: Acute Plan: Condition significantly improve Doing better less SOB Edema improves Continue on current meds (2) Edema Code(s): R60.9 - Edema, unspecified Status: Acute - Plan Significantly improve (1) Congestive heart failure Qualifiers: Heart failure type: unspecified Heart failure chronicity: chronic Qualified Code(s): I50.9 - Heart failure, unspecified
--- NOTE | 2018-02-06 15:09 | P.PN ---
Subjective Interval history: Was transferred to [facility]. Now on 5 L O2. Sats 96. Good urine output. Overall better Physical Exam Vital signs: Vital Signs 02/05/18 16:00 02/05/18 17:00 02/05/18 18:00 Temperature Pulse Rate 69 63 69 Respiratory Rate 14 17 16 Blood Pressure 104/64 100/70 95/60 L Pulse Oximetry 86 L 91 L 89 L 02/05/18 18:39 02/05/18 19:00 02/05/18 20:00 Temperature 97.7 F Pulse Rate 72 74 74 Respiratory Rate 17 23 Blood Pressure 86/60 L 91/69 L Pulse Oximetry 89 L 89 L 02/05/18 20:06 02/05/18 21:00 02/05/18 22:00 Temperature Pulse Rate 73 66 Respiratory Rate 16 16 Blood Pressure 84/61 L Pulse Oximetry 94 L 91 L 93 L 02/05/18 22:01 02/05/18 23:00 02/05/18 23:01 Temperature Pulse Rate 70 68 65 Respiratory Rate 16 18 19 Blood Pressure 86/65 L 122/62 Pulse Oximetry 93 L 92 L 92 L 02/06/18 00:00 02/06/18 01:00 02/06/18 01:01 Temperature 97.7 F Pulse Rate 74 75 76 Respiratory Rate 14 31 H 26 H Blood Pressure 105/69 103/78 Pulse Oximetry 92 L 91 L 93 L 02/06/18 02:00 02/06/18 02:01 02/06/18 03:00 Temperature Pulse Rate 75 78 76 Respiratory Rate 15 17 21 Blood Pressure 110/67 105/68 Pulse Oximetry 90 L 91 L 91 L 02/06/18 04:00 02/06/18 04:01 02/06/18 05:00 Temperature 98.5 F Pulse Rate 79 79 74 Respiratory Rate 25 H 17 14 Blood Pressure 131/71 107/68 Pulse Oximetry 90 L 91 L 89 L 02/06/18 06:00 02/06/18 07:00 02/06/18 07:32 Temperature Pulse Rate 78 80 Respiratory Rate 15 16 Blood Pressure 105/68 105/57 L Pulse Oximetry 89 L 87 L 92 L 02/06/18 08:00 02/06/18 10:00 02/06/18 12:00 Temperature 98.7 F 98.4 F Pulse Rate 79 78 75 Respiratory Rate 17 18 Blood Pressure 101/73 107/92 H Pulse Oximetry 93 L 94 L 02/06/18 14:00 Temperature Pulse Rate 72 Respiratory Rate Blood Pressure Pulse Oximetry Intake & Output 02/05/18 02/06/18 02/06/18 18:59 06:59 18:59 Intake Total 1070 / 1070 480 / 480 240 / 240 Output Total 1300 / 1300 1000 / 1000 400 / 400 Balance -230 / -230 -520 / -520 -160 / -160 Weight 104.2 kg Intake: Oral 1070 / 1070 480 / 480 240 / 240 Output: Urine 1300 / 1300 1000 / 1000 400 / 400 Other: # Voids 2 Date of Last Bowel Movement 02/05/18 02/06/18 02/06/18 # Bowel Movements 1 Narrative: GENERAL: Elderly male sitting up in bed in [facility]. SKIN: Warm and dry. HEENT: Pupils equal and round. MMM. HEART: Reg and no Murmur, S1 S2 LUNGS: Distant breath sounds with occasional bibasilar crackles. ABDOMEN: Soft, NT, ND. EXTREMITIES: 2+ pitting edema to his proximal thighs though improved from yesterday. Scrotal edema. LUE edema. NEURO: Awake and alert. Moves all. Results - Labs CBC & Chem 7: 02/06/18 05:27 02/06/18 05:27 Laboratory Results - last 24 hr 02/06/18 02/06/18 02/06/18 05:27 05:27 05:27 WBC 7.1 RBC 4.38 L Hgb 13.3 Hct 40.9 MCV 93.3 MCH 30.3 MCHC 32.5 RDW 17.5 H Plt Count 431 MPV 7.8 Sodium 133 L Potassium 4.8 Chloride 100 Carbon Dioxide 24.9 Anion Gap 8 BUN 51 H Creatinine 1.95 H Estimated GFR 34 L Random Glucose 81 Calcium 8.1 L B-Natriuretic Peptide 1917 H Assessment and Plan - Assessment (1) Edema Code(s): R60.9 - Edema, unspecified Status: Acute (2) Sepsis Code(s): A41.9 - Sepsis, unspecified organism Status: Acute (3) Cellulitis of leg, right Code(s): L03.115 - Cellulitis of right lower limb Status: Acute (4) Congestive heart failure Code(s): I50.9 - Heart failure, unspecified Status: Acute (5) Chronic kidney disease (CKD) stage G4/A1, severely decreased glomerular filtration rate (GFR) between 15-29 mL/min/1.73 square meter and albuminuria creatinine ratio less than 30 mg/g Code(s): N18.4 - Chronic kidney disease, stage 4 (severe) Status: Acute (6) Acute worsening of stage 3 chronic kidney disease Code(s): N18.3 - Chronic kidney disease, stage 3 (moderate) Status: Acute - Plan 1. Continue O2 at 4 L and wean to keep sat >92 2. Cont Nebs qid duoneb 3. Continue heparin 5000 U S/Q q8h 4. IS q2h bedside 5. Chest Xray in am 6. Continue lasix 80 mg BID (2) Sepsis Qualifiers: Sepsis type: sepsis due to unspecified organism Qualified Code(s): A41.9 - Sepsis, unspecified organism (4) Congestive heart failure Qualifiers: Heart failure type: unspecified Heart failure chronicity: chronic Qualified Code(s): I50.9 - Heart failure, unspecified
--- NOTE | 2018-02-06 16:35 | P.PNNP ---
Subjective Interval history: Patient seen in the afternoon, has mild SOB, no chest pain. Physical Exam Vital signs: Vital Signs 02/05/18 17:00 02/05/18 18:00 02/05/18 18:39 Temperature Pulse Rate 63 69 72 Respiratory Rate 17 16 Blood Pressure 100/70 95/60 L Pulse Oximetry 91 L 89 L 02/05/18 19:00 02/05/18 20:00 02/05/18 20:06 Temperature 97.7 F Pulse Rate 74 74 Respiratory Rate 17 23 Blood Pressure 86/60 L 91/69 L Pulse Oximetry 89 L 89 L 94 L 02/05/18 21:00 02/05/18 22:00 02/05/18 22:01 Temperature Pulse Rate 73 66 70 Respiratory Rate 16 16 16 Blood Pressure 84/61 L 86/65 L Pulse Oximetry 91 L 93 L 93 L 02/05/18 23:00 02/05/18 23:01 02/06/18 00:00 Temperature 97.7 F Pulse Rate 68 65 74 Respiratory Rate 18 19 14 Blood Pressure 122/62 105/69 Pulse Oximetry 92 L 92 L 92 L 02/06/18 01:00 02/06/18 01:01 02/06/18 02:00 Temperature Pulse Rate 75 76 75 Respiratory Rate 31 H 26 H 15 Blood Pressure 103/78 Pulse Oximetry 91 L 93 L 90 L 02/06/18 02:01 02/06/18 03:00 02/06/18 04:00 Temperature 98.5 F Pulse Rate 78 76 79 Respiratory Rate 17 21 25 H Blood Pressure 110/67 105/68 Pulse Oximetry 91 L 91 L 90 L 02/06/18 04:01 02/06/18 05:00 02/06/18 06:00 Temperature Pulse Rate 79 74 78 Respiratory Rate 17 14 15 Blood Pressure 131/71 107/68 105/68 Pulse Oximetry 91 L 89 L 89 L 02/06/18 07:00 02/06/18 07:32 02/06/18 08:00 Temperature 98.7 F Pulse Rate 80 79 Respiratory Rate 16 17 Blood Pressure 105/57 L 101/73 Pulse Oximetry 87 L 92 L 93 L 02/06/18 10:00 02/06/18 12:00 02/06/18 14:00 Temperature 98.4 F Pulse Rate 78 75 72 Respiratory Rate 18 Blood Pressure 107/92 H Pulse Oximetry 94 L 02/06/18 15:00 02/06/18 16:00 02/06/18 16:30 Temperature 98.3 F Pulse Rate 72 66 69 Respiratory Rate 16 18 Blood Pressure 111/59 L Pulse Oximetry 94 L Intake & Output 02/05/18 02/06/18 02/06/18 18:59 06:59 18:59 Intake Total 1070 / 1070 480 / 480 240 / 240 Output Total 1300 / 1300 1000 / 1000 400 / 400 Balance -230 / -230 -520 / -520 -160 / -160 Weight 104.2 kg Intake: Oral 1070 / 1070 480 / 480 240 / 240 Output: Urine 1300 / 1300 1000 / 1000 400 / 400 Other: # Voids 2 Date of Last Bowel Movement 02/05/18 02/06/18 02/06/18 # Bowel Movements 1 Narrative: GENERAL: Elderly male sitting up in bed in NAD. SKIN: Warm and dry. HEENT: Pupils equal and round. MMM. HEART: Reg and no Murmur, S1 S2 LUNGS: Distant breath sounds with occasional bibasilar crackles. ABDOMEN: Soft, NT, ND. EXTREMITIES: 2+ pitting edema to his proximal thighs though improved from yesterday. Scrotal edema. LUE edema. NEURO: Awake and alert. Moves all. Assessment and Plan - Assessment (1) Acute worsening of stage 3 chronic kidney disease Code(s): N18.3 - Chronic kidney disease, stage 3 (moderate) Status: Acute Plan: Non oliguric. Fluid retention is present. On Lasix 80 mg BID and Spironolactone to 50 mg PO daily. Creatinine 1.9, same, continue diuretics, follow the urine out put and BMP. Continue diuretics. Told to restrict fluid intake. (2) Sepsis Code(s): A41.9 - Sepsis, unspecified organism Status: Acute Qualifiers: Sepsis type: sepsis due to unspecified organism Qualified Code(s): A41.9 - Sepsis, unspecified organism (3) Cellulitis of leg, right Code(s): L03.115 - Cellulitis of right lower limb Status: Acute Plan: Improved, antibiotics have been stopped. (4) Congestive heart failure Code(s): I50.9 - Heart failure, unspecified Status: Acute Qualifiers: Heart failure type: unspecified Heart failure chronicity: chronic Qualified Code(s): I50.9 - Heart failure, unspecified Plan: continue diuretic. - Plan Patient seen his creatinine is responding to Lasix declined to 1.9 output 1.5 L , Lasix reduce and to continue 20 mg IV every 12 hourly Cellulitis is being treated infectious disease is following He is on Zosyn and vancomycin Now on Cleocin Continue to monitor intake and output Avoid nephrotoxins Vancomycin drug levels should be monitored We will continue to monitor Follows with Dr. Webber
[2018-02-06] MEDS: Pantoprazole Inj 40 MG Vial IV.PUSH SCH (22:08)
[2018-02-06] MEDS: Allopurinol 300 MG Tablet PO SCH (22:09)
[2018-02-07] MEDS: Heparin - SQ 10,000 UNITS/ML Vial SQ SCH ×3 (06:30→21:18)
[2018-02-07] MEDS: Levothyroxine 50 MCG Tablet PO SCH (06:30)
[2018-02-07 07:26] LABS: Calcium 8.4 mg/dL (8.5-10.1); Carbon Dioxide 28.2 meq/L (21.0-32.0); Potassium 4.9 meq/L (3.5-5.1)
[2018-02-07] MEDS: Folic Acid 1 MG Tablet PO SCH (08:44)
[2018-02-07] MEDS: Furosemide 80 MG Tablet PO SCH ×2 (08:44→18:29)
[2018-02-07] MEDS: Polyethylene Glycol 3350 17 GM Packet PO SCH ×2 (08:48→20:39)
[2018-02-07] MEDS: Spironolactone 50 MG Tablet PO SCH (08:52)
[2018-02-07] MEDS: Ferrous Sulfate 325 MG Tablet PO SCH (08:52)
[2018-02-07] MEDS: Senna/Docusate Sodium 8.6/50 MG Tablet PO SCH ×2 (09:09→20:39)
--- NOTE | 2018-02-07 12:07 | P.PNNP ---
Subjective Interval history: Renal function is stable. Non oliguric. Negative fluid balance has been achieved. Physical Exam Vital signs: Vital Signs 02/06/18 14:00 02/06/18 15:00 02/06/18 16:00 Temperature 98.3 F Pulse Rate 72 72 66 Respiratory Rate 16 Blood Pressure 111/59 L Pulse Oximetry 94 L 02/06/18 16:30 02/06/18 17:00 02/06/18 18:00 Temperature Pulse Rate 69 68 72 Respiratory Rate 18 Blood Pressure Pulse Oximetry 02/06/18 19:00 02/06/18 20:00 02/06/18 20:04 Temperature 97.4 F L Pulse Rate 77 66 69 Respiratory Rate 20 16 Blood Pressure 110/71 Pulse Oximetry 95 92 L 02/06/18 21:00 02/06/18 22:00 02/06/18 23:00 Temperature Pulse Rate 75 74 69 Respiratory Rate 20 Blood Pressure 98/68 L Pulse Oximetry 97 02/06/18 23:20 02/06/18 23:45 02/07/18 00:00 Temperature Pulse Rate 62 65 Respiratory Rate 20 17 Blood Pressure Pulse Oximetry 02/07/18 01:00 02/07/18 02:00 02/07/18 03:00 Temperature Pulse Rate 75 77 78 Respiratory Rate 18 Blood Pressure 92/64 L Pulse Oximetry 92 L 02/07/18 04:00 02/07/18 05:00 02/07/18 05:15 Temperature Pulse Rate 81 77 60 Respiratory Rate 16 Blood Pressure Pulse Oximetry 02/07/18 06:00 02/07/18 07:00 02/07/18 07:29 Temperature 97.4 F L Pulse Rate 82 68 70 Respiratory Rate 18 16 Blood Pressure 102/65 Pulse Oximetry 96 95 02/07/18 08:00 02/07/18 12:01 Temperature Pulse Rate 70 Respiratory Rate 16 Blood Pressure Pulse Oximetry 96 Intake & Output 02/06/18 02/07/18 02/07/18 18:59 06:59 18:59 Intake Total 960 / 960 240 / 240 Output Total 800 / 800 1800 / 1800 Balance 160 / 160 -1560 / -1560 Weight 105.4 kg Intake: Oral 960 / 960 240 / 240 Output: Urine 800 / 800 1800 / 1800 Other: Date of Last Bowel Movement 02/06/18 02/06/18 02/06/18 # Bowel Movements 1 Narrative: GENERAL: Elderly male sitting up in bed in NAD. SKIN: Warm and dry. HEENT: Pupils equal and round. MMM. HEART: Reg and no Murmur, S1 S2 LUNGS: Distant breath sounds with occasional bibasilar crackles. ABDOMEN: Soft, NT, ND. EXTREMITIES: 2+ pitting edema to his proximal thighs though improved from yesterday. Scrotal edema. LUE edema. NEURO: Awake and alert. Moves all. Assessment and Plan - Assessment (1) Acute worsening of stage 3 chronic kidney disease Code(s): N18.3 - Chronic kidney disease, stage 3 (moderate) Status: Acute Plan: Non oliguric. Fluid retention is present. On Lasix 80 mg BID and Spironolactone to 50 mg PO daily. continue diuretics, follow the urine out put and BMP. Continue diuretics. Told to restrict fluid intake. (2) Sepsis Code(s): A41.9 - Sepsis, unspecified organism Status: Acute Qualifiers: Sepsis type: sepsis due to unspecified organism Qualified Code(s): A41.9 - Sepsis, unspecified organism (3) Cellulitis of leg, right Code(s): L03.115 - Cellulitis of right lower limb Status: Acute Plan: Improved, antibiotics have been stopped. (4) Congestive heart failure Code(s): I50.9 - Heart failure, unspecified Status: Acute Qualifiers: Heart failure type: unspecified Heart failure chronicity: chronic Qualified Code(s): I50.9 - Heart failure, unspecified Plan: continue diuretic.
--- NOTE | 2018-02-07 17:23 | P.PN ---
Subjective Interval history: Feeling ok Physical Exam Vital signs: Vital Signs 02/06/18 18:00 02/06/18 19:00 02/06/18 20:00 Temperature 97.4 F L Pulse Rate 72 77 66 Respiratory Rate 20 Blood Pressure 110/71 Pulse Oximetry 95 02/06/18 20:04 02/06/18 21:00 02/06/18 22:00 Temperature Pulse Rate 69 75 74 Respiratory Rate 16 Blood Pressure Pulse Oximetry 92 L 02/06/18 23:00 02/06/18 23:20 02/06/18 23:45 Temperature Pulse Rate 69 62 Respiratory Rate 20 20 17 Blood Pressure 98/68 L Pulse Oximetry 97 02/07/18 00:00 02/07/18 01:00 02/07/18 02:00 Temperature Pulse Rate 65 75 77 Respiratory Rate Blood Pressure Pulse Oximetry 02/07/18 03:00 02/07/18 04:00 02/07/18 05:00 Temperature Pulse Rate 78 81 77 Respiratory Rate 18 Blood Pressure 92/64 L Pulse Oximetry 92 L 02/07/18 05:15 02/07/18 06:00 02/07/18 07:00 Temperature 97.4 F L Pulse Rate 60 82 68 Respiratory Rate 16 18 Blood Pressure 102/65 Pulse Oximetry 96 02/07/18 07:29 02/07/18 08:00 02/07/18 09:00 Temperature Pulse Rate 70 88 78 Respiratory Rate 16 Blood Pressure Pulse Oximetry 95 96 02/07/18 10:00 02/07/18 11:00 02/07/18 12:00 Temperature 97.5 F L Pulse Rate 78 72 80 Respiratory Rate 16 Blood Pressure 91/58 L Pulse Oximetry 97 02/07/18 12:01 02/07/18 13:00 02/07/18 14:00 Temperature Pulse Rate 70 76 76 Respiratory Rate 16 Blood Pressure Pulse Oximetry 02/07/18 15:00 02/07/18 16:13 Temperature 97.5 F L Pulse Rate 77 76 Respiratory Rate 18 16 Blood Pressure 107/67 Pulse Oximetry 96 Intake & Output 02/06/18 02/07/18 02/07/18 18:59 06:59 18:59 Intake Total 960 / 960 240 / 240 Output Total 800 / 800 1800 / 1800 Balance 160 / 160 -1560 / -1560 Weight 105.4 kg Intake: Oral 960 / 960 240 / 240 Output: Urine 800 / 800 1800 / 1800 Other: Date of Last Bowel Movement 02/06/18 02/06/18 02/06/18 # Bowel Movements 1 - Constitutional no acute distress - Routine HEENT Exam Head: Present: normocephalic Eye: Present: EOMI, PERRL - Routine Respiratory Exam Present: CTA bilaterally - Routine Cardiovascular Exam Present: irregularly irregular - Routine Neurological Exam Present: alert, oriented X3 Results - Labs CBC & Chem 7: 02/06/18 05:27 02/07/18 05:10 Laboratory Results - last 24 hr 02/07/18 05:10 Sodium 134 L Potassium 4.9 Chloride 96 L Carbon Dioxide 28.2 Anion Gap 10 BUN 48 H Creatinine 1.91 H Estimated GFR 35 L Random Glucose 81 Calcium 8.4 L - Imaging Impressions Chest X-Ray 02/07/18 00:00 CONCLUSION: Slight improvement in aeration. Assessment and Plan - Assessment (1) Congestive heart failure Code(s): I50.9 - Heart failure, unspecified Status: Acute Plan: Patient stable Doing better NO SOB Eating Continue with current management Can be discharge whenever ok with the managing team I will be available on a PRN basis (2) Edema Code(s): R60.9 - Edema, unspecified Status: Acute - Plan Significantly improve (1) Congestive heart failure Qualifiers: Heart failure type: unspecified Heart failure chronicity: chronic Qualified Code(s): I50.9 - Heart failure, unspecified
--- NOTE | 2018-02-07 17:31 | P.PN ---
Subjective Interval history: Follow up for CHF, respiratory failure, ELOINA. Patient is resting in bed. No fever , chills. Tolerating diet well. Currently on 3L of O2 via NC. Physical Exam Vital signs: Vital Signs 02/06/18 18:00 02/06/18 19:00 02/06/18 20:00 Temperature 97.4 F L Pulse Rate 72 77 66 Respiratory Rate 20 Blood Pressure 110/71 Pulse Oximetry 95 02/06/18 20:04 02/06/18 21:00 02/06/18 22:00 Temperature Pulse Rate 69 75 74 Respiratory Rate 16 Blood Pressure Pulse Oximetry 92 L 02/06/18 23:00 02/06/18 23:20 02/06/18 23:45 Temperature Pulse Rate 69 62 Respiratory Rate 20 20 17 Blood Pressure 98/68 L Pulse Oximetry 97 02/07/18 00:00 02/07/18 01:00 02/07/18 02:00 Temperature Pulse Rate 65 75 77 Respiratory Rate Blood Pressure Pulse Oximetry 02/07/18 03:00 02/07/18 04:00 02/07/18 05:00 Temperature Pulse Rate 78 81 77 Respiratory Rate 18 Blood Pressure 92/64 L Pulse Oximetry 92 L 02/07/18 05:15 02/07/18 06:00 02/07/18 07:00 Temperature 97.4 F L Pulse Rate 60 82 68 Respiratory Rate 16 18 Blood Pressure 102/65 Pulse Oximetry 96 02/07/18 07:29 02/07/18 08:00 02/07/18 09:00 Temperature Pulse Rate 70 88 78 Respiratory Rate 16 Blood Pressure Pulse Oximetry 95 96 02/07/18 10:00 02/07/18 11:00 02/07/18 12:00 Temperature 97.5 F L Pulse Rate 78 72 80 Respiratory Rate 16 Blood Pressure 91/58 L Pulse Oximetry 97 02/07/18 12:01 02/07/18 13:00 02/07/18 14:00 Temperature Pulse Rate 70 76 76 Respiratory Rate 16 Blood Pressure Pulse Oximetry 02/07/18 15:00 02/07/18 16:13 Temperature 97.5 F L Pulse Rate 77 76 Respiratory Rate 18 16 Blood Pressure 107/67 Pulse Oximetry 96 Intake & Output 02/06/18 02/07/18 02/07/18 18:59 06:59 18:59 Intake Total 960 / 960 240 / 240 Output Total 800 / 800 1800 / 1800 Balance 160 / 160 -1560 / -1560 Weight 105.4 kg Intake: Oral 960 / 960 240 / 240 Output: Urine 800 / 800 1800 / 1800 Other: Date of Last Bowel Movement 02/06/18 02/06/18 02/06/18 # Bowel Movements 1 Narrative: GENERAL: Elderly male sitting up in bed in NAD. SKIN: Warm and dry. HEENT: Pupils equal and round. MMM. HEART: Reg and no Murmur, S1 S2 LUNGS: Distant breath sounds with occasional bibasilar crackles. ABDOMEN: Soft, NT, ND. EXTREMITIES: 2+ pitting edema to his proximal thighs though improved from yesterday. Scrotal edema. LUE edema. NEURO: Awake and alert. Moves all. Results - Labs CBC & Chem 7: 02/06/18 05:27 02/07/18 05:10 Laboratory Results - last 24 hr 02/07/18 05:10 Sodium 134 L Potassium 4.9 Chloride 96 L Carbon Dioxide 28.2 Anion Gap 10 BUN 48 H Creatinine 1.91 H Estimated GFR 35 L Random Glucose 81 Calcium 8.4 L - Imaging Impressions Chest X-Ray 02/07/18 00:00 CONCLUSION: Slight improvement in aeration. Assessment and Plan - Assessment (1) Acute worsening of stage 3 chronic kidney disease Code(s): N18.3 - Chronic kidney disease, stage 3 (moderate) Status: Acute (2) Congestive heart failure Code(s): I50.9 - Heart failure, unspecified Status: Acute (3) Edema Code(s): R60.9 - Edema, unspecified Status: Acute - Plan 72 year old male with history of diastolic CHF, atrial fibrillation, hypothyroidism, gout, and alcohol liver disease admitted on 01/27 for progressive LE swelling, shortness of breath, and RLE erythema, warmth, and swelling. He was initially admitted under critical care medicine for CHF exacerbation and combination septic-cardiogenic shock requiring pressors. 02/06: Still requiring 5L to maintain sats but otherwise no shortness of breath and patient remains stable. Transfer to floor. Continue diuresing. 1. Acute diastolic CHF exacerbation - 2D echo 02/02 showing normal LV size and wall thickness, LV EF 50-55%, elevated pulmonary arterial pressure, mildly dilated RA and RV - CXR 02/05 showing persistent cardiomegaly and patchy bilateral airspace disease - BNP 1708 on admission - Supplemental O2 - currently on 3L via NC. - Will consider switching from Lasix to Torsemide 20mg BID - Nephrology has started him on spironolactone - Cardiology cleared for discharge. 2. ELOINA on CKD - Nonoliguric - Nephrology following - Creatinine essentially the same, 1.9 - Avoid unnecessary nephrotoxic agents - Renally dose meds - Monitoring closely with diuresis 3. Acute on chronic respiratory insufficiency - Currently on 3L of O2 via NC - baseline for this patient. - CXR rechecked 02/05, stable cardiomegaly and patchy airspace disease - Pulm following - Supplemental O2 - DuoNeb Q4H scheduled - Albuterol PRN 4. RLE cellulitis - resolved - CT showed subcutaneous swelling c/w cellulitis, no signs of deep tissue abscess or necrotizing fascitis - Doppler US negative for DVT - ID was consulted earlier in hospitalization - Patient treated with combination of vanco, Zosyn, Clinda, and Zyvox - All antibiotics have been discontinued as his cellulitis resolved - ID has signed off 5. Chronic hyponatremia - At baseline - Continue to monitor 6. Atrial fibrillation - Diltiazem held as patient has been hypotensive - Remains rate-controlled - Not on any anticoagulation but follows with Dr. Paris as OP - Continue ASA 7. Hypothyroidism - TSH 3.730 - Continue home levothyroxine 8. Gout - Continue home allopurinol DVT prophylaxis: heparin SQ Will refer patient to [facility]. PT/OT consults. If accepted, will discharge patient to [place]. (2) Congestive heart failure Qualifiers: Qualified Code(s): I50.9 - Heart failure, unspecified
--- NOTE | 2018-02-07 18:49 | P.PN ---
Subjective Interval history: He is stable and Now on O2 3 L Good output and arm and leg edema is less Physical Exam Vital signs: Vital Signs 02/06/18 19:00 02/06/18 20:00 02/06/18 20:04 Temperature 97.4 F L Pulse Rate 77 66 69 Respiratory Rate 20 16 Blood Pressure 110/71 Pulse Oximetry 95 92 L 02/06/18 21:00 02/06/18 22:00 02/06/18 23:00 Temperature Pulse Rate 75 74 69 Respiratory Rate 20 Blood Pressure 98/68 L Pulse Oximetry 97 02/06/18 23:20 02/06/18 23:45 02/07/18 00:00 Temperature Pulse Rate 62 65 Respiratory Rate 20 17 Blood Pressure Pulse Oximetry 02/07/18 01:00 02/07/18 02:00 02/07/18 03:00 Temperature Pulse Rate 75 77 78 Respiratory Rate 18 Blood Pressure 92/64 L Pulse Oximetry 92 L 02/07/18 04:00 02/07/18 05:00 02/07/18 05:15 Temperature Pulse Rate 81 77 60 Respiratory Rate 16 Blood Pressure Pulse Oximetry 02/07/18 06:00 02/07/18 07:00 02/07/18 07:29 Temperature 97.4 F L Pulse Rate 82 68 70 Respiratory Rate 18 16 Blood Pressure 102/65 Pulse Oximetry 96 95 02/07/18 08:00 02/07/18 09:00 02/07/18 10:00 Temperature Pulse Rate 88 78 78 Respiratory Rate Blood Pressure Pulse Oximetry 96 02/07/18 11:00 02/07/18 12:00 02/07/18 12:01 Temperature 97.5 F L Pulse Rate 72 80 70 Respiratory Rate 16 16 Blood Pressure 91/58 L Pulse Oximetry 97 02/07/18 13:00 02/07/18 14:00 02/07/18 15:00 Temperature 97.5 F L Pulse Rate 76 76 70 Respiratory Rate 18 Blood Pressure 107/67 Pulse Oximetry 96 02/07/18 16:00 02/07/18 16:13 02/07/18 17:00 Temperature Pulse Rate 86 76 88 Respiratory Rate 16 Blood Pressure Pulse Oximetry 02/07/18 18:00 Temperature Pulse Rate 78 Respiratory Rate Blood Pressure Pulse Oximetry Intake & Output 02/06/18 02/07/18 02/07/18 18:59 06:59 18:59 Intake Total 960 / 960 240 / 240 520 / 520 Output Total 800 / 800 1800 / 1800 1325 / 1325 Balance 160 / 160 -1560 / -1560 -805 / -805 Weight 105.4 kg Intake: Oral 960 / 960 240 / 240 520 / 520 Output: Urine 800 / 800 1800 / 1800 1325 / 1325 Other: Date of Last Bowel Movement 02/06/18 02/06/18 02/06/18 # Bowel Movements 1 2 Narrative: GENERAL: Elderly male sitting up in bed in NAD. SKIN: Warm and dry. HEENT: Pupils equal and round. MMM. HEART: Reg and no Murmur, S1 S2 LUNGS: Distant breath sounds with occasional bibasilar crackles. ABDOMEN: Soft, NT, ND. EXTREMITIES: 2+ pitting edema to his proximal thighs though improved and arm edema Results - Labs CBC & Chem 7: 02/06/18 05:27 02/07/18 05:10 Laboratory Results - last 24 hr 02/07/18 05:10 Sodium 134 L Potassium 4.9 Chloride 96 L Carbon Dioxide 28.2 Anion Gap 10 BUN 48 H Creatinine 1.91 H Estimated GFR 35 L Random Glucose 81 Calcium 8.4 L - Imaging Impressions Chest X-Ray 02/07/18 00:00 CONCLUSION: Slight improvement in aeration. Assessment and Plan - Assessment (1) Edema Code(s): R60.9 - Edema, unspecified Status: Acute (2) Sepsis Code(s): A41.9 - Sepsis, unspecified organism Status: Acute (3) Cellulitis of leg, right Code(s): L03.115 - Cellulitis of right lower limb Status: Acute (4) Congestive heart failure Code(s): I50.9 - Heart failure, unspecified Status: Acute (5) Chronic kidney disease (CKD) stage G4/A1, severely decreased glomerular filtration rate (GFR) between 15-29 mL/min/1.73 square meter and albuminuria creatinine ratio less than 30 mg/g Code(s): N18.4 - Chronic kidney disease, stage 4 (severe) Status: Acute (6) Acute worsening of stage 3 chronic kidney disease Code(s): N18.3 - Chronic kidney disease, stage 3 (moderate) Status: Acute - Plan 3 1. Continue O2 at 3 L and wean to keep sat >92 2. Cont Nebs BID 3. Continue heparin 5000 U S/Q q8h 4. IS q2h bedside 5. To rehab soon. 6. Continue lasix 80 mg BID 7.Will Get F/U CXR in 2 weeks (2) Sepsis Qualifiers: Sepsis type: sepsis due to unspecified organism Qualified Code(s): A41.9 - Sepsis, unspecified organism (4) Congestive heart failure Qualifiers: Heart failure type: unspecified Heart failure chronicity: chronic Qualified Code(s): I50.9 - Heart failure, unspecified
[2018-02-07] MEDS: Allopurinol 300 MG Tablet PO SCH (20:40)
[2018-02-07] MEDS: Pantoprazole Inj 40 MG Vial IV.PUSH SCH (20:42)
[2018-02-08] MEDS: Heparin - SQ 10,000 UNITS/ML Vial SQ SCH ×3 (06:06→21:12)
[2018-02-08] MEDS: Levothyroxine 50 MCG Tablet PO SCH (06:06)
--- NOTE | 2018-02-08 08:34 | P.PNCA ---
Subjective Interval history: Feeling better. Arms still edematous. Physical Exam Vital signs: Vital Signs 02/07/18 09:00 02/07/18 10:00 02/07/18 11:00 Temperature 97.5 F L Pulse Rate 78 78 72 Respiratory Rate 16 Blood Pressure 91/58 L Pulse Oximetry 97 02/07/18 12:00 02/07/18 12:01 02/07/18 13:00 Temperature Pulse Rate 80 70 76 Respiratory Rate 16 Blood Pressure Pulse Oximetry 02/07/18 14:00 02/07/18 15:00 02/07/18 16:00 Temperature 97.5 F L Pulse Rate 76 70 86 Respiratory Rate 18 Blood Pressure 107/67 Pulse Oximetry 96 02/07/18 16:13 02/07/18 17:00 02/07/18 18:00 Temperature Pulse Rate 76 88 78 Respiratory Rate 16 Blood Pressure Pulse Oximetry 02/07/18 19:00 02/07/18 20:00 02/07/18 20:08 Temperature 97.7 F Pulse Rate 76 76 99 H Respiratory Rate 20 20 Blood Pressure 87/56 L Pulse Oximetry 94 L 02/07/18 21:00 02/07/18 22:00 02/07/18 22:28 Temperature Pulse Rate 86 81 Respiratory Rate 20 Blood Pressure Pulse Oximetry 02/07/18 23:00 02/07/18 23:34 02/08/18 00:00 Temperature 98.0 F Pulse Rate 74 69 78 Respiratory Rate 18 14 Blood Pressure 101/56 L Pulse Oximetry 74 L 90 L 02/08/18 01:00 02/08/18 02:00 02/08/18 03:00 Temperature 98.8 F Pulse Rate 82 79 78 Respiratory Rate 20 Blood Pressure 111/59 L Pulse Oximetry 98 02/08/18 03:50 02/08/18 05:00 02/08/18 06:00 Temperature Pulse Rate 75 75 93 H Respiratory Rate Blood Pressure Pulse Oximetry 02/08/18 07:00 Temperature 97.4 F L Pulse Rate 70 Respiratory Rate 15 Blood Pressure 102/64 Pulse Oximetry 95 Intake & Output 02/07/18 02/08/18 02/08/18 18:59 06:59 18:59 Intake Total 520 / 520 480 / 480 Output Total 1325 / 1325 1600 / 1600 Balance -805 / -805 -1120 / -1120 Weight 232 lb 2.348 oz Intake: Oral 520 / 520 480 / 480 Output: Urine 1325 / 1325 1600 / 1600 Other: Date of Last Bowel Movement 02/06/18 02/07/18 # Bowel Movements 2 Narrative: GENERAL: Well-developed, well-nourished, no acute distress. SKIN: Warm and dry. HEAD: Atraumatic. Normocephalic. EYES: Pupils equal and round. No scleral icterus. No injection or drainage. ENT: No nasal bleeding or discharge. Mucous membranes pink and moist. NECK: Trachea midline. No JVD. CARDIOVASCULAR: Regular rate and rhythm. RESPIRATORY: No accessory muscle use. Clear to auscultation. Breath sounds equal bilaterally. GASTROINTESTINAL: Abdomen soft, non-tender, nondistended. Hepatic and splenic margins not palpable. MUSCULOSKELETAL: Extremities without clubbing, cyanosis, 2+edema in upper extremities, minimal in RLE, none in LLE. No obvious deformities. NEUROLOGICAL: Awake and alert. No obvious cranial nerve deficits. Motor grossly within normal limits. PSYCHIATRIC: Appropriate mood and affect; insight and judgment normal. Assessment and Plan - Assessment (1) Congestive heart failure Code(s): I50.9 - Heart failure, unspecified Status: Acute Plan: Slowly improving. Continue current management per my discussion with Dr. Bass. (1) Congestive heart failure Qualifiers: Heart failure type: unspecified Heart failure chronicity: chronic Qualified Code(s): I50.9 - Heart failure, unspecified
[2018-02-08] MEDS: Spironolactone 50 MG Tablet PO SCH (10:29)
[2018-02-08] MEDS: Senna/Docusate Sodium 8.6/50 MG Tablet PO SCH (10:30)
[2018-02-08] MEDS: Polyethylene Glycol 3350 17 GM Packet PO SCH (10:31)
[2018-02-08] MEDS: Folic Acid 1 MG Tablet PO SCH (10:33)
[2018-02-08] MEDS: Furosemide 80 MG Tablet PO SCH ×2 (10:37→18:15)
--- NOTE | 2018-02-08 10:54 | P.PNNP ---
Subjective Interval history: patient is about the same. Lower extremity edema has improved. May be transferred to [facility]. Physical Exam Vital signs: Vital Signs 02/07/18 11:00 02/07/18 12:00 02/07/18 12:01 Temperature 97.5 F L Pulse Rate 72 80 70 Respiratory Rate 16 16 Blood Pressure 91/58 L Pulse Oximetry 97 02/07/18 13:00 02/07/18 14:00 02/07/18 15:00 Temperature 97.5 F L Pulse Rate 76 76 70 Respiratory Rate 18 Blood Pressure 107/67 Pulse Oximetry 96 02/07/18 16:00 02/07/18 16:13 02/07/18 17:00 Temperature Pulse Rate 86 76 88 Respiratory Rate 16 Blood Pressure Pulse Oximetry 02/07/18 18:00 02/07/18 19:00 02/07/18 20:00 Temperature 97.7 F Pulse Rate 78 76 76 Respiratory Rate 20 Blood Pressure 87/56 L Pulse Oximetry 94 L 02/07/18 20:08 02/07/18 21:00 02/07/18 22:00 Temperature Pulse Rate 99 H 86 81 Respiratory Rate 20 Blood Pressure Pulse Oximetry 02/07/18 22:28 02/07/18 23:00 02/07/18 23:34 Temperature 98.0 F Pulse Rate 74 69 Respiratory Rate 20 18 14 Blood Pressure 101/56 L Pulse Oximetry 74 L 90 L 02/08/18 00:00 02/08/18 01:00 02/08/18 02:00 Temperature Pulse Rate 78 82 79 Respiratory Rate Blood Pressure Pulse Oximetry 02/08/18 03:00 02/08/18 03:50 02/08/18 05:00 Temperature 98.8 F Pulse Rate 78 75 75 Respiratory Rate 20 Blood Pressure 111/59 L Pulse Oximetry 98 02/08/18 06:00 02/08/18 07:00 02/08/18 08:33 Temperature 97.4 F L Pulse Rate 93 H 70 80 Respiratory Rate 15 18 Blood Pressure 102/64 Pulse Oximetry 95 94 L Intake & Output 02/07/18 02/08/18 02/08/18 18:59 06:59 18:59 Intake Total 520 / 520 480 / 480 Output Total 1325 / 1325 1600 / 1600 Balance -805 / -805 -1120 / -1120 Weight 105.3 kg Intake: Oral 520 / 520 480 / 480 Output: Urine 1325 / 1325 1600 / 1600 Other: Date of Last Bowel Movement 02/06/18 02/07/18 # Bowel Movements 2 Narrative: GENERAL: Well-developed, well-nourished, no acute distress. SKIN: Warm and dry. HEAD: Atraumatic. Normocephalic. EYES: Pupils equal and round. No scleral icterus. No injection or drainage. ENT: No nasal bleeding or discharge. Mucous membranes pink and moist. NECK: Trachea midline. No JVD. CARDIOVASCULAR: Regular rate and rhythm. RESPIRATORY: No accessory muscle use. Clear to auscultation. Breath sounds equal bilaterally. GASTROINTESTINAL: Abdomen soft, non-tender, nondistended. Hepatic and splenic margins not palpable. MUSCULOSKELETAL: Extremities without clubbing, cyanosis, 2+edema in upper extremities, minimal in RLE, none in LLE. No obvious deformities. NEUROLOGICAL: Awake and alert. No obvious cranial nerve deficits. Motor grossly within normal limits. PSYCHIATRIC: Appropriate mood and affect; insight and judgment normal. Assessment and Plan - Assessment (1) Acute worsening of stage 3 chronic kidney disease Code(s): N18.3 - Chronic kidney disease, stage 3 (moderate) Status: Acute Plan: Non oliguric. Fluid retention is present. On Lasix 80 mg BID and Spironolactone to 50 mg PO daily. continue diuretics, Monitor urine output and renal function. Continue diuretics. Told to restrict fluid intake. (2) Sepsis Code(s): A41.9 - Sepsis, unspecified organism Status: Acute Qualifiers: Sepsis type: sepsis due to unspecified organism Qualified Code(s): A41.9 - Sepsis, unspecified organism (3) Cellulitis of leg, right Code(s): L03.115 - Cellulitis of right lower limb Status: Acute Plan: Improved, antibiotics have been stopped. (4) Congestive heart failure Code(s): I50.9 - Heart failure, unspecified Status: Acute Qualifiers: Heart failure type: unspecified Heart failure chronicity: chronic Qualified Code(s): I50.9 - Heart failure, unspecified Plan: continue diuretic. Cardiology note was reviewed.
[2018-02-08] MEDS ORDERED: Bisacodyl 10 MG Supp RECTAL PRN (12:09)
--- NOTE | 2018-02-08 12:25 | P.PN ---
Subjective Interval history: Follow up for CHF, respiratory failure, ELOINA. Patient is doing well. No acute concerns. No fever, chills. Physical Exam Vital signs: Vital Signs 02/07/18 13:00 02/07/18 14:00 02/07/18 15:00 Temperature 97.5 F L Pulse Rate 76 76 70 Respiratory Rate 18 Blood Pressure 107/67 Pulse Oximetry 96 02/07/18 16:00 02/07/18 16:13 02/07/18 17:00 Temperature Pulse Rate 86 76 88 Respiratory Rate 16 Blood Pressure Pulse Oximetry 02/07/18 18:00 02/07/18 19:00 02/07/18 20:00 Temperature 97.7 F Pulse Rate 78 76 76 Respiratory Rate 20 Blood Pressure 87/56 L Pulse Oximetry 94 L 02/07/18 20:08 02/07/18 21:00 02/07/18 22:00 Temperature Pulse Rate 99 H 86 81 Respiratory Rate 20 Blood Pressure Pulse Oximetry 02/07/18 22:28 02/07/18 23:00 02/07/18 23:34 Temperature 98.0 F Pulse Rate 74 69 Respiratory Rate 20 18 14 Blood Pressure 101/56 L Pulse Oximetry 74 L 90 L 02/08/18 00:00 02/08/18 01:00 02/08/18 02:00 Temperature Pulse Rate 78 82 79 Respiratory Rate Blood Pressure Pulse Oximetry 02/08/18 03:00 02/08/18 03:50 02/08/18 05:00 Temperature 98.8 F Pulse Rate 78 75 75 Respiratory Rate 20 Blood Pressure 111/59 L Pulse Oximetry 98 02/08/18 06:00 02/08/18 07:00 02/08/18 08:33 Temperature 97.4 F L Pulse Rate 93 H 70 80 Respiratory Rate 15 18 Blood Pressure 102/64 Pulse Oximetry 95 94 L 02/08/18 11:00 Temperature 97.4 F L Pulse Rate 80 Respiratory Rate 14 Blood Pressure 95/60 L Pulse Oximetry 91 L Intake & Output 02/07/18 02/08/18 02/08/18 18:59 06:59 18:59 Intake Total 520 / 520 480 / 480 Output Total 1325 / 1325 1600 / 1600 Balance -805 / -805 -1120 / -1120 Weight 105.3 kg Intake: Oral 520 / 520 480 / 480 Output: Urine 1325 / 1325 1600 / 1600 Other: Date of Last Bowel Movement 02/06/18 02/07/18 # Bowel Movements 2 Narrative: GENERAL: Well-developed, well-nourished, no acute distress. SKIN: Warm and dry. HEAD: Atraumatic. Normocephalic. EYES: Pupils equal and round. No scleral icterus. No injection or drainage. ENT: No nasal bleeding or discharge. Mucous membranes pink and moist. NECK: Trachea midline. No JVD. CARDIOVASCULAR: Regular rate and rhythm. RESPIRATORY: No accessory muscle use. Clear to auscultation. Breath sounds equal bilaterally. GASTROINTESTINAL: Abdomen soft, non-tender, nondistended. Hepatic and splenic margins not palpable. MUSCULOSKELETAL: Extremities without clubbing, cyanosis, 2+edema in upper extremities, minimal in RLE, none in LLE. No obvious deformities. NEUROLOGICAL: Awake and alert. No obvious cranial nerve deficits. Motor grossly within normal limits. PSYCHIATRIC: Appropriate mood and affect; insight and judgment normal. Results - Labs CBC & Chem 7: 02/06/18 05:27 02/07/18 05:10 Assessment and Plan - Assessment (1) Acute worsening of stage 3 chronic kidney disease Code(s): N18.3 - Chronic kidney disease, stage 3 (moderate) Status: Acute (2) Congestive heart failure Code(s): I50.9 - Heart failure, unspecified Status: Acute (3) Edema Code(s): R60.9 - Edema, unspecified Status: Acute - Plan 72 year old male with history of diastolic CHF, atrial fibrillation, hypothyroidism, gout, and alcohol liver disease admitted on 01/27 for progressive LE swelling, shortness of breath, and RLE erythema, warmth, and swelling. He was initially admitted under critical care medicine for CHF exacerbation and combination septic-cardiogenic shock requiring pressors. 02/06: Still requiring 5L to maintain sats but otherwise no shortness of breath and patient remains stable. Transfer to floor. Continue diuresing. Acute diastolic CHF exacerbation on Chronic diastolic CHF Moderate to severe Pulmonary hypertension - 2D echo 02/02 showing normal LV size and wall thickness, LV EF 50-55%, elevated pulmonary arterial pressure, mildly dilated RA and RV - CXR 02/05 showing persistent cardiomegaly and patchy bilateral airspace disease - BNP 1708 on admission - Supplemental O2 - currently on 3L via NC. - Will consider switching from Lasix to Torsemide 20mg BID - Nephrology has started him on spironolactone - Cardiology cleared for discharge. ELOINA on CKD - Nonoliguric - Nephrology following - Creatinine essentially the same, 1.9 - Avoid unnecessary nephrotoxic agents - Renally dose meds - Monitoring closely with diuresis Acute on chronic respiratory insufficiency - Currently on 3L of O2 via NC - baseline for this patient. - CXR rechecked 02/05, stable cardiomegaly and patchy airspace disease - Pulm following - Supplemental O2 - DuoNeb Q4H scheduled - Albuterol PRN RLE cellulitis - resolved - CT showed subcutaneous swelling c/w cellulitis, no signs of deep tissue abscess or necrotizing fascitis - Doppler US negative for DVT - ID was consulted earlier in hospitalization - Patient treated with combination of vanco, Zosyn, Clinda, and Zyvox - All antibiotics have been discontinued as his cellulitis resolved - ID has signed off Chronic hyponatremia - At baseline - Continue to monitor Atrial fibrillation - Diltiazem held as patient has been hypotensive - Remains rate-controlled - Not on any anticoagulation but follows with Dr. Paris as OP - Continue ASA Hypothyroidism - TSH 3.730 - Continue home levothyroxine DVT prophylaxis: heparin SQ Discharge plan: Waiting for placement. Hopefully [facility]. (2) Congestive heart failure Qualifiers: Heart failure type: unspecified Heart failure chronicity: chronic Qualified Code(s): I50.9 - Heart failure, unspecified
[2018-02-08] MEDS: Allopurinol 300 MG Tablet PO SCH (20:15)
[2018-02-08] MEDS: Pantoprazole Inj 40 MG Vial IV.PUSH SCH (20:15)
[2018-02-09] MEDS: Levothyroxine 50 MCG Tablet PO SCH (06:02)
[2018-02-09] MEDS: Heparin - SQ 10,000 UNITS/ML Vial SQ SCH ×2 (06:02→14:55)
[2018-02-09] MEDS: Folic Acid 1 MG Tablet PO SCH (08:34)
[2018-02-09] MEDS: Spironolactone 50 MG Tablet PO SCH (08:35)
[2018-02-09] MEDS: Ferrous Sulfate 325 MG Tablet PO SCH (08:47)
[2018-02-09] MEDS: Furosemide 80 MG Tablet PO SCH ×2 (08:58→17:43)
--- NOTE | 2018-02-09 10:22 | P.PNNP ---
Subjective Interval history: He continues to have penile and scrotal edema as well as lower extremity edema. Feels weak. Physical Exam Vital signs: Vital Signs 02/08/18 11:00 02/08/18 12:00 02/08/18 13:00 Temperature 97.4 F L Pulse Rate 76 80 82 Respiratory Rate 14 Blood Pressure 95/60 L Pulse Oximetry 91 L 02/08/18 14:00 02/08/18 15:00 02/08/18 16:00 Temperature 97.3 F L Pulse Rate 82 80 84 Respiratory Rate 18 Blood Pressure 119/80 Pulse Oximetry 94 L 02/08/18 17:00 02/08/18 18:00 02/08/18 19:00 Temperature 97.6 F Pulse Rate 80 76 78 Respiratory Rate 18 Blood Pressure 102/57 L Pulse Oximetry 94 L 02/08/18 19:22 02/08/18 20:00 02/08/18 21:00 Temperature Pulse Rate 87 72 69 Respiratory Rate 17 Blood Pressure Pulse Oximetry 94 L 94 L 02/08/18 22:00 02/08/18 22:57 02/08/18 23:00 Temperature 98.2 F Pulse Rate 70 75 80 Respiratory Rate 15 18 Blood Pressure 98/67 L Pulse Oximetry 92 L 02/09/18 00:00 02/09/18 01:00 02/09/18 02:00 Temperature Pulse Rate 74 81 87 Respiratory Rate Blood Pressure Pulse Oximetry 02/09/18 03:00 02/09/18 04:00 02/09/18 05:00 Temperature 97.7 F Pulse Rate 76 67 80 Respiratory Rate 16 Blood Pressure 95/58 L Pulse Oximetry 93 L 02/09/18 05:09 02/09/18 06:00 02/09/18 07:00 Temperature 97.2 F L Pulse Rate 82 80 Respiratory Rate 18 14 Blood Pressure 100/64 Pulse Oximetry 91 L Intake & Output 02/08/18 02/09/18 02/09/18 18:59 06:59 18:59 Intake Total 940 / 940 480 / 480 Output Total 1575 / 1575 1750 / 1750 Balance -635 / -635 -1270 / -1270 Weight 102.5 kg Intake: Oral 940 / 940 480 / 480 Output: Urine 1575 / 1575 1750 / 1750 Other: # Voids 4 Date of Last Bowel Movement 02/09/18 # Bowel Movements 2 Narrative: GENERAL: Well-developed, well-nourished, no acute distress. SKIN: Warm and dry. HEAD: Atraumatic. Normocephalic. EYES: Pupils equal and round. No scleral icterus. No injection or drainage. ENT: No nasal bleeding or discharge. Mucous membranes pink and moist. NECK: Trachea midline. No JVD. CARDIOVASCULAR: Regular rate and rhythm. RESPIRATORY: No accessory muscle use. Clear to auscultation. Breath sounds equal bilaterally. GASTROINTESTINAL: Abdomen soft, non-tender, nondistended. Hepatic and splenic margins not palpable. MUSCULOSKELETAL: Extremities without clubbing, cyanosis, 2+edema in upper extremities, Penile and scrotal edema. Assessment and Plan - Assessment (1) Acute worsening of stage 3 chronic kidney disease Code(s): N18.3 - Chronic kidney disease, stage 3 (moderate) Status: Acute Plan: Non oliguric. Fluid retention is present. On Lasix 80 mg BID and Spironolactone to 50 mg PO daily. continue diuretics, Monitor urine output and renal function. Continue diuretics. Told to restrict fluid intake. (2) Sepsis Code(s): A41.9 - Sepsis, unspecified organism Status: Acute Qualifiers: Sepsis type: sepsis due to unspecified organism Qualified Code(s): A41.9 - Sepsis, unspecified organism (3) Cellulitis of leg, right Code(s): L03.115 - Cellulitis of right lower limb Status: Acute Plan: Improved, antibiotics have been stopped. (4) Congestive heart failure Code(s): I50.9 - Heart failure, unspecified Status: Acute Qualifiers: Heart failure type: unspecified Heart failure chronicity: chronic Qualified Code(s): I50.9 - Heart failure, unspecified Plan: continue diuretic. Cardiology note was reviewed. - Plan Repeat labs.
[2018-02-09] MEDS: Allopurinol 300 MG Tablet PO SCH (20:27)
[2018-02-09] MEDS: Pantoprazole Inj 40 MG Vial IV.PUSH SCH (20:27)
--- NOTE | 2018-02-09 21:38 | P.PN ---
Subjective Interval history: Follow up for CHF, respiratory failure, ELOINA. Patient is currently doing well, no chest pain, shortness of breath, fever, chills. Physical Exam Vital signs: Vital Signs 02/08/18 22:00 02/08/18 22:57 02/08/18 23:00 Temperature 98.2 F Pulse Rate 70 75 80 Respiratory Rate 15 18 Blood Pressure 98/67 L Pulse Oximetry 92 L 02/09/18 00:00 02/09/18 01:00 02/09/18 02:00 Temperature Pulse Rate 74 81 87 Respiratory Rate Blood Pressure Pulse Oximetry 02/09/18 03:00 02/09/18 04:00 02/09/18 05:00 Temperature 97.7 F Pulse Rate 76 67 80 Respiratory Rate 16 Blood Pressure 95/58 L Pulse Oximetry 93 L 02/09/18 05:09 02/09/18 06:00 02/09/18 07:00 Temperature 97.2 F L Pulse Rate 82 82 Respiratory Rate 18 14 Blood Pressure 100/64 Pulse Oximetry 91 L 02/09/18 07:55 02/09/18 08:00 02/09/18 09:00 Temperature Pulse Rate 81 80 72 Respiratory Rate 18 Blood Pressure Pulse Oximetry 90 L 92 L 02/09/18 10:00 02/09/18 11:00 02/09/18 12:00 Temperature 97.2 F L Pulse Rate 74 72 80 Respiratory Rate 16 Blood Pressure 94/62 L Pulse Oximetry 93 L 02/09/18 13:00 02/09/18 14:00 02/09/18 15:00 Temperature Pulse Rate 75 77 100 H Respiratory Rate Blood Pressure Pulse Oximetry 02/09/18 15:04 02/09/18 16:00 02/09/18 16:09 Temperature Pulse Rate 93 H 90 89 Respiratory Rate 16 20 Blood Pressure 101/63 Pulse Oximetry 93 L 02/09/18 16:10 02/09/18 17:00 02/09/18 18:00 Temperature Pulse Rate 88 92 H Respiratory Rate Blood Pressure Pulse Oximetry 92 L 02/09/18 19:00 02/09/18 20:00 Temperature 97.9 F Pulse Rate 80 80 Respiratory Rate 18 Blood Pressure 104/70 Pulse Oximetry 95 Intake & Output 02/09/18 02/09/18 02/10/18 06:59 18:59 06:59 Intake Total 480 / 480 680 / 680 Output Total 1750 / 1750 950 / 950 Balance -1270 / -1270 -270 / -270 Weight 102.5 kg Intake: Oral 480 / 480 680 / 680 Output: Urine 1750 / 1750 950 / 950 Other: # Voids 4 Date of Last Bowel Movement 02/09/18 02/08/18 02/08/18 # Bowel Movements 2 Narrative: GENERAL: Well-developed, well-nourished, no acute distress. SKIN: Warm and dry. HEAD: Atraumatic. Normocephalic. EYES: Pupils equal and round. No scleral icterus. No injection or drainage. ENT: No nasal bleeding or discharge. Mucous membranes pink and moist. NECK: Trachea midline. No JVD. CARDIOVASCULAR: Regular rate and rhythm. RESPIRATORY: No accessory muscle use. Clear to auscultation. Breath sounds equal bilaterally. GASTROINTESTINAL: Abdomen soft, non-tender, nondistended. Hepatic and splenic margins not palpable. MUSCULOSKELETAL: Extremities without clubbing, cyanosis, 2+edema in upper extremities. Penile and scrotal edema. Results - Labs CBC & Chem 7: 02/06/18 05:27 02/10/18 05:31 Assessment and Plan - Assessment (1) Acute worsening of stage 3 chronic kidney disease Code(s): N18.3 - Chronic kidney disease, stage 3 (moderate) Status: Acute (2) Congestive heart failure Code(s): I50.9 - Heart failure, unspecified Status: Acute (3) Edema Code(s): R60.9 - Edema, unspecified Status: Acute - Plan 72 year old male with history of diastolic CHF, atrial fibrillation, hypothyroidism, gout, and alcohol liver disease admitted on 01/27 for progressive LE swelling, shortness of breath, and RLE erythema, warmth, and swelling. He was initially admitted under critical care medicine for CHF exacerbation and combination septic-cardiogenic shock requiring pressors. 02/06: Still requiring 5L to maintain sats but otherwise no shortness of breath and patient remains stable. Transfer to floor. Continue diuresing. Acute diastolic CHF exacerbation on Chronic diastolic CHF Moderate to severe Pulmonary hypertension - 2D echo 02/02 showing normal LV size and wall thickness, LV EF 50-55%, elevated pulmonary arterial pressure, mildly dilated RA and RV - CXR 02/05 showing persistent cardiomegaly and patchy bilateral airspace disease - BNP 1708 on admission - Supplemental O2 - currently on 3L via [place]. - Will consider switching from Lasix to Torsemide 20mg BID - Nephrology has started him on spironolactone - Cardiology cleared for discharge. ELOINA on CKD - Nonoliguric - Nephrology following - Creatinine essentially the same, 1.9 - Avoid unnecessary nephrotoxic agents - Renally dose meds - Monitoring closely with diuresis Acute on chronic respiratory insufficiency - Currently on 3L of O2 via NC - baseline for this patient. - CXR rechecked 02/05, stable cardiomegaly and patchy airspace disease - Pulm following - Supplemental O2 - DuoNeb Q4H scheduled - Albuterol PRN RLE cellulitis - resolved - CT showed subcutaneous swelling c/w cellulitis, no signs of deep tissue abscess or necrotizing fascitis - Doppler US negative for DVT - ID was consulted earlier in hospitalization - Patient treated with combination of vanco, Zosyn, Clinda, and Zyvox - All antibiotics have been discontinued as his cellulitis resolved - ID has signed off Chronic hyponatremia - At baseline - Continue to monitor Atrial fibrillation - Diltiazem held as patient has been hypotensive - Remains rate-controlled - Not on any anticoagulation but follows with Dr. Paris as OP - Continue ASA Hypothyroidism - TSH 3.730 - Continue home levothyroxine DVT prophylaxis: heparin SQ Discharge plan: Waiting for placement. [facility]. (2) Congestive heart failure Qualifiers: Heart failure type: unspecified Heart failure chronicity: chronic Qualified Code(s): I50.9 - Heart failure, unspecified
[2018-02-10] MEDS: Heparin - SQ 10,000 UNITS/ML Vial SQ SCH ×2 (04:47→14:37)
[2018-02-10 06:50] LABS: Calcium 8.8 mg/dL (8.5-10.1); Carbon Dioxide 31.7 meq/L (21.0-32.0); Phosphorus 4.8 mg/dL (2.5-4.9); Potassium 5.3 meq/L (3.5-5.1)
[2018-02-10] MEDS: Levothyroxine 50 MCG Tablet PO SCH (07:01)
--- NOTE | 2018-02-10 08:43 | P.PNNP ---
Subjective Interval history: continues to have penile edema, lower extremity edema. Diuresing well, negative fluid balance has been achieved. Possible discharge today. Physical Exam Vital signs: Vital Signs 02/09/18 09:00 02/09/18 10:00 02/09/18 11:00 Temperature 97.2 F L Pulse Rate 72 74 72 Respiratory Rate 16 Blood Pressure 94/62 L Pulse Oximetry 93 L 02/09/18 12:00 02/09/18 13:00 02/09/18 14:00 Temperature Pulse Rate 80 75 77 Respiratory Rate Blood Pressure Pulse Oximetry 02/09/18 15:00 02/09/18 15:04 02/09/18 16:00 Temperature Pulse Rate 100 H 93 H 90 Respiratory Rate 16 Blood Pressure 101/63 Pulse Oximetry 93 L 02/09/18 16:09 02/09/18 16:10 02/09/18 17:00 Temperature Pulse Rate 89 88 Respiratory Rate 20 Blood Pressure Pulse Oximetry 92 L 02/09/18 18:00 02/09/18 19:00 02/09/18 20:00 Temperature 97.9 F Pulse Rate 92 H 80 78 Respiratory Rate 18 Blood Pressure 104/70 Pulse Oximetry 95 02/09/18 21:00 02/09/18 22:00 02/09/18 23:00 Temperature Pulse Rate 72 72 70 Respiratory Rate Blood Pressure Pulse Oximetry 02/09/18 23:06 02/09/18 23:12 02/10/18 00:00 Temperature 98.6 F Pulse Rate 78 64 Respiratory Rate 18 18 Blood Pressure 90/60 L Pulse Oximetry 91 L 93 L 02/10/18 01:00 02/10/18 02:00 02/10/18 03:00 Temperature Pulse Rate 68 72 84 Respiratory Rate Blood Pressure Pulse Oximetry 02/10/18 04:00 02/10/18 05:00 02/10/18 06:00 Temperature 97.8 F Pulse Rate 84 70 71 Respiratory Rate 18 Blood Pressure 90/65 L Pulse Oximetry 98 02/10/18 07:00 02/10/18 08:15 Temperature 98 F Pulse Rate 77 69 Respiratory Rate 17 18 Blood Pressure 85/55 L Pulse Oximetry 95 95 Intake & Output 02/09/18 02/10/18 02/10/18 18:59 06:59 18:59 Intake Total 680 / 680 200 / 200 Output Total 950 / 950 2185 / 2185 Balance -270 / -270 -1984 / -1984 Weight 99 kg Intake: Oral 680 / 680 200 / 200 Output: Urine 950 / 950 2185 / 2185 Other: Date of Last Bowel Movement 02/08/18 02/08/18 Narrative: GENERAL: Well-developed, frail, weak appearing. SKIN: Warm and dry. HEAD: Atraumatic. Normocephalic. EYES: Pupils equal and round. No scleral icterus. No injection or drainage. ENT: No nasal bleeding or discharge. Mucous membranes pink and moist. NECK: Trachea midline. No JVD. CARDIOVASCULAR: Regular rate and rhythm. RESPIRATORY: No accessory muscle use. Clear to auscultation. Breath sounds equal bilaterally. GASTROINTESTINAL: Abdomen soft, non-tender, nondistended. Hepatic and splenic margins not palpable. MUSCULOSKELETAL: Extremities without clubbing, cyanosis, 2+edema in upper extremities, Penile and scrotal edema. Assessment and Plan - Assessment (1) Acute worsening of stage 3 chronic kidney disease Code(s): N18.3 - Chronic kidney disease, stage 3 (moderate) Status: Acute Plan: Stage III to IV CKD. Non oliguric. Fluid retention is present. On Lasix 80 mg BID and Spironolactone to 50 mg PO daily. continue diuretics, Monitor urine output and renal function. Continue diuretics. Told to restrict fluid intake. (2) Sepsis Code(s): A41.9 - Sepsis, unspecified organism Status: Acute Qualifiers: Sepsis type: sepsis due to unspecified organism Qualified Code(s): A41.9 - Sepsis, unspecified organism (3) Cellulitis of leg, right Code(s): L03.115 - Cellulitis of right lower limb Status: Acute Plan: Improved, antibiotics have been stopped. (4) Congestive heart failure Code(s): I50.9 - Heart failure, unspecified Status: Acute Qualifiers: Heart failure type: unspecified Heart failure chronicity: chronic Qualified Code(s): I50.9 - Heart failure, unspecified Plan: continue diuretic. Cardiology note was reviewed. - Plan Repeat labs.
[2018-02-10] MEDS: Furosemide 80 MG Tablet PO SCH (09:02)
[2018-02-10] MEDS: Folic Acid 1 MG Tablet PO SCH (09:02)
[2018-02-10] MEDS: Spironolactone 50 MG Tablet PO SCH (09:07)
--- NOTE | 2018-02-10 10:20 | P.PN ---
Subjective Interval history: Follow up for CHF, respiratory failure, ELOINA. Patient is doing well. However, later he complained about scrotal/penile edema and pain. No fever, chills. Physical Exam Vital signs: Vital Signs 02/09/18 11:00 02/09/18 12:00 02/09/18 13:00 Temperature 97.2 F L Pulse Rate 72 80 75 Respiratory Rate 16 Blood Pressure 94/62 L Pulse Oximetry 93 L 02/09/18 14:00 02/09/18 15:00 02/09/18 15:04 Temperature Pulse Rate 77 100 H 93 H Respiratory Rate 16 Blood Pressure 101/63 Pulse Oximetry 93 L 02/09/18 16:00 02/09/18 16:09 02/09/18 16:10 Temperature Pulse Rate 90 89 Respiratory Rate 20 Blood Pressure Pulse Oximetry 92 L 02/09/18 17:00 02/09/18 18:00 02/09/18 19:00 Temperature Pulse Rate 88 92 H 80 Respiratory Rate Blood Pressure Pulse Oximetry 02/09/18 20:00 02/09/18 21:00 02/09/18 22:00 Temperature 97.9 F Pulse Rate 78 72 72 Respiratory Rate 18 Blood Pressure 104/70 Pulse Oximetry 95 02/09/18 23:00 02/09/18 23:06 02/09/18 23:12 Temperature Pulse Rate 70 78 Respiratory Rate 18 Blood Pressure Pulse Oximetry 91 L 02/10/18 00:00 02/10/18 01:00 02/10/18 02:00 Temperature 98.6 F Pulse Rate 64 68 72 Respiratory Rate 18 Blood Pressure 90/60 L Pulse Oximetry 93 L 02/10/18 03:00 02/10/18 04:00 02/10/18 05:00 Temperature 97.8 F Pulse Rate 84 84 70 Respiratory Rate 18 Blood Pressure 90/65 L Pulse Oximetry 98 02/10/18 06:00 02/10/18 07:00 02/10/18 08:15 Temperature 98 F Pulse Rate 71 77 69 Respiratory Rate 17 18 Blood Pressure 85/55 L Pulse Oximetry 95 95 Intake & Output 02/09/18 02/10/18 02/10/18 18:59 06:59 18:59 Intake Total 680 / 680 200 / 200 Output Total 950 / 950 2185 / 2185 Balance -270 / -270 -1984 / -1985 Weight 99 kg Intake: Oral 680 / 680 200 / 200 Output: Urine 950 / 950 2185 / 2185 Other: Date of Last Bowel Movement 02/08/18 02/08/18 Narrative: GENERAL: Well-developed, well-nourished, no acute distress. SKIN: Warm and dry. HEAD: Atraumatic. Normocephalic. EYES: Pupils equal and round. No scleral icterus. No injection or drainage. ENT: No nasal bleeding or discharge. Mucous membranes pink and moist. NECK: Trachea midline. No JVD. CARDIOVASCULAR: Regular rate and rhythm. RESPIRATORY: No accessory muscle use. Clear to auscultation. Breath sounds equal bilaterally. GASTROINTESTINAL: Abdomen soft, non-tender, nondistended. Hepatic and splenic margins not palpable. MUSCULOSKELETAL: Extremities without clubbing, cyanosis, 2+edema in upper extremities. Penile and scrotal edema. Results - Labs CBC & Chem 7: 02/06/18 05:27 02/10/18 05:31 Laboratory Results - last 24 hr 02/10/18 05:31 Sodium 131 L Potassium 5.3 H Chloride 91 L Carbon Dioxide 31.7 Anion Gap 8 BUN 58 H Creatinine 2.24 H Estimated GFR 29 L Random Glucose 75 Calcium 8.8 Phosphorus 4.8 Albumin 2.0 L Assessment and Plan - Assessment (1) Acute worsening of stage 3 chronic kidney disease Code(s): N18.3 - Chronic kidney disease, stage 3 (moderate) Status: Acute (2) Congestive heart failure Code(s): I50.9 - Heart failure, unspecified Status: Acute (3) Edema Code(s): R60.9 - Edema, unspecified Status: Acute - Plan 72 year old male with history of diastolic CHF, atrial fibrillation, hypothyroidism, gout, and alcohol liver disease admitted on 01/27 for progressive LE swelling, shortness of breath, and RLE erythema, warmth, and swelling. He was initially admitted under critical care medicine for CHF exacerbation and combination septic-cardiogenic shock requiring pressors. Acute diastolic CHF exacerbation on Chronic diastolic CHF Moderate to severe Pulmonary hypertension - 2D echo 02/02 showing normal LV size and wall thickness, LV EF 50-55%, elevated pulmonary arterial pressure, mildly dilated RA and RV - CXR 02/05 showing persistent cardiomegaly and patchy bilateral airspace disease - BNP 1708 on admission - Supplemental O2 - currently on 3L via [place]. - Will consider switching from Lasix to Torsemide 20mg BID - Nephrology has started him on spironolactone - Cardiology cleared for discharge. Nephrology (Dr. Randle) also is okay with discharge. Scrotal/Penile edema - Related to CHF. Difficult to provide good dieresis due to low BP. - May need midodrine to support BP. ELOINA on CKD - Nephrology following - Creatinine essentially the same, 1.9 - Avoid unnecessary nephrotoxic agents - Renally dose meds - Monitoring closely with diuresis Acute on chronic respiratory insufficiency - Currently on 3L of O2 via [place] - baseline for this patient. - CXR rechecked 02/05, stable cardiomegaly and patchy airspace disease - Pulm following - Supplemental O2 - DuoNeb Q4H scheduled - Albuterol PRN RLE cellulitis - resolved - CT showed subcutaneous swelling c/w cellulitis, no signs of deep tissue abscess or necrotizing fascitis - Doppler US negative for DVT - ID was consulted earlier in hospitalization - Patient treated with combination of vanco, Zosyn, Clinda, and Zyvox - All antibiotics have been discontinued as his cellulitis resolved - ID has signed off Chronic hyponatremia - At baseline - Continue to monitor Atrial fibrillation - Diltiazem held as patient has been hypotensive - Remains rate-controlled - Not on any anticoagulation but follows with Dr. Paris as OP - Continue ASA Hypothyroidism - TSH 3.730 - Continue home levothyroxine DVT prophylaxis: heparin SQ (2) Congestive heart failure Qualifiers: Heart failure type: unspecified Heart failure chronicity: chronic Qualified Code(s): I50.9 - Heart failure, unspecified
[2018-02-10] MEDS ORDERED: Torsemide 20 MG Tablet PO ONE (12:00)
[2018-02-10] MEDS ORDERED: Sodium Polystyrene Sulfonate/Sorbitol Liq 15 GM/60 ML UDC PO ONE (12:54)
--- NOTE | 2018-02-10 13:15 | P.PN ---
Subjective Interval history: Seems better and on O2 3 L. Still has edema of legs and arms. No Fever. Physical Exam Vital signs: Vital Signs 02/09/18 14:00 02/09/18 15:00 02/09/18 15:04 Temperature Pulse Rate 77 100 H 93 H Respiratory Rate 16 Blood Pressure 101/63 Pulse Oximetry 93 L 02/09/18 16:00 02/09/18 16:09 02/09/18 16:10 Temperature Pulse Rate 90 89 Respiratory Rate 20 Blood Pressure Pulse Oximetry 92 L 02/09/18 17:00 02/09/18 18:00 02/09/18 19:00 Temperature Pulse Rate 88 92 H 80 Respiratory Rate Blood Pressure Pulse Oximetry 02/09/18 20:00 02/09/18 21:00 02/09/18 22:00 Temperature 97.9 F Pulse Rate 78 72 72 Respiratory Rate 18 Blood Pressure 104/70 Pulse Oximetry 95 02/09/18 23:00 02/09/18 23:06 02/09/18 23:12 Temperature Pulse Rate 70 78 Respiratory Rate 18 Blood Pressure Pulse Oximetry 91 L 02/10/18 00:00 02/10/18 01:00 02/10/18 02:00 Temperature 98.6 F Pulse Rate 64 68 72 Respiratory Rate 18 Blood Pressure 90/60 L Pulse Oximetry 93 L 02/10/18 03:00 02/10/18 04:00 02/10/18 05:00 Temperature 97.8 F Pulse Rate 84 84 70 Respiratory Rate 18 Blood Pressure 90/65 L Pulse Oximetry 98 02/10/18 06:00 02/10/18 07:00 02/10/18 08:00 Temperature 98 F Pulse Rate 71 77 74 Respiratory Rate 17 Blood Pressure 85/55 L Pulse Oximetry 95 02/10/18 08:15 02/10/18 09:00 02/10/18 10:00 Temperature Pulse Rate 69 84 74 Respiratory Rate 18 Blood Pressure Pulse Oximetry 95 02/10/18 11:00 02/10/18 11:01 02/10/18 12:28 Temperature 97.9 F Pulse Rate 74 83 77 Respiratory Rate 17 Blood Pressure 109/71 Pulse Oximetry 95 Intake & Output 02/09/18 02/10/18 02/10/18 18:59 06:59 18:59 Intake Total 680 / 680 200 / 200 Output Total 950 / 950 2185 / 2185 Balance -270 / -270 -1984 / Weight 99 kg Intake: Oral 680 / 680 200 / 200 Output: Urine 950 / 950 218 / 218 Other: Date of Last Bowel Movement 02/08/18 02/08/18 Narrative: GENERAL: Well-developed, well-nourished, no distress. SKIN: Warm and dry. HEAD: Atraumatic. Normocephalic. EYES: Pupils equal and round. No scleral icterus. No injection or drainage. ENT: No nasal bleeding or discharge. Mucous membranes pink and moist. NECK: Trachea midline. No JVD. CARDIOVASCULAR: Regular rate and rhythm. No Murmur RESPIRATORY: Occ Basal crackles and Breath sounds equal bilaterally. GASTROINTESTINAL: Abdomen soft, non-tender, nondistended. Hepatic and splenic margins not palpable. MUSCULOSKELETAL: Extremities without clubbing, cyanosis, 2+edema in upper extremities. and 1 + of legs . + Penile and scrotal edema. Results - Labs CBC & Chem 7: 02/06/18 05:27 02/10/18 05:31 Laboratory Results - last 24 hr 02/10/18 05:31 Sodium 131 L Potassium 5.3 H Chloride 91 L Carbon Dioxide 31.7 Anion Gap 8 BUN 58 H Creatinine 2.24 H Estimated GFR 29 L Random Glucose 75 Calcium 8.8 Phosphorus 4.8 Albumin 2.0 L Assessment and Plan - Assessment (1) Edema Code(s): R60.9 - Edema, unspecified Status: Acute (2) Sepsis Code(s): A41.9 - Sepsis, unspecified organism Status: Acute (3) Cellulitis of leg, right Code(s): L03.115 - Cellulitis of right lower limb Status: Acute (4) Congestive heart failure Code(s): I50.9 - Heart failure, unspecified Status: Acute (5) Chronic kidney disease (CKD) stage G4/A1, severely decreased glomerular filtration rate (GFR) between 15-29 mL/min/1.73 square meter and albuminuria creatinine ratio less than 30 mg/g Code(s): N18.4 - Chronic kidney disease, stage 4 (severe) Status: Acute (6) Acute worsening of stage 3 chronic kidney disease Code(s): N18.3 - Chronic kidney disease, stage 3 (moderate) Status: Acute - Plan 3 1. Continue O2 at 4 L and wean to keep sat >92 2. Cont Duo Nebs BID 3. Continue heparin 5000 U S/Q q8h 4. IS q2h bedside 5. To rehab soon. 6. Continue lasix 80 mg BID 7. CBC,BMP. (2) Sepsis Qualifiers: Sepsis type: sepsis due to unspecified organism Qualified Code(s): A41.9 - Sepsis, unspecified organism (4) Congestive heart failure Qualifiers: Heart failure type: unspecified Heart failure chronicity: chronic Qualified Code(s): I50.9 - Heart failure, unspecified
[2018-02-10] MEDS: Torsemide 20 MG Tablet PO SCH (18:16)
[2018-02-10] MEDS: Allopurinol 300 MG Tablet PO SCH (21:24)
[2018-02-10] MEDS: Pantoprazole Inj 40 MG Vial IV.PUSH SCH (21:24)
[2018-02-11] MEDS: Heparin - SQ 10,000 UNITS/ML Vial SQ SCH ×2 (03:40→15:13)
[2018-02-11] MEDS: Levothyroxine 50 MCG Tablet PO SCH (05:59)
[2018-02-11] MEDS: Folic Acid 1 MG Tablet PO SCH (09:14)
[2018-02-11] MEDS: Spironolactone 50 MG Tablet PO SCH (09:14)
[2018-02-11] MEDS: Ferrous Sulfate 325 MG Tablet PO SCH (09:18)
[2018-02-11] MEDS: Torsemide 20 MG Tablet PO SCH ×2 (09:18→17:06)
--- NOTE | 2018-02-11 16:51 | P.PNNP ---
Subjective Interval history: No change in his overall status. Patient is sleeping comfortably. Physical Exam Vital signs: Vital Signs 02/10/18 17:03 02/10/18 18:13 02/10/18 18:19 Temperature Pulse Rate 67 71 Respiratory Rate Blood Pressure 94/58 L Pulse Oximetry 02/10/18 19:00 02/10/18 20:00 02/10/18 20:16 Temperature 98 F Pulse Rate 67 61 67 Respiratory Rate 20 Blood Pressure 92/52 L Pulse Oximetry 94 L 96 02/10/18 21:00 02/10/18 22:00 02/10/18 23:00 Temperature 98 F Pulse Rate 63 67 79 Respiratory Rate 20 Blood Pressure 104/65 Pulse Oximetry 96 02/10/18 23:35 02/11/18 00:00 02/11/18 01:00 Temperature Pulse Rate 66 69 76 Respiratory Rate 20 Blood Pressure Pulse Oximetry 92 L 02/11/18 02:00 02/11/18 03:00 02/11/18 03:44 Temperature 98 F Pulse Rate 65 66 79 Respiratory Rate 20 Blood Pressure 94/63 L Pulse Oximetry 96 02/11/18 04:00 02/11/18 05:00 02/11/18 06:00 Temperature Pulse Rate 72 65 72 Respiratory Rate Blood Pressure Pulse Oximetry 02/11/18 07:00 02/11/18 08:00 02/11/18 08:38 Temperature 97.8 F Pulse Rate 70 74 67 Respiratory Rate 18 18 Blood Pressure 105/69 Pulse Oximetry 95 94 L 02/11/18 09:00 02/11/18 10:00 02/11/18 11:00 Temperature 98.2 F Pulse Rate 72 76 77 Respiratory Rate 16 Blood Pressure 91/62 L Pulse Oximetry 95 02/11/18 12:00 02/11/18 13:00 02/11/18 14:00 Temperature Pulse Rate 76 72 66 Respiratory Rate Blood Pressure Pulse Oximetry 02/11/18 15:00 02/11/18 16:00 02/11/18 16:41 Temperature 97.7 F Pulse Rate 62 66 87 Respiratory Rate 16 18 Blood Pressure 94/60 L Pulse Oximetry 93 L Intake & Output 02/10/18 02/11/18 02/11/18 18:59 06:59 18:59 Intake Total 480 / 480 480 / 480 Output Total 2024 / 2024 1850 / 1850 Balance -1545 / -1545 -1370 / -1370 Weight 96 kg Intake: Oral 480 / 480 480 / 480 Output: Urine 2024 Other: Date of Last Bowel Movement 02/10/18 02/10/18 Narrative: GENERAL: Well-developed, frail, elderly. SKIN: Warm and dry. HEAD: Atraumatic. Normocephalic. EYES: Pupils equal and round. No scleral icterus. No injection or drainage. ENT: No nasal bleeding or discharge. Mucous membranes pink and moist. NECK: Trachea midline. No JVD. CARDIOVASCULAR: Regular rate and rhythm. No Murmur RESPIRATORY: Occ Basal crackles and Breath sounds equal bilaterally. GASTROINTESTINAL: Abdomen soft, non-tender, nondistended. Hepatic and splenic margins not palpable. MUSCULOSKELETAL: Extremities without clubbing, cyanosis, 2+edema in upper extremities. and 1 + of legs . + Penile and scrotal edema. Assessment and Plan - Assessment (1) Acute worsening of stage 3 chronic kidney disease Code(s): N18.3 - Chronic kidney disease, stage 3 (moderate) Status: Acute Plan: Stage III to IV CKD. Non oliguric. Fluid retention is present. On Lasix 80 mg BID and Spironolactone to 50 mg PO daily. continue diuretics, Monitor urine output and renal function. Continue diuretics Prognosis is poor. (2) Sepsis Code(s): A41.9 - Sepsis, unspecified organism Status: Acute Qualifiers: Sepsis type: sepsis due to unspecified organism Qualified Code(s): A41.9 - Sepsis, unspecified organism (3) Cellulitis of leg, right Code(s): L03.115 - Cellulitis of right lower limb Status: Acute Plan: Improved, antibiotics have been stopped. (4) Congestive heart failure Code(s): I50.9 - Heart failure, unspecified Status: Acute Qualifiers: Heart failure type: unspecified Heart failure chronicity: chronic Qualified Code(s): I50.9 - Heart failure, unspecified Plan: continue diuretic. - Plan Repeat labs tomorrow.
--- NOTE | 2018-02-11 16:56 | P.PN ---
Subjective Interval history: Follow up for CHF, respiratory failure, ELOINA. Patient is currently doing well. No acute concerns. No chest pain, shortness of breath, fever or chills. He is on nasal cannula. [facility] ([facility]) is evaluating patient. Physical Exam Vital signs: Vital Signs 02/10/18 17:03 02/10/18 18:13 02/10/18 18:19 Temperature Pulse Rate 67 71 Respiratory Rate Blood Pressure 94/58 L Pulse Oximetry 02/10/18 19:00 02/10/18 20:00 02/10/18 20:16 Temperature 98 F Pulse Rate 67 61 67 Respiratory Rate 20 Blood Pressure 92/52 L Pulse Oximetry 94 L 96 02/10/18 21:00 02/10/18 22:00 02/10/18 23:00 Temperature 98 F Pulse Rate 63 67 79 Respiratory Rate 20 Blood Pressure 104/65 Pulse Oximetry 96 02/10/18 23:35 02/11/18 00:00 02/11/18 01:00 Temperature Pulse Rate 66 69 76 Respiratory Rate 20 Blood Pressure Pulse Oximetry 92 L 02/11/18 02:00 02/11/18 03:00 02/11/18 03:44 Temperature 98 F Pulse Rate 65 66 79 Respiratory Rate 20 Blood Pressure 94/63 L Pulse Oximetry 96 02/11/18 04:00 02/11/18 05:00 02/11/18 06:00 Temperature Pulse Rate 72 65 72 Respiratory Rate Blood Pressure Pulse Oximetry 02/11/18 07:00 02/11/18 08:00 02/11/18 08:38 Temperature 97.8 F Pulse Rate 70 74 67 Respiratory Rate 18 18 Blood Pressure 105/69 Pulse Oximetry 95 94 L 02/11/18 09:00 02/11/18 10:00 02/11/18 11:00 Temperature 98.2 F Pulse Rate 72 76 77 Respiratory Rate 16 Blood Pressure 91/62 L Pulse Oximetry 95 02/11/18 12:00 02/11/18 13:00 02/11/18 14:00 Temperature Pulse Rate 76 72 66 Respiratory Rate Blood Pressure Pulse Oximetry 02/11/18 15:00 02/11/18 16:00 02/11/18 16:41 Temperature 97.7 F Pulse Rate 62 66 87 Respiratory Rate 16 18 Blood Pressure 94/60 L Pulse Oximetry 93 L Intake & Output 02/10/18 02/11/18 02/11/18 18:59 06:59 18:59 Intake Total 480 / 480 480 / 480 Output Total 2024 1850 / 185 Balance -1545 / -1545 -1370 / -1370 Weight 96 kg Intake: Oral 480 / 480 480 / 480 Output: Urine 2024 1850 / 1850 Other: Date of Last Bowel Movement 02/10/18 02/10/18 Narrative: GENERAL: Well-developed, frail, elderly. SKIN: Warm and dry. HEAD: Atraumatic. Normocephalic. EYES: Pupils equal and round. No scleral icterus. No injection or drainage. ENT: No nasal bleeding or discharge. Mucous membranes pink and moist. NECK: Trachea midline. No JVD. CARDIOVASCULAR: Regular rate and rhythm. No Murmur RESPIRATORY: Occ Basal crackles and Breath sounds equal bilaterally. GASTROINTESTINAL: Abdomen soft, non-tender, nondistended. Hepatic and splenic margins not palpable. MUSCULOSKELETAL: Extremities without clubbing, cyanosis, 2+edema in upper extremities. and 1 + of legs . + Penile and scrotal edema. Results - Labs CBC & Chem 7: 02/06/18 05:27 02/10/18 05:31 Assessment and Plan - Assessment (1) Acute worsening of stage 3 chronic kidney disease Code(s): N18.3 - Chronic kidney disease, stage 3 (moderate) Status: Acute (2) Congestive heart failure Code(s): I50.9 - Heart failure, unspecified Status: Acute (3) Edema Code(s): R60.9 - Edema, unspecified Status: Acute - Plan 72 year old male with history of diastolic CHF, atrial fibrillation, hypothyroidism, gout, and alcohol liver disease admitted on 01/27 for progressive LE swelling, shortness of breath, and RLE erythema, warmth, and swelling. He was initially admitted under critical care medicine for CHF exacerbation and combination septic-cardiogenic shock requiring pressors. Acute diastolic CHF exacerbation on Chronic diastolic CHF Moderate to severe Pulmonary hypertension - 2D echo 02/02 showing normal LV size and wall thickness, LV EF 50-55%, elevated pulmonary arterial pressure, mildly dilated RA and RV - CXR 02/05 showing persistent cardiomegaly and patchy bilateral airspace disease - BNP 1708 on admission - Supplemental O2 - currently on 3L via NC. - Will consider switching from Lasix to Torsemide 20mg BID - Nephrology has started him on spironolactone - Cardiology cleared for discharge. Nephrology (Dr. Randle) also is okay with discharge. Scrotal/Penile edema - Related to CHF. Difficult to provide good dieresis due to low BP. - May need midodrine to support BP. ELOINA on CKD - Nephrology following - Creatinine essentially the same, 1.9 - Avoid unnecessary nephrotoxic agents - Renally dose meds - Monitoring closely with diuresis Acute on chronic respiratory insufficiency - Currently on 3L of O2 via NC - baseline for this patient. - CXR rechecked 02/05, stable cardiomegaly and patchy airspace disease - Pulm following - Supplemental O2 - DuoNeb Q4H scheduled - Albuterol PRN RLE cellulitis - resolved - CT showed subcutaneous swelling c/w cellulitis, no signs of deep tissue abscess or necrotizing fascitis - Doppler US negative for DVT - ID was consulted earlier in hospitalization - Patient treated with combination of vanco, Zosyn, Clinda, and Zyvox - All antibiotics have been discontinued as his cellulitis resolved - ID has signed off Chronic hyponatremia - At baseline - Continue to monitor Atrial fibrillation - Diltiazem held as patient has been hypotensive - Remains rate-controlled - Not on any anticoagulation but follows with Dr. Paris as OP - Continue ASA Hypothyroidism - TSH 3.730 - Continue home levothyroxine DVT prophylaxis: heparin SQ 02/11/2018: Discussed with family preservation caseworker. [facility] is evaluating patient for inpatient rehab placement. (2) Congestive heart failure Qualifiers: Heart failure type: unspecified Heart failure chronicity: chronic Qualified Code(s): I50.9 - Heart failure, unspecified
[2018-02-11] MEDS: Pantoprazole Inj 40 MG Vial IV.PUSH SCH (20:37)
[2018-02-11] MEDS: Allopurinol 300 MG Tablet PO SCH (20:38)
[2018-02-12] MEDS: Heparin - SQ 10,000 UNITS/ML Vial SQ SCH (03:47)
[2018-02-12 05:36] LABS: Albumin 1.9 g/dL (3.4-5.0); Calcium 8.1 mg/dL (8.5-10.1); Carbon Dioxide 35.1 meq/L (21.0-32.0); Phosphorus 4.8 mg/dL (2.5-4.9); Potassium 4.8 meq/L (3.5-5.1)
[2018-02-12] MEDS: Levothyroxine 50 MCG Tablet PO SCH (06:14)
--- NOTE | 2018-02-12 09:42 | P.PNNP ---
Subjective Interval history: Renal function is worsening. Hyperkalemia noted yesterday, but improved today. Patient reports edema has improved. Physical Exam Vital signs: Vital Signs 02/11/18 10:00 02/11/18 11:00 02/11/18 12:00 Temperature 98.2 F Pulse Rate 76 77 76 Respiratory Rate 16 Blood Pressure 91/62 L Pulse Oximetry 95 02/11/18 13:00 02/11/18 14:00 02/11/18 15:00 Temperature 97.7 F Pulse Rate 72 66 62 Respiratory Rate 16 Blood Pressure 94/60 L Pulse Oximetry 93 L 02/11/18 16:00 02/11/18 16:41 02/11/18 17:00 Temperature Pulse Rate 66 87 81 Respiratory Rate 18 Blood Pressure Pulse Oximetry 02/11/18 17:07 02/11/18 18:00 02/11/18 19:00 Temperature 98 F Pulse Rate 64 55 L Respiratory Rate 16 20 Blood Pressure 99/62 L 94/67 L Pulse Oximetry 95 02/11/18 20:00 02/11/18 20:59 02/11/18 21:00 Temperature Pulse Rate 55 L 62 Respiratory Rate Blood Pressure Pulse Oximetry 94 L 02/11/18 22:00 02/11/18 23:00 02/12/18 00:00 Temperature 97.7 F Pulse Rate 60 65 65 Respiratory Rate 18 Blood Pressure 102/69 Pulse Oximetry 93 L 02/12/18 01:00 02/12/18 02:00 02/12/18 03:00 Temperature 98.2 F Pulse Rate 63 60 59 L Respiratory Rate 18 Blood Pressure 92/65 L Pulse Oximetry 94 L 02/12/18 04:00 02/12/18 05:00 02/12/18 06:00 Temperature Pulse Rate 59 L 57 L 58 L Respiratory Rate Blood Pressure Pulse Oximetry 02/12/18 07:00 Temperature 97.8 F Pulse Rate 67 Respiratory Rate 18 Blood Pressure 88/56 L Pulse Oximetry 95 Intake & Output 02/11/18 02/12/18 02/12/18 18:59 06:59 18:59 Intake Total 1080 / 1080 800 / 800 Output Total 1605 / 1605 1400 / 1400 Balance -525 / -525 -600 / -600 Weight 94.3 kg Intake: Oral 1080 / 1080 800 / 800 Output: Urine 1605 / 1605 1400 / 1400 Stool 0 / 0 Other: Date of Last Bowel Movement 02/10/18 02/10/18 Narrative: GENERAL: Well-developed, frail, elderly. SKIN: Warm and dry. HEAD: Atraumatic. Normocephalic. EYES: Pupils equal and round. No scleral icterus. No injection or drainage. ENT: No nasal bleeding or discharge. Mucous membranes pink and moist. NECK: Trachea midline. No JVD. CARDIOVASCULAR: Regular rate and rhythm. No Murmur RESPIRATORY: Occ Basal crackles and Breath sounds equal bilaterally. GASTROINTESTINAL: Abdomen soft, non-tender, nondistended. Hepatic and splenic margins not palpable. MUSCULOSKELETAL: Extremities without clubbing, cyanosis, 2+edema in upper extremities. and 1 + of legs . + Penile and scrotal edema. Assessment and Plan - Assessment (1) Acute worsening of stage 3 chronic kidney disease Code(s): N18.3 - Chronic kidney disease, stage 3 (moderate) Status: Acute Plan: Stage III to IV CKD. Non oliguric. Fluid retention is present. On Lasix 80 mg BID and Spironolactone to 50 mg PO daily. Hold Spironolactone. continue diuretics, Monitor urine output and renal function. Continue diuretics Prognosis is poor. (2) Sepsis Code(s): A41.9 - Sepsis, unspecified organism Status: Acute Qualifiers: Sepsis type: sepsis due to unspecified organism Qualified Code(s): A41.9 - Sepsis, unspecified organism (3) Cellulitis of leg, right Code(s): L03.115 - Cellulitis of right lower limb Status: Acute Plan: Improved, antibiotics have been stopped. (4) Congestive heart failure Code(s): I50.9 - Heart failure, unspecified Status: Acute Qualifiers: Heart failure type: unspecified Heart failure chronicity: chronic Qualified Code(s): I50.9 - Heart failure, unspecified Plan: continue diuretic. - Plan Repeat labs tomorrow.
[2018-02-12] MEDS: Spironolactone 50 MG Tablet PO SCH (09:59)
[2018-02-12] MEDS: Torsemide 20 MG Tablet PO SCH ×2 (09:59→18:49)
[2018-02-12] MEDS: Folic Acid 1 MG Tablet PO SCH (09:59)
--- NOTE | 2018-02-12 10:20 | P.PN ---
Subjective Interval history: Nursing denies any deterioration since last night. Patient himself has no new complaints. Is looking forward to discharge. Physical Exam Vital signs: Vital Signs 02/11/18 11:00 02/11/18 12:00 02/11/18 13:00 Temperature 98.2 F Pulse Rate 77 76 72 Respiratory Rate 16 Blood Pressure 91/62 L Pulse Oximetry 95 02/11/18 14:00 02/11/18 15:00 02/11/18 16:00 Temperature 97.7 F Pulse Rate 66 62 66 Respiratory Rate 16 Blood Pressure 94/60 L Pulse Oximetry 93 L 02/11/18 16:41 02/11/18 17:00 02/11/18 17:07 Temperature Pulse Rate 87 81 Respiratory Rate 18 16 Blood Pressure 99/62 L Pulse Oximetry 02/11/18 18:00 02/11/18 19:00 02/11/18 20:00 Temperature 98 F Pulse Rate 64 55 L 55 L Respiratory Rate 20 Blood Pressure 94/67 L Pulse Oximetry 95 02/11/18 20:59 02/11/18 21:00 02/11/18 22:00 Temperature Pulse Rate 62 60 Respiratory Rate Blood Pressure Pulse Oximetry 94 L 02/11/18 23:00 02/12/18 00:00 02/12/18 01:00 Temperature 97.7 F Pulse Rate 65 65 63 Respiratory Rate 18 Blood Pressure 102/69 Pulse Oximetry 93 L 02/12/18 02:00 02/12/18 03:00 02/12/18 04:00 Temperature 98.2 F Pulse Rate 60 59 L 59 L Respiratory Rate 18 Blood Pressure 92/65 L Pulse Oximetry 94 L 02/12/18 05:00 02/12/18 06:00 02/12/18 07:00 Temperature 97.8 F Pulse Rate 57 L 58 L 67 Respiratory Rate 18 Blood Pressure 88/56 L Pulse Oximetry 95 02/12/18 09:57 02/12/18 10:04 Temperature Pulse Rate 72 74 Respiratory Rate 18 16 Blood Pressure 102/70 Pulse Oximetry 93 L 92 L Intake & Output 02/11/18 02/12/18 02/12/18 18:59 06:59 18:59 Intake Total 1080 / 1080 800 / 800 Output Total 1605 / 1605 1400 / 1400 Balance -525 / -525 -600 / -600 Weight 94.3 kg Intake: Oral 1080 / 1080 800 / 800 Output: Urine 1605 / 1605 1400 / 1400 Stool 0 / 0 Other: Date of Last Bowel Movement 02/10/18 02/10/18 Narrative: Right lower extremity is wrapped, left lower extremity in SCD Clear lungs bilaterally, unlabored breathing Results - Labs CBC & Chem 7: 02/06/18 05:27 02/12/18 04:23 Laboratory Results - last 24 hr 02/12/18 04:23 Sodium 135 L Potassium 4.8 Chloride 91 L Carbon Dioxide 35.1 H Anion Gap 9 BUN 61 H Creatinine 2.37 H Estimated GFR 27 L Random Glucose 78 Calcium 8.1 L Phosphorus 4.8 Albumin 1.9 L Assessment and Plan - Assessment (1) Acute worsening of stage 3 chronic kidney disease Code(s): N18.3 - Chronic kidney disease, stage 3 (moderate) Status: Acute (2) Congestive heart failure Code(s): I50.9 - Heart failure, unspecified Status: Acute (3) Edema Code(s): R60.9 - Edema, unspecified Status: Acute - Plan 72 year old male with history of diastolic CHF, atrial fibrillation, hypothyroidism, gout, and alcohol liver disease admitted on 01/27 for progressive LE swelling, shortness of breath, and RLE erythema, warmth, and swelling. He was initially admitted under critical care medicine for CHF exacerbation and combination septic-cardiogenic shock requiring pressors. Weaned off of pressors and now on CIC doing well back at home 3 L baseline. Antibiotics have been discontinued as cellulitis is resolved. ID has signed off. Now trying to achieve baseline renal function. Acute diastolic CHF exacerbation on Chronic diastolic CHF Moderate to severe Pulmonary hypertension - 2D echo 02/02 showing normal LV size and wall thickness, LV EF 50-55%, elevated pulmonary arterial pressure, mildly dilated RA and RV - CXR 02/05 showing persistent cardiomegaly and patchy bilateral airspace disease - BNP 1708 on admission - Torsemide 20mg BID - Nephrology has started him on spironolactone - no further inpt workup from cards at this time Scrotal/Penile edema - Related to CHF. Difficult to provide good dieresis due to low BP. - May need midodrine to support BP. ELOINA on CKD -Worsened over the last 48 hours, rechecking labs tomorrow, nephrology following We will give every 12 doses of albumin, on Lasix -net output over thousand mL's chronic respiratory insufficiency - acute element resolved - Currently on 3L of O2 via NC - baseline for this patient. - Supplemental O2 - Albuterol PRN RLE cellulitis - resolved Chronic hyponatremia - At baseline - Continue to monitor Atrial fibrillation - Diltiazem held as patient has been hypotensive - Remains rate-controlled - Not on any anticoagulation but follows with Dr. Paris as OP - Continue ASA - home midodrine Hypothyroidism - Continue home levothyroxine (2) Congestive heart failure Qualifiers: Heart failure type: unspecified Heart failure chronicity: chronic Qualified Code(s): I50.9 - Heart failure, unspecified
[2018-02-12] MEDS: Albumin Human 25% Inj 50 ML IV.SIG SCH ×2 (11:48→23:07)
[2018-02-12] MEDS: Enoxaparin Inj 30 MG/0.3 ML Syringe SQ SCH (14:57)
[2018-02-12] MEDS: Pantoprazole Inj 40 MG Vial IV.PUSH SCH (20:39)
[2018-02-12] MEDS: Allopurinol 300 MG Tablet PO SCH (20:39)
[2018-02-13] MEDS: Enoxaparin Inj 30 MG/0.3 ML Syringe SQ SCH ×2 (02:22→15:02)
[2018-02-13] MEDS: Levothyroxine 50 MCG Tablet PO SCH (06:10)
[2018-02-13 06:24] LABS: Carbon Dioxide 38.2 meq/L (21.0-32.0); Potassium 4.6 meq/L (3.5-5.1)
[2018-02-13] MEDS: Ferrous Sulfate 325 MG Tablet PO SCH (09:46)
[2018-02-13] MEDS: Spironolactone 50 MG Tablet PO SCH (09:46)
[2018-02-13] MEDS: Folic Acid 1 MG Tablet PO SCH (09:46)
[2018-02-13] MEDS: Torsemide 20 MG Tablet PO SCH (09:46)
--- NOTE | 2018-02-13 11:05 | P.PNNP ---
Subjective Interval history: Swelling has improved considerably. Renal function is stable. He is cleared for discharge from renal standpoint. Physical Exam Vital signs: Vital Signs 02/12/18 12:00 02/12/18 13:00 02/12/18 14:00 Temperature Pulse Rate 64 72 66 Respiratory Rate Blood Pressure Pulse Oximetry 02/12/18 14:58 02/12/18 15:00 02/12/18 16:00 Temperature 97.4 F L Pulse Rate 63 65 62 Respiratory Rate 18 Blood Pressure 81/64 L Pulse Oximetry 93 L 02/12/18 17:00 02/12/18 17:46 02/12/18 18:00 Temperature Pulse Rate 62 60 Respiratory Rate Blood Pressure 89/63 L Pulse Oximetry 02/12/18 18:48 02/12/18 19:00 02/12/18 20:00 Temperature 98 F Pulse Rate 54 L 54 L Respiratory Rate 18 Blood Pressure 96/59 L 97/62 L Pulse Oximetry 95 02/12/18 20:54 02/12/18 21:00 02/12/18 22:00 Temperature Pulse Rate 60 55 L Respiratory Rate Blood Pressure Pulse Oximetry 93 L 02/12/18 23:00 02/12/18 23:58 02/13/18 01:00 Temperature 97.8 F Pulse Rate 56 L 63 56 L Respiratory Rate 18 Blood Pressure 98/62 L Pulse Oximetry 93 L 02/13/18 02:00 02/13/18 03:00 02/13/18 04:00 Temperature 98.2 F Pulse Rate 58 L 69 69 Respiratory Rate 18 Blood Pressure 89/60 L Pulse Oximetry 95 02/13/18 05:00 02/13/18 06:00 02/13/18 07:00 Temperature 97.8 F Pulse Rate 64 63 67 Respiratory Rate 16 Blood Pressure 94/57 L Pulse Oximetry 94 L 02/13/18 09:45 Temperature Pulse Rate Respiratory Rate Blood Pressure Pulse Oximetry 92 L Intake & Output 02/12/18 02/13/18 02/13/18 18:59 06:59 18:59 Intake Total 890 / 890 530 / 530 Output Total 1040 / 1040 1101 / 1101 Balance -150 / -150 -571 / -571 Weight 94.1 kg Intake: IV 50 / 50 50 / 50 Flexbumin 25% Inj 50 ML @ 60 50 / 50 50 / 50 mls/hr IV.SIG Q12H KAYLIN Rx#: [id number] Oral 840 / 840 480 / 480 Output: Urine 1040 / 1040 1100 / 1100 Stool Other: Date of Last Bowel Movement 02/10/18 02/10/18 02/12/18 Narrative: Frail, elderly. Chest: clear Heart RRR Abdomen: soft, non tender. Extremities: Edema has improved, Penile and scrotal edema also have improved. Assessment and Plan - Assessment (1) Acute worsening of stage 3 chronic kidney disease Code(s): N18.3 - Chronic kidney disease, stage 3 (moderate) Status: Acute Plan: Stage III to IV CKD. Non oliguric. Fluid retention is present. On Demadex 20 mg PO BID and Spironolactone 50 mg PO daily. Patient can be discharged on Demadex 20 mg PO daily and Spironolactone 25 mg PO daily. Monitor urine output and renal function. Continue diuretics correction prognosis is guarded. (2) Sepsis Code(s): A41.9 - Sepsis, unspecified organism Status: Acute Qualifiers: Sepsis type: sepsis due to unspecified organism Qualified Code(s): A41.9 - Sepsis, unspecified organism (3) Cellulitis of leg, right Code(s): L03.115 - Cellulitis of right lower limb Status: Acute Plan: Improved, antibiotics have been stopped. (4) Congestive heart failure Code(s): I50.9 - Heart failure, unspecified Status: Acute Qualifiers: Heart failure type: unspecified Heart failure chronicity: chronic Qualified Code(s): I50.9 - Heart failure, unspecified Plan: continue diuretic. - Plan Cleared for discharge. Discussed with Dr. Kelly
--- NOTE | 2018-02-13 15:04 | P.PN ---
Subjective Interval history: Nursing denies any deterioration since last night. Patient thinks his edema is improved. As he wears 3 L of oxygen at home. Physical Exam Vital signs: Vital Signs 02/12/18 16:00 02/12/18 17:00 02/12/18 17:46 Temperature Pulse Rate 62 62 Respiratory Rate Blood Pressure 89/63 L Pulse Oximetry 02/12/18 18:00 02/12/18 18:48 02/12/18 19:00 Temperature 98 F Pulse Rate 60 54 L Respiratory Rate 18 Blood Pressure 96/59 L 97/62 L Pulse Oximetry 95 02/12/18 20:00 02/12/18 20:54 02/12/18 21:00 Temperature Pulse Rate 54 L 60 Respiratory Rate Blood Pressure Pulse Oximetry 93 L 02/12/18 22:00 02/12/18 23:00 02/12/18 23:58 Temperature 97.8 F Pulse Rate 55 L 56 L 63 Respiratory Rate 18 Blood Pressure 98/62 L Pulse Oximetry 93 L 02/13/18 01:00 02/13/18 02:00 02/13/18 03:00 Temperature 98.2 F Pulse Rate 56 L 58 L 69 Respiratory Rate 18 Blood Pressure 89/60 L Pulse Oximetry 95 02/13/18 04:00 02/13/18 05:00 02/13/18 06:00 Temperature Pulse Rate 69 64 63 Respiratory Rate Blood Pressure Pulse Oximetry 02/13/18 07:00 02/13/18 08:00 02/13/18 09:00 Temperature 97.8 F Pulse Rate 64 66 62 Respiratory Rate 16 Blood Pressure 94/57 L Pulse Oximetry 94 L 02/13/18 09:45 02/13/18 10:00 02/13/18 11:00 Temperature 97.3 F L Pulse Rate 72 73 Respiratory Rate 18 Blood Pressure 87/54 L Pulse Oximetry 92 L 95 02/13/18 12:00 02/13/18 13:00 Temperature Pulse Rate 62 54 L Respiratory Rate Blood Pressure Pulse Oximetry Intake & Output 02/12/18 02/13/18 02/13/18 18:59 06:59 18:59 Intake Total 890 / 890 530 / 530 Output Total 1040 / 1040 1101 / 1101 Balance -150 / -150 -571 / -571 Weight 94.1 kg Intake: IV 50 / 50 50 / 50 Flexbumin 25% Inj 50 ML @ 60 50 / 50 50 / 50 mls/hr IV.SIG Q12H KYALIN Rx#: [id number] Oral 840 / 840 480 / 480 Output: Urine 1040 / 1040 1100 / 1100 Stool Other: Date of Last Bowel Movement 02/10/18 02/10/18 02/12/18 Narrative: Sitting up in bed and reclined position, comfortable, unlabored breathing, on nasal cannula Significantly improved edema in bilateral lower extremities, right lower extremity in Malik wrap per infectious disease Penile edema almost resolved - Constitutional chronically ill appearing Results - Labs CBC & Chem 7: 02/06/18 05:27 02/13/18 05:42 Laboratory Results - last 24 hr 02/13/18 05:42 Sodium 134 L Potassium 4.6 Chloride 91 L Carbon Dioxide 38.2 H Anion Gap 5 BUN 64 H Creatinine 2.29 H Estimated GFR 28 L Random Glucose 79 Calcium 8.0 L Assessment and Plan - Assessment (1) Acute worsening of stage 3 chronic kidney disease Code(s): N18.3 - Chronic kidney disease, stage 3 (moderate) Status: Acute (2) Congestive heart failure Code(s): I50.9 - Heart failure, unspecified Status: Acute (3) Edema Code(s): R60.9 - Edema, unspecified Status: Acute - Plan 72 year old male with history of diastolic CHF, atrial fibrillation, hypothyroidism, gout, and alcohol liver disease admitted on 01/27 for progressive LE swelling, shortness of breath, and RLE erythema, warmth, and swelling. He was initially admitted under critical care medicine for CHF exacerbation and combination septic-cardiogenic shock requiring pressors. Weaned off of pressors and now on CIC doing well back at home 3 L baseline. Antibiotics have been discontinued as cellulitis is resolved. ID has signed off. Now trying to achieve baseline renal function. Acute diastolic CHF exacerbation on Chronic diastolic CHF Moderate to severe Pulmonary hypertension -Acute exacerbation resolved -Clear from cardiology standpoint, now on 1 time daily dose of torsemide is prolactin per nephrology ELOINA on CKD -Acute element resolved, discussed with nephrology, currently creatinine at 2.29 close to baseline chronic respiratory insufficiency - Currently on 3L of O2 via NC - baseline for this patient. Chronic hyponatremia - At baseline - Continue to monitor Atrial fibrillation - Diltiazem held as patient has been hypotensive - Remains rate-controlled - Not on any outpatient anticoagulation but follows with Dr. Paris as OP - Continue ASA - home midodrine Hypothyroidism - Continue home levothyroxine lovenox (2) Congestive heart failure Qualifiers: Heart failure type: unspecified Heart failure chronicity: chronic Qualified Code(s): I50.9 - Heart failure, unspecified
[2018-02-13] MEDS: Pantoprazole Inj 40 MG Vial IV.PUSH SCH (20:02)
[2018-02-13] MEDS: Allopurinol 300 MG Tablet PO SCH (20:02)
[2018-02-14] MEDS: Enoxaparin Inj 30 MG/0.3 ML Syringe SQ SCH ×2 (03:02→16:56)
[2018-02-14] MEDS: Levothyroxine 50 MCG Tablet PO SCH (06:19)
[2018-02-14] MEDS: Folic Acid 1 MG Tablet PO SCH (08:39)
[2018-02-14] MEDS ORDERED: Torsemide 20 MG Tablet PO SCH (09:00)
[2018-02-14] MEDS ORDERED: Spironolactone 25 MG Tablet PO SCH (09:00)
--- NOTE | 2018-02-14 09:16 | P.PNNP ---
Subjective Interval history: Patient was seen and examined. No new changes in his status since yesterday. Physical Exam Vital signs: Vital Signs 02/13/18 09:45 02/13/18 10:00 02/13/18 11:00 Temperature 97.3 F L Pulse Rate 72 73 Respiratory Rate 18 Blood Pressure 87/54 L Pulse Oximetry 92 L 95 02/13/18 12:00 02/13/18 13:00 02/13/18 14:00 Temperature Pulse Rate 62 54 L 76 Respiratory Rate Blood Pressure Pulse Oximetry 02/13/18 15:00 02/13/18 16:00 02/13/18 17:00 Temperature 97.8 F Pulse Rate 63 58 L 58 L Respiratory Rate 18 Blood Pressure 96/62 L Pulse Oximetry 93 L 02/13/18 18:00 02/13/18 19:00 02/13/18 20:00 Temperature 98.2 F Pulse Rate 64 54 L 54 L Respiratory Rate 18 Blood Pressure 101/64 Pulse Oximetry 95 02/13/18 20:54 02/13/18 21:00 02/13/18 22:00 Temperature Pulse Rate 61 58 L Respiratory Rate Blood Pressure Pulse Oximetry 94 L 02/13/18 23:00 02/14/18 00:00 02/14/18 01:00 Temperature 98 F Pulse Rate 51 L 51 L 55 L Respiratory Rate 18 Blood Pressure 98/69 L Pulse Oximetry 94 L 02/14/18 02:00 02/14/18 03:00 02/14/18 04:00 Temperature 97.9 F Pulse Rate 60 67 67 Respiratory Rate 18 Blood Pressure 94/67 L Pulse Oximetry 95 02/14/18 05:00 02/14/18 06:00 02/14/18 07:00 Temperature 98.0 F Pulse Rate 63 68 68 Respiratory Rate 20 Blood Pressure 90/57 L Pulse Oximetry 93 L 02/14/18 08:00 02/14/18 09:00 Temperature Pulse Rate 67 68 Respiratory Rate Blood Pressure Pulse Oximetry 93 L Intake & Output 02/13/18 02/14/18 02/14/18 18:59 06:59 18:59 Intake Total 940 / 940 480 / 480 Output Total 940 / 940 1101 / 1101 Balance 0 / 0 -621 / -621 Weight 90.3 kg Intake: Oral 940 / 940 480 / 480 Output: Urine 940 / 940 1100 / 1100 Stool Other: Date of Last Bowel Movement 02/13/18 02/14/18 Narrative: Edema: improved. Chest: clear RRR Abdomen: soft. Penile edema and scrotal edema: improved. Assessment and Plan - Assessment (1) Acute worsening of stage 3 chronic kidney disease Code(s): N18.3 - Chronic kidney disease, stage 3 (moderate) Status: Acute Plan: Stage III to IV CKD. Non oliguric. Fluid retention has improved. Currently on Demadex 20 mg PO daily and Spironolactone 25 mg PO daily Monitor urine output and renal function. Continue diuretics continuous churn buttermaker prognosis is guarded. (2) Sepsis Code(s): A41.9 - Sepsis, unspecified organism Status: Acute Qualifiers: Sepsis type: sepsis due to unspecified organism Qualified Code(s): A41.9 - Sepsis, unspecified organism (3) Cellulitis of leg, right Code(s): L03.115 - Cellulitis of right lower limb Status: Acute Plan: Improved, antibiotics have been stopped. (4) Congestive heart failure Code(s): I50.9 - Heart failure, unspecified Status: Acute Qualifiers: Heart failure type: unspecified Heart failure chronicity: chronic Qualified Code(s): I50.9 - Heart failure, unspecified Plan: continue diuretic. - Plan Cleared for discharge.
--- NOTE | 2018-02-14 17:23 | P.DS ---
Date of admission: 01/27/18 19:15 Primary care physician: Bill Culp MD Brief History from admission: This is a 72yM with history of diastolic heart failure who presents with a few day history of progressive RLE swelling as well as progressive shortness of breath over last 1 day. His RLE has been increasingly red, warm, and swelling larger than usual. He states he called his doctor who gave him additional diuretics. In the ER, he had a severely elevated BNP at 1708 (has had previous BNP between 1300 - 1800). Cr elevated at 2.6 (baseline Cr 1.66 - 2.0). K elevated at 5.1, but from prior visits, baseline K appears to be 5. Patient also has been persistently hyponatremic on prior visits in the high 120s/low 130s. today his sodium is 133. He complains of SOB, HERRERA, LE edema, orthopnea. He denies fever, chills, sputum production, cough. spo2 is 88% on 4L o2 by NC on my evaluation. very hypoalbuminemic at 1.2. wbc 11.8, 94% neutrophil predominance, no bandemia. ESR elevated at 30. afebrile. However, in the ER, he was persistently hypotensive, requiring central venous catheter insertion and dopamine infusion. the remainder of the ROS is negative, particularly negative for chest pain, headache, syncope, fever, chills, cough, wheezing, nausea, vomiting, diarrhea, constipation, abdominal pain, leg pain. DS: Diagnosis - Discharge Diagnosis (1) Acute worsening of stage 3 chronic kidney disease Status: Acute (2) Congestive heart failure Status: Acute (3) Edema Status: Acute DS: Medications - Discharge Medications Prescriptions: hydrocodone-acetaminophen 1 tab PO Q4H PRN #12 tab PRN Reason: pain pantoprazole [Protonix] 40 mg PO DAILY #30 tab spironolactone 25 mg PO DAILY #30 tab torsemide 20 mg PO DAILY #30 tab DS: Summary Hospital Course: 72 year old male with history of diastolic CHF, atrial fibrillation, hypothyroidism, gout, and alcohol liver disease admitted on 01/27 for progressive LE swelling, shortness of breath, and RLE erythema, warmth, and swelling. He was initially admitted under critical care medicine for CHF exacerbation and combination septic-cardiogenic shock requiring pressors. Weaned off of pressors and now on CIC doing well back at home 3 L baseline. Antibiotics have been discontinued as cellulitis is resolved. ID has signed off. regained baseline renal function. Pt has met maximal benefit from hospitalization and is clinically stable for discharge. - Time Spent with Patient Total time spent providing and/or coordinating discharge services: Less than 30 minutes - Quality: VTE Deep Vein Thrombosis/Pulmonary Embolism Present on Admission: No Exam Vital signs: Vital Signs 02/13/18 18:00 02/13/18 19:00 02/13/18 20:00 Temperature 98.2 F Pulse Rate 64 54 L 54 L Respiratory Rate 18 Blood Pressure 101/64 Pulse Oximetry 95 02/13/18 20:54 02/13/18 21:00 02/13/18 22:00 Temperature Pulse Rate 61 58 L Respiratory Rate Blood Pressure Pulse Oximetry 94 L 02/13/18 23:00 02/14/18 00:00 02/14/18 01:00 Temperature 98 F Pulse Rate 51 L 51 L 55 L Respiratory Rate 18 Blood Pressure 98/69 L Pulse Oximetry 94 L 02/14/18 02:00 02/14/18 03:00 02/14/18 04:00 Temperature 97.9 F Pulse Rate 60 67 67 Respiratory Rate 18 Blood Pressure 94/67 L Pulse Oximetry 95 02/14/18 05:00 02/14/18 06:00 02/14/18 07:00 Temperature 98.0 F Pulse Rate 63 68 68 Respiratory Rate 20 Blood Pressure 90/57 L Pulse Oximetry 93 L 02/14/18 08:00 02/14/18 09:00 02/14/18 10:00 Temperature Pulse Rate 67 68 92 H Respiratory Rate Blood Pressure Pulse Oximetry 93 L 02/14/18 11:00 02/14/18 11:07 02/14/18 12:00 Temperature 98.0 F Pulse Rate 78 54 L Respiratory Rate 18 Blood Pressure 87/59 L Pulse Oximetry 95 94 L 02/14/18 13:00 02/14/18 14:00 Temperature Pulse Rate 67 69 Respiratory Rate Blood Pressure Pulse Oximetry Intake & Output 02/13/18 02/14/18 02/14/18 18:59 06:59 18:59 Intake Total 940 / 940 480 / 480 Output Total 940 / 940 1101 / 1101 Balance 0 / 0 -621 / -621 Weight 90.3 kg Intake: Oral 940 / 940 480 / 480 Output: Urine 940 / 940 1100 / 1100 Stool Other: Date of Last Bowel Movement 02/13/18 02/14/18 Narrative: Sitting up in bed and reclined position, comfortable, unlabored breathing, on nasal cannula Significantly improved edema in bilateral lower extremities, right lower extremity in Malik wrap per infectious disease Results Procedures completed during hospitalization: Central line placement - Impressions ITS Impressions Abdomen/Bladder Ultrasound 01/28/18 00:00 CONCLUSION: 1. Normal-sized kidneys with thin renal cortex Femur CT 01/28/18 00:00 CONCLUSION: 1. Diffuse subcutaneous swelling is noted throughout the right thigh suggesting diffuse cellulitis. No deep soft tissue abscess is noted. 2. No fracture, dislocation, or focal bony abnormality. Lower Extremity CT 01/28/18 00:00 CONCLUSION: 1. Diffuse subcutaneous swelling of the left lower leg suggesting diffuse cellulitis. 2. Small knee joint effusion. 3. Mild degenerative changes involving the femoral-tibial and patellofemoral joints. 4. No acute fracture or dislocation of the tibia or fibula. Venous Doppler Study 02/05/18 00:00 CONCLUSION: 1. Cephalic vein thrombosis. Chest X-Ray 02/07/18 00:00 CONCLUSION: Slight improvement in aeration. Discharge Plan - Discharge Disposition Patient Disposition: /Home Health Service - Discharge Condition Condition: Fair - Discharge Order Discharge Orders: Discharge Order (Routine); Ordered 02/14/18 Ordered By: Albino Kelly - Discharge Details Anticipated Discharge Date: 02/13/18 Discharge Comment: Continue Nystatin cream for Local application. - Physicians Team Primary Care Provider: Bill Culp Attending Provider: Albino Kelly Other Providers: Yolis Mccormick MD ; Chitra Ulloa MD ; Masood Gutierrez MD ; Alison Bass MD ; Mark Donahue MD
--- NOTE | 2018-02-14 17:24 | P.DCO ---
- Physical Therapy Order: Evaluate and treat - Occupational Therapy Order: Evaluate and treat - Home Health Nursing Order: Medical education - Case Management Consult Yes - Certification I have seen patient Donovan Herring on 02/14/18. My clinical findings support the need for the requested home health care services because: Limited ability to care for self I certify that my clinical findings support that this patient is homebound because: Unsafe to leave home unassisted
== END 2018-02-14 18:38 | disposition home health service (06) ==
LOC: PHED 15:47 → PHEDA 19:15 → HIMC 21:20 → HCIS 02-06 13:19 → N07 02-14 15:21
PROVIDERS: ADMIT Hospitalist; ATTEND Hospitalist

== ENCOUNTER 2018-04-25 00:27 | Inpatient (IN) ==
[2018-04-25] MEDS ORDERED: Sodium Chlor 0.9% Inj 500 ML IV.SIG ONE (00:42)
[2018-04-25] MEDS ORDERED: fentaNYL Citrate Inj 100 MCG/2 ML Ampul IV.PUSH ONE (00:42)
[2018-04-25] MEDS: fentaNYL 10 mcg/mL Premix Drip 2,500 MCG/250 ML BAG IV.SIG PRN ×2 (00:51→14:31)
--- NOTE | 2018-04-25 01:12 | XR ---
EXAM DATE: 04/25/2018 1:07 AM EST AGE/SEX: 89 years / Male INDICATIONS: Respiratory distress. CLINICAL DATA: This is the patient's initial encounter. Patient reports that signs and symptoms have been present for 1 day and indicates a pain score of Nonresponsive. MEDICAL/SURGICAL HISTORY: . Unobtainable. . Unobtainable. COMPARISON: No prior exams available for comparison. FINDINGS: A single AP view of the chest demonstrates cardiomegaly. Pulmonary vascular engorgement. Basilar intr a-alveolar opacities with diffuse interstitial prominence more pronounced within the lower lobes. Sma ll effusions. Tip the endotracheal tube 3 cm from the ted. Nasogastric tube courses off the inferi or margin of the film. A metallic structure overlies the right shoulder. CONCLUSION: Radiographic pattern most suggestive of pulmonary edema. Electronically signed by: Tico Garcia MD 04/25/2018 1:10 AM EST
[2018-04-25 01:13] LABS: Baso % (Auto) 0.1 % (0.0-2.0); Eos # (Auto) 0.6 th/mm3 (0.0-0.4); Eos % (Auto) 4.1 % (0.0-4.0); Hematocrit 48.4 % (39.0-51.0); Hemoglobin 16.2 gm/dL (13.0-17.0); Lymph # (Auto) 0.3 th/mm3 (1.0-4.8); Lymph % (Auto) 1.9 % (9.0-44.0); Mean Corpuscular HGB Conc 33.5 % (32.0-36.0); Mean Corpuscular Hemoglobin 32.2 pg (27.0-34.0); Mean Platelet Volume 10.4 fL (7.0-11.0); Mono # (Auto) 0.3 th/mm3 (0.0-0.9); Mono % (Auto) 2.1 % (0.0-8.0); Neut # (Auto) 12.4 th/mm3 (1.8-7.7); Neut % (Auto) 91.8 % (16.0-70.0); Platelet Count 129 th/mm3 (150-450); Red Blood Count 5.05 mil/mm3 (4.50-5.90); Red Cell Distribution Width 17.1 % (11.6-17.2); White Blood Count 13.5 th/mm3 (4.0-11.0)
[2018-04-25 01:16] LABS: Bacteria,Urine Few /hpf; Bilirubin,Urine Negative (Negative); Clarity,Urine Cloudy (Clear); Color,Urine Amber (Yellw/Straw); Glucose,Urine (UA) Negative (Negative); Hyaline Casts,Urine 91 /lpf (0-3); Leukocyte Esterase,Urine Negative (Negative); Mucus,Urine Few /lpf (Occasional); Nitrite,Urine Negative (Negative)
[2018-04-25 01:31] LABS: Activated Partial Thrombo Time 42.5 sec (23.4-31.7); INR 1.5 Ratio; Prothrombin Time 14.9 sec (9.8-11.6)
[2018-04-25 01:36] LABS: Alanine Aminotransferase 18 U/L (12-78); Albumin 1.1 g/dL (3.4-5.0); Alkaline Phosphatase 121 U/L (45-117); Anion Gap 12 meq/L (5-15); Aspartate Aminotransferase 43 U/L (15-37); Blood Urea Nitrogen 94 mg/dL (7-18); Calcium 7.4 mg/dL (8.5-10.1); Chloride 98 meq/L (98-107); Creatine Kinase 261 U/L (39-308); Glomerular Filtration Rate 13 mL/min (>89); Glucose,Random 80 mg/dL (74-106); Lipase 15 U/L (73-393); Magnesium 1.8 mg/dL (1.5-2.5); Potassium 6.4 meq/L (3.5-5.1); Sodium 131 meq/L (136-145); Total Protein 4.3 g/dL (6.4-8.2)
[2018-04-25 01:37] LABS: Amphetamine Screen,Urine Neg (Neg); Barbiturate Screen,Urine Neg (Neg); Cannabinoid Screen,Urine Neg (Neg); Cocaine Screen,Urine Neg (Neg)
[2018-04-25 01:39] LABS: Troponin I 0.66 ng/mL (0.02-0.05)
[2018-04-25 01:40] LABS: Opiate Screen,Urine Neg (Neg)
[2018-04-25 01:56] LABS: Creatine Kinase MB 10.9 ng/mL (0.5-3.6)
[2018-04-25] MEDS ORDERED: DOPamine 800 MG/500 ML Premix 800 MG/500 ML PLAST..BAG IV.CONT PRN (02:02)
--- NOTE | 2018-04-25 02:03 | ED ---
HPI General Chief complaint: Respiratory Symptoms Stated complaint: Resp,Evac Time Seen by Provider: 04/25/18 00:35 Source: family and EMS Mode of arrival: EMS Limitations: other (the patient is currently intubated) History of Present Illness HPI narrative: The patient is a 72 year old male who presents to the [facility] emergency department with a history of according to ambulance services falling prior to arrival and then beginning to have shortness of breath. Upon their arrival the patient was noted to have O2 saturations in the 80s with a low blood pressure. IV access was obtained and the patient was started on dopamine. The patient was placed on a nonrebreather mask and continued to have diminished O2 saturations. The patient's blood pressure was able to be increased, the patient was given Versed 4 mg IV, etomidate 20 mg IV and then intubated with an 8 size endotracheal tube. The patient arrives with a systolic blood pressure of 110. The patient is coughing, moving his extremities spontaneously. The patient has no visible signs of trauma. As the patient is intubated, the patient was unable to provide any history on arrival. The patient's arrives at his bedside shortly after his arrival. She reports that over the last 4 days he has had increasing generalized weakness with shortness of breath with exertion. She reports that he recently saw his director electrical engineering on April 11 and had a new diuretic added to his regimen. He was previously on furosemide, and spironolactone, however he continued to have shortness of breath, therefore a new diuretic was administered on Wednesday, Wednesday, and Wednesday. As he does have chronic renal failure stage III he was instructed to only do this for 2 weeks and then have his laboratory studies repeated. His reports that he has a follow-up appointment scheduled for tomorrow. She reports that he has a chronic cough that is been no worse than usual. She denies him having any recent fevers. And review of systems otherwise, she denies him having any complaints of chest pain, abdominal pain, nausea, vomiting, or diarrhea. Related Data Home Medications Medication Instructions Recorded Confirmed Unable to Obtain Home Meds 04/25/18 04/25/18 Allergies Allergy/AdvReac Type Severity Reaction Status Date / Time ciprofloxacin [From Cipro] Allergy rash Verified 04/25/18 00:36 Review of Systems ROS Unobtainable ROS Unobtainable: unobtainable due to endotracheal tube [facility] Medical History Medical History CKD (chronic kidney disease) stage 4, GFR 15-29 ml/min (Acute) Diastolic heart failure (Acute) EtOH dependence (Acute) Gout (Acute) Hypothyroidism (Acute) Pulmonary HTN (Acute) Tobacco abuse (Acute) Surgical History Surgical History Hx of appendectomy (Acute) Family History Family History Other Unknown family medical history Social History Social History Substance History: Past History Smoking Status: Former smoker Packs Per Day: 1.5 Cigarettes Per Day: 30.0 Years Smoked: 40 Pack-Years: 60.00 Smoking End Date: 2000 How Often Do You Have a Drink Containing Alcohol: Never Recent Travel in [facility] within the Last 8 Weeks: No Recent Out of Country Travel within the Last 8 Weeks: No Immunization History Tetanus Immunization: Unable to Assess Exam Narrative Exam Narrative: The patient arrives with an endotracheal tube in place, placed by ambulance services being bagged. Const General: ill appearing and other (Patient being bagged to an endotracheal tube on arrival. The patient is intermittently coughing against the endotracheal tube.) HENMT Head: normocephalic and atraumatic Nose: no nasal discharge and no epistaxis Mouth: moist mucous membranes Throat: other (Posterior oropharynx was not able to be fully visualized as the patient arrives intubated.) Eyes Sclera: normal sclerae Pupils: PERRL (3 mm and reactive to light bilaterally.) Neck Neck: no meningeal signs, trachea midline and no JVD Resp Effort & Inspection: no use of accessory muscles Auscultation: no rales, no rhonchi, no wheezes and other (Decreased breath sounds in bilateral lung bases.) Cardio Rate: tachycardic (Tachycardia in the low 100s noted on arrival, irregularly irregular in a patient with a history of atrial fibrillation.) Rhythm: abnormal rhythm irregularly irregular Heart Sounds: no gallops, no murmurs and no rubs GI Inspection: non-distended Palpation: soft, no hepatosplenomegaly, no guarding, not rigid and nontender Auscultation: normal bowel sounds Skin General: dry skin (warm) Neuro General: other (The patient was provided sedation for intubation. The patient is intermittently coughing against the endotracheal tube. On arrival, the patient does spontaneously move all extremities. He is otherwise uncooperative with formal neurologic testing.) Extrem General: normal to inspection, no calf tenderness, no clubbing, no cyanosis and edema (Trace pedal edema bilaterally. Slightly worse on the left compared to the right.) Laterality: bilaterally Course Initial Documented Vital Signs Pulse Rate 116 H 04/25/18 00:32 Respiratory Rate 16 04/25/18 00:32 Blood Pressure 110/74 04/25/18 00:32 Last Documented Vital Signs Temperature 98.7 F 04/25/18 05:00 Pulse Rate 136 H 04/25/18 16:04 Respiratory Rate 20 04/25/18 16:04 Blood Pressure 78/52 L 04/25/18 06:04 Pulse Oximetry 97 04/25/18 16:04 Critical Care Time Critical Care Time: Yes Total Critical Care Time: 36 Attestation: Aggregate critical care time was 36 minutes. Time to perform other separately billable procedures was not included in the critical care time. My time did not include minutes spent treating any other patients simultaneously or on activities that did not directly contribute to the patient's treatment. The services I provided to this patient were to treat and/or prevent clinically significant deterioration that could result in: Hypoxemic brain injury, versus hypercapnia, versus progressive pulmonary edema, versus cardiovascular collapse from cardiac arrhythmia I provided critical care services requiring my management, as noted below: Chart data review, documentation time, medication orders and management, vital sign assessments/reviewing monitor data, ordering and reviewing lab tests, ordering and interpreting/reviewing x-rays and diagnostic studies, care of the patient and discussion of the patient with the admitting physicians. Medical Decision Making MDM Narrative Medical decision making narrative: During the course of the patient's emergency department visit, the patient's history, examination, and differential diagnosis were reviewed with the patient. The patient was placed on a satellite project site monitor with oximetry and frequent blood pressure monitoring. The patient had IV access obtained and blood work sent for analysis. Diagnostic evaluation was started regarding the patient's progressive generalized weakness and shortness of breath. The patient on arrival was noted to be on 20 mcg of dopamine. This was continued while the patient was initially assessed as his blood pressure was a systolic of 110. The patient was initially provided fentanyl as a bolus and then a drip for sedation on the ventilator. The patient was provided a normal saline 500 mL bolus x1. Patient had a Lang catheter placed to gravity. The patient had an OG tube placed to low intermittent suction. The patient's diagnostic studies are remarkable for a white count of 13.5, hemoglobin 16.2, platelets 129 with 91.8 neutrophils, PT 14.9, PTT 42.5, INR 1.5 , chemistries remarkable for sodium of 131, potassium 6.4, BUN 94, creatinine of 4.01. The patient was given 1 amp of bicarb, calcium chloride 1 g IV, dextrose 50 g IV followed by regular insulin 10 units IV for his hyperkalemia. This could be contributing to the patient's generalized weakness. Calcium is 7.4, calcium adjusted for albumin is 9.0, AST 43, alk phos 121, CK MB is 10.9, troponin I is 0.66, lipase 15, BNP 2388. Chest x-ray shows radiographic pattern most suggestive of pulmonary edema. A CT scan of the head, thorax, abdomen and pelvis was ordered and will be accomplished on the way up to [facility] for continued treatment under the care of the house mover supervisor. Patient was provided nitroglycerin 1/2 inch to the chest wall, aspirin 300 mg NM. The patient's case including history, pertinent physical examination findings, and laboratory studies were discussed with Dr. Shankar, the house mover supervisor. It was agreed that the patient would be admitted to the house mover supervisor's service. The patient was admitted to the hospital in critical condition and sent to a bed under the care of the house mover supervisor. Medical Screen Exam Complete: Yes Emergency Medical Condition: Yes Differential Diagnosis Differential Diagnosis: Congestive heart failure exacerbation, versus acute coronary syndrome, versus COPD exacerbation, versus cardiac arrhythmia, versus pneumonia, versus pulmonary embolism, versus pneumothorax Medical Records Medical records reviewed: Yes I reviewed the patient's medical records. Lab Data Lab results reviewed: Yes I reviewed the patient's lab results. Result diagrams: 04/25/18 10:05 04/25/18 10:05 Lab Results 04/25/18 04/25/18 04/25/18 Range/Units 00:32 00:48 00:48 WBC 13.5 H (4.0-11.0) th/mm3 RBC 5.05 (4.50-5.90) mil/mm3 Hgb 16.2 (13.0-17.0) gm/dL Hct 48.4 (39.0-51.0) % MCV 96.0 (80.0-100.0) fL MCH 32.2 (27.0-34.0) pg MCHC 33.5 (32.0-36.0) % RDW 17.1 (11.6-17.2) % Plt Count 129 L (150-450) th/mm3 MPV 10.4 (7.0-11.0) fL Neut % (Auto) 91.8 H (16.0-70.0) % Lymph % (Auto) 1.9 L (9.0-44.0) % [place] % (Auto) 2.1 (0.0-8.0) % Eos % (Auto) 4.1 H (0.0-4.0) % Baso % (Auto) 0.1 (0.0-2.0) % Neut # (Auto) 12.4 H (1.8-7.7) th/mm3 Lymph # (Auto) 0.3 L (1.0-4.8) th/mm3 [place] # (Auto) 0.3 (0.0-0.9) th/mm3 Eos # (Auto) 0.6 H (0.0-0.4) th/mm3 Baso # (Auto) 0.0 (0.0-0.2) th/mm3 WBC Differential . Differential Comment Auto diff final PT (9.8-11.6) sec INR Ratio APTT (23.4-31.7) sec Puncture Site Patient Temperature O2 Saturation (90-100) % ABG pH (7.380-7.420) ABG pCO2 (38-42) mmHg ABG pO2 (61-120) mmHG ABG HCO3 (22-26) mmol/L ABG O2 Content (12.0-20.0) Vol % ABG Base Excess (-2-2) mmol/L ABG Methemoglobin (0-2) % Lucien Test Hemoglobin (12.0-16.0) G/DL Carboxyhemoglobin (0-4) % O2 Delivery Device Vent Setting Inspired O2 % Critical Value Sodium 131 L (136-145) meq/L Potassium 6.4 H (3.5-5.1) meq/L Chloride 98 (98-107) meq/L Carbon Dioxide 21.0 (21.0-32.0) meq/L Anion Gap 12 (5-15) meq/L BUN 94 H (7-18) mg/dL Creatinine 4.01 H (0.60-1.30) mg/dL Estimated GFR 13 L (>89) mL/min POC Glucose 82 (68-110) mg/dl Random Glucose 80 (74-106) mg/dL Lactic Acid (0.4-2.0) mmol/L Calcium 7.4 L* (8.5-10.1) mg/dL Calcium Adj for Albumin 9.0 (8.5-10.1) mg/dL Phosphorus (2.5-4.9) mg/dL Magnesium 1.8 (1.5-2.5) mg/dL Total Bilirubin 1.0 (0.2-1.0) mg/dL AST 43 H (15-37) U/L ALT 18 (12-78) U/L Alkaline Phosphatase 121 H (45-117) U/L Total Creatine Kinase 261 (39-308) U/L CK-MB (CK-2) 10.9 H (0.5-3.6) ng/mL Troponin I 0.66 H* (0.02-0.05) ng/mL B-Natriuretic Peptide (0-100) pg/mL Total Protein 4.3 L (6.4-8.2) g/dL Albumin 1.1 L (3.4-5.0) g/dL Lipase 15 L (73-393) U/L Urine Color (Yellw/Straw) Urine Clarity (Clear) Urine pH (5.0-8.5) Ur Specific [place] (1.002-1.035) Urine Protein (Neg-Trace) mg/dL Urine Glucose (UA) (Negative) mg/dL Urine Ketones (Negative) mg/dL Urine Occult Blood (Negative) Urine Nitrate (Negative) Urine Bilirubin (Negative) Urine Urobilinogen (Less than 2) mg/dL Ur Leukocyte Esterase (Negative) Urine RBC (0-3) /hpf Urine WBC (0-5) /hpf Urine WBC Clumps (None) Urine Bacteria (None) /hpf Hyaline Casts (0-3) /lpf Urine Mucus (Occasional) /lpf Micro UA Comment Ur Microscopic Review Urine Culture Comments Nasal Screen MRSA (PCR) (Negative) Urine Opiates Screen (Neg) Ur Barbiturates Screen (Neg) Ur Amphetamines Screen (Neg) U Benzodiazepines Scrn (Neg) Urine Cocaine Screen (Neg) U Cannabinoids Screen (Neg) Serum Alcohol Less than 3 (0-5) mg/dL 04/25/18 04/25/18 04/25/18 Range/Units 00:48 00:48 00:48 WBC (4.0-11.0) th/mm3 RBC (4.50-5.90) mil/mm3 Hgb (13.0-17.0) gm/dL Hct (39.0-51.0) % MCV (80.0-100.0) fL MCH (27.0-34.0) pg MCHC (32.0-36.0) % RDW (11.6-17.2) % Plt Count (150-450) th/mm3 MPV (7.0-11.0) fL Neut % (Auto) (16.0-70.0) % Lymph % (Auto) (9.0-44.0) % [place] % (Auto) (0.0-8.0) % Eos % (Auto) (0.0-4.0) % Baso % (Auto) (0.0-2.0) % Neut # (Auto) (1.8-7.7) th/mm3 Lymph # (Auto) (1.0-4.8) th/mm3 [place] # (Auto) (0.0-0.9) th/mm3 Eos # (Auto) (0.0-0.4) th/mm3 Baso # (Auto) (0.0-0.2) th/mm3 WBC Differential Differential Comment PT 14.9 H (9.8-11.6) sec INR 1.5 Ratio APTT 42.5 H (23.4-31.7) sec Puncture Site Patient Temperature O2 Saturation (90-100) % ABG pH (7.380-7.420) ABG pCO2 (38-42) mmHg ABG pO2 (61-120) mmHG ABG HCO3 (22-26) mmol/L ABG O2 Content (12.0-20.0) Vol % ABG Base Excess (-2-2) mmol/L ABG Methemoglobin (0-2) % Lucien Test Hemoglobin (12.0-16.0) G/DL Carboxyhemoglobin (0-4) % O2 Delivery Device Vent Setting Inspired O2 % Critical Value Sodium (136-145) meq/L Potassium (3.5-5.1) meq/L Chloride (98-107) meq/L Carbon Dioxide (21.0-32.0) meq/L Anion Gap (5-15) meq/L BUN (7-18) mg/dL Creatinine (0.60-1.30) mg/dL Estimated GFR (>89) mL/min POC Glucose (68-110) mg/dl Random Glucose (74-106) mg/dL Lactic Acid 3.9 H (0.4-2.0) mmol/L Calcium (8.5-10.1) mg/dL Calcium Adj for Albumin (8.5-10.1) mg/dL Phosphorus (2.5-4.9) mg/dL Magnesium (1.5-2.5) mg/dL Total Bilirubin (0.2-1.0) mg/dL AST (15-37) U/L ALT (12-78) U/L Alkaline Phosphatase (45-117) U/L Total Creatine Kinase (39-308) U/L CK-MB (CK-2) (0.5-3.6) ng/mL Troponin I (0.02-0.05) ng/mL B-Natriuretic Peptide 2388 H (0-100) pg/mL Total Protein (6.4-8.2) g/dL Albumin (3.4-5.0) g/dL Lipase (73-393) U/L Urine Color (Yellw/Straw) Urine Clarity (Clear) Urine pH (5.0-8.5) Ur Specific [place] (1.002-1.035) Urine Protein (Neg-Trace) mg/dL Urine Glucose (UA) (Negative) mg/dL Urine Ketones (Negative) mg/dL Urine Occult Blood (Negative) Urine Nitrate (Negative) Urine Bilirubin (Negative) Urine Urobilinogen (Less than 2) mg/dL Ur Leukocyte Esterase (Negative) Urine RBC (0-3) /hpf Urine WBC (0-5) /hpf Urine WBC Clumps (None) Urine Bacteria (None) /hpf Hyaline Casts (0-3) /lpf Urine Mucus (Occasional) /lpf Micro UA Comment Ur Microscopic Review Urine Culture Comments Nasal Screen MRSA (PCR) (Negative) Urine Opiates Screen (Neg) Ur Barbiturates Screen (Neg) Ur Amphetamines Screen (Neg) U Benzodiazepines Scrn (Neg) Urine Cocaine Screen (Neg) U Cannabinoids Screen (Neg) Serum Alcohol (0-5) mg/dL 04/25/18 04/25/18 04/25/18 Range/Units 00:48 00:48 04:15 WBC (4.0-11.0) th/mm3 RBC (4.50-5.90) mil/mm3 Hgb (13.0-17.0) gm/dL Hct (39.0-51.0) % MCV (80.0-100.0) fL MCH (27.0-34.0) pg MCHC (32.0-36.0) % RDW (11.6-17.2) % Plt Count (150-450) th/mm3 MPV (7.0-11.0) fL Neut % (Auto) (16.0-70.0) % Lymph % (Auto) (9.0-44.0) % [place] % (Auto) (0.0-8.0) % Eos % (Auto) (0.0-4.0) % Baso % (Auto) (0.0-2.0) % Neut # (Auto) (1.8-7.7) th/mm3 Lymph # (Auto) (1.0-4.8) th/mm3 [place] # (Auto) (0.0-0.9) th/mm3 Eos # (Auto) (0.0-0.4) th/mm3 Baso # (Auto) (0.0-0.2) th/mm3 WBC Differential Differential Comment PT (9.8-11.6) sec INR Ratio APTT (23.4-31.7) sec Puncture Site Patient Temperature O2 Saturation (90-100) % ABG pH (7.380-7.420) ABG pCO2 (38-42) mmHg ABG pO2 (61-120) mmHG ABG HCO3 (22-26) mmol/L ABG O2 Content (12.0-20.0) Vol % ABG Base Excess (-2-2) mmol/L ABG Methemoglobin (0-2) % Lucien Test Hemoglobin (12.0-16.0) G/DL Carboxyhemoglobin (0-4) % O2 Delivery Device Vent Setting Inspired O2 % Critical Value Sodium (136-145) meq/L Potassium (3.5-5.1) meq/L Chloride (98-107) meq/L Carbon Dioxide (21.0-32.0) meq/L Anion Gap (5-15) meq/L BUN (7-18) mg/dL Creatinine (0.60-1.30) mg/dL Estimated GFR (>89) mL/min POC Glucose (68-110) mg/dl Random Glucose (74-106) mg/dL Lactic Acid (0.4-2.0) mmol/L Calcium (8.5-10.1) mg/dL Calcium Adj for Albumin (8.5-10.1) mg/dL Phosphorus (2.5-4.9) mg/dL Magnesium (1.5-2.5) mg/dL Total Bilirubin (0.2-1.0) mg/dL AST (15-37) U/L ALT (12-78) U/L Alkaline Phosphatase (45-117) U/L Total Creatine Kinase (39-308) U/L CK-MB (CK-2) (0.5-3.6) ng/mL Troponin I (0.02-0.05) ng/mL B-Natriuretic Peptide (0-100) pg/mL Total Protein (6.4-8.2) g/dL Albumin (3.4-5.0) g/dL Lipase (73-393) U/L Urine Color [place]a (Yellw/Straw) Urine Clarity Cloudy H (Clear) Urine pH 5.0 (5.0-8.5) Ur Specific [place] 1.020 (1.002-1.035) Urine Protein 30 H (Neg-Trace) mg/dL Urine Glucose (UA) Negative (Negative) mg/dL Urine Ketones Negative (Negative) mg/dL Urine Occult Blood Negative (Negative) Urine Nitrate Negative (Negative) Urine Bilirubin Negative (Negative) Urine Urobilinogen 2.0 H (Less than 2) mg/dL Ur Leukocyte Esterase Negative (Negative) Urine RBC 2 (0-3) /hpf Urine WBC 8 H (0-5) /hpf Urine WBC Clumps Rare H (None) Urine Bacteria Few H (None) /hpf Hyaline Casts 91 (0-3) /lpf Urine Mucus Few H (Occasional) /lpf Micro UA Comment Cath-culture ind Ur Microscopic Review Not Reportable Urine Culture Comments Cath-cult indicated Nasal Screen MRSA (PCR) Not detected (Negative) Urine Opiates Screen Neg (Neg) Ur Barbiturates Screen Neg (Neg) Ur Amphetamines Screen Neg (Neg) U Benzodiazepines Scrn Neg (Neg) Urine Cocaine Screen Neg (Neg) U Cannabinoids Screen Neg (Neg) Serum Alcohol (0-5) mg/dL 04/25/18 04/25/18 04/25/18 Range/Units 05:29 09:47 10:05 WBC 12.6 H (4.0-11.0) th/mm3 RBC 4.97 (4.50-5.90) mil/mm3 Hgb 15.9 (13.0-17.0) gm/dL Hct 48.5 (39.0-51.0) % MCV 97.6 (80.0-100.0) fL MCH 32.0 (27.0-34.0) pg MCHC 32.8 (32.0-36.0) % RDW 17.7 H (11.6-17.2) % Plt Count 115 L (150-450) th/mm3 MPV 9.4 (7.0-11.0) fL Neut % (Auto) 89.7 H (16.0-70.0) % Lymph % (Auto) 1.2 L (9.0-44.0) % [place] % (Auto) 1.3 (0.0-8.0) % Eos % (Auto) 7.7 H (0.0-4.0) % Baso % (Auto) 0.1 (0.0-2.0) % Neut # (Auto) 11.3 H (1.8-7.7) th/mm3 Lymph # (Auto) 0.2 L (1.0-4.8) th/mm3 [place] # (Auto) 0.2 (0.0-0.9) th/mm3 Eos # (Auto) 1.0 H (0.0-0.4) th/mm3 Baso # (Auto) 0.0 (0.0-0.2) th/mm3 WBC Differential . Differential Comment Auto diff final PT (9.8-11.6) sec INR Ratio APTT (23.4-31.7) sec Puncture Site Right radial Patient Temperature 98.6 O2 Saturation 93 (90-100) % ABG pH 7.21 L* (7.380-7.420) ABG pCO2 49 H (38-42) mmHg ABG pO2 102 (61-120) mmHG ABG HCO3 19 L (22-26) mmol/L ABG O2 Content 22.6 H (12.0-20.0) Vol % ABG Base Excess -8.0 L (-2-2) mmol/L ABG Methemoglobin 1.9 (0-2) % Lucien Test Present Hemoglobin 17.3 H (12.0-16.0) G/DL Carboxyhemoglobin 0.4 (0-4) % O2 Delivery Device Ventilator Vent Setting Prvc16/500/1.0/+5 Inspired O2 100 % Critical Value Yes Sodium (136-145) meq/L Potassium (3.5-5.1) meq/L Chloride (98-107) meq/L Carbon Dioxide (21.0-32.0) meq/L Anion Gap (5-15) meq/L BUN (7-18) mg/dL Creatinine (0.60-1.30) mg/dL Estimated GFR (>89) mL/min POC Glucose (68-110) mg/dl Random Glucose (74-106) mg/dL Lactic Acid 1.7 (0.4-2.0) mmol/L Calcium (8.5-10.1) mg/dL Calcium Adj for Albumin (8.5-10.1) mg/dL Phosphorus (2.5-4.9) mg/dL Magnesium (1.5-2.5) mg/dL Total Bilirubin (0.2-1.0) mg/dL AST (15-37) U/L ALT (12-78) U/L Alkaline Phosphatase (45-117) U/L Total Creatine Kinase (39-308) U/L CK-MB (CK-2) (0.5-3.6) ng/mL Troponin I (0.02-0.05) ng/mL B-Natriuretic Peptide (0-100) pg/mL Total Protein (6.4-8.2) g/dL Albumin (3.4-5.0) g/dL Lipase (73-393) U/L Urine Color (Yellw/Straw) Urine Clarity (Clear) Urine pH (5.0-8.5) Ur Specific [place] (1.002-1.035) Urine Protein (Neg-Trace) mg/dL Urine Glucose (UA) (Negative) mg/dL Urine Ketones (Negative) mg/dL Urine Occult Blood (Negative) Urine Nitrate (Negative) Urine Bilirubin (Negative) Urine Urobilinogen (Less than 2) mg/dL Ur Leukocyte Esterase (Negative) Urine RBC (0-3) /hpf Urine WBC (0-5) /hpf Urine WBC Clumps (None) Urine Bacteria (None) /hpf Hyaline Casts (0-3) /lpf Urine Mucus (Occasional) /lpf Micro UA Comment Ur Microscopic Review Urine Culture Comments Nasal Screen MRSA (PCR) (Negative) Urine Opiates Screen (Neg) Ur Barbiturates Screen (Neg) Ur Amphetamines Screen (Neg) U Benzodiazepines Scrn (Neg) Urine Cocaine Screen (Neg) U Cannabinoids Screen (Neg) Serum Alcohol (0-5) mg/dL 04/25/18 04/25/18 04/25/18 Range/Units 10:05 10:05 11:53 WBC (4.0-11.0) th/mm3 RBC (4.50-5.90) mil/mm3 Hgb (13.0-17.0) gm/dL Hct (39.0-51.0) % MCV (80.0-100.0) fL MCH (27.0-34.0) pg MCHC (32.0-36.0) % RDW (11.6-17.2) % Plt Count (150-450) th/mm3 MPV (7.0-11.0) fL Neut % (Auto) (16.0-70.0) % Lymph % (Auto) (9.0-44.0) % [place] % (Auto) (0.0-8.0) % Eos % (Auto) (0.0-4.0) % Baso % (Auto) (0.0-2.0) % Neut # (Auto) (1.8-7.7) th/mm3 Lymph # (Auto) (1.0-4.8) th/mm3 [place] # (Auto) (0.0-0.9) th/mm3 Eos # (Auto) (0.0-0.4) th/mm3 Baso # (Auto) (0.0-0.2) th/mm3 WBC Differential Differential Comment PT (9.8-11.6) sec INR Ratio APTT (23.4-31.7) sec Puncture Site Art line Patient Temperature 98.6 O2 Saturation 86 L* (90-100) % ABG pH 7.19 L* (7.380-7.420) ABG pCO2 55 H* (38-42) mmHg ABG pO2 65 (61-120) mmHG ABG HCO3 20 L (22-26) mmol/L ABG O2 Content 19.5 (12.0-20.0) Vol % ABG Base Excess -6.8 L (-2-2) mmol/L ABG Methemoglobin 2.0 (0-2) % Lucien Test Hemoglobin 16.2 H (12.0-16.0) G/DL Carboxyhemoglobin 0.4 (0-4) % O2 Delivery Device Ventilator Vent Setting 16/600/1.0/peep5 Inspired O2 100 % Critical Value Yes Sodium 131 L (136-145) meq/L Potassium 5.8 H (3.5-5.1) meq/L Chloride 97 L (98-107) meq/L Carbon Dioxide 21.5 (21.0-32.0) meq/L Anion Gap 13 (5-15) meq/L BUN 94 H (7-18) mg/dL Creatinine 3.79 H (0.60-1.30) mg/dL Estimated GFR 14 L (>89) mL/min POC Glucose (68-110) mg/dl Random Glucose 130 H (74-106) mg/dL Lactic Acid (0.4-2.0) mmol/L Calcium 7.0 L* (8.5-10.1) mg/dL Calcium Adj for Albumin 9.4 (8.5-10.1) mg/dL Phosphorus 8.0 H (2.5-4.9) mg/dL Magnesium 1.9 (1.5-2.5) mg/dL Total Bilirubin 1.3 H (0.2-1.0) mg/dL AST 39 H (15-37) U/L ALT 16 (12-78) U/L Alkaline Phosphatase 124 H (45-117) U/L Total Creatine Kinase (39-308) U/L CK-MB (CK-2) (0.5-3.6) ng/mL Troponin I 0.94 H* (0.02-0.05) ng/mL B-Natriuretic Peptide 4185 H (0-100) pg/mL Total Protein 4.2 L (6.4-8.2) g/dL Albumin 1.0 L (3.4-5.0) g/dL Lipase (73-393) U/L Urine Color (Yellw/Straw) Urine Clarity (Clear) Urine pH (5.0-8.5) Ur Specific [place] (1.002-1.035) Urine Protein (Neg-Trace) mg/dL Urine Glucose (UA) (Negative) mg/dL Urine Ketones (Negative) mg/dL Urine Occult Blood (Negative) Urine Nitrate (Negative) Urine Bilirubin (Negative) Urine Urobilinogen (Less than 2) mg/dL Ur Leukocyte Esterase (Negative) Urine RBC (0-3) /hpf Urine WBC (0-5) /hpf Urine WBC Clumps (None) Urine Bacteria (None) /hpf Hyaline Casts (0-3) /lpf Urine Mucus (Occasional) /lpf Micro UA Comment Ur Microscopic Review Urine Culture Comments Nasal Screen MRSA (PCR) (Negative) Urine Opiates Screen (Neg) Ur Barbiturates Screen (Neg) Ur Amphetamines Screen (Neg) U Benzodiazepines Scrn (Neg) Urine Cocaine Screen (Neg) U Cannabinoids Screen (Neg) Serum Alcohol (0-5) mg/dL 04/25/18 04/25/18 Range/Units 13:10 14:10 WBC (4.0-11.0) th/mm3 RBC (4.50-5.90) mil/mm3 Hgb (13.0-17.0) gm/dL Hct (39.0-51.0) % MCV (80.0-100.0) fL MCH (27.0-34.0) pg MCHC (32.0-36.0) % RDW (11.6-17.2) % Plt Count (150-450) th/mm3 MPV (7.0-11.0) fL Neut % (Auto) (16.0-70.0) % Lymph % (Auto) (9.0-44.0) % [place] % (Auto) (0.0-8.0) % Eos % (Auto) (0.0-4.0) % Baso % (Auto) (0.0-2.0) % Neut # (Auto) (1.8-7.7) th/mm3 Lymph # (Auto) (1.0-4.8) th/mm3 [place] # (Auto) (0.0-0.9) th/mm3 Eos # (Auto) (0.0-0.4) th/mm3 Baso # (Auto) (0.0-0.2) th/mm3 WBC Differential Differential Comment PT (9.8-11.6) sec INR Ratio APTT (23.4-31.7) sec Puncture Site Art line Patient Temperature 98.6 O2 Saturation 88 L* (90-100) % ABG pH 7.17 L* (7.380-7.420) ABG pCO2 56 H* (38-42) mmHg ABG pO2 73 (61-120) mmHG ABG HCO3 19 L (22-26) mmol/L ABG O2 Content 20.5 H (12.0-20.0) Vol % ABG Base Excess -7.8 L (-2-2) mmol/L ABG Methemoglobin 1.9 (0-2) % Lucien Test Hemoglobin 16.6 H (12.0-16.0) G/DL Carboxyhemoglobin 0.4 (0-4) % O2 Delivery Device Ventilator Vent Setting 16/600/[id number] Inspired O2 100 % Critical Value Yes Sodium (136-145) meq/L Potassium (3.5-5.1) meq/L Chloride (98-107) meq/L Carbon Dioxide (21.0-32.0) meq/L Anion Gap (5-15) meq/L BUN (7-18) mg/dL Creatinine (0.60-1.30) mg/dL Estimated GFR (>89) mL/min POC Glucose (68-110) mg/dl Random Glucose (74-106) mg/dL Lactic Acid 1.9 (0.4-2.0) mmol/L Calcium (8.5-10.1) mg/dL Calcium Adj for Albumin (8.5-10.1) mg/dL Phosphorus (2.5-4.9) mg/dL Magnesium (1.5-2.5) mg/dL Total Bilirubin (0.2-1.0) mg/dL AST (15-37) U/L ALT (12-78) U/L Alkaline Phosphatase (45-117) U/L Total Creatine Kinase (39-308) U/L CK-MB (CK-2) (0.5-3.6) ng/mL Troponin I (0.02-0.05) ng/mL B-Natriuretic Peptide (0-100) pg/mL Total Protein (6.4-8.2) g/dL Albumin (3.4-5.0) g/dL Lipase (73-393) U/L Urine Color (Yellw/Straw) Urine Clarity (Clear) Urine pH (5.0-8.5) Ur Specific [place] (1.002-1.035) Urine Protein (Neg-Trace) mg/dL Urine Glucose (UA) (Negative) mg/dL Urine Ketones (Negative) mg/dL Urine Occult Blood (Negative) Urine Nitrate (Negative) Urine Bilirubin (Negative) Urine Urobilinogen (Less than 2) mg/dL Ur Leukocyte Esterase (Negative) Urine RBC (0-3) /hpf Urine WBC (0-5) /hpf Urine WBC Clumps (None) Urine Bacteria (None) /hpf Hyaline Casts (0-3) /lpf Urine Mucus (Occasional) /lpf Micro UA Comment Ur Microscopic Review Urine Culture Comments Nasal Screen MRSA (PCR) (Negative) Urine Opiates Screen (Neg) Ur Barbiturates Screen (Neg) Ur Amphetamines Screen (Neg) U Benzodiazepines Scrn (Neg) Urine Cocaine Screen (Neg) U Cannabinoids Screen (Neg) Serum Alcohol (0-5) mg/dL Imaging Data Radiologist's impression: Chest X-Ray 04/25/18 00:36 CONCLUSION: Radiographic pattern most suggestive of pulmonary edema. Abdomen/Pelvis CT 04/25/18 03:26 CONCLUSION: 1. Anasarca. 2. Small volume ascites. 3. Colonic diverticulosis. 4. Cholelithiasis. Cervical Spine CT 04/25/18 03:26 CONCLUSION: 1. Examination is degraded by motion artifact. 2. No gross fracture. 3. I cannot exclude subluxation at the C1-C2 articulation. Chest CT 04/25/18 03:26 CONCLUSION: 1. Cardiomegaly. 2. Bibasilar infiltrates. 3. Underlying chronic interstitial change. 4. Tiny bilateral pleural effusions. Head CT 04/25/18 03:26 CONCLUSION: 1. No acute intracranial abnormality. . Chest X-Ray 04/25/18 07:03 CONCLUSION: 1. Right IJ central line distal tip is in the SVC. There is no pneumothorax. 2. Stable interstitial opacities and airspace consolidation in the lower lung zones bilaterally. 3. During comparison with the chest CT performed today, there is a possible low -density mass in the right atrium could represent a solid mass or thrombus. However, the prior examination was performed without contrast and therefore this finding could be further evaluated with contrast-enhanced imaging or consider cardiac echo. ECG Data Attestation: I personally reviewed and interpreted this ECG as follows: Interpretation: The patient had an EKG done on arrival. The patient's EKG reveals atrial fibrillation with RVR, heart rate of 120, QRS duration 149 ms, QTC 416 ms. The patient has marked Right axis deviation, right bundle branch block is noted. No acute ST segment elevation. Discharge Plan Discharge Disposition Patient Disposition: ED Admit(ED Internal Use Only) Discharge Order Discharge Orders: ED Use Only Admit Order (Routine); Ordered 04/25/18 Ordered By: Arpita Cardozo Discharge Details Diagnosis: Respiratory failure, Hyperkalemia, Renal failure, Elevated troponin Physicians Team ED Provider: Arpita Cardozo Primary Care Provider: UNKNOWN, Attending Provider: Stacie Shankar Other Providers: Amando Webber ; Camron Cuevas Discharge Interventions Interventions: ED Discharge Assessment Last Done: 04/25/18 04:44 Status ED Status: Left Department Discharge Information Discharge Date/Time: 04/25/18 04:45
[2018-04-25] MEDS ORDERED: Aspirin 300 MG Supp RECTAL ONE (02:04)
[2018-04-25] MEDS ORDERED: Sodium Bicarbonate 8.4% Inj 50 MEQ/50 ML Syringe IV.PUSH ONE ×3 (02:13→14:45)
[2018-04-25] MEDS ORDERED: Calcium Chloride Inj 1 GM in Dextrose 5% in Water Inj 100 ML IV.SIG ONE ×2 (02:13)
[2018-04-25] MEDS ORDERED: Sodium Polystyrene Sulfonate/Sorbitol Liq 15 GM/60 ML UDC NG/OG ONE (02:14)
[2018-04-25] MEDS ORDERED: fentaNYL Citrate Inj 100 MCG/2 ML Ampul IV PUSH PRN (02:42)
[2018-04-25] MEDS ORDERED: Bisacodyl 10 MG Supp RECTAL PRN (02:42)
[2018-04-25] MEDS ORDERED: Acetaminophen 325 MG Tablet PO PRN (02:42)
[2018-04-25] MEDS ORDERED: Chlorhexidine Gluconate 2% 1 Pack (2 Cloths) TOPICAL PRN (04:00)
--- NOTE | 2018-04-25 04:27 | CT ---
EXAM DATE: 04/25/2018 4:10 AM EST AGE/SEX: 89 years / Male INDICATIONS: Trauma; fall. CLINICAL DATA: This is the patient's initial encounter. Patient reports that signs and symptoms have been present for 1 day and indicates a pain score of Nonresponsive. MEDICAL/SURGICAL HISTORY: Non-responsive. Non-responsive. RADIATION DOSE: 6.30 CTDI (mGy) ; Combined studies COMPARISON: No prior exams available for comparison. TECHNIQUE: Multiple contiguous axial images were obtained through the chest without contrast. Image s were obtained in suspended respiration using multiple row detector helical technique. Using automa nam exposure control and adjustment of the mA and/or kV according to patient size, radiation dose was kept as low as reasonably achievable to obtain optimal diagnostic quality images. DICOM format imag e data is available electronically for review and comparison. FINDINGS: Lungs: Coarse interstitial markings are seen within the subpleural aspects of both lungs. Passive at electasis noted with bibasilar dense consolidations.. Mediastinum: Significant cardiomegaly. No pericardial effusion. Significant coronary artery atherosc lerotic calcifications. No mass or adenopathy.. Endotracheal tube observed with the tip 2 cm from the ted. Pleurae: Tiny posterior layering pleural effusions bilaterally.. Axillae: Unremarkable. Bony Structures: A degenerative spine.. Miscellaneous: The examination was extended to include the upper abdomen, and both adrenal glands ar e normal in size and configuration. CONCLUSION: 1. Cardiomegaly. 2. Bibasilar infiltrates. 3. Underlying chronic interstitial change. 4. Tiny bilateral pleural effusions. Electronically signed by: Tico Garcia MD 04/25/2018 4:26 AM EST
--- NOTE | 2018-04-25 04:30 | CT ---
EXAM DATE: 04/25/2018 4:12 AM EST AGE/SEX: 89 years / Male INDICATIONS: Trauma; fall. CLINICAL DATA: This is the patient's initial encounter. Patient reports that signs and symptoms have been present for 1 day and indicates a pain score of Nonresponsive. MEDICAL/SURGICAL HISTORY: Non-responsive. Non-responsive. RADIATION DOSE: 6.30 CTDI (mGy) ; Combined studies COMPARISON: No prior exams available for comparison. TECHNIQUE: Multiple contiguous axial images were obtained through the abdomen. Images were obtained using multiple row detector helical technique. Using automated exposure control and adjustment of the mA and/or kV according to patient size, radiation dose was kept as low as reasonably achievable to o btain optimal diagnostic quality images. DICOM format image data is available electronically for rev iew and comparison. FINDINGS: Lower Lungs: See the CT of the thorax dictated separately.. Liver: The liver has a homogeneous density without space-occupying lesion. There is no dilation of th e biliary tree. Small calcified gallstones within an otherwise normal-appearing gallbladder. Spleen: Homogeneous density without enlargement. Pancreas: Unremarkable without mass or calcification. Kidneys: Normal in size and shape. No evidence of mass or hydronephrosis. Adrenal Glands: Unremarkable. Aorta: Diffuse atherosclerotic plaque without aneurysmal dilation. Bowel/Mesentery: Small volume ascites. Multiple colonic diverticuli most pronounced within the sigmo id region. No acute inflammation observed. The bowel loops are grossly unremarkable. The cecum and si gmoid colon have a normal configuration. Abdominal Wall: Diffuse anasarca. Intact. Retroperitoneum: No evidence of adenopathy in the retrocrural, para-aortic, or deep pelvic regions. Bladder: Contours are smooth. Reproductive Organs: No abnormal masses or calcifications seen. Inguinal: The inguinal region is unremarkable without evidence of adenopathy. Bony Structures: A degenerative lumbar spine with mild scoliotic curvature. CONCLUSION: 1. Anasarca. 2. Small volume ascites. 3. Colonic diverticulosis. 4. Cholelithiasis. Electronically signed by: Tico Garcia MD 04/25/2018 4:29 AM EST
--- NOTE | 2018-04-25 04:32 | CT ---
EXAM DATE: 04/25/2018 4:06 AM EST AGE/SEX: 89 years / Male INDICATIONS: Trauma; fall. CLINICAL DATA: This is the patient's initial encounter. Patient reports that signs and symptoms have been present for 1 day and indicates a pain score of Nonresponsive. MEDICAL/SURGICAL HISTORY: Non-responsive. Non-responsive. RADIATION DOSE: 56.35 CTDI (mGy) COMPARISON: No prior exams available for comparison. TECHNIQUE: CT of the head without contrast. Using automated exposure control and adjustment of the mA and/or kV according to patient size, radiation dose was kept as low as reasonably achievable to ob tain optimal diagnostic quality images. DICOM format image data is available electronically for revi ew and comparison. FINDINGS: Cerebrum: Atrophy. The ventricles are normal for age. No evidence of midline shift, mass lesion, he morrhage or acute infarction. No extraaxial fluid collections are seen. Posterior Fossa: The cerebellum and brainstem are intact. The 4th ventricle is midline. The cerebe llopontine angle is unremarkable. Extracranial: The visualized portion of the orbits is intact. Skull: The calvaria is intact. No evidence of skull fracture. CONCLUSION: 1. No acute intracranial abnormality. . Electronically signed by: Tico Garcia MD 04/25/2018 4:30 AM EST
--- NOTE | 2018-04-25 04:36 | CT ---
EXAM DATE: 04/25/2018 4:09 AM EST AGE/SEX: 89 years / Male INDICATIONS: Trauma; fall. CLINICAL DATA: This is the patient's initial encounter. Patient reports that signs and symptoms have been present for 1 day and indicates a pain score of Nonresponsive. MEDICAL/SURGICAL HISTORY: Non-responsive. Non-responsive. RADIATION DOSE: 22.25 CTDI (mGy) COMPARISON: No prior exams available for comparison. TECHNIQUE: Contiguous axial images were obtained using helical multirow detector technique. The vol umetric data was post-processed with multiplanar reconstruction in oblique axial, sagittal, and coron al planes. Using automated exposure control and adjustment of the mA and/or kV according to patient s ize, radiation dose was kept as low as reasonably achievable to obtain optimal diagnostic quality arianna ges. DICOM format image data is available electronically for review and comparison. FINDINGS: Motion artifact degrades exam. Vertebrae: Normal vertebral body height. Alignment: The C1 is rotated relative to the C2. The patient's head is considerably turned as well.. Calcified atherosclerotic plaque throughout the carotid arteries. C2-3: The bony spinal canal is normal in size. No evidence of disc bulge or herniation. The neural foramina are bilaterally patent. C3-4: A broad-based disc osteophyte complex eccentric to the left totally effaces the left lateral r ecess. This in combination with bony uncovertebral hypertrophy generates severe left and mild right n eural foraminal narrowing.. C4-5: The bony spinal canal is normal in size. No evidence of disc bulge or herniation. Moderate [place] uncovertebral hypertrophy generating moderate bilateral neural foraminal narrowing. C5-6: A mild broad-based disc osteophyte complex eccentric to the right. Prominent bony uncovertebra l hypertrophy on the right causes significant right neural foraminal narrowing and moderate right lat eral recess narrowing. Mild left neural foraminal narrowing.. C6-7: The bony spinal canal is normal in size. No evidence of disc bulge or herniation. Bony uncove rtebral hypertrophy generates moderate bilateral neural foraminal narrowing or area C7-T1: The bony spinal canal is normal in size. No evidence of disc bulge or herniation. The neura l foramina are bilaterally patent. CONCLUSION: 1. Examination is degraded by motion artifact. 2. No gross fracture. 3. I cannot exclude subluxation at the C1-C2 articulation. Electronically signed by: Tico Garcia MD 04/25/2018 4:35 AM EST
[2018-04-25] MEDS: DOBUTamine 250 MG/250 ML Premx 250 MG/250 ML BAG IV.CONT SCH ×3 (05:42→23:41)
[2018-04-25 05:43] LABS: ABG PCO2 49 mmHg (38-42); ABG PO2 102 mmHG (61-120)
[2018-04-25] MEDS ORDERED: Milrinone Inj 20 MG in Sodium Chlor 0.9% Inj 80 ML IV.CONT SCH ×2 (07:00→09:00)
--- NOTE | 2018-04-25 07:04 | P.PCN ---
Date of procedure: 04/25/18 Procedure: DATE: 04/25/18 PROCEDURE: Left femoral arterial catheter placement INDICATION: Shock in need of continuous hemodynamic monitoring. DETAILS OF PROCEDURE Initially attempted a right radial site unsuccessfully. The patient was placed in supine position. The skin was cleansed with Chloraprep. Additional barrier precautions included large sterile drape, sterile gloves, sterile gown, face mask, and hat. 1% lidocaine was used for local anesthesia. Under direct ultrasound guidnce and on the first attempt, the artery was accessed with an introducer needle. The guide wire was advanced. Using Seldinger technique 16- gauge gauge arterial catheter was placed. The guide wire was removed. The catheter was connected to a transducer line and flushed with saline. The video monitor displayed normal arterial wave forms. The catheter was secured with 2-0 silk. A sterile dressing with antibiotic disc was applied. ESTIMATED BLOOD LOSS: minimal COMPLICATIONS: None
--- NOTE | 2018-04-25 07:04 | P.HPCC ---
History of Present Illness Service: Critical care medicine Primary Care Physician: UNKNOWN Chief Complaint: generalized weakness History of Present Illness: 72-year-old male with past medical history of COPD on 3 L home O2, diastolic heart failure, severe pulmonary hypertension, CKD stage IV, atrial fibrillation, prior alcohol dependence, prior tobacco abuse. His states that he has had generalized weakness for 3-4 days with poor p.o. intake. Tonight he had a bowel movement with diarrhea and afterwards slid off the toilet. He had no loss of consciousness but she noticed he had significantly worsening shortness of breath and EVAC was summoned. When EVAC arrived he had sats in the 80s despite nonrebreather. He was intubated after receiving etomidate and Versed. In the ED he was hypotensive on arrival and dopamine was initiated which is currently running at 28 mcg/kg/min. He has CKD with creatinine 1.9-2.2. Currently his creatinine is 4 with BUN 94 with potassium 6.4. His states he is "always short of breath" but it was worse over the last 2 weeks with increasing peripheral edema. She went to the supervisor hot dip tinning Dr. Iniguez who added metolazone Wednesday/Wednesday/Wednesday to his current regimen of spironolactone and torsemide. He was scheduled to have follow-up labs tomorrow. No fevers or chills. Inpatient Certification: I certify that the inpatient services were ordered in accordance with Medicare regulations governing the order. This includes certification that hospital inpatient services are reasonable and necessary and in the case of services not specified as inpatient-only under 42 CFR 419.22(n), that they are appropriately provided as inpatient services in accordance to with the 2-midnight benchmark under 43 CFR 412.3(e) Estimated Total Length of Stay (Days): 10 Plans for Post Hospital Care: Not yet determined Review of Systems All other systems reviewed negative except as stated in HPI PMFSH - History History Provided By: Family Member - Medical History Medical History: Medical History (Last Updated 04/25/18 @ 09:04 by Stacie Shankar MD) CKD (chronic kidney disease) stage 4, GFR 15-29 ml/min Diastolic heart failure EtOH dependence Gout Hypothyroidism Pulmonary HTN Tobacco abuse - Surgical History Surgical History: Surgical History (Last Updated 04/25/18 @ 09:03 by Stacie Shankar MD) Hx of appendectomy - Family History Family History: Family History (Last Updated 04/25/18 @ 09:04 by Stacie Shankar MD) Other Unknown family medical history - Tobacco History Smoking Status: Former smoker Packs Per Day: 1.5 Years Smoked: 40 Smoking End Date: 2000 - Alcohol History How Often Do You Have a Drink Containing Alcohol: Never - Substance Use History Substance History: Past History - Travel History Recent Travel in the [place] Within the Last 8 Weeks: No Recent Travel Out of the Country Within the Last 8 Weeks: No - Immunization History Tetanus Immunization: Unable to Assess Medications and Allergies Active Medications: Active Medications Acetaminophen (Tylenol) 650 mg PO Q6H PRN PRN Reason: PAIN 1-10 AND/OR FEVER >101F Al Hydroxide/Mg Hydroxide (Milk Of Magnbailee Liq) 30 ml PO Q12H PRN PRN Reason: Mild Constipation Albuterol (Albuterol Neb (Prn)) 2.5 mg NEB Q2HR NEB PRN PRN Reason: SHORTNESS OF BREATH/WHEEZING Albuterol (Duoneb Neb (Jose)) 1 ampul NEB Q6HR NEB JOSE Last Admin: 04/25/18 03:10 Dose: 1 ampul Bisacodyl (Dulcolax Supp) 10 mg RECTAL DAILY PRN PRN Reason: SEVERE CONSITIPATION Chlorhexidine Gluconate (Chlorhexidine 2% Cloth) 3 pack TOPICAL DAILY@0400 JOSE Stop: 04/30/18 03:59 Chlorhexidine Gluconate (Chlorhexidine 2% Cloth) 3 pack TOPICAL DAILY@0400 PRN PRN Reason: Extra cloth needed Stop: 04/30/18 03:59 Fentanyl Citrate (Fentanyl Inj) 50 mcg IV PUSH Q1H PRN PRN Reason: Pain scale 6-10, &/or sedation Fentanyl (Fentanyl 10 Mcg/Ml Premix Drip) 2,500 mcg in 250 mls @ 5 mls/hr IV.SIG TITRATE PRN; Protocol PRN Reason: Per Protocol Last Titration: 04/25/18 01:43 Dose: 200 mcg/hr, 20 mls/hr Dopamine HCl/Dextrose (Dopamine 800 Mg/500 Ml Premix) 800 mg in 500 mls @ 11.25 mls/hr IV.CONT TITRATE PRN; Protocol PRN Reason: Per Protocol Aztreonam 1,000 mg/ Sodium (Chloride) 100 mls @ 200 mls/hr IV.SIG Q12H JOSE Norepinephrine Bitartrate (Levophed-Dextrose 4 Mg/250 Ml Drip) 4 mg in 250 mls @ 7.5 mls/hr IV.SIG TITRATE PRN; Protocol PRN Reason: Per Protocol Dobutamine HCl/Dextrose (Dobutamine 250 Mg/250 Ml Premix) 250 mg in 250 mls @ 14.7 mls/hr IV.CONT .Q17H1M [facility] Last Admin: 04/25/18 05:42 Dose: 2.5 mcg/kg/min, 14.7 mls/hr Milrinone Lactate 20 mg/ (Sodium Chloride) 100 mls @ 0 mls/hr IV.CONT .Q0M [facility] ; Protocol Lactulose (Lactulose Liq) 30 ml PO DAILY PRN PRN Reason: SEVERE CONSITIPATION Midazolam HCl (Versed Inj) 2 mg IV.PUSH Q1H PRN PRN Reason: SEDATION Ondansetron HCl (Zofran Inj) 4 mg IV.PUSH Q6H PRN PRN Reason: NAUSEA OR VOMITING Pantoprazole Sodium (Protonix Inj) 40 mg IV.PUSH DAILY [facility] Senna/Docusate Sodium (Sharon-Colace) 1 tab PO BID [facility] Sennosides (Senokot) 17.2 mg PO Q12H PRN PRN Reason: Moderate Constipation Sodium Chloride (Ns Flush) 2 ml IV.FLUSH PRN PRN PRN Reason: FLUSH AFTER USING IV ACCESS Sodium Chloride (Ns Flush) 2 ml IV.FLUSH BID [facility] Terbutaline Sulfate (Brethine Inj) 1 mg SQ ONCE PRN PRN Reason: Extravasation Terbutaline Sulfate (Brethine Inj) 1 mg SQ UNSCH PRN PRN Reason: For Extravasation Allergies Allergy/AdvReac Type Severity Reaction Status Date / Time ciprofloxacin [From Cipro] Allergy rash Verified 04/25/18 00:36 Home Medications Medication Instructions Recorded Confirmed Type Unable to Obtain Home Meds 04/25/18 04/25/18 History Results - Labs CBC & Chem 7: 04/25/18 00:48 04/25/18 00:48 Labs: Short CBC 04/25/18 Range/Units 00:48 WBC 13.5 H (4.0-11.0) th/mm3 Hgb 16.2 (13.0-17.0) gm/dL Hct 48.4 (39.0-51.0) % Plt Count 129 L (150-450) th/mm3 BMP 04/25/18 00:48 Sodium 131 L Potassium 6.4 H Chloride 98 Carbon Dioxide 21.0 BUN 94 H Creatinine 4.01 H Calcium 7.4 L* Cardiac Enzymes 04/25/18 Range/Units 00:48 Total Creatine Kinase 261 (39-308) U/L CK-MB (CK-2) 10.9 H (0.5-3.6) ng/mL Troponin I 0.66 H* (0.02-0.05) ng/mL Liver Function 04/25/18 Range/Units 00:48 Total Bilirubin 1.0 (0.2-1.0) mg/dL AST 43 H (15-37) U/L ALT 18 (12-78) U/L Alkaline Phosphatase 121 H (45-117) U/L Albumin 1.1 L (3.4-5.0) g/dL Urine 04/25/18 Range/Units 00:48 Urine Color Alla (Yellw/Straw) Urine Clarity Cloudy H (Clear) Urine pH 5.0 (5.0-8.5) Ur Specific Downey 1.020 (1.002-1.035) Urine Protein 30 H (Neg-Trace) mg/dL Urine Glucose (UA) Negative (Negative) mg/dL - Imaging Impressions Chest X-Ray 04/25/18 00:36 CONCLUSION: Radiographic pattern most suggestive of pulmonary edema. Abdomen/Pelvis CT 04/25/18 03:26 CONCLUSION: 1. Anasarca. 2. Small volume ascites. 3. Colonic diverticulosis. 4. Cholelithiasis. Cervical Spine CT 04/25/18 03:26 CONCLUSION: 1. Examination is degraded by motion artifact. 2. No gross fracture. 3. I cannot exclude subluxation at the C1-C2 articulation. Chest CT 04/25/18 03:26 CONCLUSION: 1. Cardiomegaly. 2. Bibasilar infiltrates. 3. Underlying chronic interstitial change. 4. Tiny bilateral pleural effusions. Head CT 04/25/18 03:26 CONCLUSION: 1. No acute intracranial abnormality. . Exam Vital signs: Vital Signs 04/25/18 00:32 04/25/18 00:33 04/25/18 00:36 Temperature Pulse Rate 116 H 112 H Respiratory Rate 16 16 Blood Pressure 110/74 121/80 Pulse Oximetry 100 100 04/25/18 00:45 04/25/18 01:14 04/25/18 01:19 Temperature 96.5 F L Pulse Rate 110 H 115 H Respiratory Rate 20 16 16 Blood Pressure 108/66 110/67 Pulse Oximetry 99 99 99 04/25/18 02:44 04/25/18 03:00 04/25/18 03:08 Temperature Pulse Rate 111 H 114 H Respiratory Rate 16 16 Blood Pressure 109/70 Pulse Oximetry 100 96 04/25/18 04:01 04/25/18 04:44 Temperature Pulse Rate Respiratory Rate 17 16 Blood Pressure Pulse Oximetry 98 Intake & Output 04/24/18 04/25/18 04/25/18 18:59 06:59 18:59 Intake Total 500 / 500 Balance 500 / 500 Weight 98 kg Intake: IV 500 / 500 NS Inj 500 ML @ Wide Open IV. 500 / 500 SIG BOLUS ONE Rx#:[id number] Other: Weight On Admission 98 kg Narrative: GENERAL: Chronically ill-appearing male who is orotracheally intubated. SKIN: Multiple ecchymosis over arms, coalescing bruises overlying the right upper extremity. HEAD: Atraumatic. Normocephalic. EYES: Pupils equal and round, pinpoint and sluggishly reactive. ENT: No nasal bleeding or discharge. Mucous membranes pink and moist. NECK: Trachea midline. +JVD CARDIOVASCULAR: irregular, no mrg appreciated. RESPIRATORY: On mechanical ventilation. Rales bibasilar. No wheeze. GASTROINTESTINAL: Abdomen soft, non-tender. Anasarca present over abdominal and thoracic wall and lower extremities. MUSCULOSKELETAL: Extremities without clubbing, cyanosis. Anasarca. NEUROLOGICAL: Eyes closed, minimal withdrawal of BUE to noxious stimuli. Septic Shock Reassessment Septic shock perfusion: reassessment completed Caprini VTE Risk Assessment Caprini VTE Risk Assessment: Moderate/High Risk (score >= 2) Caprini Risk Assessment Model: Point Value = 1 Point Value = 2 Point Value = 3 Point Value = 5 Age 41-60 Minor surgery BMI > 25 kg/m2 Swollen legs Varicose veins or History of unexplained or recurrent spontaneous Oral contraceptives or hormone replacement Sepsis (< 1 month) Serious lung disease, including pneumonia (< 1 month) Abnormal pulmonary function Acute myocardial infarction Congestive heart failure (< 1 month) History of inflammatory bowel disease Medical patient at bed rest Age 61-74 Arthroscopic surgery Major open surgery (> 45 min) Laparoscopic surgery (> 45 min) Malignancy Confined to bed (> 72 hours) Immobilizing plaster cast Central venous access Age >= 75 History of VTE Family history of VTE Factor V Leiden Prothrombin [id number] Lupus anticoagulant Anticardiolipin antibodies Elevated serum homocysteine Heparin-induced thrombocytopenia Other congenital or acquired thrombophilia Stroke (< 1 month) Elective arthroplasty Hip, pelvis, or leg fracture Acute spinal cord injury (< 1 month) Prophylaxis Regimen: Total Risk Factor Score Risk Level Prophylaxis Regimen 0-1 Low Early ambulation 2 Moderate Order ONE of the following: *Sequential Compression Device (SCD) *Heparin 5000 units SQ BID 3-4 Higher Order ONE of the following medications: *Heparin 5000 units SQ TID *Enoxaparin/Lovenox 40 mg SQ daily (WT < 150 kg, CrCl > 30 mL/min) *Enoxaparin/Lovenox 30 mg SQ daily (WT < 150 kg, CrCl > 10-29 mL/min) *Enoxaparin/Lovenox 30 mg SQ BID (WT < 150 kg, CrCl > 30 mL/min) AND/OR *Sequential Compression Device (SCD) 5 or more Highest Order ONE of the following medications: *Heparin 5000 units SQ TID (Preferred with Epidurals) *Enoxaparin/Lovenox 40 mg SQ daily (WT < 150 kg, CrCl > 30 mL/min) *Enoxaparin/Lovenox 30 mg SQ daily (WT < 150 kg, CrCl > 10-29 mL/min) *Enoxaparin/Lovenox 30 mg SQ BID (WT < 150 kg, CrCl > 30 mL/min) AND *Sequential Compression Device (SCD) Assessment and Plan - Assessment and Plan Plan: 72-year-old male with past medical history of COPD on home oxygen, diastolic heart failure, severe pulmonary hypertension, CKD stage IV. He had worsening respiratory symptoms and peripheral edema which prompted outpatient efforts to increase diuresis through torsemide, spironolactone and then addition of metolazone. Through more aggressive diuresis efforts, his creatinine has worsened and yet he has findings of pulmonary edema, cor pulmonale and cardiogenic shock. His condition appears terminal, which I discussed with his . From my standpoint he is not a dialysis candidate. He is known to Dr. Webber and will request his input as well. indicates that his CODE STATUS should be changed to DO NOT RESUSCITATE. NEURO: Fentanyl drip for analgosedation Versed 2 mg IV push as needed RASS -2 RESP: Acute respiratory failure Pulmonary fibrosis Bronchiectasis PRVC, increased TV in attempt to correct respiratory acidosis. Will keep resp rate at 16, believe higher than that would contribute to air trapping. Duoneb q6 hours. Albuterol every 2 hours CV: Cardiogenic shock Cor pulmonale Severe pulmonary hypertension Atrial fibrillation Bedside cardiac ultrasound demonstrates dilated, failed RV. No change in IVC with respiratory cycle so does not appear he would tolerate fluid. LVEF appears normal. Hypotensive despite dopamine 20 mg/kg/min. Added dobutamine and levophed. Will transition from dobutamine to milrinone. Not candidate for Flotrac due to Afib. Check CVP monitoring. Placed art line for hemodynamic monitoring. GI: OGT to [facility]. FEN/RENAL: ELOINA overlying CKD Acute hyperkalemia Chronic protein energy malnutrition Given calcium chloride 1 g IV, Kayexalate 30 mg p.o., bicarb 100 mEq IV. Follow-up BMP. Lang in place He has worsening renal failure despite efforts at diuresis and yet still has overload of the RV. I doubt that he would tolerated HD. His condition appears terminal. He is well known to Dr. Webber and therefore appreciate his input. ID: UTI UA with positive WBCs and few bacteria. Follow-up blood and urine culture. Has history of hives with cefuroxime. We will continue aztreonam 1 g IV every 8 hours. HEME: Hemoglobin is normal. May be relatively hemoconcentrated following diuresis. ENDO: Euglycemic. PROPH: SCDs/heparin 5000 units subcu every 12 hours for DVT prophylaxis. Protonix 40 mg IV daily for stress ulcer prophylaxis ACCESS: Inserted R IJ CVL 04/25/18 #1. Left femoral art line placed 04/25/18 #1 Patient is critically ill with hypotension requiring emergent central line and art line placement there is. He is at high risk for further deterioration and . I have updated his at bedside. DO NOT RESUSCITATE. Critical care time 83 minutes exclusive of separately billable procedures. H&P: Quality - VTE Deep Vein Thrombosis/Pulmonary Embolism Present on Admission: No
--- NOTE | 2018-04-25 07:04 | P.PCN ---
Date of procedure: 04/25/18 Procedure: DATE: 04/25/18 CENTRAL LINE PLACEMENT: Right internal jugular vein. Ultrasound-guided INDICATION: Central venous access CONSENT Informed consent for procedure was obtained from patient's after discussion of risk, benefits, alternatives. DESCRIPTION OF THE PROCEDURE The patient was placed in supine position, mild Trendelenburg. The skin was cleansed with Chloraprep. Additional barrier precautions included large sterile drape, sterile gloves, sterile gown, face mask, and hat. 1 % lidocaine was used for local anesthesia. Under direct ultrasound guidance and on single attempt, the vein was accessed with an introducer needle. The guide wire was advanced and the tract was dilated. Using Seldinger technique a 7 Uzbek 20 cm antimicrobial coated triple-lumen catheter was advanced to a depth of 17 centimeters. The guide wire was removed. All ports had good return of dark venous blood and flushed easily with saline. The central line was secured with 2.0 silk. A sterile dressing with antibiotic disc was applied. ESTIMATED BLOOD LOSS: Minimal COMPLICATIONS: No apparent complications. STAT chest x-ray demonstrates satisfactory central venous line position without apparent complication
[2018-04-25] MEDS: Chlorhexidine Gluconate 2% 1 Pack (2 Cloths) TOPICAL SCH (07:40)
--- NOTE | 2018-04-25 07:41 | XR ---
EXAM DATE: 04/25/2018 7:29 AM EST AGE/SEX: 89 years / Male INDICATIONS: Central Line placement. CLINICAL DATA: This is the patient's subsequent encounter. Patient reports that signs and symptoms h ave been present for 1 day and indicates a pain score of Nonresponsive. MEDICAL/SURGICAL HISTORY: Non-responsive. Non-responsive. COMPARISON: [facility] [place], CT CHEST W/O CONTRAST, 04/25/2018. . FINDINGS: Portable AP view of the chest demonstrates cardiac silhouette size at the upper limits for normal wit h calcification of the aorta. Endotracheal tube tip is at the aortic knob level and nasogastric tube courses beyond the GE junction. Right IJ central line is present in distal tip is in the right atrium . EKG lines overlie the patient. There are interstitial opacities and airspace consolidation in the l ower lung zones bilaterally. Small bilateral pleural based opacities are present. There is no pneumot horax. CONCLUSION: 1. Right IJ central line distal tip is in the SVC. There is no pneumothorax. 2. Stable interstitial opacities and airspace consolidation in the lower lung zones bilaterally. 3. During comparison with the chest CT performed today, there is a possible low-density mass in the right atrium could represent a solid mass or thrombus. However, the prior examination was performed w ithout contrast and therefore this finding could be further evaluated with contrast-enhanced imaging or consider cardiac echo. Electronically signed by: Mark Monzon MD 04/25/2018 7:40 AM EST
[2018-04-25] MEDS: Pantoprazole Inj 40 MG Vial IV.PUSH SCH (09:00)
[2018-04-25 10:28] LABS: Baso % (Auto) 0.1 % (0.0-2.0); Eos % (Auto) 7.7 % (0.0-4.0); Hematocrit 48.5 % (39.0-51.0); Hemoglobin 15.9 gm/dL (13.0-17.0); Lymph # (Auto) 0.2 th/mm3 (1.0-4.8); Lymph % (Auto) 1.2 % (9.0-44.0); Mean Corpuscular HGB Conc 32.8 % (32.0-36.0); Mean Corpuscular Volume 97.6 fL (80.0-100.0); Mean Platelet Volume 9.4 fL (7.0-11.0); Mono # (Auto) 0.2 th/mm3 (0.0-0.9); Mono % (Auto) 1.3 % (0.0-8.0); Neut # (Auto) 11.3 th/mm3 (1.8-7.7); Neut % (Auto) 89.7 % (16.0-70.0); Platelet Count 115 th/mm3 (150-450); Red Blood Count 4.97 mil/mm3 (4.50-5.90); Red Cell Distribution Width 17.7 % (11.6-17.2); White Blood Count 12.6 th/mm3 (4.0-11.0)
[2018-04-25 11:06] LABS: Carbon Dioxide 21.5 meq/L (21.0-32.0); Magnesium 1.9 mg/dL (1.5-2.5); Potassium 5.8 meq/L (3.5-5.1); Total Protein 4.2 g/dL (6.4-8.2)
[2018-04-25] MEDS: Senna/Docusate Sodium 8.6/50 MG Tablet PO SCH ×2 (11:08→23:42)
[2018-04-25 11:11] LABS: Troponin I 0.94 ng/mL (0.02-0.05)
--- NOTE | 2018-04-25 11:17 | ECHRPT ---
Indication: SHORTNESS OF BREATH CONCLUSIONS The left ventricular systolic function is normal with an estimated ejection fraction in the range of 60-65%. Normal left ventricular size. Wall thickness is normal. No definite regional wall motion abnormalities are present. There is a flattened septum throughout the cardiac cycle consistent with right ventricle pressure ov erload. The right ventricle is moderately to severely dilated. The right ventricular systoilc function is s everely decreased. The left atrial size is mildly dilated. The right atrial size is mildly dilated. Trace mitral valve regurgitation. Minimal aortic valve sclerosis is present. Trace aortic valve regurgitation. There is mild tricuspid valve regurgitation. The estimated pulmonary arterial pressure is 66 mmHg. BP: / HR: Rhythm: MEASUREMENTS (Male / Female) Normal Values Technical Quality: 2D ECHO LV Diastolic Diameter PLAX 4.9 cm 4.2 - 5.9 / 3.9 - 5.3 cm LV Systolic Diameter PLAX 3.6 cm IVS Diastolic Thickness 1.1 cm 0.6 - 1.0 / 0.6 - 0.9 cm LVPW Diastolic Thickness 1.1 cm 0.6 - 1.0 / 0.6 - 0.9 cm LV Relative Wall Thickness 0.4 LVOT Diameter 2.3 cm LA Systolic Diameter LX 4.3 cm 3.0 - 4.0 / 2.7 - 3.8 cm M-MODE Aortic Root Diameter MM 3.0 cm LA Systolic Diameter MM 3.8 cm LA Ao Ratio MM 1.3 AV Cusp Separation MM 2.5 cm DOPPLER AV Peak Velocity 88.2 cm/s AV Peak Gradient 3.1 mmHg AI Peak Velocity 137.0 cm/s AI Peak Gradient 7.5 mmHg AI Pressure Half Time 713.0 ms LVOT Peak Velocity 73.5 cm/s LVOT Peak Gradient 2.2 mmHg AV Area Cont Eq pk 3.5 cm MV Area PHT 5.6 cm Mitral E Point Velocity 82.4 cm/s Mitral A Point Velocity 27.1 cm/s Mitral E to A Ratio 3.0 LV E' Lateral Velocity 11.0 cm/s Mitral E to LV E' Lateral Ratio 7.5 LV E' Septal Velocity 7.5 cm/s Mitral E to LV E' Septal Ratio 11.0 TR Peak Velocity 375.0 cm/s TR Peak Gradient 56.3 mmHg Right Atrial Pressure 10.0 mmHg Pulmonary Artery Systolic Pressu 66.3 mmHg Right Ventricular Systolic Press 66.3 mmHg PV Peak Velocity 70.6 cm/s PV Peak Gradient 2.0 mmHg FINDINGS LEFT VENTRICLE The left ventricular systolic function is normal with an estimated ejection fraction in the range of 60-65%. Normal left ventricular size. Wall thickness is normal. No definite regional wall motion abnormalities are present. There is a flattened septum throughout the cardiac cycle consistent with right ventricle pressure ov erload. RIGHT VENTRICLE The right ventricle is moderately to severely dilated. The right ventricular systoilc function is severely decreased. LEFT ATRIUM The left atrial size is mildly dilated. RIGHT ATRIUM The right atrial size is mildly dilated. ATRIAL SEPTUM Normal atrial septal thickness without atrial level shunting by limited color doppler interrogation. AORTA The aortic root and proximal ascending aorta are normal in size on limited imaging. MITRAL VALVE Structurally normal mitral valve. Trace mitral valve regurgitation. AORTIC VALVE Trileaflet aortic valve. Minimal aortic valve sclerosis is present. Trace aortic valve regurgitation. TRICUSPID VALVE Structurally normal tricuspid valve. There is mild tricuspid valve regurgitation. The estimated pulmonary arterial pressure is 66 mmHg. PULMONARY VALVE Trivial pulmonary valve regurgitation. VESSELS The inferior vena cava is normal in size. PERICARDIUM No pericardial effusion. Roly Carnes MD (Electronically Signed) Final Date:25 April 2018 11:16
[2018-04-25] MEDS ORDERED: Midazolam 100 MG/100 ML Inj 100 MG/100 ML BAG IV.CONT PRN (11:36)
--- NOTE | 2018-04-25 11:42 | P.CONNP ---
<Chadd Mcgraw - Last Filed: 04/25/18 13:00> History of Present Illness Reason for Consult: CKD Primary Care Provider: UNKNOWN Chief Complaint: generalized weakness History of Present Illness: Patient is a 72 year old male with past medical history of COPD on oxygen, diastolic heart failure, severe pulmonary hypertension, CKD stage IV. Patient was on mechanical ventilation when seen, on 80% FiO2. I was unable to obtain a review of systems due to patient's condition. From reviewing previous notes patient was having worsening SOB and edema for the past several weeks and was given torsemide, spironolactone and metolazone in the outpatient setting. Patient came to the ED today via ambulance after having a bowel movement with diarrhea and afterwards sliding off toilet. Imaging showed findings of pulmonary edema, cor pulmonale and cardiogenic shock. Patient's K was 6.4 and he was given calcium chloride, Kayexalate, bicarb. K is now 5.8. Discussed with the family that patient is not a candidate for dialysis and to consult palliative care, family agreed. Review of Systems other PMFSH - History History Provided By: Family Member - Medical History Medical History: Medical History (Last Updated 04/25/18 @ 09:04 by Stacie Shankar MD) CKD (chronic kidney disease) stage 4, GFR 15-29 ml/min Diastolic heart failure EtOH dependence Gout Hypothyroidism Pulmonary HTN Tobacco abuse - Surgical History Surgical History: Surgical History (Last Updated 04/25/18 @ 09:03 by Stacie Shankar MD) Hx of appendectomy - Family History Family History: Family History (Last Updated 04/25/18 @ 09:04 by Stacie Shankar MD) Other Unknown family medical history - Tobacco History Smoking Status: Former smoker Packs Per Day: 1.5 Years Smoked: 40 Smoking End Date: 2000 - Alcohol History How Often Do You Have a Drink Containing Alcohol: Never - Substance Use History Substance History: Past History - Travel History Recent Travel in the [place] Within the Last 8 Weeks: No Recent Travel Out of the Country Within the Last 8 Weeks: No - Immunization History Tetanus Immunization: Unable to Assess Medications and Allergies Allergies Allergy/AdvReac Type Severity Reaction Status Date / Time ciprofloxacin [From Cipro] Allergy rash Verified 04/25/18 00:36 Home Medications Medication Instructions Recorded Confirmed Type Unable to Obtain Home Meds 04/25/18 04/25/18 History Active Medications: Active Medications Acetaminophen (Tylenol) 650 mg PO Q6H PRN PRN Reason: PAIN 1-10 AND/OR FEVER >101F Al Hydroxide/Mg Hydroxide (Milk Of Magnbailee Liq) 30 ml PO Q12H PRN PRN Reason: Mild Constipation Albuterol (Albuterol Neb (Prn)) 2.5 mg NEB Q2HR NEB PRN PRN Reason: SHORTNESS OF BREATH/WHEEZING Albuterol (Duoneb Neb (Jose)) 1 ampul NEB Q6HR NEB JOSE Last Admin: 04/25/18 08:46 Dose: 1 ampul Bisacodyl (Dulcolax Supp) 10 mg RECTAL DAILY PRN PRN Reason: SEVERE CONSITIPATION Chlorhexidine Gluconate (Chlorhexidine 2% Cloth) 3 pack TOPICAL DAILY@0400 JOSE Stop: 04/30/18 03:59 Last Admin: 04/25/18 07:40 Dose: Not Given Chlorhexidine Gluconate (Chlorhexidine 2% Cloth) 3 pack TOPICAL DAILY@0400 PRN PRN Reason: Extra cloth needed Stop: 04/30/18 03:59 Fentanyl Citrate (Fentanyl Inj) 50 mcg IV PUSH Q1H PRN PRN Reason: Pain scale 6-10, &/or sedation Fentanyl (Fentanyl 10 Mcg/Ml Premix Drip) 2,500 mcg in 250 mls @ 5 mls/hr IV.SIG TITRATE PRN; Protocol PRN Reason: Per Protocol Last Titration: 04/25/18 01:43 Dose: 200 mcg/hr, 20 mls/hr Dopamine HCl/Dextrose (Dopamine 800 Mg/500 Ml Premix) 800 mg in 500 mls @ 11.25 mls/hr IV.CONT TITRATE PRN; Protocol PRN Reason: Per Protocol Last Admin: 04/25/18 07:06 Dose: 3 mcg/kg/min, 11.25 mls/hr Aztreonam 1,000 mg/ Sodium (Chloride) 100 mls @ 200 mls/hr IV.SIG Q12H JOSE Last Admin: 04/25/18 08:23 Dose: 200 mls/hr Norepinephrine Bitartrate (Levophed-Dextrose 4 Mg/250 Ml Drip) 4 mg in 250 mls @ 7.5 mls/hr IV.SIG TITRATE PRN; Protocol PRN Reason: Per Protocol Last Admin: 04/25/18 11:07 Dose: 2 mcg/min, 7.5 mls/hr Dobutamine HCl/Dextrose (Dobutamine 250 Mg/250 Ml Premix) 250 mg in 250 mls @ 14.7 mls/hr IV.CONT .Q17H1M [facility] Last Admin: 04/25/18 05:42 Dose: 2.5 mcg/kg/min, 14.7 mls/hr Milrinone Lactate 20 mg/ (Sodium Chloride) 100 mls @ 1.83 mls/hr IV.CONT .Q24H [facility]; Protocol Last Admin: 04/25/18 11:06 Dose: 0.0625 mcg/kg/min, 1.83 mls/hr Vasopressin 40 unit/ Dextrose 100 mls @ 1.5 mls/hr IV.CONT CONT [facility]; Protocol Lactulose (Lactulose Liq) 30 ml PO DAILY PRN PRN Reason: SEVERE CONSITIPATION Midazolam HCl (Versed Inj) 2 mg IV.PUSH Q1H PRN PRN Reason: SEDATION Ondansetron HCl (Zofran Inj) 4 mg IV.PUSH Q6H PRN PRN Reason: NAUSEA OR VOMITING Pantoprazole Sodium (Protonix Inj) 40 mg IV.PUSH DAILY [facility] Last Admin: 04/25/18 09:00 Dose: 40 mg Senna/Docusate Sodium (Sharon-Colace) 1 tab PO BID [facility] Last Admin: 04/25/18 11:08 Dose: Not Given Sennosides (Senokot) 17.2 mg PO Q12H PRN PRN Reason: Moderate Constipation Sodium Chloride (Ns Flush) 2 ml IV.FLUSH PRN PRN PRN Reason: FLUSH AFTER USING IV ACCESS Sodium Chloride (Ns Flush) 2 ml IV.FLUSH BID [facility] Last Admin: 04/25/18 08:22 Dose: 2 ml Terbutaline Sulfate (Brethine Inj) 1 mg SQ ONCE PRN PRN Reason: Extravasation Terbutaline Sulfate (Brethine Inj) 1 mg SQ UNSCH PRN PRN Reason: For Extravasation Exam Vital signs: Vital Signs 04/25/18 00:32 04/25/18 00:33 04/25/18 00:36 Temperature Pulse Rate 116 H 112 H Respiratory Rate 16 16 Blood Pressure 110/74 121/80 Pulse Oximetry 100 100 04/25/18 00:45 04/25/18 01:14 04/25/18 01:19 Temperature 96.5 F L Pulse Rate 110 H 115 H Respiratory Rate 20 16 16 Blood Pressure 108/66 110/67 Pulse Oximetry 99 99 99 04/25/18 02:44 04/25/18 03:00 04/25/18 03:08 Temperature Pulse Rate 111 H 114 H Respiratory Rate 16 16 Blood Pressure 109/70 Pulse Oximetry 100 96 04/25/18 04:01 04/25/18 04:30 04/25/18 04:44 Temperature Pulse Rate 114 H Respiratory Rate 17 17 16 Blood Pressure 91/58 L Pulse Oximetry 98 97 04/25/18 05:00 04/25/18 06:04 04/25/18 06:45 Temperature 98.7 F Pulse Rate 118 H 120 H 122 H Respiratory Rate 16 23 19 Blood Pressure 88/62 L 78/52 L Pulse Oximetry 90 L 93 L 04/25/18 08:46 Temperature Pulse Rate 116 H Respiratory Rate 16 Blood Pressure Pulse Oximetry 97 Intake & Output 04/24/18 04/25/18 04/25/18 18:59 06:59 18:59 Intake Total 500 / 500 250 / 250 Output Total 20 / 20 Balance 480 / 480 250 / 250 Weight 98 kg Intake: IV 500 / 500 250 / 250 Levophed-Dextrose 4 mg/250 ml 250 / 250 Drip 4 mg In 250 ml @ 2 MCG/MIN 7.5 mls/hr IV.SIG TITRATE PRN Rx#:[id number] NS Inj 500 ML @ Wide Open IV. 500 / 500 SIG BOLUS ONE Rx#:[id number] Output: Urine Amount (Catheter) 20 / 20 Indwelling Urethral Catheter 20 / 20 Other: Weight On Admission 98 kg - Constitutional no acute distress, chronically ill appearing - Routine HEENT Exam Head: Present: normocephalic ENT: Present: mucous membranes moist - Routine Neck Exam Present: JVD, trachea midline. Absent: tracheal deviation, trauma - Routine Respiratory Exam Present: patient mechanically ventilated. Absent: respiratory distress, wheezes - Routine Cardiovascular Exam Present: irregular rhythm - Routine Abdominal Exam Present: soft, distended. Absent: tenderness - Routine Extremities Exam Present: edema - Routine Skin Exam Present: dry - Routine Neurological Exam Absent: alert, oriented X3 Results - Lab Results 04/25/18 10:05 04/25/18 10:05 Most recent lab results ABG pH 7.21 (7.380-7.420) L* 04/25/18 05:29 ABG pCO2 49 mmHg (38-42) H 04/25/18 05:29 ABG pO2 102 mmHG (61-120) 04/25/18 05:29 ABG HCO3 19 mmol/L (22-26) L 04/25/18 05:29 Calcium 7.0 mg/dL (8.5-10.1) L* 04/25/18 10:05 Phosphorus 8.0 mg/dL (2.5-4.9) H 04/25/18 10:05 Magnesium 1.9 mg/dL (1.5-2.5) 04/25/18 10:05 Assessment and Plan - Plan Acute on Chronic Kidney Disease Due to renal hypoperfusion. Patient too unstable for any fluid replacement, dialysis. Patient has glez in place. Discussed consulting palliative care with the family, they agreed. Hyperkalemic Due to renal failure and patient on Aldactone. Given calcium chloride, Kayexalate, bicarb. K is now 5.8. Acute respiratory failure Mechanically ventilated. On Duoneb and Albuterol. Cardiogenic shock Hypotensive. Art line in place for hemodynamic monitoring. UTI UA with positive WBCs and few bacteria. On aztreonam. <Amando Wbeber - Last Filed: 04/25/18 21:40> History of Present Illness Primary Care Provider: UNKNOWN [facility] - Medical History Medical History: Medical History (Last Updated 04/25/18 @ 09:04 by Stacie Shankar MD) CKD (chronic kidney disease) stage 4, GFR 15-29 ml/min Diastolic heart failure EtOH dependence Gout Hypothyroidism Pulmonary HTN Tobacco abuse - Surgical History Surgical History: Surgical History (Last Updated 04/25/18 @ 09:03 by Stacie Shankar MD) Hx of appendectomy - Family History Family History: Family History (Last Updated 04/25/18 @ 09:04 by Stacie Shankar MD) Other Unknown family medical history Medications and Allergies Active Medications: Active Medications Acetaminophen (Tylenol) 650 mg PO Q6H PRN PRN Reason: PAIN 1-10 AND/OR FEVER >101F Al Hydroxide/Mg Hydroxide (Milk Of Magnesia Liq) 30 ml PO Q12H PRN PRN Reason: Mild Constipation Albuterol (Albuterol Neb (Prn)) 2.5 mg NEB Q2HR NEB PRN PRN Reason: SHORTNESS OF BREATH/WHEEZING Albuterol (Duoneb Neb (Jose)) 1 ampul NEB Q6HR NEB JOSE Last Admin: 04/25/18 21:10 Dose: 1 ampul Bisacodyl (Dulcolax Supp) 10 mg RECTAL DAILY PRN PRN Reason: SEVERE CONSITIPATION Chlorhexidine Gluconate (Chlorhexidine 2% Cloth) 3 pack TOPICAL DAILY@0400 JOSE Stop: 04/30/18 03:59 Last Admin: 04/25/18 07:40 Dose: Not Given Chlorhexidine Gluconate (Chlorhexidine 2% Cloth) 3 pack TOPICAL DAILY@0400 PRN PRN Reason: Extra cloth needed Stop: 04/30/18 03:59 Fentanyl Citrate (Fentanyl Inj) 50 mcg IV PUSH Q1H PRN PRN Reason: Pain scale 6-10, &/or sedation Fentanyl (Fentanyl 10 Mcg/Ml Premix Drip) 2,500 mcg in 250 mls @ 5 mls/hr IV.SIG TITRATE PRN; Protocol PRN Reason: Per Protocol Last Admin: 04/25/18 14:31 Dose: 200 mcg/hr, 20 mls/hr Aztreonam 1,000 mg/ Sodium (Chloride) 100 mls @ 200 mls/hr IV.SIG Q12H [facility] Last Infusion: 04/25/18 18:17 Dose: Infused Norepinephrine Bitartrate (Levophed-Dextrose 4 Mg/250 Ml Drip) 4 mg in 250 mls @ 7.5 mls/hr IV.SIG TITRATE PRN; Protocol PRN Reason: Per Protocol Last Admin: 04/25/18 17:02 Dose: 70 mcg/min, 262.5 mls/hr Dobutamine HCl/Dextrose (Dobutamine 250 Mg/250 Ml Premix) 250 mg in 250 mls @ 14.7 mls/hr IV.CONT .Q17H1M [facility] Last Admin: 04/25/18 19:14 Dose: 2.5 mcg/kg/min, 14.7 mls/hr Milrinone Lactate 20 mg/ (Sodium Chloride) 100 mls @ 1.83 mls/hr IV.CONT .Q24H JOSE; Protocol Last Admin: 04/25/18 11:06 Dose: 0.0625 mcg/kg/min, 1.83 mls/hr Midazolam HCl (Versed Inj) 100 mg in 100 mls @ 2 mls/hr IV.CONT TITRATE PRN; Protocol PRN Reason: See protocol Last Admin: 04/25/18 13:42 Dose: 2 mg/hr, 2 mls/hr Vasopressin 40 unit/ Dextrose 100 mls @ 6 mls/hr IV.CONT CONT [facility]; Protocol Last Admin: 04/25/18 15:21 Dose: 0.04 units/min, 6 mls/hr Sodium Bicarbonate 150 meq/ (Dextrose) 1,000 mls @ 84 mls/hr IV.CONT .[id number] [facility] Last Admin: 04/25/18 15:13 Dose: 84 mls/hr Dopamine HCl/Dextrose (Dopamine 400 Mg/250 Ml Premix) 400 mg in 250 mls @ 11.25 mls/hr IV.CONT TITRATE PRN; Protocol PRN Reason: Per Protocol Last Admin: 04/25/18 18:18 Dose: 20 mcg/kg/min, 75 mls/hr Phenylephrine HCl 80 mg/ (Dextrose) 500 mls @ 15 mls/hr IV.CONT TITRATE PRN; Protocol PRN Reason: Per Protocol Last Admin: 04/25/18 18:24 Dose: 40 mcg/min, 15 mls/hr Lactulose (Lactulose Liq) 30 ml PO DAILY PRN PRN Reason: SEVERE CONSITIPATION Midazolam HCl (Versed Inj) 2 mg IV.PUSH Q1H PRN PRN Reason: SEDATION Last Admin: 04/25/18 11:49 Dose: 2 mg Ondansetron HCl (Zofran Inj) 4 mg IV.PUSH Q6H PRN PRN Reason: NAUSEA OR VOMITING Pantoprazole Sodium (Protonix Inj) 40 mg IV.PUSH DAILY [facility] Last Admin: 04/25/18 09:00 Dose: 40 mg Pharmacy Profile Note (Vancomycin Consult Pharmacy) 1 each OTHER UNSCH PRN PRN Reason: Pharmacy to dose Senna/Docusate Sodium (Sharon-Colace) 1 tab PO BID [facility] Last Admin: 04/25/18 11:08 Dose: Not Given Sennosides (Senokot) 17.2 mg PO Q12H PRN PRN Reason: Moderate Constipation Sodium Chloride (Ns Flush) 2 ml IV.FLUSH PRN PRN PRN Reason: FLUSH AFTER USING IV ACCESS Sodium Chloride (Ns Flush) 2 ml IV.FLUSH BID JOSE Last Admin: 04/25/18 08:22 Dose: 2 ml Terbutaline Sulfate (Brethine Inj) 1 mg SQ ONCE PRN PRN Reason: Extravasation Terbutaline Sulfate (Brethine Inj) 1 mg SQ UNSCH PRN PRN Reason: For Extravasation Terbutaline Sulfate (Brethine Inj) 1 mg SQ UNSCH PRN PRN Reason: For Extravasation Exam Vital signs: Vital Signs 04/25/18 00:32 04/25/18 00:33 04/25/18 00:36 Temperature Pulse Rate 116 H 112 H Respiratory Rate 16 16 Blood Pressure 110/74 121/80 Pulse Oximetry 100 100 04/25/18 00:45 04/25/18 01:14 04/25/18 01:19 Temperature 96.5 F L Pulse Rate 110 H 115 H Respiratory Rate 20 16 16 Blood Pressure 108/66 110/67 Pulse Oximetry 99 99 99 04/25/18 02:44 04/25/18 03:00 04/25/18 03:08 Temperature Pulse Rate 111 H 114 H Respiratory Rate 16 16 Blood Pressure 109/70 Pulse Oximetry 100 96 04/25/18 04:01 04/25/18 04:30 04/25/18 04:44 Temperature Pulse Rate 114 H Respiratory Rate 17 17 16 Blood Pressure 91/58 L Pulse Oximetry 98 97 04/25/18 05:00 04/25/18 06:04 04/25/18 06:45 Temperature 98.7 F Pulse Rate 118 H 120 H 122 H Respiratory Rate 16 23 19 Blood Pressure 88/62 L 78/52 L Pulse Oximetry 90 L 93 L 04/25/18 08:00 04/25/18 08:15 04/25/18 08:30 Temperature 97.7 F Pulse Rate 122 H 118 H 117 H Respiratory Rate 16 16 16 Blood Pressure 88/61 L 83/54 L 94/62 L Pulse Oximetry 100 93 L 95 04/25/18 08:45 04/25/18 08:46 04/25/18 09:00 Temperature Pulse Rate 115 H 116 H 121 H Respiratory Rate 17 16 16 Blood Pressure 94/61 L 92/63 L Pulse Oximetry 97 97 98 04/25/18 09:15 04/25/18 09:30 04/25/18 10:00 Temperature Pulse Rate 125 H 123 H 125 H Respiratory Rate 18 16 17 Blood Pressure 99/56 L 86/64 L Pulse Oximetry 95 93 L 94 L 04/25/18 11:00 04/25/18 12:00 04/25/18 13:00 Temperature Pulse Rate 126 H 133 H 136 H Respiratory Rate 16 17 16 Blood Pressure 101/68 77/50 L 71/51 L Pulse Oximetry 94 L 85 L 85 L 04/25/18 13:53 04/25/18 14:00 04/25/18 15:00 Temperature Pulse Rate 127 H 136 H 141 H Respiratory Rate 16 16 20 Blood Pressure 72/50 L 77/53 L 77/50 L Pulse Oximetry 91 L 87 L 82 L 04/25/18 16:00 04/25/18 16:04 04/25/18 17:00 Temperature Pulse Rate 139 H 136 H 139 H Respiratory Rate 20 20 20 Blood Pressure 81/56 L 88/66 L Pulse Oximetry 84 L 97 84 L 04/25/18 18:00 04/25/18 19:00 04/25/18 20:00 Temperature Pulse Rate 135 H 131 H 131 H Respiratory Rate 20 20 20 Blood Pressure 94/58 L 80/57 L Pulse Oximetry 86 L 86 L 04/25/18 20:05 04/25/18 21:11 Temperature Pulse Rate 130 H 130 H Respiratory Rate 20 20 Blood Pressure 89/58 L Pulse Oximetry 89 L 88 L Intake & Output 04/25/18 04/25/18 04/26/18 06:59 18:59 06:59 Intake Total 500 / 500 1510 / 1510 250 / 250 Output Total 20 / 20 350 / 350 Balance 480 / 480 1160 / 1160 250 / 250 Weight 98 kg Intake: IV 500 / 500 1510 / 1510 250 / 250 Sodium Bicarbonate 8.4% Inj 100 100 / 100 ML @ 0 mls/hr .ROUTE .STK-MED ONE Rx#:[id number] DOBUTamine 250 MG/250 ML Premix 250 / 250 250 mg In 250 ml @ 2.5 MCG/KG/ MIN 14.7 mls/hr IV.CONT .Q17H1M [facility] Rx#:[id number] Pitressin Inj 40 UNIT In D5W 100 / 100 Inj 98 ML @ 0.01 UNITS/MIN 1.5 mls/hr IV.CONT CONT [facility] Rx#: [id number] Azactam Inj 1,000 MG In NS Inj 200 / 200 100 ML @ 200 mls/hr IV.SIG Q12H [facility] Rx#:[id number] Calcium Chloride Inj 1 GM In 110 / 110 D5W Inj 100 ML @ 110 mls/hr IV. SIG ONCE ONE Rx#:[id number] Levophed-Dextrose 4 mg/250 ml 1000 / 1000 Drip 4 mg In 250 ml @ 2 MCG/MIN 7.5 mls/hr IV.SIG TITRATE PRN Rx#:[id number] NS Inj 500 ML @ Wide Open IV. 500 / 500 SIG BOLUS ONE Rx#:[id number] Output: Urine Amount (Catheter) 150 / 150 Indwelling Urethral Catheter 150 / 150 Gastric Drainage 200 / 200 Orogastric Tube 200 / 200 Other: Weight On Admission 98 kg Results - Lab Results 04/25/18 10:05 04/25/18 10:05 Most recent lab results ABG pH 7.17 (7.380-7.420) L* 04/25/18 14:10 ABG pCO2 56 mmHg (38-42) H* 04/25/18 14:10 ABG pO2 73 mmHG (61-120) 04/25/18 14:10 ABG HCO3 19 mmol/L (22-26) L 04/25/18 14:10 Calcium 7.0 mg/dL (8.5-10.1) L* 04/25/18 10:05 Phosphorus 8.0 mg/dL (2.5-4.9) H 04/25/18 10:05 Magnesium 1.9 mg/dL (1.5-2.5) 04/25/18 10:05 Assessment and Plan - Attending Attestation patient was seen and examined. Very poor prognosis. He was on dopamine and dobutamine when I saw him in the morning. Hyperkalemia is noted. Very poor prognosis. Discussed poor prognosis with family. Dialysis not possible due to hypotension, will not change the outcome.
[2018-04-25] MEDS ORDERED: Vasopressin Inj 40 UNIT in Dextrose 5% in Water Inj 98 ML IV.CONT SCH ×2 (12:00)
[2018-04-25 12:06] LABS: ABG Base Excess -6.8 mmol/L (-2-2); ABG PCO2 55 mmHg (38-42); ABG PO2 65 mmHG (61-120)
[2018-04-25 14:19] LABS: ABG Base Excess -7.8 mmol/L (-2-2); ABG PCO2 56 mmHg (38-42); ABG PO2 73 mmHG (61-120)
--- NOTE | 2018-04-25 14:55 | ECG ---
Date Performed: 04/25/2018 Time Performed: 12:02:29 PTAGE: 89 years EKG: ATRIAL FIBRILLATION WITH RAPID VENTRICULAR RESPONSE MARKED RIGHT AXIS DEVIATION RIGHT BUNDL E BRANCH BLOCK ABNORMAL ECG No significant change from prior electrocardiogram. PREVIOUS TRACING : 04/25/2018 07.13 DOCTOR: Sung Paris Interpretating Date/Time 04/25/2018 14:54:15
--- NOTE | 2018-04-25 14:57 | P.CONPAL ---
Consult Service: Palliative Care Requesting Physician: Stacie Shankar Reason for Consult: a. To assist with evaluation and management of symptoms including: pain, dyspnea, anxiety. b. To assist medical decision maker(s) with: better understanding of current medical conditions; weighing benefits/burdens of medical treatment options; making medical treatment decisions. Primary Care Provider: UNKNOWN History of Present Illness History of Present Illness: Mark Diggs has been identified as Donovan "Cady Herring is a 72 year old male with past medical history of oxygen dependent COPD, diastolic heart failure , severe pulmonary hypertension, gout, hypothyroidism, alcohol dependence and chronic kidney disease. Patient was seen by his job hand Dr. Barnes recently and diuretics were increased. Patient presented to [facility] emergency department on 04/25/18 via EMS after he suffered a fall at home with severe weakness and worsening shortness of breath over the past few days. reported increased peripheral edema also. Upon EMS arrival he was found to have oxygen saturation in the 80's and was hypotensive. Oxygen saturations did not improve despite nonrebreather. Patient was intubated and placed on mech vent. Initial emergency room evaluation : * WBC 13.2, hematocrit 48.4, platelet count 129, neutrophil 91.8% * Sodium 131, potassium 6.4, chloride 98, carbon dioxide 21, BUN 94, creatinine 4.01, GFR 13, * lactic acid 3.9 * Total bilirubin 1.0, ALT 18, AST 43, alkaline phosphatase 121 * Total creatine kinase 261 * troponin 0.66, 0.94 sequentially * BNP 2388 * Total protein 4.3, albumin 1.1 * lipase 15 * Toxicology screen negative * Serum alcohol less than 3 * EKG -atrial fibrillation with RVR, right bundle branch block, marked right axis deviation * echocardiogram EF 60-65%, right ventricular systolic function severely decreased, right ventricle moderately to severely dilated, pulmonary arterial pressure 66 * CT abdomen/pelvis-anasarca, small volume ascites, colonic diverticulosis, cholelithiasis * CT cervical spine-no gross fracture identified, exam degraded by motion artifact * CT chest-cardiomegaly, bibasilar infiltrates, underlying chronic interstitial change, tiny bilateral pleural effusions. * CT head-no acute intracranial abnormality. Patient was admitted to ICU on mechanical ventilation with respiratory failure, diastolic heart failure, elevated troponin, acute renal failure, hyperkalemia, cor pulmonale, cardiogenic shock. Nephrology was consulted patient was deemed not to be a candidate for dialysis given critical illness, severe hypotension requiring multiple pressor support. Potassium was treated with calcium chloride , Kayexalate, bicarb. Palliative care was consulted to assist with further clarification of goals of medical treatment. Met with and other family members at bedside. understands patient is not expected to survive this hospitalization she has elected NO CODE. Additional family members including patient's siblings and children are in route from [place], expected to arrive later this evening. is aware that patient may not survive until family arrives. Letter provided for for work given patient's critical illness. Palliative care number provided. We will continue to follow throughout hospital course, plan family meeting once additional family members arrive 04/26/18 to further clarify goals of medical treatment. [facility] - History History Provided By: Family Member - Medical History Medical History: Medical History (Last Reviewed 04/25/18 @ 18:44 by Arpita Cardozo MD) CKD (chronic kidney disease) stage 4, GFR 15-29 ml/min Diastolic heart failure EtOH dependence Gout Hypothyroidism Pulmonary HTN Tobacco abuse - Surgical History Surgical History: Surgical History (Last Reviewed 04/25/18 @ 18:44 by Arpita Cardozo MD) Hx of appendectomy - Family History Family History: Family History (Last Reviewed 04/25/18 @ 18:44 by Arpita Cardozo MD) Other Unknown family medical history - Social History I have reviewed the patient's Social History: Yes - Tobacco History Smoking Status: Former smoker Packs Per Day: 1.5 Years Smoked: 40 Smoking End Date: 2000 - Alcohol History How Often Do You Have a Drink Containing Alcohol: Never - Substance Use History Substance History: Past History - Travel History Recent Travel in the [place] Within the Last 8 Weeks: No Recent Travel Out of the Country Within the Last 8 Weeks: No - Immunization History Tetanus Immunization: Unable to Assess Medications and Allergies Active Medications: Active Medications Acetaminophen (Tylenol) 650 mg PO Q6H PRN PRN Reason: PAIN 1-10 AND/OR FEVER >101F Al Hydroxide/Mg Hydroxide (Milk Of Magnesia Liq) 30 ml PO Q12H PRN PRN Reason: Mild Constipation Albuterol (Albuterol Neb (Prn)) 2.5 mg NEB Q2HR NEB PRN PRN Reason: SHORTNESS OF BREATH/WHEEZING Albuterol (Duoneb Neb ([facility])) 1 ampul NEB Q6HR NEB [facility] Last Admin: 04/25/18 08:46 Dose: 1 ampul Bisacodyl (Dulcolax Supp) 10 mg RECTAL DAILY PRN PRN Reason: SEVERE CONSITIPATION Chlorhexidine Gluconate (Chlorhexidine 2% Cloth) 3 pack TOPICAL DAILY@0400 KAYLIN Stop: 04/30/18 03:59 Last Admin: 04/25/18 07:40 Dose: Not Given Chlorhexidine Gluconate (Chlorhexidine 2% Cloth) 3 pack TOPICAL DAILY@0400 PRN PRN Reason: Extra cloth needed Stop: 04/30/18 03:59 Fentanyl Citrate (Fentanyl Inj) 50 mcg IV PUSH Q1H PRN PRN Reason: Pain scale 6-10, &/or sedation Fentanyl (Fentanyl 10 Mcg/Ml Premix Drip) 2,500 mcg in 250 mls @ 5 mls/hr IV.SIG TITRATE PRN; Protocol PRN Reason: Per Protocol Last Titration: 04/25/18 01:43 Dose: 200 mcg/hr, 20 mls/hr Dopamine HCl/Dextrose (Dopamine 800 Mg/500 Ml Premix) 800 mg in 500 mls @ 11.25 mls/hr IV.CONT TITRATE PRN; Protocol PRN Reason: Per Protocol Last Admin: 04/25/18 07:06 Dose: 3 mcg/kg/min, 11.25 mls/hr Aztreonam 1,000 mg/ Sodium (Chloride) 100 mls @ 200 mls/hr IV.SIG Q12H [facility] Last Admin: 04/25/18 08:23 Dose: 200 mls/hr Norepinephrine Bitartrate (Levophed-Dextrose 4 Mg/250 Ml Drip) 4 mg in 250 mls @ 7.5 mls/hr IV.SIG TITRATE PRN; Protocol PRN Reason: Per Protocol Last Admin: 04/25/18 11:07 Dose: 2 mcg/min, 7.5 mls/hr Dobutamine HCl/Dextrose (Dobutamine 250 Mg/250 Ml Premix) 250 mg in 250 mls @ 14.7 mls/hr IV.CONT .Q17H1M [facility] Last Admin: 04/25/18 05:42 Dose: 2.5 mcg/kg/min, 14.7 mls/hr Milrinone Lactate 20 mg/ (Sodium Chloride) 100 mls @ 1.83 mls/hr IV.CONT .Q24H [facility]; Protocol Last Admin: 04/25/18 11:06 Dose: 0.0625 mcg/kg/min, 1.83 mls/hr Vasopressin 40 unit/ Dextrose 100 mls @ 1.5 mls/hr IV.CONT CONT KAYLIN; Protocol Last Admin: 04/25/18 13:42 Dose: 0.01 units/min, 1.5 mls/hr Midazolam HCl (Versed Inj) 100 mg in 100 mls @ 2 mls/hr IV.CONT TITRATE PRN; Protocol PRN Reason: See protocol Last Admin: 04/25/18 13:42 Dose: 2 mg/hr, 2 mls/hr Lactulose (Lactulose Liq) 30 ml PO DAILY PRN PRN Reason: SEVERE CONSITIPATION Midazolam HCl (Versed Inj) 2 mg IV.PUSH Q1H PRN PRN Reason: SEDATION Last Admin: 04/25/18 11:49 Dose: 2 mg Ondansetron HCl (Zofran Inj) 4 mg IV.PUSH Q6H PRN PRN Reason: NAUSEA OR VOMITING Pantoprazole Sodium (Protonix Inj) 40 mg IV.PUSH DAILY [facility] Last Admin: 04/25/18 09:00 Dose: 40 mg Senna/Docusate Sodium (Sharon-Colace) 1 tab PO BID [facility] Last Admin: 04/25/18 11:08 Dose: Not Given Sennosides (Senokot) 17.2 mg PO Q12H PRN PRN Reason: Moderate Constipation Sodium Chloride (Ns Flush) 2 ml IV.FLUSH PRN PRN PRN Reason: FLUSH AFTER USING IV ACCESS Sodium Chloride (Ns Flush) 2 ml IV.FLUSH BID [facility] Last Admin: 04/25/18 08:22 Dose: 2 ml Terbutaline Sulfate (Brethine Inj) 1 mg SQ ONCE PRN PRN Reason: Extravasation Terbutaline Sulfate (Brethine Inj) 1 mg SQ UNSCH PRN PRN Reason: For Extravasation Allergies Allergy/AdvReac Type Severity Reaction Status Date / Time ciprofloxacin [From Cipro] Allergy rash Verified 04/25/18 00:36 Home Medications Medication Instructions Recorded Confirmed Type Unable to Obtain Home Meds 04/25/18 04/25/18 History Advance Directives Living Will: No Healthcare Surrogate: No Health Care Surrogate Name and Number: Sarah Herring, /HCP: [phone] Power of Peripheral Edp Equipment Operator: No Physical Exam Vital Signs: Vital Signs - 24 hr 04/25/18 00:32 04/25/18 00:33 04/25/18 00:36 Temperature Pulse Rate 116 H 112 H Respiratory Rate 16 16 Blood Pressure 110/74 121/80 Pulse Oximetry 100 100 04/25/18 00:45 04/25/18 01:14 04/25/18 01:19 Temperature 96.5 F L Pulse Rate 110 H 115 H Respiratory Rate 20 16 16 Blood Pressure 108/66 110/67 Pulse Oximetry 99 99 99 04/25/18 02:44 04/25/18 03:00 04/25/18 03:08 Temperature Pulse Rate 111 H 114 H Respiratory Rate 16 16 Blood Pressure 109/70 Pulse Oximetry 100 96 04/25/18 04:01 04/25/18 04:30 04/25/18 04:44 Temperature Pulse Rate 114 H Respiratory Rate 17 17 16 Blood Pressure 91/58 L Pulse Oximetry 98 97 04/25/18 05:00 04/25/18 06:04 04/25/18 06:45 Temperature 98.7 F Pulse Rate 118 H 120 H 122 H Respiratory Rate 16 23 19 Blood Pressure 88/62 L 78/52 L Pulse Oximetry 90 L 93 L 04/25/18 08:46 Temperature Pulse Rate 116 H Respiratory Rate 16 Blood Pressure Pulse Oximetry 97 I&O: Intake & Output 04/23/18 04/24/18 04/25/18 04/26/18 06:59 06:59 06:59 06:59 Intake Total 500 / 500 360 / 360 Output Total 20 / 20 Balance 480 / 480 360 / 360 Weight 98 kg Physical Exam: CONSTITUTIONAL/GENERAL: This is a critically, chronically ill appearing patient , restless, anxious on mech vent. TUBES/LINES/DRAINS:ETT, OG to suction, right IJ central line, Lang. SKIN: Bruises bilateral UEs. Feet cold to touch, right LE peripheral vascular changes, purple. Skin tears bilateral UEs. HEAD: Atraumatic. Normocephalic. EYES: Pupils equal and round and reactive. ENT: Unable to assess hearing. Nose without bleeding or purulent drainage. Throat difficult to visualize due to tubes. NECK: Trachea midline. CARDIOVASCULAR: tachycardic, irregular. Rate 130s. RESPIRATORY/CHEST: diffuse rales bilaterally on vent. GASTROINTESTINAL: Abdomen soft. Anasarca abdomen, chest and upper extremities. GENITOURINARY: Without palpable bladder distension. Lang catheter in place. MUSCULOSKELETAL: Extremities with edema. Bilateral LE mottling. LYMPHATICS: Not examined. NEUROLOGICAL: Awakens, pulling chest upward in bed, appears anxious and confused. Moves all extremities. PSYCHIATRIC: Anxious. Diagnostic Tests Laboratory: Laboratory Results - last 72 hr 04/25/18 04/25/18 04/25/18 00:32 00:48 00:48 WBC 13.5 H RBC 5.05 Hgb 16.2 Hct 48.4 MCV 96.0 MCH 32.2 MCHC 33.5 RDW 17.1 Plt Count 129 L MPV 10.4 Neut % (Auto) 91.8 H Lymph % (Auto) 1.9 L [place] % (Auto) 2.1 Eos % (Auto) 4.1 H Baso % (Auto) 0.1 Neut # (Auto) 12.4 H Lymph # (Auto) 0.3 L [place] # (Auto) 0.3 Eos # (Auto) 0.6 H Baso # (Auto) 0.0 WBC Differential . Differential Comment Auto diff final PT INR APTT Puncture Site Patient Temperature O2 Saturation ABG pH ABG pCO2 ABG pO2 ABG HCO3 ABG O2 Content ABG Base Excess ABG Methemoglobin Lucien Test Hemoglobin Carboxyhemoglobin O2 Delivery Device Vent Setting Inspired O2 Critical Value Sodium 131 L Potassium 6.4 H Chloride 98 Carbon Dioxide 21.0 Anion Gap 12 BUN 94 H Creatinine 4.01 H Estimated GFR 13 L POC Glucose 82 Random Glucose 80 Lactic Acid Calcium 7.4 L* Calcium Adj for Albumin 9.0 Phosphorus Magnesium 1.8 Total Bilirubin 1.0 AST 43 H ALT 18 Alkaline Phosphatase 121 H Total Creatine Kinase 261 CK-MB (CK-2) 10.9 H Troponin I 0.66 H* B-Natriuretic Peptide Total Protein 4.3 L Albumin 1.1 L Lipase 15 L Urine Color Urine Clarity Urine pH Ur Specific [place] Urine Protein Urine Glucose (UA) Urine Ketones Urine Occult Blood Urine Nitrate Urine Bilirubin Urine Urobilinogen Ur Leukocyte Esterase Urine RBC Urine WBC Urine WBC Clumps Urine Bacteria Hyaline Casts Urine Mucus Micro UA Comment Ur Microscopic Review Urine Culture Comments Nasal Screen MRSA (PCR) Urine Opiates Screen Ur Barbiturates Screen Ur Amphetamines Screen U Benzodiazepines Scrn Urine Cocaine Screen U Cannabinoids Screen Serum Alcohol Less than 3 04/25/18 04/25/18 04/25/18 00:48 00:48 00:48 WBC RBC Hgb Hct MCV MCH MCHC RDW Plt Count MPV Neut % (Auto) Lymph % (Auto) [place] % (Auto) Eos % (Auto) Baso % (Auto) Neut # (Auto) Lymph # (Auto) [place] # (Auto) Eos # (Auto) Baso # (Auto) WBC Differential Differential Comment PT 14.9 H INR 1.5 APTT 42.5 H Puncture Site Patient Temperature O2 Saturation ABG pH ABG pCO2 ABG pO2 ABG HCO3 ABG O2 Content ABG Base Excess ABG Methemoglobin Lucien Test Hemoglobin Carboxyhemoglobin O2 Delivery Device Vent Setting Inspired O2 Critical Value Sodium Potassium Chloride Carbon Dioxide Anion Gap BUN Creatinine Estimated GFR POC Glucose Random Glucose Lactic Acid 3.9 H Calcium Calcium Adj for Albumin Phosphorus Magnesium Total Bilirubin AST ALT Alkaline Phosphatase Total Creatine Kinase CK-MB (CK-2) Troponin I B-Natriuretic Peptide 2388 H Total Protein Albumin Lipase Urine Color Urine Clarity Urine pH Ur Specific [place] Urine Protein Urine Glucose (UA) Urine Ketones Urine Occult Blood Urine Nitrate Urine Bilirubin Urine Urobilinogen Ur Leukocyte Esterase Urine RBC Urine WBC Urine WBC Clumps Urine Bacteria Hyaline Casts Urine Mucus Micro UA Comment Ur Microscopic Review Urine Culture Comments Nasal Screen MRSA (PCR) Urine Opiates Screen Ur Barbiturates Screen Ur Amphetamines Screen U Benzodiazepines Scrn Urine Cocaine Screen U Cannabinoids Screen Serum Alcohol 04/25/18 04/25/18 04/25/18 00:48 00:48 04:15 WBC RBC Hgb Hct MCV MCH MCHC RDW Plt Count MPV Neut % (Auto) Lymph % (Auto) [place] % (Auto) Eos % (Auto) Baso % (Auto) Neut # (Auto) Lymph # (Auto) [place] # (Auto) Eos # (Auto) Baso # (Auto) WBC Differential Differential Comment PT INR APTT Puncture Site Patient Temperature O2 Saturation ABG pH ABG pCO2 ABG pO2 ABG HCO3 ABG O2 Content ABG Base Excess ABG Methemoglobin Lucien Test Hemoglobin Carboxyhemoglobin O2 Delivery Device Vent Setting Inspired O2 Critical Value Sodium Potassium Chloride Carbon Dioxide Anion Gap BUN Creatinine Estimated GFR POC Glucose Random Glucose Lactic Acid Calcium Calcium Adj for Albumin Phosphorus Magnesium Total Bilirubin AST ALT Alkaline Phosphatase Total Creatine Kinase CK-MB (CK-2) Troponin I B-Natriuretic Peptide Total Protein Albumin Lipase Urine Color [place]a Urine Clarity Cloudy H Urine pH 5.0 Ur Specific [place] 1.020 Urine Protein 30 H Urine Glucose (UA) Negative Urine Ketones Negative Urine Occult Blood Negative Urine Nitrate Negative Urine Bilirubin Negative Urine Urobilinogen 2.0 H Ur Leukocyte Esterase Negative Urine RBC 2 Urine WBC 8 H Urine WBC Clumps Rare H Urine Bacteria Few H Hyaline Casts 91 Urine Mucus Few H Micro UA Comment Cath-culture ind Ur Microscopic Review Not Reportable Urine Culture Comments Cath-cult indicated Nasal Screen MRSA (PCR) Not detected Urine Opiates Screen Neg Ur Barbiturates Screen Neg Ur Amphetamines Screen Neg U Benzodiazepines Scrn Neg Urine Cocaine Screen Neg U Cannabinoids Screen Neg Serum Alcohol 04/25/18 04/25/18 04/25/18 05:29 09:47 10:05 WBC 12.6 H RBC 4.97 Hgb 15.9 Hct 48.5 MCV 97.6 MCH 32.0 MCHC 32.8 RDW 17.7 H Plt Count 115 L MPV 9.4 Neut % (Auto) 89.7 H Lymph % (Auto) 1.2 L [place] % (Auto) 1.3 Eos % (Auto) 7.7 H Baso % (Auto) 0.1 Neut # (Auto) 11.3 H Lymph # (Auto) 0.2 L [place] # (Auto) 0.2 Eos # (Auto) 1.0 H Baso # (Auto) 0.0 WBC Differential . Differential Comment Auto diff final PT INR APTT Puncture Site Right radial Patient Temperature 98.6 O2 Saturation 93 ABG pH 7.21 L* ABG pCO2 49 H ABG pO2 102 ABG HCO3 19 L ABG O2 Content 22.6 H ABG Base Excess -8.0 L ABG Methemoglobin 1.9 Lucien Test Present Hemoglobin 17.3 H Carboxyhemoglobin 0.4 O2 Delivery Device Ventilator Vent Setting Prvc16/500/1.0/+5 Inspired O2 100 Critical Value Yes Sodium Potassium Chloride Carbon Dioxide Anion Gap BUN Creatinine Estimated GFR POC Glucose Random Glucose Lactic Acid 1.7 Calcium Calcium Adj for Albumin Phosphorus Magnesium Total Bilirubin AST ALT Alkaline Phosphatase Total Creatine Kinase CK-MB (CK-2) Troponin I B-Natriuretic Peptide Total Protein Albumin Lipase Urine Color Urine Clarity Urine pH Ur Specific [place] Urine Protein Urine Glucose (UA) Urine Ketones Urine Occult Blood Urine Nitrate Urine Bilirubin Urine Urobilinogen Ur Leukocyte Esterase Urine RBC Urine WBC Urine WBC Clumps Urine Bacteria Hyaline Casts Urine Mucus Micro UA Comment Ur Microscopic Review Urine Culture Comments Nasal Screen MRSA (PCR) Urine Opiates Screen Ur Barbiturates Screen Ur Amphetamines Screen U Benzodiazepines Scrn Urine Cocaine Screen U Cannabinoids Screen Serum Alcohol 04/25/18 04/25/18 04/25/18 10:05 10:05 11:53 WBC RBC Hgb Hct MCV MCH MCHC RDW Plt Count MPV Neut % (Auto) Lymph % (Auto) [place] % (Auto) Eos % (Auto) Baso % (Auto) Neut # (Auto) Lymph # (Auto) [place] # (Auto) Eos # (Auto) Baso # (Auto) WBC Differential Differential Comment PT INR APTT Puncture Site Art line Patient Temperature 98.6 O2 Saturation 86 L* ABG pH 7.19 L* ABG pCO2 55 H* ABG pO2 65 ABG HCO3 20 L ABG O2 Content 19.5 ABG Base Excess -6.8 L ABG Methemoglobin 2.0 Lucien Test Hemoglobin 16.2 H Carboxyhemoglobin 0.4 O2 Delivery Device Ventilator Vent Setting 16/600/1.0/peep5 Inspired O2 100 Critical Value Yes Sodium 131 L Potassium 5.8 H Chloride 97 L Carbon Dioxide 21.5 Anion Gap 13 BUN 94 H Creatinine 3.79 H Estimated GFR 14 L POC Glucose Random Glucose 130 H Lactic Acid Calcium 7.0 L* Calcium Adj for Albumin 9.4 Phosphorus 8.0 H Magnesium 1.9 Total Bilirubin 1.3 H AST 39 H ALT 16 Alkaline Phosphatase 124 H Total Creatine Kinase CK-MB (CK-2) Troponin I 0.94 H* B-Natriuretic Peptide 4185 H Total Protein 4.2 L Albumin 1.0 L Lipase Urine Color Urine Clarity Urine pH Ur Specific [place] Urine Protein Urine Glucose (UA) Urine Ketones Urine Occult Blood Urine Nitrate Urine Bilirubin Urine Urobilinogen Ur Leukocyte Esterase Urine RBC Urine WBC Urine WBC Clumps Urine Bacteria Hyaline Casts Urine Mucus Micro UA Comment Ur Microscopic Review Urine Culture Comments Nasal Screen MRSA (PCR) Urine Opiates Screen Ur Barbiturates Screen Ur Amphetamines Screen U Benzodiazepines Scrn Urine Cocaine Screen U Cannabinoids Screen Serum Alcohol 04/25/18 13:10 WBC RBC Hgb Hct MCV MCH MCHC RDW Plt Count MPV Neut % (Auto) Lymph % (Auto) [place] % (Auto) Eos % (Auto) Baso % (Auto) Neut # (Auto) Lymph # (Auto) [place] # (Auto) Eos # (Auto) Baso # (Auto) WBC Differential Differential Comment PT INR APTT Puncture Site Patient Temperature O2 Saturation ABG pH ABG pCO2 ABG pO2 ABG HCO3 ABG O2 Content ABG Base Excess ABG Methemoglobin Lucien Test Hemoglobin Carboxyhemoglobin O2 Delivery Device Vent Setting Inspired O2 Critical Value Sodium Potassium Chloride Carbon Dioxide Anion Gap BUN Creatinine Estimated GFR POC Glucose Random Glucose Lactic Acid 1.9 Calcium Calcium Adj for Albumin Phosphorus Magnesium Total Bilirubin AST ALT Alkaline Phosphatase Total Creatine Kinase CK-MB (CK-2) Troponin I B-Natriuretic Peptide Total Protein Albumin Lipase Urine Color Urine Clarity Urine pH Ur Specific [place] Urine Protein Urine Glucose (UA) Urine Ketones Urine Occult Blood Urine Nitrate Urine Bilirubin Urine Urobilinogen Ur Leukocyte Esterase Urine RBC Urine WBC Urine WBC Clumps Urine Bacteria Hyaline Casts Urine Mucus Micro UA Comment Ur Microscopic Review Urine Culture Comments Nasal Screen MRSA (PCR) Urine Opiates Screen Ur Barbiturates Screen Ur Amphetamines Screen U Benzodiazepines Scrn Urine Cocaine Screen U Cannabinoids Screen Serum Alcohol Result Diagrams: 04/26/18 04:30 04/26/18 04:30 Microbiology: Microbiology 04/25/18 00:48 Anaerobic Blood Culture - Preliminary Blood - Peripheral gram positive cocci 04/25/18 00:45 Anaerobic Blood Culture - Preliminary Blood - Peripheral gram positive cocci Imaging: Abdomen/Pelvis CT 04/25/18 03:26 CONCLUSION: 1. Anasarca. 2. Small volume ascites. 3. Colonic diverticulosis. 4. Cholelithiasis. Cervical Spine CT 04/25/18 03:26 CONCLUSION: 1. Examination is degraded by motion artifact. 2. No gross fracture. 3. I cannot exclude subluxation at the C1-C2 articulation. Chest CT 04/25/18 03:26 CONCLUSION: 1. Cardiomegaly. 2. Bibasilar infiltrates. 3. Underlying chronic interstitial change. 4. Tiny bilateral pleural effusions. Head CT 04/25/18 03:26 CONCLUSION: 1. No acute intracranial abnormality. . Chest X-Ray 04/25/18 07:03 CONCLUSION: 1. Right IJ central line distal tip is in the SVC. There is no pneumothorax. 2. Stable interstitial opacities and airspace consolidation in the lower lung zones bilaterally. 3. During comparison with the chest CT performed today, there is a possible low -density mass in the right atrium could represent a solid mass or thrombus. However, the prior examination was performed without contrast and therefore this finding could be further evaluated with contrast-enhanced imaging or consider cardiac echo. Procedures: * 04/25/18 - intubated, right IJ central line placed. Patient/Family Conference Issues Discussed: * Palliative care role, purpose, approach * Additional medical, psychosocial, and spiritual history * Patients general health, functional status, and cognitive changes in the months leading up to the current hospitalization * Patient/family understanding of the current medical problems * Patient/family understanding of prognosis * Patients goals of care as best understood from advance directives and/or conversations and/or values * Current medical treatment options and benefits/burdens of those options * Likely scenarios comparing ongoing aggressive care with a transition to comfort measures only * Questions answered to the best of my ability * Palliative care contact information provided Assessment and Plan - Disease Oriented Problem List (1) Cardiogenic shock (2) Acute on chronic renal failure (3) Hyperkalemia (4) Acute respiratory failure (5) Cor pulmonale (6) Atrial fibrillation with RVR (7) Pulmonary hypertension (8) Diastolic heart failure (9) Severe protein-calorie malnutrition (10) UTI (urinary tract infection) - Symptom Scale (1) Pain 0-10 Scale: Unable to quantify (2) Dyspnea 0-10 Scale: Unable to quantify (3) Anxiety 0-10 Scale: Unable to quantify Pertinent Non-Medical Issues: Psychosocial: . Supported by children, siblings and many other family members. Spiritual: Supported by their local oxygen tank filler. Legal:Patient is not capacitated to make his own healthcare decisions, will not regain capacity. According to [place] statutes, healthcare proxy decision making falls to the patient's spouse. Ethical issues impacting care: No known concerns at this time. Important Contacts: * Sarah Herring, /HCP: [phone] Prognosis: Patient with oxygen dependent COPD, pulmonary hypertension, diastolic heart failure admitted with cor pulmonale, respiratory and acute on chronic renal failure, hyperkalemia remains critically ill in ICU, not expected to survive this hospitalization. Code Status: No Code DNR Plan: * Patient is not capacitated to make his own healthcare decisions, will not regain capacity. According to [place] statutes, healthcare proxy decision making falls to the patient's spouse. * NO CODE. * 04/25/18-Met with and other family members at bedside. understands patient is not expected to survive this hospitalization she has elected NO CODE. Additional family members including patient's siblings and children are in route from [place], expected to arrive later this evening. is aware that patient may not survive until family arrives. Letter provided for for work given patient's critical illness. Palliative care number provided. We will continue to follow throughout hospital course, plan family meeting once additional family members arrive 04/26/18 to further clarify goals of medical treatment. * Discussed with nursing staff. * Family oxygen tank filler at bedside. * Letter provided for patient's and daughter to indicate patient's critical illness. * [facility] information provided to family as patient and his provide a great deal of support to their grandchildren ages 5 and 6. * SYMPTOMS: Pain: Secondary to intubation, elevated troponin, etc. patient sedated on fentanyl drip, increase during my visit to 250 mcg given what appeared to be anxiety and pain. Dyspnea: On mechanical vent, on fentanyl drip , Versed drip added. Anxiety: Versed drip added for what appeared to be severe anxiety when awake. Appears more comfortable with addition of Versed drip. Requiring increasing pressor support given need for sedation. * Palliative care number provided. * Positive care will continue to follow throughout hospital course to assist with symptom management further clarification of goals of medical treatment. Appreciation Thank you for the opportunity to participate in the care of Mark Diggs. Attestation Attestation: To help prompt me to consider important information that might be impacting today's encounter and assessment, information from prior notes written by myself or my colleagues may have been "brought forward" into today's note. My signature on this note, however, is an attestation that I personally performed the exam, history, and/or decision-making noted today, and, unless otherwise indicated, the interactions with patient, family, and staff as well as the review of records all occurred today. I also attest that the listed assessment and stated plan reflect my best clinical judgment today based on the combination of historical information, prior notes, and today's exam/ interactions. When time spent is documented, it refers only to time spent today by the signer, or if indicated, combined time spent today by collaborating physician/nurse practitioner.
[2018-04-25] MEDS: Sodium Bicarbonate 8.4% Inj 150 MEQ in Dextrose 5% in Water Inj 850 ML IV.CONT SCH ×2 (15:13)
[2018-04-25] MEDS: Vasopressin Inj 40 UNIT in Dextrose 5% in Water Inj 98 ML IV.CONT SCH ×2 (15:21)
[2018-04-25] MEDS ORDERED: Vancomycin Inj 1,000 MG in Sodium Chlor 0.9% Inj 250 ML IV.SIG SCH (16:00)
[2018-04-25] MEDS ORDERED: Vancomycin Consult Pharmacy OTHER PRN (16:09)
[2018-04-25] MEDS ORDERED: Vancomycin Inj 1,250 MG in Sodium Chlor 0.9% Inj 250 ML IV.SIG ONE (17:00)
[2018-04-25] MEDS: DOPamine 400 MG/250 ML Premix 400 MG/250 ML BAG IV.CONT PRN ×2 (18:18→23:46)
[2018-04-25] MEDS: Phenylephrine Inj 80 MG in Dextrose 5% in Water Inj 492 ML IV.CONT PRN ×4 (18:24→23:46)
--- NOTE | 2018-04-25 20:18 | ECG ---
Date Performed: 04/25/2018 Time Performed: 00:37:29 PTAGE: 89 years EKG: ATRIAL FIBRILLATION WITH RAPID VENTRICULAR RESPONSE MARKED RIGHT AXIS DEVIATION RIGHT BUNDL E BRANCH BLOCK ABNORMAL ECG NO PREVIOUS TRACING DOCTOR: Valorie Luciano Interpretating Date/Time 04/25/2018 20:07:56
--- NOTE | 2018-04-25 20:19 | ECG ---
Date Performed: 04/25/2018 Time Performed: 07:13:10 PTAGE: 89 years EKG: ATRIAL FIBRILLATION WITH RAPID VENTRICULAR RESPONSE MARKED RIGHT AXIS DEVIATION RIGHT BUNDL E BRANCH BLOCK ABNORMAL ECG INTERPRETATION BASED ON A DEFAULT AGE OF 41 YEARS PREVIOUS TRACING 04/25/2018 @ 07.13 Since the previous tracing, no significant change no nam DOCTOR: Valorie Luciano Interpretating Date/Time 04/25/2018 20:08:45
[2018-04-25 20:41] VITALS: BP 89/58
[2018-04-26] MEDS: DOPamine 400 MG/250 ML Premix 400 MG/250 ML BAG IV.CONT PRN ×4 (03:00→13:39)
[2018-04-26] MEDS: Sodium Bicarbonate 8.4% Inj 150 MEQ in Dextrose 5% in Water Inj 850 ML IV.CONT SCH ×2 (04:08)
--- NOTE | 2018-04-26 04:08 | XR ---
EXAM DATE: 04/26/2018 3:51 AM EST AGE/SEX: 72 years / Male INDICATIONS: Short of breath. CLINICAL DATA: This is the patient's subsequent encounter. Patient reports that signs and symptoms h ave been present for 1 week and indicates a pain score of 0/10. MEDICAL/SURGICAL HISTORY: Non-responsive. Non-responsive. COMPARISON: [facility] [place], CHEST 1V SINGLE AP, 04/25/2018. . FINDINGS: A single AP view of the chest demonstrates bibasilar consolidations more pronounced on the left. Scat tered areas of parenchymal consolidation throughout the remaining areas of both lungs. Small left eff usion questioned. Heart is mildly enlarged. Tip of endotracheal tube 3 cm from the ted. Nasogastri c tube and right sided central line. CONCLUSION: Unchanged exam. Electronically signed by: Tico Garcia MD 04/26/2018 4:06 AM EST
[2018-04-26] MEDS: Vasopressin Inj 40 UNIT in Dextrose 5% in Water Inj 98 ML IV.CONT SCH ×2 (04:47)
[2018-04-26 04:54] LABS: Baso % (Auto) 0.1 % (0.0-2.0); Eos # (Auto) 0.5 th/mm3 (0.0-0.4); Eos % (Auto) 4.6 % (0.0-4.0); Hematocrit 47.9 % (39.0-51.0); Hemoglobin 15.4 gm/dL (13.0-17.0); Lymph # (Auto) 0.1 th/mm3 (1.0-4.8); Lymph % (Auto) 0.9 % (9.0-44.0); Mean Corpuscular HGB Conc 32.2 % (32.0-36.0); Mean Corpuscular Hemoglobin 31.8 pg (27.0-34.0); Mean Corpuscular Volume 98.7 fL (80.0-100.0); Mean Platelet Volume 10.7 fL (7.0-11.0); Mono # (Auto) 0.1 th/mm3 (0.0-0.9); Mono % (Auto) 1.1 % (0.0-8.0); Neut % (Auto) 93.3 % (16.0-70.0); Platelet Count 43 th/mm3 (150-450); Red Blood Count 4.86 mil/mm3 (4.50-5.90); Red Cell Distribution Width 17.9 % (11.6-17.2); White Blood Count 11.8 th/mm3 (4.0-11.0)
[2018-04-26 05:03] LABS: Activated Partial Thrombo Time 52.7 sec (23.4-31.7); INR 1.6 Ratio; Prothrombin Time 16.1 sec (9.8-11.6)
[2018-04-26 05:29] LABS: Albumin 0.8 g/dL (3.4-5.0); Calcium 6.2 mg/dL (8.5-10.1); Magnesium 1.7 mg/dL (1.5-2.5); Phosphorus 7.6 mg/dL (2.5-4.9); Potassium 5.2 meq/L (3.5-5.1); Total Protein 3.7 g/dL (6.4-8.2); Vancomycin,Random 10.8 Comment
[2018-04-26] MEDS: Chlorhexidine Gluconate 2% 1 Pack (2 Cloths) TOPICAL SCH (05:42)
[2018-04-26 06:42] LABS: Platelet Morphology Normal (Normal); Tallied Nucleated RBC 1 (0-0)
[2018-04-26 06:43] LABS: Burr Cells 2+; Toxic Vacuolation Present
[2018-04-26] MEDS ORDERED: Sodium Bicarbonate 8.4% Inj 150 MEQ in Sodium Chloride 0.45 % Inj 850 ML IV.CONT SCH (06:45)
[2018-04-26 07:24] LABS: ABG Base Excess -5.9 mmol/L (-2-2); ABG PCO2 58 mmHg (38-42); ABG PO2 61 mmHG (61-120)
--- NOTE | 2018-04-26 07:54 | P.PNCC ---
Subjective Subjective Remarks/Hospital Course: 04/26: Continued deterioration ,hemodynamics worsening. Echo revealed PASP 66 with severe RV systolic dysfunction. Milrinone was added to medication regimen , currently at its maximum dose, attempts made to wean dobutamine thus far unsuccessful. The patient continues on levophed, dopamine, dobutamine, vasopressin as well as phenylephrine. MAP has remained low 50's. the family met with palliative care yesterday in the a.m. , decision was made for DNR status, not to pursue hemodialysis and palliative care was consulted. Decision by patient's was to continue current care await family out of town arrival , for possible initiation of comfort care measures. This a.m. during evaluation inquiry from the patient regarding comfort care measures. Explanation provided, to be seen by palliative this a.m.. Labs reveal hyponatremia base of bicarbonate drip changed from D5W to half normal saline. Significant bandemia noted today, gram positive cocci was noted in culture vancomycin was added to antibiotic medication regimen, last evening. Objective Vital Signs / I&O: Vital Signs 04/25/18 08:00 04/25/18 08:15 04/25/18 08:30 Temperature 97.7 F Pulse Rate 122 H 118 H 117 H Respiratory Rate 16 16 16 Blood Pressure 88/61 L 83/54 L 94/62 L Pulse Oximetry 100 93 L 95 04/25/18 08:45 04/25/18 08:46 04/25/18 09:00 Temperature Pulse Rate 115 H 116 H 121 H Respiratory Rate 17 16 16 Blood Pressure 94/61 L 92/63 L Pulse Oximetry 97 97 98 04/25/18 09:15 04/25/18 09:30 04/25/18 10:00 Temperature Pulse Rate 125 H 123 H 125 H Respiratory Rate 18 16 17 Blood Pressure 99/56 L 86/64 L Pulse Oximetry 95 93 L 94 L 04/25/18 11:00 04/25/18 12:00 04/25/18 13:00 Temperature Pulse Rate 126 H 133 H 136 H Respiratory Rate 16 17 16 Blood Pressure 101/68 77/50 L 71/51 L Pulse Oximetry 94 L 85 L 85 L 04/25/18 13:53 04/25/18 14:00 04/25/18 15:00 Temperature Pulse Rate 127 H 136 H 141 H Respiratory Rate 16 16 20 Blood Pressure 72/50 L 77/53 L 77/50 L Pulse Oximetry 91 L 87 L 82 L 04/25/18 16:00 04/25/18 16:04 04/25/18 17:00 Temperature Pulse Rate 139 H 136 H 139 H Respiratory Rate 20 20 20 Blood Pressure 81/56 L 88/66 L Pulse Oximetry 84 L 97 84 L 04/25/18 18:00 04/25/18 19:00 04/25/18 20:00 Temperature Pulse Rate 135 H 131 H 130 H Respiratory Rate 20 20 20 Blood Pressure 94/58 L 80/57 L Pulse Oximetry 86 L 86 L 04/25/18 20:05 04/25/18 21:00 04/25/18 21:11 Temperature 98.0 F Pulse Rate 130 H 131 H 130 H Respiratory Rate 20 20 20 Blood Pressure 89/58 L Pulse Oximetry 89 L 86 L 88 L 04/25/18 22:00 04/25/18 23:00 04/26/18 00:00 Temperature 97.9 F Pulse Rate 128 H 127 H 126 H Respiratory Rate 20 20 20 Blood Pressure Pulse Oximetry 77 L 79 L 77 L 04/26/18 00:03 04/26/18 01:00 04/26/18 02:00 Temperature Pulse Rate 126 H 124 H Respiratory Rate 20 20 20 Blood Pressure Pulse Oximetry 83 L 81 L 85 L 04/26/18 03:00 04/26/18 04:00 04/26/18 04:54 Temperature Pulse Rate 126 H 126 H Respiratory Rate 20 20 20 Blood Pressure Pulse Oximetry 90 L 90 L 78 L 04/26/18 05:00 04/26/18 06:00 Temperature 97.5 F L Pulse Rate 120 H 124 H Respiratory Rate 20 20 Blood Pressure Pulse Oximetry 81 L 88 L Intake & Output 04/25/18 04/26/18 04/26/18 18:59 06:59 18:59 Intake Total 1510 / 1510 4212.5 / 4212.5 Output Total 350 / 350 200 / 200 Balance 1160 / 1160 4012.5 / 4012.5 Weight 97 kg Intake: IV 1510 / 1510 4212.5 / 4212.5 Sodium Bicarbonate 8.4% Inj 100 100 / 100 ML @ 0 mls/hr .ROUTE .[facility] Rx#:[id number] DOBUTamine 250 MG/250 ML Premix 500 / 500 250 mg In 250 ml @ 2.5 MCG/KG/ MIN 14.7 mls/hr IV.CONT .[id number] [facility] Rx#:[id number] DOPamine 400 MG/250 ML Premix 750 / 750 400 mg In 250 ml @ 3 MCG/KG/MIN 11.25 mls/hr IV.CONT TITRATE PRN Rx#:[id number] Neosynephrine Inj 80 MG In D5W 500 / 500 Inj 492 ML @ 40 MCG/MIN 15 mls/ hr IV.CONT TITRATE PRN Rx#: [id number] Sodium Bicarbonate 8.4% Inj 150 1000 / 1000 MEQ In D5W Inj 850 ML @ 84 mls /hr IV.CONT .[id number] [facility] Rx#: [id number] Pitressin Inj 40 UNIT In D5W 100 / 100 100 / 100 Inj 98 ML @ 0.04 UNITS/MIN 6 mls/hr IV.CONT CONT [facility] Rx#: [id number] Azactam Inj 1,000 MG In NS Inj 200 / 200 100 / 100 100 ML @ 200 mls/hr IV.SIG Q12H [facility] Rx#:[id number] Calcium Chloride Inj 1 GM In 110 / 110 D5W Inj 100 ML @ 110 mls/hr IV. SIG ONCE ONE Rx#:[id number] Levophed-Dextrose 4 mg/250 ml 1000 / 1000 1000 / 1000 Drip 4 mg In 250 ml @ 2 MCG/MIN 7.5 mls/hr IV.SIG TITRATE PRN Rx#:[id number] Vancomycin Inj 1,250 MG In NS 262.5 / 262.5 Inj 250 ML @ 250 mls/hr IV.SIG ONCE ONE Rx#:[id number] Output: Urine Amount (Catheter) 150 / 150 200 / 200 Indwelling Urethral Catheter 150 / 150 200 / 200 Gastric Drainage 200 / 200 Orogastric Tube 200 / 200 Result Diagrams: 04/26/18 04:30 04/26/18 04:30 Other Results: Laboratory Results WBC 11.8 th/mm3 (4.0-11.0) H 04/26/18 04:30 RBC 4.86 mil/mm3 (4.50-5.90) 04/26/18 04:30 Hgb 15.4 gm/dL (13.0-17.0) 04/26/18 04:30 Hct 47.9 % (39.0-51.0) 04/26/18 04:30 MCV 98.7 fL (80.0-100.0) 04/26/18 04:30 MCH 31.8 pg (27.0-34.0) 04/26/18 04:30 MCHC 32.2 % (32.0-36.0) 04/26/18 04:30 RDW 17.9 % (11.6-17.2) H 04/26/18 04:30 Plt Count 43 th/mm3 (150-450) L D 04/26/18 04:30 MPV 10.7 fL (7.0-11.0) 04/26/18 04:30 Prelim Diff (Auto) Slide review pending 04/26/18 04:30 Neut % (Auto) 93.3 % (16.0-70.0) H 04/26/18 04:30 Lymph % (Auto) 0.9 % (9.0-44.0) L 04/26/18 04:30 Ware % (Auto) 1.1 % (0.0-8.0) 04/26/18 04:30 Eos % (Auto) 4.6 % (0.0-4.0) H 04/26/18 04:30 Baso % (Auto) 0.1 % (0.0-2.0) 04/26/18 04:30 Neut # (Auto) 11.0 th/mm3 (1.8-7.7) H 04/26/18 04:30 Lymph # (Auto) 0.1 th/mm3 (1.0-4.8) L 04/26/18 04:30 Ware # (Auto) 0.1 th/mm3 (0.0-0.9) 04/26/18 04:30 Eos # (Auto) 0.5 th/mm3 (0.0-0.4) H 04/26/18 04:30 Baso # (Auto) 0.0 th/mm3 (0.0-0.2) 04/26/18 04:30 WBC Differential Manual diff final 04/26/18 04:30 Seg Neuts % (Manual) 53 % (16-70) 04/26/18 04:30 Band Neuts % (Manual) 47 % (0-6) H 04/26/18 04:30 Abs Neuts (Manual) 11.8 th/mm3 (1.8-7.7) H 04/26/18 04:30 Nucleated RBCs/100 WBC 1 /100 WBC (0-0) H 04/26/18 04:30 Differential Comment . 04/26/18 04:30 Toxic Vacuolation Present (None) H 04/26/18 04:30 Platelet Estimate Low (Normal) L 04/26/18 04:30 Platelet Morphology Normal (Normal) 04/26/18 04:30 Ennis Cells 2+ (None) H 04/26/18 04:30 PT 16.1 sec (9.8-11.6) H 04/26/18 04:30 INR 1.6 Ratio 04/26/18 04:30 APTT 52.7 sec (23.4-31.7) H D 04/26/18 04:30 Puncture Site Art line 04/25/18 14:10 Patient Temperature 98.6 04/25/18 14:10 O2 Saturation 88 % (90-100) L* 04/25/18 14:10 ABG pH 7.17 (7.380-7.420) L* 04/25/18 14:10 ABG pCO2 56 mmHg (38-42) H* 04/25/18 14:10 ABG pO2 73 mmHG (61-120) 04/25/18 14:10 ABG HCO3 19 mmol/L (22-26) L 04/25/18 14:10 ABG O2 Content 20.5 Vol % (12.0-20.0) H 04/25/18 14:10 ABG Base Excess -7.8 mmol/L (-2-2) L 04/25/18 14:10 ABG Methemoglobin 1.9 % (0-2) 04/25/18 14:10 Lucien Test Present 04/25/18 05:29 Hemoglobin 16.6 G/DL (12.0-16.0) H 04/25/18 14:10 Carboxyhemoglobin 0.4 % (0-4) 04/25/18 14:10 O2 Delivery Device Ventilator 04/25/18 14:10 Vent Setting 16/600/peep5 04/25/18 14:10 Inspired O2 100 % 04/25/18 14:10 Critical Value Yes 04/25/18 14:10 Sodium 123 meq/L (136-145) L* 04/26/18 04:30 Potassium 5.2 meq/L (3.5-5.1) H 04/26/18 04:30 Chloride 90 meq/L (98-107) L 04/26/18 04:30 Carbon Dioxide 21.0 meq/L (21.0-32.0) 04/26/18 04:30 Anion Gap 12 meq/L (5-15) 04/26/18 04:30 BUN 92 mg/dL (7-18) H 04/26/18 04:30 Creatinine 3.84 mg/dL (0.60-1.30) H 04/26/18 04:30 Estimated GFR 16 mL/min (>89) L 04/26/18 04:30 POC Glucose 82 mg/dl (68-110) 04/25/18 00:32 Random Glucose 175 mg/dL (74-106) H 04/26/18 04:30 Lactic Acid 2.8 mmol/L (0.4-2.0) H 04/26/18 04:30 Calcium 6.2 mg/dL (8.5-10.1) L* D 04/26/18 04:30 Calcium Adj for Albumin 8.8 mg/dL (8.5-10.1) 04/26/18 04:30 Phosphorus 7.6 mg/dL (2.5-4.9) H 04/26/18 04:30 Magnesium 1.7 mg/dL (1.5-2.5) 04/26/18 04:30 Total Bilirubin 1.7 mg/dL (0.2-1.0) H 04/26/18 04:30 AST 39 U/L (15-37) H 04/26/18 04:30 ALT 14 U/L (12-78) 04/26/18 04:30 Alkaline Phosphatase 118 U/L (45-117) H 04/26/18 04:30 Total Creatine Kinase 261 U/L (39-308) 04/25/18 00:48 CK-MB (CK-2) 10.9 ng/mL (0.5-3.6) H 04/25/18 00:48 Troponin I 0.94 ng/mL (0.02-0.05) H* 04/25/18 10:05 B-Natriuretic Peptide 4185 pg/mL (0-100) H 04/25/18 10:05 Total Protein 3.7 g/dL (6.4-8.2) L 04/26/18 04:30 Albumin 0.8 g/dL (3.4-5.0) L 04/26/18 04:30 Lipase 15 U/L (73-393) L 04/25/18 00:48 Urine Color Alla (Yellw/Straw) 04/25/18 00:48 Urine Clarity Cloudy (Clear) H 04/25/18 00:48 Urine pH 5.0 (5.0-8.5) 04/25/18 00:48 Ur Specific [place] 1.020 (1.002-1.035) 04/25/18 00:48 Urine Protein 30 mg/dL (Neg-Trace) H 04/25/18 00:48 Urine Glucose (UA) Negative mg/dL (Negative) 04/25/18 00:48 Urine Ketones Negative mg/dL (Negative) 04/25/18 00:48 Urine Occult Blood Negative (Negative) 04/25/18 00:48 Urine Nitrate Negative (Negative) 04/25/18 00:48 Urine Bilirubin Negative (Negative) 04/25/18 00:48 Urine Urobilinogen 2.0 mg/dL (Less than 2) H 04/25/18 00:48 Ur Leukocyte Esterase Negative (Negative) 04/25/18 00:48 Urine RBC 2 /hpf (0-3) 04/25/18 00:48 Urine WBC 8 /hpf (0-5) H 04/25/18 00:48 Urine WBC Clumps Rare (None) H 04/25/18 00:48 Urine Bacteria Few /hpf (None) H 04/25/18 00:48 Hyaline Casts 91 /lpf (0-3) 04/25/18 00:48 Urine Mucus Few /lpf (Occasional) H 04/25/18 00:48 Micro UA Comment Cath-culture ind 04/25/18 00:48 Ur Microscopic Review Not Reportable 04/25/18 00:48 Urine Culture Comments Cath-cult indicated 04/25/18 00:48 Nasal Screen MRSA (PCR) Not detected (Negative) 04/25/18 04:15 Random Vancomycin 10.8 Comment 04/26/18 04:30 Urine Opiates Screen Neg (Neg) 04/25/18 00:48 Ur Barbiturates Screen Neg (Neg) 04/25/18 00:48 Ur Amphetamines Screen Neg (Neg) 04/25/18 00:48 U Benzodiazepines Scrn Neg (Neg) 04/25/18 00:48 Urine Cocaine Screen Neg (Neg) 04/25/18 00:48 U Cannabinoids Screen Neg (Neg) 04/25/18 00:48 Serum Alcohol Less than 3 mg/dL (0-5) 04/25/18 00:48 Impressions Abdomen/Pelvis CT 04/25/18 03:26 CONCLUSION: 1. Anasarca. 2. Small volume ascites. 3. Colonic diverticulosis. 4. Cholelithiasis. Cervical Spine CT 04/25/18 03:26 CONCLUSION: 1. Examination is degraded by motion artifact. 2. No gross fracture. 3. I cannot exclude subluxation at the C1-C2 articulation. Chest CT 04/25/18 03:26 CONCLUSION: 1. Cardiomegaly. 2. Bibasilar infiltrates. 3. Underlying chronic interstitial change. 4. Tiny bilateral pleural effusions. Head CT 04/25/18 03:26 CONCLUSION: 1. No acute intracranial abnormality. . Chest X-Ray 04/26/18 02:44 CONCLUSION: Unchanged exam. Objective Remarks: GENERAL: Critically ill-appearing gentleman intubated and nonresponsive,orotracheally intubated SKIN: Cool and dry. HEAD: Atraumatic. Normocephalic. EYES: Pupils equal and round. No scleral icterus. No injection or drainage. ENT: No nasal bleeding or discharge. Mucous membranes pink and moist. NECK: Trachea midline. JVD noted. CARDIOVASCULAR: Irregular rate RESPIRATORY: No accessory muscle use. Clear to auscultation. Breath sounds equal bilaterally. GASTROINTESTINAL: Abdomen soft, non-tender, nondistended. No guarding. MUSCULOSKELETAL: Extremities without clubbing, cyanosis, or edema. No obvious deformities. NEUROLOGICAL: Intubated and sedated. RASS 0. No gross focal/sensory deficits. Does not follow commands at this time Assessment and Plan - Assessment and Plan Plan: 72-year-old male with past medical history of COPD on home oxygen, diastolic heart failure, severe pulmonary hypertension, CKD stage IV, Afib RVR. He had worsening respiratory symptoms and peripheral edema which prompted outpatient efforts to increase diuresis through torsemide, spironolactone and then addition of metolazone. Through more aggressive diuresis efforts, his creatinine has worsened and yet he has findings of pulmonary edema, cor pulmonale and cardiogenic shock. The patient is continued condition continues to deteriorate, patient's CODE STATUS was changed to DNR. NEURO: Fentanyl drip for analgosedation Versed 2 mg IV push as needed RASS -2 RESP: Acute respiratory failure Pulmonary fibrosis Bronchiectasis Severe pulmonary hypertension PRVC, increased TV in attempt to correct respiratory acidosis. Respiratory rate increased to 18, with decreased itime 0.8 Duoneb q6 hours. Albuterol every 2 hours ABG-7.1 8/58/61/21/-5.9 on 100% FIO2 CV: Cardiogenic shock Cor pulmonale Severe pulmonary hypertension Atrial fibrillation Bedside cardiac ultrasound demonstrates dilated, failed RV. No change in IVC with respiratory cycle so does not appear he would tolerate fluid. LVEF appears normal. Hypotensive despite dopamine 20 mg/kg/min. Added dobutamine and levophed. Continue to attempt transition from dobutamine to milrinone. Not candidate for Flotrac due to Afib. Check CVP monitoring. GI: OGT to LIWS. FEN/RENAL: ELOINA overlying CKD Acute hyperkalemia Hyponatremia Chronic protein energy malnutrition Upon admission , given calcium chloride 1 g IV, Kayexalate 30 mg p.o., bicarb 100 mEq IV. Monitor BMP All IV fluids double concentrated when available Lang in place He has worsening renal failure , decision made no hemodialysis, his condition appears terminal. Sodium bicarbonate infusion ID: UTI UA with positive WBCs and few bacteria. Follow-up blood and urine culture. Has history of hives with cefuroxime. We will continue aztreonam 1 g IV every 8 hours. 04/25 gram-positive cocci bacteremiavancomycin added HEME: Thrombocytopenia Leukocytosis Bandemia Hemoglobin is normal. May be relatively hemoconcentrated following diuresis. ENDO: Euglycemic. PROPH: SCDs, Heparin 5000 units placed on hold for DVT prophylaxis. Protonix 40 mg IV daily for stress ulcer prophylaxis ACCESS: Inserted R IJ CVL 04/25/18 #2. Left femoral art line placed 04/25/18 #2 The patient is critically ill with cardiogenic shock and septic shock with multiorgan dysfunction and he is at risk for decompensation and . DO NOT RESUSCITATE. Code Status: DNR Discussed Condition With: Since and family at bedside. [employer]AP at bedside.
[2018-04-26 07:58] VITALS: RESP 18
[2018-04-26] MEDS ORDERED: Milrinone Inj 20 MG in Sodium Chlor 0.9% Inj 80 ML IV.CONT SCH (08:00)
[2018-04-26] MEDS: Pantoprazole Inj 40 MG Vial IV.PUSH SCH (08:57)
[2018-04-26] MEDS: Phenylephrine Inj 80 MG in Dextrose 5% in Water Inj 492 ML IV.CONT PRN ×4 (08:57→13:49)
[2018-04-26] MEDS: Senna/Docusate Sodium 8.6/50 MG Tablet PO SCH (08:57)
[2018-04-26 10:10] LABS: ABG Base Excess -6.3 mmol/L (-2-2); ABG PCO2 58 mmHg (38-42); ABG PO2 63 mmHG (61-120)
[2018-04-26 13:33] VITALS: TEMP 98.9
[2018-04-26] MEDS ORDERED: Vancomycin Inj 1,500 MG in Sodium Chlor 0.9% Inj 500 ML IV.SIG ONE (14:00)
[2018-04-26 14:05] VITALS: O2SAT 88
[2018-04-26] MEDS ORDERED: Hyoscyamine Inj 0.5 MG/ML Ampul IV.PUSH ONE (15:10)
[2018-04-26] MEDS ORDERED: Hyoscyamine Inj 0.5 MG/ML Ampul IV.PUSH PRN (15:10)
[2018-04-26] MEDS ORDERED: HYDROmorphone PF Inj 1 MG/ML Ampul IV.PUSH ONE ×2 (15:10)
[2018-04-26] MEDS ORDERED: HYDROmorphone PF Inj 1 MG/ML Ampul IV.PUSH PRN ×2 (15:10)
[2018-04-26] MEDS: fentaNYL 10 mcg/mL Premix Drip 2,500 MCG/250 ML BAG IV.SIG PRN (15:11)
[2018-04-26 17:12] VITALS: PULSE 139
--- NOTE | 2018-04-26 17:49 | P.PNPAL ---
Reason for Visit Reason for visit: a. To assist with evaluation and management of symptoms including: pain, dyspnea, anxiety. b. To assist medical decision maker(s) with: better understanding of current medical conditions; weighing benefits/burdens of medical treatment options; making medical treatment decisions. Subjective Subjective/Interval History: LATE ENTRY: Patient seen and examined in ICU. and many other family members at bedside. Patient remains critically ill on multiple pressors and vent support, FiO2 100. Family has elected to proceed with transition to comfort measures with compassionate withdrawal of life support. Family/Friend Interactions: Met with , 3 sons, daughters in law, daughter and son in law, brother and sister, niece and many other family members. Reviewed clinical course since admission and current clinical findings including multi system organ failure. Advised family medical team does not expect patient to survive this hospitalization. Family all in agreement that patient would not want to be artificially prolonged by medications and machines. Family has decided to transition to comfort focused care with compassionate withdrawal of life support. Anticipatory guidance provided. Questions answered. Letters provided for family members for work. Questions answered support provided. Advance Directives Health Care Surrogate Name and Number: Sarah Herring, /HCP: [phone] Significant change in goals:: Family has elected transition to comfort measures with compassionate withdrawal of life support. Objective Vital Signs: Vital Signs 04/25/18 18:00 04/25/18 19:00 04/25/18 20:00 Temperature Pulse Rate 135 H 131 H 130 H Respiratory Rate 20 20 20 Blood Pressure 94/58 L 80/57 L Pulse Oximetry 86 L 86 L 04/25/18 20:05 04/25/18 21:00 04/25/18 21:11 Temperature 98.0 F Pulse Rate 130 H 131 H 130 H Respiratory Rate 20 20 20 Blood Pressure 89/58 L Pulse Oximetry 89 L 86 L 88 L 04/25/18 22:00 04/25/18 23:00 04/26/18 00:00 Temperature 97.9 F Pulse Rate 128 H 127 H 126 H Respiratory Rate 20 20 20 Blood Pressure Pulse Oximetry 77 L 79 L 77 L 04/26/18 00:03 04/26/18 01:00 04/26/18 02:00 Temperature Pulse Rate 126 H 124 H Respiratory Rate 20 20 20 Blood Pressure Pulse Oximetry 83 L 81 L 85 L 04/26/18 03:00 12/04/18 04:00 04/26/18 04:54 Temperature Pulse Rate 126 H 126 H Respiratory Rate 20 20 20 Blood Pressure Pulse Oximetry 90 L 90 L 78 L 04/26/18 05:00 04/26/18 06:00 04/26/18 07:00 Temperature 97.5 F L Pulse Rate 120 H 124 H 127 H Respiratory Rate 20 20 20 Blood Pressure Pulse Oximetry 81 L 88 L 81 L 04/26/18 07:56 04/26/18 08:00 04/26/18 08:34 Temperature 99.2 F Pulse Rate 128 H 125 H Respiratory Rate 18 18 18 Blood Pressure Pulse Oximetry 89 L 87 L 04/26/18 09:00 04/26/18 10:00 04/26/18 11:00 Temperature Pulse Rate 128 H 118 H 122 H Respiratory Rate 18 18 18 Blood Pressure Pulse Oximetry 98 88 L 94 L 04/26/18 12:00 04/26/18 12:20 04/26/18 13:00 Temperature 98.9 F Pulse Rate 118 H 117 H Respiratory Rate 18 18 18 Blood Pressure Pulse Oximetry 91 L 90 L 84 L 04/26/18 14:00 04/26/18 16:00 Temperature Pulse Rate 120 H 139 H Respiratory Rate 18 Blood Pressure Pulse Oximetry 88 L Intake & Output 04/25/18 04/26/18 04/26/18 18:59 06:59 18:59 Intake Total 1510 / 1510 4712.5 / 4712.5 1750 / 1750 Output Total 350 / 350 200 / 200 Balance 1160 / 1160 4512.5 / 4512.5 1750 / 1750 Weight 97 kg Intake: IV 1510 / 1510 4712.5 / 4712.5 1750 / 1750 Sodium Bicarbonate 8.4% Inj 100 100 / 100 ML @ 0 mls/hr .ROUTE .[facility] Rx#:[id number] DOBUTamine 250 MG/250 ML Premix 500 / 500 250 mg In 250 ml @ 2.5 MCG/KG/ MIN 14.7 mls/hr IV.CONT .[id number] [facility] Rx#:[id number] DOPamine 400 MG/250 ML Premix 750 / 750 500 / 500 400 mg In 250 ml @ 3 MCG/KG/MIN 11.25 mls/hr IV.CONT TITRATE PRN Rx#:[id number] Neosynephrine Inj 80 MG In D5W 1000 / 1000 500 / 500 Inj 492 ML @ 40 MCG/MIN 15 mls/ hr IV.CONT TITRATE PRN Rx#: [id number] Sodium Bicarbonate 8.4% Inj 150 1000 / 1000 MEQ In D5W Inj 850 ML @ 84 mls /hr IV.CONT .[id number] [facility] Rx#: [id number] Pitressin Inj 40 UNIT In D5W 100 / 100 100 / 100 Inj 98 ML @ 0.04 UNITS/MIN 6 mls/hr IV.CONT CONT [facility] Rx#: [id number] Azactam Inj 1,000 MG In NS Inj 200 / 200 100 / 100 100 ML @ 200 mls/hr IV.SIG Q12H [facility] Rx#:[id number] Calcium Chloride Inj 1 GM In 110 / 110 D5W Inj 100 ML @ 110 mls/hr IV. SIG ONCE ONE Rx#:[id number] Levophed-Dextrose 4 mg/250 ml 1000 / 1000 1000 / 1000 500 / 500 Drip 4 mg In 250 ml @ 2 MCG/MIN 7.5 mls/hr IV.SIG TITRATE PRN Rx#:[id number] Vancomycin Inj 1,250 MG In NS 262.5 / 262.5 Inj 250 ML @ 250 mls/hr IV.SIG ONCE ONE Rx#:[id number] fentaNYL 10 mcg/mL Premix Drip 250 / 250 2,500 mcg In 250 ml @ 50 MCG/HR 5 mls/hr IV.SIG TITRATE PRN Rx #:[id number] Output: Urine Amount (Catheter) 150 / 150 200 / 200 Indwelling Urethral Catheter 150 / 150 200 / 200 Gastric Drainage 200 / 200 Orogastric Tube 200 / 200 Physical Exam: CONSTITUTIONAL/GENERAL: This is a critically, chronically ill appearing patient , restless, anxious on mech vent. TUBES/LINES/DRAINS:ETT, OG to suction, right IJ central line, Lang. SKIN: Bruises bilateral UEs. Feet cold to touch, right LE peripheral vascular changes, purple. Skin tears bilateral UEs. EYES: eyes closed. ENT: Unable to assess hearing. Nose without bleeding or purulent drainage. Throat difficult to visualize due to tubes. CARDIOVASCULAR: tachycardic, irregular. Rate 130s. RESPIRATORY/CHEST: diffuse rales bilaterally on vent. GASTROINTESTINAL: Abdomen soft. Anasarca abdomen, chest and upper extremities. GENITOURINARY: Without palpable bladder distension. Alng catheter in place. MUSCULOSKELETAL: Extremities with edema. Bilateral LE mottling. NEUROLOGICAL: unresponsive. PSYCHIATRIC: unresponsive. Diagnostic Tests Laboratory: Laboratory Results - last 72 hr 04/25/18 04/25/18 04/25/18 00:32 00:48 00:48 WBC 13.5 H RBC 5.05 Hgb 16.2 Hct 48.4 MCV 96.0 MCH 32.2 MCHC 33.5 RDW 17.1 Plt Count 129 L MPV 10.4 Prelim Diff (Auto) Neut % (Auto) 91.8 H Lymph % (Auto) 1.9 L [place] % (Auto) 2.1 Eos % (Auto) 4.1 H Baso % (Auto) 0.1 Neut # (Auto) 12.4 H Lymph # (Auto) 0.3 L [place] # (Auto) 0.3 Eos # (Auto) 0.6 H Baso # (Auto) 0.0 WBC Differential . Seg Neuts % (Manual) Band Neuts % (Manual) Abs Neuts (Manual) Nucleated RBCs/100 WBC Differential Comment Auto diff final Toxic Vacuolation Platelet Estimate Platelet Morphology Pember[place] Cells PT INR APTT Puncture Site Patient Temperature O2 Saturation ABG pH ABG pCO2 ABG pO2 ABG HCO3 ABG O2 Content ABG Base Excess ABG Methemoglobin Lucien Test Hemoglobin Carboxyhemoglobin O2 Delivery Device Vent Setting Inspired O2 Critical Value Sodium 131 L Potassium 6.4 H Chloride 98 Carbon Dioxide 21.0 Anion Gap 12 BUN 94 H Creatinine 4.01 H Estimated GFR 13 L POC Glucose 82 Random Glucose 80 Lactic Acid Calcium 7.4 L* Calcium Adj for Albumin 9.0 Phosphorus Magnesium 1.8 Total Bilirubin 1.0 AST 43 H ALT 18 Alkaline Phosphatase 121 H Total Creatine Kinase 261 CK-MB (CK-2) 10.9 H Troponin I 0.66 H* B-Natriuretic Peptide Total Protein 4.3 L Albumin 1.1 L Lipase 15 L Urine Color Urine Clarity Urine pH Ur Specific [place] Urine Protein Urine Glucose (UA) Urine Ketones Urine Occult Blood Urine Nitrate Urine Bilirubin Urine Urobilinogen Ur Leukocyte Esterase Urine RBC Urine WBC Urine WBC Clumps Urine Bacteria Hyaline Casts Urine Mucus Micro UA Comment Ur Microscopic Review Urine Culture Comments Nasal Screen MRSA (PCR) Random Vancomycin Urine Opiates Screen Ur Barbiturates Screen Ur Amphetamines Screen U Benzodiazepines Scrn Urine Cocaine Screen U Cannabinoids Screen Serum Alcohol Less than 3 04/25/18 04/25/18 04/25/18 00:48 00:48 00:48 WBC RBC Hgb Hct MCV MCH MCHC RDW Plt Count MPV Prelim Diff (Auto) Neut % (Auto) Lymph % (Auto) [place] % (Auto) Eos % (Auto) Baso % (Auto) Neut # (Auto) Lymph # (Auto) [place] # (Auto) Eos # (Auto) Baso # (Auto) WBC Differential Seg Neuts % (Manual) Band Neuts % (Manual) Abs Neuts (Manual) Nucleated RBCs/100 WBC Differential Comment Toxic Vacuolation Platelet Estimate Platelet Morphology Lashay Cells PT 14.9 H INR 1.5 APTT 42.5 H Puncture Site Patient Temperature O2 Saturation ABG pH ABG pCO2 ABG pO2 ABG HCO3 ABG O2 Content ABG Base Excess ABG Methemoglobin Lucien Test Hemoglobin Carboxyhemoglobin O2 Delivery Device Vent Setting Inspired O2 Critical Value Sodium Potassium Chloride Carbon Dioxide Anion Gap BUN Creatinine Estimated GFR POC Glucose Random Glucose Lactic Acid 3.9 H Calcium Calcium Adj for Albumin Phosphorus Magnesium Total Bilirubin AST ALT Alkaline Phosphatase Total Creatine Kinase CK-MB (CK-2) Troponin I B-Natriuretic Peptide 2388 H Total Protein Albumin Lipase Urine Color Urine Clarity Urine pH Ur Specific [place] Urine Protein Urine Glucose (UA) Urine Ketones Urine Occult Blood Urine Nitrate Urine Bilirubin Urine Urobilinogen Ur Leukocyte Esterase Urine RBC Urine WBC Urine WBC Clumps Urine Bacteria Hyaline Casts Urine Mucus Micro UA Comment Ur Microscopic Review Urine Culture Comments Nasal Screen MRSA (PCR) Random Vancomycin Urine Opiates Screen Ur Barbiturates Screen Ur Amphetamines Screen U Benzodiazepines Scrn Urine Cocaine Screen U Cannabinoids Screen Serum Alcohol 04/25/18 04/25/18 04/25/18 00:48 00:48 04:15 WBC RBC Hgb Hct MCV MCH MCHC RDW Plt Count MPV Prelim Diff (Auto) Neut % (Auto) Lymph % (Auto) [place] % (Auto) Eos % (Auto) Baso % (Auto) Neut # (Auto) Lymph # (Auto) [place] # (Auto) Eos # (Auto) Baso # (Auto) WBC Differential Seg Neuts % (Manual) Band Neuts % (Manual) Abs Neuts (Manual) Nucleated RBCs/100 WBC Differential Comment Toxic Vacuolation Platelet Estimate Platelet Morphology [place] Cells PT INR APTT Puncture Site Patient Temperature O2 Saturation ABG pH ABG pCO2 ABG pO2 ABG HCO3 ABG O2 Content ABG Base Excess ABG Methemoglobin Lucien Test Hemoglobin Carboxyhemoglobin O2 Delivery Device Vent Setting Inspired O2 Critical Value Sodium Potassium Chloride Carbon Dioxide Anion Gap BUN Creatinine Estimated GFR POC Glucose Random Glucose Lactic Acid Calcium Calcium Adj for Albumin Phosphorus Magnesium Total Bilirubin AST ALT Alkaline Phosphatase Total Creatine Kinase CK-MB (CK-2) Troponin I B-Natriuretic Peptide Total Protein Albumin Lipase Urine Color [place] Urine Clarity Cloudy H Urine pH 5.0 Ur Specific [place] 1.020 Urine Protein 30 H Urine Glucose (UA) Negative Urine Ketones Negative Urine Occult Blood Negative Urine Nitrate Negative Urine Bilirubin Negative Urine Urobilinogen 2.0 H Ur Leukocyte Esterase Negative Urine RBC 2 Urine WBC 8 H Urine WBC Clumps Rare H Urine Bacteria Few H Hyaline Casts 91 Urine Mucus Few H Micro UA Comment Cath-culture ind Ur Microscopic Review Not Reportable Urine Culture Comments Cath-cult indicated Nasal Screen MRSA (PCR) Not detected Random Vancomycin Urine Opiates Screen Neg Ur Barbiturates Screen Neg Ur Amphetamines Screen Neg U Benzodiazepines Scrn Neg Urine Cocaine Screen Neg U Cannabinoids Screen Neg Serum Alcohol 04/25/18 04/25/18 04/25/18 05:29 09:47 10:05 WBC 12.6 H RBC 4.97 Hgb 15.9 Hct 48.5 MCV 97.6 MCH 32.0 MCHC 32.8 RDW 17.7 H Plt Count 115 L MPV 9.4 Prelim Diff (Auto) Neut % (Auto) 89.7 H Lymph % (Auto) 1.2 L [place] % (Auto) 1.3 Eos % (Auto) 7.7 H Baso % (Auto) 0.1 Neut # (Auto) 11.3 H Lymph # (Auto) 0.2 L [place] # (Auto) 0.2 Eos # (Auto) 1.0 H Baso # (Auto) 0.0 WBC Differential . Seg Neuts % (Manual) Band Neuts % (Manual) Abs Neuts (Manual) Nucleated RBCs/100 WBC Differential Comment Auto diff final Toxic Vacuolation Platelet Estimate Platelet Morphology Pember[place] Cells PT INR APTT Puncture Site Right radial Patient Temperature 98.6 O2 Saturation 93 ABG pH 7.21 L* ABG pCO2 49 H ABG pO2 102 ABG HCO3 19 L ABG O2 Content 22.6 H ABG Base Excess -8.0 L ABG Methemoglobin 1.9 Lucien Test Present Hemoglobin 17.3 H Carboxyhemoglobin 0.4 O2 Delivery Device Ventilator Vent Setting Prvc16/500/1.0/+5 Inspired O2 100 Critical Value Yes Sodium Potassium Chloride Carbon Dioxide Anion Gap BUN Creatinine Estimated GFR POC Glucose Random Glucose Lactic Acid 1.7 Calcium Calcium Adj for Albumin Phosphorus Magnesium Total Bilirubin AST ALT Alkaline Phosphatase Total Creatine Kinase CK-MB (CK-2) Troponin I B-Natriuretic Peptide Total Protein Albumin Lipase Urine Color Urine Clarity Urine pH Ur Specific [place] Urine Protein Urine Glucose (UA) Urine Ketones Urine Occult Blood Urine Nitrate Urine Bilirubin Urine Urobilinogen Ur Leukocyte Esterase Urine RBC Urine WBC Urine WBC Clumps Urine Bacteria Hyaline Casts Urine Mucus Micro UA Comment Ur Microscopic Review Urine Culture Comments Nasal Screen MRSA (PCR) Random Vancomycin Urine Opiates Screen Ur Barbiturates Screen Ur Amphetamines Screen U Benzodiazepines Scrn Urine Cocaine Screen U Cannabinoids Screen Serum Alcohol 04/25/18 04/25/18 04/25/18 10:05 10:05 11:53 WBC RBC Hgb Hct MCV MCH MCHC RDW Plt Count MPV Prelim Diff (Auto) Neut % (Auto) Lymph % (Auto) [place] % (Auto) Eos % (Auto) Baso % (Auto) Neut # (Auto) Lymph # (Auto) [place] # (Auto) Eos # (Auto) Baso # (Auto) WBC Differential Seg Neuts % (Manual) Band Neuts % (Manual) Abs Neuts (Manual) Nucleated RBCs/100 WBC Differential Comment Toxic Vacuolation Platelet Estimate Platelet Morphology Pember[place] Cells PT INR APTT Puncture Site Art line Patient Temperature 98.6 O2 Saturation 86 L* ABG pH 7.19 L* ABG pCO2 55 H* ABG pO2 65 ABG HCO3 20 L ABG O2 Content 19.5 ABG Base Excess -6.8 L ABG Methemoglobin 2.0 Lucien Test Hemoglobin 16.2 H Carboxyhemoglobin 0.4 O2 Delivery Device Ventilator Vent Setting 16/600/1.0/peep5 Inspired O2 100 Critical Value Yes Sodium 131 L Potassium 5.8 H Chloride 97 L Carbon Dioxide 21.5 Anion Gap 13 BUN 94 H Creatinine 3.79 H Estimated GFR 14 L POC Glucose Random Glucose 130 H Lactic Acid Calcium 7.0 L* Calcium Adj for Albumin 9.4 Phosphorus 8.0 H Magnesium 1.9 Total Bilirubin 1.3 H AST 39 H ALT 16 Alkaline Phosphatase 124 H Total Creatine Kinase CK-MB (CK-2) Troponin I 0.94 H* B-Natriuretic Peptide 4185 H Total Protein 4.2 L Albumin 1.0 L Lipase Urine Color Urine Clarity Urine pH Ur Specific [place] Urine Protein Urine Glucose (UA) Urine Ketones Urine Occult Blood Urine Nitrate Urine Bilirubin Urine Urobilinogen Ur Leukocyte Esterase Urine RBC Urine WBC Urine WBC Clumps Urine Bacteria Hyaline Casts Urine Mucus Micro UA Comment Ur Microscopic Review Urine Culture Comments Nasal Screen MRSA (PCR) Random Vancomycin Urine Opiates Screen Ur Barbiturates Screen Ur Amphetamines Screen U Benzodiazepines Scrn Urine Cocaine Screen U Cannabinoids Screen Serum Alcohol 04/25/18 04/25/18 04/26/18 13:10 14:10 04:30 WBC 11.8 H RBC 4.86 Hgb 15.4 Hct 47.9 MCV 98.7 MCH 31.8 MCHC 32.2 RDW 17.9 H Plt Count 43 L D MPV 10.7 Prelim Diff (Auto) Slide review pending Neut % (Auto) 93.3 H Lymph % (Auto) 0.9 L [place] % (Auto) 1.1 Eos % (Auto) 4.6 H Baso % (Auto) 0.1 Neut # (Auto) 11.0 H Lymph # (Auto) 0.1 L [place] # (Auto) 0.1 Eos # (Auto) 0.5 H Baso # (Auto) 0.0 WBC Differential Manual diff final Seg Neuts % (Manual) 53 Band Neuts % (Manual) 47 H Abs Neuts (Manual) 11.8 H Nucleated RBCs/100 WBC 1 H Differential Comment . Toxic Vacuolation Present H Platelet Estimate Low L Platelet Morphology Normal Pember[place] Cells 2+ H PT INR APTT Puncture Site Art line Patient Temperature 98.6 O2 Saturation 88 L* ABG pH 7.17 L* ABG pCO2 56 H* ABG pO2 73 ABG HCO3 19 L ABG O2 Content 20.5 H ABG Base Excess -7.8 L ABG Methemoglobin 1.9 Lucien Test Hemoglobin 16.6 H Carboxyhemoglobin 0.4 O2 Delivery Device Ventilator Vent Setting 16/600/peep5 Inspired O2 100 Critical Value Yes Sodium Potassium Chloride Carbon Dioxide Anion Gap BUN Creatinine Estimated GFR POC Glucose Random Glucose Lactic Acid 1.9 Calcium Calcium Adj for Albumin Phosphorus Magnesium Total Bilirubin AST ALT Alkaline Phosphatase Total Creatine Kinase CK-MB (CK-2) Troponin I B-Natriuretic Peptide Total Protein Albumin Lipase Urine Color Urine Clarity Urine pH Ur Specific [place] Urine Protein Urine Glucose (UA) Urine Ketones Urine Occult Blood Urine Nitrate Urine Bilirubin Urine Urobilinogen Ur Leukocyte Esterase Urine RBC Urine WBC Urine WBC Clumps Urine Bacteria Hyaline Casts Urine Mucus Micro UA Comment Ur Microscopic Review Urine Culture Comments Nasal Screen MRSA (PCR) Random Vancomycin Urine Opiates Screen Ur Barbiturates Screen Ur Amphetamines Screen U Benzodiazepines Scrn Urine Cocaine Screen U Cannabinoids Screen Serum Alcohol 04/26/18 04/26/18 04/26/18 04:30 04:30 04:30 WBC RBC Hgb Hct MCV MCH MCHC RDW Plt Count MPV Prelim Diff (Auto) Neut % (Auto) Lymph % (Auto) [place] % (Auto) Eos % (Auto) Baso % (Auto) Neut # (Auto) Lymph # (Auto) [place] # (Auto) Eos # (Auto) Baso # (Auto) WBC Differential Seg Neuts % (Manual) Band Neuts % (Manual) Abs Neuts (Manual) Nucleated RBCs/100 WBC Differential Comment Toxic Vacuolation Platelet Estimate Platelet Morphology Lashay Cells PT 16.1 H INR 1.6 APTT 52.7 H D Puncture Site Patient Temperature O2 Saturation ABG pH ABG pCO2 ABG pO2 ABG HCO3 ABG O2 Content ABG Base Excess ABG Methemoglobin Lucien Test Hemoglobin Carboxyhemoglobin O2 Delivery Device Vent Setting Inspired O2 Critical Value Sodium 123 L* Potassium 5.2 H Chloride 90 L Carbon Dioxide 21.0 Anion Gap 12 BUN 92 H Creatinine 3.84 H Estimated GFR 16 L POC Glucose Random Glucose 175 H Lactic Acid 2.8 H Calcium 6.2 L* D Calcium Adj for Albumin 8.8 Phosphorus 7.6 H Magnesium 1.7 Total Bilirubin 1.7 H AST 39 H ALT 14 Alkaline Phosphatase 118 H Total Creatine Kinase CK-MB (CK-2) Troponin I B-Natriuretic Peptide Total Protein 3.7 L Albumin 0.8 L Lipase Urine Color Urine Clarity Urine pH Ur Specific [place] Urine Protein Urine Glucose (UA) Urine Ketones Urine Occult Blood Urine Nitrate Urine Bilirubin Urine Urobilinogen Ur Leukocyte Esterase Urine RBC Urine WBC Urine WBC Clumps Urine Bacteria Hyaline Casts Urine Mucus Micro UA Comment Ur Microscopic Review Urine Culture Comments Nasal Screen MRSA (PCR) Random Vancomycin 10.8 Urine Opiates Screen Ur Barbiturates Screen Ur Amphetamines Screen U Benzodiazepines Scrn Urine Cocaine Screen U Cannabinoids Screen Serum Alcohol 04/26/18 04/26/18 04/26/18 07:14 08:50 09:55 WBC RBC Hgb Hct MCV MCH MCHC RDW Plt Count MPV Prelim Diff (Auto) Neut % (Auto) Lymph % (Auto) [place] % (Auto) Eos % (Auto) Baso % (Auto) Neut # (Auto) Lymph # (Auto) [place] # (Auto) Eos # (Auto) Baso # (Auto) WBC Differential Seg Neuts % (Manual) Band Neuts % (Manual) Abs Neuts (Manual) Nucleated RBCs/100 WBC Differential Comment Toxic Vacuolation Platelet Estimate Platelet Morphology Lashay Cells PT INR APTT Puncture Site Art line Art line Patient Temperature 98.6 98.6 O2 Saturation 86 L* 88 L* ABG pH 7.19 L* 7.18 L* ABG pCO2 58 H* 58 H* ABG pO2 61 63 ABG HCO3 21 L 21 L ABG O2 Content 18.8 19.0 ABG Base Excess -5.9 L -6.3 L ABG Methemoglobin 2.0 2.0 Lucien Test Hemoglobin 15.6 15.4 Carboxyhemoglobin 0.5 0.6 O2 Delivery Device Ventilator Ventilator Vent Setting 20/600/peep5 18/600/peep7 Inspired O2 100 100 Critical Value Yes Yes Sodium Potassium Chloride Carbon Dioxide Anion Gap BUN Creatinine Estimated GFR POC Glucose Random Glucose Lactic Acid 2.9 H Calcium Calcium Adj for Albumin Phosphorus Magnesium Total Bilirubin AST ALT Alkaline Phosphatase Total Creatine Kinase CK-MB (CK-2) Troponin I B-Natriuretic Peptide Total Protein Albumin Lipase Urine Color Urine Clarity Urine pH Ur Specific [place] Urine Protein Urine Glucose (UA) Urine Ketones Urine Occult Blood Urine Nitrate Urine Bilirubin Urine Urobilinogen Ur Leukocyte Esterase Urine RBC Urine WBC Urine WBC Clumps Urine Bacteria Hyaline Casts Urine Mucus Micro UA Comment Ur Microscopic Review Urine Culture Comments Nasal Screen MRSA (PCR) Random Vancomycin Urine Opiates Screen Ur Barbiturates Screen Ur Amphetamines Screen U Benzodiazepines Scrn Urine Cocaine Screen U Cannabinoids Screen Serum Alcohol 04/26/18 14:30 WBC RBC Hgb Hct MCV MCH MCHC RDW Plt Count MPV Prelim Diff (Auto) Neut % (Auto) Lymph % (Auto) [place] % (Auto) Eos % (Auto) Baso % (Auto) Neut # (Auto) Lymph # (Auto) [place] # (Auto) Eos # (Auto) Baso # (Auto) WBC Differential Seg Neuts % (Manual) Band Neuts % (Manual) Abs Neuts (Manual) Nucleated RBCs/100 WBC Differential Comment Toxic Vacuolation Platelet Estimate Platelet Morphology Pember[place] Cells PT INR APTT Puncture Site Patient Temperature O2 Saturation ABG pH ABG pCO2 ABG pO2 ABG HCO3 ABG O2 Content ABG Base Excess ABG Methemoglobin Lucien Test Hemoglobin Carboxyhemoglobin O2 Delivery Device Vent Setting Inspired O2 Critical Value Sodium Potassium Chloride Carbon Dioxide Anion Gap BUN Creatinine Estimated GFR POC Glucose Random Glucose Lactic Acid 2.8 H Calcium Calcium Adj for Albumin Phosphorus Magnesium Total Bilirubin AST ALT Alkaline Phosphatase Total Creatine Kinase CK-MB (CK-2) Troponin I B-Natriuretic Peptide Total Protein Albumin Lipase Urine Color Urine Clarity Urine pH Ur Specific [place] Urine Protein Urine Glucose (UA) Urine Ketones Urine Occult Blood Urine Nitrate Urine Bilirubin Urine Urobilinogen Ur Leukocyte Esterase Urine RBC Urine WBC Urine WBC Clumps Urine Bacteria Hyaline Casts Urine Mucus Micro UA Comment Ur Microscopic Review Urine Culture Comments Nasal Screen MRSA (PCR) Random Vancomycin Urine Opiates Screen Ur Barbiturates Screen Ur Amphetamines Screen U Benzodiazepines Scrn Urine Cocaine Screen U Cannabinoids Screen Serum Alcohol Result Diagrams: 04/26/18 04:30 04/26/18 04:30 Microbiology: Microbiology 04/25/18 00:48 Urine Culture - Preliminary Catheterized Urine No growth in 24 hours 04/25/18 00:48 Aerobic Blood Culture - Final Blood - Peripheral Group B beta Strep Anaerobic Blood Culture - Final Group B beta Strep 04/25/18 00:45 Aerobic Blood Culture - Preliminary Blood - Peripheral Group B beta Strep Anaerobic Blood Culture - Final Group B beta Strep Imaging: Abdomen/Pelvis CT 04/25/18 03:26 CONCLUSION: 1. Anasarca. 2. Small volume ascites. 3. Colonic diverticulosis. 4. Cholelithiasis. Cervical Spine CT 04/25/18 03:26 CONCLUSION: 1. Examination is degraded by motion artifact. 2. No gross fracture. 3. I cannot exclude subluxation at the C1-C2 articulation. Chest CT 04/25/18 03:26 CONCLUSION: 1. Cardiomegaly. 2. Bibasilar infiltrates. 3. Underlying chronic interstitial change. 4. Tiny bilateral pleural effusions. Head CT 04/25/18 03:26 CONCLUSION: 1. No acute intracranial abnormality. . Chest X-Ray 04/26/18 02:44 CONCLUSION: Unchanged exam. Procedures: * 04/25/18 - intubated, right IJ central line placed. Assessment and Plan - Disease Oriented Problem List (1) Cardiogenic shock (2) Acute on chronic renal failure (3) Hyperkalemia (4) Acute respiratory failure (5) Cor pulmonale (6) Atrial fibrillation with RVR (7) Pulmonary hypertension (8) Diastolic heart failure (9) Severe protein-calorie malnutrition (10) UTI (urinary tract infection) Pertinent Non-Medical Issues: Psychosocial: . Supported by children, siblings and many other family members. Spiritual: Supported by their local busher helper. Legal:Patient is not capacitated to make his own healthcare decisions, will not regain capacity. According to [place] statutes, healthcare proxy decision making falls to the patient's spouse. Ethical issues impacting care: No known concerns at this time. Important Contacts: * Sarah Herring, /HCP: [phone] Prognosis: Patient with oxygen dependent COPD, pulmonary hypertension, diastolic heart failure admitted with cor pulmonale, respiratory and acute on chronic renal failure, hyperkalemia remains critically ill in ICU, not expected to survive this hospitalization. Code Status: No Code DNR Plan: * Patient is not capacitated to make his own healthcare decisions, will not regain capacity. According to [place] statutes, healthcare proxy decision making falls to the patient's spouse. * NO CODE. * - Family has decided to proceed to transition to comfort with compassionate withdrawal of life support. Anticipatory guidance provided. * Discussed with nursing staff, Dr. Rock. * Family busher helper at bedside. * Letter provided for many family members for work. * Exhibits B & C on chart signed. * SYMPTOMS: Pain: Secondary to intubation, elevated troponin, etc. patient sedated on fentanyl drip, increase during my visit to 250 mcg given what appeared to be anxiety and pain. Dyspnea: On mechanical vent, on fentanyl drip , Versed drip added. Anxiety: Versed PRN ordered for anxiety when awake. Appears more comfortable with addition of Versed drip. Requiring increasing pressor support given need for sedation. Orders written for comfort measures. * Positive care will continue to follow throughout hospital course to assist with symptom management further clarification of goals of medical treatment. Attestation Attestation: To help prompt me to consider important information that might be impacting today's encounter and assessment, information from prior notes written by myself or my colleagues may have been "brought forward" into today's note. My signature on this note, however, is an attestation that I personally performed the exam, history, and/or decision-making noted today, and, unless otherwise indicated, the interactions with patient, family, and staff as well as the review of records all occurred today. I also attest that the listed assessment and stated plan reflect my best clinical judgment today based on the combination of historical information, prior notes, and today's exam/ interactions. When time spent is documented, it refers only to time spent today by the signer, or if indicated, combined time spent today by collaborating physician/nurse practitioner.
--- NOTE | 2018-04-27 17:04 | P.DN ---
- Provider Primary care physician: UNKNOWN Admitting clinician: Arpita Cardozo Attending physician on admission: Stacie Shankar Consults: 04/25/18 06:57 Consult to Palliative Care Routine Consulting Provider: Camron Cuevas Reason for Consultation: Cor pulmonale with multiorgan failure. Doubt will survive this hospitalization. Goals of care. Notified:: Service Spoke with:: Marli Date Notified:: 04/25/18 Time Notified:: 07:21 Ordering Provider: CHARU 04/25/18 06:59 Consult to Nephrology Routine Consulting Provider: Amando Webber Does the patient have a Bit Setter who follows them?: Yes Preferred Nephrology Extension Specialist:: Amando Webber Reason for Consultation: Patient known to Dr. Webber ELOINA over CKD, hyperkalemia Notified:: Service Spoke with:: Marli Date Notified:: 04/25/18 Time Notified:: 07:20 Ordering Provider: CHARU Pronouncing clinician: Herminia Rock - Date and Time Date of admission: 04/25/18 02:30 Date of : 04/26/18 Time of : 16:16 - Summary Brief History: 72-year-old male with past medical history of COPD on 3 L home O2, diastolic heart failure, severe pulmonary hypertension, CKD stage IV, atrial fibrillation, prior alcohol dependence, prior tobacco abuse. His states that he has had generalized weakness for 3-4 days with poor p.o. intake. Tonight he had a bowel movement with diarrhea and afterwards slid off the toilet. He had no loss of consciousness but she noticed he had significantly worsening shortness of breath and EVAC was summoned. When EVAC arrived he had sats in the 80s despite nonrebreather. He was intubated after receiving etomidate and Versed. In the ED he was hypotensive on arrival and dopamine was initiated which is currently running at 28 mcg/kg/min. He has CKD with creatinine 1.9-2.2. Currently his creatinine is 4 with BUN 94 with potassium 6.4. His states he is "always short of breath" but it was worse over the last 2 weeks with increasing peripheral edema. She went to the nougat candy maker helper Dr. Iniguez who added metolazone Wednesday/Wednesday/Wednesday to his current regimen of spironolactone and torsemide. He was scheduled to have follow-up labs tomorrow. No fevers or chills. Result Diagrams: 04/26/18 04:30 04/26/18 04:30 Hospital Course: Subjective Remarks/Hospital Course: 04/26: Continued deterioration ,hemodynamics worsening. Echo revealed PASP 66 with severe RV systolic dysfunction. Milrinone was added to medication regimen , currently at its maximum dose, attempts made to wean dobutamine thus far unsuccessful. The patient continues on levophed, dopamine, dobutamine, vasopressin as well as phenylephrine. MAP has remained low 50's. the family met with palliative care yesterday in the a.m. , decision was made for DNR status, not to pursue hemodialysis and palliative care was consulted. Decision by patient's was to continue current care await family out of town arrival , for possible initiation of comfort care measures. This a.m. during evaluation inquiry from the patient regarding comfort care measures. Explanation provided, to be seen by palliative this a.m.. Labs reveal hyponatremia base of bicarbonate drip changed from D5W to half normal saline. Significant bandemia noted today, gram positive cocci was noted in culture vancomycin was added to antibiotic medication regimen, last evening. 04/26: Family decision conveyed by patient's for comfort care measures, upon arrival of extended family members. Initiation of comfort care measures initiated. With family , friends and pastoral support the patient at [id number].
== END 2018-04-26 16:16 | disposition expired ==
LOC: NEPC 00:27 → NEDA 02:30 → EDBD 02:30 → MERGE 02:30 → HIMC 04:05
PROVIDERS: ADMIT Emergency Medicine; ATTEND Emergency Medicine